=== PATIENT | male | born 1965 | race Caucasian/White ===

== ENCOUNTER 2023-03-12 14:57 | Emergency (ER) | payer MEDICAID, SELFPAY ==
--- NOTE | ~2023-03-12 | XR_ITS ---
EXAMINATION: XR SOFT TISSUE NECK CLINICAL INDICATION: Dysphasia. Unable to swallow solids. COMPARISON: None available. TECHNIQUE: 2 views of the soft tissue neck were obtained. FINDINGS: There is prominence with some irregular nodulation of the epiglottis which could be related to epiglottitis however possible tumor cannot be excluded and correlation with clinical symptoms and echogenicity is recommended. The aryepiglottic folds are not seen and I am suspicious for this representing a mass. Retropharyngeal soft tissues unremarkable. XR/XR soft tissue neck IMPRESSION: Prominence of the epiglottis suspicious for possible mass involving the epiglottis such as within the vallecula. Clinical correlation to differentiate from epiglottitis recommended. CT may be of help in further evaluation with IV contrast of the neck.
--- NOTE | ~2023-03-12 | CT_ITS ---
EXAMINATION: CT SOFT TISSUE NECK WITH CONTRAST CLINICAL INFORMATION: Epiglottic prominence. Difficulty swallowing. COMPARISON: Neck radiographs from 03/11/2023. TECHNIQUE: Multidetector helical imaging was performed in the axial plane following the administration of 60 mL of Omnipaque 350 intravenous contrast. Multiple axial reformats and coronal/sagittal reconstructions were created the technologist workstation for review. This CT examination was performed using dose optimization techniques as appropriate, variously including the following: *Automated exposure control. *Adjustment of mA and/or kV according to patient size (this includes techniques or standardized protocols for targeted exams where dose is matched to indication/reason for exam; i.e. extremities or head). *Use of iterative reconstruction technique. DLP: 999 mGy-cm FINDINGS: Irregular nodular mucosal thickening of the epiglottis, bilateral aryepiglottic folds, and inferolateral rodriguez of the pharynx. The epiglottis measures up to 1.2 cm in thickness. There is a heterogeneous right level IIa lymph node, measuring up to 2.2 cm. There is a rounded left level IIa lymph node measuring up to 1.5 cm. No significant cutaneous thickening or subcutaneous inflammation. No discrete fluid collection within the deep tissues of the neck. The premaxillary, retromaxillary, pterygopalatine fossa, orbital apical, parapharyngeal, and prelaryngeal adipose tissue is maintained. Normal appearance of the parotid, submandibular, and thyroid glands. Scattered subcentimeter lymph nodes bilaterally, none of which are pathologically enlarged or abnormally enhancing. Normal mucosal contours of the pharynx and larynx without abnormal enhancement. Normal appearance of the hyoid bone, thyroid cartilage, or cartilaginous trachea. The airways remains widely patent. No radiopaque foreign bodies. The atlantooccipital and atlantoaxial articulations remain well aligned. Mild reversal the normal cervical lordosis centered on C5. Mild degenerative anterolisthesis of C4 on C5. No evidence of acute fracture or subluxation of the cervical spine. The vertebral body heights are maintained. The intervertebral disc spaces are maintained. Facet and uncovertebral joint arthropathy leads to osseous encroachment on the neural foramina from C3-C7. No evidence of epidural collection. There is no prevertebral soft tissue swelling. Normal opacification of the cervical arterial and venous structures. The visualized portion of the skull base is without significant abnormalities. Mild mucosal thickening of the paranasal sinuses. The mastoid air cells and middle ear cavities are clear. Moderate odontogenic disease with multifocal odontogenic enamel erosions and periapical lucencies. CT Upper Chest: The visualized lung apices and upper mediastinum are within normal limits. CT/CT soft tissue neck w IV con IMPRESSION: 1. Irregular nodular mucosal thickening of the epiglottis, bilateral aryepiglottic folds, and inferolateral rodriguez of the pharynx. Findings are suspicious for an underlying epiglottic/supraglottic malignancy. Recommend correlation with direct visualization. 2. Heterogeneous 2.2 cm right level IIa lymph node and rounded 1.5 cm left level IIa lymph node, suspicious for metastatic disease. 3. Moderate odontogenic disease.
--- NOTE | 2023-03-12 15:32 | ED_ITS ---
HPI - General Adult General Chief complaint: General Medical Stated complaint: something stuck in throat Time Seen by Provider: 03/12/23 17:06 Source: patient Mode of arrival: ambulatory Limitations: no limitations History of Present Illness HPI narrative: This is a 57 year old male history of COPD, morbid obesity presenting to the ED status post normal Barium swallow test two days ago for evaluation of choking s ensation. Patient reports that he has been unable to swallow solids for three weeks but tolerating fabien liquids. Feels like something is stuck in his throat. 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 Denies changes in voice, chest pain, shortness of breath, nausea, vomiting, abdominal pain, headache, vision changes, fevers, chills, weight loss, nightsweats, dizziness and weakness. Related Data Allergies Allergy/AdvReac Type Severity Reaction Status Date / Time No Known Allergies Allergy Verified 03/12/23 15:37 [No Known Allergies*] Review of Systems Review of Systems: Constitutional : No Weight loss, No Fever, No Chills, No Fatigue, No Malaise ENT/Mouth : No sore throat, No Rhinorrhea Eyes: No Eye Pain, No Swelling, No Redness Cardiovascular : No Chest Pain, No SOB, No Dyspnea on Exertion, No Orthopnea, No Edema, No Palpitations Respiratory : No Cough, No Sputum, No Wheezing Gastrointestinal : No Nausea, No Vomiting, No Diarrhea, No Constipation, No abdominal Pain, No Hematochezia, No Melena Genitourinary : No Dysuria, No Urinary Frequency, No Hematuria, Musculoskeletal : No joint pain, No Myalgias, No Joint Swelling Skin : No Skin Lesions, No rash Neuro : No Weakness, No Numbness, No Dizziness, No Headache Psych : No Anxiety/Panic, No Depression All other systems reviewed and are negative Yes all other systems are reviewed and are negative [facility] Past Medical History Attestation statement: The following information was validated with the patient. Source: old records reviewed and nursing notes reviewed Social History Social History Smoked in Last 30 Days: No Use of substances other than those prescribed or required for medical reasons: Yes Substance Use Type: Other Substance Use Frequency: Daily Last Used Substance: Hours (ago) Any prior treatment program specific to substance use: No Advance Directives: No Advance Directives Information Provided: No Physical Exam ED Vital Signs: Vital Signs - 24 hr 03/12/23 15:33 03/12/23 17:59 03/12/23 20:10 Temperature 97.0 F 99.4 F 98.0 F Pulse Rate 82 75 77 Respiratory Rate 19 16 18 Blood Pressure 168/78 H 152/85 H 142/82 H Pulse Oximetry 99 95 94 Oxygen Delivery Method Room Air BMI result Body Mass Index 48.0 vss Appearance: Alert.? Oriented X3.? No acute distress.?Speaking in full sentences controlling well. Head: Normocephalic, atraumatic, no step-offs or deformities Pharynx: normal posterior pharynx. No edema, or abscess. Controlling secretions well and speaking in full sentences. Eyes: Pupils equal, round and reactive to light.? Neck: Normal inspection.? Neck supple.? CVS: Normal heart rate and rhythm.? Pulses normal.? Respiratory: No respiratory distress.? Breath sounds normal.? Abdomen: Soft and nontender.? Skin: Skin warm and dry.? Normal skin color.? Normal skin turgor.? Extremities: No lower extremity edema.? No calf ttp. 5/5 strength to bilateral upper and lower extremities Neuro: Oriented X 3.? No motor deficit.? No sensory deficit. CN 2-12 intact Course Course Course Narrative: RME 57 yo male with history of COPD, morbid obesity who presents to the ED post normal Barium swallow test two days ago for evaluation of choking sensation, inability to swallow solids for three weeks but tolerating liquids fine. Feels like something is stuck in his throat. On arrival patient anxious, forced upper airway wheeze, no stridor. 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 Plan: XR soft tissue neck. GI referral Reevaluation(s) Reevaluation #1: X-ray showing prominence of the epiglottis, suspicious for possible mass involving the epiglottis, such as within the vallecular. I do not suspect that this is epiglottitis. CT soft tissue neck with contrast suggested, will order a t this time. CBC within normal limits. Chemistry unremarkabl.e. Time: 17:57 Reevaluation #2: Dr. Manas KELSEY recommends patient to have direct laryngoscopy at a center with ENT. This has however been going on for 3 weeks, will seek advise from ENT unsure if emergent transfer is need. Time: 21:23 Reevaluation #3: Dr. Childers [facility] ENT tells me there is no need for emergent visualization recommends 10 mg of Decadron at this time. Will discharge him home and give him follow-up instructions with ears nose [facility] throat, [facility] per orders of Dr. Childers. Time: 21:45 Medications Administered Discontinued Medications Generic Name Dose Route Start Last Admin Trade Name Freq PRN Reason Stop Dose Admin Iohexol 100 ml 03/12/23 18:24 03/12/23 18:24 Iohexol 350 Mg/Ml 100 Ml Infus..Btl IV 03/12/23 18:25 60 ml ONCE ONE Administration Medical Decision Making Medical Decision Making [facility] Narrative: 1756 57 year old male presents w/dysphagia to solids and liquids Physical exam benign. Concerns for esophageal stricture, retained foreign body, dysphagia, possible malignancy. No signs of airway compromise. Plan at this time soft tissue neck x-ray ordered from triage will follow, likely will require a soft tissue neck with IV contrast. Differential Diagnosis Differential Diagnoses: The differential diagnosis associated with the presentation includes Concerns for esophageal stricture, retained foreign body, dysphagia, possible malignancy. No signs of airway compromise Admission/Observation Consideration of admission/observation: Escalation of care including admission/observation considered Consult Healthcare Provider Management of the patient was discussed with: Pulp House Supervisor Lab Data [facility] Lab Attestation statement: I reviewed the patient's lab results. 03/12/23 17:49 03/12/23 17:49 Labs: Lab Results 03/12/23 03/12/23 Range/Units 17:49 17:49 WBC 9.6 (4.8-10.8) X10*3/uL RBC 5.04 (4.60-5.80) X10*6/uL Hgb 15.0 (14.0-18.0) g/dl Hct 43.4 (42.0-52.0) % MCV 86.1 (80.0-98.0) fL MCH 29.8 (27.0-33.0) pg MCHC 34.6 (31.0-36.0) g/dl RDW 12.5 (11.0-16.0) % Plt Count 323 (160-400) X10*3/uL MPV 8.8 L (9.4-12.4) fL Immature Gran % (Auto) 0.4 (0.0-0.4) % Neut % (Auto) 78.2 H (45-73) % Lymph % (Auto) 13.6 L (20-40) % Dare % (Auto) 7.4 (2-11) % Eos % (Auto) 0.1 (0-4) % Baso % (Auto) 0.3 (0-2) % Lymph # (Auto) 1.3 (1.2-4.9) X10*3/uL Dare # (Auto) 0.7 (0.1-1.2) X10*3/uL Eos # (Auto) 0.0 (0.0-0.4) X10*3/uL Baso # (Auto) 0.0 (0.0-0.2) X10*3/uL Abs Immat Gran (auto) 0.04 H (0.00-0.03) X10*3/uL Absolute Neuts (auto) 7.5 (2.0-8.3) x10*3/uL Absolute Nucleated RBC 0.000 (0.0-0.012) X10*3/uL Nucleated RBC % (auto) 0.0 (0.0-0.2) /100WBC Sodium 134 L (135-145) mmol/L Potassium 3.9 (3.3-5.1) mmol/L Chloride 96 (96-108) mmol/L Carbon Dioxide 26 (22-29) mmol/L Anion Gap 16 (12-20) BUN 11 (9-16) mg/dL Creatinine 1.01 (0.5-1.4) mg/dL Estim Creat Clear Calc 127.9 Estimated GFR > 60 Random Glucose 122 H (60-115) mg/dL Calcium 9.6 (8.4-10.2) mg/dL Independent Interpretation I performed an independent interpretation of an: Plain X-Ray (Prominence of epiglottis recommend CT scan) and CT Scan (Concerns for throat malignancy) Radiology Impression Discussion of test interpretation with radiology: I have reviewed the radiologist's reading. Core Measures AMI core measures followed: Yes Measure exclusions: not indicated Critical Care Time Critical Care Time Critical Care Time: Yes Total Critical Care Time: 45 Attestation: I attest to this time spent taking care of the patient, obtaining history, physical, reviewing labs, imaging, speaking to my attending, speaking to specialist. Discharge Plan Discharge Clinical Impression: Dysphagia Patient Disposition: Home, Self-Care Instructions: Dysphagia (ED) Additional Instructions: Take your medications as prescribed. If you were prescribed antibiotics today, it is important that you take your medication to their entirety, do not skip any doses, do not finish them early. Follow-up with your primary care provider this week. Return to the emergency department with new or worsening symptoms. In case of emergency call [address] scan shows suspicion for throat cancer so you you need to see a specialist for this tomorrow. Please call Ears, Nose and Throat first thing tomorrow morning tell them Dr. Childers needs you to be seen today. Please bring the scan disc, and copy of note. They will not see you without this! [phone] Referrals: Chato Thomason MD [Primary Care Provider] - 2 days Stand Alone Forms: Work/School Release
[2023-03-12 15:33] VITALS: BP 168/78; PULSE 82; RESP 19; TEMP 36.1; O2SAT 99; BMI 48.0
--- NOTE | 2023-03-12 16:36 | PC.NURSE ---
Pt became agitated regarding wait time. Pt educated that nursing staff is not able to disclose test results and that he would need to be evaluated by a provider. Pt walked out of waiting room at this time.
--- NOTE | 2023-03-12 17:22 | PC.NURSE ---
Registration notified me that the patient had returned at this time.
[2023-03-12 17:54] LABS: MANUAL DIFF FLAG NO
[2023-03-12 17:55] LABS: Basophils Percent Auto 0.3 % (0-2); Eosinophils Percent Auto 0.1 % (0-4); Hematocrit 43.4 % (42.0-52.0); Imm Gran Abs Auto 0.04 X10*3/uL (0.00-0.03); Imm Gran Pct Auto 0.4 % (0.0-0.4); Lymphocytes Absolute Auto 1.3 X10*3/uL (1.2-4.9); Lymphocytes Percent Auto 13.6 % (20-40); Mean Corpuscular HGB Conc 34.6 g/dl (31.0-36.0); Mean Corpuscular Hemoglobin 29.8 pg (27.0-33.0); Mean Corpuscular Volume 86.1 fL (80.0-98.0); Mean Platelet Volume 8.8 fL (9.4-12.4); Monocytes Absolute Auto 0.7 X10*3/uL (0.1-1.2); Monocytes Percent Auto 7.4 % (2-11); Neutrophils Absolute Auto 7.5 x10*3/uL (2.0-8.3); Neutrophils Percent Auto 78.2 % (45-73); Platelet Count 323 X10*3/uL (160-400); Red Blood Count 5.04 X10*6/uL (4.60-5.80); Red Cell Distribution Width 12.5 % (11.0-16.0); White Blood Count 9.6 X10*3/uL (4.8-10.8)
[2023-03-12 17:59] VITALS: BP 152/85; PULSE 75; RESP 16; TEMP 37.4; O2SAT 95
[2023-03-12 18:12] LABS: Anion Gap 16 (12-20); Blood Urea Nitrogen 11 mg/dL (9-16); Calcium 9.6 mg/dL (8.4-10.2); Carbon Dioxide 26 mmol/L (22-29); Chloride 96 mmol/L (96-108); Creatinine Clr Calc Pharmacy 127.9; Estimated Glomerular Filt Rate > 60; Glucose Random 122 mg/dL (60-115); Potassium 3.9 mmol/L (3.3-5.1); Sodium 134 mmol/L (135-145)
[2023-03-12] MEDS: iohexoL 350 MG/ML 100 ML INFUS..BTL IV (18:24)
[2023-03-12 20:10] VITALS: BP 142/82; PULSE 77; RESP 18; TEMP 36.7; O2SAT 94
[2023-03-12] MEDS: dexAMETHasone sod phosphate 10 MG/ML VIAL IVPUSH (21:53)
== END 2023-03-12 22:12 | disposition home or self-care (01) ==
PROVIDERS: Physician Assistant; Emergency Provider Emergency Medicine; PCP Internal Medicine
DX: R13.10 Dysphagia, unspecified (principal); M54.2 Cervicalgia; Z79.899 Other long term (current) drug therapy
CPT/HCPCS: 36415; 70360; 70491; 80048; 85025; 96374; 99284; J1100; Q9967

== ENCOUNTER 2025-01-14 13:16 | Outpatient (AMB) | payer MEDICAID, SELFPAY ==
--- NOTE | 2025-01-14 13:19 | A.OFFVIS_ITS ---
Vital Signs 01/14/25 13:30 BP 109/56 L Blood Pressure Location Lt brachial Position Sitting Pulse 56 Pulse Source Pulse Oximeter Pulse Oximetry (%) 97 Oxygen Delivery Method Room Air Intake Visit Reasons: Dysphagia unspecified type [employer] Required: No Accompanied by: Mother Allergies lisinopril Allergy (Unknown, Verified 01/14/25 15:14) Swelling HPI Comments Details: The patient is a 59-year-old male presenting with chronic pain management and peripheral neuropathy. The patient has a complex medical history, including a diagnosis of cancer that required multiple surgeries, including removal of the voice box and lymph nodes, as part of treatment for head and neck cancer. 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 This neuropathy was noted to have worsened after chemotherapy, although initial symptoms predated chemotherapy treatment. The patient's pain regime includes gabapentin, methadone and oxycodone; however, he reports limited relief from his current medications. The patient experiences significant discomfort due to his neuropathy, impacting his daily activities. He has trialed compression stockings with minimal benefits. 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 The patient has had seven cancer-related surgeries and exhibits lymphedema in the neck area from prior lymphadenectomy. - Onset: Feet: Initially noted before chemotherapy, worsened post-chemotherapy. Chest: started after multiple surgeries for cancer treatment. - Quality: Described as constant burning, pins, and needles. - Location: Both feet, chest, anterior neck - Exacerbating factors: Movement, nighttime. - Relieving factors: No significant relief reported with current treatments. - Interference with activities: Affects mobility and quality of sleep. - Affect: Pain impacts mood and overall psychological well-being. - Analgesia: Currently on gabapentin, oxycodone, methadone; limited effecti veness reported. No significant relief noted. - Adverse effects: None explicitly stated but potential for medication tolerance is implied. - Activities of Daily Living: Pain affects mobility, particularly during nighttime, contributing to sleep disturbance. - Aberrant Drug Related Behaviors: No evidence of misuse found, although reports of street use for methadone prior to medical management. [facility] Medical History (Updated 01/14/25 @ 15:14 by Juju Raymond) Severe episode of recurrent major depressive disorder Fistula GERD (gastroesophageal reflux disease) Dehiscence of wound Squamous cell carcinoma of larynx Osteoarthritis Hypertension Hypercholesterolemia COPD (chronic obstructive pulmonary disease) Simple chronic bronchitis Surgical History (Updated 01/14/25 @ 14:02 by Juju Raymond) Hx of laryngectomy Social History Substance Use Type: Other Review of Systems Const All systems reviewed & are unremarkable except as noted in HPI and below Physical Exam Vital Signs: Last Vital Signs Pulse 56 01/14/25 13:30 BP 109/56 L 01/14/25 13:30 Pulse Ox 97 01/14/25 13:30 Oxygen Delivery Method Room Air 01/14/25 13:30 General: awake, alert, oriented. Answers questions appropriately. Fully engaged in examination. Skin: warm, dry, intact. Scars from previous surgeries on the chest and left side neck. Lymphatic: Evidence of lymphedema in the neck area. HEENT: Normocephalic. Hearing intact. +Trach. Cardiac: External chest normal in appearance. Respiratory: No cough, audible wheezing or stridor. Abdomen: without gross distension. +feeding tube. MS: No obvious swelling or deformities. Neurological: Oriented to person, place, time and situation. Thought process intact. No gait abnormalities appreciated. Psychiatric: Appropriate mood and affect. Good judgment and insight. Assessment & Plan Assessment & Plan (1) Chronic pain syndrome: Code(s): G89.4 - Chronic pain syndrome Category: Medical (2) Non-cardiac chest pain: Code(s): R07.89 - Other chest pain Category: Medical (3) Anterior neck pain: Code(s): M54.2 - Cervicalgia Category: Medical (4) Other chronic postoperative pain: Code(s): G89.28 - Other chronic postprocedural pain Category: Medical (5) Peripheral neuropathy: Code(s): G62.9 - Polyneuropathy, unspecified Category: Medical (6) Lumbar radiculopathy: Code(s): M54.16 - Radiculopathy, lumbar region Category: Medical Plan I will order a nerve conduction study to detail the severity of peripheral neuropathy. Treatment options will include submission for insurance approval of topical capsaicin patches, with application procedures thoroughly explained. Records will be sourced from [facility] for holistic data on prior interventions and to guide subsequent management plans. An integrated approach addressing both pain control and underlying contributing factors allows for a tailored patient care strategy. I informed the patient about the likely multifaceted causes of his chronic pain syndrome, primarily attributable to chemotherapy-related neuropathy and past surgical interventions for cancer. The capsaicin patch procedure as a viable approach to neuropathy was extensively discussed, covering its mechanics, timing, potential side effects, and anticipated relief onset times. Insurance approval processes were highlighted. The need for a thorough review of the patient's comprehensive medical records from [facility] was underscored, providing foundational knowledge for future management. Both benefits and risks of procedures and medication adjustments were explained, with patient agreement obtained for the suggested studies and treatments. - Follow up on the nerve conduction study appointment when contacted. - Await call for scheduling Qutenza therapy once insurance approval is received. - Continue current medications as directed and report any adverse effects. - Sign medical release forms for obtaining past medical records. - Return for consultation after study results and implement necessary modifications in treatment as required. - Contact immediately if experiencing new or worsening symptoms. Follow up in the office once records have been received to further discuss care plan after medical record review. Patient was informed and verbally consented to the use of an ambient scribe for clinic note documentation during this visit. Orders: Orders NE electromyogram (EMG) Today G62.9 - Polyneuropathy, unspecified, M54.16 - Radiculopathy, lumbar region Coding Level of Care Code New Pt Level 4 (96293) Complex EM visit Add On G2211 Diagnoses Chronic pain syndrome G89.4 Non-cardiac chest pain R07.89 Anterior neck pain M54.2 Other chronic postoperative pain G89.28 Peripheral neuropathy G62.9 Lumbar radiculopathy M54.16
[2025-01-14 13:30] VITALS: BP 109/56; PULSE 56; O2SAT 97
--- OUTSIDE RECORDS SUMMARY | 2025-01-14 15:39 | XMS_ITS | Encounter Summary ---
Author Organization [employer] Address [address] [facility] 7 [place] [address] Care Team Providers Care Child Care Team Lead Name Role Phone Chato Thomason MD Primary Care Provider [phone] Reason for Visit * Reason Onset Date Comments PT-1 01/14/2025 Encounter Details Date Type Department Care Team ([facility] st Contact Info) Description 01/14/2025 Telephone [facility] MEDICINE [address] [place], [place] [id number] Chato Thomason MD [address] [place] [address] PT-1 (/) Social History Tobacco Use Types Packs/Day Years Used Date Smoking Tobacco: Former Cigarettes 1 - 2022 Passive Smoke Exposure: Current Smokeless Tobacco: Former Comments:Has quit smoking co mpletely 6 months ago. Alcohol Use Standard Drinks/Week Comments Never 0 (1 standard drink = 0.6 oz pur e alcohol) Depression Answer Date Recorded Patient Health Questionnaire-9 Score 19 08/03/2024 Patient Health Questionnaire-9 Score 19 08/03/2024 Last PHQ-9: Questionnaire Data Not on file 1 Housing Stability Answer Date Recorded What is your housing situation today? I have edson fontaine 08/11/[address] you li ve. Do you have problems with any of the following? None of the above 08/11/2023 Food Insecurity Answer Date Recorded Within the past 12 months, y ou worried that your food would run out before you got money to buy more: Never True 11/14/2023 Within the past 12 months,th e food you bought just didn't last and you didn't have enough money to get more: Never True Transportation Answer Date Recorded In the past 12 months, has l ack of transportation kept you from medical appts, meetings, work or from getting things needed for daily living? Yes, it has kept me from medical appointments or getting medications. 06/08/2024 Utilities Answer Date Recorded In the past 12 months, has t he electric, gas, oil or water company threatened to shut off services in your home? No 08/11/2023 Depression Answer Date Recorded Patient Health Questionnaire-2 Score 6 08/03/2024 Internet Access Answer Date Recorded Internet Access Q1 Yes 06/25/2024 Internet Access Q2 Not on file 06/25/2024 Sex and Gender Information Value Date Recorded Sex Assigned at Male 08/26/2022 10:19 AM EDT Legal Sex Male 10:19 AM EDT Gender Identity Choose not to disclose 10:19 AM EDT Sexual Orientation Choose not to disclose 2021 10:19 AM EDT documented as of this encounter Progress Notes * Kelsey Minaya - 01/14/2025 9:19 AM EDT CHW Kelsey Minaya, submitted PT1 for [facility] 5x a month as requested by patient. CHW called patient and informed of PT1 submission. documented in this encounter Miscellaneous Notes * Telephone Encounter - Reuben Edward - 01/14/2025 8:03 AM EDT Patient calling requesting PT1 Home Address verified: Y/N: Yes Provider name or facility name: [address] [place] [address]. [facility] Escort needed: Y/N: Yes Do you have a wheelchair: Y/N: No If yes- Manual or electric: Visits: (5 x Monthly) Contact Mom at [phone] documented in this encounter Plan of Treatment Upcoming Encounters Date Type Department Care Team ([facility] Contact Info) Description 01/24/2025 9:00 AM EDT Telemedicine [facility] [address] [place] [address] 02/11/2025 10:00 AM EDT Office Visit [facility] ADULT DENTAL [address] [place] [address] EvanSal DDS [address] [place] [address] 2025 11:00 AM EDT Telemedicine [facility] MED & PEDS [address] [place] [address] Linda Pelaez, WALT 505 [place] [address] 04/19/2025 2:00 PM EDT Office Visit [facility] MED & PEDS [address] [place] [address] Chato Thomason MD [address] [place] [address] documented as of this encounter Visit Diagnoses Not on filedocumented in this encounter Additional Health Concerns Assessment Noted Time PHQ-9 Depression Total Score: 19 024 3:44 PM EDT documented as of this encounter Care Teams Child Care Team Lead Relationship Specialty Start Date End Date Chato Thomason MD [address] [place] [address] PCP - General Internal Medicine 10/27/18 Mackenzie Roland Senior Applications Developer 07/09/24 Angela Pozo Senior Applications Developer 07/09/24 [facility] 06/12/23 documented as of this encounter
--- OUTSIDE RECORDS SUMMARY | 2025-01-14 15:39 | XMS_ITS | Encounter Summary ---
Author Organization [employer] Address [address] [facility] 7 [place] [address] Care Team Providers Care Consumer Sales Representative Name Role Phone Chato Thomason MD Primary Care Provider [phone] Reason for Visit * Reason Comments SDOH Concerns C3CM/IVON [place] PT1 Encounter Details Date Type Department Care Team ([facility] st Contact Info) Description 12/28/[address] [facility] MEDICINE [address] [place] [address] Chato Thomason MD [address] [place] [address] SDOH Concerns (MEJIA/IVON Vasques PT1) Social History Tobacco Use Types Packs/Day Years [...] encounter Progress Notes * Kelsey Minaya - 12/28/2024 9:39 AM EST PT1 to [facility] submitted today. Patient's mother was informed. Phone number to scheduletransportation for future appts given to patient's mother. documented in this encounter Plan of Treatment Upcoming Encounters Date Type Department Care Team (Late st Contact Info) Description 01/24/2025 9:[address] [facility] MEDICINE [address] [place] [address] 02/11/2025 10:00 AM EDT Office Visit [facility] ADULT DENTAL [address] [place] [address] Sal Gordon DDS [address] [place] [address] 2025 11:[address] [facility] MED & PEDS [address] [place] [address] Linda Pelaez, WALT [address] [place] [address] 04/19/2025 2:00 PM EDT Office Visit [facility] MED & PEDS [address] [place] [address] Chato Thomason MD [address] [place] [address] documented as of this encounter Visit Diagnoses Not on filedocumented in this encounter Additional Health Concerns Assessment Noted Time PHQ-9 Depression Total Score: 19 024 3:44 PM EDT documented as of this encounter Care Teams Consumer Sales Representative Relationship Specialty Start Date End Date Chato Thomason MD [address] [place] [address] PCP - General Internal Medicine 10/27/18 Mackenzie Roland Business Continuity Manager 07/09/24 Angela Pozo Business Continuity Manager 07/09/24 [facility] 06/12/23 documented as of this encounter
--- OUTSIDE RECORDS SUMMARY | 2025-01-14 15:39 | XMS_ITS | Encounter Summary ---
Author Organization [employer] Address 75 [facility] 7t [place] [address] Care Team Providers Care Solicitor Patent Name Role Phone Chato Thomason MD Primary Care Provider [phone] Encounter Details Date Type Department Care Team ([facility] st Contact Info) Description 01/12/2025 Patient Outreach [facility] MEDICINE [address] [place] [address] Chato Thomason MD [address] [place] [address] Social History Tobacco Use Types Packs/Day Years [...] AM EDT documented as of this encounter Plan of Treatment Upcoming Encounters Date Type Department Care Team (Late st Contact Info) Description 01/24/2025 9:00 AM EDT Telemedicine [facility] MEDICINE [address] [place] [address] 02/11/2025 10:00 AM EDT Office Visit [facility] ADULT DENTAL [address] [place] [address] Sal Gordon DDS [address] [place] [address] 2025 11:00 AM EDT Telemedicine [facility] MED & PEDS [address] [place] [address] Linda Pelaez RN 505 [place] [address] 04/19/2025 2:00 PM EDT Office Visit [facility] MED & PEDS [address] [place] [address] Chato Thomason MD [address] [place] [address] documented as of this encounter Visit Diagnoses Not on filedocumented in this encounter Additional Health Concerns Assessment Noted Time PHQ-9 Depression Total Score: 19 024 3:44 PM EDT documented as of this encounter Care Teams Solicitor Patent Relationship Specialty Start Date End Date Chato Thomason MD [address] [place] [address] PCP - General Internal Medicine 10/27/18 Mackenzie Roland Fiction And Nonfiction Author 07/09/24 Angela Pozo Fiction And Nonfiction Author 07/09/24 [facility] 06/12/23 documented as of this encounter
--- OUTSIDE RECORDS SUMMARY | 2025-01-14 15:39 | XMS_ITS | Encounter Summary ---
Author Organization [employer] Address [address] [place] [address] 7t [place] [address] Care Team Providers Care Peanut Sheller Name Role Phone Chato Thomason MD Primary Care Provider [phone] Reason for Visit * Reason Onset Date Comments Med Refill 01/10/2025 Encounter Details Date Type Department Care Team ([facility] Contact Info) Description 01/10/2025 Refill [facility] CHC MED & PEDS [address] [place] [address] Linda Pelaez, RN [address] [place] [address] Anxiety; Squamous cell carcinoma of larynx (CMS/HCC) Social History Tobacco Use Types Packs/Day Years [...] is your housing situation today? I have edsonlynn fontaine 08/11/[address] you [...] Info) Description 01/24/2025 9:00 AM EDT Telemedicine [facility] MEDICINE [address] [place] [address] 02/11/2025 10:00 AM EDT Office Visit [facility] ADULT DENTAL [address] [place] [address] Sal Gordon DDS [address] [place] [address] 2025 11:00 AM EDT Telemedicine [facility] MED & PEDS [address] [place] [address] Linda Pelaez, WALT [address] [place] [address] 04/19/2025 2:00 PM EDT Office Visit [facility] MED & PEDS [address] [place] [address] Chato Thomason MD [address] [place] [address] documented as of this encounter Visit Diagnoses Diagnosis Anxiety Anxiety state, unspecified Squamous cell carcinoma of larynx (CMS/HCC) Malignant neoplasm of larynx, unspecified site documented in this encounter Additional Health Concerns Assessment Noted Time PHQ-9 Depression Total Score: 19 024 3:44 PM EDT documented as of this encounter Care Teams Peanut Sheller Relationship Specialty Start Date End Date Chato Thomason MD [address] [place] [address] PCP - General Internal Medicine 10/27/18 Mackenzie Roland Shirt Folding Machine Operator 07/09/24 Angela Pozo Shirt Folding Machine Operator 07/09/24 [facility] 06/12/23 documented as of this encounter
--- OUTSIDE RECORDS SUMMARY | 2025-01-14 15:39 | XMS_ITS | Encounter Summary ---
Author Organization [employer] Address [address] [place] [address] 7t [place] [address] Care Team Providers Care Pumping Supervisor Name Role Phone Chato Thomason MD Primary Care Provider [phone] Encounter Details Date Type Department Care Team ([facility] st Contact Info) Description 12/17/2024 Telephone [facility] CHC ADULT DENTAL [address] [place], [place] [phone] Gela Reid, DDS [address] [place], [place] [phone] Social History Tobacco Use Types Packs/Day Years [...] AM EDT documented as of this encounter Miscellaneous Notes * Telephone Encounter - Venkat Zheng - 12/17/2024 10:15 AM EST call was transferred. Angelica was the one on the phone, unable to speak with other person that is not the patient due to her name not being on the HIPAA. Angelica got really upset and start giving attitude over the phone. I told her that if at least the pt is next to her we can be able to continue the communication. As I was talking to the patient Angelica kept talking over saying I don't know why she doesn't want to talk to me, I already spoke with Dr. Thomason (medical), this is ridiculous. I don't know what's her problem I told her that we can resolve this upon next visit if they do the HIPAA again with her name on it, also specified to Angelica that medical is different than dental on which she responded fuck you on the background. I finish the call by telling both that at this point the conversation has ended and to have a good day. documented in this encounter Plan of Treatment Upcoming Encounters Date Type Department Care Team (Late st Contact Info) Description 01/24/2025 9:00 AM EDT Telemedicine [facility] MEDICINE [address] [place] [address] 02/11/2025 10:00 AM EDT Office Visit [facility] ADULT DENTAL [address] [place] [address] Sal Gordon DDS [address] [place] [address] 2025 11:00 AM EDT Telemedicine [facility] MED & PEDS [address] [place] [address] Linda Pelaez, RN [address] [place] [address] 04/19/2025 2:00 PM EDT Office Visit [facility] MED & PEDS [address] [place] [address] Chato Thomason MD [address] [place] [address] documented as of this encounter Visit Diagnoses Not on filedocumented in this encounter Additional Health Concerns Assessment Noted Time PHQ-9 Depression Total Score: 19 024 3:44 PM EDT documented as of this encounter Care Teams Pumping Supervisor Relationship Specialty Start Date End Date Chato Thomason MD [address] [place] [address] PCP - General Internal Medicine 10/27/18 Mackenzie Roland Financial Administration Officer 07/09/24 Angela Pozo Financial Administration Officer 07/09/24 [facility] 06/12/23 documented as of this encounter
--- OUTSIDE RECORDS SUMMARY | 2025-01-14 15:39 | XMS_ITS | Encounter Summary ---
Author Organization [employer] Address [address] [facility] 7 [place] [address] Care Team Providers Care Reformatory Attendant Name Role Phone Chato Thomason MD Primary Care Provider [phone] Reason for Visit * Reason Onset Date Comments Medication Question 12/20/2024 Encounter Details Date Type Department Care Team ([facility] st Contact Info) Description 12/20/2024 Telephone [facility] MEDICINE [address] [place], [place] [phone] Chato Thomason MD [address] [place] [address] Medication Question Social History Tobacco Use Types Packs/Day Years Used Date Smoking Tobacco: Former Cigarettes 1 2022 Passive Smoke Exposure: Current Smokeless Tobacco: [...] encounter Miscellaneous Notes * Telephone Encounter - Fatoumata Simeon RN - 12/21/2024 11:15 AM EST TC to pt mom with recommendations from provider. Informed pt mom that provider has increased dose of trazodone and that provider has made a referral to pain management. All questions answered. Pt momverbalized understanding and agreement with plan. * Telephone Encounter - Fatoumata Simeon RN - 12/20/2024 9:12 AM EST TC to pt mom to clarify. Pt mom stated that the pt has increased frustration and anxiety after taking lorazepam, pt is taking 100mg of trazodone daily at bedtime and is waking up every 2 to 3 hours during the night, pt is still complaining of unrelieved pain with gabapentin dose increase. Pt mom stated that oxycodone and lorazepam also needs to be refilled for pt. Routing to provider and LEAF CONDITIONER for r eview and recommendation. * Telephone Encounter - Reuben Mcelroy 12/20/2024 8:16 AM EST Tc from pt mom stating that she talked with PCP and was told to Increase the dosage for med gabapentin (Neurontin) 250 MG/5ML solution but she states nikhil the pt is still complaining that it is not Working. She states that she was Intrusted by the PCP that she would have to see a Neurologist if it wasn't working. And Mom states that Pt is still having trouble sleeping and that the traZODone (Desyrel) 50 MG tablet is not helping. Pt mom also wanted to mention that Pt has been depressed lately and she was wondering if that was aSide Affect from the Lorazepam and she states that the med Dosent Help Pt and she was wondering if it could be changed. Contact pt at [phone] documented in this encounter Plan of Treatment Upcoming Encounters Date Type Department Care Team (Late st Contact Info) Description 01/24/2025 9:00 AM EDT Telemedicine [facility] MEDICINE [address] [place] [address] 02/11/2025 10:00 AM EDT Office Visit [facility] ADULT DENTAL [address] [place] [address] Sal Gordon DDS [address] [place] [address] 2025 11:00 AM EDT Telemedicine [facility] MED & PEDS [address] [place] [address] Linda Pelaez RN [address] [place] [address] 04/19/2025 2:00 PM EDT Office Visit [facility] MED & PEDS [address] [place] [address] Chato Thomason MD [address] [place] [address] documented as of this encounter Visit Diagnoses Not on filedocumented in this encounter Additional Health Concerns Assessment Noted Time PHQ-9 Depression Total Score: 19 024 3:44 PM EDT documented as of this encounter Care Teams Reformatory Attendant Relationship Specialty Start Date End Date Chato Thomason MD [address] [place] [address] PCP - General Internal Medicine 10/27/18 Mackenzie Roland Rotoprinter 07/09/24 Angela Pozo Rotoprinter 07/09/24 [facility] 06/12/23 documented as of this encounter
--- OUTSIDE RECORDS SUMMARY | 2025-01-14 15:39 | XMS_ITS | Encounter Summary ---
Author Organization [employer] Address [address] [place] [address] 7 [place] [address] Care Team Providers Care Digital Advisor Name Role Phone Chato Thomason MD Primary Care Provider [phone] Reason for Visit * Reason Comments Pre-visit Planning SDOH will need to be completed in office. Encounter Details Date Type Department Care Team ([facility] Contact Info) Description 01/06/2025 Patient Outreach [facility] CHC MED & PEDS [address] [place], [place] [phone] Chato Thomason MD [address] [place] [address] Pre-visit Planning (SDOH will need to be completed in office. ) Social History Tobacco Use Types Packs/Day Years [...] as of this encounter Progress Notes * Maranda Neff - 01/06/2025 4:35 PM EDT ESTEFANI Conde placed successful outbound call to patient for pre-visit planning. Patient name and confirmed. Patient confirms appt date and time, and has transportation arrangements. Biggest concern for appointment at this time is no concerns. Appropriate screenings completed in anticipation ofappointment. documented in this encounter Plan of Treatment Upcoming Encounters Date Type Department Care Team (Late st Contact Info) Description 01/24/2025 9:00 AM EDT Telemedicine [facility] MEDICINE [address] [place], [place] [phone] 02/11/2025 10:00 AM EDT Office Visit [facility] ADULT DENTAL [address] [place] [address] Sal Gordon DDS [address] [place] [address] 2025 11:00 AM EDT Telemedicine [facility] MED & PEDS [address] [place] [address] Linda Pelaez RN [address] [place] [address] 04/19/2025 2:00 PM EDT Office Visit [facility] MED & PEDS [address] [place] [address] Chato Thomason MD [address] [place] [address] documented as of this encounter Visit Diagnoses Not on filedocumented in this encounter Additional Health Concerns Assessment Noted Time PHQ-9 Depression Total Score: 19 024 3:44 PM EDT documented as of this encounter Care Teams Digital Advisor Relationship Specialty Start Date End Date Chato Thomason MD [address] [place] [address] PCP - General Internal Medicine 10/27/18 Mackenzie Roland Mechanic/Welder 07/09/24 Angela Pozo Mechanic/Welder 07/09/24 [facility] 06/12/23 documented as of this encounter
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
--- OUTSIDE RECORDS SUMMARY | 2025-01-14 15:39 | XMS_ITS | Encounter Summary ---
Author Organization [employer] Address 75 [facility] 7 [place] [address] Care Team Providers Care It Application Administrator Name Role Phone Chato Thomason MD Primary Care Provider [phone] Reason for Visit * Reason Onset Date Comments Chart Prep 01/12/2025 Encounter Details Date Type Department Care Team ([facility] Contact Info) Description 01/12/2025 Telephone [facility] CHC MED & PEDS [address] [place], [place] [phone] Chato Thomason MD 505 [place] [address] Chart Prep Social History Tobacco Use Types Packs/Day Years [...] encounter Miscellaneous Notes * Telephone Encounter - Radha Preston MA - 01/12/2025 3:10 PM EDT Chart Prep Labs: not done Images: done Vaccines due: yes Referrals: complete Screenings: colonoscopy , STI screening Overdue care gaps: Sbirt, PHQ-9, Oral Health, disability screening documented in this encounter Plan of Treatment Upcoming Encounters Date Type Department Care Team (Late st Contact Info) Description 01/24/2025 9:00 AM EDT Telemedicine [facility] MEDICINE [address] [place] [address] 02/11/2025 10:00 AM EDT Office Visit [facility] ADULT DENTAL [address] [place] [address] Sal Gordon DDS [address] [place] [address] 2025 11:00 AM EDT Telemedicine [facility] CHC MED & PEDS [address] [place] [address] Linda Pelaez, WALT 505 [place] [address] 04/19/2025 2:00 PM EDT Office Visit [facility] CHC MED & PEDS [address] [place] [address] Chato Thomason MD 505 [place] [address] documented as of this encounter Visit Diagnoses Not on filedocumented in this encounter Additional Health Concerns Assessment Noted Time PHQ-9 Depression Total Score: 19 024 3:44 PM EDT documented as of this encounter Care Teams It Application Administrator Relationship Specialty Start Date End Date Chato Thomason MD 505 [place] [address] PCP - General Internal Medicine 10/27/18 Mackenzie Roland Community Representative 07/09/24 Angela Pozo Community Representative 07/09/24 [facility] 06/12/23 documented as of this encounter
--- OUTSIDE RECORDS SUMMARY | 2025-01-14 15:39 | XMS_ITS | Encounter Summary ---
Author Organization [employer] Address 75 [facility] 7t [place] [address] Care Team Providers Care Tele Tech Name Role Phone Chato Thomason MD Primary Care Provider [phone] Encounter Details Date Type Department Care Team ([facility] st Contact Info) Description 01/07/2025 Population Health Risk Score [facility] (C3) Department [address] [id number] Provider, Population Health Generic Social History Tobacco Use Types Packs/Day Years [...] Upcoming Encounters Date Type Department Care Team ([facility] st Contact Info) Description 01/24/2025 9:00 AM EDT Telemedicine [facility] MEDICINE [address] [place] [address] 02/11/2025 10:00 AM EDT Office Visit [facility] ADULT DENTAL [address] [place] [address] Sal Gordon DDS [address] [place] [address] 2025 11:00 AM EDT Telemedicine [facility] MED & PEDS 505 [place] [address] Linda Pelaez RN [address] [place] [address] 04/19/2025 2:00 PM EDT Office Visit [facility] MED & PEDS [address] [place] [address] Chato Thomason MD 505 [place] [address] documented as of this encounter Visit Diagnoses Not on filedocumented in this encounter Additional Health Concerns Assessment Noted Time PHQ-9 Depression Total Score: 19 024 3:44 PM EDT documented as of this encounter Care Teams Tele Tech Relationship Specialty Start Date End Date Chato Thomason MD [address] [place] [address] PCP - General Internal Medicine 10/27/18 Mackenzie Roland Banana Expert 07/09/24 Angela Pozo Banana Expert 07/09/24 [facility] 06/12/23 documented as of this encounter
--- OUTSIDE RECORDS SUMMARY | 2025-01-14 15:39 | XMS_ITS | Encounter Summary ---
Author Organization [employer] Address 75 [facility] 7t [place] [address] Care Team Providers Care Woven Paper Hat Mender Name Role Phone Chato Thomason MD Primary Care Provider [phone] Reason for Visit * Reason Comments Care Coordination Outreach Encounter Details Date Type Department Care Team (Latest Contact Info) Description 01/12/2025 Patient Outreach [facility] MEDICINE [address] [place] [address] Chato Thomason MD 505 [place] [address] Care Coordination (Outreach) Social History Tobacco Use Types Packs/Day Years Used Date Smoking Tobacco: Former Cigarettes - 2022 Passive Smoke Exposure: Current Smokeless [...] as of this encounter Progress Notes * Josephine Block - 01/12/2025 2:39 PM EDT CHW Josephine Block , placed outbound call to patient in regards to offer services. CHW introducing herself from [facility] CM Department with CHW's name, department and direct contact [phone] requesting call back. Will re-attempt to contact within 5 days. and address not confirmed. documented in this encounter Plan of Treatment Upcoming Encounters Date Type Department Care Team (Late st Contact Info) Description 01/24/2025 9:00 AM EDT Telemedicine [facility] MEDICINE [address] [place] [address] 02/11/2025 10:00 AM EDT Office Visit [facility] ADULT DENTAL [address] [place] [address] Sal Gordon DDS [address] [place] [address] 2025 11:00 AM EDT Telemedicine [facility] CHC MED & PEDS [address] [place] [address] Linda Pelaez RN [address] [place] [address] 04/19/2025 2:00 PM EDT Office Visit [facility] CHC MED & PEDS 505 [place] [address] Chato Thomason MD 505 [place] [address] documented as of this encounter Visit Diagnoses Not on filedocumented in this encounter Additional Health Concerns Assessment Noted Time PHQ-9 Depression Total Score: 19 024 3:44 PM EDT documented as of this encounter Care Teams Woven Paper Hat Mender Relationship Specialty Start Date End Date Chato Thomason MD 505 [place] [address] PCP - General Internal Medicine 10/27/18 Mackenzie Roland Blacksmith Apprentice 07/09/24 Angela Pozo Blacksmith Apprentice 07/09/24 [facility] 06/12/23 documented as of this encounter
--- OUTSIDE RECORDS SUMMARY | 2025-01-14 15:39 | XMS_ITS | Encounter Summary ---
Author Organization [employer] Address [address] [place] [address] 7t [place] [address] Care Team Providers Care Template Checker Name Role Phone Chato Thomason MD Primary Care Provider [phone] Reason for Visit * Reason Comments controlled substance treatment Encounter Details Date Type Department Care Team (Latest Contact Info) Description 01/10/2025 1:30 PM EDT Telemedicine [facility] MED & PEDS 505 [place], [place] [phone] Linda Pelaez RN 505 [place] [address] Long-term current use of opiate analgesic; Long-term current use of benzodiazepine Social History Tobacco Use Types Packs/Day Years [...] as of this encounter Progress Notes * Linda Pelaez RN - 01/10/2025 1:30 PM EDT S: ASSEMBLY HAND Televisit. Spoke with Angelica, patient's mother who is on HIPAA. Per PCP ok to do ASSEMBLY HAND Televisits. Patient is taking Lorazepam 1 mg every 12 hrs PRN. Oxycodone 7.5mg Q 6hrs PRN. Denies any adverse events. Last PCP f/u was on 10/14/24. F/u with PCP 01/13/25. O: CLOSING SUPERVISOR checked on 01/10/25. Lorazepam last refilled on 12/22/24. Pill count performed over the phone,2 pills left, 1 expected. Oxycodone refilled on 12/22/24, 4 left, 0 expected. Medications are not being overused. A: Chronic opioid use use r/t chronic pain. P: Patient to cont. with current medication regimen as needed and take medication only as directed.Next ASSEMBLY HAND NV scheduled for 03/28/25 @11am. F/u with PCP 01/13/25. f/u sooner PRN. Patient verbalized understanding and agreed to plan. documented in this encounter Plan of Treatment Upcoming Encounters Date Type Department Care Team (Late st Contact Info) Description 01/24/2025 9:00 AM EDT Telemedicine [facility] MEDICINE [address] [place] [address] 02/11/2025 10:00 AM EDT Office Visit [facility] ADULT DENTAL [address] [place] [address] Sal Gordon DDS [address] [place] [address] 2025 11:00 AM EDT Telemedicine [facility] MED & PEDS [address] [place] [address] Linda Pelaez RN 505 [place] [address] 04/19/2025 2:00 PM EDT Office Visit [facility] MED & PEDS 505 [place] [address] Chato Thomason MD 505 [place] [address] documented as of this encounter Visit Diagnoses Diagnosis Long-term current use of opiate analgesic Encounter for long-term (current) use of other medications Long-term current use of benzodiazepine documented in this encounter Additional Health Concerns Assessment Noted Time PHQ-9 Depression Total Score: 19 024 3:44 PM EDT documented as of this encounter Care Teams Template Checker Relationship Specialty Start Date End Date Chato Thomason MD [address] [place] [address] PCP - General Internal Medicine 10/27/18 Mackenzie Roland Wildlife Biologist 07/09/24 Angela Pozo Wildlife Biologist 07/09/24 [facility] 06/12/23 documented as of this encounter
--- OUTSIDE RECORDS SUMMARY | 2025-01-14 15:39 | XMS_ITS | Encounter Summary ---
Author Organization [employer] Address 75 [facility] 7t [place] [address] Care Team Providers Care Tire Maintenance Technician Name Role Phone Chato Thomason MD Primary Care Provider [phone] Encounter Details Date Type Department Care Team (Latest Contact Info) Description 01/13/2025 Travel Social History Tobacco Use Types Packs/Day Years Used Date Smoking Tobacco: Former Cigarettes 8 - 2022 Passive Smoke Exposure: Current [...] Info) Description 01/24/2025 9:00 AM EDT Telemedicine [facility] MEDICINE [address] [place] [address] 02/11/2025 10:00 AM EDT Office Visit [facility] ADULT DENTAL [address] [place] [address] Sal Gordon DDS [address] [place] [address] 2025 11:00 AM EDT Telemedicine [facility] MED & PEDS 505 [place] [address] Linda Pelaez RN 505 [place] [address] 04/19/2025 2:00 PM EDT Office Visit [facility] MED & PEDS 505 [place] [address] Chato Thomason MD 505 [place] [address] documented as of this encounter Visit Diagnoses Not on filedocumented in this encounter Additional Health Concerns Assessment Noted Time PHQ-9 Depression Total Score: 19 024 3:44 PM EDT documented as of this encounter Care Teams Tire Maintenance Technician Relationship Specialty Start Date End Date Chato Thomason MD 505 [place] [address] PCP - General Internal Medicine 10/27/18 Mackenzie Roland Processes Chemical Design Engineer 07/09/24 Angela Pozo Processes Chemical Design Engineer 07/09/24 [facility] 06/12/23 documented as of this encounter
--- OUTSIDE RECORDS SUMMARY | 2025-01-14 15:39 | XMS_ITS | Encounter Summary ---
Author Organization [employer] Address 75 [facility] 7 [place] [address] Care Team Providers Care Supervisor Paste Plant Name Role Phone Chato Thomason MD Primary Care Provider [phone] Reason for Visit * Reason Comments Care Coordination C/CM Chart Review Encounter Details Date Type Department Care Team (Latest Contact Info) Description 01/12/2025 Patient Outreach [facility] MEDICINE [address] [place] [address] Chato Thomason MD [address] [place] [address] Care Coordination (C/CM Chart Review) Social History Tobacco Use Types Packs/Day Years [...] Progress Notes * Josephine Block - 01/12/2025 11:20 AM EDT CM/C3 FELICE Block chart Review CASEW Josephine Block reviewed chart review completed by NYASIA Sheehan RN, performed chart review, in anticipation of initial assessment with patient, as patient has stratified for C3 Adult Complex Care through the ADT feed. History significant for hypertension, depression. Specialists include pain medicine, ophthalmology, podiatry. Pt has multiple ED visits. Patient admitted to [facility] on 01/11/2025 with no pending discharge. Last appointment in PCP office on 12/24/24. Next appointment scheduled for 01/19/25. documented in this encounter Plan of Treatment Upcoming Encounters Date Type Department Care Team (Late st Contact Info) Description 01/24/2025 9:00 AM EDT Telemedicine [facility] MEDICINE [address] [place] [address] 02/11/2025 10:00 AM EDT Office Visit [facility] ADULT DENTAL [address] [place] [address] Sal Gordon DDS [address] [place] [address] 2025 11:00 AM EDT Telemedicine [facility] MED & PEDS [address] [place] [address] Linda Pelaez RN 505 [place] [address] 04/19/2025 2:00 PM EDT Office Visit [facility] MED & PEDS [address] [place] [address] Chato Thomason MD 505 [place] [address] documented as of this encounter Visit Diagnoses Not on filedocumented in this encounter Additional Health Concerns Assessment Noted Time PHQ-9 Depression Total Score: 19 024 3:44 PM EDT documented as of this encounter Care Teams Supervisor Paste Plant Relationship Specialty Start Date End Date Chato Thomason MD 505 [place] [address] PCP - General Internal Medicine 10/27/18 Mackenzie Roland Terrazzo Layer 07/09/24 Angela Pozo Terrazzo Layer 07/09/24 [facility] 06/12/23 documented as of this encounter
--- OUTSIDE RECORDS SUMMARY | 2025-01-14 15:39 | XMS_ITS | Encounter Summary ---
Author Organization [employer] Address 75 [facility] 7t [place] [address] Care Team Providers Care Dramatic Art Teacher Name Role Phone Chato Thomason MD Primary Care Provider [phone] Encounter Details Date Type Department Care Team (Latest Contact Info) Description 01/10/2025 Travel Social History Tobacco Use Types Packs/Day [...] Info) Description 01/24/2025 9:00 AM EDT Telemedicine [facility] MEDICINE 230 [place] [address] 02/11/2025 10:00 AM EDT Office Visit [facility] ADULT DENTAL [address] [place] [address] Sal Gordon DDS [address] [place] [address] 2025 11:00 AM EDT Telemedicine [facility] MED & PEDS 505 [place] [address] Linda Pelaez RN 505 [place] [address] 04/19/2025 2:00 PM EDT Office Visit [facility] MED & PEDS [address] [place] [address] Chato Thomason MD 505 [place] [address] documented as of this encounter Visit Diagnoses Not on filedocumented in this encounter Additional Health Concerns Assessment Noted Time PHQ-9 Depression Total Score: 19 024 3:44 PM EDT documented as of this encounter Care Teams Dramatic Art Teacher Relationship Specialty Start Date End Date Chato Thomason MD [address] [place] [address] PCP - General Internal Medicine 10/27/18 Mackenzie Roland Heat Treating Furnace Tender 07/09/24 Angela Pozo Heat Treating Furnace Tender 07/09/24 [facility] 06/12/23 documented as of this encounter
--- OUTSIDE RECORDS SUMMARY | 2025-01-14 15:39 | XMS_ITS | Encounter Summary ---
Author Organization [employer] Address 75 [facility] 7 [place] [address] Care Team Providers Care Injection Molding Machine Operator Name Role Phone Chato Thomason MD Primary Care Provider [phone] Reason for Visit * Reason Onset Date Comments PT1 12/28/2024 Encounter Details Date Type Department Care Team ([facility] st Contact Info) Description 12/28/[address] [facility] MEDICINE [address] [place], [place] [phone] Chato Thomason MD 505 [place] [address] PT1 Social History Tobacco Use Types Packs/Day Years [...] encounter Miscellaneous Notes * Telephone Encounter - Lupe Lopez - 12/28/2024 8:03 AM EST Patient calling requesting PT1 Home Address verified: Y/N: Yes Provider name or facility name: [address] [place] [address] [place] [address] - Pain Management Escort needed: Y/N: Yes Do you have a wheelchair: Y/N: No If yes- Manual or electric: N/A Visits: (2x monthly) documented in this encounter Plan of Treatment Upcoming Encounters Date Type Department Care Team (Late st Contact Info) Description 01/24/2025 9:[address] [facility] MEDICINE [address] [place], [place] [phone] 02/11/2025 10:00 AM EDT Office Visit [facility] ADULT DENTAL [address] [place] [address] Sal Gordon DDS [address] [place] [address] 2025 11:00 AM EDT Telemedicine [facility] MED & PEDS [address] [place] [address] Linda Pelaez RN 505 [place] [address] 04/19/2025 2:00 PM EDT Office Visit [facility] MED & PEDS [address] [place] [address] Chato Thomason MD [address] [place] [address] documented as of this encounter Visit Diagnoses Not on filedocumented in this encounter Additional Health Concerns Assessment Noted Time PHQ-9 Depression Total Score: 19 024 3:44 PM EDT documented as of this encounter Care Teams Injection Molding Machine Operator Relationship Specialty Start Date End Date Chato Thomason MD [address] [place] [address] PCP - General Internal Medicine 10/27/18 Mackenzie Roland Respiratory Therapy Manager 07/09/24 Angela Pozo Respiratory Therapy Manager 07/09/24 [facility] 06/12/23 documented as of this encounter
--- OUTSIDE RECORDS SUMMARY | 2025-01-14 15:39 | XMS_ITS | Encounter Summary ---
Author Organization [employer] Address [address] [place] [address] 7t [place] [address] Care Team Providers Care Equipment Operator/Laborer/Supervisor Name Role Phone Chato Thomason MD Primary Care Provider [phone] Encounter Details Date Type Department Care Team ([facility] st Contact Info) Description 01/12/2025 Patient Outreach [facility] MED & PEDS [address] [place], [place] [phone] Chato Thomason MD [address] [place] [address] Social History Tobacco Use Types Packs/Day Years [...] as of this encounter Progress Notes * Alisha Sheehan RN - 01/12/2025 10:56 AM EDT NYASIA Sheehan RN, performed chart review, in anticipation of initial assessment with patient, as patient has stratified for C3 Adult Complex Care through the ADT feed. History significant for hypertension, depression. Specialists include pain medicine, ophthalmology, podiatry. Pt has multiple ED visits. Patient admitted to [facility] on 01/11/2025 with no pending discharge. Last appointment in PCP office on 12/24/24. Next appointment scheduled for 01/19/25. documented in this encounter Plan of Treatment Upcoming Encounters Date Type Department Care Team (Late st Contact Info) Description 01/24/2025 9:00 AM EDT Telemedicine [facility] MEDICINE 230 [place], [place] [phone] 02/11/2025 10:00 AM EDT Office Visit [facility] ADULT DENTAL [address] [place] [address] Sal Gordon DDS [address] [place] [address] 2025 11:00 AM EDT Telemedicine [facility] MED & PEDS [address] [place] [address] Linda Pelaez RN [address] [place] [address] 04/19/2025 2:00 PM EDT Office Visit [facility] MED & PEDS [address] [place] [address] Chato Thomason MD [address] [place] [address] documented as of this encounter Visit Diagnoses Not on filedocumented in this encounter Additional Health Concerns Assessment Noted Time PHQ-9 Depression Total Score: 19 024 3:44 PM EDT documented as of this encounter Care Teams Equipment Operator/Laborer/Supervisor Relationship Specialty Start Date End Date Chato Thomason MD [address] [place] [address] PCP - General Internal Medicine 10/27/18 Mackenzie Roland Fleet Sales Associate 07/09/24 Angela Pozo Fleet Sales Associate 07/09/24 [facility] 06/12/23 documented as of this encounter
--- OUTSIDE RECORDS SUMMARY | 2025-01-14 15:39 | XMS_ITS | Encounter Summary ---
Author Organization [employer] Address 75 [facility] 7 [place] [address] Care Team Providers Care Vacuum Furnace Operator Name Role Phone Chato Thomason MD Primary Care Provider [phone] Reason for Visit * Reason Onset Date Comments Med Refill 01/10/2025 Encounter Details Date Type Department Care Team ([facility] st Contact Info) Description 01/10/[address] [facility] MEDICINE [address] [place], [place] [phone] Chato Thomason MD 505 [place] [address] Med Refill Social History Tobacco Use Types Packs/Day Years [...] * Telephone Encounter - Reuben Edward - 01/10/2025 8:04 AM EDT TC from pt requesting medication refill. Medications needing refill : LORazepam (Ativan) 1 MG tablet oxyCODONE (Roxicodone) 15 MG immediate release tablet To be sent to: [facility] - [place], [place] - [address] [place] [address] documented in this encounter Plan of Treatment Upcoming Encounters Date Type Department Care Team (Late st Contact Info) Description 01/24/2025 9:[address] [facility] MEDICINE [address] [place] [address] 02/11/2025 10:00 AM EDT Office Visit [facility] ADULT DENTAL [address] [place] [address] Sal Gordon DDS [address] [place] [address] 2025 11:[address] [facility] CHC MED & PEDS [address] [place] [address] Linda Pelaez RN 505 [place] [address] 04/19/2025 2:00 PM EDT Office Visit [facility] CHC MED & PEDS 505 [place] [address] Chato Thomason MD 505 [place] [address] documented as of this encounter Visit Diagnoses Not on filedocumented in this encounter Additional Health Concerns Assessment Noted Time PHQ-9 Depression Total Score: 19 024 3:44 PM EDT documented as of this encounter Care Teams Vacuum Furnace Operator Relationship Specialty Start Date End Date Chato Thomason MD [address] [place] [address] PCP - General Internal Medicine 10/27/18 Mackenzie Roland Coal Passer 07/09/24 Angela Pozo Coal Passer 07/09/24 [facility] 06/12/23 documented as of this encounter
--- OUTSIDE RECORDS SUMMARY | 2025-01-14 15:39 | XMS_ITS | Encounter Summary ---
Author Organization [employer] Address [address] [facility] 7 [place] [address] Care Team Providers Care Sealing And Canceling Machine Operator Name Role Phone Chato Thomason MD Primary Care Provider [phone] Reason for Visit * Reason Onset Date Comments Med Refill 12/20/2024 Encounter Details Date Type Department Care Team ([facility] st Contact Info) Description 12/20/2024 Refill [facility] MEDICINE [address] [place] [address] Chato Thomason MD [address] [place] [address] Squamous cell carcinoma of larynx (CMS/HCC); Anxiety Social History Tobacco Use Types Packs/Day Years [...] * Telephone Encounter - Reuben Edward - 12/20/2024 8:14 AM EST TC from pt requesting medication refill. Medications needing refill : LORazepam (Ativan) 1 MG tablet oxyCODONE HCl 7.5 MG tablet To be sent to: [facility] - [place], [place] - [address] [place] [address] documented in this encounter Plan of Treatment Upcoming Encounters Date Type Department Care Team (Late st Contact Info) Description 01/24/2025 9:00 AM EDT Telemedicine [facility] MEDICINE [address] [place] [address] 02/11/2025 10:00 AM EDT Office Visit [facility] ADULT DENTAL [address] [place] [address] Sal Gordon DDS [address] [place] [address] 2025 11:00 AM EDT Telemedicine [facility] CH[facility] MED & PEDS [address] [facility] [place] [facility] [place] [address] Linda Pelaez RN 505 [place] [address] 04/19/2025 2:00 PM EDT Office Visit [facility] 505 [place] [address] Chato Thomason MD [address] [place] [address] documented as of this encounter Visit Diagnoses Diagnosis Squamous cell carcinoma of larynx (CMS/HCC) Malignant neoplasm of larynx, unspecified site Anxiety Anxiety state, unspecified documented in this encounter Additional Health Concerns Assessment Noted Time PHQ-9 Depression Total Score: 19 024 3:44 PM EDT documented as of this encounter Care Teams Sealing And Canceling Machine Operator Relationship Specialty Start Date End Date Chato Thomason MD [address] [place] [address] PCP - General Internal Medicine 10/27/18 Mackenzie Roland Statistical Reporting Analyst 07/09/24 Angela Pozo Statistical Reporting Analyst 07/09/24 [facility] 06/12/23 documented as of this encounter
--- OUTSIDE RECORDS SUMMARY | 2025-01-14 15:39 | XMS_ITS | Clinical Summary ---
Author Organization [address] [facility] Address [address] [place] [address] Phone Care Team Providers Care Second Crusher Name Role Phone Physician, No Pcp Primary Care Provider Unavaila ble Active Problems Problem Noted Date Diagnosed Date Lymphatic edema 09/30/2024 Encounters Date Type Department Care Team Description 01/11/2025 12:30 PM EDT Treatment [facility] [address] [place] [address] [phone] Bernadette Botelloamaria P, OTR/L Lymphedema of face (Primary Dx) 12/30/2024 1:00 PM EST Treatment [facility] [address] [place] [address] [phone] Gijtaco, Nilam P, OTR/L Lymphatic edema (Primary Dx) 12/21/2024 12:30 PM EST Treatment [facility] [address] [place] [address] [phone] Gijtaco Nilam P, OTR/L Lymphedema of face (Primary Dx) 12/15/2024 12:30 PM EST Treatment [facility] [address] [place] [address] [phone] Rosmery Nilam P, OTR/L Lymphedema of face (Primary Dx) 12/07/2024 1:30 PM EST Treatment [facility] [address] [place] [address] [phone] GijNilam espñaa P, OTR/L Lymphedema of face (Primary Dx) 12/01/2024 2:00 PM EST Treatment [facility] [address] [phone] Nilam Botello P, OTR/L Lymphedema of face (Primary Dx) 11/23/2024 2:30 PM EST Treatment [facility] [address] [phone] Nilam Botello P, OTR/L Lymphedema of face (Primary Dx) 11/17/2024 12:30 PM EST Treatment [facility] [address] [phone] Nilam Botello P, OTR/L Lymphedema of face (Primary Dx) 11/11/2024 2:30 PM EST Treatment [facility] [address] [phone] Nilam Botello P, OTR/L Lymphedema of face (Primary Dx); Lymphatic edema 11/09/2024 2:00 PM EST Treatment [facility] [address] [place] [address] [phone] Nilam Botello P, OTR/L Lymphedema of face (Primary Dx) 10/28/2024 1:00 PM EST Treatment [facility] [address] [phone] Nilam Botello P, OTR/L Lymphedema of face (Primary Dx) from Last 3 Months Social History Tobacco Use Types Packs/Day Years Used Date Smoking Tobacco: Never Assessed Sex and Gender Information Value Date Recorded Sex Assigned at Not on file Legal Sex Male 8:43 PM EST Gender Identity Not on file Sexual Orientation Not on file Plan of Treatment Upcoming Encounters Date Type Department Care Team (Late st Contact Info) Description 01/25/2025 12:30 PM EDT Treatment [facility] [address] [place] [address] [phone] Nilam Botello P, OTR/L Health Maintenance Due Date Last Done Comments COVID-19 Vaccine (#1) 1971 DTaP,Tdap,and Td Vaccines (1 - Tdap) 1985 Hepatitis B Vaccines (1 of 3 - 19+ 3-dose series) 1985 Pneumococcal Vaccine: 50+ Ye ars (1 of 2 - PCV) 1985 Pneumococcal Vaccine: Pediat rics (0 to 5 Years) and At-Risk Patients (6 to 64 Years) (1 of 2 - PCV) 1985 Zoster Vaccines (1 of 2) 1985 Colorectal Cancer Screening: Colonoscopy 11/21/2023 HIV Screening 11/21/2023 Hepatitis C Screening 11/21/2023 Lung Cancer Screening (Low D ose CT) 11/21/2023 Social Influencers of Health Screening 11/21/2023 Influenza Vaccine (#1) 2024 11/10/2023 Hypertension/CHF/CAD Annual BMP Blood Test 09/22/2024 Depression Screening 08/03/2025 08/03/2024 Cholesterol Screening (Lipid Panel) 12/19/2026 12/19/2021 HIB Vaccines Aged Out No longer [...] on patient's age to complete this topic MMR Vaccines Aged Out No longer eligi ble based on patient's age to complete this topic Meningococcal ACWY Vaccine Aged Out N o longer eligible based on patient's age to complete this topic Meningococcal B Vacine Aged Out No lo nger eligible based on patient's age to complete this topic RSV Immunization Patients Un misty 20 months Aged Out No longer eligible b ased on patient's age to complete this topic Varicella Vaccines Aged Out No longer eligible based on patient's age to complete this topic Goals Goal Patient Goal Type Associated Problems Recent Progress Patient-Stated? Author for the swelling to go away General Improving( 4:36 PM EST) Yes Nilam Botello, OTR/L lymph edema/ fibrosis General No change(12/30 6:12 PM EST) No Nilam Botello P, OTR/L Note: STG Patient will present with decreased fibrosis in submandibular area 10/11 decreased fibrosis LTG patient will present with decreased palpable / visible and measurable lymph edema in head/ neck 12/30 2024 patient presents with decreased visible and palpable lymph edema in neck however developed fibrosis. Lymph edema in his cheeks self management General Improving( 6:11 PM EST) No Nilam Botello P, OTR/L Note: STG ; patient will be able do demo HEP to increase lymph flow Patient will be able to demo self massage 10/11 progressing ; needs review for self massage 12/30 has been instructed in self massage LTG Patient will be independent in lymph edema management ( compression / self massage and HEP) and there will be no increase in symptoms when not seen by this therapist for at least 2 weeks 12/30 Patient presents with increased fibrosis / lymph edema in both cheeks Goal not met; ongoing improve posture General Improving( 6:13 PM EST) No Nilam Botello P, OTR/L Note: STG: Patient will be able to demo 3 exercises to improve neck extension and chin tuck 10/11 goal has been met; patient is able to demo 3 exercises LTG: Patient will present with increased posture and he will have active neck extension 2024 Patient is independent in HEP and demo increased neck extension of about 15 degrees Insurance MEDICAID - [place] Care Teams Second Crusher Relationship Specialty Start Date End Date Physician, No Pcp PCP - General 09/22/24
--- OUTSIDE RECORDS SUMMARY | 2025-01-14 15:39 | XMS_ITS | Encounter Summary ---
Author Organization [facility] [employer] Address [address] [place] [address] Care Team Providers Care Color Checker Roving Or Yarn Name Role Phone Chato Thomason MD Primary Care Provider [phone] Reason for Referral * Consultation (Routine) - Pending Review Specialty Diagnoses / Procedures Referred By Maryana singh Referred To Contact Occupational Therapy Diagnoses Chronic bronchitis, unspecified chronic bronchitis type (CMS/HCC) Squamous cell carcinoma of larynx (CMS/HCC) Neuropathic pain Chato Thomason MD [address] [place] [address] Phone: tel: fax: Referral ID Status Reason Start Date Expiration Date Visits Requested Visits Authorized [id number] Pending Review Specialty Services Required 01/13/2025 01/13/2026 1 1 Encounter Details Date Type Department Care Team ([facility] Contact Info) Description 01/13/2025 1:45 PM EDT Office Visit [facility] MED & PEDS [address] [place] [address] Chato Thomason MD [address] [place] [address] Chronic bronchitis, unspecified chronic bronchitis type (CMS/HCC) (Primary Dx); History of laryngectomy; Squamous cell carcinoma of larynx (CMS/HCC); Neuropathic pain Social History Tobacco Use Types Packs/Day Years [...] AM EDT documented as of this encounter Last Filed Vital Signs Vital Sign Reading Time Taken Comments Blood Pressure 113/63 01/13/2025 1:30 PM EDT Pulse 55 01/13/2025 1:30 PM EDT Temperature - - Respiratory Rate 01/13/2025 1:30 PM EDT Oxygen Saturation 92% 01/13/2025 1:30 PM EDT Inhaled Oxygen Concentration - - Weight 116 kg (256 lb) 01/13/2025 1:30 PM EDT Height 178.5 cm (5' 10.27 ) 01/13/2025 1:30 PM E DT Body Mass Index 36.45 01/13/2025 1:30 PM EDT documented in this encounter Progress Notes * Chato Thomason MD - 01/13/2025 1:45 PM EDT Subjective Patient ID: Lawrence Childers is a 59 y.o. adult who presents for No chief complaint on file.. HPI Patient is here for follow-up: 1) history of hypertension. Patient's mother has been checking his blood pressure at home regularlyand the readings are mostly at goal. He is compliant to his medication otherwise 2) he has received a hospital bed and a shower chair. Patient would like to get an occupational therapist to teach him how to properly use both his hospital bed and the shower chair. He is requestinga referral. 3) history of squamous cell carcinoma of the larynx. Patient pain is fairly controlled with the current regimen. He follows up at [facility]. His oncologist is requesting for the [facility] over the DME's that he needs. Patient is stable during the evaluation. He has no acute complaint today. He is using an electrical larynx to communicate Patient Active Problem List Diagnosis Simple chronic bronchitis (CMS/HCC) Chronic obstructive lung disease (CMS/HCC) Hypercholesterolemia Hypertension Osteoarthritis Preop examination Squamous cell carcinoma of larynx (CMS/HCC) History of laryngectomy Acute post-operative pain At risk for airway obstruction Class 2 obesity Dehiscence of wound Disease due to severe acute respiratory syndrome coronavirus 2 (SARS-CoV-2) Dysphagia Fistula GERD (gastroesophageal reflux disease) S/P percutaneous endoscopic gastrostomy (PEG) tube placement (CMS/HCC) Severe obesity (CMS/HCC) Severe episode of recurrent major depressive disorder, without psychotic features (CMS/HCC) Post-traumatic stress disorder, unspecified Lymphatic edema Long-term current use of opiate analgesic Current Outpatient Medications on File Prior to Visit Medication Sig Dispense Refill acetaminophen (Liquid Acetaminophen) 160 MG/5ML liquid Take 480 mg by mouth every 4 (four) hours. Advair Diskus 500-50 MCG/ACT aerosol powder INHALE 1 PUFF BY MOUTH TWICE DAILY 60 each 5 Dupilumab (Dupixent) 300 MG/2ML solution auto-injector Inject 300 mg under the skin every 14 (fourteen) days. 2 mL 3 Dupixent 300 MG/2ML solution prefilled syringe injection INJECT 1 PEN (300MG) ONCE EVERY OTHER WEEKFOR MAINTENANCE gabapentin (Neurontin) 250 MG/5ML solution 12.5 ml every 8 hours. Dose increased from 10 ml to 12.5ml 900 mL 11 hydrOXYzine HCl (Atarax) 50 MG tablet TAKE ONE TABLET THREE TIMES DAILY IN THE MORNING, AT NOON, AND AT BEDTIME NEEDED FOR ANXIETY 90 tablet 0 LORazepam (Ativan) 1 MG tablet Take 1 tablet (1 mg) by mouth every 12 (twelve) hours if needed for anxiety. 40 tablet 0 oxyCODONE (Roxicodone) 15 MG immediate release tablet Take 0.5 tablets (7.5 mg) by mouth every 6 (six) hours if needed (Every 6 hours PRN). 15 tablet 0 oxyCODONE HCl 7.5 MG tablet Take 1 tablet (7.5 mg) by mouth every 6 (six) hours if needed for severe pain. Do not crush or chew. 30 tablet 0 traZODone (Desyrel) 150 MG tablet Take 1 tablet (150 mg) by mouth at bedtime. 30 tablet 0 Ventolin HFA 108 (90 Base) MCG/ACT inhaler INHALE 2 PUFFS INTO THE LUNGS EVERY 4 HOURS 18 g 11 [DISCONTINUED] LORazepam (Ativan) 1 MG tablet Take 1 tablet (1 mg) by mouth every 12 (twelve) hoursif needed for anxiety. 40 tablet 0 [DISCONTINUED] oxyCODONE (Roxicodone) 15 MG immediate release tablet TAKE 1/2 TABLET EVERY 6 HOURS NEEDED FOR SEVERE PAIN 15 tablet 0 No current facility-administered medications on file prior to visit. Allergies Allergen Reactions Lisinopril Swelling Swelling of throat Review of Systems Constitutional: Negative for chills, diaphoresis and fatigue. Respiratory: Negative for cough, choking and shortness of breath. Cardiovascular: Negative for leg swelling. Gastrointestinal: Negative for anal bleeding and blood in stool. Objective BP 113/63 (BP Location: Left arm, Patient Position: Sitting, BP Cuff Size: Adult long) Pulse 55 Resp 19 Ht 5' 10.27 (1.785 m) Wt 256 lb (116 kg) SpO2 92% BMI 36.45 kg/m?? Physical Exam Constitutional: General: Lawrence is not in acute distress. Appearance: Lawrence is obese. Lawrence is not ill-appearing, toxic-appearing or diaphoretic. Cardiovascular: Rate and Rhythm: Normal rate. Pulmonary: Effort: Pulmonary effort is normal. Abdominal: Palpations: Abdomen is soft. Neurological: General: No focal deficit present. Mental Status: Lawrence is alert. Psychiatric: Mood and Affect: Mood normal. Assessment/Plan Diagnoses and all orders for this visit: Chronic bronchitis, unspecified chronic bronchitis type (CMS/HCC) Comments: Stable on the current medication Patient is to continue with the same Orders: - Referral to Occupational Therapy; Future History of laryngectomy Comments: All the requested DME's will be prescribed. Squamous cell carcinoma of larynx (CMS/HCC) Comments: Follow-up with oncology. Orders: - Referral to Occupational Therapy; Future Neuropathic pain Comments: The current regimen seems to be working We will not make any change today Orders: - Referral to Occupational Therapy; Future documented in this encounter Plan of Treatment Upcoming Encounters Date Type Department Care Team (Late st Contact Info) Description 01/24/2025 9:00 AM EDT Telemedicine [facility] MEDICINE [address] [place] [address] 02/11/2025 10:00 AM EDT Office Visit [facility] ADULT DENTAL [address] [place] [address] Sal Gordon DDS [address] [place] [address] 2025 11:00 AM EDT Telemedicine [facility] MED & PEDS [address] [place] [address] Linda Pelaez, WALT [address] [place] [address] 04/19/2025 2:00 PM EDT Office Visit [facility] P[facility] [address] [place] [address] Chato Thomason MD [address] [place] [address] Scheduled Referrals Name Type Priority Associated Diagnoses Orde r Schedule Referral to Occupational Therapy Outpatient Referral Routine Chronic bronchitis, unspecified chronic bronchitis type (CMS/HCC) Squamous cell carcinoma of larynx (CMS/HCC) Neuropathic pain Expected: 01/13/2025 (Approximate), Expires: 01/13/2026 documented as of this encounter Visit Diagnoses Diagnosis Chronic bronchitis, unspecified chronic bronchitis type (CMS/HCC)- Primary History of laryngectomy Other postprocedural status Squamous cell carcinoma of larynx (CMS/HCC) Malignant neoplasm of larynx, unspecified site Neuropathic pain documented in this encounter Additional Health Concerns Assessment Noted Time PHQ-9 Depression Total Score: 19 024 3:44 PM EDT documented as of this encounter Care Teams Color Checker Roving Or Yarn Relationship Specialty Start Date End Date Chato Thomason MD [address] [place] [address] PCP - General Internal Medicine 10/27/18 Mackenzie Roland Lap Regulator 07/09/24 Angela Pozo Lap Regulator 07/09/24 [facility] 06/12/23 documented as of this encounter
--- OUTSIDE RECORDS SUMMARY | 2025-01-14 15:40 | XMS_ITS | Encounter Summary ---
Author Organization [employer] Address [address] [facility] 7t [place] [address] Care Team Providers Care Refractory Furnace Designer Name Role Phone Chato Thomason MD Primary Care Provider [phone] Kelsey Minaya Unavailable Unavailable Encounter Details Date Type Department Care Team (Late st Contact Info) Description 03/01/2024 Orders Only [facility] MED & PEDS [address] [place], [place] [phone] ProviderColleen MD Social History Tobacco Use Types Packs/Day Years Used Date Smoking Tobacco: Former Cigarettes 1 - 2022 Passive Smoke Exposure: Current Smokeless Tobacco: Former Comments:Has quit smoking co mpletely 6 months ago. Housing Stability Answer Date Recorded What is [...] from getting things needed for daily living? No 08/11/2023 Utilities Answer Date Recorded In the past 12 months, has t he electric, gas, oil or water company threatened to shut off services in your home? No 08/11/2023 Sex and Gender Information Value Date Recorded [...] Info) Description 01/24/2025 9:00 AM EDT Telemedicine [facility] MEDICINE [address] [place] [address] 02/11/2025 10:00 AM EDT Office Visit [facility] ADULT DENTAL [address] [place] [address] Sal Gordon DDS [address] [place] [address] 2025 11:00 AM EDT Telemedicine [facility] MED & PEDS [address] [place] [address] Linda Pelaez RN [address] [place] [address] 04/19/2025 2:00 PM EDT Office Visit [facility] MED & PEDS [address] [place] [address] Chato Thomason MD [address] [place] [address] documented as of this encounter Procedures Procedure Name Priority Date/Time Associated Diagnosis Comments CT SOFT TISSUE NECK W CONTRAST Routine 02/27/2024 10:01 AM EDT documented in this encounter Results * CT Soft Tissue Neck w/ Contrast (02/27/2024 10:01 AM EDT) Anatomical Region Laterality Modality Head, Neck Computed Tomogra phy us Historical Provider MD JEAN CT PROCEDURES Final R esult documented in this encounter Visit Diagnoses Not on filedocumented in this encounter Care Teams Refractory Furnace Designer Relationship Specialty Start Date End Date Chato Thomason MD [address] [place] [address] PCP - General Internal Medicine 10/27/18 Kelsey Minaya Community Health Worker 06/08/24 07/07/24 Eliane Metzger Carrier WasherDrywall Hanger Helper 01/29/24 07/08/24 Mackenzie Roland Carrier Washer 07/09/24 Angela Pozo Carrier Washer 07/09/24 [facility] 06/12/23 documented as of this encounter
--- OUTSIDE RECORDS SUMMARY | 2025-01-14 15:40 | XMS_ITS | Encounter Summary ---
Author Organization [facility] [employer] Address [address] [place] [id number] Care Team Providers Care Air Traffic Coordinator Name Role Phone Chato Thomason MD Primary Care Provider [phone] Reason for Referral * Consultation (Routine) - Closed Specialty Diagnoses / Procedures Referred By Maryana singh Referred To Contact Ophthalmology Diagnoses Primary hypertension Chato Thomason MD [address] [place] [address] Phone: tel: fax: [facility] [place] [address] [place] [address] Phone: tel:[phone] fax: Referral ID Status Reason Start Date Expiration Date V isits Requested Visits Authorized [id number] Closed Specialty Services Required 10/01/2024 10/01/2025 1 1 * Consultation (Urgent) - Authorized Specialty Diagnoses / Procedures Referred By Maryana singh Referred To Contact Pharmacy Diagnoses Spongiotic dermatitis Chronic bronchitis, unspecified chronic bronchitis type (CMS/HCC) Hypercholesterolemia Primary hypertension Chato Thomason MD [address] [place] [address] Phone: tel: fax: Referral ID Status Reason Start Date Expiration Date Visits Requested Visits Authorized [id number] Authorized Continuity of Care 10/01/2024 10/01/2025 6 6 Encounter Details Date Type Department Care Team (Late st Contact Info) Description 10/01/2024 Orders Only [facility] MED & PEDS [address] [place] [address] Chato Thomason MD [address] [place] [address] Spongiotic dermatitis (Primary Dx); Chronic bronchitis, unspecified chronic bronchitis type (CMS/HCC); Hypercholesterolemia; Primary hypertension Social History Tobacco Use Types Packs/Day Years Used Date Smoking Tobacco: Former Cigarettes 2022 Passive Smoke Exposure: Current Smokeless Tobacco: Former Comments:Has quit smoking co mpletely 6 months ago. Depression Answer Date Recorded Patient Health Questionnaire-9 [...] Upcoming Encounters Date Type Department Care Team ([facility] st Contact Info) Description 01/24/2025 9:00 AM EDT Telemedicine [facility] MEDICINE [address] [place] [address] 02/11/2025 10:00 AM EDT Office Visit [facility] ADULT DENTAL [address] [place] [address] EvanSal, DDS [address] [place] [address] 2025 11:00 AM EDT Telemedicine [facility] MED & PEDS [address] [place] [address] Linda Pelaez RN [address] [place] [address] 04/19/2025 2:00 PM EDT Office Visit [facility] MED & PEDS [address] [place] [address] Chato Thomason MD [address] [place] [address] Scheduled Referrals Name Type Priority Associated Diagnoses Orde r Schedule Referral to Pharmacy MTM Outpatient Referral Urgent Spongiotic dermatitis Chronic bronchitis, unspecified chronic bronchitis type (CMS/HCC) Hypercholesterolemia Primary hypertension Ordered: 10/01/2024 documented as of this encounter Procedures Procedure Name Priority Date/Time Associated Diagnosis Comments AMB REFERRAL TO OPHTHALMOLOGY Routine 10/22/2024 Primary hypertension documented in this encounter Results * Referral to Ophthalmology (10/22/2024) Chato Thomason MD OUTPATIENT REFERRAL ORDERAB LES Final Result documented in this encounter Visit Diagnoses Diagnosis Spongiotic dermatitis- Primary Contact dermatitis and other eczema, due to unspecified cause Chronic bronchitis, unspecified chronic bronchitis type (CMS/HCC) Hypercholesterolemia Pure hypercholesterolemia Primary hypertension Unspecified essential hypertension documented in this encounter Additional Health Concerns Assessment Noted Time PHQ-9 Depression Total Score: 19 024 3:44 PM EDT documented as of this encounter Care Teams Air Traffic Coordinator Relationship Specialty Start Date End Date Chato Thomason MD [address] [place] [address] PCP - General Internal Medicine 10/27/18 Mackenzie Roland [employer] Sprayer 07/09/24 Angela Pozo [employer] Sprayer 07/09/24 [facility] 06/12/23 documented as of this encounter
--- OUTSIDE RECORDS SUMMARY | 2025-01-14 15:40 | XMS_ITS | Encounter Summary ---
Author Organization [employer] Address 75 [facility] 7t [place] [address] Care Team Providers Care Dairy Farmworker Name Role Phone Chato Thomason MD Primary Care Provider [phone] Kelsey Minaya Unavailable Unavailable Encounter Details Date Type Department Care Team (Late st Contact Info) Description 03/19/2024 Orders Only [facility] CHC MED & PEDS [address] [place], [place] [phone] ProviderColleen MD Social History Tobacco Use Types Packs/Day Years Used Date Smoking Tobacco: Former Cigarettes - 2022 Passive Smoke Exposure: Current Smokeless Tobacco: Former Comments:Has quit smoking co mpletely 6 months ago. Housing Stability Answer Date Recorded What is your housing situation today? I have edson fontaien 08/11/[address] you li [...] Info) Description 01/24/2025 9:00 AM EDT Telemedicine [facility] MEDICINE [address] [place] [address] 02/11/2025 10:00 AM EDT Office Visit [facility] ADULT DENTAL [address] [place] [address] Sal Gordon DDS [address] [place] [address] 2025 11:00 AM EDT Telemedicine [facility] MED & PEDS 505 [place] [address] Linda Pelaez RN 505 [place] [address] 04/19/2025 2:00 PM EDT Office Visit [facility] MED & PEDS 505 [place] [address] Chato Thomason MD 505 [place] [address] documented as of this encounter Procedures Procedure Name Priority Date/Time Associated Diagnosis Comments SURGICAL PATHOLOGY Routine 03/15/2024 9:13 AM EDT documented in this encounter Results * Surgical Pathology (03/15/2024 9:13 AM EDT) us Historical Provider LAB PATHOLOGY ORDERABLES Final Result documented in this encounter Visit Diagnoses Not on filedocumented in this encounter Care Teams Dairy Farmworker Relationship Specialty Start Date End Date Chato Thomason MD 505 [place] [address] PCP - General Internal Medicine 10/27/18 Kelsey Minaya Community Health Worker 06/08/24 07/07/24 Eliane Metzger Platform InspectorConsulting Actuary 01/29/24 07/08/24 Mackenzie [place] Platform Inspector 07/09/24 Angela Pozo Platform Inspector 07/09/24 [facility] 06/12/23 documented as of this encounter
--- OUTSIDE RECORDS SUMMARY | 2025-01-14 15:40 | XMS_ITS | Encounter Summary ---
Author Organization [employer] Address 75 [facility] 7t [place] [address] Care Team Providers Care Supervisor [employer]age Shop Name Role Phone Chato Thomason MD Primary Care Provider [phone] Kelsey Minaya Unavailable Unavailable Reason for Visit * Reason Onset Date Comments Call Back Request 05/03/2024 Encounter Details Date Type Department Care Team ([facility] st Contact Info) Description 05/03/2024 Telephone [facility] MEDICINE [address] [place] [address] Chato Thomason MD 505 [place] [address] Call Back Request Social History Tobacco Use Types Packs/Day Years [...] encounter Miscellaneous Notes * Telephone Encounter - Familia Preston - 05/03/2024 4:37 PM EDT Tc from Joyce with [facility] requesting call back to discuss new referral. Joyce stated carecoordination attempted to contact pt but he wasn't able to answer due to pt not being able to speak. Please contact Joyce at [phone]. documented in this encounter Plan of Treatment Upcoming Encounters Date Type Department Care Team (Late st Contact Info) Description 01/24/2025 9:00 AM EDT Telemedicine [facility] MEDICINE [address] [place] [address] 02/11/2025 10:00 AM EDT Office Visit [facility] ADULT DENTAL [address] [place] [address] Sal Gordon DDS [address] [place] [address] 2025 11:00 AM EDT Telemedicine [facility] MED & PEDS [address] [place] [address] Linda Pelaez, WALT 505 [place] [address] 04/19/2025 2:00 PM EDT Office Visit [facility] MED & PEDS [address] [place] [address] Chato Thomason MD 505 [place] [address] documented as of this encounter Visit Diagnoses Not on filedocumented in this encounter Care Teams Supervisor [employer] Relationship Specialty Start Date End Date Chato Thomason MD [address] [place] [address] PCP - General Internal Medicine 10/27/18 Kelsey Minaya Community Health Worker 06/08/24 07/07/24 Eliane Metzger Box FeederOffset Printer 01/29/24 07/08/24 Mackenzie [place] Box Feeder 07/09/24 Angela Pozo Box Feeder 07/09/24 [facility] 06/12/23 documented as of this encounter
--- OUTSIDE RECORDS SUMMARY | 2025-01-14 15:40 | XMS_ITS | Encounter Summary ---
Author Organization [employer] Address 75 [facility] 7t [place] [address] Care Team Providers Care Funeral Location Manager Name Role Phone Chato Thomason MD Primary Care Provider [phone] Kelsey Minaya Unavailable Unavailable Encounter Details Date Type Department Care Team (Late st Contact Info) Description 02/26/2024 Orders Only [facility] [address] [place] [address] ProviderColleen MD Social History Tobacco Use Types [...] 01/24/2025 9:00 AM EDT Telemedicine [facility] MEDICINE 230 [place] [address] 02/11/2025 10:00 AM EDT Office Visit [facility] ADULT DENTAL [address] [place] [address] Sal Gordon DDS [address] [place] [address] 2025 11:00 AM EDT Telemedicine [facility] MED & PEDS [address] [place] [address] Linda Pelaez RN 505 [place] [address] 04/19/2025 2:00 PM EDT Office Visit [facility] MED & PEDS [address] [place] [address] Chato Thomason MD 505 [place] [address] documented as of this encounter Procedures Procedure Name Priority Date/Time Associated Diagnosis Comments PATHOLOGY REPORT (HISTOPATHOLOGY) Routine 02/24/2024 3:36 PM EDT documented in this encounter Results * Pathology Report (02/24/2024 3:36 PM EDT) Tissue Historical Provider LAB PATHOLOGY ORDERABLES Final Result documented in this encounter Visit Diagnoses Not on filedocumented in this encounter Care Teams Funeral Location Manager Relationship Specialty Start Date End Date Chato Thomason MD [address] [place] [address] PCP - General Internal Medicine 1/1/19 Kelsey Minaya Community Health Worker 06/08/24 07/07/24 Eliane Metzger Journeyman ElectricianAgricultural Equipment Operator 01/29/24 07/08/24 Mackenzie [place] Journeyman Electrician 07/09/24 Angela Pozo Journeyman Electrician 07/09/24 [facility] 06/12/23 documented as of this encounter
--- OUTSIDE RECORDS SUMMARY | 2025-01-14 15:40 | XMS_ITS | Encounter Summary ---
Author Organization [employer] Address [address] [place] [address] Care Team Providers Care Mat Tester Name Role Phone Chato Thomason MD Primary Care Provider [phone] Kelsey Minaya Unavailable Unavailable Reason for Referral * Consultation (Routine) - Denied Specialty Diagnoses / Procedures Referred By Contac t Referred To Contact Diagnoses Squamous cell carcinoma of larynx (CMS/HCC) Chato Thomason MD [address] [place] [address] Phone: tel: fax: [address] [phone] Phone: tel: fax: Referral ID Status Reason Start Date Expiration Date V isits Requested Visits Authorized [id number] Denied Specialty Services Required 05/04/2024 05/04/2025 1 0 Encounter Details Date Type Department Care Team (Late st Contact Info) Description 05/04/2024 Orders Only [facility] CHC MED & PEDS [address] [place], [place] [phone] Chato Thomason MD [address] [place] [phone] Squamous cell carcinoma of larynx (CMS/HCC) (Primary Dx); Other insomnia Social History Tobacco Use Types Packs/Day Years Used Date Smoking Tobacco: Former Cigarettes 1 25 1 - 2022 Passive Smoke Exposure: Current [...] Info) Description 01/24/2025 9:00 AM EDT Telemedicine [facility] MEDICINE [address] [place] [address] 02/11/2025 10:00 AM EDT Office Visit [facility] ADULT DENTAL [address] [place] [address] Sal Gordon DDS [address] [place] [address] 2025 11:00 AM EDT Telemedicine [facility] CHC MED & PEDS [address] [place] [address] Linda Pelaez, RN 505 [place] [address] 04/19/2025 2:00 PM EDT Office Visit [facility] MED & PEDS 505 [place] [address] Chato Thomason MD 505 [place] [address] Scheduled Referrals Name Type Priority Associated Diagnoses Order Schedule Referral to Care Management Outpatient Referral Routine Squamous cell carcinoma of larynx (CMS/HCC) Expected: 05/04/2024 (Approximate), Expires: 05/04/2025 documented as of this encounter Visit Diagnoses Diagnosis 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, unspecified site Other insomnia documented in this encounter Care Teams Mat Tester Relationship Specialty Start Date End Date Chato Thomason MD 505 [place] [address] PCP - General Internal Medicine 10/27/18 Kelsey Minaya Community Health Worker 06/08/24 07/07/24 Eliane Metzger Small Business ConsultantChemical Plant Worker 01/29/24 07/08/24 Mackenzie Roalnd Small Business Consultant 07/09/24 Angela Pozo Small Business Consultant 07/09/24 [facility] 06/12/23 documented as of this encounter
--- OUTSIDE RECORDS SUMMARY | 2025-01-14 15:40 | XMS_ITS | Encounter Summary ---
Author Organization [employer] Address [address] [place] [address] [address] Care Team Providers Care Computer Education Professor Name Role Phone Chato Thomason MD Primary Care Provider [phone] Kelsey Minaya Unavailable Unavailable Reason for Referral * Consultation (Routine) - Closed Specialty Diagnoses / Procedures Referred By Maryana singh Referred To Contact Podiatry Diagnoses Nail problem Chato Thomason MD [address] [place] [address] Phone: tel: fax: Referral ID Status Reason Start Date Expiration Date V isits Requested Visits Authorized [id number] Closed Specialty Services Required 06/11/2024 06/11/2025 1 1 Encounter Details Date Type Department Care Team ([facility] st Contact Info) Description 06/11/2024 Orders Only [facility] CHC MED & PEDS [address] [place] [address] Chato Thomason MD [address] [place] [address] Nail problem (Primary Dx); Anxiety Social History Tobacco Use Types Packs/Day [...] 01/24/2025 9:00 AM EDT Telemedicine [facility] MEDICINE [address] [place] [address] 02/11/2025 10:00 AM EDT Office Visit [facility] ADULT DENTAL [address] [place] [address] Sal Gordon DDS [address] [place] [address] 2025 11:00 AM EDT Telemedicine [facility] MED & PEDS [address] [place] [address] Linda Pelaez RN 505 [place] [address] 04/19/2025 2:00 PM EDT Office Visit [facility] MED & PEDS [address] [place] [address] Chato Thomason MD 505 [place] [address] Scheduled Referrals Name Type Priority Associated Diagnoses Orde r Schedule Referral to Podiatry Outpatient Referral Routine Nail problem Expected: 06/11/2024 (Approximate), Expires: 06/11/2025 documented as of this encounter Visit Diagnoses Diagnosis Nail problem- Primary Other specified disease of nail Anxiety Anxiety state, unspecified documented in this encounter Care Teams Computer Education Professor Relationship Specialty Start Date End Date Chato Thomason MD [address] [place], [place] [address] [address] PCP - General Internal Medicine 10/27/18 Kelsey Minaya Community Health Worker 06/08/24 07/07/24 Eliane Metzger Mica Machine OperatorNeuro Ophthalmologist 01/29/24 07/08/24 Mackenzie [place] Mica Machine Operator 07/09/24 Angela Pozo Mica Machine Operator 07/09/24 [facility] 06/12/23 documented as of this encounter
--- OUTSIDE RECORDS SUMMARY | 2025-01-14 15:40 | XMS_ITS | Encounter Summary ---
Author Organization [employer] Address [address] [place] [address] Care Team Providers Care Tower Crane Operator Name Role Phone Chato Thomason MD Primary Care Provider [phone] Kelsey Minaya Unavailable Unavailable Reason for Referral * Consultation (Routine) - Closed Specialty Diagnoses / Procedures Referred By Maryana singh Referred To Contact Occupational Therapy Diagnoses Lymphedema Chato Thomason MD [address] [place] [address] Phone: tel: fax: [facility] [address] [place] [address] Phone: tel: fax: Referral ID Status Reason Start Date Expiration Date V isits Requested Visits Authorized [id number] Closed Specialty Services Required 07/16/2024 07/16/2025 1 1 Encounter Details Date Type Department Care Team (Late st Contact Info) Description 07/07/2024 Orders Only [facility] CHC MED & PEDS [address] [place] [address] Chato Thomason MD [address] [place] [address] Anxiety (Primary Dx); Lymphedema Social History Tobacco Use Types Packs/Day Years [...] off services in your home? No 08/11/2023 Internet Access Answer Date Recorded Internet Access [...] Info) Description 01/24/2025 9:00 AM EDT Telemedicine [facility] MEDICINE [address] [place] [address] 02/11/2025 10:00 AM EDT Office Visit [facility] ADULT DENTAL [address] [place] [address] Sal Gordon DDS [address] [place] [address] 2025 11:00 AM EDT Telemedicine [facility] CHC MED & PEDS [address] [place] [address] Linda Pelaez, RN 505 [place] [address] 04/19/2025 2:00 PM EDT Office Visit [facility] CHC MED & PEDS [address] [place] [address] Chato Thomason MD [address] [place] [address] Scheduled Referrals Name Type Priority Associated Diagnoses Order Schedule Referral to Occupational Therapy Outpatient Referral Routine Lymphedema Expected: 07/16/2024 (Approximate), Expires: 07/16/2025 documented as of this encounter Visit Diagnoses Diagnosis Anxiety- Primary Anxiety state, unspecified Lymphedema Other noninfectious lymphedema documented in this encounter Care Teams Tower Crane Operator Relationship Specialty Start Date End Date Chato Thomason MD [address] [place] [address] PCP - General Internal Medicine 10/27/18 Kelsey Minaya Community Health Worker 06/08/24 07/07/24 Eliane Metzger Epic Willow AnalystPersonal Banker 01/29/24 07/08/24 Mackenzie [place] Epic Willow Analyst 07/09/24 Angela Pozo Epic Willow Analyst 07/09/24 [facility] 06/12/23 documented as of this encounter
--- OUTSIDE RECORDS SUMMARY | 2025-01-14 15:40 | XMS_ITS | Encounter Summary ---
Author Organization [employer] Address 75 [facility] 7 [place] [address] Care Team Providers Care Institutional Cook Name Role Phone Chato Thomason MD Primary Care Provider [phone] Kelsey Minaya Unavailable Unavailable Reason for Visit * Reason Onset Date Comments PT1 06/07/2024 Encounter Details Date Type Department Care Team ([facility] st Contact Info) Description 06/07/2024 Telephone [facility] CHC MED & PEDS [address] [place], [place] [phone] Chato Thomason MD 505 [place] [address] PT1 Social History Tobacco Use Types Packs/Day [...] encounter Miscellaneous Notes * Telephone Encounter - Sadie Jeter - 06/07/2024 1:23 PM EDT Patient mom calling requesting PT1 Home Address verified: Y/N: Yes Provider name or facility name: [facility] Facility Address: [address] [place] [address] Escort needed: Y/N: Yes Do you have a wheelchair: Y/N: No If yes- Manual or electric: n/a Visits: 1 x week documented in this encounter Plan of Treatment Upcoming Encounters Date Type Department Care Team (Late st Contact Info) Description 01/24/2025 9:00 AM EDT Telemedicine [facility] MEDICINE [address] [place] [address] 02/11/2025 10:00 AM EDT Office Visit [facility] ADULT DENTAL [address] [place] [address] Sal Gordon DDS [address] [place] [address] 2025 11:00 AM EDT Telemedicine [facility] MED & PEDS [address] [place] [address] Linda Pelaez RN 505 [place] [address] 04/19/2025 2:00 PM EDT Office Visit [facility] MED & PEDS [address] [place] [address] Chato Thomason MD [address] [place] [address] documented as of this encounter Visit Diagnoses Not on filedocumented in this encounter Care Teams Institutional Cook Relationship Specialty Start Date End Date Chato Thomason MD [address] [place] [address] PCP - General Internal Medicine 10/27/18 Kelsey Minaya Community Health Worker 06/08/24 07/07/24 Eliane Metzger Hand Woodworking SanderBladder Cleaner 01/29/24 07/08/24 Mackenzie [place] Hand Woodworking Sander 07/09/24 Angela Pozo Hand Woodworking Sander 07/09/24 [facility] 06/12/23 documented as of this encounter
--- OUTSIDE RECORDS SUMMARY | 2025-01-14 15:40 | XMS_ITS | Encounter Summary ---
Author Organization [employer] Address 75 [facility] 7t [place] [address] Care Team Providers Care Shop Coordinator Name Role Phone Chato Thomason MD Primary Care Provider [phone] Kelsey Minaya Unavailable Unavailable Reason for Visit * Reason Onset Date Comments Hospital Follow-up 07/05/2024 Encounter Details Date Type Department Care Team ([facility] st Contact Info) Description 07/05/2024 Telephone [facility] MEDICINE [address] [place] [address] Chato Thomason MD [address] [place], [place] [phone] Hospital Follow-up Social History Tobacco Use Types Packs/Day Years [...] EDT Gender Identity Choose not to disclose 2 10:19 AM EDT Sexual Orientation Choose not to disclose 2021 10:19 AM EDT documented as of this encounter Miscellaneous Notes * Telephone Encounter - Nusrat Root RN - 07/19/2024 1:52 PM EDT Placed call to VN Bo regarding message from PCP. Bo was given direct number to communicate onFriday's on pt condition. Bo advised on confidential VM can be left if I am not available. Boagrees with plan. * Telephone Encounter - Nusrat Root RN - 07/19/2024 1:52 PM EDT ----- Message from Chato Thomason MD sent at 07/16/2024 11:46 AM EDT ----- Bo pt's VNA was called to get his input on the current home situation of Mr Childers. 1) Mr Lawrence Childers has a trach that he suction himself. 2) Home and personal hygiene are fair as per bo. We will try to get more communication from Bo in an attempt to decrease his Frequent trips to the ED. His personal phone number is [phone]. We agreed to have him contact one of our team nurseif he has a concern about Mr Lawrence Childers and to update us at [facility] regularly on Friday on what Mr Lawrence Childers needs are. Bo does think that Mr Lawrecne Childres would be better taken care of at a [place] given the level of care he needs. * Telephone Encounter - Art Pena - 07/06/2024 12:12 PM EDT Tc from cayla with [facility] would like to PCP that they called crisis due to having suicidal ideation. Advised will leave message asd FYI. Please see previous message. Please contact at [phone] * Telephone Encounter - Ronaldo Larios - 07/05/2024 8:03 AM EDT Tc from pt requesting a HDF appt. 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 and is not able to come in physically it would need to be a Tele appt documented in this encounter Plan of Treatment Upcoming Encounters Date Type Department Care Team (Late st Contact Info) Description 01/24/2025 9:00 AM EDT Telemedicine [facility] MEDICINE [address] [place] [address] 02/11/2025 10:00 AM EDT Office Visit [facility] ADULT DENTAL [address] [place] [address] Sal Gordon DDS [address] [place] [address] 2025 11:00 AM EDT Telemedicine [facility] MED & PEDS [address] [place] [address] Linda Pelaez, RN [address] [place] [address] 04/19/2025 2:00 PM EDT Office Visit [facility] MED & PEDS [address] [place] [address] Chato Thomason MD [address] [place] [address] documented as of this encounter Visit Diagnoses Not on filedocumented in this encounter Care Teams Shop Coordinator Relationship Specialty Start Date End Date Chato Thomason MD [address] [place] [address] PCP - General Internal Medicine 10/27/18 Kelsey Minaya Community Health Worker 06/08/24 07/07/24 Eliane Metzger Core InspectorKindergarten Assistant 01/29/24 07/08/24 Cayla [place] Core Inspector 07/09/24 Angela Pozo Core Inspector 07/09/24 [facility] 06/12/23 documented as of this encounter
--- OUTSIDE RECORDS SUMMARY | 2025-01-14 15:40 | XMS_ITS | Encounter Summary ---
Author Organization [employer] Address 75 [facility] 7t [place] [address] Care Team Providers Care Guillotine Operator Name Role Phone Chato Thomason MD Primary Care Provider [phone] Kelsey Minaya Unavailable Unavailable Encounter Details Date Type Department Care Team (Late st Contact Info) Description 03/30/2024 Orders Only [facility] CHC MED & PEDS [address] [place], [place] [phone] ProviderColleen MD Social History Tobacco Use Types [...] 01/24/2025 9:00 AM EDT Telemedicine [facility] MEDICINE [address] [place] [address] 02/11/2025 10:00 AM EDT Office Visit [facility] ADULT DENTAL [address] [place] [address] Sal Gordon DDS [address] [place] [address] 2025 11:00 AM EDT Telemedicine [facility] MED & PEDS [address] [place] [address] Linda Pelaez RN 505 [place] [address] 04/19/2025 2:00 PM EDT Office Visit [facility] MED & PEDS [address] [place] [address] Chato Thomason MD [address] [place] [address] documented as of this encounter Procedures Procedure Name Priority Date/Time Associated Diagnosis Comments SURGICAL PATHOLOGY Routine 03/25/2024 8:43 AM EDT documented in this encounter Results * Surgical Pathology (03/25/2024 8:43 AM EDT) us Historical Provider LAB PATHOLOGY ORDERABLES Final Result documented in this encounter Visit Diagnoses Not on filedocumented in this encounter Care Teams Guillotine Operator Relationship Specialty Start Date End Date Chato Thomason MD [address] [place] [address] PCP - General Internal Medicine 10/27/18 Kelsey Minaya Community Health Worker 06/08/24 07/07/24 Eliane Metzger Beef TrimmerDigital Media Manager 01/29/24 07/08/24 Mackenzie [place] Beef Trimmer 07/09/24 Angela Pozo Beef Trimmer 07/09/24 [facility] 06/12/23 documented as of this encounter
--- OUTSIDE RECORDS SUMMARY | 2025-01-14 15:40 | XMS_ITS | Encounter Summary ---
Author Organization [employer] Address [address] [facility] 7t [place] [address] Care Team Providers Care Client Development Director Name Role Phone Chato Thomason MD Primary Care Provider [phone] Kelsey Minaya Unavailable Unavailable Encounter Details Date Type Department Care Team (Late st Contact Info) Description 06/25/2024 Orders Only [facility] MED & PEDS [address] [place], [place] [id number] ProviderColleen MD Social History Tobacco Use Types [...] Info) Description 01/24/2025 9:00 AM EDT Telemedicine [facility] MEDICINE [address] [place] [address] 02/11/2025 10:00 AM EDT Office Visit [facility] ADULT DENTAL [address] [place] [address] Sal Gordon DDS 230 [place] [address] 2025 11:00 AM EDT Telemedicine [facility] MED & PEDS 505 [place] [address] Linda Pelaez, RN 505 [place] [address] 04/19/2025 2:00 PM EDT Office Visit [facility] MED & PEDS 505 [place] [address] Chato Thomason MD 505 [place] [address] documented as of this encounter Procedures Procedure Name Priority Date/Time Associated Diagnosis Comments FL MODIFIED BARIUM SWALLOW W/ SPEECH Routine 06/24/2024 8:31 AM EDT documented in this encounter Results * Modified Barium Swallow W/ Speech (06/24/2024 8:31 AM EDT) Anatomical Region Laterality Modality Head, Neck Radiographic Saundra ging us Historical Provider MD JEAN FLUOROSCOPY PROCEDURE S Final Result documented in this encounter Visit Diagnoses Not on filedocumented in this encounter Care Teams Client Development Director Relationship Specialty Start Date End Date Chato Thomason MD [address] [place] [address] PCP - General Internal Medicine 10/27/18 Kelsey Minaya Community Health Worker 06/08/24 07/07/24 Eliane Metzger Carbide Tool MakerCar Icer 01/29/24 07/08/24 Mackenzie Roland Carbide Tool Maker 07/09/24 Angela Pozo Carbide Tool Maker 07/09/24 [facility] 06/12/23 documented as of this encounter
--- OUTSIDE RECORDS SUMMARY | 2025-01-14 15:40 | XMS_ITS | Encounter Summary ---
Author Organization [employer] Address [address] [facility] 7t [place] [address] Care Team Providers Care Fruit Buying Grader Name Role Phone Chato Thomason MD Primary Care Provider [phone] Kelsey Minaya Unavailable Unavailable Reason for Visit * Reason Onset Date Comments PT-1 05/14/2024 Encounter Details Date Type Department Care Team ([facility] st Contact Info) Description 05/14/2024 Telephone [facility] MEDICINE 230 [place] [address] Chato Thomason MD 505 [place] [address] PT-1 Social History Tobacco Use Types Packs/Day Years [...] encounter Miscellaneous Notes * Telephone Encounter - Ronaldo Larios - 05/14/2024 2:06 PM EDT Patient calling requesting PT1 Home Address verified: Y/N: Yes Provider name or facility name: [facility] Facility Address: [address] [place] [address] Escort needed: Y/N: Yes Do you have a wheelchair: Y/N: No If yes- Manual or electric: no Visits: 6 documented in this encounter Plan of Treatment Upcoming Encounters Date Type Department Care Team (Late st Contact Info) Description 01/24/2025 9:00 AM EDT Telemedicine [facility] MEDICINE [address] [place] [address] 02/11/2025 10:00 AM EDT Office Visit [facility] ADULT DENTAL [address] [place] [address] Sal Gordon DDS 230 [place] [address] 2025 11:00 AM EDT Telemedicine [facility] MED & PEDS 505 [place] [address] Linda Pelaez, WALT 505 [place] [address] 04/19/2025 2:00 PM EDT Office Visit [facility] MED & PEDS 505 [place] [address] Chato Thomason MD 505 [place] [address] documented as of this encounter Visit Diagnoses Not on filedocumented in this encounter Care Teams Fruit Buying Grader Relationship Specialty Start Date End Date Chato Thomason MD [address] [place] [address] PCP - General Internal Medicine 10/27/18 Kelsey Minaya Community Health Worker 06/08/24 07/07/24 Eliane Metzger Casting SupervisorSagger Filler 01/29/24 07/08/24 Mackenzie Roland Casting Supervisor 07/09/24 Angela Pozo Casting Supervisor 07/09/24 [facility] 06/12/23 documented as of this encounter
--- OUTSIDE RECORDS SUMMARY | 2025-01-14 15:40 | XMS_ITS | Encounter Summary ---
Author Organization [facility] [employer] Address [address] [place] [address] Care Team Providers Care Supervisor Electron Tube Processing Name Role Phone Chato Thomason MD Primary Care Provider [phone] Reason for Referral * Consultation (Routine) - Closed Specialty Diagnoses / Procedures Referred By Contac t Referred To Contact Pain Medicine Diagnoses Squamous cell carcinoma of larynx (CMS/HCC) Dysphagia, unspecified type Chato Thomason MD 505 [place] [address] Phone: tel: fax: Moe Luna MD [address] [place] [address] [place] [address] Phone: tel: fax: Referral ID Status Reason Start Date Expiration Date V isits Requested Visits Authorized [id number] Closed Specialty Services Required 12/20/2024 12/20/2025 1 1 Encounter Details Date Type Department Care Team (Late st Contact Info) Description 12/20/2024 Orders Only [facility] MEDICINE [address] [place] [address] Chato Thomason MD [address] [place], [place] [phone] Squamous cell carcinoma of larynx (CMS/HCC) (Primary Dx); Dysphagia, unspecified type Social History Tobacco Use Types Packs/Day Years [...] Description 01/24/2025 9:00 AM EDT Telemedicine [facility] MEDICINE 230 [place] [address] 02/11/2025 10:00 AM EDT Office Visit [facility] ADULT DENTAL 230 [place] [address] Sal Gordon DDS 230 [place] [address] 2025 11:00 AM EDT Telemedicine [facility] MED & PEDS 505 [place] [address] Linda Pelaez RN 505 [place] [address] 04/19/2025 2:00 PM EDT Office Visit [facility] MED & PEDS 505 [place] [address] Chato Thomason MD 505 [place] [address] Scheduled Referrals Name Type Priority Associated Diagnoses Orde r Schedule Referral to Pain Medicine Outpatient Referral Routine Squamous cell carcinoma of larynx (CMS/HCC) Dysphagia, unspecified type Expected: 12/20/2024 (Approximate), Expires: 12/20/2025 documented as of this encounter Visit Diagnoses Diagnosis 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, unspecified site Dysphagia, unspecified type documented in this encounter Additional Health Concerns Assessment Noted Time PHQ-9 Depression Total Score: 19 024 3:44 PM EDT documented as of this encounter Care Teams Supervisor Electron Tube Processing Relationship Specialty Start Date End Date Chato Thomason MD 505 [place] [address] PCP - General Internal Medicine 10/27/18 Mackenzie Roland Digital Marketing Specialist 07/09/24 Angela Pozo Digital Marketing Specialist 07/09/24 [facility] 06/12/23 documented as of this encounter
--- OUTSIDE RECORDS SUMMARY | 2025-01-14 15:40 | XMS_ITS | Encounter Summary ---
Author Organization [employer] Address 75 [facility] 7t [place] [address] Care Team Providers Care Supervisor Extrusion Name Role Phone Chato Thomason MD Primary Care Provider [phone] Kelsey Minaya Unavailable Unavailable Reason for Visit * Reason Onset Date Comments Paperwork/Forms 02/02/2024 Encounter Details Date Type Department Care Team ([facility] st Contact Info) Description 02/02/2024 Telephone [facility] MEDICINE [address] [place] [address] Chato Thomason MD 505 [place] [address] Paperwork/Forms Social History Tobacco Use Types Packs/Day Years [...] * Telephone Encounter - Ronaldo Larios - 02/02/2024 10:48 AM EDT Tc from [place] at [facility] requesting status of the Transfer Summary that was faxed over on 12/01 the order number is [id number] needs to be completed and signed by the provider as soon as possible and to be faxed to [phone] documented in this encounter Plan of Treatment Upcoming Encounters Date Type Department Care Team (Late st Contact Info) Description 01/24/2025 9:00 AM EDT Telemedicine [facility] MEDICINE [address] [place] [address] 02/11/2025 10:00 AM EDT Office Visit [facility] ADULT DENTAL [address] [place] [address] Sal Gordon DDS 230 [place] [address] 2025 11:00 AM EDT Telemedicine [facility] MED & PEDS 505 [place] [address] Linda Pelaez RN 505 [place] [address] 04/19/2025 2:00 PM EDT Office Visit [facility] MED & PEDS 505 [place] [address] Chato Thomason MD 505 [place] [address] documented as of this encounter Visit Diagnoses Not on filedocumented in this encounter Care Teams Supervisor Extrusion Relationship Specialty Start Date End Date Chato Thomason MD [address] [place] [address] PCP - General Internal Medicine 10/27/18 Kelsey Minaya Community Health Worker 06/08/24 07/07/24 Eliane Metzger Gathering WorkerMaintenance Advisor 01/29/24 07/08/24 Mackenzie Roland Gathering Worker 07/09/24 Angela Pozo Gathering Worker 07/09/24 [facility] 06/12/23 documented as of this encounter
--- OUTSIDE RECORDS SUMMARY | 2025-01-14 15:40 | XMS_ITS | Encounter Summary ---
Author Organization [facility] Address [address] [place] [address] Care Team Providers Care College And Career Counselor Name Role Phone Physician, No Pcp Primary Care Provider Unavaila ble Reason for Visit * Consultation (Routine) - Authorized Specialty Diagnoses / Procedures Referred By Maryana singh Referred To Contact Occupational Therapy Diagnoses Lymphedema Chato Thomason MD [address] [place], [place] Phone: tel: fax: [facility] Occupational Therapy [address] [place] [phone] Phone: tel: fax: Referral ID Status Reason Start Date Expiration Date Visits Requested Visits Authorized [id number] Authorized Specialty Services Required 10/07/2025 17 17 Encounter Details Date Type Department Care Team (Late st Contact Info) Description 01/11/2025 12:[address] [facility] Occupational Therapy [address] [place] [phone] Nilam Botello, OTR/L Lymphedema of face (Primary Dx) Social History Tobacco Use Types Packs/Day Years Used Date Smoking Tobacco: Never Assessed Sex and Gender Information Value Date Recorded Sex Assigned at Not on file Legal Sex Male 8:43 PM EST Gender Identity Not on file Sexual Orientation Not on file documented as of this encounter Progress Notes * Nilam Botello OTR/L - 01/11/2025 12:30 PM EDT [facility] - Outpatient OCCUPATIONAL THERAPY DAILY TREATMENT NOTE Date: 01/11/2025 Visit Number: [id number] Patient Name: Lawrence Childers : 1965 Age: 59 y.o. Gender: male Diagnosis: ICD-10-CM ICD-9-CM 1. Lymphedema of face I89.0 457.1 Date of Onset: 09/22/2024 Referring Provider: Chato Thomason MD Insurance: Pay[place] / Plan[place] / Product Type: *No Product type* / Patient identified by: Nilam Botello OTR/L Language: Speaks and understands Malian as preferred language with no utility tender carding required Allergies: has no allergies on file. Precautions: Neck breather SUBJECTIVE Subjective Report: I got the thing but I have not tried it on yet Pain: No pain OBJECTIVE Patient presents with sub mandible edema, area of palpable fibrosis right sub mandible jaw. Visibleand palpable edema both cheeks Forward head position Fascial hair both jaws TREATMENT INTERVENTION Procedures: Performed MLD according to Dr. Montes method, Performed neck routine/ part of face and nape of neck routine Increased lymph flow through both axilla's/ B intercostals and B paraspinals Used increased manual technique to address fibrosis right side of face/ sub mandible area Soft tissue work to address tight tissue in right side of neck /face Self care ; Patient purchased recommended garment ( Sheba no neck face mask) Therapist donned garment which fits well and demo donning/doffing garment Patient was able to don/ doff garment independently Pain Reassessment: no new onset of pain. Assessment/Response To Treatment: Good No remaining fibrosis right sub mandible jaw. Patient reports less tissue tightness Patient Education: Education provided: Yes management of compression garment Education Provided To: Patient utilizing Explanation and Demonstration mode(s) of education Response to Education: Good PLAN POC Development/Review: Other: will f/u with patient in 2 weeks ; Participants: Patient Equipment Recommended: none; Equipment Provided: none GOALS Patient purchased suggested compression garment which fits well and patient demo independence in donning / doffing garment Total Treatment Time: 60 minutes Documentation completed by Nilam P Gijzen, OTR/L documented in this encounter Plan of Treatment Upcoming Encounters Date Type Department Care Team (Late st Contact Info) Description 01/25/2025 12:[address] [facility] Occupational Therapy [address] [phone] Nilam Botello OTR/L documented as of this encounter Goals Goal Patient Goal Type Associated Problems Recent Progress Patient-Stated? Author for the swelling to go away General Improving( 4:36 PM EST) Yes Nilam Botello OTR/L lymph edema/ fibrosis General No change(12/30 6:12 PM EST) No Nilam Botello OTR/L Note: STG Patient will present with decreased fibrosis in submandibular area 10/11 decreased fibrosis LTG patient will present with decreased palpable / visible and measurable lymph edema in head/ neck 12/30 2024 patient presents with decreased visible and palpable lymph edema in neck however developed fibrosis. Lymph edema in his cheeks self management General Improving( 6:11 PM EST) No Nilam Botello OTR/L Note: STG ; patient will be [...] General Improving( 6:13 PM EST) No Nilam Botello, OTR/L Note: STG: Patient will be able to demo 3 exercises to improve neck extension and chin tuck 10/11 goal has been met; patient is able to demo 3 exercises LTG: Patient will present with increased posture and he will have active neck extension 2024 Patient is independent in HEP and demo increased neck extension of about 15 degrees documented as of this encounter Visit Diagnoses Diagnosis Lymphedema of face- Primary documented in this encounter Care Teams College And Career Counselor Relationship Specialty Start Date End Date Physician, No Pcp PCP - General 09/22/24 documented as of this encounter
--- OUTSIDE RECORDS SUMMARY | 2025-01-14 15:40 | XMS_ITS | Encounter Summary ---
Author Organization [employer] Address [address] [facility] 7t [place] [address] Care Team Providers Care Shade Matcher Name Role Phone Chato Thomason MD Primary Care Provider [phone] Kelsey Minaya Unavailable Unavailable Encounter Details Date Type Department Care Team (Late st Contact Info) Description 06/24/2024 Orders Only [facility] CHC MED & PEDS [address] [place], [place] [phone] ProviderColleen MD Social History Tobacco Use Types [...] 01/24/2025 9:00 AM EDT Telemedicine [facility] MEDICINE [address] [place] [address] 02/11/2025 10:00 AM EDT Office Visit [facility] ADULT DENTAL [address] [place] [address] Sal Gordon DDS [address] [place] [address] 2025 11:00 AM EDT Telemedicine [facility] MED & PEDS 505 [place] [address] Linda Pelaez, RN 505 [place] [address] 04/19/2025 2:00 PM EDT Office Visit [facility] MED & PEDS 505 [place] [address] Chato Thomason MD 505 [place] [address] documented as of this encounter Procedures Procedure Name Priority Date/Time Associated Diagnosis Comments CT SOFT TISSUE NECK W CONTRAST Routine 06/24/2024 2:25 PM EDT documented in this encounter Results * CT Soft Tissue Neck w/ Contrast (06/24/2024 2:25 PM EDT) Anatomical Region Laterality Modality Head, Neck Computed Tomogra phy us Historical Provider MD JEAN CT PROCEDURES Final R esult documented in this encounter Visit Diagnoses Not on filedocumented in this encounter Care Teams Shade Matcher Relationship Specialty Start Date End Date Chato Thomason MD [address] [place] [address] PCP - General Internal Medicine 10/27/18 Kelsey Minaya Community Health Worker 06/08/24 07/07/24 Eliane Metzger Outdoor Emergency Care TechnicianBrazing Furnace Operator 01/29/24 07/08/24 Mackenzie Roland Outdoor Emergency Care Technician 07/09/24 Angela Pozo Outdoor Emergency Care Technician 07/09/24 [facility] 06/12/23 documented as of this encounter
--- OUTSIDE RECORDS SUMMARY | 2025-01-14 15:41 | XMS_ITS | Encounter Summary ---
Author Organization [employer] Address [address] [facility] 7 [place] [address] Care Team Providers Care Certified Personal Trainer Name Role Phone Chato Thomason MD Primary Care Provider [phone] Kelsey Minaya Unavailable Unavailable Reason for Visit * Reason Onset Date Comments Referral 03/27/2023 Encounter Details Date Type Department Care Team ([facility] st Contact Info) Description 03/27/2023 Telephone [facility] MEDICINE 230 [place] [address] Chato Thomason MD 505 [place] [address] Referral Social History Tobacco Use Types Packs/Day Years Used Date Smoking Tobacco: Every Day Cigarettes 0.5 30 Passive Smoke Exposure: Current Smokeless Tobacco: Never Sex and Gender Information Value Date Recorded Sex Assigned at Male 08/26/2022 10:19 AM EDT Legal Sex Male 10:19 AM EDT Gender Identity Choose not to disclose 10:19 AM EDT Sexual Orientation Choose not to disclose 2021 10:19 AM EDT COVID-19 Exposure Response Date Recorded In the last 10 days, have yo u been in contact with someone who was confirmed or suspected to have Coronavirus/COVID-19? No / Unsure 03/17/2023 1:50 PM EDT documented as of this encounter Miscellaneous Notes * Telephone Encounter - Mandi Rei - 03/27/2023 2:43 PM EDT Tc from [facility] requesting a referral. Date: 03/31/2023 Time: 10:15 AM Location: [address] [place] [address] Specialty: [facility] Hematology Oncology NPI Facility: [id number] Department: [id number] DX: Squamous cell Carcinoma of Epiglottis Phone #: [phone] Fax #: [phone] documented in this encounter Plan of Treatment Upcoming Encounters Date Type Department Care Team (Late st Contact Info) Description 01/24/2025 9:00 AM EDT Telemedicine [facility] MEDICINE [address] [place] [address] 02/11/2025 10:00 AM EDT Office Visit [facility] ADULT DENTAL [address] [place] [address] Sal Gordon DDS [address] [place] [address] 2025 11:00 AM EDT Telemedicine [facility] MED & PEDS 505 [place] [address] Linda Pelaez, WALT 505 [place] [address] 04/19/2025 2:00 PM EDT Office Visit [facility] MED & PEDS 505 [place] [address] Chato Thomason MD 505 [place] [address] documented as of this encounter Visit Diagnoses Not on filedocumented in this encounter Care Teams Certified Personal Trainer Relationship Specialty Start Date End Date Chato Thomason MD 505 [place] [address] PCP - General Internal Medicine 10/27/18 Kelsey Minaya Community Health Worker 06/08/24 07/07/24 Eliane Metzger Car SanderMarket Stall Vendor 01/29/24 07/08/24 Mackenzie Roland Car Sander 07/09/24 Angela Pozo Car Sander 07/09/24 [facility] 06/12/23 documented as of this encounter
--- OUTSIDE RECORDS SUMMARY | 2025-01-14 15:41 | XMS_ITS | Encounter Summary ---
Author Organization [employer] Address [address] [place] [address] Care Team Providers Care Fisher Reef Net Name Role Phone Chato Thomason MD Primary Care Provider [phone] Kelsey Minaya Unavailable Unavailable Reason for Visit * Reason Onset Date Comments VNA Orders 07/28/2023 Encounter Details Date Type Department Care Team ([facility] st Contact Info) Description 07/28/2023 Telephone [facility] MED [facility]EDS [address] [place], [place] [phone] Chato Thomason MD 505 [place] [address] VNA Orders Social History Tobacco Use Types Packs/Day Years [...] encounter Miscellaneous Notes * Telephone Encounter - Bing Moreira - 07/28/2023 3:40 PM EDT Tc from [facility] requesting two VNA orders for: Face to Face Encounter Dated on 06/11/2023 (Please fax over office notes) Physician order Dated on 06/11/2023 [place] states that orders have a 30 day time frame. Please fax over at [phone] Please If any questions please contact Anabela at [phone] documented in this encounter Plan of Treatment Upcoming Encounters Date Type Department Care Team (Late st Contact Info) Description 01/24/2025 9:00 AM EDT Telemedicine [facility] MEDICINE [address] [place] [address] 02/11/2025 10:00 AM EDT Office Visit [facility] ADULT DENTAL [address] [place] [address] Sal Gordon DDS 230 [place] [address] 2025 11:00 AM EDT Telemedicine [facility] MED & PEDS 505 [place] [address] Linda Pelaez, RN 505 [place] [address] 04/19/2025 2:00 PM EDT Office Visit [facility] MED & PEDS 505 [place] [address] Chato Thomason MD 505 [place] [address] documented as of this encounter Visit Diagnoses Not on filedocumented in this encounter Care Teams Fisher Reef Net Relationship Specialty Start Date End Date Chato Thomason MD 505 [place] [address] PCP - General Internal Medicine 10/27/18 Kelsey Minaya Community Health Worker 06/08/24 07/07/24 Eliane Metzger Buckle InspectorFunds Development Director 01/29/24 07/08/24 Mackenzie Roland Buckle Inspector 07/09/24 Angela Pozo Buckle Inspector 07/09/24 [facility] 06/12/23 documented as of this encounter
--- OUTSIDE RECORDS SUMMARY | 2025-01-14 15:41 | XMS_ITS | Encounter Summary ---
Author Organization [employer] Address [address] [place] [address] 7t [place] [address] Care Team Providers Care Auto Body Repairer Name Role Phone Chato Thomason MD Primary Care Provider Kelsey Minaya Unavailable Unavailable Encounter Details Date Type Department Care Team (Late Contact Info) Description 12/04/2022 Abstract [facility] MEDICINE [address] [place] [address] Chato Thomason MD [address] [place] [address] Social History Tobacco Use Types Packs/Day Years [...] Info) Description 01/24/2025 9:00 AM EDT Telemedicine [facility] MEDICINE [address] [place] [address] 02/11/2025 10:00 AM EDT Office Visit [facility] ADULT DENTAL [address] [place] [address] Sal Gordon DDS [address] [place] [address] 2025 11:00 AM EDT Telemedicine [facility] MED & PEDS [address] [place] [address] Linda Pelaez, RN 505 [place] [address] 04/19/2025 2:00 PM EDT Office Visit [facility] MED & PEDS 505 [place] [address] Chato Thomason MD [address] [place] [address] documented as of this encounter Visit Diagnoses Not on filedocumented in this encounter Care Teams Auto Body Repairer Relationship Specialty Start Date End Date Chato Thomason MD [address] [place] [address] PCP - General Internal Medicine 10/27/18 Kelsey Minaya Community Health Worker 06/08/24 07/07/24 Eliane Metzger Custodial AideFork Truck Driver 01/29/24 07/08/24 Mackenzie Roland Custodial Aide 07/09/24 Angela Pozo Custodial Aide 07/09/24 [facility] 06/12/23 documented as of this encounter
--- OUTSIDE RECORDS SUMMARY | 2025-01-14 15:41 | XMS_ITS | Encounter Summary ---
Author Organization [employer] Address [address] [facility] 7t [place] [address] Care Team Providers Care District Administrative Assistant Name Role Phone Chato Thomason MD Primary Care Provider [phone] Kelsey Minaya Unavailable Unavailable Encounter Details Date Type Department Care Team (Late st Contact Info) Description 08/28/2023 Abstract [facility] MEDICINE [address] [place] [address] Chato Thomason MD [address] [place] [address] Social History Tobacco Use Types Packs/Day Years [...] got money to buy more: Never True 08/11/2023 Within the past 12 months,th e food [...] 01/24/2025 9:00 AM EDT Telemedicine [facility] MEDICINE [address] [place] [address] 02/11/2025 10:00 AM EDT Office Visit [facility] ADULT DENTAL [address] [place] [address] Sal Gordon DDS [address] [place] [address] 2025 11:00 AM EDT Telemedicine [facility] MED & PEDS 505 [place] [address] Linda Pelaez RN 505 [place] [address] 04/19/2025 2:00 PM EDT Office Visit [facility] MED & PEDS 505 [place] [address] Chato Thomason MD [address] [place] [address] documented as of this encounter Procedures Procedure Name Priority Date/Time Associated Diagnosis Comments IFOBT Routine 05/20/2022 8:42 AM EDT documented in this encounter Results * gFOBT (05/20/2022 8:42 AM EDT) Fecal Occult Blood 1 Negative Fecal Occult Blood 2 Negative Fecal Occult Blood 3 Negative 05/20/2022 8:42 AM EDT Historical Provider POINT OF CARE TEST ENTER/ EDIT ORDERABLES Final Result documented in this encounter Visit Diagnoses Not on filedocumented in this encounter Care Teams District Administrative Assistant Relationship Specialty Start Date End Date Chato Thomason MD [address] [place] [address] PCP - General Internal Medicine 10/27/18 Kesley Minaya Community Health Worker 06/08/24 07/07/24 Eliane Metzger Account SupervisorAdolescent Counselor 01/29/24 07/08/24 Mackenzie Roland Account Supervisor 07/09/24 Angela Pozo Account Supervisor 07/09/24 [facility] 06/12/23 documented as of this encounter
--- OUTSIDE RECORDS SUMMARY | 2025-01-14 15:41 | XMS_ITS | Encounter Summary ---
Author Organization [employer] Address [address] [facility] 7t [place] [address] Care Team Providers Care Engineering Group Leader Name Role Phone Chato Thomason MD Primary Care Provider [phone] Kelsey Minaya Unavailable Unavailable Encounter Details Date Type Department Care Team ([facility] st Contact Info) Description 08/13/2023 Orders Only [facility] CHC MED & PEDS [address] [place], [place] [phone] Chato Thomason MD 505 [place] [address] Spongiotic dermatitis (Primary Dx) Social History Tobacco Use Types Packs/Day Years Used Date Smoking Tobacco: Every Day Cigarettes 0.5 30 Passive Smoke Exposure: Current Smokeless Tobacco: Never Housing Stability Answer Date Recorded What is [...] Upcoming Encounters Date Type Department Care Team ([facility] st Contact Info) Description 01/24/2025 9:00 AM EDT Telemedicine [facility] MEDICINE [address] [place] [address] 02/11/2025 10:00 AM EDT Office Visit [facility] ADULT DENTAL [address] [place] [address] Sal Gordon DDS [address] [place] [address] 2025 11:00 AM EDT Telemedicine [facility] MED & PEDS [address] [place] [address] Linda Pelaez, WALT 505 [place] [address] 04/19/2025 2:00 PM EDT Office Visit [facility] MED & PEDS 505 [place] [address] Chato Thomason MD 505 [place] [address] documented as of this encounter Visit Diagnoses Diagnosis Spongiotic dermatitis- Primary Contact dermatitis and other eczema, due to unspecified cause documented in this encounter Care Teams Engineering Group Leader Relationship Specialty Start Date End Date Chato Thomason MD 505 [place] [address] PCP - General Internal Medicine 10/27/18 Kelsey Minaya Community Health Worker 06/08/24 07/07/24 Eliane Metzger Home Care AideRefrigeration Mechanic 01/29/24 07/08/24 Mackenzie Roland Home Care Aide 07/09/24 Angela Pozo Home Care Aide 07/09/24 [facility] 06/12/23 documented as of this encounter
--- OUTSIDE RECORDS SUMMARY | 2025-01-14 15:41 | XMS_ITS | Encounter Summary ---
Author Organization [employer] Address [address] [facility] 7 [place] [address] Care Team Providers Care Solar Mechanical Engineer Name Role Phone Chato Thomason MD Primary Care Provider [phone] Reason for Visit * Reason Onset Date Comments Med Refill 11/30/2024 Encounter Details Date Type Department Care Team ([facility] st Contact Info) Description 11/30/2024 Telephone [facility] MEDICINE [address] [place], [place] [phone] Chato Thomason MD 505 [place] [address] Med Refill Social History Tobacco Use Types [...] * Telephone Encounter - Reuben Edward - 11/30/2024 8:15 AM EST TC from pt requesting medication refill. Medications needing refill : gabapentin (Neurontin) 250 MG/5ML solution traZODone (Desyrel) 50 MG tablet hydrOXYzine HCl (Atarax) 50 MG tablet To be sent to: [facility] - [place], [place] - [address] [place] [address] St documented in this encounter Plan of Treatment Upcoming Encounters Date Type Department Care Team (Late st Contact Info) Description 01/24/2025 9:00 AM EDT Telemedicine [facility] MEDICINE [address] [place], [place] [phone] 02/11/2025 10:00 AM EDT Office Visit [facility] ADULT DENTAL [address] [place] [address] Sal Gordon DDS [address] [place] [address] 2025 11:00 AM EDT Telemedicine [facility] CH[facility] MED & PEDS 505 [place] [address] Linda Pelaez RN 505 [place] [address] 04/19/2025 2:00 PM EDT Office Visit [facility] MED & PEDS 505 [place] [address] Chato Thomason MD 505 [place] [address] documented as of this encounter Visit Diagnoses Not on filedocumented in this encounter Additional Health Concerns Assessment Noted Time PHQ-9 Depression Total Score: 19 024 3:44 PM EDT documented as of this encounter Care Teams Solar Mechanical Engineer Relationship Specialty Start Date End Date Chato Thomason MD 505 [place] [address] PCP - General Internal Medicine 10/27/18 Mackenzie Roland Elementary Special Education Teacher 07/09/24 Angela Pozo Elementary Special Education Teacher 07/09/24 [facility] 06/12/23 documented as of this encounter
--- OUTSIDE RECORDS SUMMARY | 2025-01-14 15:41 | XMS_ITS | Encounter Summary ---
Author Organization [employer] Address [address] [place] [address] 7t [place] [address] Care Team Providers Care Head Of Research & Insights Name Role Phone Chato Thomason MD Primary Care Provider Kelsey Minaya Unavailable Unavailable Encounter Details Date Type Department Care Team (Late Contact Info) Description 12/04/2022 Abstract [facility] MEDICINE [address] [place] [address] Chato Thomason MD 505 [place] [address] Social History Tobacco Use Types Packs/Day Years [...] Info) Description 01/24/2025 9:00 AM EDT Telemedicine [facility] MEDICINE 230 [place] [address] 02/11/2025 10:00 AM EDT Office Visit [facility] ADULT DENTAL 230 [place] [address] Sal Gordon DDS [address] [place] [address] 2025 11:00 AM EDT Telemedicine [facility] CHC MED & PEDS 505 [place] [address] Linda Pelaez, RN 505 [place] [address] 04/19/2025 2:00 PM EDT Office Visit [facility] MED & PEDS 505 [place] [address] Chato Thomason MD 505 [place] [address] documented as of this encounter Visit Diagnoses Not on filedocumented in this encounter Care Teams Head Of Research & Insights Relationship Specialty Start Date End Date Chato Thomason MD 505 [place] [address] PCP - General Internal Medicine 10/27/18 Kelsey Minaya Community Health Worker 06/08/24 07/07/24 Eliane Metzger Tile MechanicBiztalk Developer 01/29/24 07/08/24 Mackenzie Roland Tile Mechanic 07/09/24 Angela Pozo Tile Mechanic 07/09/24 [facility] 06/12/23 documented as of this encounter
--- OUTSIDE RECORDS SUMMARY | 2025-01-14 15:41 | XMS_ITS | Encounter Summary ---
Author Organization [employer] Address [address] [place] [address] 7t [place] [address] Care Team Providers Care Helmet Hat Brim Cutter Name Role Phone Chato Thomason MD Primary Care Provider [phone] Reason for Visit * Reason Comments Dental Exam Denture impressions Encounter Details Date Type Department Care Team ([facility] Contact Info) Description 12/08/2024 9:00 AM EST Office Visit [facility] CHC ADULT DENTAL [address] [place], [place] [phone] Marilee Cartwright 505 [place] [address] Social History Tobacco Use Types Packs/Day Years [...] as of this encounter Progress Notes * Marilee Cartwright - 12/08/2024 9:00 AM EST Dental procedures in this visit D9999 - NO CHARGE VISIT (Completed) Service provider: Marilee Cartwright Billing provider: Marilee Cartwright Patient ID: Lawernce Childers is a 59 y.o. adult. Time Out: Timeout Date: 12/08/24 (denture impressions), Timeout Time: 0900 Location: [facility] Tooth: Maxilla and Mandible Procedure: Dentures Verified the above with patient, teachers' assistant, and provider. Confirmed via patient's chart, intraorally and by radiographs. Title Closer: not applicable Chief Complaint Patient presents with Dental Exam Denture impressions Medical Hx: Vitals: There were no vitals taken for this visit. Past Medical History: Diagnosis Date Hx of laryngectomy Throat cancer ([facility] Medications: Outpatient Encounter Medications as of 12/08/2024 Medication Sig Dispense Refill acetaminophen (Liquid Acetaminophen) [...] tablet 0 LORazepam (Ativan) 1 MG tablet TAKE ONE TABLET EVERY TWELVE HOURS NEEDED FOR ANXIETY 40 tablet 0 oxyCODONE (Roxicodone) 15 MG immediate release tablet TAKE 1/2 TABLET EVERY 6 HOURS NEEDED FOR SEVERE PAIN 15 tablet 0 oxyCODONE HCl 7.5 MG tablet Take 1 tablet (7.5 mg) by mouth every 6 (six) hours if needed for severe pain. Do not crush or chew. 30 tablet 0 traZODone (Desyrel) 50 MG tablet TAKE ONE OR TWO TABLETS AT BEDTIME 60 tablet 0 Ventolin HFA 108 (90 Base) MCG/ACT inhaler INHALE 2 PUFFS INTO THE LUNGS EVERY 4 HOURS 18 g 11 [DISCONTINUED] gabapentin (Neurontin) 250 MG/5ML solution Take 10 mL (500 mg) by mouth every 8 (eight) hours. 900 mL 11 [DISCONTINUED] hydrOXYzine HCl (Atarax) 50 MG tablet Take 1 tablet (50 mg) by mouth if needed in the morning, at noon, and at bedtime for anxiety. 90 tablet 3 [DISCONTINUED] LORazepam (Ativan) 1 MG tablet Take 1 tablet (1 mg) by mouth every 12 (twelve) hoursif needed for anxiety. 40 tablet 0 [DISCONTINUED] traZODone (Desyrel) 50 MG tablet TAKE 1 TO 2 TABLETS BY MOUTH AT BEDTIME 60 tablet 2 No facility-administered encounter medications on file as of 12/08/2024. 59 y/o male presents for an complete upper/lower denture impressions seen by Dr. Marilee Cartwright, KARIN. Chief Complaint: Pt came for denture impressions appointment. Medical History: Patient does not report any changes in health issues since last time. Medical consult / medical clearance needed: yes (dentures will be started after medical clearance received) Allergies: Reviewed in EHR Medications: Reviewed in EHR SELDOVIA: Pain: no Duration: n/a Scale of pain from 1-10 = n/a Pain radiating: n/a Postural variation: n/a Allergies: Reviewed in EHR Medications: Reviewed in EHR Radiographs X-rays taken today: none taken today (NEED TO TAKE PANO IN NEXT VISIT) Discussion: -Pt came for appointment for complete upper/lower denture - preliminary impressions. -Pt's relative was asked about medical clearance since patient and patient's relative didn't gave medical clearance form given last time at the front office representative to get it scanned nor brought the physical copy filled by patient's PCP. -Pt's relative stated that patient's PCP has cleared pt for dentures in a very disrespectful way and left the operatory. -Pt was given a new medical clearance form today and was explained the importance of filled form considering patients safety and comfort given patient's complicated medical history. -Pt a was satisfied with our conversation and dismissed in good condition. -All questions answered. NV: PANO - preliminary impressions- alginate(dentures will be started after medical clearance) Rig Supervisor: Aleyda Colon Dentist: Dr. Marilee Cartwright, DMD documented in this encounter Plan of Treatment Upcoming Encounters Date Type Department Care Team (Late st Contact Info) Description 01/24/2025 9:00 AM EDT Telemedicine [facility] MEDICINE [address] [place] [address] 02/11/2025 10:00 AM EDT Office Visit [facility] ADULT DENTAL 230 [place] [address] Sal Gordon DDS 230 [place] [address] 2025 11:00 AM EDT Telemedicine [facility] MED & PEDS [address] [place] [address] Linda Pelaez, RN 505 [place] [address] 04/19/2025 2:00 PM EDT Office Visit [facility] MED & PEDS [address] [place] [address] Chato Thomason MD 505 [place] [address] documented as of this encounter Procedures Procedure Name Priority Date/Time Associated Diagnosis Comments NO CHARGE VISIT Routine 12/08/2024 9:00 AM EST documented in this encounter Visit Diagnoses Not on filedocumented in this encounter Additional Health Concerns Assessment Noted Time PHQ-9 Depression Total Score: 19 024 3:44 PM EDT documented as of this encounter Care Teams Helmet Hat Brim Cutter Relationship Specialty Start Date End Date Chato Thomason MD 505 [place] [address] PCP - General Internal Medicine 10/27/18 Mackenzie Roland Cushion Cover Inspector 07/09/24 Angela Pozo Cushion Cover Inspector 07/09/24 [facility] 06/12/23 documented as of this encounter
--- OUTSIDE RECORDS SUMMARY | 2025-01-14 15:41 | XMS_ITS | Encounter Summary ---
Author Organization [employer] Address [address] [place] [address] 7t [place] [address] Care Team Providers Care Shuttle Inspector Name Role Phone Chato Thomason MD Primary Care Provider [phone] Kelsey Minaya Unavailable Unavailable Encounter Details Date Type Department Care Team (Late st Contact Info) Description 07/03/2023 Orders Only [facility] CHC MED & PEDS [address] [place] [address] Lucia Elmore LPN Social History Tobacco Use Types Packs/Day Years [...] Info) Description 01/24/2025 9:00 AM EDT Telemedicine [facility] MEDICINE [address] [place] [address] 02/11/2025 10:00 AM EDT Office Visit [facility] ADULT DENTAL [address] [place] [address] Sal Gordon DDS [address] [place] [address] 2025 11:00 AM EDT Telemedicine [facility] MED & PEDS [address] [place] [address] Linda Pelaez, RN 505 [place] [address] 04/19/2025 2:00 PM EDT Office Visit [facility] MED & PEDS [address] [place] [address] Chato Thomason MD 505 [place] [address] documented as of this encounter Visit Diagnoses Not on filedocumented in this encounter Care Teams Shuttle Inspector Relationship Specialty Start Date End Date Chato Thomason MD 505 [place] [address] PCP - General Internal Medicine 10/27/18 Kelsey Minaya Community Health Worker 06/08/24 07/07/24 Eliane Metzger Fraud RepresentativeCombustion Analyst 01/29/24 07/08/24 Mackenzie Roland Fraud Representative 07/09/24 Agnela Pozo Fraud Representative 07/09/24 [facility] 06/12/23 documented as of this encounter
--- OUTSIDE RECORDS SUMMARY | 2025-01-14 15:41 | XMS_ITS | Encounter Summary ---
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); Other insomnia; Anxiety; History of laryngectomy Social History Tobacco Use Types Packs/Day Years [...] Info) Description 01/24/2025 9:00 AM EDT Telemedicine [facility] MEDICINE [address] [place] [address] 02/11/2025 10:00 AM EDT Office Visit [facility] ADULT DENTAL [address] [place] [address] Sal Gordon DDS [address] [place] [address] 2025 11:00 AM EDT Telemedicine [facility] MED & PEDS 505 [place] [address] Linda Pelaez, RN 505 [place] [address] 04/19/2025 2:00 PM EDT Office Visit [facility] MED & PEDS 505 [place] [address] Chato Thomason MD 505 [place] [address] documented as of this encounter Visit Diagnoses Diagnosis 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, unspecified site Other insomnia Anxiety Anxiety state, unspecified History of laryngectomy Other postprocedural status documented in this encounter Additional Health Concerns Assessment Noted Time PHQ-9 Depression Total Score: 19 024 3:44 PM EDT documented as of this encounter Care Teams Project Safety Manager Relationship Specialty Start Date End Date Chato Thomason MD [address] [place] [address] PCP - General Internal Medicine 10/27/18 Mackenzie Roland Director Blood Bank 07/09/24 Angela Pozo Director Blood Bank 07/09/24 [facility] 06/12/23 documented as of this encounter
--- OUTSIDE RECORDS SUMMARY | 2025-01-14 15:41 | XMS_ITS | Encounter Summary ---
Author Organization [employer] Address [address] [facility] 7t [place] [address] Care Team Providers Care Vice President Residential Solar Sales Name Role Phone Chato Thomason MD Primary Care Provider [phone] Kelsey Minaya Unavailable Unavailable Encounter Details Date Type Department Care Team (Late st Contact Info) Description 11/05/2023 Abstract [facility] MEDICINE [address] [place] [address] Chato Thomason MD 505 [place] [address] Social History Tobacco Use Types Packs/Day Years [...] Info) Description 01/24/2025 9:00 AM EDT Telemedicine [facility] MEDICINE [address] [place] [address] 02/11/2025 10:00 AM EDT Office Visit [facility] ADULT DENTAL [address] [place] [address] Sal Gordon DDS [address] [place] [address] 2025 11:00 AM EDT Telemedicine [facility] MED & PEDS [address] [place] [address] Linda Pelaez, RN [address] [place] [address] 04/19/2025 2:00 PM EDT Office Visit [facility] MED & PEDS [address] [place] [address] Chato Thomason MD 505 [place] [address] documented as of this encounter Visit Diagnoses Not on filedocumented in this encounter Care Teams Vice President Residential Solar Sales Relationship Specialty Start Date End Date Chato Thomason MD 505 [place] [address] PCP - General Internal Medicine 10/27/18 Kelsey Minaya Community Health Worker 06/08/24 07/07/24 Eliane Metzger Jumpbasting Collar BasterLaboratory Manager 01/29/24 07/08/24 Mackenzie Roland Jumpbasting Collar Baster 07/09/24 Angela Pozo Jumpbasting Collar Baster 07/09/24 [facility] 06/12/23 documented as of this encounter
--- OUTSIDE RECORDS SUMMARY | 2025-01-14 15:41 | XMS_ITS | Encounter Summary ---
Author Organization [employer] Address [address] [facility] 7t [place] [address] Care Team Providers Care Medicine Aide Name Role Phone Chato Thomason MD Primary Care Provider [phone] Encounter Details Date Type Department Care Team ([facility] st Contact Info) Description 07/22/2024 Orders Only [facility] CHC MED & PEDS [address] [place], [place] [phone] Chato Thomason MD 505 [place], [place] [phone] Anxiety Social History Tobacco Use Types Packs/Day [...] Info) Description 01/24/2025 9:00 AM EDT Telemedicine [facility] MEDICINE [address] [place] [address] 02/11/2025 10:00 AM EDT Office Visit [facility] ADULT DENTAL [address] [place] [address] Sal Gordon DDS [address] [place] [address] 2025 11:00 AM EDT Telemedicine [facility] MED & PEDS [address] [place] [address] Linda Pelaez, WALT [address] [place] [address] 04/19/2025 2:00 PM EDT Office Visit [facility] MED & PEDS [address] [place] [address] Chato Thomason MD 505 [place] [address] documented as of this encounter Visit Diagnoses Diagnosis Anxiety Anxiety state, unspecified documented in this encounter Care Teams Medicine Aide Relationship Specialty Start Date End Date Chato Thomason MD 505 [place] [address] PCP - General Internal Medicine 10/27/18 Mackenzie Roland Entry Level Electrician 07/09/24 Angela Pozo Entry Level Electrician 07/09/24 [facility] 06/12/23 documented as of this encounter
--- OUTSIDE RECORDS SUMMARY | 2025-01-14 15:41 | XMS_ITS | Encounter Summary ---
Author Organization [employer] Address [address] [facility] 7t [place] [address] Care Team Providers Care Tig Welder Name Role Phone Chato Thomason MD Primary Care Provider [phone] Encounter Details Date Type Department Care Team ([facility] st Contact Info) Description 10/04/2024 Orders Only [facility] CHC MED & PEDS [address] [place], [place] [phone] Provider, MD Colleen Social History Tobacco Use Types Packs/Day Years Used Date Smoking Tobacco: Former Cigarettes 1 1 8 - 2022 Passive Smoke Exposure: [...] 9:00 AM EDT Telemedicine [facility] MEDICINE [address] [place] [address] 02/11/2025 10:00 AM EDT Office Visit [facility] ADULT DENTAL [address] [place] [address] Sal Gordon DDS 230 [place] [address] 2025 11:00 AM EDT Telemedicine [facility] MED & PEDS [address] [place] [address] Linda ePlaez RN [address] [place] [address] 04/19/2025 2:00 PM EDT Office Visit [facility] MED & PEDS 505 [place] [address] Chato Thomason MD [address] [place] [address] documented as of this encounter Procedures Procedure Name Priority Date/Time Associated Diagnosis Comments SURGICAL PATHOLOGY Routine 09/29/2024 10:44 AM EST documented in this encounter Results * Surgical Pathology (09/29/2024 10:44 AM EST) Historical Provider LAB PATHOLOGY ORDERABLES Final Result documented in this encounter Visit Diagnoses Not on filedocumented in this encounter Additional Health Concerns Assessment Noted Time PHQ-9 Depression Total Score: 19 024 3:44 PM EDT documented as of this encounter Care Teams Tig Welder Relationship Specialty Start Date End Date Chato Thomason MD [address] [place] [address] PCP - General Internal Medicine 10/27/18 Mackenzie Roland Cooker Process Cheese 07/09/24 Angela Pozo Cooker Process Cheese 07/09/24 [facility] 06/12/23 documented as of this encounter
--- OUTSIDE RECORDS SUMMARY | 2025-01-14 15:41 | XMS_ITS | Encounter Summary ---
Author Organization [facility] Address [address] [place] [address] Care Team Providers Care Research Subject Name Role Phone Physician, No Pcp Primary Care Provider Unavaila ble Reason for Visit * Consultation (Routine) - Authorized Specialty Diagnoses / Procedures Referred By Maryana singh Referred To Contact Occupational Therapy Diagnoses Lymphedema Chato Thomason MD [address] [place], [place] Phone: tel: fax: [facility] Occupational Therapy [address] [place] [phone] Phone: tel: fax: Referral ID Status Reason Start Date Expiration Date Visits Requested Visits Authorized [id number] Authorized Specialty Services Required 10/07/2025 17 17 Encounter Details Date Type Department Care Team (Late st Contact Info) Description 12/15/2024 12:30 PM EST Treatment [facility] Occupational Therapy [address] [place] [phone] Nilam Botello, OTR/L Lymphedema of face (Primary Dx) Social History Tobacco Use Types Packs/Day Years Used Date Smoking Tobacco: Never Assessed Sex and Gender Information Value Date Recorded Sex Assigned at Not on file Legal Sex Male 8:43 PM EST Gender Identity Not on file Sexual Orientation Not on file documented as of this encounter Progress Notes * Nilam Botello OTR/Esther - 12/15/2024 12:30 PM EST [facility] - Outpatient OCCUPATIONAL THERAPY DAILY TREATMENT NOTE Date: 12/15/2024 Visit Number: [id number] Patient Name: Lawrence Childers : 1965 Age: 59 y.o. Gender: male Diagnosis: No diagnosis found. Date of Onset: 09/22/2024 Referring Provider: Chato Thomason MD Insurance: Pay[place] / Plan[place] / Product Type: *No Product type* / Patient identified by: OMER Aguirre Language: Speaks and understands Beninese as preferred language with no city wellness coordinator required Allergies: has no allergies on file. Precautions: Neck breather SUBJECTIVE Subjective Report: the Pet scan came out clear and there is no more cancer Pain: In am when waking ; stiffness but it gets better after doing exercises OBJECTIVE Patient has small skin irritation sub mandible area were tissue touched stoma No signs of infection Visible tissue tightness in both left and right side of neck and sub mandible lymph edema TREATMENT INTERVENTION Procedures: Performed MLD according to Dr. Montes method, Performed neck routine/ part of face and nape of neck routine Increased lymph flow through both axilla's/ B intercostals and B paraspinals Soft tissue work to address tight tissue in right side of neck /face In supine with therapist hands holding patient's head to provide feetback 3 x 10 reps chin tuck Seated in short sit with therapist providing gentle stretch for neck rotations and extension ( while working on scar tissue using manual techniques) 2 x 10 reps ( sh rotations to left and right / neck flex and extension ) Pain Reassessment: no complains of pain Assessment/Response To Treatment: Good I feel so much better, thanks! Patient Education: Education provided: Yes HEP Education Provided To: Patient utilizing Explanation mode(s) of education Response to Education: Good PLAN POC Development/Review: POC ; Participants: Patient Equipment Recommended: none; Equipment Provided: none GOALS Less visible edema head/neck Total Treatment Time: 60 minutes Documentation completed by OMER Aguirre documented in this encounter Plan of Treatment Upcoming Encounters Date Type Department Care Team (Late st Contact Info) Description 01/25/2025 12:30 PM EDT Treatment [facility] Occupational Therapy [address] [phone] Nilam Botello, OTR/L documented as of this encounter Goals Goal Patient Goal Type Associated Problems Recent Progress Patient-Stated? Author for the swelling to go away General Improving( 4:36 PM EST) Yes Nilam Botello P, OTR/L lymph edema/ fibrosis General No change(12/30 [...] Primary documented in this encounter Care Teams Research Subject Relationship Specialty Start Date End Date Physician, No Pcp PCP - General 09/22/24 documented as of this encounter
--- OUTSIDE RECORDS SUMMARY | 2025-01-14 15:41 | XMS_ITS | Encounter Summary ---
Author Organization [employer] Address [address] [place] [address] [address] [place] [address] Care Team Providers Care Promotion Writer Name Role Phone Chato Thoamson MD Primary Care Provider [phone] Reason for Referral * Consultation (Routine) - Closed Specialty Diagnoses / Procedures Referred By Contto singh Referred To Contact Dermatology Diagnoses Spongiotic dermatitis Chato Thomason MD [address] [place] [address] Phone: tel: fax: Gail Srinivasan [address] [place] [address] Phone: tel: fax: Referral ID Status Reason Start Date Expiration Date V isits Requested Visits Authorized [id number] Closed Specialty Services Required 08/25/2024 08/25/2025 1 1 Encounter Details Date Type Department Care Team ([facility] Contact Info) Description 08/24/2024 Orders Only [facility] CH[facility] MED & PEDS [address] [place], [place] [phone] Chato Thomason MD [address] [place], [place] [phone] Spongiotic dermatitis (Primary Dx) Social History Tobacco [...] Info) Description 01/24/2025 9:00 AM EDT Telemedicine [facility] MEDICINE [address] [place], [place] [phone] 02/11/2025 10:00 AM EDT Office Visit [facility] ADULT DENTAL [address] [place] [address] Sal Gordon DDS [address] [place] [address] 2025 11:00 AM EDT Telemedicine [facility] MED & PEDS [address] [place] [address] Linda Pelaez RN 505 [place] [address] 04/19/2025 2:00 PM EDT Office Visit [facility] MED & PEDS [address] [place] [address] Chato Thomason MD [address] [place] [address] Scheduled Referrals Name Type Priority Associated Diagnoses Order Schedule Referral to Dermatology Outpatient Referral Routine Spongiotic dermatitis Expected: 08/25/2024 (Approximate), Expires: 08/25/2025 documented as of this encounter Visit Diagnoses Diagnosis Spongiotic dermatitis- Primary Contact dermatitis and other eczema, due to unspecified cause documented in this encounter Additional Health Concerns Assessment Noted Time PHQ-9 Depression Total Score: 19 024 3:44 PM EDT documented as of this encounter Care Teams Promotion Writer Relationship Specialty Start Date End Date Chato Thomason MD [address] [place] [address] PCP - General Internal Medicine 10/27/18 Mackenzie Roland Locomotive Switch Operator 07/09/24 Angela Pozo Locomotive Switch Operator 07/09/24 [facility] 06/12/23 documented as of this encounter
--- OUTSIDE RECORDS SUMMARY | 2025-01-14 15:41 | XMS_ITS | Encounter Summary ---
Author Organization [employer] Address [address] [facility] 7t [place] [address] Care Team Providers Care Mechanical Spreader Operator Name Role Phone Chato Thomason MD Primary Care Provider [phone] Encounter Details Date Type Department Care Team ([facility] st Contact Info) Description 08/05/[address] [facility] CH[facility] MED & PEDS [address] [place], [place] [phone] Provider, MD Colleen Social History Tobacco Use Types Packs/Day Years Used Date Smoking Tobacco: Former Cigarettes 1 8 - 2022 Passive Smoke Exposure: [...] AM EDT Telemedicine [facility] [address] [place] [address] 02/11/2025 10:00 AM EDT Office Visit [facility] ADULT DENTAL [address] [place] [address] Sal Gordon DDS [address] [place] [address] 2025 11:00 AM EDT Telemedicine [facility] MED & PEDS [address] [place] [address] Linda Pelaez, RN 505 [place] [address] 04/19/2025 2:00 PM EDT Office Visit [facility] MED & PEDS [address] [place] [address] Chato Thomason MD [address] [place] [address] documented as of this encounter Procedures Procedure Name Priority Date/Time Associated Diagnosis Comments FL MODIFIED BARIUM SWALLOW Routine 08/05/2024 3:23 PM EDT documented in this encounter Results * FL MODIFIED BARIUM SWALLOW (08/05/2024 3:23 PM EDT) Anatomical Region Laterality Modality Radiographic Saundra ging us Historical Provider MD JEAN FLUOROSCOPY PROCEDURE S Final Result documented in this encounter Visit Diagnoses Not on filedocumented in this encounter Additional Health Concerns Assessment Noted Time PHQ-9 Depression Total Score: 19 024 3:44 PM EDT documented as of this encounter Care Teams Mechanical Spreader Operator Relationship Specialty Start Date End Date Chato Thomason MD [address] [place] [address] PCP - General Internal Medicine 10/27/18 Mackenzie Roland Cutting Room Supervisor 07/09/24 Angela Pozo Cutting Room Supervisor 07/09/24 [facility] 06/12/23 documented as of this encounter
--- OUTSIDE RECORDS SUMMARY | 2025-01-14 15:41 | XMS_ITS ---
Author Organization [employer] Address [address] [place] [address] [address] [address] Care Team Providers Care Com Writer Name Role Phone Chato Thomason MD Primary Care Provider [phone] [facility] Complex Status:Outreach In Progress (Enrolling) Start date:01/12/2025 Enrollment reason:ADT Feed Overview ADT- Pt admitted to [facility] on 01/11. Case Team Name Relationship Phone Josephine Block (Responsible Staff) Continued Care and Services Coordination
--- OUTSIDE RECORDS SUMMARY | 2025-01-14 15:41 | XMS_ITS | Encounter Summary ---
Author Organization [employer] Address [address] [facility] 7 [place] [address] Care Team Providers Care Drawer Hardware Worker Name Role Phone Chato Thomason MD Primary Care Provider [phone] Reason for Visit * Reason Onset Date Comments Referral 11/30/2024 Medication Question 11/30/2024 Encounter Details Date Type Department Care Team ([facility] st Contact Info) Description 11/30/2024 Telephone [facility] MEDICINE [address] [place] [address] Chato Thomason MD [address] [place] [address] Referral; Medication Question Social History Tobacco Use Types [...] Telephone Encounter - Reuben Edward - 11/30/2024 8:21 AM EST TC from pt mom stating that they have been using medication gabapentin (Neurontin) 250 MG/5ML solution But it is not working how they would like. Mom is requesting for a referral to a Foot doctor because of the Pain that the pt is in. Contact pt at [phone] documented in this encounter Plan of Treatment Upcoming Encounters Date Type Department Care Team (Late st Contact Info) Description 01/24/2025 9:00 AM EDT Telemedicine [facility] MEDICINE [address] [place], [place] [phone] 02/11/2025 10:00 AM EDT Office Visit [facility] ADULT DENTAL [address] [place] [address] Sal Gordon DDS [address] [place] [address] 2025 11:00 AM EDT Telemedicine [facility] MED & PED[facility] [address] [place] [address] Linda Pelaez RN [address] [place] [address] 04/19/2025 2:00 PM EDT Office Visit [facility] MED & PEDS [address] [place] [address] Chato Thomason MD [address] [place] [address] documented as of this encounter Visit Diagnoses Not on filedocumented in this encounter Additional Health Concerns Assessment Noted Time PHQ-9 Depression Total Score: 19 024 3:44 PM EDT documented as of this encounter Care Teams Drawer Hardware Worker Relationship Specialty Start Date End Date Chato Thomason MD [address] [place] [address] PCP - General Internal Medicine 10/27/18 Mackenzie Roland Market Investigator 07/09/24 Angela Pozo Market Investigator 07/09/24 [facility] 06/12/23 documented as of this encounter
--- OUTSIDE RECORDS SUMMARY | 2025-01-14 15:41 | XMS_ITS | Encounter Summary ---
Author Organization [employer] Address [address] [place] [address] 7t [place] [address] Care Team Providers Care Accounting Teacher Name Role Phone Chato Thomason MD Primary Care Provider [phone] Encounter Details Date Type Department Care Team ([facility] st Contact Info) Description 12/02/2024 Orders Only [facility] CHC MED & PEDS [address] [place], [place] [phone] Chato Thomason MD [address] [place] [address] Neuropathic pain Social History Tobacco Use Types [...] Info) Description 01/24/2025 9:00 AM EDT Telemedicine [facility] MEDICINE [address] [place] [address] 02/11/2025 10:00 AM EDT Office Visit [facility] ADULT DENTAL [address] [place] [address] Sal Gordon DDS [address] [place] [address] 2025 11:00 AM EDT Telemedicine [facility] MED & PEDS [address] [place] [address] Linda Pelaez RN 505 [place] [address] 04/19/2025 2:00 PM EDT Office Visit [facility] MED & PEDS [address] [place] [address] Chato Thomason MD [address] [place] [address] documented as of this encounter Visit Diagnoses Diagnosis Neuropathic pain documented in this encounter Additional Health Concerns Assessment Noted Time PHQ-9 Depression Total Score: 19 024 3:44 PM EDT documented as of this encounter Care Teams Accounting Teacher Relationship Specialty Start Date End Date Chato Thomason MD [address] [place] [address] PCP - General Internal Medicine 10/27/18 Mackenzie Roland [employer] 07/09/24 Angela Pozo [employer] 07/09/24 [facility] 06/12/23 documented as of this encounter
--- OUTSIDE RECORDS SUMMARY | 2025-01-14 15:41 | XMS_ITS | Encounter Summary ---
Author Organization [employer] Address [address] [place] [address] 7 [place] [address] Care Team Providers Care Tax Services Manager Name Role Phone Chato Thomason MD Primary Care Provider [phone] Reason for Visit * Reason Comments Med Refill Encounter Details Date Type Department Care Team ([facility] st Contact Info) Description 11/30/2024 Refill [facility] CH[facility] MED & PEDS [address] [place], [place] [phone] Chato Thomason MD [address] [place] [address] Other insomnia; Anxiety; Anxiety; Squamous cell carcinoma of larynx (CMS/HCC) [...] encounter Miscellaneous Notes * Telephone Encounter - Chato Thomason MD - 12/02/2024 12:59 PM EST Patient's mother was called: 1) we clarify multiple pillows including a wedge pillow have been used at home in patient's bed. Heis still unable to sleep and cannot find a comfortable position with his tracheostomy in place. He has been waking up at night in need to aspirate because he feels like he is choking. 2) patient's mother reports that he is still experiencing burning sensation of the feet bilaterallydespite being on gabapentin 500 mg 3 times a day. We will do a trial of 650 mg 3 times a day and sugeywill try to get feedback in 2 to 3 weeks on the outcome. documented in this encounter Plan of Treatment Upcoming Encounters Date Type Department Care Team (Late st Contact Info) Description 01/24/2025 9:00 AM EDT Telemedicine [address] [phone] 02/11/2025 10:00 AM EDT Office Visit [facility] ADULT DENTAL [address] [place] [address] Sal Gordon DDS [address] [place] [address] 2025 11:00 AM EDT Telemedicine [facility] MED & PEDS [address] [place] [address] Linda Pelaez RN [address] [place] [address] 04/19/2025 2:00 PM EDT Office Visit [facility] MED & PEDS [address] [place] [address] Chato Thomason MD [address] [place] [address] documented as of this encounter Visit Diagnoses Diagnosis Other insomnia Anxiety Anxiety state, unspecified Squamous cell carcinoma of larynx (CMS/HCC) Malignant neoplasm of larynx, unspecified site documented in this encounter Additional Health Concerns Assessment Noted Time PHQ-9 Depression Total Score: 19 024 3:44 PM EDT documented as of this encounter Care Teams Tax Services Manager Relationship Specialty Start Date End Date Chato Thomason MD [address] [place] [address] PCP - General Internal Medicine 10/27/18 Mackenzie Roland Division Traffic Superintendent 07/09/24 Angela Pozo Division Traffic Superintendent 07/09/24 [facility] 06/12/23 documented as of this encounter
--- OUTSIDE RECORDS SUMMARY | 2025-01-14 15:41 | XMS_ITS | Encounter Summary ---
Author Organization [employer] Address [address] [facility] 7 [place] [address] Care Team Providers Care Supervisor Wet Pour Name Role Phone Chato Thomason MD Primary Care Provider [phone] Reason for Visit * Reason Onset Date Comments Call Back Request 07/26/2024 Encounter Details Date Type Department Care Team ([facility] st Contact Info) Description 07/26/2024 Telephone [facility] MEDICINE [address] [place], [place] [phone] Chato Thomason MD [address] [place] [address] Call Back Request Social History Tobacco Use [...] * Telephone Encounter - Familia Preston - 07/26/2024 1:57 PM EDT Tc from Mackenzie with [facility] requesting status on referral for [facility] health stating it was discussedduring last visit. Please contact Mackenzie at [phone]. documented in this encounter Plan of Treatment Upcoming Encounters Date Type Department Care Team (Late st Contact Info) Description 01/24/2025 9:00 AM EDT Telemedicine [facility] MEDICINE [address] [place] [address] 02/11/2025 10:00 AM EDT Office Visit [facility] ADULT DENTAL [address] [place] [address] Sal Gordon DDS [address] [place] [address] 2025 11:00 AM EDT Telemedicine [facility] CH[facility] MED & PEDS [address] [place] [address] Linda Pelaez, WALT [address] [place] [address] 04/19/2025 2:00 PM EDT Office Visit [facility] MED & PEDS [address] [place] [address] Chato Thomason MD [address] [place] [address] documented as of this encounter Visit Diagnoses Not on filedocumented in this encounter Care Teams Supervisor Wet Pour Relationship Specialty Start Date End Date Chato Thomason MD [address] [place] [address] PCP - General Internal Medicine 10/27/18 Mackenzie Roland Automobile Tester 07/09/24 Angela Pozo Automobile Tester 07/09/24 [facility] 06/12/23 documented as of this encounter
--- OUTSIDE RECORDS SUMMARY | 2025-01-14 15:41 | XMS_ITS | Encounter Summary ---
Author Organization [facility] Address [address] [place] [address] Care Team Providers Care Tar Leveler Name Role Phone Physician, No Pcp Primary Care Provider Unavaila ble Reason for Visit * Consultation (Routine) - Authorized Specialty Diagnoses / Procedures Referred By Maryana singh Referred To Contact Occupational Therapy Diagnoses Lymphedema Chato Thomason MD [address] [place], [place] Phone: tel: fax: [facility] Occupational Therapy [address] [place] [phone] Phone: tel: fax: Referral ID Status Reason Start Date Expiration Date Visits Requested Visits Authorized [id number] Authorized Specialty Services Required 10/07/2025 17 17 Encounter Details Date Type Department Care Team (Late st Contact Info) Description 12/30/2024 1:00 PM EST Treatment [facility] Occupational Therapy [address] [place] [phone] Nilam Botello, OTR/L Lymphatic edema (Primary Dx) Social History Tobacco Use Types Packs/Day Years Used Date Smoking Tobacco: Never Assessed Sex and Gender Information Value Date Recorded Sex Assigned at Not on file Legal Sex Male 8:43 PM EST Gender Identity Not on file Sexual Orientation Not on file documented as of this encounter Progress Notes * Nilam Botello OTR/L - 12/30/2024 1:00 PM EST [facility] - Outpatient OCCUPATIONAL THERAPY progress Date: 12/30/2024 Visit Number: [id number] Patient Name: Lawrence Childers : 1965 Age: 59 y.o. Gender: male Diagnosis: ICD-10-CM ICD-9-CM 1. Lymphatic edema I89.0 457.1 Date of Onset: 09/22/2024 Referring Provider: Chato Thomason MD Insurance: Pay[place] / Plan[place] / Product Type: *No Product type* / Patient identified by: Nilam Botello, OTR/L Language: uses electronic speaking device ( vibration ) Allergies: has no allergies on file. Precautions: Neck breather SUBJECTIVE Subjective Report: I cannot use the compression things that I got because it covers my stoma Pain: No pain OBJECTIVE Patient presents with new onset of fibrosis/ lymph edema in his cheeks Measurements: Right Left Distance from tragus to corner of eye 7.5 cm 7.5 cm Distance from tragus to naso-labial fold 12.5 cm 12.5 cm Distance from tragus to corner of mouth 12 cm 11.5 cm Circumference neck at 10 cm inferior to tragus ( superior to stoma) 40 cm Circumference of head at 10 cm inferior to bottom lip =63 cm Circumferene of head at 8 cm inferior to bottom of lip = 64 cm TREATMENT INTERVENTION Procedures: Manual therapy: Performed MLD according to Dr. Montes method, Performed neck routine/ part of face and nape of neck routine Increased lymph flow through both axilla's/ B intercostals and B paraspinals Used increased manual technique to address soft fibrosis right side of face/ sub mandible area Soft tissue work to address tight tissue in right side of neck /face Self care; Reassessed size / consistancy of tissue in face and neck Assessed patient for [place] face compression garment Patient to fit into medium coverage face mask with no neck ( style FM 300-A) Provided patient and patient's mom with info about how to obtain this garment Pain Reassessment: no pain Assessment/Response To Treatment: Good Patient receptive to suggested compression garment Patient Education: Education provided: Yes compression garment and POC Education Provided To: Patient/mother utilizing Explanation and Demonstration mode(s) of education Response to Education: Good PLAN POC Development/Review: Other: will f/u with patient in 2 weeks to allow patient to acquire suggested garment ; Participants: Patient and Parent Equipment Recommended: Mareno medium coverage face mask with no neck ; Equipment Provided: none GOALS Goals Addressed This Visit's Progress for the swelling to go away (pt-stated) improve posture Improving STG: Patient will be able to demo 3 exercises to improve neck extension and chin tuck 10/11 goal has been met; patient is able to demo 3 exercises LTG: Patient will present with increased posture and he will have active neck extension 2024 Patient is independent in HEP and demo increased neck extension of about 15 degrees lymph edema/ fibrosis No change STG Patient will present with decreased fibrosis in submandibular area 10/11 decreased fibrosis LTG patient will present with decreased palpable / visible and measurable lymph edema in head/ neck 12/30 2024 patient presents with decreased visible and palpable lymph edema in neck however developed fibrosis. Lymph edema in his cheeks self management Improving STG ; patient will be able do demo HEP to increase lymph flow Patient will be able to demo self massage 10/11 progressing ; needs review for self massage 12/30 has been instructed in self massage LTG Patient will be independent in lymph edema management ( compression / self massage and HEP) andthere will be no increase in symptoms when not seen by this therapist for at least 2 weeks 12/30 Patient presents with increased fibrosis / lymph edema in both cheeks Goal not met; ongoing Total Treatment Time: 60 minutes Documentation completed by CHICA Aguirre/Esther documented in this encounter Plan of Treatment Upcoming Encounters Date Type Department Care Team (Late st Contact Info) Description 01/25/2025 12:30 PM EDT Treatment [facility] Occupational Therapy [address] [place] [phone] Nilam Botello OTR/Esther documented as of this encounter Goals Goal Patient Goal Type Associated Problems Recent Progress Patient-Stated? Author for the swelling to go away General Improving( 4:36 PM EST) Yes Gijzen, Nilam P, OTR/L lymph edema/ fibrosis General No [...] as of this encounter Visit Diagnoses Diagnosis Lymphatic edema- Primary Other noninfectious lymphedema documented in this encounter Care Teams Tar Leveler Relationship Specialty Start Date End Date Physician, No Pcp PCP - General 09/22/24 documented as of this encounter
--- OUTSIDE RECORDS SUMMARY | 2025-01-14 15:41 | XMS_ITS | Encounter Summary ---
Author Organization [facility] Address [address] [place] [address] Care Team Providers Care Boomboat Operator Name Role Phone Physician, No Pcp Primary Care Provider Unavaila ble Reason for Visit * Consultation (Routine) - Authorized Specialty Diagnoses / Procedures Referred By Maryana singh Referred To Contact Occupational Therapy Diagnoses Lymphedema Chato Thomason MD [address] [place], [place] Phone: tel: fax: [facility] Occupational Therapy [address] [place] [phone] Phone: tel: fax: Referral ID Status Reason Start Date Expiration Date Visits Requested Visits Authorized [id number] Authorized Specialty Services Required 10/07/2025 17 17 Encounter Details Date Type Department Care Team (Late st Contact Info) Description 12/21/2024 12:30 PM EST Treatment [facility] Occupational Therapy [address] [place] [phone] Nilam Botello, OTR/L Lymphedema of face (Primary Dx) Social History Tobacco Use Types Packs/Day Years Used Date Smoking Tobacco: Never Assessed Sex and Gender Information Value Date Recorded Sex Assigned at Not on file Legal Sex Male 8:43 PM EST Gender Identity Not on file Sexual Orientation Not on file documented as of this encounter Progress Notes * Nilam Botello OTR/Esther - 12/21/2024 12:30 PM EST [facility] - Outpatient OCCUPATIONAL THERAPY DAILY TREATMENT NOTE Date: 12/21/2024 Visit Number: [id number] Patient Name: Lawrence Childers : 1965 Age: 59 y.o. Gender: male Diagnosis: ICD-10-CM ICD-9-CM 1. Lymphedema of face I89.0 457.1 Date of Onset: 09/22/2024 Referring Provider: Chato Thomason MD Insurance: [place] / Product Type: *No Product type* / Patient identified by: CHICA Aguirre/Esther Language: patient uses device to speak Allergies: has no allergies on file. Precautions: Neck breather SUBJECTIVE Subjective Report: Pain: Patient reports no pain OBJECTIVE Patient presents with visible and palpable edema in right sub mandible area TREATMENT INTERVENTION Procedures: Manual therapy: Performed MLD [...] flex and extension ) Pain Reassessment: no pain Assessment/Response To Treatment: Good Patient is receptive to treatment and gives therapy thumbs Up at end of session Patient Education: Education provided: Yes self massage / HEP Education Provided To: Patient utilizing Explanation and Demonstration mode(s) of education Response to Education: Good PLAN POC Development/Review: No Change in the Plan of Care; Participants: Patient Equipment Recommended: none; Equipment Provided: none GOALS Patient receptive to POC / HEP Continues with palpable edema right sub mandible area unable to wear compression garment as he is aneck breather and it obstructs his ability to breathe Total Treatment Time: 60 Documentation completed by CHICA Aguirre/Esther documented in this encounter Plan of Treatment Upcoming Encounters Date Type Department Care Team (Late st Contact Info) Description 01/25/2025 12:30 PM EDT Treatment [facility] Occupational Therapy [address] [phone] Nilam Botello, OTR/L documented as of this encounter Goals Goal Patient Goal Type Associated Problems Recent Progress Patient-Stated? Author for the swelling to go away General Improving( 4:36 PM EST) Yes Nilam Botello, OTR/L lymph edema/ fibrosis General No change(12/30 6:12 PM EST) No Nilam Botello, OTR/L Note: STG Patient will present with decreased fibrosis in submandibular area 10/11 decreased fibrosis LTG patient will present with decreased palpable / visible and measurable lymph edema in head/ neck 12/30 2024 patient presents with decreased visible and palpable lymph edema in neck however developed fibrosis. Lymph edema in his cheeks self management General Improving( 6:11 PM EST) No Nilam Botello, OTR/L Note: STG ; patient will be [...] Primary documented in this encounter Care Teams Boomboat Operator Relationship Specialty Start Date End Date Physician, No Pcp PCP - General 09/22/24 documented as of this encounter
--- OUTSIDE RECORDS SUMMARY | 2025-01-14 15:41 | XMS_ITS | Encounter Summary ---
Author Organization [employer] Address [address] [facility] 7 [place] [address] Care Team Providers Care Arboriculturist Name Role Phone Chato Thomason MD Primary Care Provider [phone] Reason for Visit * Reason Onset Date Comments Referral 08/05/2024 Encounter Details Date Type Department Care Team ([facility] Contact Info) Description 08/05/2024 Telephone [facility] CHC MED & PEDS [address] [place], [place] [phone] Chato Thomason MD [address] [place] [address] Referral Social History Tobacco Use Types Packs/Day [...] encounter Miscellaneous Notes * Telephone Encounter - Makeda Khan - 08/05/2024 2:55 PM EDT referral generated and faxed to Dr. Srinivasan office. * Telephone Encounter - Anastacia Bill - 08/05/2024 1:53 PM EDT Tc from pt mother requesting to re new referral to Location: [facility] Address: [address] [place] [address] [place] [address] documented in this encounter Plan of Treatment Upcoming Encounters Date Type Department Care Team (Late st Contact Info) Description 01/24/2025 9:00 AM EDT Telemedicine [facility] MEDICINE [address] [place], [place] [phone] 02/11/2025 10:00 AM EDT Office Visit [facility] ADULT DENTAL [address] [place], [place] [phone] Sal Gordon DDS [address] [place], [place] [phone] 11:00 AM EDT Telemedicine [facility] MED & PEDS [address] [place] [address] Linda Pelaez RN [address] [place] [address] 04/19/2025 2:00 PM EDT Office Visit [facility] MED & PEDS [address] [place] [address] Chato Thomason MD [address] [place] [address] documented as of this encounter Visit Diagnoses Not on filedocumented in this encounter Additional Health Concerns Assessment Noted Time PHQ-9 Depression Total Score: 19 024 3:44 PM EDT documented as of this encounter Care Teams Arboriculturist Relationship Specialty Start Date End Date Chato Thomason MD [address] [place] [address] PCP - General Internal Medicine 10/27/18 Mackenzie Roland Motor Electrician 07/09/24 Angela Pozo Motor Electrician 07/09/24 [facility] 06/12/23 documented as of this encounter
--- OUTSIDE RECORDS SUMMARY | 2025-01-14 15:41 | XMS_ITS | Encounter Summary ---
Author Organization [employer] Address [address] [facility] 7 [place] [address] Care Team Providers Care Online Communications Manager Name Role Phone Chato Thomason MD Primary Care Provider [phone]- [phone] Reason for Visit * Reason Onset Date Comments Med Refill 09/13/2024 Encounter Details Date Type Department Care Team ([facility] st Contact Info) Description 09/13/2024 Telephone [facility] MEDICINE [address] [place] [address] Chato Thomason MD [address] [place] [address] Med Refill Social History Tobacco Use Types [...] * Telephone Encounter - Reuben Edward - 09/13/2024 8:28 AM EST TC from pt requesting medication refill. Medications needing refill : LORazepam (Ativan) 1 MG tablet oxyCODONE (Roxicodone) 5 MG immediate release tablet To be sent to: [id number] [facility] documented in this encounter Plan of Treatment Upcoming Encounters Date Type Department Care Team ([facility] st Contact Info) Description 01/24/2025 9:00 AM EDT Telemedicine [facility] MEDICINE [address] [place] [address] 02/11/2025 10:00 AM EDT Office Visit [facility] ADULT DENTAL [address] [place] [address] Sal Gordon DDS [address] [place] [address] 2025 11:00 AM EDT Telemedicine [facility] CHC MED & PEDS [address] [place] [address] Linda Pelaez, WALT [address] [place] [address] 04/19/2025 2:00 PM EDT Office Visit [facility] CHC MED & PEDS [address] [place] [address] Chato Thomason MD [address] [place] [address] documented as of this encounter Visit Diagnoses Not on filedocumented in this encounter Additional Health Concerns Assessment Noted Time PHQ-9 Depression Total Score: 19 024 3:44 PM EDT documented as of this encounter Care Teams Online Communications Manager Relationship Specialty Start Date End Date Chato Thomason MD [address] [place] [address] PCP - General Internal Medicine 10/27/18 Mackenzie Roland Management Coordinator 07/09/24 Angela Pozo Management Coordinator 07/09/24 [facility] 06/12/23 documented as of this encounter
--- OUTSIDE RECORDS SUMMARY | 2025-01-14 15:41 | XMS_ITS ---
Author Organization [employer] Address [address] [place] [address] 7 [place] [address] Care Team Providers Care Operational Risk Analyst Name Role Phone Chato Thomason MD Primary Care Provider [phone]- [phone] CM Complex Status:Outreach In Progress (Enrolling) Start date:01/12/2025 Enrollment reason:ADT Feed Overview ADT- Pt admitted to [facility] on 01/11. Case Team Name Relationship Phone Alisha Sheehan RN Registered Nurse(Responsible S taff) Continued Care and Services Coordination
== END 2025-01-14 13:57 | disposition home or self-care (01) ==
LOC: HO.PMC 13:17
PROVIDERS: PCP Internal Medicine; Referring Provider Internal Medicine; Visit Provider Registered Nurse Emergency
DX: G89.4 Chronic pain syndrome (principal); R07.89 Other chest pain; M54.2 Cervicalgia; G89.28 Other chronic postprocedural pain; G62.9 Polyneuropathy, unspecified; M54.16 Radiculopathy, lumbar region
CPT/HCPCS: 99204

== ENCOUNTER → 2025-01-14 13:16 | Outpatient (BNVA) | payer MEDICAID, SELFPAY | PROVIDERS: PCP Internal Medicine; Referring Provider Internal Medicine; Visit Provider Registered Nurse Emergency | DX: M54.16 Radiculopathy, lumbar region (principal); G62.9 Polyneuropathy, unspecified; R07.89 Other chest pain; M54.2 Cervicalgia; G89.28 Other chronic postprocedural pain; G89.4 Chronic pain syndrome | CPT/HCPCS: 99212 ==

== ENCOUNTER 2025-02-23 08:49 | Outpatient (REF) | payer MEDICAID, SELFPAY ==
--- NOTE | 2025-02-23 08:51 | EMG_ITS ---
Chief complaint: Chronic pain syndrome, paresthesias in both feet History of stomal stenosis, has tracheostomy, able to communicate. Reason for referral: Evaluate for neuropathy versus radiculopathy Referred by: Kerrie TOLEDO Procedure done: bilateral lower extremity NCS/EMG Precautions and/or limitations: None The limb temperature was monitored continuously and remained between 32-36 degrees C during the performance of the NCS. Nerve Conduction Studies Anti Sensory Summary Table ?Stim Site NR Onset (ms) Norm Onset (ms) Peak (ms) Norm Peak (ms) O-P Amp (?V) Norm O-P Amp Site1 Site2 Delta-0 (ms) Dist (cm) Scott (m/s) Norm Scott (m/s) Left Sural Anti Sensory (Lat Mall) Calf NR <4.0 >5.0 Calf Lat Mall 14.0 Right Sural Anti Sensory (Lat Mall) Calf NR <4.0 >5.0 Motor Summary Table ?Stim Site NR Onset (ms) Norm Onset (ms) O-P Amp (mV) Norm O-P Amp iAmp (mV) Amp (1st) (%) Site1 Site2 Delta-0 (ms) Dist (cm) Scott (m/s) Norm Scott (m/s) Right Peroneal Motor (Ext Dig Brev) Ankle NR <4.0 >2.5 Ankle Ext Dig Brev 0.0 B Fib NR B Fib Ankle 0.0 >40 Poplt NR Poplt B Fib 0.0 >40 Left Tibial Motor (Abd Kelly Brev) Ankle ? 4.2 <5 1.8 >2.5 2.2 100.0 Ankle Abd Kelly Brev 4.2 0.0 Knee ? 15.1 2.3 3.0 127.8 Knee Ankle 10.9 40.0 37 >40 Right Tibial Motor (Abd Kelly Brev) Ankle ? 7.6 <5 0.7 >2.5 0.8 100.0 Ankle Abd Kelly Brev 7.6 0.0 Knee ? 19.3 0.3 0.4 42.9 Knee Ankle 11.7 40.0 34 >40 EMG ?Side Muscle Nerve Root Ins Act Fibs Psw Amp Dur Poly Recrt Int Pat Comment Right AbdHallucis MedPlantar S1-2 Nml Nml Nml Nml Nml 0 Nml Complete Right AntTibialis Dp Br Peron L4-5 Nml Nml Nml Nml Nml 0 Nml Complete Right PostTibialis Tibial L5, S1 Nml Nml Nml Nml Nml 0 Nml Complete Right MedGastroc Tibial S1-2 Nml Nml Nml Nml Nml 0 Nml Complete Right VastusMed Femoral L2-4 Nml Nml Nml Nml Nml 0 Nml Complete Left AbdHallucis MedPlantar S1-2 Nml Nml Nml Nml Nml 0 Nml Complete Left AntTibialis Dp Br Peron L4-5 Nml Nml Nml Nml Nml 0 Nml Complete Left PostTibialis Tibial L5, S1 Nml Nml Nml Nml Nml 0 Nml Complete Left MedGastroc Tibial S1-2 Nml Nml Nml Nml Nml 0 Nml Complete Left VastusMed Femoral L2-4 Nml Nml Nml Nml Nml 0 Nml Complete FINDINGS: Right peroneal nerve showed absent response. Right tibial nerve showed very small amplitudes, with mildly prolonged distal latency and slow conduction velocity. Left tibial nerve showed normal distal latency, small amplitude and slow conduction velocity. Bilateral sural nerves showed absent response. Concentric needle EMG was performed in selected muscles of the bilateral lower extremity. Study did not reveal signs of electric abnormalities as shown in the table above. IMPRESSION: 1. This is an abnormal study. 2. 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 3. There is no electrodiagnostic evidence for lumbosacral plexopathy, or lumbar radiculopathy. Thank you for your kind referral. Marizol Carroll MD, MARK Board Certified, [place] Board [employer] and Rehabilitation (ABPMR) Board Certified, [place] Board of Electrodiagnostic Medicine (ABEM) CODIN 13771 x 2 MTDD
--- OUTSIDE RECORDS SUMMARY | 2025-02-23 09:11 | XMS_ITS ---
Author Organization [employer] Address [address] [place] [address] [facility] [place] [address] Care Team Providers Care Mushroom Cultivator Name Role Phone Chato Thomason MD Primary Care Provider [phone] CHW Complex Status:Outreach In Progress (Enrolling) Start date:01/12/2025 Enrollment reason:ADT Feed Overview ADT- Pt admitted to [facility] on 01/11. Case Team Name Relationship Phone Josephine Block (Responsible Staff) Continued Care and Services Coordination
--- OUTSIDE RECORDS SUMMARY | 2025-02-23 09:11 | XMS_ITS | Encounter Summary ---
Author Organization [facility] [employer] Address [address] [place] [address] Care Team Providers Care Manager Of Hospital Name Role Phone Chato Thomason MD Primary Care Provider [phone] Reason for Referral * Consultation (Routine) - Closed Specialty Diagnoses / Procedures Referred By Contac t Referred To Contact Pain Medicine Diagnoses Squamous cell carcinoma of larynx (CMS/HCC) Dysphagia, unspecified type Chato Thomason MD [address] [place] [address] Phone: tel: fax: Moe Luna MD [address] [place] [address] [place] [phone] Phone: tel: fax: Referral ID Status Reason Start Date Expiration Date V isits Requested Visits Authorized [id number] Closed Specialty Services Required 12/20/2024 12/20/2025 1 1 Encounter Details Date Type Department Care Team (Late st Contact Info) Description 12/20/2024 Orders Only [facility] MEDICINE [address] [place] [address] Chato Thomason MD [address] [place], [place] [phone] Squamous cell carcinoma of larynx (CMS/HCC) (Primary [...] Upcoming Encounters Date Type Department Care Team ([facility] st Contact Info) Description 2025 11:00 AM EDT Telemedicine [facility] MED & PEDS [address] [place] [address] Linda Pelaez, RN [address] [place] [address] 04/19/2025 2:00 PM EDT Office Visit [facility] CHC MED & PEDS [address] [place] [address] Chato Thomason MD [address] [place] [address] Scheduled Referrals Name Type Priority Associated Diagnoses [...] documented as of this encounter Care Teams Manager Of Hospital Relationship Specialty Start Date End Date Chato Thomason MD [address] [place] [address] PCP - General Internal Medicine 10/27/18 Mackenzie Roland Station Repairer 07/09/24 Angela Pozo Station Repairer 07/09/24 [facility] 06/12/23 documented as of this encounter
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
--- OUTSIDE RECORDS SUMMARY | 2025-02-23 09:11 | XMS_ITS | Encounter Summary ---
Author Organization [employer] Address [address] [facility] 7 [place] [address] Care Team Providers Care Bindery Helper Name Role Phone Chato Thomason MD Primary Care Provider [phone] Reason for Visit * Reason Onset Date Comments PT1 12/28/2024 Encounter Details Date Type Department Care Team ([facility] st Contact Info) Description 12/28/2024 Telephone [facility] MEDICINE [address] [place], [place] [phone] Chato Thomason MD [address] [place] [address] PT1 Social History Tobacco Use Types Packs/Day [...] Y/N: Yes Provider name or facility name: [address] [place] [address] [place] [address] - Pain Management Escort needed: Y/N: Yes Do you have a wheelchair: Y/N: No If yes- Manual or electric: N/A Visits: (2x monthly) documented in this encounter Plan of Treatment Upcoming Encounters Date Type Department Care Team ([facility] st Contact Info) Description 2025 11:00 AM EDT Telemedicine [facility] [address] [place] [address] Linda Pelaez, WALT [address] [place] [address] 04/19/2025 2:00 PM EDT Office Visit [facility] [address] [place] [address] Chato Thomason MD [address] [place] [address] documented as of this encounter Visit Diagnoses Not on filedocumented in this encounter Additional Health Concerns Assessment Noted Time PHQ-9 Depression Total Score: 19 024 3:44 PM EDT documented as of this encounter Care Teams Bindery Helper Relationship Specialty Start Date End Date Chato Thomason MD [address] [place] [address] PCP - General Internal Medicine 10/27/18 Mackenzie Roland Boat Oar Maker 07/09/24 Angela Pozo Boat Oar Maker 07/09/24 [facility] 06/12/23 documented as of this encounter
--- OUTSIDE RECORDS SUMMARY | 2025-02-23 09:11 | XMS_ITS | Encounter Summary ---
Author Organization [employer] Address [address] [facility] 7 [place] [address] Care Team Providers Care Client Integration Manager Name Role Phone Chato Thomason MD Primary Care Provider [phone] Kelsey Minaya Unavailable Unavailable Reason for Visit * Reason Onset Date Comments Referral 03/27/2023 Encounter Details Date Type Department Care Team ([facility] st Contact Info) Description 03/27/2023 Telephone [facility] MEDICINE [address] [place] [address] Chato Thomason MD [address] [place] [address] Referral Social History Tobacco Use Types Packs/Day [...] 03/27/2023 2:43 PM EDT Tc from [facility] requesting a referral. Date: 03/31/2023 Time: 10:15 AM Location: [address] [place] [address] Specialty: [facility] Hematology Oncology NPI Facility: [id number] Department: [id number] DX: Squamous cell Carcinoma of Epiglottis Phone #: [phone] Fax #: [phone] documented in this encounter Plan of Treatment Upcoming Encounters Date Type Department Care Team ([facility] st Contact Info) Description 2025 11:00 AM EDT Telemedicine [facility] MED & PEDS [address] [place] [address] Linda Pelaez RN [address] [place] [address] 04/19/2025 2:00 PM EDT Office Visit [facility] MED & PEDS [address] [place] [address] Chato Thomason MD [address] [place] [address] documented as of this encounter Visit Diagnoses Not on filedocumented in this encounter Care Teams Client Integration Manager Relationship Specialty Start Date End Date Chato Thomason MD [address] [place] [address] PCP - General Internal Medicine 10/27/18 Kelsey Minaya Community Health Worker 06/08/24 07/07/24 Eliane Metzger Complex Case ManagerHotel Server 01/29/24 07/08/24 Mackenzie Roland Complex Case Manager 07/09/24 Angela Pozo Complex Case Manager 07/09/24 [facility] 06/12/23 documented as of this encounter
--- OUTSIDE RECORDS SUMMARY | 2025-02-23 09:11 | XMS_ITS | Encounter Summary ---
Author Organization [employer] Address [address] [facility] 7t [place] [address] Care Team Providers Care Concrete Block Layer Name Role Phone Chato Thomason MD Primary Care Provider [phone] Kelsey Minaya Unavailable Unavailable Reason for Visit * Reason Onset Date Comments Hospital Follow-up 07/05/2024 Encounter Details Date Type Department Care Team ([facility] st Contact Info) Description 07/05/2024 Telephone [facility] MEDICINE [address] [place] [address] Chato Thomason MD [address] [place], [place] [phone] Hospital Follow-up Social History Tobacco Use Types [...] the ED. His personal phone number is [phone]. We agreed to have him contact one of our team nurseif he has a concern about Mr Lawrence Childers and to update us at [facility] regularly on Friday on what Mr Lawrence Childers needs are. Bo does think that Mr Lawrence Childers would be better taken care of at a [place] given the level of care he needs. * Telephone Encounter - Art Pena - 07/06/2024 12:12 PM EDT Tc from cayla with [facility] would like to PCP that they called crisis due to having suicidal ideation. Advised will leave message asd I. Please see previous message. Please contact at [phone] * Telephone Encounter - Ronaldo Larios - 07/05/2024 8:03 AM EDT Tc from pt requesting a HDF appt. Hospital: [facility] Date of admission: 06/26 Discharge date: 07/02 [...] [facility] [address] [place] [address] Linda Pelaez RN [address] [place] [address] 04/19/2025 2:00 PM EDT Office Visit [facility] MED & PEDS [address] [place] [address] Chato Thomason MD [address] [place] [address] documented as of this encounter Visit Diagnoses Not on filedocumented in this encounter Care Teams Concrete Block Layer Relationship Specialty Start Date End Date Chato Thomason MD [address] [place] [address] PCP - General Internal Medicine 10/27/18 Kelsey Minaya Community Health Worker 06/08/24 07/07/24 Eliane Metzger Transcribing Machine MechanicComputer Systems Consultant 01/29/24 07/08/24 Cayla Roland Transcribing Machine Mechanic 07/09/24 Angela Pozo Transcribing Machine Mechanic 07/09/24 [facility] 06/12/23 documented as of this encounter
--- OUTSIDE RECORDS SUMMARY | 2025-02-23 09:11 | XMS_ITS | Encounter Summary ---
Author Organization [employer] Address [address] [facility] 7t [place] [address] Care Team Providers Care Screen Stretcher Name Role Phone Chato Thomason MD Primary Care Provider [phone] Kelsey Minaya Unavailable Unavailable Reason for Visit * Reason Onset Date Comments Call Back Request 05/03/2024 Encounter Details Date Type Department Care Team ([facility] st Contact Info) Description 05/03/2024 Telephone [facility] MEDICINE [address] [place] [address] Chato Thomason MD [address] [place] [address] Call Back Request Social History Tobacco Use [...] encounter Miscellaneous Notes * Telephone Encounter - Familiamoni Preston - 05/03/2024 4:37 PM EDT Tc from Joyce with [facility] requesting call back to discuss new referral. Joyce stated carecoordination attempted to contact pt but he wasn't able to answer due to pt not being able to speak. Please contact Joyce at [phone]. documented in this encounter Plan of Treatment Upcoming Encounters Date Type Department Care Team (Late st Contact Info) Description 2025 11:00 AM EDT Telemedicine [facility] MED & PEDS [address] [place] [address] Linda Pelaez RN [address] [place] [address] 04/19/2025 2:00 PM EDT Office Visit [facility] MED & PEDS [address] [place] [address] Chato Thomason MD [address] [place] [address] documented as of this encounter Visit Diagnoses Not on filedocumented in this encounter Care Teams Screen Stretcher Relationship Specialty Start Date End Date Chato Thomason MD [address] [place] [address] PCP - General Internal Medicine 10/27/18 Kelsey Minaya Community Health Worker 06/08/24 07/07/24 Eliane Metzger Rope MakerPremium Auditor 01/29/24 07/08/24 Mackenzie Roland Rope Maker 07/09/24 Angela Pozo Rope Maker 07/09/24 [facility] 06/12/23 documented as of this encounter
--- OUTSIDE RECORDS SUMMARY | 2025-02-23 09:11 | XMS_ITS | Encounter Summary ---
Author Organization [employer] Address 75 [facility] 7t [place] [address] Care Team Providers Care Twisting Machine Operator Name Role Phone Chato Thomason MD Primary Care Provider [phone] Kelsey Minaya Unavailable Unavailable Encounter Details Date Type Department Care Team (Late st Contact Info) Description 06/25/2024 Orders Only [facility] MED & PEDS [address] [place], [place] [phone] ProviderColleen MD Social History Tobacco Use Types [...] Info) Description 2025 11:00 AM EDT Telemedicine [facility] MED & PEDS 505 [place] [address] Linda Pelaez, WALT 505 [place] [address] 04/19/2025 2:00 PM EDT Office Visit [facility] MED & PEDS 505 [place] [address] Chato Thomason MD 505 [place] [address] documented as of this encounter Procedures Procedure Name Priority Date/Time Associated Diagnosis Comments FL MODIFIED BARIUM SWALLOW W/ SPEECH Routine 06/24/2024 8:31 AM EDT documented in this encounter Results * Modified Barium Swallow W/ Speech (06/24/2024 8:31 AM EDT) Anatomical Region Laterality Modality Head, Neck Radiographic Saundra ging Historical Provider MD JEAN FLUOROSCOPY PROCEDURE S Final Result documented in this encounter Visit Diagnoses Not on filedocumented in this encounter Care Teams Twisting Machine Operator Relationship Specialty Start Date End Date Chato Thomason MD 505 [place] [address] PCP - General Internal Medicine 10/27/18 Kelsey Minaya Community Health Worker 06/08/24 07/07/24 Eliane Metzger Fireman HelperRides Supervisor 01/29/24 07/08/24 Mackenzie Roland Fireman Helper 07/09/24 Angela Pozo Fireman Helper 07/09/24 [facility] 06/12/23 documented as of this encounter
--- OUTSIDE RECORDS SUMMARY | 2025-02-23 09:11 | XMS_ITS | Clinical Summary ---
Author Organization [address] [facility] Address 175 [place] [address] Phone Care Team Providers Care Jackscrew Man Name Role Phone Physician, No Pcp Primary Care Provider Unavaila ble Active Problems Problem Noted Date Diagnosed Date Lymphatic edema 09/30/2024 Encounters Date Type Department Care Team Description 01/25/2025 12:30 PM EDT Treatment [facility] [address] [place] [phone] Gijzen, Nilam P, OTR/L Lymphedema of face (Primary Dx) 01/11/2025 12:30 PM EDT Treatment [facility] [address] [place] [phone] Gijzen, Nilam P, OTR/L Lymphedema of face (Primary Dx) 12/30/2024 1:00 PM EST Treatment [facility] [address] [place] [phone] Gijzen, Nilam P, OTR/L Lymphatic edema (Primary Dx) 12/21/2024 12:30 PM EST Treatment [facility] [address] [place] [phone] Gijzen, Nilam P, OTR/L Lymphedema of face (Primary Dx) 12/15/2024 12:30 PM EST Treatment [facility] [address] [place] [phone] GiNilam marin P, OTR/L Lymphedema of face (Primary Dx) 12/07/2024 1:30 PM EST Treatment [facility] [address] [phone] Nilam Botello P, OTR/L Lymphedema of face (Primary Dx) 12/01/2024 2:00 PM EST Treatment [facility] [address] [phone] Nilam Botello, OTR/L Lymphedema of face (Primary Dx) from Last 3 Months Social History Tobacco Use Types Packs/Day Years Used Date Smoking Tobacco: Never Assessed Sex and Gender Information Value Date Recorded Sex Assigned at Not on file Legal Sex Male 8:43 PM EST Gender Identity Not on file Sexual Orientation Not on file Plan of Treatment Health Maintenance Due Date Last Done Comments [...] 11/21/2023 Social Influencers of Health Screening 11/21/2023 Hypertension/CHF/CAD Annual BMP Blood Test 09/22/2024 Influenza Vaccine (Season Ended) 2025 11/10/19 Depression Screening 08/03/2025 08/03/2024 Cholesterol Screening (Lipid [...] age to complete this topic Meningococcal B Vaccine Aged Out No l onger eligible based on patient's age to complete this topic RSV Immunization Patients Un misty 20 months Aged Out No longer eligible b ased on patient's age to complete this topic Varicella Vaccines Aged Out No longer eligible based on patient's age to complete this topic Goals Goal Patient Goal Type Associated Problems Recent Progress Patient-Stated? Author for the swelling to go away General On track(2024 2:51 PM EDT) Yes Nilam Botello, OTR/L Note: 01/25/2025 Patient has been able to manage decreased lymph edema in face and neck ( even without application of recommended garment ) lymph edema/ fibrosis General On track(2024 2:52 PM EDT) No Nilam Botello, OTR/L Note: STG Patient will present with decreased fibrosis in submandibular area 10/11 decreased fibrosis LTG patient will present with decreased palpable / visible and measurable lymph edema in head/ neck 12/30 2024 patient presents with decreased visible and palpable lymph edema in neck however developed fibrosis. Lymph edema in his cheeks 01/25 Patient present with decreased fibrosis in sub mandible area and cheeks self management General On track(2024 2:53 PM EDT) No Nilam Botello, OTR/L Note: STG ; [...] in both cheeks Goal not met; ongoing 01/25/2025 Patient presents with decreased fibrosis and healthier tissue ; he present with increased new onset of facial hair improve posture General On track(2024 2:54 PM EDT) Nilam Boyd OTR/L Note: STG: Patient will be able to demo 3 exercises to improve neck extension and chin tuck 10/11 goal has been met; patient is able to demo 3 exercises LTG: Patient will present with increased posture and he will have active neck extension 2024 Patient is independent in HEP and demo increased neck extension of about 15 degrees Insurance MEDICAID - [place] Care Teams Jackscrew Man Relationship Specialty Start Date End Date Physician, No Pcp PCP - General 09/22/24
--- OUTSIDE RECORDS SUMMARY | 2025-02-23 09:11 | XMS_ITS | Encounter Summary ---
Author Organization [employer] Address 75 [facility] 7 [place] [address] Care Team Providers Care Magistrate Name Role Phone Chato Thomason MD Primary Care Provider [phone] Reason for Visit * Reason Onset Date Comments Med Refill 01/10/2025 Encounter Details Date Type Department Care Team ([facility] st Contact Info) Description 01/10/2025 Telephone [facility] MEDICINE [address] [place], [place] [phone] Chato Thomason MD 505 [place] [address] Med Refill Social History Tobacco Use Types [...] immediate release tablet To be sent to: [facility] - [place], [place] - [address] [place] [address] documented in this encounter Plan of Treatment Upcoming Encounters Date Type Department Care Team ([facility] st Contact Info) Description 2025 11:00 AM EDT Telemedicine [facility] MED & PEDS 505 [place] [address] Linda Pelaez RN 505 [place] [address] 04/19/2025 2:00 PM EDT Office Visit [facility] MED & PEDS 505 [place] [address] Chato Thomason MD 505 [place] [address] documented as of this encounter Visit Diagnoses Not on filedocumented in this encounter Additional Health Concerns Assessment Noted Time PHQ-9 Depression Total Score: 19 024 3:44 PM EDT documented as of this encounter Care Teams Magistrate Relationship Specialty Start Date End Date Chato Thomason MD [address] [place] [address] PCP - General Internal Medicine 10/27/18 Mackenzie Roland Clinical Research Specialist 07/09/24 Angela Pozo Clinical Research Specialist 07/09/24 [facility] 06/12/23 documented as of this encounter
--- OUTSIDE RECORDS SUMMARY | 2025-02-23 09:11 | XMS_ITS | Encounter Summary ---
Author Organization [employer] Address [address] [place] [address], [place] [address] Care Team Providers Care Park Keeper Name Role Phone Chato Thomason MD Primary Care Provider [phone] Kelsey Minaya Unavailable Unavailable Encounter Details Date Type Department Care Team (Late Contact Info) Description 12/04/2022 Abstract [facility] MEDICINE [address] [place], [place] [phone] Chato Thomason MD 505 [place] [address] Social History Tobacco Use Types Packs/Day Years [...] Encounters Date Type Department Care Team (Late Contact Info) Description 2025 11:00 AM EDT Telemedicine [facility] MED & PEDS 505 [place] [address] Linda Pelaez, WALT 505 [place], [place] [phone] 04/19/2025 2:00 PM EDT Office Visit [facility] MED & PEDS 505 [place] [address] Chato Thomason MD 505 [place], [place] [phone] documented as of this encounter Visit Diagnoses Not on filedocumented in this encounter Care Teams Park Keeper Relationship Specialty Start Date End Date Chato Thomason MD [address] [place] [address] PCP - General Internal Medicine 10/27/18 Kelsey Minaya Community Health Worker 06/08/24 07/07/24 Eliane Metzger Estimator PrintingLease Examiner 01/29/24 07/08/24 Mackenzie Roland Estimator Printing 07/09/24 Angela Pozo Estimator Printing 07/09/24 [facility] 06/12/23 documented as of this encounter
--- OUTSIDE RECORDS SUMMARY | 2025-02-23 09:11 | XMS_ITS | Encounter Summary ---
Author Organization [employer] Address [address] [place] [address] 7[place] [address] Care Team Providers Care Commercial Project Manager Name Role Phone Chato Thomason MD Primary Care Provider [phone] Kelsey Minaya Unavailable Unavailable Encounter Details Date Type Department Care Team (Late Contact Info) Description 12/04/2022 Abstract [facility] MEDICINE 230 [place], [place] [phone] Chato Thomason MD 505 [place] [address] Social History Tobacco Use Types Packs/Day Years [...] Info) Description 2025 11:00 AM EDT Telemedicine [facility] MED & PEDS 505 [place] [address] Linda Pelaez, WALT 505 [place], [place] [phone] 04/19/2025 2:00 PM EDT Office Visit [facility] MED & PEDS 505 [place] [address] Chato Thomason MD 505 [place], [place] [phone] documented as of this encounter Visit Diagnoses Not on filedocumented in this encounter Care Teams Commercial Project Manager Relationship Specialty Start Date End Date Chato Thomason MD [address] [place] [address] PCP - General Internal Medicine 10/27/18 Kelsey Minaya Community Health Worker 06/08/24 07/07/24 Eliane Metzger Transition Social WorkerClinical Trials Specialist 01/29/24 07/08/24 Mackenzie Roland Transition Social Worker 07/09/24 Angela Pozo Transition Social Worker 07/09/24 [facility] 06/12/23 documented as of this encounter
--- OUTSIDE RECORDS SUMMARY | 2025-02-23 09:11 | XMS_ITS ---
Author Organization [employer] Address [address] [place] [address] 7 [place] [address] Care Team Providers Care Channel Turner Name Role Phone Chato Thomason MD Primary Care Provider +1- [phone] CM Complex Status:Outreach In Progress (Enrolling) Start date:01/12/2025 Enrollment reason:ADT Feed Overview ADT- Pt admitted to [facility] on 01/11. Case Team Name Relationship Phone Alisha Sheehan RN Registered Nurse(Responsible S taff) Continued Care and Services Coordination
--- OUTSIDE RECORDS SUMMARY | 2025-02-23 09:11 | XMS_ITS | Encounter Summary ---
Author Organization [employer] Address 75 [facility] [place] 7t [place] [address] Care Team Providers Care Fish And Wildlife Scientific Aid Name Role Phone Chato Thomason MD Primary Care Provider +1- [phone] Kelsey Minaya Unavailable Unavailable Reason for Visit * Reason Onset Date Comments PT-1 05/14/2024 Encounter Details Date Type Department Care Team ([facility] st Contact Info) Description 05/14/2024 Telephone [facility] MEDICINE 230 [place] [address] Chato Thomason MD 505 [place] [address] PT-1 Social History Tobacco Use Types Packs/Day [...] Y/N: Yes Provider name or facility name: [facility] Facility Address: [address] [place] [address] Escort needed: Y/N: Yes Do you have a wheelchair: Y/N: No If yes- Manual or electric: no Visits: 6 documented in this encounter Plan of Treatment Upcoming Encounters Date Type Department Care Team (Late st Contact Info) Description 2025 11:00 AM EDT Telemedicine [facility] MED & PEDS 505 [place] [address] Linda Pelaez RN 505 [place] [address] 04/19/2025 2:00 PM EDT Office Visit [facility] MED & PEDS 505 [place] [address] Chato Thomason MD 505 [place] [address] documented as of this encounter Visit Diagnoses Not on filedocumented in this encounter Care Teams Fish And Wildlife Scientific Aid Relationship Specialty Start Date End Date Chato Thomason MD 505 [place] [address] PCP - General Internal Medicine 10/27/18 Kelsey Minaya Community Health Worker 06/08/24 07/07/24 Eliane Metzger Recreation Activities CoordinatorPercolator Operator 01/29/24 07/08/24 Mackenzie Roland Recreation Activities Coordinator 07/09/24 Angela Pozo Recreation Activities Coordinator 07/09/24 [facility] 06/12/23 documented as of this encounter
--- OUTSIDE RECORDS SUMMARY | 2025-02-23 09:11 | XMS_ITS | Encounter Summary ---
Author Organization [employer] Address [address] [place] [address] Care Team Providers Care Steam Train Driver Name Role Phone Chato Thomason MD Primary Care Provider [phone] Kelsey Minaya Unavailable Unavailable Reason for Referral * Consultation (Routine) - Denied Specialty Diagnoses / Procedures Referred By Contac t Referred To Contact Diagnoses Squamous cell carcinoma of larynx (CMS/HCC) Chato Thomason MD [address] [place] [address] Phone: tel: fax: [address] [phone] Phone: tel: fax: Referral ID Status Reason Start Date Expiration Date V isits Requested Visits Authorized [id number] Denied Specialty Services Required 05/04/2024 05/04/2025 1 0 Encounter Details Date Type Department Care Team (Late st Contact Info) Description 05/04/2024 Orders Only [facility] CH[facility] MED & PEDS [address] [place], [place] [phone] Chato Thomason MD [address] [place] [address] [phone] Squamous cell carcinoma of larynx (CMS/HCC) (Primary [...] Upcoming Encounters Date Type Department Care Team ([facility] st Contact Info) Description 2025 11:00 AM EDT Telemedicine [facility] MED & PEDS 505 [place] [address] Linda Pelaez RN 505 [place] [address] 04/19/2025 2:00 PM EDT Office Visit [facility] MED & PEDS 505 [place] [address] Chato Thomason MD 505 [place] [address] Scheduled Referrals Name Type Priority Associated Diagnoses Order Schedule Referral to Care Management Outpatient Referral Routine Squamous cell carcinoma of larynx (CMS/HCC) Expected: 05/04/2024 (Approximate), Expires: 05/04/2025 documented as of this encounter Visit Diagnoses Diagnosis 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, unspecified site Other insomnia documented in this encounter Care Teams Steam Train Driver Relationship Specialty Start Date End Date Chato Thomason MD 505 [place] [address] PCP - General Internal Medicine 10/27/18 Kelsey Minaya Community Health Worker 06/08/24 07/07/24 Eliane Metzger Production MinerCanning Machine Operator 01/29/24 07/08/24 Mackenzie Roland Production Miner 07/09/24 Angela Pozo Production Miner 07/09/24 [facility] 06/12/23 documented as of this encounter
--- OUTSIDE RECORDS SUMMARY | 2025-02-23 09:11 | XMS_ITS | Encounter Summary ---
Author Organization [employer] Address 75 [facility] 7t [place] [address] Care Team Providers Care Clinical Secretary Name Role Phone Chato Thomason MD Primary Care Provider [phone] Encounter Details Date Type Department Care Team ([facility] st Contact Info) Description 08/05/2024 Orders Only [facility] CHC MED & PEDS [address] [place], [place] [phone] Provider, MD Colleen Social History Tobacco Use [...] Upcoming Encounters Date Type Department Care Team ([facility] st Contact Info) Description 2025 11:00 AM EDT Telemedicine [facility] MED & PEDS 505 [place] [address] Linda Pelaez RN 505 [place] [address] 04/19/2025 2:00 PM EDT Office Visit [facility] MED & PEDS 505 [place] [address] Chato Thomason MD 505 [place] [address] documented as of this encounter Procedures Procedure [...] documented as of this encounter Care Teams Clinical Secretary Relationship Specialty Start Date End Date Chato Thomason MD 505 [place] [address] PCP - General Internal Medicine 10/27/18 Mackenzie Roland Asp Net C Developer 07/09/24 Angela Pozo Asp Net C Developer 07/09/24 [facility] 06/12/23 documented as of this encounter
--- OUTSIDE RECORDS SUMMARY | 2025-02-23 09:11 | XMS_ITS | Encounter Summary ---
Author Organization [employer] Address 75 [facility] 7 [place] [address] Care Team Providers Care Customer Experience Leader Name Role Phone Chato Thomason MD Primary Care Provider +[phone] Reason for Visit * Reason Onset Date Comments Referral 08/05/2024 Encounter Details Date Type Department Care Team ([facility] [address] Contact Info) Description 08/05/2024 Telephone [facility] CHC MED & PEDS [address] [place], [place] [phone] Chato Thomason MD 505 [place] [address] Referral Social History Tobacco Use Types Packs/Day [...] requesting to re new referral to Location: [facility] Address: [address] [place] [address] [place] [address] documented in this encounter Plan of Treatment Upcoming Encounters Date Type Department Care Team (Late st Contact Info) Description 2025 11:00 AM EDT Telemedicine [facility] MED & PEDS [address] [place] [address] Linda Pelaez, WALT 505 [place] [address] 04/19/2025 2:00 PM EDT Office Visit [facility] MED & PEDS [address] [place] [address] Chato Thomason MD 505 [place] [address] documented as of this encounter Visit Diagnoses Not on filedocumented in this encounter Additional Health Concerns Assessment Noted Time PHQ-9 Depression Total Score: 19 024 3:44 PM EDT documented as of this encounter Care Teams Customer Experience Leader Relationship Specialty Start Date End Date Chato Thomason MD 505 [place] [address] PCP - General Internal Medicine 10/27/18 Mackenzie Roland Events Traffic Controller 07/09/24 Angela Pozo Events Traffic Controller 07/09/24 [facility] 06/12/23 documented as of this encounter
--- OUTSIDE RECORDS SUMMARY | 2025-02-23 09:11 | XMS_ITS | Encounter Summary ---
Author Organization [employer] Address 75 [facility] 7t [place] [address] Care Team Providers Care Sales Manager [place] Name Role Phone Chato Thomason MD Primary Care Provider [phone] Encounter Details Date Type Department Care Team ([facility] st Contact Info) Description 10/04/2024 Orders Only [facility] MED & PEDS [address] [place], [place] [phone] Provider, MD Colleen Social History Tobacco Use [...] 2025 11:00 AM EDT Telemedicine [facility] MED & PEDS 505 [place] [address] Linda Pelaez RN 505 [place] [address] 04/19/2025 2:00 PM EDT Office Visit [facility] MED & PEDS 505 [place] [address] Chato Thomason MD 505 [place] [address] documented as of this encounter Procedures Procedure [...] documented as of this encounter Care Teams Sales Manager [place] Relationship Specialty Start Date End Date Chato Thomason MD 505 [place] [address] PCP - General Internal Medicine 10/27/18 Mackenzie Roland Distribution Clerk 07/09/24 Angela Pozo Distribution Clerk 07/09/24 [facility] 06/12/23 documented as of this encounter
--- OUTSIDE RECORDS SUMMARY | 2025-02-23 09:11 | XMS_ITS | Encounter Summary ---
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 [...] Upcoming Encounters Date Type Department Care Team ([facility] st Contact Info) Description 2025 11:00 AM EDT Telemedicine [facility] MED & PEDS 505 [place] [address] Linda Pelaez RN 505 [place] [address] 04/19/2025 2:00 PM EDT Office Visit [facility] MED & PEDS [address] [place] [address] Chato Thomason MD 505 [place] [address] documented as of this encounter Visit Diagnoses Diagnosis 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, unspecified site Other insomnia Anxiety Anxiety state, unspecified History of laryngectomy Other postprocedural status documented in this encounter Additional Health Concerns Assessment Noted Time PHQ-9 Depression Total Score: 19 024 3:44 PM EDT documented as of this encounter Care Teams Stock Worker And Deliverer Relationship Specialty Start Date End Date Chato Thomason MD 505 [place] [address] PCP - General Internal Medicine 10/27/18 Mackenzie Roland Traffic Maintenance Officer 07/09/24 Angela Pozo Traffic Maintenance Officer 07/09/24 [facility] 06/12/23 documented as of this encounter
--- OUTSIDE RECORDS SUMMARY | 2025-02-23 09:11 | XMS_ITS | Encounter Summary ---
Author Organization [employer] Address 75 [facility] 7t [place] [address] Care Team Providers Care Cell Preparer Name Role Phone Chato Thomason MD Primary Care Provider [phone] Kelsey Minaya Unavailable Unavailable Encounter Details Date Type Department Care Team (Late st Contact Info) Description 03/01/2024 Orders Only [facility] MED & PEDS [address] [place], [place] [phone] ProviderColleen MD Social History Tobacco Use Types [...] Info) Description 2025 11:00 AM EDT Telemedicine [facility] MED & PEDS 505 [place] [address] Linda Pelaez, WALT 505 [place] [address] 04/19/2025 2:00 PM EDT Office Visit [facility] MED & PEDS 505 [place] [address] Chato Thomason MD 505 [place] [address] documented as of this encounter Procedures Procedure [...] on filedocumented in this encounter Care Teams Cell Preparer Relationship Specialty Start Date End Date Chato Thomason MD 505 [place] [address] PCP - General Internal Medicine 10/27/18 Kelsey Minaya Community Health Worker 06/08/24 07/07/24 Eliane Metzger Solar System DesignerCorking Machine Operator 01/29/24 07/08/24 Mackenzie Roland Solar System Designer 07/09/24 Angela Pozo Solar System Designer 07/09/24 [facility] 06/12/23 documented as of this encounter
--- OUTSIDE RECORDS SUMMARY | 2025-02-23 09:11 | XMS_ITS | Encounter Summary ---
Author Organization [employer] Address 75 [facility] 7t [place] [address] Care Team Providers Care Pool Table Operator Name Role Phone Chato Thomason MD Primary Care Provider +[phone] Kelsey Minaya Unavailable Unavailable Reason for Visit * Reason Onset Date Comments Paperwork/Forms 02/02/2024 Encounter Details Date Type Department Care Team ([facility] st Contact Info) Description 02/02/2024 Telephone [facility] MEDICINE [address] [place] [address] Chato Thomason MD [address] [place] [address] Paperwork/Forms Social History Tobacco Use Types Packs/Day [...] - 02/02/2024 10:48 AM EDT Tc from [place] [facility] requesting status of the Transfer Summary that was faxed over on 12/01 the order number is [id number] needs to be completed and signed by the provider as soon as possible and to be faxed to [phone] documented in this encounter Plan of Treatment Upcoming Encounters Date Type Department Care Team (Late st Contact Info) Description 2025 11:00 AM EDT Telemedicine [facility] MED & PEDS [address] [place] [address] Linda Pelaez RN 505 [place] [address] 04/19/2025 2:00 PM EDT Office Visit [facility] MED & PEDS [address] [place] [address] Chato Thomason MD [address] [place] [address] documented as of this encounter Visit Diagnoses Not on filedocumented in this encounter Care Teams Pool Table Operator Relationship Specialty Start Date End Date Chato Thomason MD [address] [place] [address] PCP - General Internal Medicine 10/27/18 Kelsey Minaya Community Health Worker 06/08/24 07/07/24 Eliane Metzger Junior Graphic DesignerStock Clerk [employer] 01/29/24 07/08/24 Mackenzie Roland Junior Graphic Designer 07/09/24 Angela Pozo Junior Graphic Designer 07/09/24 [facility] 06/12/23 documented as of this encounter
--- OUTSIDE RECORDS SUMMARY | 2025-02-23 09:11 | XMS_ITS | Encounter Summary ---
Author Organization [employer] Address 75 [facility] 7t [place] [address] Care Team Providers Care Footwear Machinery Instructor Name Role Phone Chato Thomason MD Primary Care Provider [phone] Kelsey Minaya Unavailable Unavailable Encounter Details Date Type Department Care Team (Late st Contact Info) Description 02/26/2024 Orders Only [facility] [address] [place], [place] [phone] ProviderColleen MD Social History Tobacco Use Types [...] Info) Description 2025 11:00 AM EDT Telemedicine [facility] MED & PEDS 505 [place] [address] Linda Pelaez, WALT 505 [place] [address] 04/19/2025 2:00 PM EDT Office Visit [facility] MED & PEDS 505 [place] [address] Chato Thomason MD 505 [place] [address] documented as of this encounter Procedures Procedure Name Priority Date/Time Associated Diagnosis Comments PATHOLOGY REPORT (HISTOPATHOLOGY) Routine 02/24/2024 3:36 PM EDT documented in this encounter Results * Pathology Report (02/24/2024 3:36 PM EDT) Tissue Historical Provider LAB PATHOLOGY ORDERABLES Final Result documented in this encounter Visit Diagnoses Not on filedocumented in this encounter Care Teams Footwear Machinery Instructor Relationship Specialty Start Date End Date Chato Thomason MD [address] [place] [address] PCP - General Internal Medicine 10/27/18 Kelsey Minaya Community Health Worker 06/08/24 07/07/24 Eliane Metzger Novelty WorkerBead Inspector 01/29/24 07/08/24 Mackenzie Roland Novelty Worker 07/09/24 Angela Pozo Novelty Worker 07/09/24 [facility] 06/12/23 documented as of this encounter
--- OUTSIDE RECORDS SUMMARY | 2025-02-23 09:11 | XMS_ITS | Encounter Summary ---
Author Organization [employer] Address [address] [place] [address] [place] [address] Care Team Providers Care Dialysis Rn Name Role Phone Chato Thomason MD Primary Care Provider [phone] Kelsey Minaya Unavailable Unavailable Reason for Referral * Consultation (Routine) - Closed Specialty Diagnoses / Procedures Referred By Maryana singh Referred To Contact Podiatry Diagnoses Nail problem Chato Thomason MD [address] [place] [address] Phone: tel: fax: Referral ID Status Reason Start Date Expiration Date V isits Requested Visits Authorized [id number] Closed Specialty Services Required 06/11/2024 06/11/2025 1 1 Encounter Details Date Type Department Care Team ([facility] st Contact Info) Description 06/11/2024 Orders Only [facility] MED & PEDS [address] [place] [address] Chato Thomason MD [address] [place] [address] Nail problem (Primary Dx); Anxiety Social History [...] Info) Description 2025 11:00 AM EDT Telemedicine [facility] MED & PEDS 505 [place] [address] Linda Pelaez RN 505 [place] [address] 04/19/2025 2:00 PM EDT Office Visit [facility] MED & PEDS [address] [place] [address] Chato Thomason MD [address] [place] [address] Scheduled Referrals Name Type Priority Associated Diagnoses Orde r Schedule Referral to Podiatry Outpatient Referral Routine Nail problem Expected: 06/11/2024 (Approximate), Expires: 06/11/2025 documented as of this encounter Visit Diagnoses Diagnosis Nail problem- Primary Other specified disease of nail Anxiety Anxiety state, unspecified documented in this encounter Care Teams Dialysis Rn Relationship Specialty Start Date End Date Chato Thomason MD [address] [place] [address] PCP - General Internal Medicine 10/27/18 Kelsey Minaya Community Health Worker 06/08/24 07/07/24 Eliane Metzger Office RnLaundry Washer 01/29/24 07/08/24 Mackenzie Roland Office Rn 07/09/24 Angela Pozo Office Rn 07/09/24 [facility] 06/12/23 documented as of this encounter
--- OUTSIDE RECORDS SUMMARY | 2025-02-23 09:11 | XMS_ITS | Encounter Summary ---
Author Organization [employer] Address 75 [facility] 7t [place] [address] Care Team Providers Care Promotions Manager Name Role Phone Chato Thomason MD Primary Care Provider [phone] Kelsey Minaya Unavailable Unavailable Encounter Details Date Type Department Care Team (Late st Contact Info) Description 03/19/2024 Orders Only [facility] CHC MED & PEDS [address] [place], [place] [phone] ProviderColleen MD Social History Tobacco Use Types [...] 11:00 AM EDT Telemedicine [facility] MED & PEDS 505 [place] [address] Linda Pelaez, WALT [address] [place] [address] 04/19/2025 2:00 PM EDT Office Visit [facility] MED & PEDS [address] [place] [address] Chato Thomason MD 505 [place] [address] documented as of this encounter Procedures Procedure Name Priority Date/Time Associated Diagnosis Comments SURGICAL PATHOLOGY Routine 03/15/2024 9:13 AM EDT documented in this encounter Results * Surgical Pathology (03/15/2024 9:13 AM EDT) us Historical Provider LAB PATHOLOGY ORDERABLES Final Result documented in this encounter Visit Diagnoses Not on filedocumented in this encounter Care Teams Promotions Manager Relationship Specialty Start Date End Date Chato Thomason MD [address] [place] [address] PCP - General Internal Medicine 10/27/18 Kelsey Minaya Community Health Worker 06/08/24 07/07/24 Eliane Metzger Stonemason HelperFolding Rules Printing Machine Operator 01/29/24 07/08/24 Mackenzie Roland Stonemason Helper 07/09/24 Angela Pozo Stonemason Helper 07/09/24 [facility] 06/12/23 documented as of this encounter
--- OUTSIDE RECORDS SUMMARY | 2025-02-23 09:11 | XMS_ITS | Encounter Summary ---
Author Organization [employer] Address 75 [facility] 7 [place] [address] Care Team Providers Care [address] Light Servicer Helper Name Role Phone Chato Thomason MD Primary Care Provider [phone] Reason for Visit * Reason Onset Date Comments Call Back Request 07/26/2024 Encounter Details Date Type Department Care Team ([facility] st Contact Info) Description 07/26/[address] [facility] MEDICINE [address] [place], [place] [phone] Chato Thomason MD [address] [place] [address] Call Back Request Social History Tobacco Use [...] 1:57 PM EDT Tc from [place] with [facility] requesting status on referral for [facility] stating it was discussedduring last visit. Please contact Mackenzie at [phone]. documented in this encounter Plan of Treatment Upcoming Encounters Date Type Department Care Team (Late st Contact Info) Description 2025 11:00 AM EDT Telemedicine [facility] MED & PEDS [address] [place] [address] Linda Pelaez, WALT 505 [place] [address] 04/19/2025 2:00 PM EDT Office Visit [facility] MED & PEDS [address] [place] [address] Chato Thomason MD [address] [place] [address] documented as of this encounter Visit Diagnoses Not on filedocumented in this encounter Care Teams Street Light Servicer Helper Relationship Specialty Start Date End Date Chato Thomason MD [address] [place] [address] PCP - General Internal Medicine 10/27/18 Mackenzie Roland Compliance Nurse 07/09/24 Angela Pozo Compliance Nurse 07/09/24 [facility] 06/12/23 documented as of this encounter
--- OUTSIDE RECORDS SUMMARY | 2025-02-23 09:11 | XMS_ITS | Encounter Summary ---
Author Organization [facility] [employer] Address [address] [place] [address] Care Team Providers Care Maintenance Inspector Name Role Phone Chato Thomason MD Primary Care Provider [phone] Reason for Referral * Consultation (Routine) - Closed Specialty Diagnoses / Procedures Referred By Maryana singh Referred To Contact Ophthalmology Diagnoses Primary hypertension Chato Thomason MD [address] [place] [address] Phone: tel: fax: [facility] [place] [address] [place] [address] Phone: tel:[phone] fax: Referral ID Status Reason Start Date Expiration Date V isits Requested Visits Authorized [id number] Closed Specialty Services Required 10/01/2024 10/01/2025 1 1 * Consultation (Urgent) - Authorized Specialty Diagnoses / Procedures Referred By Maryana singh Referred To Contact Pharmacy Diagnoses Spongiotic dermatitis Chronic bronchitis, unspecified chronic bronchitis type (CMS/HCC) Hypercholesterolemia Primary hypertension Chato Thomason MD [address] [place] [address] Phone: tel: fax: Referral ID Status Reason Start Date Expiration Date Visits Requested Visits Authorized [id number] Authorized Continuity of Care 10/01/2024 10/01/2025 6 6 Encounter Details Date Type Department Care Team (Late st Contact Info) Description 10/01/2024 Orders Only [facility] CH[facility] MED & PEDS [address] [place] [address] Chato Thomason MD [address] [place] [address] Spongiotic dermatitis (Primary Dx); Chronic bronchitis, unspecified [...] Upcoming Encounters Date Type Department Care Team ([facility] Contact Info) Description 2025 11:00 AM EDT Telemedicine [facility] MED & PEDS [address] [place] [address] Linda Pelaez RN [address] [place] [address] 04/19/2025 2:00 PM EDT Office Visit [facility] MED & PEDS [address] [place] [address] Chato Thomason MD [address] [place] [address] Scheduled Referrals Name Type Priority Associated Diagnoses Orde r Schedule Referral to Pharmacy [facility] Outpatient Referral Urgent Spongiotic dermatitis Chronic bronchitis, unspecified chronic bronchitis type (CMS/HCC) Hypercholesterolemia Primary hypertension Ordered: 10/01/2024 documented as of this encounter Procedures Procedure Name Priority Date/Time Associated Diagnosis Comments AMB REFERRAL TO OPHTHALMOLOGY Routine 10/22/2024 Primary hypertension documented in this encounter Results * Referral to Ophthalmology (10/22/2024) us Chato Thomason MD OUTPATIENT REFERRAL ORDERAB LES [...] documented as of this encounter Care Teams Maintenance Inspector Relationship Specialty Start Date End Date Chato Thomason MD [address] [place] [address] PCP - General Internal Medicine 10/27/18 Mackenzie Roland Supervisor Bindery 07/09/24 Angela Pozo Supervisor [place] 07/09/24 [facility] 06/12/23 documented as of this encounter
--- OUTSIDE RECORDS SUMMARY | 2025-02-23 09:11 | XMS_ITS | Encounter Summary ---
Author Organization [employer] Address [address] [place] [address] Care Team Providers Care Box Sealing Inspector Name Role Phone Chato Thomason MD Primary Care Provider [phone] Kelsey Minaya Unavailable Unavailable Reason for Referral * Consultation (Routine) - Closed Specialty Diagnoses / Procedures Referred By Maryana singh Referred To Contact Occupational Therapy Diagnoses Lymphedema Chato Thomason MD [address] [place] [address] Phone: tel: fax: [facility] [address] [place] [address] Phone: tel: fax: Referral ID Status Reason Start Date Expiration Date V isits Requested Visits Authorized [id number] Closed Specialty Services Required 07/16/2024 07/16/2025 1 1 Encounter Details Date Type Department Care Team (Late st Contact Info) Description 07/07/2024 Orders Only [facility] CH[facility] MED & PEDS [address] [place] [address] Chato Thomason MD [address] [place] [address] Anxiety (Primary Dx); Lymphedema Social History Tobacco [...] Description 2025 11:00 AM EDT Telemedicine [facility] MED & PEDS [address] [place] [address] Linda Pelaez RN 505 [place] [address] 04/19/2025 2:00 PM EDT Office Visit [facility] MED & PEDS [address] [place] [address] Chato Thomason MD [address] [place] [address] Scheduled Referrals Name Type Priority Associated Diagnoses Order Schedule Referral to Occupational Therapy Outpatient Referral Routine Lymphedema Expected: 07/16/2024 (Approximate), Expires: 07/16/2025 documented as of this encounter Visit Diagnoses Diagnosis Anxiety- Primary Anxiety state, unspecified Lymphedema Other noninfectious lymphedema documented in this encounter Care Teams Box Sealing Inspector Relationship Specialty Start Date End Date Chato Thomason MD [address] [place] [address] PCP - General Internal Medicine 10/27/18 Kelsey Minaya Community Health Worker 06/08/24 07/07/24 Eliane Metzger Supervisor Nuclear MedicineWelding Robot Operator 01/29/24 07/08/24 Mackenzie Roland Supervisor Nuclear Medicine 07/09/24 Angela Pozo Supervisor Nuclear Medicine 07/09/24 [facility] 06/12/23 documented as of this encounter
--- OUTSIDE RECORDS SUMMARY | 2025-02-23 09:11 | XMS_ITS | Encounter Summary ---
Author Organization [employer] Address 75 [facility] 7t [place] [address] Care Team Providers Care Tobacco Dipper Name Role Phone Chato Thomason MD Primary Care Provider [phone] Kelsey Minaya Unavailable Unavailable Encounter Details Date Type Department Care Team (Late st Contact Info) Description 03/30/2024 Orders Only [facility] CH[facility] MED & PEDS [address] [place], [place] [phone] ProviderColleen MD Social History Tobacco Use Types [...] [facility] MED & PEDS [address] [place] [address] Linda Pelaez, WALT 505 [place] [address] 04/19/2025 2:00 PM EDT Office Visit [facility] MED & PEDS [address] [place] [address] Chato Thomason MD [address] [place] [address] documented as of this encounter Procedures Procedure Name Priority Date/Time Associated Diagnosis Comments SURGICAL PATHOLOGY Routine 03/25/2024 8:43 AM EDT documented in this encounter Results * Surgical Pathology (03/25/2024 8:43 AM EDT) us Historical Provider LAB PATHOLOGY ORDERABLES Final Result documented in this encounter Visit Diagnoses Not on filedocumented in this encounter Care Teams Tobacco Dipper Relationship Specialty Start Date End Date Chato Thomason MD [address] [place] [address] PCP - General Internal Medicine 10/27/18 Kelsey Minaya Community Health Worker 06/08/24 07/07/24 Eliane Metzger Automobile DetailerTransmission Systems Operator 01/29/24 07/08/24 Mackenzie Roland Automobile Detailer 07/09/24 Angela Pozo Automobile Detailer 07/09/24 [facility] 06/12/23 documented as of this encounter
--- OUTSIDE RECORDS SUMMARY | 2025-02-23 09:11 | XMS_ITS | Encounter Summary ---
Author Organization [employer] Address 75 [facility] 7t [place] [address] Care Team Providers Care Campus Ambassador Name Role Phone Chato Thomason MD Primary Care Provider [phone] Encounter Details Date Type Department Care Team ([facility] st Contact Info) Description 07/22/2024 Orders Only [facility] MED & PEDS [address] [place], [place] [phone] Chato Thomason MD [address] [place], [place] [phone] Anxiety Social History Tobacco Use Types Packs/Day [...] Upcoming Encounters Date Type Department Care Team ([facility] st Contact Info) Description 2025 11:00 AM EDT Telemedicine [facility] MED & PEDS [address] [place] [address] Linda Pelaez RN [address] [place] [address] 04/19/2025 2:00 PM EDT Office Visit [facility] MED & PEDS [address] [place] [address] Chato Thomason MD [address] [place] [address] documented as of this encounter Visit Diagnoses Diagnosis Anxiety Anxiety state, unspecified documented in this encounter Care Teams Campus Ambassador Relationship Specialty Start Date End Date Chato Thomason MD [address] [place] [address] PCP - General Internal Medicine 10/27/18 Mackenzie Roland Back Shoe Operator 07/09/24 Angela Pozo Back Shoe Operator 07/09/24 [facility] 06/12/23 documented as of this encounter
--- OUTSIDE RECORDS SUMMARY | 2025-02-23 09:11 | XMS_ITS | Encounter Summary ---
Author Organization [employer] Address 75 [facility] 7 [place] [address] Care Team Providers Care Clinical Investigator Name Role Phone Chato Thomason MD Primary Care Provider [phone] Kelsey Minaya Unavailable Unavailable Reason for Visit * Reason Onset Date Comments PT1 06/07/2024 Encounter Details Date Type Department Care Team ([facility] st Contact Info) Description 06/07/2024 Telephone [facility] MED & PEDS [address] [place], [place] [phone] Chato Thomason MD 505 [place] [address] PT1 Social History Tobacco Use Types Packs/Day [...] Y/N: Yes Provider name or facility name: [facility] Facility Address: [address] [place] [address] Escort needed: Y/N: Yes Do you have a wheelchair: Y/N: No If yes- Manual or electric: n/a Visits: 1 x week documented in this encounter Plan of Treatment Upcoming Encounters Date Type Department Care Team (Late st Contact Info) Description 2025 11:00 AM EDT Telemedicine [facility] MED & PEDS [address] [place] [address] Linda Pelaez RN [address] [place] [address] 04/19/2025 2:00 PM EDT Office Visit [facility] MED & PEDS 505 [place] [address] Chato Thomason MD 505 [place] [address] documented as of this encounter Visit Diagnoses Not on filedocumented in this encounter Care Teams Clinical Investigator Relationship Specialty Start Date End Date Chato Thomason MD 505 [place] [address] PCP - General Internal Medicine 10/27/18 Kelsey Minaya Community Health Worker 06/08/24 07/07/24 Eliane Metzger Nailer OperatorPeripheral Vascular Tech 01/29/24 07/08/24 Mackenzie Roland Nailer Operator 07/09/24 Angela Pozo Nailer Operator 07/09/24 [facility] 06/12/23 documented as of this encounter
--- OUTSIDE RECORDS SUMMARY | 2025-02-23 09:11 | XMS_ITS | Encounter Summary ---
Author Organization [employer] Address 75 [facility] 7t [place] [address] Care Team Providers Care Concrete Paving Supervisor Name Role Phone Chato Thomason MD Primary Care Provider [phone] Kelsey Minaya Unavailable Unavailable Encounter Details Date Type Department Care Team (Late st Contact Info) Description 06/24/2024 Orders Only [facility] CHC MED & PEDS [address] [place], [place] [phone] ProviderColleen MD Social History Tobacco Use Types [...] EDT Telemedicine [facility] MED & PEDS [address] [place] [address] Linda Pelaez, WALT [address] [place] [address] 04/19/2025 2:00 PM EDT Office Visit [facility] MED & PEDS [address] [place] [address] Chato Thomason MD [address] [place] [address] documented as of this encounter Procedures Procedure Name Priority Date/Time Associated Diagnosis Comments CT SOFT TISSUE NECK W CONTRAST Routine 06/24/2024 2:25 PM EDT documented in this encounter Results * CT Soft Tissue Neck w/ Contrast (06/24/2024 2:25 PM EDT) Anatomical Region Laterality Modality Head, Neck Computed Tomogra phy Historical Provider MD JEAN CT PROCEDURES Final R esult documented in this encounter Visit Diagnoses Not on filedocumented in this encounter Care Teams Concrete Paving Supervisor Relationship Specialty Start Date End Date Chato Thomason MD [address] [place] [address] PCP - General Internal Medicine 10/27/18 Kelsey Minaya Community Health Worker 06/08/24 07/07/24 Eliane Metzger Scrap Stripper HandRn Practitioner 01/29/24 07/08/24 Mackenzie Roland Scrap Stripper Hand 07/09/24 Angela Pozo Scrap Stripper Hand 07/09/24 [facility] 06/12/23 documented as of this encounter
--- OUTSIDE RECORDS SUMMARY | 2025-02-23 09:12 | XMS_ITS | Encounter Summary ---
Author Organization [employer] Address 75 [facility] 7 [place] [address] Care Team Providers Care Manager Supply Chain Name Role Phone Chato Thomason MD Primary Care Provider [phone] Reason for Visit * Reason Onset Date Comments PT1 02/15/2025 Encounter Details Date Type Department Care Team ([facility] st Contact Info) Description 02/15/2025 Telephone [facility] MEDICINE [address] [place], [place] [address] Chato Thomason MD [address] [place] [address] PT1 Social History Tobacco Use Types Packs/Day [...] * Telephone Encounter - Lupe Lopez - 02/15/2025 8:02 AM EDT Patient calling requesting PT1 Home Address verified: Y/N: Yes Provider name or facility name: [address] [place] [address] [facility] Esc[facility] needed: Y/N: Yes Do you have a wheelchair: Y/N: No If yes- Manual or electric: N/A Visits: (2x weekly) documented in this encounter Plan of Treatment Upcoming Encounters Date Type Department Care Team ([facility] st Contact Info) Description 2025 11:00 AM EDT Telemedicine [facility] MED & PEDS [address] [place] [address] Linda Pelaez, RN [address] [place] [address] 04/19/2025 2:00 PM EDT Office Visit [facility] MED & PEDS [address] [place] [address] Chato Thomason MD [address] [place] [address] documented as of this encounter Visit Diagnoses Not on filedocumented in this encounter Additional Health Concerns Assessment Noted Time PHQ-9 Depression Total Score: 19 024 3:44 PM EDT documented as of this encounter Care Teams Manager Supply Chain Relationship Specialty Start Date End Date Chato Thomason MD [address] [place] [address] PCP - General Internal Medicine 10/27/18 Mackenzie Roland Agency Recruiter 07/09/24 Angela Pozo Agency Recruiter 07/09/24 [facility] 06/12/23 documented as of this encounter
--- OUTSIDE RECORDS SUMMARY | 2025-02-23 09:12 | XMS_ITS | Encounter Summary ---
Author Organization [facility] [employer] Address [address] [place] [address] 7 [place] [address] Care Team Providers Care Engineering Supplies Sales Name Role Phone Chato Thomason MD Primary Care Provider [phone] Kelsey Minaya Unavailable Unavailable Encounter Details Date Type Department Care Team (Late st Contact Info) Description 07/03/2023 Orders Only [facility] MED & PEDS [address] [place] [address] Lucia Elmore LPN Social History Tobacco Use [...] [facility] [address] [place] [address] Linda Pelaez, WALT [address] [place] [address] 04/19/2025 2:00 PM EDT Office Visit [facility] MED & PEDS [address] [place] [address] Chato Thomason MD 505 [place] [address] documented as of this encounter Visit Diagnoses Not on filedocumented in this encounter Care Teams Engineering Supplies Sales Relationship Specialty Start Date End Date Chato Thomason MD [address] [place] [address] PCP - General Internal Medicine 10/27/18 Kelsey Minaya Community Health Worker 06/08/24 07/07/24 Eliane Metzger Molder SetterNetwork Manager 01/29/24 07/08/24 Mackenzie Roland Molder Setter 07/09/24 Angela Pozo Molder Setter 07/09/24 [facility] 06/12/23 documented as of this encounter
--- OUTSIDE RECORDS SUMMARY | 2025-02-23 09:12 | XMS_ITS | Encounter Summary ---
Author Organization [employer] Address [address] [place] [address] [address] [address] Care Team Providers Care Department Chair Name Role Phone Chato Thomason MD Primary Care Provider [phone] Reason for Referral * Consultation (Routine) - Closed Specialty Diagnoses / Procedures Referred By Contac t Referred To Contact Physical Therapy Diagnoses Neuropathic pain Physical deconditioning Chato Thomason MD [address] [place] [address] Phone: tel: fax: [address] [place] [address] Phone: tel: fax: Referral ID Status Reason Start Date Expiration Date V isits Requested Visits Authorized [id number] Closed Specialty Services Required 02/21/2025 02/21/2026 20 20 Encounter Details Date Type Department Care Team ([facility] st Contact Info) Description 02/17/2025 Orders Only [facility] MED & PEDS [address] [place], [place] [phone] Chato Thomason MD [address] [place], [place] [phone] Neuropathic pain (Primary Dx); Physical deconditioning Social History Tobacco Use Types Packs/Day Years Used Date Smoking Tobacco: Former Cigarettes 1 25 - 2022 Passive Smoke Exposure: Current Smokeless [...] Upcoming Encounters Date Type Department Care Team ([facility] st Contact Info) Description 2025 11:00 AM EDT Telemedicine [facility] MED & PEDS [address] [place] [address] Linda Pelaez, RN [address] [place] [address] 04/19/2025 2:00 PM EDT Office Visit [facility] MED & PEDS [address] [place] [address] Chato Thomason MD [address] [place] [address] Scheduled Referrals Name Type Priority Associated Diagnoses Orde r Schedule Referral to Physical Therapy Outpatient Referral Routine Neuropathic pain Physical deconditioning Expected: 02/17/2025 (Approximate), Expires: 02/17/2026 documented as of this encounter Visit Diagnoses Diagnosis Neuropathic pain- Primary Physical deconditioning Muscular wasting and disuse atrophy, not elsewhere classified documented in this encounter Additional Health Concerns Assessment Noted Time PHQ-9 Depression Total Score: 19 024 3:44 PM EDT documented as of this encounter Care Teams Department Chair Relationship Specialty Start Date End Date Chato Thomason MD [address] [place] [address] PCP - General Internal Medicine 10/27/18 Macknezie Roland Computer Systems Integrator 07/09/24 Angela Pozo Computer Systems Integrator 07/09/24 [facility] 06/12/23 documented as of this encounter
--- OUTSIDE RECORDS SUMMARY | 2025-02-23 09:12 | XMS_ITS | Encounter Summary ---
Author Organization [employer] Address [address] [facility] 7t [place] [address] Care Team Providers Care Auto Dealer Name Role Phone Chato Thomason MD Primary Care Provider [phone] Kelsey Minaya Unavailable Unavailable Encounter Details Date Type Department Care Team (Late st Contact Info) Description 08/28/2023 Abstract [facility] MEDICINE [address] [place] [address] Chato Thomason MD [address] [place] [address] Social History Tobacco Use Types Packs/Day Years [...] 2025 11:00 AM EDT Telemedicine [facility] MED & PEDS 505 [place] [address] Linda Pelaez RN 505 [place] [address] 04/19/2025 2:00 PM EDT Office Visit [facility] MED & PEDS [address] [place] [address] Chato Thomason MD [address] [place] [address] documented as of this encounter Procedures Procedure Name Priority Date/Time Associated Diagnosis Comments IFOBT Routine 05/20/2022 8:42 AM EDT documented in this encounter Results * gFOBT (05/20/2022 8:42 AM EDT) Fecal Occult Blood 1 Negative Fecal Occult Blood 2 Negative Fecal Occult Blood 3 Negative 05/20/2022 8:42 AM EDT us Historical Provider POINT OF CARE TEST ENTER/ EDIT ORDERABLES Final Result documented in this encounter Visit Diagnoses Not on filedocumented in this encounter Care Teams Auto Dealer Relationship Specialty Start Date End Date Chato Thomason MD [address] [place] [address] PCP - General Internal Medicine 10/27/18 Kelsey Minaya Community Health Worker 06/08/24 07/07/24 Eliane Metzger Merchandising ManagerManagement Consultant 01/29/24 07/08/24 Mackenzie Roland Merchandising Manager 07/09/24 Angela Pozo Merchandising Manager 07/09/24 [facility] 06/12/23 documented as of this encounter
--- OUTSIDE RECORDS SUMMARY | 2025-02-23 09:12 | XMS_ITS | Encounter Summary ---
Author Organization [employer] Address 75 [facility] 7 [place] [address] Care Team Providers Care Cable Systems Installer Name Role Phone Chato Thomason MD Primary Care Provider [phone] Reason for Visit * Reason Onset Date Comments Med Refill 02/21/2025 Encounter Details Date Type Department Care Team ([facility] st Contact Info) Description 02/21/2025 Telephone [facility] MEDICINE [address] [place], [place] [phone] Chato Thomason MD 505 [place] [address] Med Refill Social History Tobacco Use Types [...] * Telephone Encounter - Lupe Lopez - 02/21/2025 8:06 AM EDT TC from pt requesting medication refill. Medications needing refill : LORazepam (Ativan) 1 MG tablet To be sent to: [facility] - [address] documented in this encounter Plan of Treatment Upcoming Encounters Date Type Department Care Team ([facility] st Contact Info) Description 2025 11:00 AM EDT Telemedicine [facility] MED & PEDS [address] [place] [address] Linda Pelaez RN 505 [place] [address] 04/19/2025 2:00 PM EDT Office Visit [facility] MED & PEDS 505 [place] [address] Chato Thomason MD 505 [place] [address] documented as of this encounter Visit Diagnoses Not on filedocumented in this encounter Additional Health Concerns Assessment Noted Time PHQ-9 Depression Total Score: 19 024 3:44 PM EDT documented as of this encounter Care Teams Cable Systems Installer Relationship Specialty Start Date End Date Chato Thomason MD [address] [place] [address] PCP - General Internal Medicine 10/27/18 Mackenzie Roland Ophthalmic Technician Apprentice 07/09/24 Angela Pozo Ophthalmic Technician Apprentice 07/09/24 [facility] 06/12/23 documented as of this encounter
--- OUTSIDE RECORDS SUMMARY | 2025-02-23 09:12 | XMS_ITS | Encounter Summary ---
Author Organization [employer] Address [address] [facility] 7 [place] [address] Care Team Providers Care Hr Recruiter Name Role Phone Chato Thomason MD Primary Care Provider [phone] Reason for Visit * Reason Onset Date Comments Med Refill 09/13/2024 Encounter Details Date Type Department Care Team ([facility] st Contact Info) Description 09/13/2024 Telephone [facility] MEDICINE [address] [place] [address] Chato Thomason MD 505 [place] [address] Med Refill Social History Tobacco Use Types [...] immediate release tablet To be sent to: [id number] AT [facility] documented in this encounter Plan of Treatment Upcoming Encounters Date Type Department Care Team ([facility] Contact Info) Description 2025 11:00 AM EDT Telemedicine [facility] MED & PEDS 505 [place] [address] Linda Pelaez RN 505 [place] [address] 04/19/2025 2:00 PM EDT Office Visit [facility] MED & PEDS 505 [place] [address] Chato Thomason MD [address] [place] [address] documented as of this encounter Visit Diagnoses Not on filedocumented in this encounter Additional Health Concerns Assessment Noted Time PHQ-9 Depression Total Score: 19 024 3:44 PM EDT documented as of this encounter Care Teams Hr Recruiter Relationship Specialty Start Date End Date Chato Thomason MD [address] [place] [address] PCP - General Internal Medicine 10/27/18 Mackenzie Roland Back End Engineer 07/09/24 Angela Pozo Back End Engineer 07/09/24 [facility] 06/12/23 documented as of this encounter
--- OUTSIDE RECORDS SUMMARY | 2025-02-23 09:12 | XMS_ITS | Encounter Summary ---
Author Organization [employer] Address [address] [place] [address] 7 [place] [address] Care Team Providers Care Mock Up Assembler Name Role Phone Chato Thmoason MD Primary Care Provider [phone] Reason for Visit * Reason Comments Med Refill Encounter Details Date Type Department Care Team ([facility] st Contact Info) Description 11/30/2024 Refill [facility] MED & PEDS [address] [place], [place] [phone] Chato Thomason MD 505 [place] [address] Other insomnia; Anxiety; Anxiety; Squamous cell carcinoma [...] Upcoming Encounters Date Type Department Care Team ([facility] st Contact Info) Description 2025 11:00 AM EDT Telemedicine [facility] MED & PEDS 505 [place] [address] Linda Pelaez, WALT 505 [place] [address] 04/19/2025 2:00 PM EDT Office Visit [facility] MED & PEDS 505 [place] [address] Chato Thomason MD 505 [place] [address] documented as of this encounter Visit Diagnoses Diagnosis Other insomnia Anxiety Anxiety state, unspecified Squamous cell carcinoma of larynx (CMS/HCC) Malignant neoplasm of larynx, unspecified site documented in this encounter Additional Health Concerns Assessment Noted Time PHQ-9 Depression Total Score: 19 024 3:44 PM EDT documented as of this encounter Care Teams Mock Up Assembler Relationship Specialty Start Date End Date Chato Thomason MD 505 [place] [address] PCP - General Internal Medicine 10/27/18 Mackenzie Roland Assistant Manager Bilingual 07/09/24 Angela Pozo Assistant Manager Bilingual 07/09/24 [facility] 06/12/23 documented as of this encounter
--- OUTSIDE RECORDS SUMMARY | 2025-02-23 09:12 | XMS_ITS | Encounter Summary ---
Author Organization [employer] Address [address] [facility] 7 [place] [address] Care Team Providers Care Monotype Operator Name Role Phone Chato Thomason MD Primary Care Provider [phone] Reason for Visit * Reason Onset Date Comments Med Refill 02/15/2025 Encounter Details Date Type Department Care Team ([facility] st Contact Info) Description 02/15/[address] [facility] MEDICINE 230 [place], [place] [phone] Chato Thomason MD [address] [place] [address] Med Refill Social History Tobacco Use Types [...] Telephone Encounter - Lupe Lopez - 02/15/2025 8:11 AM EDT TC from pt requesting medication refill. Medications needing refill : oxyCODONE HCl 7.5 MG tablet To be sent to: [facility] documented in this encounter Plan of Treatment Upcoming Encounters Date Type Department Care Team ([facility] st Contact Info) Description 2025 11:00 AM EDT Telemedicine [facility] MED & PEDS [address] [place] [address] Linda Pelaez RN [address] [place] [address] 04/19/2025 2:00 PM EDT Office Visit [facility] MED & PEDS [address] [place] [address] Chato Thomason MD [address] [place] [address] documented as of this encounter Visit Diagnoses Not on filedocumented in this encounter Additional Health Concerns Assessment Noted Time PHQ-9 Depression Total Score: 19 024 3:44 PM EDT documented as of this encounter Care Teams Monotype Operator Relationship Specialty Start Date End Date Chato Thomason MD [address] [place] [address] PCP - General Internal Medicine 10/27/18 Mackenzie Roland Supervisor Endless Track Vehicle 07/09/24 Angela Pozo Supervisor Endless Track Vehicle 07/09/24 [facility] 06/12/23 documented as of this encounter
--- OUTSIDE RECORDS SUMMARY | 2025-02-23 09:12 | XMS_ITS | Encounter Summary ---
Author Organization [employer] Address [address] [facility] 7 [place] [address] Care Team Providers Care Catia Designer Name Role Phone Chato Thomason MD Primary Care Provider [phone] Reason for Visit * Reason Onset Date Comments Med Refill 11/30/2024 Encounter Details Date Type Department Care Team ([facility] st Contact Info) Description 11/30/2024 Telephone [facility] MEDICINE 230 [place], [place] [phone] Chato Thomason MD 505 [place] [address] Med Refill Social History Tobacco Use Types [...] 50 MG tablet To be sent to: [facility] [place], [place] - [address] [place] [address] documented in this encounter Plan of Treatment Upcoming Encounters Date Type Department Care Team ([facility] st Contact Info) Description 2025 11:00 AM EDT Telemedicine [facility] MED & PEDS [address] [place] [address] Linda Pelaez RN [address] [place] [address] 04/19/2025 2:00 PM EDT Office Visit [facility] MED & PEDS [address] [place] [address] Chato Thomason MD [address] [place] [address] documented as of this encounter Visit Diagnoses Not on filedocumented in this encounter Additional Health Concerns Assessment Noted Time PHQ-9 Depression Total Score: 19 024 3:44 PM EDT documented as of this encounter Care Teams Catia Designer Relationship Specialty Start Date End Date Chato Thomason MD [address] [place] [address] PCP - General Internal Medicine 10/27/18 Mackenzie Roland Concrete Polisher 07/09/24 Angela Pozo Concrete Polisher 07/09/24 [facility] 06/12/23 documented as of this encounter
--- OUTSIDE RECORDS SUMMARY | 2025-02-23 09:12 | XMS_ITS | Encounter Summary ---
Author Organization [employer] Address [address] [facility] 7t [place] [address] Care Team Providers Care Horticulture Instructor Name Role Phone Chato Thomason MD Primary Care Provider [phone] Kelsey Minaya Unavailable Unavailable Encounter Details Date Type Department Care Team ([facility] st Contact Info) Description 08/13/2023 Orders Only [facility] MED & PEDS [address] [place], [place] [phone] Chato Thomason MD 505 [place] [address] Spongiotic dermatitis (Primary Dx) Social History Tobacco [...] Upcoming Encounters Date Type Department Care Team ([facility] st Contact Info) Description 2025 11:00 AM EDT Telemedicine [facility] MED & PEDS [address] [place] [address] Linda Pelaez, WALT 505 [place] [address] 04/19/2025 2:00 PM EDT Office Visit [facility] MED & PEDS [address] [place] [address] Chato Thomason MD 505 [place] [address] documented as of this encounter Visit Diagnoses Diagnosis Spongiotic dermatitis- Primary Contact dermatitis and other eczema, due to unspecified cause documented in this encounter Care Teams Horticulture Instructor Relationship Specialty Start Date End Date Chato Thomason MD 505 [place] [address] PCP - General Internal Medicine 10/27/18 Kelsey Minaya Community Health Worker 06/08/24 07/07/24 Eliane Metzger Back JoinerSpanish Speaking Babysitter 01/29/24 07/08/24 Mackenzie Roland Back Joiner 07/09/24 Angela Pozo Back Joiner 07/09/24 [facility] 06/12/23 documented as of this encounter
--- OUTSIDE RECORDS SUMMARY | 2025-02-23 09:12 | XMS_ITS | Encounter Summary ---
Author Organization [facility] [employer] Address [address] [place] [address] Care Team Providers Care Offc Spec Name Role Phone Chato Thomason MD Primary Care Provider [phone] Reason for Visit * Consultation (Urgent) - Authorized Specialty Diagnoses / Procedures Referred By Contac t Referred To Contact Pharmacy Diagnoses Spongiotic dermatitis Chronic bronchitis, unspecified chronic bronchitis type (CMS/HCC) Hypercholesterolemia Primary hypertension Chato Thomason MD [address] [place] [address] Phone: tel: fax: Referral ID Status Reason Start Date Expiration Date Visits Requested Visits Authorized [id number] Authorized Continuity of Care 10/01/2024 10/01/2025 6 6 Encounter Details Date Type Department Care Team ([facility] st Contact Info) Description 02/21/2025 9:00 AM EDT Telemedicine [facility] MEDICINE [address] [place] [address] Chandana Jin, RupinderD [address] [place] [address] Chronic bronchitis, unspecified chronic bronchitis type (CMS/HCC) (Primary Dx); Hypercholesterolemia; Spongiotic dermatitis Social History Tobacco Use Types Packs/Day Years [...] as of this encounter Progress Notes * Chandana Jin PharmD - 02/21/2025 9:00 AM EDT Pharmacy Consult Visit Type: MTM Visit Pharmacist: Chandana Jin PharmD Referral Diagnosis: HTN, HLD, chronic bronchitis, spongiotic dermatitis Referral Expiration: 10/01/25 Referring Provider: Dr. Thomason Pharmacy Recommendations for Provider: At this time patient does not have a need to follow-up with the MTM Program. If further medication therapy management is needed, please consider referring patient back. Thank you for your care in this patient. Background/ Visit Intake Lawrence Childers is a 59 y.o. patient here for a follow-up visit. Visit completed over the phone withpatient's mother (Angelica - healthcare proxy on HIPAA). Patient has PMH of laryngectomy, in which they are unable to communicate via telephone, as they use a tablet/note cards to communicate in-person. Allergies: is allergic to lisinopril. Preferred Pharmacy: [facility] [address] [id number] Medbox: No. Assessment & Plan Adherence: History: Medication Reconciliation: OTC medication, vitamin, supplement use: Melatonin 10 mg (liquid) once daily as needed Reports use of a medication for acid reflux however is unable to recall the name of the medication at this time. Reports as needed use, however denies using for past couple weeks, as most acid reflux symptoms occur with tube feedings, however has been starting to tolerate more liquid/soft diet foods Adherence: Medication Organization: Takes from vials Patient was previously interested in medbox program, however at last visit patient and mother agreeable that medboxes are not feasible for their daily medication routine, as medication list only includes use of as needed medications Missed doses: Denies missed doses Read/Write: Yes, in Yi Goals of therapy: Improve adherence & minimize missed doses (<2 missed doses/week) Recommendations/Monitoring: Pharmacy updated medlist in [facility] to match patients current medication use COPD / chronic bronchitis Pharmacologic Therapy: Advair diskus 500-50 mcg/act 1 puff twice daily Albuterol HFA 2 puffs every 4 hours History: Patient has history of laryngectomy and tacheostomy Per chart review, patient historically on combination therapy with Spiriva Handihaler and Advair diskus. However, Spiriva was discontinued as patient reported not using due to difficulty with administration (as the product is formulated as inhalation capsules), in which patient was then continued on Advair diskus monotherapy. Mother reports that patient has been using Advair diskus as needed Endorsed that they believed that Advair was to be used in combination with the albuterol inhaler asneeded for symptom relief. Reported use is consistent with the available dispense history, which demonstrates a gap in therapy(last filled 01/26/25, however prior fill date was 11/23/24) Reports using JEANETTE ~3 times daily every day for symptoms of SOB and wheezing. Identified humidity, and activity/exertion as a trigger. Goals of Therapy: Per GOLD Guidelines: Optimize therapy to achieve symptom control (defined as rescue inhaler use < 2x per week). Prevent hospitalization secondary to exacerbation Plan: Educated mother to have patient use Advair diskus twice daily as directed as their maintenance inhaler therapy. Mother reported understanding and agreeable to plan. Need for intensification of therapy to be re-evaluated following implementation of proper use of current regimen. Per chart review, patient has PMH of COPD, and is maintained on inhaler therapy with ICS+LABA. Per GOLD guidelines, if patient is well controlled in terms of symptoms and exacerbations, continuation with ICS+LABA is an option for therapy. Additionally, per GOLD guidelines, the following should be considered: If patient continues to experience further symptoms or exacerbations, treatment should be escalatedto ICS+LAMA+LABA if blood eosinophils are >/=100 cells/uL Eosinophils 100 cells/uL as of 04/09/24. Please consider combining inhaler therapy into a single inhaler with Trelegy ellipta 100-62.5-25 mcg/act 1 puff once daily (PA required). Education: Reviewed the difference between maintenance and rescue medications. Counseled patient on the importance of using maintenance inhaler as prescribed to improve symptom control, reduce the risk of exacerbation, & minimize the need for JEANETTE. Patient confirmed understanding. ASCVD Risk Pharmacologic Therapy: None Lab monitoring: Lab Results Component Value Date Total cholesterol 197 12/19/2021 HDL 45 12/19/2021 LDL 109 12/19/2021 Triglycerides 322 12/19/2021 AST 14 03/15/2024 ALT 12 03/15/2024 The 10-year ASCVD risk score (Gurinder GALVAN, et al, 2019) is : 6.3% Goals of Therapy: ACC/AHA 2018 Cholesterol Guidelines: Ensure evidence based and safe use of medications for primary prevention of ASCVD. Plan: Patient due for updated FLP, actively ordered, needs collection. Patient encouraged to complete outstanding labwork. Plan to re-evaluate 10-yr ASCVD risk score upon return of updated FLP. If patient in intermediate risk category (10-yr ASCVD risk score 7.5-20%) with presence of risk enhancers (HLD, chronic inflammatory condition), per ACC/AHA 2018 guidelines, initiation of a moderate intensity statin is recommended in order to reduce LDL by 30-50% for primary prevention. May consider initiation of atorvastatin 20 mg once daily. If patient is in high risk category (10-yr ASCVD risk score >20%), per ACC/AHA 2018 guidelines, initiation of a high intensity statin is recommended in order to reduce LDL by >50% for primary prevention. May consider initiation of atorvastatin 40 mg once daily. Spongiotic Dermatitis Pharmacotherapy: Dupixent 300 mg subcutaneous once every other week History: Patient follows with [facility] (Jaret Kaiser). Patient reports having a follow up visit scheduled for the fall (unable to recall specific date at this time) Goals of Therapy: Reduce inflammation, alleviate itching, improve skin barrier function, and prevent flare-ups. Plan: Continue current regimen as directed. Mother/patient encouraged to contact office to retrieve the specific follow up appointment date. Mother reported understanding. Immunizations History: There is no immunization history on file for this patient. Goals of therapy: Ensure patient is up to date per the CDC Adult Immunization Schedule. Assessment/Plan: COVID-19 [id number] vaccine: Due . Next dose due annually. Hepatitis B series (Age 19-59): Due . Pneumococcal vaccines (chronic lung disease (asthma or COPD)): Due Shingrix series (age > 50 ): Due Td/TDaP (within the past 10 years): Due . Next dose due every 10 years. Plan: Mother interested in PCV20 and Shingrix vaccines for the patient at this time, however is not interested in scheduling vaccine appointments at this time due to difficulty with transportation. Pharmacist encouraged patient/mother to inquire about administration for eligible vaccinations at upcoming visit with PCP. Reported understanding. Education: Indication of all recommended/administered vaccines Patient Action Plan At this time patient does not have a need to follow-up with the MTM Program. Follow up appointment with PCP scheduled for 04/19/25. If further medication therapy management is needed, please consider referring patient back. Thank you for your care in this patient. Continue to adhere to medication Receive all recommended vaccinations Attend follow up appointments (PCP, OT, otolaryngology clinic, dermatology, psychiatry) documented in this encounter Plan of Treatment Upcoming Encounters Date Type Department Care Team ([facility] st Contact Info) Description 2025 11:00 AM EDT Telemedicine [facility] MED & PEDS [address] [place] [address] Linda Pelaez, WALT [address] [place] [address] 04/19/2025 2:00 PM EDT Office Visit [facility] MED & PEDS [address] [place] [address] Chato Thomason MD [address] [place] [address] documented as of this encounter Visit Diagnoses Diagnosis Chronic bronchitis, unspecified chronic bronchitis type (CMS/HCC)- Primary Hypercholesterolemia Pure hypercholesterolemia Spongiotic dermatitis Contact dermatitis and other eczema, due to unspecified cause documented in this encounter Additional Health Concerns Assessment Noted Time PHQ-9 Depression Total Score: 19 024 3:44 PM EDT documented as of this encounter Care Teams Offc Spec Relationship Specialty Start Date End Date Chato Thomason MD [address] [place] [address] PCP - General Internal Medicine 10/27/18 Mackenzie Roland Visitor Services Specialist 07/09/24 Angela Pozo Visitor Services Specialist 07/09/24 [facility] 06/12/23 documented as of this encounter
--- OUTSIDE RECORDS SUMMARY | 2025-02-23 09:12 | XMS_ITS | Encounter Summary ---
Author Organization [employer] Address [address] [facility] 7 [place] [address] Care Team Providers Care Area Manager Name Role Phone Chato Thomason MD Primary Care Provider [phone] Reason for Visit * Reason Onset Date Comments Med Refill 02/02/2025 Encounter Details Date Type Department Care Team ([facility] st Contact Info) Description 02/02/2025 Telephone [facility] MEDICINE [address] [place], [place] [phone] Chato Thomason MD [address] [place] [address] Med Refill Social History Tobacco Use Types [...] * Telephone Encounter - Reuben Edward - 02/02/2025 8:02 AM EDT TC from pt requesting medication refill. Medications needing refill : oxyCODONE (Roxicodone) 15 MG immediate release tablet To be sent to: [facility] - [place], [place] - [address] [place] [address] documented in this encounter Plan of Treatment Upcoming Encounters Date Type Department Care Team ([facility] st Contact Info) Description 2025 11:00 AM EDT Telemedicine [facility] MED & PEDS [address] [place] [address] Linda Pelaez RN [address] [place] [address] 04/19/2025 2:00 PM EDT Office Visit [facility] [address] [place] [address] Chato Thomason MD [address] [place] [address] documented as of this encounter Visit Diagnoses Diagnosis Squamous cell carcinoma of larynx (CMS/HCC) Malignant neoplasm of larynx, unspecified site documented in this encounter Additional Health Concerns Assessment Noted Time PHQ-9 Depression Total Score: 19 024 3:44 PM EDT documented as of this encounter Care Teams Area Manager Relationship Specialty Start Date End Date Chato Thoamson MD [address] [place] [address] PCP - General Internal Medicine 10/27/18 Mackenzie Roland Reporter Anchor 07/09/24 Angela Pozo Reporter Anchor 07/09/24 [facility] 06/12/23 documented as of this encounter
--- OUTSIDE RECORDS SUMMARY | 2025-02-23 09:12 | XMS_ITS | Encounter Summary ---
Author Organization [employer] Address [address] [facility] 7 [place] [address] Care Team Providers Care Entertainment Centre Manager Name Role Phone Chato Thomason MD Primary Care Provider [phone] Reason for Visit * Reason Onset Date Comments pt1 01/26/2025 Encounter Details Date Type Department Care Team ([facility] st Contact Info) Description 01/26/2025 Telephone [facility] MEDICINE [address] [place], [place] [phone] Chato Thomason MD [address] [place] [address] pt1 Social History Tobacco Use Types Packs/Day Years [...] * Telephone Encounter - Lupe Lopez - 01/26/2025 8:14 AM EDT Patient calling requesting PT1 Home Address verified: Y/N: Yes Provider name or facility name: [address] [place] [address] Escort needed: Y/N: Yes Do you have a wheelchair: Y/N: No If yes- Manual or electric: n/a Visits: (2x monthly) documented in this encounter Plan of Treatment Upcoming Encounters Date Type Department Care Team (Late st Contact Info) Description 2025 11:00 AM EDT Telemedicine [facility] MED & PEDS [address] [place] [address] Linda Pelaez RN [address] [place] [address] 04/19/2025 2:00 PM EDT Office Visit [facility] MED & PEDS [address] [place] [address] Chato Thomason MD [address] [place] [address] documented as of this encounter Visit Diagnoses Not on filedocumented in this encounter Additional Health Concerns Assessment Noted Time PHQ-9 Depression Total Score: 19 024 3:44 PM EDT documented as of this encounter Care Teams Entertainment Centre Manager Relationship Specialty Start Date End Date Chato Thomason MD [address] [place] [address] PCP - General Internal Medicine 10/27/18 Mackenzie Roland Digital Imager 07/09/24 Angela Pozo Digital Imager 07/09/24 [facility] 06/12/23 documented as of this encounter
--- OUTSIDE RECORDS SUMMARY | 2025-02-23 09:12 | XMS_ITS | Encounter Summary ---
Author Organization [employer] Address [address] [facility] 7t [place] [address] Care Team Providers Care Benzene Worker Name Role Phone Chato Thomason MD Primary Care Provider [phone] Kelsey Minaya Unavailable Unavailable Encounter Details Date Type Department Care Team (Late st Contact Info) Description 11/05/[address] [facility] MEDICINE [address] [place] [address] Chato Thomason MD [address] [place] [address] Social History Tobacco Use Types Packs/Day Years [...] 2025 11:00 AM EDT Telemedicine [facility] MED & PEDS [address] [place] [address] Linda Pelaez, WALT [address] [place] [address] 04/19/2025 2:00 PM EDT Office Visit [facility] MED & PEDS [address] [place] [address] Chato Thomason MD [address] [place] [address] documented as of this encounter Visit Diagnoses Not on filedocumented in this encounter Care Teams Benzene Worker Relationship Specialty Start Date End Date Chato Thomason MD [address] [place] [address] PCP - General Internal Medicine 10/27/18 Kelsey Minaya Community Health Worker 06/08/24 07/07/24 Eliane Metzger Manager Cardiac CathReplanter 01/29/24 07/08/24 Mackenzie Roland Manager Cardiac Cath 07/09/24 Angela Pozo Manager Cardiac Cath 07/09/24 [facility] 06/12/23 documented as of this encounter
--- OUTSIDE RECORDS SUMMARY | 2025-02-23 09:12 | XMS_ITS | Encounter Summary ---
Author Organization [employer] Address [address] [place] [address] 7t [place] [address] Care Team Providers Care Wait Staff Name Role Phone Chato Thomason MD Primary Care Provider [phone] Encounter Details Date Type Department Care Team ([facility] st Contact Info) Description 12/02/[address] [facility] MED & PEDS [address] [place], [place] [phone] Chato Thomason MD [address] [place] [address] Neuropathic pain Social History Tobacco Use Types [...] Telemedicine [facility] MED & PEDS [address] [place] [address] Linda Pelaez RN [address] [place] [address] 04/19/2025 2:00 PM EDT Office Visit [facility] MED & PEDS [address] [place] [address] Chato Thomason MD [address] [place] [address] documented as of this encounter Visit Diagnoses Diagnosis Neuropathic pain documented in this encounter Additional Health Concerns Assessment Noted Time PHQ-9 Depression Total Score: 19 024 3:44 PM EDT documented as of this encounter Care Teams Wait Staff Relationship Specialty Start Date End Date Chato Thomason MD [address] [place] [address] PCP - General Internal Medicine 10/27/18 Mackenzie Roland Mash Processing Operator 9/13/24 Angela Pozo Mash Processing Operator 07/09/24 [facility] 06/12/23 documented as of this encounter
--- OUTSIDE RECORDS SUMMARY | 2025-02-23 09:12 | XMS_ITS | Encounter Summary ---
Author Organization [employer] Address [address] [place] [address] Care Team Providers Care Extension Specialist Name Role Phone Chato Thomason MD Primary Care Provider [phone] Kelsey Minaya Unavailable Unavailable Reason for Visit * Reason Onset Date Comments VNA Orders 07/28/2023 Encounter Details Date Type Department Care Team ([facility] st Contact Info) Description 07/28/2023 Telephone [facility] MED & PEDS [address] [place], [place] [phone] Chato Thomason MD [address] [place] [address] VNA Orders Social History Tobacco Use Types [...] - 07/28/2023 3:40 PM EDT Tc from [facility] requesting two VNA orders for: Face to Face Encounter Dated on 06/11/2023 (Please fax over office notes) Physician order Dated on 06/11/2023 [facility] states that orders have a 30 day time frame. Please fax over at [phone] Please If any questions please contact Anabela at [phone] documented in this encounter Plan of Treatment Upcoming Encounters Date Type Department Care Team ([facility] st Contact Info) Description 2025 11:00 AM EDT Telemedicine [facility] MED & PEDS [address] [place] [address] Linda Pelaez RN [address] [place] [address] 04/19/2025 2:00 PM EDT Office Visit [facility] MED & PEDS [address] [place] [address] Chato Thomason MD [address] [place] [address] documented as of this encounter Visit Diagnoses Not on filedocumented in this encounter Care Teams Extension Specialist Relationship Specialty Start Date End Date Chato Thomason MD [address] [place] [address] PCP - General Internal Medicine 10/27/18 Kelsey Minaya Community Health Worker 06/08/24 07/07/24 Eliane Metzger Orthopaedic SurgeonLocal Hazmat Driver 01/29/24 07/08/24 Mackenzie Roland Orthopaedic Surgeon 07/09/24 Angela Pozo Orthopaedic Surgeon 07/09/24 [facility] 06/12/23 documented as of this encounter
--- OUTSIDE RECORDS SUMMARY | 2025-02-23 09:12 | XMS_ITS | Encounter Summary ---
Author Organization [employer] Address [address] [facility] 7 [place] [address] Care Team Providers Care Turkish Rubber Name Role Phone Chato Thomason MD Primary Care Provider [phone] Reason for Visit * Reason Onset Date Comments Call Back Request 02/15/2025 Encounter Details Date Type Department Care Team ([facility] st Contact Info) Description 02/15/2025 Telephone [facility] MEDICINE [address] [place], [place] [phone] Chato Thomason MD [address] [place] [address] Call Back Request Social History Tobacco Use [...] encounter Miscellaneous Notes * Telephone Encounter - Elsie Block LPN - 02/22/2025 2:35 PM EDT Rx generated and faxed to [facility] as requested below TC to Angelica (mom). She is requesting #16F cullen catheter. Mom is requesting to get them from [facility]. Mom is also requesting a new referral for [place] (prior one was refused). It needs to say: [address] * Telephone Encounter - Brittany Mendez RN - 02/17/2025 11:33 AM EDT TC to Angelica (mom). She is requesting #16F cullen catheter. Mom is requesting to get them from [facility]. Mom is also requesting a new referral for [place] (prior one was refused). It needs to say: [address] * Telephone Encounter - Lupe Muellergo - 02/15/2025 8:15 AM EDT Tc from pt mom requesting a call back. Not info provided. [phone] documented in this encounter Plan of Treatment Upcoming Encounters Date Type Department Care Team ([facility] st Contact Info) Description 2025 11:00 AM EDT Telemedicine [facility] MED & PEDS [address] [place] [address] Linda Pelaez, WALT [address] [place] [address] 04/19/2025 2:00 PM EDT Office Visit [facility] MED & PEDS [address] [place] [address] Chato Thomason MD [address] [place] [address] documented as of this encounter Visit Diagnoses Not on filedocumented in this encounter Additional Health Concerns Assessment Noted Time PHQ-9 Depression Total Score: 19 024 3:44 PM EDT documented as of this encounter Care Teams Turkish Rubber Relationship Specialty Start Date End Date Chato Thomason MD [address] [place] [address] PCP - General Internal Medicine 10/27/18 Mackenzie Roland Profiler Operator 07/09/24 Angela Pozo Profiler Operator 07/09/24 [facility] 06/12/23 documented as of this encounter
--- OUTSIDE RECORDS SUMMARY | 2025-02-23 09:12 | XMS_ITS | Encounter Summary ---
Author Organization [employer] Address [address] [place] [address] [address] [place] [address] Care Team Providers Care Paper Hanger Name Role Phone Chato Thomason MD Primary Care Provider [phone] Reason for Referral * Consultation (Routine) - Closed Specialty Diagnoses / Procedures Referred By Contto singh Referred To Contact Dermatology Diagnoses Spongiotic dermatitis Chato Thomason MD [address] [place] [address] Phone: tel: fax: Gail Srinivasan [address] [place] [address] Phone: tel: fax: Referral ID Status Reason Start Date Expiration Date V isits Requested Visits Authorized [id number] Closed Specialty Services Required 08/25/2024 08/25/2025 1 1 Encounter Details Date Type Department Care Team ([facility] Contact Info) Description 08/24/2024 Orders Only [facility] MED & PEDS [address] [place], [place] [phone] Chato Thomason MD [address] [place], [place] [phone] Spongiotic dermatitis (Primary Dx) Social History Tobacco [...] 2025 11:00 AM EDT Telemedicine [facility] MED & PEDS [address] [place] [address] Linda Pelaez, WALT [address] [place] [address] 04/19/2025 2:00 PM EDT Office Visit [facility] MED & PEDS [address] [place] [address] Chato Thomason MD [address] [place] [address] Scheduled Referrals Name Type Priority Associated Diagnoses [...] documented as of this encounter Care Teams Paper Hanger Relationship Specialty Start Date End Date Chato Thomason MD [address] [place] [address] PCP - General Internal Medicine 10/27/18 Mackenzie Roland Upholsterer [employer] 07/09/24 Angela Pozo Upholsterer [employer] 07/09/24 [facility] 06/12/23 documented as of this encounter
--- OUTSIDE RECORDS SUMMARY | 2025-02-23 09:12 | XMS_ITS | Encounter Summary ---
Author Organization [employer] Address [address] [facility] 7 [place] [address] Care Team Providers Care Developer Programmer Analyst Name Role Phone Chato Thomason MD Primary Care Provider [phone] Reason for Visit * Reason Onset Date Comments PT1 02/04/2025 Encounter Details Date Type Department Care Team ([facility] st Contact Info) Description 02/04/[address] [facility] MEDICINE [address] [place], [place] [phone] Chato Thomason MD [address] [place] [address] PT1 Social History Tobacco Use Types Packs/Day [...] * Telephone Encounter - Lupe Lopez - 02/04/2025 8:04 AM EDT Patient calling requesting PT1 Home Address verified: Y/N: Yes Provider name or facility name: [address] [place] [address] Escort needed: Y/N: Yes Do you have a wheelchair: Y/N: No If yes- Manual or electric: N/A Visits: ( 1x weekly) Patient calling requesting PT1 Home Address verified: Y/N: Yes Provider name or facility name: [address] [place] [address] Escort needed: Y/N: Yes Do you have a wheelchair: Y/N: No If yes- Manual or electric: N/A Visits: ( 1x month) documented in this encounter Plan of Treatment Upcoming Encounters Date Type Department Care Team ([facility] st Contact Info) Description 2025 11:00 AM EDT Telemedicine [facility] MED & PEDS [address] [place] [address] Linda Pelaez, RN [address] [place] [address] 04/19/2025 2:00 PM EDT Office Visit [facility] MED & PEDS [address] [place] [address] Chato Thomason MD [address] [place] [address] documented as of this encounter Visit Diagnoses Not on filedocumented in this encounter Additional Health Concerns Assessment Noted Time PHQ-9 Depression Total Score: 19 024 3:44 PM EDT documented as of this encounter Care Teams Developer Programmer Analyst Relationship Specialty Start Date End Date Chato Thomason MD [address] [place] [address] PCP - General Internal Medicine 10/27/18 Mackenzie Roland Furnace Tapper 07/09/24 Angela Pozo Furnace Tapper 07/09/24 [facility] 06/12/23 documented as of this encounter
--- OUTSIDE RECORDS SUMMARY | 2025-02-23 09:12 | XMS_ITS | Encounter Summary ---
Author Organization [employer] Address 75 [facility] 7 [place] [address] Care Team Providers Care Data Collection Associate Name Role Phone Cahto Thomason MD Primary Care Provider [phone] Reason for Visit * Reason Onset Date Comments Med Refill 02/15/2025 Encounter Details Date Type Department Care Team ([facility] st Contact Info) Description 02/15/2025 Telephone [facility] MEDICINE [address] [place], [place] [phone] Chato Thomason MD [address] [place] [address] Med Refill Social History Tobacco Use Types [...] Telephone Encounter - Lupe Lopez - 02/15/2025 8:12 AM EDT TC from pt requesting medication refill. Medications needing refill : traZODone (Desyrel) 150 MG tablet To be sent to: [facility] documented in this encounter Plan of Treatment Upcoming Encounters Date Type Department Care Team ([facility] st Contact Info) Description 2025 11:00 AM EDT Telemedicine [facility] MED & PEDS [address] [place] [address] Linda Pelaez RN [address] [place] [address] 04/19/2025 2:00 PM EDT Office Visit [facility] MED & PEDS [address] [place] [address] Chato Thomason MD [address] [place] [address] documented as of this encounter Visit Diagnoses Not on filedocumented in this encounter Additional Health Concerns Assessment Noted Time PHQ-9 Depression Total Score: 19 024 3:44 PM EDT documented as of this encounter Care Teams Data Collection Associate Relationship Specialty Start Date End Date Chato Thomason MD [address] [place] [address] PCP - General Internal Medicine 10/27/18 Mackenzie Roland Fire Protection Specialist 07/09/24 Angela Pozo Fire Protection Specialist 07/09/24 [facility] 06/12/23 documented as of this encounter
--- OUTSIDE RECORDS SUMMARY | 2025-02-23 09:12 | XMS_ITS | Encounter Summary ---
Author Organization [employer] Address 75 [facility] 7 [place] [address] Care Team Providers Care Crusher Loader Equipment Operator Name Role Phone Chato Thomason MD Primary Care Provider [phone] Reason for Visit * Reason Onset Date Comments Referral 11/30/2024 Medication Question 11/30/2024 Encounter Details Date Type Department Care Team ([facility] st Contact Info) Description 11/30/2024 Telephone [facility] MEDICINE [address] [place] [address] Chato Thomason MD [address] [place] [address] Referral; Medication Question Social History Tobacco Use [...] the pt is in. Contact pt at [phone] documented in this encounter Plan of Treatment Upcoming Encounters Date Type Department Care Team (Late st Contact Info) Description 2025 11:00 AM EDT Telemedicine [facility] MED & PEDS [address] [place] [address] Linda Pelaez, WALT [address] [place] [address] 04/19/2025 2:00 PM EDT Office Visit [facility] MED & PEDS [address] [place] [address] Chato Thomason MD [address] [place] [address] documented as of this encounter Visit Diagnoses Not on filedocumented in this encounter Additional Health Concerns Assessment Noted Time PHQ-9 Depression Total Score: 19 024 3:44 PM EDT documented as of this encounter Care Teams Crusher Loader Equipment Operator Relationship Specialty Start Date End Date Chato Thomason MD [address] [place] [address] PCP - General Internal Medicine 10/27/18 Mackenzie Roland Control Integration Engineer 07/09/24 Angela Pozo Control Integration Engineer 07/09/24 [facility] 06/12/23 documented as of this encounter
--- OUTSIDE RECORDS SUMMARY | 2025-02-23 09:12 | XMS_ITS | Encounter Summary ---
Author Organization [employer] Address [address] [place] [address] 7[address] [place] [address] Care Team Providers Care Investor Relations Director Name Role Phone Chato Thomason MD Primary Care Provider [phone] Reason for Visit * Reason Onset Date Comments Med Refill 02/21/2025 Encounter Details Date Type Department Care Team ([facility] Contact Info) Description 02/21/2025 Refill [facility] MED & PEDS [address] [place] [address] Linda Pelaez, RN [address] [place] [address] Anxiety Social History Tobacco Use Types Packs/Day [...] [facility] [address] [place] [address] Linda Pelaez, WALT [address] [place] [address] 04/19/2025 2:00 PM EDT Office Visit [facility] MED & PEDS [address] [place] [address] Chato Thomason MD [address] [place] [address] documented as of this encounter Visit Diagnoses Diagnosis Anxiety Anxiety state, unspecified documented in this encounter Additional Health Concerns Assessment Noted Time PHQ-9 Depression Total Score: 19 024 3:44 PM EDT documented as of this encounter Care Teams Investor Relations Director Relationship Specialty Start Date End Date Chato Thomason MD [address] [place] [address] PCP - General Internal Medicine 10/27/18 Mackenzie Roland Fish Processing Supervisor 07/09/24 Angela Pozo Fish Processing Supervisor 07/09/24 [facility] 06/12/23 documented as of this encounter
== END 2025-02-23 08:50 | disposition home or self-care (01) ==
LOC: HO.NEURO 08:49
PROVIDERS: PCP Internal Medicine; Visit Provider Registered Nurse Emergency
DX: G62.9 Polyneuropathy, unspecified (principal); M54.16 Radiculopathy, lumbar region
CPT/HCPCS: 95886; 95909

== ENCOUNTER → 2025-02-23 08:51 | Outpatient (BNV) | payer MEDICAID, SELFPAY | PROVIDERS: PCP Internal Medicine; Visit Provider Physical Medicine & Rehabilitation | DX: R20.2 Paresthesia of skin (principal); G62.89 Other specified polyneuropathies | CPT/HCPCS: 95886; 95909 ==

== ENCOUNTER 2025-03-09 14:16 | Outpatient (AMB) | payer MEDICAID, SELFPAY ==
--- OUTSIDE RECORDS SUMMARY | 2025-03-09 14:19 | XMS_ITS | Clinical Summary ---
Author Organization [address] [facility] Address [address] [place] [address] Phone Care Team Providers Care Conveyor Attendant Name Role Phone Physician, No Pcp Primary Care Provider Unavaila ble Active Problems Problem Noted Date Diagnosed Date Lymphatic edema 09/30/2024 Encounters Date Type Department Care Team Description 01/25/2025 12:30 PM EDT Treatment [facility] [address] [place] [phone] Gijzen, Nilam P, OTR/L Lymphedema of face (Primary Dx) 01/11/2025 12:30 PM EDT Treatment [facility] [address] [place] [phone] Gijzen, Nilam P, OTR/L Lymphedema of face (Primary Dx) 12/30/2024 1:00 PM EST Treatment [facility] [address] [place] [address] [phone] Gijzen, Nilam P, OTR/L Lymphatic edema (Primary Dx) 12/21/2024 12:30 PM EST Treatment [facility] [address] [place] [address] [phone] Gijzen, Nilam P, OTR/L Lymphedema of face (Primary Dx) 12/15/2024 12:30 PM EST Treatment [facility] [address] [place] [phone] GiNilam marin P, OTR/L Lymphedema of face [...] posture General On track(2024 2:54 PM EDT) No Nilam Botello, OTR/L Note: STG: Patient [...] degrees Insurance MEDICAID - [place] Care Teams Conveyor Attendant Relationship Specialty Start Date End Date Physician, No Pcp PCP - General 09/22/24
--- OUTSIDE RECORDS SUMMARY | 2025-03-09 14:19 | XMS_ITS | Encounter Summary ---
Author Organization [employer] Address [address] [place] [address] [place] [address] Care Team Providers Care Sales Route Driver Helper Name Role Phone Chato Thomason MD Primary Care Provider [phone] Reason for Referral * Consultation (Routine) - Closed Specialty Diagnoses / Procedures Referred By Contto t Referred To Contact Pain Medicine Diagnoses Squamous cell carcinoma of larynx (CMS/HCC) Dysphagia, unspecified type Chato Thomason MD [address] [place] [address] Phone: tel: fax: Moe Luna MD [address] [place] [address] [place] [address] Phone: tel: fax: Referral ID Status Reason Start Date Expiration Date V isits Requested Visits Authorized [id number] Closed Specialty Services Required 12/20/2024 12/20/2025 1 1 Encounter Details Date Type Department Care Team (Late st Contact Info) Description 12/20/2024 Orders Only [facility] MEDICINE [address] [place] [address] Chato Thomason MD [address] [place], [place] [phone] Squamous cell carcinoma of larynx (CMS/HCC) (Primary [...] Upcoming Encounters Date Type Department Care Team ([facility] st Contact Info) Description 2025 11:00 AM EDT Telemedicine [facility] MED & PEDS [address] [place] [address] Linda Pelaez, RN [address] [place] [address] 04/19/2025 2:00 PM EDT Office Visit [facility] MED & PEDS [address] [place] [address] Chato Thomason MD [address] [place] [address] 05/25/2025 3:15 PM EDT Office Visit [facility] ADULT DENTAL [address] [place] [address] Joe Nash DMD [address] [place] [address] Scheduled Referrals Name Type Priority Associated Diagnoses [...] as of this encounter Care Teams Sales Route Driver Helper Relationship Specialty Start Date End Date Chato Thomason MD [address] [place] [address] PCP - General Internal Medicine 10/27/18 Mackenzie Roland Semiautomatic Taper Operator 07/09/24 Angela Pozo Semiautomatic Taper Operator 07/09/24 [facility] 06/12/23 documented as of this encounter
--- OUTSIDE RECORDS SUMMARY | 2025-03-09 14:19 | XMS_ITS | Encounter Summary ---
Author Organization [employer] Address [address] [facility] 7 [place] [address] Care Team Providers Care Cut Out And Marking Machine Operator Name Role Phone Chato Thomason MD Primary Care Provider [phone] Reason for Visit * Reason Onset Date Comments Med Refill 02/24/2025 Encounter Details Date Type Department Care Team ([facility] st Contact Info) Description 02/24/2025 Telephone [facility] MEDICINE [address] [place] [address] Chato Thomason MD [address] [place] [address] Med Refill Social History Tobacco Use Types [...] * Telephone Encounter - Lupe Lopez - 02/24/2025 8:04 AM EDT TC from pt requesting medication refill. Medications needing refill : oxyCODONE (Roxicodone) 15 MG immediate release tablet To be sent to: [facility] documented in this encounter Plan of Treatment Upcoming Encounters Date Type Department Care Team ([facility] st Contact Info) Description 2025 11:00 AM EDT Telemedicine [facility] MED & PEDS [address] [place] [address] Linda Pelaez, WALT [address] [place] [address] 04/19/2025 2:00 PM EDT Office Visit [facility] MED & PEDS [address] [place] [address] Chato Thomason MD [address] [place] [address] 05/25/2025 3:15 PM EDT Office Visit [facility] ADULT DENTAL [address] [place] [address] Joe Nash, KARIN [address] [place] [address] documented as of this encounter Visit Diagnoses Not on filedocumented in this encounter Additional Health Concerns Assessment Noted Time PHQ-9 Depression Total Score: 19 024 3:44 PM EDT documented as of this encounter Care Teams Cut Out And Marking Machine Operator Relationship Specialty Start Date End Date Chato Thomason MD [address] [place] [address] PCP - General Internal Medicine 10/27/18 Mackenzie Roland Recording Studio Intern 07/09/24 Angela Pozo Recording Studio Intern 07/09/24 [facility] 06/12/23 documented as of this encounter
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
--- OUTSIDE RECORDS SUMMARY | 2025-03-09 14:19 | XMS_ITS | Encounter Summary ---
Author Organization [employer] Address [address] [place] [address] [address] [place] [address] Care Team Providers Care Consultant Dietitian Name Role Phone Chato Thomason MD Primary Care Provider +1 [phone] Kelsey Minaya Unavailable Reason for Referral * Consultation (Routine) - Closed Specialty Diagnoses / Procedures Referred By Maryana singh Referred To Contact Podiatry Diagnoses Nail problem Chato Thomasno MD [address] [place] [address] Phone: tel: fax: Referral ID Status Reason Start Date Expiration Date V isits Requested Visits Authorized [id number] Closed Specialty Services Required 06/11/2024 06/11/2025 1 1 Encounter Details Date Type Department Care Team ([facility] Contact Info) Description 06/11/2024 Orders Only [facility] CHC MED & PEDS [address] [place] [address] Chato Thomason MD [address] [place] [address] Nail problem (Primary Dx); Anxiety Social History [...] Info) Description 2025 11:00 AM EDT Telemedicine [facility] MED & PEDS [address] [place] [address] Linda Pelaez RN [address] [place] [address] 04/19/2025 2:00 PM EDT Office Visit [facility] MED & PEDS [address] [place] [address] Chato Thomason MD [address] [place] [address] 05/25/2025 3:15 PM EDT Office Visit [facility] ADULT DENTAL [address] [place] [address] Joe Nash DMD [address] [place] [address] Scheduled Referrals Name Type Priority Associated Diagnoses Orde r Schedule Referral to Podiatry Outpatient Referral Routine Nail problem Expected: 06/11/2024 (Approximate), Expires: 06/11/2025 documented as of this encounter Visit Diagnoses Diagnosis Nail problem- Primary Other specified disease of nail Anxiety Anxiety state, unspecified documented in this encounter Care Teams Consultant Dietitian Relationship Specialty Start Date End Date Chato Thomason MD [address] [place] [address] PCP - General Internal Medicine 10/27/18 Kelsey Minaya Community Health Worker 06/08/2407/07 Eliane Metzger Junior Systems AnalystPersonal Injury Attorney 01/29/24 07/08/24 Mackenzie Roland Junior Systems Analyst 07/09/24 Angela Pozo Junior Systems Analyst 07/09/24 [facility] 06/12/23 documented as of this encounter
--- OUTSIDE RECORDS SUMMARY | 2025-03-09 14:19 | XMS_ITS | Encounter Summary ---
Author Organization [employer] Address [address] [facility] 7 [place] [address] Care Team Providers Care Refrigeration Insulator Name Role Phone Chato Thomason MD Primary Care Provider +1 [phone] Reason for Visit * Reason Onset Date Comments PT1 12/28/2024 Encounter Details Date Type Department Care Team ([facility] st Contact Info) Description 12/28/2024 Telephone [facility] MEDICINE [address] [place] [address] Chato Thomason MD [address] [place] [address] PT1 Social History Tobacco Use Types Packs/Day [...] Y/N: Yes Provider name or facility name: [address] [place] [address] [place] [address] - Pain Management Escort needed: Y/N: Yes Do you have a wheelchair: Y/N: No If yes- Manual or electric: N/A Visits: (2x monthly) documented in this encounter Plan of Treatment Upcoming Encounters Date Type Department Care Team ([facility] st Contact Info) Description 2025 11:00 AM EDT Telemedicine [facility] MED & PEDS [address] [place] [address] Linda Pelaez RN [address] [place] [address] 04/19/2025 2:00 PM EDT Office Visit [facility] MED & PEDS [address] [place] [address] Chato Thomason MD [address] [place] [address] 05/25/2025 3:15 PM EDT Office Visit [facility] CHC ADULT DENTAL [address] [place] [address] Joe Nash DMD [address] [place] [address] documented as of this encounter Visit Diagnoses Not on filedocumented in this encounter Additional Health Concerns Assessment Noted Time PHQ-9 Depression Total Score: 19 024 3:44 PM EDT documented as of this encounter Care Teams Refrigeration Insulator Relationship Specialty Start Date End Date Chato Thomason MD [address] [place] [address] PCP - General Internal Medicine 10/27/18 Mackenzie Roland Raisin Separator Operator 07/09/24 Angela Pozo Raisin Separator Operator 07/09/24 [facility] 06/12/23 documented as of this encounter
--- OUTSIDE RECORDS SUMMARY | 2025-03-09 14:19 | XMS_ITS | Encounter Summary ---
Author Organization [employer] Address [address] [facility] 7 [place] [address] Care Team Providers Care Engineering Vice President Name Role Phone Chato Thomason MD Primary Care Provider [phone] Reason for Visit * Reason Onset Date Comments Med Refill 01/10/2025 Encounter Details Date Type Department Care Team ([facility] st Contact Info) Description 01/10/2025 Telephone [facility] MEDICINE [address] [place] [address] Chato Thomason MD [address] [place] [address] Med Refill Social History Tobacco Use Types [...] immediate release tablet To be sent to: [facility] - [place], [place] - [address] [place] [address] documented in this encounter Plan of Treatment Upcoming Encounters Date Type Department Care Team ([facility] st Contact Info) Description 2025 11:00 AM EDT Telemedicine [facility] MED & PEDS [address] [place] [address] Linda Pelaez RN [address] [place] [address] 04/19/2025 2:00 PM EDT Office Visit [facility] MED & PEDS [address] [place] [address] Chato Thomason MD [address] [place] [address] 05/25/2025 3:15 PM EDT Office Visit [facility] CHC ADULT DENTAL [address] [place] [address] Joe Nash DMD [address] [place] [address] documented as of this encounter Visit Diagnoses Not on filedocumented in this encounter Additional Health Concerns Assessment Noted Time PHQ-9 Depression Total Score: 19 024 3:44 PM EDT documented as of this encounter Care Teams Engineering Vice President Relationship Specialty Start Date End Date Chato Thomason MD [address] [place] [address] PCP - General Internal Medicine 10/27/18 Mackenzie Roland Through Operator 07/09/24 Angela Pozo Through Operator 07/09/24 [facility] 06/12/23 documented as of this encounter
--- NOTE | 2025-03-09 14:20 | A.OFFVIS_ITS ---
Vital Signs 03/09/25 14:20 03/09/25 14:22 Weight 279 lb BP 125/60 Blood Pressure Location Rt brachial Position Sitting Pulse Oximetry (%) 95 Intake Visit Reasons: EMG FOLLOW UP Allergies lisinopril Allergy (Unknown, Verified 01/14/25 15:14) Swelling Medication List - Last Reconciled 03/09/25 by Kenyatta Keyes, ANGEL acetaminophen 480 mg PO Q6H PRN albuterol sulfate 90 mcg/actuation (Ventolin HFA) 2 puffs inhalation Q6H PRN dupilumab (Dupixent) 300 mg subcut Q2W fluticasone propion-salmeterol 500-50 mcg/dose (Advair Diskus) 1 inh inhalation Q12H hydroxyzine HCl 50 mg PO BEDTIME lorazepam 1 mg PO BID PRN methadone 120 mg PO DAILY oxycodone 7.5 mg PO Q6H PRN trazodone 50 mg PO BEDTIME PRN HPI Comments Details: The patient is a 59-year-old male presenting with chemotherapy-induced peripheral neuropathy and chronic pain. His neuropathy began before chemotherapy but became severe following the treatment in February 2023. The patient reports burning and tingling pain in his feet, unrelieved by current pharmacological treatments such as gabapentin, methadone, and oxycodone. The pain, described as debilitating, has been progressive and impacts his functional ability. Prior treatments have been ineffective, and the patient has not worked since his symptoms intensified. The neuropathy is attributed to chemotherapy-induced nerve damage, a recognized complication of such treatment protocols. Recent EMG reviewed, results as per below - Onset and Timing: Initiated pre-chemotherapy but worsened significantly post- treatment in February 2023. - Quality and Character: Burning and tingling sensations. - Primary Location: Feet. - Areas of Radiation: Not specified beyond feet. - Exacerbating Factors: Progressive worsening noted, unresponsive to currently administered medications. - Relieving Factors: None identified; current pharmacotherapy ineffective. - Interference with Activities: Significant impact on daily activities and work capability, unrelieved at present with existing treatment modalities. - Affect: Persistent and debilitating pain negatively influencing patient?s life quality. - Analgesia: Current regimen includes gabapentin, methadone, and oxycodone; all providing inadequate relief. - Adverse Effects: No specific side effects reported from current medications. - Activities of Daily Living: Severely impacted, with patient unable to return to work; goal is to alleviate pain to regain functional capability. - Aberrant Drug-Related Behaviors: No aberrant behaviors reported or indicated in medication usage. [facility] Medical History (Updated 03/09/25 @ 16:38 by Kerrie Tuttle APRN, FAWN) Severe episode of recurrent major depressive disorder Fistula GERD (gastroesophageal reflux disease) Dehiscence of wound Squamous cell carcinoma of larynx Osteoarthritis Hypertension Hypercholesterolemia COPD (chronic obstructive pulmonary disease) Simple chronic bronchitis Surgical History (Updated 01/14/25 @ 14:02 by Juju Raymond) Hx of laryngectomy Social History Substance Use Type: Other Review of Systems Const Details: - Neurological: Reports burning and tingling in the feet. - Musculoskeletal: Reports chronic pain with significant impact on function. Physical Exam Vital Signs: Last Vital Signs BP 125/60 03/09/25 14:22 Pulse Ox 95 03/09/25 14:22 General: awake, alert, oriented. Answers questions appropriately. Fully engaged in examination. Skin: warm, dry, intact. Scars from previous surgeries on the chest and left side neck. Lymphatic: Evidence of lymphedema in the neck area. HEENT: Normocephalic. Hearing intact. +Trach. Cardiac: External chest normal in appearance. Respiratory: No cough, audible wheezing or stridor. Abdomen: without gross distension. +feeding tube. MS: No obvious swelling or deformities. Neurological: Oriented to person, place, time and situation. Thought process intact. No gait abnormalities appreciated. Psychiatric: Appropriate mood and affect. Good judgment and insight. Results Reviewed Results Reviewed: 02/23/25 FINDINGS: Right peroneal nerve showed absent response. Right tibial nerve showed very small amplitudes, with mildly prolonged distal latency and slow conduction velocity. Left tibial nerve showed normal distal latency, small amplitude and slow conduction velocity. Bilateral sural nerves showed absent response. Concentric needle EMG was performed in selected muscles of the bilateral lower extremity. Study did not reveal signs of electric abnormalities as shown in the table above. IMPRESSION: 1. This is an abnormal study. 2. 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 3. There is no electrodiagnostic evidence for lumbosacral plexopathy, or lumbar radiculopathy. Assessment & Plan Assessment & Plan (1) Chronic pain syndrome: Code(s): G89.4 - Chronic pain syndrome Category: Medical (2) Anterior neck pain: Code(s): M54.2 - Cervicalgia Category: Medical (3) Other chronic postoperative pain: Code(s): G89.28 - Other chronic postprocedural pain Category: Medical (4) Peripheral neuropathy: Code(s): G62.9 - Polyneuropathy, unspecified Category: Medical (5) Lumbar radiculopathy: Code(s): M54.16 - Radiculopathy, lumbar region Category: Medical (6) Chemotherapy-induced neuropathy: Code(s): G62.0 - Drug-induced polyneuropathy; T45.1X5A - Adverse effect of antineoplastic and immunosuppressive drugs, initial encounter Category: Medical Plan The management plan for the patient's severe chemotherapy-induced peripheral neuropathy involves considering spinal cord stimulation as pharmacotherapy has been ineffective. Initiating this intervention involves an insurance-mandated mental health evaluation and a one-week trial of a spinal stimulator, which will be temporarily placed to assess pain relief. Success in this trial could lead to a permanent implant. This treatment aims to allow modulation of pain signals providing relief. Prior procedures, consents, and potential outcomes were discussed comprehensively with the patient, ensuring transparent consent and understanding of all stages involved. I discussed with the patient the severity of the chemotherapy-induced peripheral neuropathy and the inefficacy of current pharmacological treatments. The patient expressed interest in surgical management through a spinal cord stimulator. I explained the process of neuromodulation, the steps involved, including mental health evaluation and a one-week trial before a potential permanent implant. Detailed risks, benefits, alternatives, and likelihood of success were reviewed. The patient's understanding was confirmed, and consent was informally obtained to proceed with the necessary evaluations and trials. Follow-ups will be arranged post-evaluation to advance with further management. Plan for fluoroscopy guided Nevro SCS trial with anesthesia. Patient was informed and verbally consented to the use of an ambient scribe for clinic note documentation during this visit. Patient Instructions: - Undergo a mental health evaluation as required for the spinal cord stimulator trial. Patient was given contact information for [employer]. - Prepare for the one-week trial procedure of spinal cord stimulation as discussed. - Monitor and report on relief of pain during the trial period. - Contact us immediately in case of any concerns or unexpected symptoms post- procedure. - Assist family member understanding and support regarding the treatment and procedure. - Follow up as planned post-trial for further discussions on implant decisions. Coding Level of Care Code Est Pt Level 3 (21174) Complex EM visit Add On G2211 Diagnoses Chronic pain syndrome G89.4 Anterior neck pain M54.2 Other chronic postoperative pain G89.28 Peripheral neuropathy G62.9 Lumbar radiculopathy M54.16 Chemotherapy-induced neuropathy G62.0; T45.1X5A
--- OUTSIDE RECORDS SUMMARY | 2025-03-09 14:20 | XMS_ITS | Encounter Summary ---
Author Organization [employer] Address [address] [facility] 7 [place] [address] Care Team Providers Care Log Rider Name Role Phone Chato Thomason MD Primary Care Provider [phone] Kelsey Minaya Unavailable Encounter Details Date Type Department Care Team (Late st Contact Info) Description 11/05/2023 Abstract [facility] MEDICINE [address] [place] [address] Chato Thomason MD [address] [place], [place] [phone] Social History Tobacco Use Types Packs/Day Years [...] [facility] MED & PEDS [address] [place] [address] Linda Pelaez RN [address] [place] [address] 04/19/2025 2:00 PM EDT Office Visit [facility] MED & PEDS [address] [place] [address] Chato Thomason MD [address] [place] [address] 05/25/2025 3:15 PM EDT Office Visit [facility] ADULT DENTAL [address] [place] [address] Joe Nash DMD [address] [place] [address] documented as of this encounter Visit Diagnoses Not on filedocumented in this encounter Care Teams Log Rider Relationship Specialty Start Date End Date Chato Thomason MD [address] [place] [address] PCP - General Internal Medicine 10/27/18 Kelsey Minaya Community Health Worker 06/08/2407/07 Eliane Metzger Research Program ManagerBrand Coordinator 01/29/24 07/08/24 Mackenzie Roland Research Program Manager 07/09/24 Angela Pozo Research Program Manager 07/09/24 [facility] 06/12/23 documented as of this encounter
--- OUTSIDE RECORDS SUMMARY | 2025-03-09 14:20 | XMS_ITS | Encounter Summary ---
Author Organization [employer] Address [address] [facility] 7 [place] [address] Care Team Providers Care Driver'S Education Instructor Name Role Phone Chato Thomason MD Primary Care Provider [phone] Reason for Visit * Reason Onset Date Comments Call Back Request 07/26/2024 Encounter Details Date Type Department Care Team ([facility] st Contact Info) Description 07/26/2024 Telephone [facility] MEDICINE [address] [place] [address] Chato Thomason MD [address] [place] [address] Call Back Request Social History Tobacco Use [...] [facility] requesting status on referral for [facility] health stating it was discussedduring last visit. Please contact Mackenzie at [phone]. documented in this encounter Plan of Treatment Upcoming Encounters Date Type Department Care Team ([facility] st Contact Info) Description 2025 11:00 AM EDT Telemedicine [facility] MED & PEDS [address] [place] [address] Linda Pelaez RN [address] [place] [address] 04/19/2025 2:00 PM EDT Office Visit [facility] MED & PEDS [address] [place] [address] Chato Thomason MD [address] [place] [address] 05/25/2025 3:15 PM EDT Office Visit [facility] ADULT DENTAL [address] [place] [address] Joe Nash DMD [address] [place] [address] documented as of this encounter Visit Diagnoses Not on filedocumented in this encounter Care Teams Driver'S Education Instructor Relationship Specialty Start Date End Date Chato Thomason MD [address] [place] [address] PCP - General Internal Medicine 10/27/18 Mackenzie Roland Impregnating Machine Operator 07/09/24 Angela Pozo Impregnating Machine Operator 07/09/24 [facility] 06/12/23 documented as of this encounter
--- OUTSIDE RECORDS SUMMARY | 2025-03-09 14:20 | XMS_ITS | Encounter Summary ---
Author Organization [employer] Address [address] [place] [address] [address] [address] Care Team Providers Care Lock Setter Name Role Phone Chato Thomason MD Primary Care Provider [phone] Reason for Referral * Consultation (Routine) - Closed Specialty Diagnoses / Procedures Referred By Maryana singh Referred To Contact Dermatology Diagnoses Spongiotic dermatitis Chato Thomason MD [address] [place] [address] Phone: tel: fax: Gail Srinivasan [address] [place] [address] Phone: tel: fax: Referral ID Status Reason Start Date Expiration Date V isits Requested Visits Authorized [id number] Closed Specialty Services Required 08/25/2024 08/25/2025 1 1 Encounter Details Date Type Department Care Team ([facility] Contact Info) Description 08/24/2024 Orders Only [facility] CHC MED & PEDS [address] [place], [place] [phone] Chato Thomason MD [address] [place], [place] [phone] Spongiotic dermatitis (Primary Dx) Social History Tobacco [...] Upcoming Encounters Date Type Department Care Team ([facility] st Contact Info) Description 2025 11:00 AM EDT Telemedicine [facility] MED & PEDS [address] [place] [address] Linda Pelaez RN [address] [place] [address] 04/19/2025 2:00 PM EDT Office Visit [facility] MED & PEDS [address] [place] [address] Chato Thomason MD [address] [place] [address] 05/25/2025 3:15 PM EDT Office Visit [facility] CHC ADULT DENTAL [address] [place] [address] Joe Nash, DMD [address] [place] [address] Scheduled Referrals Name Type Priority Associated Diagnoses [...] documented as of this encounter Care Teams Lock Setter Relationship Specialty Start Date End Date Chato Thomason MD [address] [place] [address] PCP - General Internal Medicine 10/27/18 Mackenzie Roland Elementary Assistant Principal 07/09/24 Angela Pozo Elementary Assistant Principal 07/09/24 [facility] 06/12/23 documented as of this encounter
--- OUTSIDE RECORDS SUMMARY | 2025-03-09 14:20 | XMS_ITS | Encounter Summary ---
Author Organization [employer] Address [address] 7t [place] [address] Care Team Providers Care Client Success Specialist Name Role Phone Chato Thomason MD Primary Care Provider [phone] Kelsey Minaya Unavailable Encounter Details Date Type Department Care Team ([facility] st Contact Info) Description 06/24/2024 Orders Only [facility] CHC MED & PEDS [address] [place], [place] [phone] ProviderColleen MD Social History Tobacco Use Types [...] Description 2025 11:00 AM EDT Telemedicine [facility] MED & PEDS 505 [place] [address] Linda Pelaez, WALT 505 [place] [address] 04/19/2025 2:00 PM EDT Office Visit [facility] MED & PEDS 505 [place] [address] Chato Thomason MD 505 [place] [address] 05/25/2025 3:15 PM EDT Office Visit [facility] ADULT DENTAL 505 [place] [address] Joe Nash DMD 505 [place] [address] documented as of this encounter Procedures Procedure [...] filedocumented in this encounter Care Teams Client Success Specialist Relationship Specialty Start Date End Date Chato Thomason MD [address] [place] [address] PCP - General Internal Medicine 10/27/18 Kelsey Minaya Community Health Worker 06/08/2407/07 Eliane Metzger Punch Out Crew MemberRisk Developer 01/29/24 07/08/24 Mackenzie Roland Punch Out Crew Member 07/09/24 Angela Pozo Punch Out Crew Member 07/09/24 [facility] 06/12/23 documented as of this encounter
--- OUTSIDE RECORDS SUMMARY | 2025-03-09 14:20 | XMS_ITS | Encounter Summary ---
Author Organization [employer] Address [address] [facility] 7 [place] [address] Care Team Providers Care Extension Service Advisor Name Role Phone Chato Thomason MD Primary Care Provider [phone] Kelsey Minaya Unavailable Reason for Visit * Reason Onset Date Comments Call Back Request 05/03/2024 Encounter Details Date Type Department Care Team ([facility] st Contact Info) Description 05/03/2024 Telephone [facility] MEDICINE [address] [place] [address] Chato Thomason MD 505 [place], [place] [phone] Call Back Request Social History Tobacco Use [...] Miscellaneous Notes * Telephone Encounter - Familia Mohan - 05/03/2024 4:37 PM EDT Tc from Joyce with [facility] requesting call back to discuss new referral. Joyce stated carecoordination attempted to contact pt but he wasn't able to answer due to pt not being able to speak. Please contact Joyce at [phone]. documented in this encounter Plan of Treatment Upcoming Encounters Date Type Department Care Team (Late st Contact Info) Description 2025 11:00 AM EDT Telemedicine [facility] MED & PEDS [address] [place] [address] Linda Pelaez RN 505 [place] [address] 04/19/2025 2:00 PM EDT Office Visit [facility] MED & PEDS 505 [place] [address] Chato Thomason MD 505 [place] [address] 05/25/2025 3:15 PM EDT Office Visit [facility] ADULT DENTAL [address] [place] [address] Joe Nash DMD 505 [place] [address] documented as of this encounter Visit Diagnoses Not on filedocumented in this encounter Care Teams Extension Service Advisor Relationship Specialty Start Date End Date Chato Thomason MD [address] [place] [address] PCP - General Internal Medicine 10/27/18 Kelsey Minaya Community Health Worker 06/08/2407/07 Eliane Metzger Experiential TherapistVisitor Services Representative 01/29/24 07/08/24 Mackenzie Roland Experiential Therapist 07/09/24 Angela Pozo Experiential Therapist 07/09/24 [facility] 06/12/23 documented as of this encounter
--- OUTSIDE RECORDS SUMMARY | 2025-03-09 14:20 | XMS_ITS | Encounter Summary ---
Author Organization [employer] Address [address] [facility] 7 [place] [address] Care Team Providers Care Fleet Administrative Assistant Name Role Phone Chato Thomason MD Primary Care Provider [phone] Reason for Visit * Reason Onset Date Comments Medication Question 03/04/2025 Encounter Details Date Type Department Care Team ([facility] st Contact Info) Description 03/04/2025 Telephone [facility] MEDICINE 230 [place] [address] hCato Thomason MD 505 [place] [address] Medication Question Social History Tobacco Use Types [...] encounter Miscellaneous Notes * Telephone Encounter - Brittany Mendez RN - 03/04/2025 9:37 AM EDT Please see encounter from 03/04/25 * Telephone Encounter - Lupe Lopez - 03/04/2025 8:07 AM EDT Tc from pt mom requesting a call back regarding gabapentin (Neurontin) 250 MG/5ML solution. [phone] documented in this encounter Plan of Treatment Upcoming Encounters Date Type Department Care Team (Late st Contact Info) Description 2025 11:00 AM EDT Telemedicine [facility] MED & PEDS 505 [place] [address] Linda Pelaez, RN 505 [place] [address] 04/19/2025 2:00 PM EDT Office Visit [facility] MED & [facility]EDS [facility] [place] [address] Chato Thomason MD 505 [place] [address] 05/25/2025 3:15 PM EDT Office Visit [facility] ADULT DENTAL [address] [place] [address] Joe Nash, KARIN 505 [place] [address] documented as of this encounter Visit Diagnoses Not on filedocumented in this encounter Additional Health Concerns Assessment Noted Time PHQ-9 Depression Total Score: 19 024 3:44 PM EDT documented as of this encounter Care Teams Fleet Administrative Assistant Relationship Specialty Start Date End Date Chato Thomason MD 505 [place] [address] PCP - General Internal Medicine 10/27/18 Mackenzie Roland Breakfast Supervisor 07/09/24 Angela Pozo Breakfast Supervisor 07/09/24 [facility] 06/12/23 documented as of this encounter
--- OUTSIDE RECORDS SUMMARY | 2025-03-09 14:20 | XMS_ITS | Encounter Summary ---
Author Organization [employer] Address [address] [facility] 7 [place] [address] Care Team Providers Care Supervisor Painting Name Role Phone Chato Thomason MD Primary Care Provider [phone] Kelsey Minaya Unavailable Reason for Visit * Reason Onset Date Comments Hospital Follow-up 07/05/2024 Encounter Details Date Type Department Care Team (Late st Contact Info) Description 07/05/2024 Telephone [facility] MEDICINE [address] [place] [address] Chato Thomsaon MD [address] [place], [place] [phone] Hospital Follow-up Social History Tobacco Use Types [...] 07/19/2024 1:52 PM EDT Placed call to CHRISTINA Soriano regarding message from PCP. Bo was given direct number to communicate onFriday's on pt condition. Bo advised on confidential VM can be left if I am not available. Boagrees with plan. * Telephone Encounter - Nusrat Root RN - 07/19/2024 1:52 PM EDT ----- Message from Cahto Thomason MD sent at 07/16/2024 11:46 AM [...] the ED. His personal phone number is [phone]. We agreed to have him contact one of our team nurseif he has a concern about Mr Lawrence Childers and to update us at [facility] regularly on Friday on what Mr Lawrence Childers needs are. Bo does think that Mr Lawrence Childers would be better taken care of at a ID given the level of care he needs. * Telephone Encounter - Art Pena - 07/06/2024 12:12 PM EDT Tc from cayla with [facility] would like to PCP that they called crisis due to having suicidal ideation. Advised will leave message asd FYI. Please see previous message. Please contact at [phone] * Telephone Encounter - Ronaldo Larios - 07/05/2024 8:03 AM EDT Tc from pt requesting a HDF appt. Hospital: [facility] Date of admission: 06/26 Discharge date: 07/02 Diagnosed: Throat cancer had a procedure done to remove the cancer and is not able to come in physically it would need to be a Tele appt documented in this encounter Plan of Treatment Upcoming Encounters Date Type Department Care Team (Late st Contact Info) Description 2025 11:00 AM EDT Telemedicine [facility] MED & PEDS 505 [place] [address] Linda Pelaez RN 505 [place] [address] 04/19/2025 2:00 PM EDT Office Visit [facility] MED & PEDS 505 [place] [address] Chato Thomason MD 505 [place] [address] 05/25/2025 3:15 PM EDT Office Visit [facility] ADULT DENTAL 505 [place] [address] Joe Nash DMD 505 [place] [address] documented as of this encounter Visit Diagnoses Not on filedocumented in this encounter Care Teams Supervisor Painting Relationship Specialty Start Date End Date Chato Thomason MD [address] [place] [address] PCP - General Internal Medicine 10/27/18 Kelsey Minaya Community Health Worker 06/08/2407/07 Eliane Metzger Communication SpecialistPatient Service Representative 01/29/24 07/08/24 Cayla Roland Communication Specialist 07/09/24 Angela Pozo Communication Specialist 07/09/24 [facility] 06/12/23 documented as of this encounter
--- OUTSIDE RECORDS SUMMARY | 2025-03-09 14:20 | XMS_ITS | Encounter Summary ---
Author Organization [employer] Address [address] [place] [address], [place] [address] Care Team Providers Care Physician Scientist Name Role Phone Chato Thomason MD Primary Care Provider [phone] Kelsey Minaya Unavailable Encounter Details Date Type Department Care Team (Late Contact Info) Description 12/04/2022 Abstract [facility] MEDICINE [address] [place], [place] [phone] Chato Thomason MD 505 [place] [address] Social History Tobacco Use Types Packs/Day Years [...] Upcoming Encounters Date Type Department Care Team ([facility] Contact Info) Description 2025 11:00 AM EDT Telemedicine [facility] CHC MED & PEDS 505 [place], [place] [phone] Linda Pelaez, WALT 505 [place], [place] [phone] 04/19/2025 2:00 PM EDT Office Visit [facility] MED & PEDS 505 [place] [address] Chato Thomason MD 505 [place], [place] [phone] 05/25/2025 3:15 PM EDT Office Visit [facility] CHC ADULT DENTAL [address] [place], [place] [phone] Joe Nash DMD [address] [place], [place] [phone] documented as of this encounter Visit Diagnoses Not on filedocumented in this encounter Care Teams Physician Scientist Relationship Specialty Start Date End Date Chato Thomason MD 505 [place], [place] [phone] PCP - General Internal Medicine 10/27/18 Kelsey Minaya Community Health Worker 06/08/2407/07 Eliane Metzger Kennel WorkerRn Residential 01/29/24 07/08/24 Mackenzie Roland Kennel Worker 07/09/24 Angela Pozo Kennel Worker 07/09/24 [facility] 06/12/23 documented as of this encounter
--- OUTSIDE RECORDS SUMMARY | 2025-03-09 14:20 | XMS_ITS | Encounter Summary ---
Author Organization [employer] Address [address] [place] [address] Care Team Providers Care Resource Recovery Engineer Name Role Phone Chato Thomason MD Primary Care Provider [phone] Kelsey Minaya Unavailable Reason for Referral * Consultation (Routine) - Closed Specialty Diagnoses / Procedures Referred By Maryana singh Referred To Contact Occupational Therapy Diagnoses Lymphedema Chato Thomason MD 505 [place] [address] Phone: tel: fax: [facility] [address] Phone: tel: fax: Referral ID Status Reason Start Date Expiration Date V isits Requested Visits Authorized [id number] Closed Specialty Services Required 07/16/2024 07/16/2025 1 1 Encounter Details Date Type Department Care Team (Late st Contact Info) Description 07/07/2024 Orders Only [facility] CHC MED & PEDS [address] [place] [address] Chato Thomason MD [address] [place] [address] Anxiety (Primary Dx); Lymphedema Social History Tobacco [...] Upcoming Encounters Date Type Department Care Team ([facility] st Contact Info) Description 2025 11:00 AM EDT Telemedicine [facility] MED & PEDS [address] [place] [address] Linda Pelaez, WALT 505 [place] [address] 04/19/2025 2:00 PM EDT Office Visit [facility] MED & PEDS [address] [place] [address] Chato Thomason MD 505 [place] [address] 05/25/2025 3:15 PM EDT Office Visit [facility] ADULT DENTAL [address] [place] [address] Joe Nash, DMD [address] [place] [address] Scheduled Referrals Name Type Priority Associated Diagnoses Order Schedule Referral to Occupational Therapy Outpatient Referral Routine Lymphedema Expected: 07/16/2024 (Approximate), Expires: 07/16/2025 documented as of this encounter Visit Diagnoses Diagnosis Anxiety- Primary Anxiety state, unspecified Lymphedema Other noninfectious lymphedema documented in this encounter Care Teams Resource Recovery Engineer Relationship Specialty Start Date End Date Chato Thomason MD 505 [place] [address] PCP - General Internal Medicine 10/27/18 Kelsey Minaya Community Health Worker 06/08/2407/07 Eliane Metzger Controls DesignerOut Of Town Collection Clerk 01/29/24 07/08/24 Mackenzie Roland Controls Designer 07/09/24 Angela Pozo Controls Designer 07/09/24 [facility] 06/12/23 documented as of this encounter
--- OUTSIDE RECORDS SUMMARY | 2025-03-09 14:20 | XMS_ITS | Encounter Summary ---
Author Organization [employer] Address [address] [facility] [facility] [address] 7t [place] [address] Care Team Providers Care University Registrar Name Role Phone Chato Thomason MD Primary Care Provider [phone] Kelsey Minaya Unavailable Encounter Details Date Type Department Care Team ([facility] st Contact Info) Description 06/25/2024 Orders Only [facility] CHC MED & PEDS [address] [place], [place] [phone] ProviderColleen MD Social History Tobacco Use Types [...] Description 2025 11:00 AM EDT Telemedicine [facility] MED & PEDS 505 [place] [address] Linda Pelaez, WALT 505 [place] [address] 04/19/2025 2:00 PM EDT Office Visit [facility] MED & PEDS 505 [place] [address] Chato Thomason MD 505 [place] [address] 05/25/2025 3:15 PM EDT Office Visit [facility] ADULT DENTAL 505 [place] [address] Joe Nash DMD 505 [place] [address] documented as of this encounter Procedures Procedure [...] on filedocumented in this encounter Care Teams University Registrar Relationship Specialty Start Date End Date Chato Thomason MD [address] [place] [address] PCP - General Internal Medicine 10/27/18 Kelsey Minaya Community Health Worker 06/08/2407/07 Eliane Metzger Medical I D SalesDirector Of Quality 01/29/24 07/08/24 Mackenzie Roland Medical I D Sales 07/09/24 Angela Pozo Medical I D Sales 07/09/24 [facility] 06/12/23 documented as of this encounter
--- OUTSIDE RECORDS SUMMARY | 2025-03-09 14:20 | XMS_ITS | Encounter Summary ---
Author Organization [employer] Address [address] [facility] 7t [place] [address] Care Team Providers Care Casting Machine Adjuster Name Role Phone Chato Thomason MD Primary Care Provider [phone] Encounter Details Date Type Department Care Team ([facility] st Contact Info) Description 07/22/2024 Orders Only [facility] CHC MED & PEDS [address] [place], [place] [phone] Chato Thomason MD 505 [place], [place] [phone] Anxiety Social History Tobacco Use Types Packs/Day [...] the past 12 months, has t he [employer], [employer], oil or water [employer] threatened to shut off services in your [...] Telemedicine [facility] MED & PEDS [address] [place] [address] Linda Pelaez RN 505 [place] [address] 04/19/2025 2:00 PM EDT Office Visit [facility] MED & PEDS [address] [place] [address] Chato Thomason MD 505 [place] [address] 05/25/2025 3:15 PM EDT Office Visit [facility] ADULT DENTAL [address] [place] [address] Joe Nash DMD [address] [place] [address] documented as of this encounter Visit Diagnoses Diagnosis Anxiety Anxiety state, unspecified documented in this encounter Care Teams Casting Machine Adjuster Relationship Specialty Start Date End Date Chato Thomason MD 505 [place] [address] PCP - General Internal Medicine 10/27/18 Mackenzie Roland Dredge Mechanic 07/09/24 Angela Pozo Dredge Mechanic 07/09/24 [facility] 06/12/23 documented as of this encounter
--- OUTSIDE RECORDS SUMMARY | 2025-03-09 14:20 | XMS_ITS | Encounter Summary ---
Author Organization [employer] Address [address] [facility] 7 [place] [address] Care Team Providers Care Commanding Officer Homicide Squad Name Role Phone Chato Thomason MD Primary Care Provider +1 [phone] Reason for Visit * Reason Onset Date Comments PT1 02/15/2025 Encounter Details Date Type Department Care Team ([facility] st Contact Info) Description 02/15/2025 Telephone [facility] MEDICINE [address] [place] [address] Chato Thomason MD [address] [place] [address] PT1 Social History Tobacco Use Types Packs/Day [...] Y/N: Yes Provider name or facility name: [address] [place] [id number] - [facility] Escort needed: Y/N: Yes Do you have a wheelchair: Y/N: No If yes- Manual or electric: N/A Visits: (2x weekly) documented in this encounter Plan of Treatment Upcoming Encounters Date Type Department Care Team ([facility] st Contact Info) Description 2025 11:00 AM EDT Telemedicine [facility]ED[facility] [address] [place] [address] Linda Pelaez, RN 505 [place] [address] 04/19/2025 2:00 PM EDT Office Visit [facility] MED [facility] PEDS [address] [place] [address] Chato Thomason MD [address] [place] [address] 05/25/2025 3:15 PM EDT Office Visit [facility] CHC ADULT DENTAL [address] [place] [address] Joe Nash DMD 505 [place] [address] documented as of this encounter Visit Diagnoses Not on filedocumented in this encounter Additional Health Concerns Assessment Noted Time PHQ-9 Depression Total Score: 19 024 3:44 PM EDT documented as of this encounter Care Teams Commanding Officer Homicide Squad Relationship Specialty Start Date End Date Chato Thomason MD [address] [place] [address] PCP - General Internal Medicine 10/27/18 Mackenzie Roland Candle Wrapping Machine Operator 07/09/24 Angela Pozo Candle Wrapping Machine Operator 07/09/24 [facility] 06/12/23 documented as of this encounter
--- OUTSIDE RECORDS SUMMARY | 2025-03-09 14:20 | XMS_ITS | Encounter Summary ---
Author Organization [employer] Address [address] [facility] 7 [place] [address] Care Team Providers Care Yarn Dyer Name Role Phone Chato Thomason MD Primary Care Provider [phone] Reason for Visit * Reason Onset Date Comments Med Refill 02/15/2025 Encounter Details Date Type Department Care Team ([facility] st Contact Info) Description 02/15/2025 Telephone [facility] MEDICINE [address] [place] [address] Chato Thomason MD 505 [place] [address] Med Refill Social History Tobacco Use Types [...] 7.5 MG tablet To be sent to: [facility] documented in this encounter Plan of Treatment Upcoming Encounters Date Type Department Care Team (Late st Contact Info) Description 2025 11:00 AM EDT Telemedicine [facility] MED & PEDS [address] [place] [address] Linda Pelaez RN 505 [place] [address] 04/19/2025 2:00 PM EDT Office Visit [facility] MED & PEDS 505 [place] [address] Chato Thomason MD 505 [place] [address] 05/25/2025 3:15 PM EDT Office Visit [facility]C ADULT DENTAL [address] [place] [address] Joe Nash, KARIN 505 [place], [place] [phone] documented as of this encounter Visit Diagnoses Not on filedocumented in this encounter Additional Health Concerns Assessment Noted Time PHQ-9 Depression Total Score: 19 024 3:44 PM EDT documented as of this encounter Care Teams Yarn Dyer Relationship Specialty Start Date End Date Chato Thomason MD 505 [place] [address] PCP - General Internal Medicine 10/27/18 Mackenzie Roland Medical Imaging Technician 07/09/24 Angela Pozo Medical Imaging Technician 07/09/24 [facility] 06/12/23 documented as of this encounter
--- OUTSIDE RECORDS SUMMARY | 2025-03-09 14:20 | XMS_ITS | Encounter Summary ---
Author Organization [employer] Address [address] [facility] 7t [place] [address] Care Team Providers Care Supervisory Air Intercept Controller Name Role Phone Chato Thomason MD Primary Care Provider [phone] Kelsey Minaya Unavailable Encounter Details Date Type Department Care Team ([facility] st Contact Info) Description 03/30/2024 Orders Only [facility] CHC MED & PEDS [address] [place], [place] [phone] ProviderColleen MD Social History Tobacco Use Types [...] Description 2025 11:00 AM EDT Telemedicine [facility] MED & PEDS [address] [place] [address] Linda Pelaez, WALT 505 [place] [address] 04/19/2025 2:00 PM EDT Office Visit [facility] MED & PEDS [address] [place] [address] Chato Thomason MD 505 [place] [address] 05/25/2025 3:15 PM EDT Office Visit [facility] ADULT DENTAL [address] [place] [address] Joe Nash DMD [address] [place] [address] documented as of this encounter Procedures Procedure Name Priority Date/Time Associated Diagnosis Comments SURGICAL PATHOLOGY Routine 03/25/2024 8:43 AM EDT documented in this encounter Results * Surgical Pathology (03/25/2024 8:43 AM EDT) Historical Provider LAB PATHOLOGY ORDERABLES Final Result documented in this encounter Visit Diagnoses Not on filedocumented in this encounter Care Teams Supervisory Air Intercept Controller Relationship Specialty Start Date End Date Chato Thomason MD [address] [place] [address] PCP - General Internal Medicine 10/27/18 Kelsey Minaya Community Health Worker 06/08/2407/07 Eliane Metzger Welding Machine SetterLadle Patcher 01/29/24 07/08/24 Mackenzie Roland Welding Machine Setter 07/09/24 Angela Pozo Welding Machine Setter 07/09/24 [facility] 06/12/23 documented as of this encounter
--- OUTSIDE RECORDS SUMMARY | 2025-03-09 14:20 | XMS_ITS | Encounter Summary ---
Author Organization [employer] Address 75 [facility] 7 [place] [address] Care Team Providers Care Campaign Consultant Name Role Phone Chato Thomason MD Primary Care Provider +1 [phone] Reason for Visit * Reason Onset Date Comments Referral 08/05/2024 Encounter Details Date Type Department Care Team ([facility] Contact Info) Description 08/05/2024 Telephone [facility] CHC MED & PEDS [address] [place], [place] [phone] Chato Thomason MD 505 [place] [address] Referral Social History Tobacco Use Types Packs/Day Years Used Date Smoking Tobacco: Former Cigarettes 1 1 - 2022 Passive Smoke Exposure: Current [...] requesting to re new referral to Location: [facility] Address: [address] [place] [address] documented in this encounter Plan of Treatment Upcoming Encounters Date Type Department Care Team ([facility] st Contact Info) Description 2025 11:00 AM EDT Telemedicine [facility] MED & PEDS 505 [place] [address] Linda Pelaez, WALT 505 [place] [address] 04/19/2025 2:00 PM EDT Office Visit [facility] MED & PEDS 505 [place] [address] Chato Thomason MD 505 [place] [address] 05/25/2025 3:15 PM EDT Office Visit [facility] CHC ADULT DENTAL [address] [place], [place] [phone] Flex Nashhan, DMD [address] [place] [address] documented as of this encounter Visit Diagnoses Not on filedocumented in this encounter Additional Health Concerns Assessment Noted Time PHQ-9 Depression Total Score: 19 024 3:44 PM EDT documented as of this encounter Care Teams Campaign Consultant Relationship Specialty Start Date End Date Chato Thomason MD 505 [place] [address] PCP - General Internal Medicine 10/27/18 Mackenzie Roland Sock Mender 07/09/24 Angela Pozo Sock Mender 07/09/24 [facility] 06/12/23 documented as of this encounter
--- OUTSIDE RECORDS SUMMARY | 2025-03-09 14:20 | XMS_ITS | Encounter Summary ---
Author Organization [employer] Address [address] [facility] [address] 7t [place] [address] Care Team Providers Care Tray Service Worker Name Role Phone Chato Thomason MD Primary Care Provider [phone] Kelsey Minaya Unavailable Encounter Details Date Type Department Care Team ([facility] st Contact Info) Description 03/19/2024 Orders Only [facility] CHC MED & PEDS [address] [place], [place] [phone] ProviderColleen MD Social History Tobacco Use Types [...] [facility] 505 [place] [address] Linda Pelaez RN 505 [place] [address] 04/19/2025 2:00 PM EDT Office Visit [facility]EDS 505 [place] [address] Chato Thomason MD 505 [place] [address] 05/25/2025 3:15 PM EDT Office Visit [facility] ADULT DENTAL 505 [place] [address] Joe Nash DMD 505 [place] [address] documented as of this encounter Procedures Procedure Name Priority Date/Time Associated Diagnosis Comments SURGICAL PATHOLOGY Routine 03/15/2024 9:13 AM EDT documented in this encounter Results * Surgical Pathology (03/15/2024 9:13 AM EDT) Historical Provider LAB PATHOLOGY ORDERABLES Final Result documented in this encounter Visit Diagnoses Not on filedocumented in this encounter Care Teams Tray Service Worker Relationship Specialty Start Date End Date Chato Thomason MD 505 [place] [address] PCP - General Internal Medicine 10/27/18 Kelsey Minaya Community Health Worker 06/08/2407/07 Eliane Metzger Golf Course DesignerIndustrial Mechanic 01/29/24 07/08/24 Mackenzie Roland Golf Course Designer 07/09/24 Angela Pozo Golf Course Designer 07/09/24 [facility] 06/12/23 documented as of this encounter
--- OUTSIDE RECORDS SUMMARY | 2025-03-09 14:20 | XMS_ITS | Encounter Summary ---
Author Organization [employer] Address [address] [facility] 7t [place] [address] Care Team Providers Care Good Humor Vendor Name Role Phone Chato Thomason MD Primary Care Provider [phone] Encounter Details Date Type Department Care Team ([facility] Contact Info) Description 03/04/2025 Telephone [facility] CHC MED & PEDS [address] [place], [place] [phone] Chato Thomason MD 505 [place] [address] Social History Tobacco Use Types Packs/Day Years [...] encounter Miscellaneous Notes * Telephone Encounter - Wing Sanjay RN - 03/09/2025 8:53 AM EDT Tc to pt's mother regarding GI referral being sent to [facility]. Mother verbalized understanding and agreement with plan. * Telephone Encounter - Wing Sanjay RN - 03/07/2025 9:46 AM EDT Tc to pt's mother. Pt us currently taking the gabapentin and famotidine as prescribed. Mother is open to adding nortriptyline. 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 Mother stated she called about this request a few months ago. Also stated that pt will refuse to go to [facility] for anything due to previous bad experiences. Attaching liquified natural gas specialist to see if GI referral can be sent elsewhere. Mother verbalized understanding and agreement with plan. * Telephone Encounter - Brittany Mendez RN - 03/04/2025 9:30 AM EDT TC to patient mother -Angelica. She stated patient is having bad acid reflux. She bought OTC Pepcid, but she stated that was not working for him. She is requesting a different medication for GERD. She states the gabapentin 250mg/5ml is not working fr the patient. She is requesting a higher dose or a different medication. For the OT referral, the diagnosis should be for lymphedema and not pain. She states she [facility], and that is what they need to referral to say for them to take him. Routing to provider for review. documented in this encounter Plan of Treatment Upcoming Encounters Date Type Department Care Team (Late st Contact Info) Description 2025 11:00 AM EDT Telemedicine [facility] MED & PEDS [address] [place] [address] Linda Pelaez RN 505 [place] [address] 04/19/2025 2:00 PM EDT Office Visit [facility] MED & PEDS 505 [place] [address] Chato Thomason MD 505 [place] [address] 05/25/2025 3:15 PM EDT Office Visit [facility] ADULT DENTAL 505 [place] [address] Joe Nash, KARIN 505 [place] [address] documented as of this encounter Visit Diagnoses Not on filedocumented in this encounter Additional Health Concerns Assessment Noted Time PHQ-9 Depression Total Score: 19 024 3:44 PM EDT documented as of this encounter Care Teams Good Humor Vendor Relationship Specialty Start Date End Date Chato Thomason MD 505 [place] [address] PCP - General Internal Medicine 10/27/18 Mackenzie Roland Water Softener Installer 07/09/24 Angela Pozo Water Softener Installer 07/09/24 [facility] 06/12/23 documented as of this encounter
--- OUTSIDE RECORDS SUMMARY | 2025-03-09 14:20 | XMS_ITS | Encounter Summary ---
Author Organization [employer] Address [address] [place] [address], [place] [address] Care Team Providers Care Beverage Sales Consultant Name Role Phone Chato Thomason MD Primary Care Provider [phone] Kelsey Minaya Unavailable Reason for Referral * Consultation (Routine) - Denied Specialty Diagnoses / Procedures Referred By Contac t Referred To Contact Diagnoses Squamous cell carcinoma of larynx (CMS/HCC) Chato Thomason MD [address] [place] [address] Phone: tel: fax: [address] [phone] Phone: tel: fax: Referral ID Status Reason Start Date Expiration Date V isits Requested Visits Authorized [id number] Denied Specialty Services Required 05/04/2024 05/04/2025 1 0 Encounter Details Date Type Department Care Team (Late st Contact Info) Description 05/04/2024 Orders Only [facility] CHC MED & PEDS [address] [place], [place] [phone] Chato Thomason MD [address] [place] [phone] Squamous cell carcinoma of larynx (CMS/HCC) (Primary [...] [facility] MED & PEDS 505 [place] [address] Linda Pelaez RN 505 [place] [address] 04/19/2025 2:00 PM EDT Office Visit [facility] MED & PEDS [address] [place] [address] Chato Thomason MD 505 [place] [address] 05/25/2025 3:15 PM EDT Office Visit [facility] ADULT DENTAL 505 [place] [address] Joe Nash DMD 505 [place] [address] Scheduled Referrals Name Type Priority Associated Diagnoses Order Schedule Referral to Care Management Outpatient Referral Routine Squamous cell carcinoma of larynx (CMS/HCC) Expected: 05/04/2024 (Approximate), Expires: 05/04/2025 documented as of this encounter Visit Diagnoses Diagnosis 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, unspecified site Other insomnia documented in this encounter Care Teams Beverage Sales Consultant Relationship Specialty Start Date End Date Chato Thomason MD 505 [place] [address] PCP - General Internal Medicine 10/27/18 Kelsey Minaya Community Health Worker 06/08/2407/07 Eliane Metzger Senior Security AnalystGreen Chain Off Bearer 01/29/24 07/08/24 Mackenzie Roland Senior Security Analyst 07/09/24 Angela Pozo Senior Security Analyst 07/09/24 [facility] 06/12/23 documented as of this encounter
--- OUTSIDE RECORDS SUMMARY | 2025-03-09 14:20 | XMS_ITS | Encounter Summary ---
Author Organization [employer] Address 75 [facility] 7 [place] [address] Care Team Providers Care Asbestos Handler Name Role Phone Chato Thomason MD Primary Care Provider [phone] Kelsey Minaya Unavailable Reason for Visit * Reason Onset Date Comments Paperwork/Forms 02/02/2024 Encounter Details Date Type Department Care Team ([facility] st Contact Info) Description 02/02/2024 Telephone [facility] MEDICINE [address] [place] [address] Chato Thomason MD 505 [place], [place] [phone] Paperwork/Forms Social History Tobacco Use Types Packs/Day [...] - 02/02/2024 10:48 AM EDT Tc [place] [facility] requesting status of the Transfer Summary that was faxed over on 12/01 the order number is [id number] needs to be completed and signed by the provider as soon as possible and to be faxed to [phone] documented in this encounter Plan of Treatment Upcoming Encounters Date Type Department Care Team (Late st Contact Info) Description 2025 11:00 AM EDT Telemedicine [facility] MED & PEDS 505 [place] [address] Linda Pelaez RN 505 [place] [address] 04/19/2025 2:00 PM EDT Office Visit [facility] MED & PEDS 505 [place] [address] Chato Thomason MD 505 [place] [address] 05/25/2025 3:15 PM EDT Office Visit [facility] ADULT DENTAL 505 [place] [address] Joe Nash DMD 505 [place] [address] documented as of this encounter Visit Diagnoses Not on filedocumented in this encounter Care Teams Asbestos Handler Relationship Specialty Start Date End Date Chato Thomason MD [address] [place] [address] PCP - General Internal Medicine 10/27/18 Kelsey Minaya Community Health Worker 06/08/2407/07 Eliane Metzger Salon CoordinatorGeneration Mechanic Helper 01/29/24 07/08/24 Mackenzie Roland Salon Coordinator 07/09/24 Angela Pozo Salon Coordinator 07/09/24 [facility] 06/12/23 documented as of this encounter
--- OUTSIDE RECORDS SUMMARY | 2025-03-09 14:20 | XMS_ITS | Encounter Summary ---
Author Organization [employer] Address 75 [facility] 7 [place] [address] Care Team Providers Care Potter Or Ceramic Artist Name Role Phone Chato Thomason MD Primary Care Provider [phone]- [phone] Reason for Visit * Reason Onset Date Comments Med Refill 09/13/2024 Encounter Details Date Type Department Care Team ([facility] st Contact Info) Description 09/13/2024 Telephone [facility] MEDICINE [address] [place] [address] Chato Thomason MD 505 [place] [address] Med Refill Social History Tobacco Use Types [...] immediate release tablet To be sent to: [id number] AT [facility] documented in this encounter Plan of Treatment Upcoming Encounters Date Type Department Care Team ([facility] Contact Info) Description 2025 11:00 AM EDT Telemedicine [facility] MED & PEDS 505 [place] [address] Linda Pelaez RN 505 [place] [address] 04/19/2025 2:00 PM EDT Office Visit [facility] MED & PEDS 505 [place] [address] Chato Thomason MD 505 [place] [address] 05/25/2025 3:15 PM EDT Office Visit [facility] CHC ADULT DENTAL [address] [place], [place] [phone] Joe Nash DMD [address] [place], [place] [phone] documented as of this encounter Visit Diagnoses Not on filedocumented in this encounter Additional Health Concerns Assessment Noted Time PHQ-9 Depression Total Score: 19 024 3:44 PM EDT documented as of this encounter Care Teams Potter Or Ceramic Artist Relationship Specialty Start Date End Date Chato Thomason MD 505 [place], [place] [address] PCP - General Internal Medicine 10/27/18 Mackenzie Roland Car Conditioner 07/09/24 Angela Pozo Car Conditioner 07/09/24 [facility] 06/12/23 documented as of this encounter
--- OUTSIDE RECORDS SUMMARY | 2025-03-09 14:20 | XMS_ITS ---
Author Organization [employer] Address [address] [place] [address] 7 [place] [address] Care Team Providers Care Hog Sawyer Name Role Phone Chato Thomason MD Primary Care Provider +[phone] CHW Complex Status:Outreach In Progress (Enrolling) Start date:01/12/2025 Enrollment reason:ADT Feed Overview ADT- Pt admitted to [facility] on 01/11. Case Team Name Relationship Phone Josephine Block(Responsible Staff) [phone] Continued Care and Services Coordination
--- OUTSIDE RECORDS SUMMARY | 2025-03-09 14:20 | XMS_ITS | Encounter Summary ---
Author Organization [employer] Address 75 [facility] 7t [place] [address] Care Team Providers Care Other Spatial Scientist Name Role Phone Chato Thomason MD Primary Care Provider [phone] Encounter Details Date Type Department Care Team ([facility] st Contact Info) Description 10/04/2024 Orders Only [facility] CHC MED & PEDS [address] [place] [address] ProviderColleen MD Social History Tobacco Use Types [...] [facility] 505 [place] [address] Linda Pelaez RN 505 [place] [address] 04/19/2025 2:00 PM EDT Office Visit [facility] MED & PEDS 505 [place] [address] Chato Thomason MD 505 [place] [address] 05/25/2025 3:15 PM EDT Office Visit [facility] ADULT DENTAL 505 [place] [address] Joe Nash DMD 505 [place] [address] documented as of this encounter Procedures Procedure [...] documented as of this encounter Care Teams Other Spatial Scientist Relationship Specialty Start Date End Date Chato Thomason MD [address] [place] [address] PCP - General Internal Medicine 10/27/18 Mackenzie Roland Principal Process Engineer 07/09/24 Angela Pozo Principal Process Engineer 07/09/24 [facility] 06/12/23 documented as of this encounter
--- OUTSIDE RECORDS SUMMARY | 2025-03-09 14:20 | XMS_ITS ---
Author Organization [employer] Address [address] [place] [address] 7t [place] [address] Care Team Providers Care Baggage Porter Name Role Phone Chato Thomason MD Primary Care Provider +1- [phone] CM Complex Status:Outreach In Progress (Enrolling) Start date:01/12/2025 Enrollment reason:ADT Feed Overview ADT- Pt admitted to [facility] on 01/11. Case Team Name Relationship Phone Alisha Sheehan RN(Responsible Staff) Registered Nurse [phone] Continued Care and Services Coordination
--- OUTSIDE RECORDS SUMMARY | 2025-03-09 14:20 | XMS_ITS | Encounter Summary ---
Author Organization [employer] Address [address] [place] [address] [place], [place] [address] Care Team Providers Care First Line Supervisor Name Role Phone Chato Thomason MD Primary Care Provider [phone]- [phone] Reason for Referral * Consultation (Routine) - Authorized Specialty Diagnoses / Procedures Referred By Maryana singh Referred To Contact Gastroenterology Diagnoses Epigastric pain Chato Thomason MD [address] [place] [address] Phone: tel: fax: Yomi Hernandes MD [address] [place] [address] Phone: tel: fax: Referral ID Status Reason Start Date Expiration Date Visits Requested Visits Authorized [id number] Authorized Specialty Services Required 03/04/2025 03/04/2026 1 1 * Consultation (Routine) - Closed Specialty Diagnoses / Procedures Referred By Maryana singh Referred To Contact Occupational Therapy Diagnoses Lymphatic edema Chato Thomason MD [address] [place] [address] Phone: tel: fax: Referral ID Status Reason Start Date Expiration Date V isits Requested Visits Authorized [id number] Closed Specialty Services Required 03/04/2025 03/04/2026 1 1 Encounter Details Date Type Department Care Team (Late st Contact Info) Description 03/04/2025 Orders Only [facility] CHC MED & PEDS [address] [place] [address] Chato Thomason MD [address] [place] [address] Lymphatic edema (Primary Dx); Epigastric pain Social History Tobacco Use Types Packs/Day Years Used Date Smoking Tobacco: Former Cigarettes 25 2022 Passive Smoke Exposure: Current Smokeless Tobacco: [...] the past 12 months, has t he [email or web address], gas, oil or water [employer] threatened to shut off services in your [...] [facility] MED & PEDS [address] [place] [address] Linda Pelaez RN 505 [place] [address] 04/19/2025 2:00 PM EDT Office Visit [facility] MED & PEDS [address] [place] [address] Chato Thomason MD 505 [place] [address] 05/25/2025 3:15 PM EDT Office Visit [facility] ADULT DENTAL [address] [place] [address] Joe Nash DMD [address] [place] [address] Scheduled Referrals Name Type Priority Associated Diagnoses Order Schedule Referral to Occupational Therapy Outpatient Referral Routine Lymphatic edema Expected: 03/04/2025 (Approximate), Expires: 03/04/2026 Referral to Gastroenterology Outpatient Referral Routine Epigastric pain Expected: 03/04/2025 (Approximate), Expires: 03/04/2026 documented as of this encounter Visit Diagnoses Diagnosis Lymphatic edema- Primary Other noninfectious lymphedema Epigastric pain Abdominal pain, epigastric documented in this encounter Additional Health Concerns Assessment Noted Time PHQ-9 Depression Total Score: 19 024 3:44 PM EDT documented as of this encounter Care Teams First Line Supervisor Relationship Specialty Start Date End Date Chato Thomason MD [address] [place] [address] PCP - General Internal Medicine 10/27/18 Mackenzie Roland Towboat Pilot 07/09/24 Angela Pozo Towboat Pilot 07/09/24 [facility] 06/12/23 documented as of this encounter
--- OUTSIDE RECORDS SUMMARY | 2025-03-09 14:20 | XMS_ITS | Encounter Summary ---
Author Organization [employer] Address 75 [facility] 7 [place] [address] Care Team Providers Care Grants Officer Name Role Phone Chato Thomason MD Primary Care Provider +1 [phone] Kelsey Minaya Unavailable Reason for Visit * Reason Onset Date Comments PT1 06/07/2024 Encounter Details Date Type Department Care Team ([facility] Contact Info) Description 06/07/2024 Telephone [facility] CHC MED & PEDS [address] [place], [place] [phone] Chato Thomason MD 505 [place] [address] PT1 Social History Tobacco Use Types Packs/Day [...] Y/N: Yes Provider name or facility name: [facility] Facility Address: [address] [place] [address] Escort needed: Y/N: Yes Do you have a wheelchair: Y/N: No If yes- Manual or electric: n/a Visits: 1 x week documented in this encounter Plan of Treatment Upcoming Encounters Date Type Department Care Team (Late st Contact Info) Description 2025 11:00 AM EDT Telemedicine [facility] MED & PEDS [address] [place] [address] Linda Pelaez RN 505 [place] [address] 04/19/2025 2:00 PM EDT Office Visit [facility] MED & PEDS [address] [place] [address] Chato Thomason MD 505 [place] [address] 05/25/2025 3:15 PM EDT Office Visit [facility] ADULT DENTAL [address] [place] [address] Joe Nash DMD [address] [place] [address] documented as of this encounter Visit Diagnoses Not on filedocumented in this encounter Care Teams Grants Officer Relationship Specialty Start Date End Date Chato Thomason MD [address] [place] [address] PCP - General Internal Medicine 10/27/18 Kelsey Minaya Community Health Worker 06/08/2407/07 Eliane Metzger Obstetrics Gynecology PhysicianProject Coordinator Rn 01/29/24 07/08/24 Mackenzie Roland Obstetrics Gynecology Physician 07/09/24 Angela Pozo Obstetrics Gynecology Physician 07/09/24 [facility] 06/12/23 documented as of this encounter
--- OUTSIDE RECORDS SUMMARY | 2025-03-09 14:20 | XMS_ITS | Encounter Summary ---
Author Organization [employer] Address 75 [facility] 7t [place] [address] Care Team Providers Care Welder Fitter Helper Name Role Phone Chato Thomason MD Primary Care Provider [phone] Kelsey Minaya Unavailable Encounter Details Date Type Department Care Team ([facility] st Contact Info) Description 03/01/2024 Orders Only [facility] CHC MED & PEDS [address] [place], [place] [phone] ProviderColleen MD Social History Tobacco Use Types [...] Description 2025 11:00 AM EDT Telemedicine [facility] MED & PEDS 505 [place] [address] Linda Pelaez, WALT 505 [place] [address] 04/19/2025 2:00 PM EDT Office Visit [facility] MED & PEDS 505 [place] [address] Chato Thomason MD 505 [place] [address] 05/25/2025 3:15 PM EDT Office Visit [facility] ADULT DENTAL 505 [place] [address] Joe Nash DMD [address] [place] [address] documented as of this encounter Procedures Procedure [...] on filedocumented in this encounter Care Teams Welder Fitter Helper Relationship Specialty Start Date End Date Chato Thomason MD [address] [place] [address] PCP - General Internal Medicine 10/27/18 Kelsey Minaya Community Health Worker 06/08/2407/07 Eliane Metzger Student Support Services DirectorPolicy And Planning Manager 01/29/24 07/08/24 Mackenzie Roland Student Support Services Director 07/09/24 Angela Pozo Student Support Services Director 07/09/24 [facility] 06/12/23 documented as of this encounter
--- OUTSIDE RECORDS SUMMARY | 2025-03-09 14:20 | XMS_ITS | Encounter Summary ---
Author Organization [employer] Address [address] [place] [address] [address], [place] [address] Care Team Providers Care Fabric And Accessories Estimator Name Role Phone Chato Thomason MD Primary Care Provider [phone]- [phone] Kelsey Minaya Unavailable Encounter Details Date Type Department Care Team (Late Contact Info) Description 12/04/2022 Abstract [facility] [address] [place], [place] [phone] Chato Thomason MD 505 [place] [address] Social History Tobacco Use Types Packs/Day Years [...] Upcoming Encounters Date Type Department Care Team ([facility] Contact Info) Description 2025 11:00 AM EDT Telemedicine [facility] [address] [place], [place] [phone] Linda Pelaez, WALT [address] [place], [place] [phone] 04/19/2025 2:00 PM EDT Office Visit [facility] [address] [place] [address] Chato Thomason MD [address] [place], [place] [phone] 05/25/2025 3:15 PM EDT Office Visit [facility] [address] [place], [place] [phone] Joe Nash DMD [address] [place], [place] [phone] documented as of this encounter Visit Diagnoses Not on filedocumented in this encounter Care Teams Fabric And Accessories Estimator Relationship Specialty Start Date End Date Chato Thomason MD [address] [place], [place] [phone] PCP - General Internal Medicine 10/27/18 Kelsey Minaya Community Health Worker 06/08/2407/07 Eliane Metzger State ArchivistDigital Publishing Specialist 01/29/24 07/08/24 Mackenzie Roland State Archivist 07/09/24 Angela Pozo State Archivist 07/09/24 [facility] 06/12/23 documented as of this encounter
--- OUTSIDE RECORDS SUMMARY | 2025-03-09 14:20 | XMS_ITS | Encounter Summary ---
Author Organization [employer] Address [address] [facility] 7 [place] [address] Care Team Providers Care J2Ee Application Developer Name Role Phone Chato Thomason MD Primary Care Provider [phone] Reason for Visit * Reason Onset Date Comments Call Back Request 03/01/2025 Encounter Details Date Type Department Care Team ([facility] st Contact Info) Description 03/01/2025 Telephone [facility] [address] [place] [address] Chato Thomason MD [address] [place] [address] Call Back Request Social History Tobacco Use [...] Encounter - Brittany Mendez RN - 03/04/2025 10:25 AM EDT Please see encounter notes from this business writer from 03/04/25. * Telephone Encounter - Lupe Lopez - 03/03/2025 8:23 AM EDT Tc from pt mom stating needs a occupational therapy referral not a Physical therapy. * Telephone Encounter - Lupe Lopez - 03/01/2025 8:03 AM EDT Tc from pt mom requesting a call back from nurses regarding physical therapy referral. Diagnosis needs to be changed. [phone] documented in this encounter Plan of Treatment Upcoming Encounters Date Type Department Care Team (Late st Contact Info) Description 2025 11:00 AM EDT Telemedicine [facility] MED & PEDS [address] [place] [address] Linda Pelaez RN [address] [place] [address] 04/19/2025 2:00 PM EDT Office Visit [facility] PED[facility] [address] [place] [address] Chato Thomason MD [address] [place] [address] 05/25/2025 3:15 PM EDT Office Visit [facility] ADULT DENTAL [address] [place] [address] Joe Nash DMD [address] [place] [address] documented as of this encounter Visit Diagnoses Not on filedocumented in this encounter Additional Health Concerns Assessment Noted Time PHQ-9 Depression Total Score: 19 024 3:44 PM EDT documented as of this encounter Care Teams J2Ee Application Developer Relationship Specialty Start Date End Date Chato Thomason MD [address] [place] [address] PCP - General Internal Medicine 10/27/18 Mackenzie Roland Scrap Drop Operator 07/09/24 Angela Pozo Scrap Drop Operator 07/09/24 [facility] 06/12/23 documented as of this encounter
--- OUTSIDE RECORDS SUMMARY | 2025-03-09 14:20 | XMS_ITS | Encounter Summary ---
Author Organization [employer] Address [address] [place] [address] [address] Care Team Providers Care Seafood And Service Meat Manager Name Role Phone Chato Thomason MD Primary Care Provider [phone]- [phone] Reason for Referral * Consultation (Routine) - Closed Specialty Diagnoses / Procedures Referred By Maryana singh Referred To Contact Ophthalmology Diagnoses Primary hypertension Chato Thomason MD [address] [place] [address] Phone: tel: fax: [facility] [address] [place] [address] Phone: tel:[phone] fax: Referral ID Status Reason Start Date Expiration Date V isits Requested Visits Authorized [id number] Closed Specialty Services Required 10/01/2024 10/01/2025 1 1 * Consultation (Urgent) - Closed Specialty Diagnoses / Procedures Referred By Maryana singh Referred To Contact Pharmacy Diagnoses Spongiotic dermatitis Chronic bronchitis, unspecified chronic bronchitis type (CMS/HCC) Hypercholesterolemia Primary hypertension Chato Thomason MD [address] [place] [address] Phone: tel: fax: Referral ID Status Reason Start Date Expiration Date V isits Requested Visits Authorized [id number] Closed Continuity of Care 10/01/2024 10/01/2025 6 6 Encounter Details Date Type Department Care Team (Late st Contact Info) Description 10/01/2024 Orders Only [facility] [address] [place] [address] Chato Thomason MD [address] [place] [address] Spongiotic dermatitis (Primary Dx); Chronic bronchitis, unspecified [...] Upcoming Encounters Date Type Department Care Team ([facility] Contact Info) Description 2025 11:00 AM EDT Telemedicine [facility] [address] [place] [address] Linda Pelaez RN [address] [place] [address] 04/19/2025 2:00 PM EDT Office Visit [facility] [address] [place] [address] Chato Thomason MD [address] [place] [address] 05/25/2025 3:15 PM EDT Office Visit [facility] ADULT DENTAL [address] [place] [address] Joe Nash DMD [address] [place] [address] Scheduled Referrals Name Type Priority Associated Diagnoses [...] documented as of this encounter Care Teams Seafood And Service Meat Manager Relationship Specialty Start Date End Date Chato Thomason MD [address] [place] [address] PCP - General Internal Medicine 10/27/18 Mackenzie Roland Network Solutions Architect 07/09/24 Angela Pozo Network Solutions Architect 07/09/24 [facility] 06/12/23 documented as of this encounter
--- OUTSIDE RECORDS SUMMARY | 2025-03-09 14:20 | XMS_ITS | Encounter Summary ---
Author Organization [employer] Address [address] [facility] 7 [place] [address] Care Team Providers Care Group Leader Semiconductor Testing Name Role Phone Chato Thomason MD Primary Care Provider [phone]- [phone] Reason for Visit * Reason Comments Med Refill Encounter Details Date Type Department Care Team ([facility] st Contact Info) Description 08/31/2024 Refill [facility] PEDS [address] [place], [place] [phone] Chato Thomason MD [address] [place] [address] Squamous cell carcinoma of larynx (CMS/HCC) (Primary [...] [facility] [address] [place] [address] Linda Pelaez RN [address] [place] [address] 04/19/2025 2:00 PM EDT Office Visit [facility] [address] [place] [address] Chato Thomason MD [address] [place] [address] 05/25/2025 3:15 PM EDT Office Visit [facility] AD[facility] [address] [place] [address] Joe Nash DMD [address] [place] [address] documented as of this encounter Visit Diagnoses Diagnosis 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, unspecified site Other insomnia Anxiety Anxiety state, unspecified History of laryngectomy Other postprocedural status documented in this encounter Additional Health Concerns Assessment Noted Time PHQ-9 Depression Total Score: 19 024 3:44 PM EDT documented as of this encounter Care Teams Group Leader Semiconductor Testing Relationship Specialty Start Date End Date Chato Thomason MD [address] [place] [address] PCP - General Internal Medicine 10/27/18 Mackenzie Roland Sole Layer Hand 07/09/24 Angela Pozo Sole Layer Hand 07/09/24 [facility] 06/12/23 documented as of this encounter
--- OUTSIDE RECORDS SUMMARY | 2025-03-09 14:20 | XMS_ITS | Encounter Summary ---
Author Organization [employer] Address [address] [facility] 7 [place] [address] Care Team Providers Care Chip Drier Name Role Phone Chato Thomason MD Primary Care Provider [phone]- [phone] Kelsey Minaya Unavailable Reason for Visit * Reason Onset Date Comments Referral 03/27/2023 Encounter Details Date Type Department Care Team ([facility] st Contact Info) Description 03/27/2023 Telephone [facility] [address] [place] [address] Chato Thomason MD [address] [place] [address] Referral Social History Tobacco Use Types Packs/Day [...] - 03/27/2023 2:43 PM EDT Tc from [facility] requesting a referral. Date: 03/31/2023 Time: 10:15 AM Location: [address] [place] [address] Specialty: [facility] Hematology Oncology NPI Facility: [id number] Department: [id number] DX: Squamous cell Carcinoma of Epiglottis Phone #: [phone] Fax #: [phone] documented in this encounter Plan of Treatment Upcoming Encounters Date Type Department Care Team (Late st Contact Info) Description 2025 11:00 AM EDT Telemedicine [facility] [address] [place] [address] Linda Pelaez RN [address] [place] [address] 04/19/2025 2:00 PM EDT Office Visit [facility] [address] [place] [address] Chato Thomason MD [address] [place] [address] 05/25/2025 3:15 PM EDT Office Visit [facility] [address] [place] [address] Joe Nash DMD [address] [place] [address] documented as of this encounter Visit Diagnoses Not on filedocumented in this encounter Care Teams Chip Drier Relationship Specialty Start Date End Date Chato Thomason MD [address] [place] [address] PCP - General Internal Medicine 10/27/18 Kelsey Minaya Community Health Worker 06/08/2407/07 Eliane Metzger Installation TechnicianLead Project Engineer 01/29/24 07/08/24 Mackenzie Roland Installation Technician 07/09/24 Angela Pozo Installation Technician 07/09/24 [facility] 06/12/23 documented as of this encounter
--- OUTSIDE RECORDS SUMMARY | 2025-03-09 14:20 | XMS_ITS | Encounter Summary ---
Author Organization [employer] Address [address] [facility] 7t [place] [address] Care Team Providers Care Drum Tender Name Role Phone Chato Thomason MD Primary Care Provider [phone] Encounter Details Date Type Department Care Team ([facility] st Contact Info) Description 08/05/2024 Orders Only [facility] PEDS [address] [place] [address] ProviderColleen MD Social History Tobacco Use Types [...] 11:00 AM EDT Telemedicine [facility] MED & PEDS [address] [place] [address] Linda Pelaez RN [address] [place] [address] 04/19/2025 2:00 PM EDT Office Visit [facility] & PEDS [address] [place] [address] Chato Thomason MD [address] [place] [address] 05/25/2025 3:15 PM EDT Office Visit [facility] ADULT DENTAL [address] [place] [address] Joe Nash DMD [address] [place] [address] documented as of this encounter Procedures Procedure [...] documented as of this encounter Care Teams Drum Tender Relationship Specialty Start Date End Date Chato Thomason MD [address] [place] [address] PCP - General Internal Medicine 10/27/18 Mackenzie Roland Framing Mill Operator 07/09/24 Angela Pozo Framing Mill Operator 07/09/24 [facility] 06/12/23 documented as of this encounter
--- OUTSIDE RECORDS SUMMARY | 2025-03-09 14:20 | XMS_ITS | Encounter Summary ---
Author Organization [employer] Address [address] [facility] 7 [place] [address] Care Team Providers Care Coal Mine Inspector Name Role Phone Chato Thomason MD Primary Care Provider +1- [phone] Kelsey Minaya Unavailable Reason for Visit * Reason Onset Date Comments PT-1 05/14/2024 Encounter Details Date Type Department Care Team ([facility] st Contact Info) Description 05/14/2024 Telephone [facility] MEDICINE [address] [place] [address] Chato Thomason MD [address] [place], [place] [phone] PT-1 Social History Tobacco Use Types Packs/Day [...] Y/N: Yes Provider name or facility name: [facility] Facility Address: [address] [place] [address] Escort needed: Y/N: Yes Do you have a wheelchair: Y/N: No If yes- Manual or electric: no Visits: 6 documented in this encounter Plan of Treatment Upcoming Encounters Date Type Department Care Team (Late st Contact Info) Description 2025 11:00 AM EDT Telemedicine [facility] MED & PEDS [address] [place] [address] Linda Pelaez RN [address] [place] [address] 04/19/2025 2:00 PM EDT Office Visit [facility] MED & PEDS [address] [place] [address] Chato Thomason MD [address] [place] [address] 05/25/2025 3:15 PM EDT Office Visit [facility] ADULT DENTAL [address] [place] [address] Joe Nash DMD [address] [place] [address] documented as of this encounter Visit Diagnoses Not on filedocumented in this encounter Care Teams Coal Mine Inspector Relationship Specialty Start Date End Date Chato Thomason MD [address] [place] [address] PCP - General Internal Medicine 10/27/18 Kelsey Minaya Community Health Worker 06/08/2407/07 Eliane Metzger Environmental Services TechnicianSenior Storage Engineer 01/29/24 07/08/24 Mackenzie Roland Environmental Services Technician 07/09/24 Angela Pozo Environmental Services Technician 07/09/24 [facility] 06/12/23 documented as of this encounter
--- OUTSIDE RECORDS SUMMARY | 2025-03-09 14:20 | XMS_ITS | Encounter Summary ---
Author Organization [employer] Address [address] [facility] 7t [place] [address] Care Team Providers Care Paving Supervisor Name Role Phone Chato Thomason MD Primary Care Provider [phone] Kelsey Minaya Unavailable Encounter Details Date Type Department Care Team (Late st Contact Info) Description 02/26/2024 Orders Only [facility] [address] [place] [address] ProviderColleen MD Social History Tobacco Use Types [...] [facility] MED & PEDS [address] [place] [address] Linda Pelaez RN 505 [place] [address] 04/19/2025 2:00 PM EDT Office Visit [facility] MED & PEDS [address] [place] [address] Chato Thomason MD [address] [place] [address] 05/25/2025 3:15 PM EDT Office Visit [facility] ADULT DENTAL [address] [place] [address] Joe Nash DMD [address] [place], [place] [phone] documented as of this encounter Procedures Procedure Name Priority Date/Time Associated Diagnosis Comments PATHOLOGY REPORT (HISTOPATHOLOGY) Routine 02/24/2024 3:36 PM EDT documented in this encounter Results * Pathology Report (02/24/2024 3:36 PM EDT) Tissue Historical Provider LAB PATHOLOGY ORDERABLES Final Result documented in this encounter Visit Diagnoses Not on filedocumented in this encounter Care Teams Paving Supervisor Relationship Specialty Start Date End Date Chato Thomason MD [address] [place] [address] PCP - General Internal Medicine 10/27/18 Kelsey Minaya Community Health Worker 06/08/2407/07 Eliane Metzger Gis SpecialistSupervisor Border Department 01/29/24 07/08/24 Mackenzie Roland Gis Specialist 07/09/24 Angela Pozo Gis Specialist 07/09/24 [facility] 06/12/23 documented as of this encounter
--- OUTSIDE RECORDS SUMMARY | 2025-03-09 14:21 | XMS_ITS | Encounter Summary ---
Author Organization [employer] Address 75 [facility] 7 [place] [address] Care Team Providers Care Geoscience Technician Name Role Phone Chato Thomason MD Primary Care Provider [phone] Reason for Visit * Reason Onset Date Comments pt1 01/26/2025 Encounter Details Date Type Department Care Team ([facility] st Contact Info) Description 01/26/2025 Telephone [facility] MEDICINE [address] [place] [address] Cahto Thomason MD 505 [place] [address] pt1 Social History Tobacco Use Types Packs/Day [...] Y/N: Yes Provider name or facility name: [address] [place] [address] Escort needed: Y/N: Yes Do you have a wheelchair: Y/N: No If yes- Manual or electric: n/a Visits: (2x monthly) documented in this encounter Plan of Treatment Upcoming Encounters Date Type Department Care Team ([facility] st Contact Info) Description 2025 11:00 AM EDT Telemedicine [facility] MED & PEDS 505 [place] [address] Linda Pelaez RN 505 [place] [address] 04/19/2025 2:00 PM EDT Office Visit [facility] MED & PEDS 505 [place] [address] Chato Thomason MD 505 [place] [address] 05/25/2025 3:15 PM EDT Office Visit [facility] CHC ADULT DENTAL [address] [place], [place] [phone] Saad Joe, KARIN 505 [place] [address] documented as of this encounter Visit Diagnoses Not on filedocumented in this encounter Additional Health Concerns Assessment Noted Time PHQ-9 Depression Total Score: 19 024 3:44 PM EDT documented as of this encounter Care Teams Geoscience Technician Relationship Specialty Start Date End Date Chato Thomason MD [address] [place] [address] PCP - General Internal Medicine 10/27/18 Mackenzie Roland Soaking Room Operator 07/09/24 Angela Pozo Soaking Room Operator 07/09/24 [facility] 06/12/23 documented as of this encounter
--- OUTSIDE RECORDS SUMMARY | 2025-03-09 14:21 | XMS_ITS | Encounter Summary ---
Author Organization [employer] Address [address] [place] [address] [place] [address] Care Team Providers Care Food Service Employee Name Role Phone Chato Thomason MD Primary Care Provider +1 [phone] Kelsey Minaya Unavailable Reason for Visit * Reason Onset Date Comments VNA Orders 07/28/2023 Encounter Details Date Type Department Care Team ([facility] st Contact Info) Description 07/28/2023 Telephone [facility] CHC MED & PEDS 505 [place], [place] [phone] Chato Thomason MD 505 [place] [address] VNA Orders Social History Tobacco Use Types [...] Miscellaneous Notes * Telephone Encounter - Bing Ashfordrero - 07/28/2023 3:40 PM EDT Tc from [facility] requesting two VNA orders for: Face to Face Encounter Dated on 06/11/2023 (Please fax over office notes) Physician order Dated on 06/11/2023 [place] states that orders have a 30 day time frame. Please fax over at [phone] Please If any questions please contact Anabela at [phone] documented in this encounter Plan of Treatment Upcoming Encounters Date Type Department Care Team (Late st Contact Info) Description 2025 11:00 AM EDT Telemedicine [facility] MED & PEDS 505 [place] [address] Linda Pelaez, WALT 505 [place] [address] 04/19/2025 2:00 PM EDT Office Visit [facility] MED & PEDS 505 [place] [address] Chato Thomason MD 505 [place] [address] 05/25/2025 3:15 PM EDT Office Visit [facility] ADULT DENTAL 505 [place] [address] Joe Nash DMD 505 [place] [address] documented as of this encounter Visit Diagnoses Not on filedocumented in this encounter Care Teams Food Service Employee Relationship Specialty Start Date End Date Chato Thomason MD 505 [place] [address] PCP - General Internal Medicine 10/27/18 Kelsey Minaya Community Health Worker 06/08/2407/07 Eliane Metzger Entry ManagerPlasma Specialist 01/29/24 07/08/24 Mackenzie Roland Entry Manager 07/09/24 Angela Pozo Entry Manager 07/09/24 [facility] 06/12/23 documented as of this encounter
--- OUTSIDE RECORDS SUMMARY | 2025-03-09 14:21 | XMS_ITS | Encounter Summary ---
Author Organization [employer] Address 75 [facility] 7 [place] [address] Care Team Providers Care Fios Line Installer Name Role Phone Chato Thomason MD Primary Care Provider [phone] Reason for Visit * Reason Onset Date Comments Med Refill 02/15/2025 Encounter Details Date Type Department Care Team ([facility] st Contact Info) Description 02/15/2025 Telephone [facility] MEDICINE 230 [place] [address] Chato Thomason MD 505 [place] [address] Med Refill Social History Tobacco Use Types [...] 150 MG tablet To be sent to: [facility] documented in this encounter Plan of Treatment Upcoming Encounters Date Type Department Care Team ([facility] st Contact Info) Description 2025 11:00 AM EDT Telemedicine [facility] MED & PEDS 505 [place] [address] Linda Pelaez, WALT 505 [place] [address] 04/19/2025 2:00 PM EDT Office Visit [facility] MED & PEDS 505 [place] [address] Chato Thomason MD 505 [place] [address] 05/25/2025 3:15 PM EDT Office Visit [facility] ADULT DENTAL [address] [place] [address] Joe Nash, KARIN 505 [place] [address] documented as of this encounter Visit Diagnoses Not on filedocumented in this encounter Additional Health Concerns Assessment Noted Time PHQ-9 Depression Total Score: 19 024 3:44 PM EDT documented as of this encounter Care Teams Fios Line Installer Relationship Specialty Start Date End Date Chato Thomason MD 505 [place] [address] PCP - General Internal Medicine 10/27/18 Mackenzie Roland Mailroom Coordinator 07/09/24 Angela Pozo Mailroom Coordinator 07/09/24 [facility] 06/12/23 documented as of this encounter
--- OUTSIDE RECORDS SUMMARY | 2025-03-09 14:21 | XMS_ITS | Encounter Summary ---
Author Organization [employer] Address 75 [facility] 7 [place] [address] Care Team Providers Care Tire Care Manager Name Role Phone Chato Thomason MD Primary Care Provider [phone] Kelsey Minaya Unavailable Encounter Details Date Type Department Care Team (Late st Contact Info) Description 08/28/2023 Abstract [facility] MEDICINE 230 [place] [address] Chato Thomason MD 505 [place] [address] Social History Tobacco Use Types Packs/Day Years Used Date Smoking Tobacco: Former Cigarettes - 2022 Passive Smoke Exposure: Current Smokeless Tobacco: Former Comments:Has quit smoking co mpletely 6 months ago. Housing Stability Answer Date Recorded What is your housing situation today? I have edson fontiane 08/11/[address] you li [...] Info) Description 2025 11:00 AM EDT Telemedicine [facility] MED & PEDS 505 [place] [address] Linda Pelaez, WALT 505 [place] [address] 04/19/2025 2:00 PM EDT Office Visit [facility] MED & PEDS 505 [place] [address] Chato Thomason MD 505 [place] [address] 05/25/2025 3:15 PM EDT Office Visit [facility] ADULT DENTAL 505 [place] [address] Joe Nash DMD 505 [place] [address] documented as of this encounter Procedures Procedure [...] on filedocumented in this encounter Care Teams Tire Care Manager Relationship Specialty Start Date End Date Chato Thomason MD [address] [place] [address] PCP - General Internal Medicine 10/27/18 Kelsey Minaya Community Health Worker 06/08/2407/07 Eliane Metzger Router TenderCommercial Glazier 01/29/24 07/08/24 Mackenzie Roland Router Tender 07/09/24 Angela Pozo Router Tender 07/09/24 [facility] 06/12/23 documented as of this encounter
--- OUTSIDE RECORDS SUMMARY | 2025-03-09 14:21 | XMS_ITS | Encounter Summary ---
Author Organization [employer] Address 75 [facility] 7 [place] [address] Care Team Providers Care Doll Repairer Name Role Phone Chato Thomason MD Primary Care Provider [phone] Reason for Visit * Reason Onset Date Comments Med Refill 02/02/2025 Encounter Details Date Type Department Care Team ([facility] st Contact Info) Description 02/02/2025 Telephone [facility] MEDICINE 230 [place] [address] Chato Thomason MD 505 [place] [address] Med Refill Social History Tobacco Use Types [...] Miscellaneous Notes * Telephone Encounter - Reuben Edawrd - 02/02/2025 8:02 AM EDT TC from pt requesting medication refill. Medications needing refill : oxyCODONE (Roxicodone) 15 MG immediate release tablet To be sent to: [facility] - [place], [place] - [address] [place] [address] documented in this encounter Plan of Treatment Upcoming Encounters Date Type Department Care Team ([facility] st Contact Info) Description 2025 11:00 AM EDT Telemedicine [facility] MED & PEDS 505 [place] [address] Linda Pelaez RN 505 [place] [address] 04/19/2025 2:00 PM EDT Office Visit [facility] MED & PEDS 505 [place] [address] Chato Thomason MD 505 [place] [address] 05/25/2025 3:15 PM EDT Office Visit [facility] CHC ADULT DENTAL [address] [place] [address] Joe Nash DMD [address] [place] [address] documented as of this encounter Visit Diagnoses Diagnosis Squamous cell carcinoma of larynx (CMS/HCC) Malignant neoplasm of larynx, unspecified site documented in this encounter Additional Health Concerns Assessment Noted Time PHQ-9 Depression Total Score: 19 024 3:44 PM EDT documented as of this encounter Care Teams Doll Repairer Relationship Specialty Start Date End Date Chato Thomason MD [address] [place] [address] PCP - General Internal Medicine 10/27/18 Mackenzie Roland Occupational Psychologist 07/09/24 Angela Pozo Occupational Psychologist 07/09/24 [facility] 06/12/23 documented as of this encounter
--- OUTSIDE RECORDS SUMMARY | 2025-03-09 14:21 | XMS_ITS | Encounter Summary ---
Author Organization [employer] Address [address] [place] [address] 7 [place] [address] Care Team Providers Care Placement Assistant Name Role Phone Chato Thomason MD Primary Care Provider [phone] Reason for Visit * Reason Comments Med Refill Encounter Details Date Type Department Care Team ([facility] st Contact Info) Description 11/30/2024 Refill [facility] CHC MED & PEDS 505 [place], [place] [phone] Chato Thomason MD 505 [place] [address] Other insomnia; Anxiety; Anxiety; Squamous cell carcinoma [...] Upcoming Encounters Date Type Department Care Team ([facility] st Contact Info) Description 2025 11:00 AM EDT Telemedicine [facility] MED & PEDS 505 [place] [address] Linda Pelaez, WALT 505 [place] [address] 04/19/2025 2:00 PM EDT Office Visit [facility] MED & PEDS 505 [place] [address] Chato Thomason MD 505 [place] [address] 05/25/2025 3:15 PM EDT Office Visit [facility] ADULT DENTAL 505 [place] [address] Joe Nash, KARIN 505 [place] [address] documented as of this encounter Visit Diagnoses Diagnosis Other insomnia Anxiety Anxiety state, unspecified Squamous cell carcinoma of larynx (CMS/HCC) Malignant neoplasm of larynx, unspecified site documented in this encounter Additional Health Concerns Assessment Noted Time PHQ-9 Depression Total Score: 19 024 3:44 PM EDT documented as of this encounter Care Teams Placement Assistant Relationship Specialty Start Date End Date Chato Thomason MD 505 [place] [address] PCP - General Internal Medicine 10/27/18 Mackenzie Roland Forest Technology Professor 07/09/24 Angela Pozo Forest Technology Professor 07/09/24 [facility] 06/12/23 documented as of this encounter
--- OUTSIDE RECORDS SUMMARY | 2025-03-09 14:21 | XMS_ITS | Encounter Summary ---
Author Organization [employer] Address 75 [facility] 7 [place] [address] Care Team Providers Care Home Visits Nurse Name Role Phone Chato Thomason MD Primary Care Provider [phone] Reason for Visit * Reason Onset Date Comments Referral 11/30/2024 Medication Question 11/30/2024 Encounter Details Date Type Department Care Team ([facility] st Contact Info) Description 11/30/2024 Telephone [facility] MEDICINE 230 [place] [address] Chato Thomason MD 505 [place] [address] Referral; Medication Question Social History Tobacco Use [...] the pt is in. Contact pt at [phone] documented in this encounter Plan of Treatment Upcoming Encounters Date Type Department Care Team (Late st Contact Info) Description 2025 11:00 AM EDT Telemedicine [facility] MED & PEDS 505 [place] [address] Linda Pelaez, WALT 505 [place] [address] 04/19/2025 2:00 PM EDT Office Visit [facility] MED & PEDS 505 [place] [address] Chato Thomason MD 505 [place] [address] 05/25/2025 3:15 PM EDT Office Visit [facility] CHC ADULT DENTAL [address] [place], [place] [phone] Joe Nash DMD [address] [place] [address] documented as of this encounter Visit Diagnoses Not on filedocumented in this encounter Additional Health Concerns Assessment Noted Time PHQ-9 Depression Total Score: 19 024 3:44 PM EDT documented as of this encounter Care Teams Home Visits Nurse Relationship Specialty Start Date End Date Chato Thomason MD 505 [place] [address] PCP - General Internal Medicine 10/27/18 Maceknzie Roland Compliance Paralegal 07/09/24 Angela Pozo Compliance Paralegal 07/09/24 [facility] 06/12/23 documented as of this encounter
--- OUTSIDE RECORDS SUMMARY | 2025-03-09 14:21 | XMS_ITS | Encounter Summary ---
Author Organization [employer] Address [address] [place] [address] Care Team Providers Care Potato Seed Cutter Name Role Phone Chato Thomason MD Primary Care Provider [phone] Reason for Referral * Consultation (Routine) - Closed Specialty Diagnoses / Procedures Referred By Maryana singh Referred To Contact Occupational Therapy Diagnoses Neuropathic pain Physical deconditioning Chato Thomason MD 505 [place] [address] Phone: tel: fax: [facility] [address] Phone: tel: fax: Referral ID Status Reason Start Date Expiration Date V isits Requested Visits Authorized [id number] Closed Specialty Services Required 03/03/2025 03/03/2026 1 1 * Consultation (Routine) - Closed Specialty Diagnoses / Procedures Referred By Maryana singh Referred To Contact Physical Therapy Diagnoses Neuropathic pain Physical deconditioning Chato Thomason MD 505 [place] [address] Phone: tel: fax: [facility] [address] Phone: tel: fax: Referral ID Status Reason Start Date Expiration Date V isits Requested Visits Authorized [id number] Closed Specialty Services Required 02/21/2025 02/21/2026 20 20 Encounter Details Date Type Department Care Team (Late st Contact Info) Description 02/17/2025 Orders Only [facility] CHC MED & PEDS 505 [place] [address] Chato Thomason MD 505 [place] [address] Neuropathic pain (Primary Dx); Physical deconditioning Social [...] [facility] MED & PEDS 505 [place] [address] Linda Pelaez RN 505 [place] [address] 04/19/2025 2:00 PM EDT Office Visit [facility] MED & PEDS 505 [place] [address] Chato Thomason MD 505 [place] [address] 05/25/2025 3:15 PM EDT Office Visit [facility] ADULT DENTAL 505 [place] [address] Joe Nash, KARIN 505 [place] [address] Scheduled Referrals Name Type Priority Associated Diagnoses Orde r Schedule Referral to Physical Therapy Outpatient Referral Routine Neuropathic pain Physical deconditioning Expected: 02/17/2025 (Approximate), Expires: 02/17/2026 Referral to Occupational Therapy Outpatient Referral Routine Neuropathic pain Physical deconditioning Expected: 03/03/2025 (Approximate), Expires: 03/03/2026 documented as of this encounter Visit Diagnoses Diagnosis Neuropathic pain- Primary Physical deconditioning Muscular wasting and disuse atrophy, not elsewhere classified documented in this encounter Additional Health Concerns Assessment Noted Time PHQ-9 Depression Total Score: 19 024 3:44 PM EDT documented as of this encounter Care Teams Potato Seed Cutter Relationship Specialty Start Date End Date Chato Thomason MD 505 [place] [address] PCP - General Internal Medicine 10/27/18 Mackenzie Roland Developmental Mathematics Instructor 07/09/24 Angela Pozo Developmental Mathematics Instructor 07/09/24 [facility] 06/12/23 documented as of this encounter
--- OUTSIDE RECORDS SUMMARY | 2025-03-09 14:21 | XMS_ITS | Encounter Summary ---
Author Organization [employer] Address 75 [facility] 7t [place] [address] Care Team Providers Care Turbine Subassembler Name Role Phone Chato Thomason MD Primary Care Provider [phone] Encounter Details Date Type Department Care Team ([facility] st Contact Info) Description 12/02/2024 Orders Only [facility] CHC MED & PEDS [address] [place], [place] [phone] Chato Thomason MD 505 [place] [address] Neuropathic pain Social History Tobacco Use Types [...] [facility] 505 [place] [address] Linda Pelaez, WALT 505 [place] [address] 04/19/2025 2:00 PM EDT Office Visit [facility] MED & PEDS [address] [place] [address] Chato Thomason MD 505 [place] [address] 05/25/2025 3:15 PM EDT Office Visit [facility] ADULT DENTAL 505 [place] [address] Joe Nash DMD 505 [place] [address] documented as of this encounter Visit Diagnoses Diagnosis Neuropathic pain documented in this encounter Additional Health Concerns Assessment Noted Time PHQ-9 Depression Total Score: 19 024 3:44 PM EDT documented as of this encounter Care Teams Turbine Subassembler Relationship Specialty Start Date End Date Chato Thomason MD [address] [place] [address] PCP - General Internal Medicine 10/27/18 Mackenzie Roland Winding Lathe Operator 07/09/24 Angela Pozo Winding Lathe Operator 07/09/24 [facility] 06/12/23 documented as of this encounter
--- OUTSIDE RECORDS SUMMARY | 2025-03-09 14:21 | XMS_ITS | Encounter Summary ---
Author Organization [employer] Address 75 [facility] 7 [place] [address] Care Team Providers Care Seam Rubber Name Role Phone Chato Thomason MD Primary Care Provider [phone] Reason for Visit * Reason Onset Date Comments Med Refill 02/21/2025 Encounter Details Date Type Department Care Team ([facility] st Contact Info) Description 02/21/2025 Telephone [facility] MEDICINE 230 [place] [address] Chato Thomason MD 505 [place] [address] Med Refill Social History Tobacco Use Types [...] 1 MG tablet To be sent to: [facility] - [address] documented in this encounter Plan of Treatment Upcoming Encounters Date Type Department Care Team ([facility] st Contact Info) Description 2025 11:00 AM EDT Telemedicine [facility] MED & PEDS 505 [place] [address] Linda Pelaez RN 505 [place] [address] 04/19/2025 2:00 PM EDT Office Visit [facility] MED & PEDS [address] [place] [address] Chato Thomason MD 505 [place] [address] 05/25/2025 3:15 PM EDT Office Visit [facility] CHC ADULT DENTAL [address] [place] [address] Joe Nash DMD 505 [place], [place] [phone] documented as of this encounter Visit Diagnoses Not on filedocumented in this encounter Additional Health Concerns Assessment Noted Time PHQ-9 Depression Total Score: 19 024 3:44 PM EDT documented as of this encounter Care Teams Seam Rubber Relationship Specialty Start Date End Date Chato Thomason MD 505 [place] [address] PCP - General Internal Medicine 10/27/18 Mackenzie Roland Hospitality Housekeeper 07/09/24 Angela Pozo Hospitality Housekeeper 07/09/24 [facility] 06/12/23 documented as of this encounter
--- OUTSIDE RECORDS SUMMARY | 2025-03-09 14:21 | XMS_ITS | Encounter Summary ---
Author Organization [employer] Address [address] [place] [address] 7 [place] [address] Care Team Providers Care Social Work Therapist Name Role Phone Chato Thomason MD Primary Care Provider +[phone] Kelsey Minaya Unavailable Encounter Details Date Type Department Care Team (Late Contact Info) Description 07/03/2023 Orders Only [facility] MED & PEDS 505 [place] [address] Lucia Elmore LPN Social History Tobacco Use [...] [facility] 505 [place] [address] Linda Pelaez, WALT 505 [place] [address] 04/19/2025 2:00 PM EDT Office Visit [facility] MED & PEDS 505 [place] [address] Chato Thomason MD 505 [place] [address] 05/25/2025 3:15 PM EDT Office Visit [facility] CHC ADULT DENTAL 505 [place], [place] [phone] Joe Nash DMD 505 [place], [place] [phone] documented as of this encounter Visit Diagnoses Not on filedocumented in this encounter Care Teams Social Work Therapist Relationship Specialty Start Date End Date Chato Thomason MD [address] [place], [place] [address] PCP - General Internal Medicine 10/27/18 Kelsey Minaya Community Health Worker 06/08/2407/07 Eliane Metzger Physical Security SpecialistReject Opener 01/29/24 07/08/24 Mackenzie Roland Physical Security Specialist 07/09/24 Angela Pozo Physical Security Specialist 07/09/24 [facility] 06/12/23 documented as of this encounter
--- OUTSIDE RECORDS SUMMARY | 2025-03-09 14:21 | XMS_ITS | Encounter Summary ---
Author Organization [employer] Address 75 [facility] 7 [place] [address] Care Team Providers Care Media Marketing Manager Name Role Phone Chato Thomason MD Primary Care Provider [phone] Reason for Visit * Reason Onset Date Comments PT1 02/04/2025 Encounter Details Date Type Department Care Team ([facility] st Contact Info) Description 02/04/2025 Telephone [facility] MEDICINE 230 [place] [address] Chato Thomason MD 505 [place] [address] PT1 Social History Tobacco Use Types Packs/Day [...] Yes Provider name or facility name: [address] [place] [address] Escort needed: Y/N: Yes Do you have a wheelchair: Y/N: No If yes- Manual or electric: N/A Visits: ( 1x weekly) Patient calling requesting PT1 Home Address verified: Y/N: Yes Provider name or facility name: [address] [place] [address] Escort needed: Y/N: Yes Do you have a wheelchair: Y/N: No If yes- Manual or electric: N/A Visits: ( 1x month) documented in this encounter Plan of Treatment Upcoming Encounters Date Type Department Care Team (Late st Contact Info) Description 2025 11:00 AM EDT Telemedicine [facility] MED & PEDS 505 [place] [address] Linda Pelaez RN 505 [place] [address] 04/19/2025 2:00 PM EDT Office Visit [facility] MED & PEDS 505 [place] [address] Chato Thomason MD 505 [place] [address] 05/25/2025 3:15 PM EDT Office Visit [facility] ADULT DENTAL [address] [place] [address] Joe Nash DMD 505 [place] [address] documented as of this encounter Visit Diagnoses Not on filedocumented in this encounter Additional Health Concerns Assessment Noted Time PHQ-9 Depression Total Score: 19 024 3:44 PM EDT documented as of this encounter Care Teams Media Marketing Manager Relationship Specialty Start Date End Date Chato Thomason MD [address] [place] [address] PCP - General Internal Medicine 10/27/18 Mackenzie Roland Direct Support Professional Home Health 07/09/24 Angela Pozo Direct Support Professional Home Health 07/09/24 [facility] 06/12/23 documented as of this encounter
--- OUTSIDE RECORDS SUMMARY | 2025-03-09 14:21 | XMS_ITS | Encounter Summary ---
Author Organization [employer] Address 75 [facility] 7 [place] [address] Care Team Providers Care Rental Manager Name Role Phone Chato Thomason MD Primary Care Provider [phone] Kelsey Minaya Unavailable Encounter Details Date Type Department Care Team ([facility] st Contact Info) Description 08/13/2023 Orders Only [facility] MED & PEDS [address] [place], [place] [phone] Chato Thomason MD 505 [place], [place] [phone] Spongiotic dermatitis (Primary Dx) Social History Tobacco [...] Upcoming Encounters Date Type Department Care Team ([facility] st Contact Info) Description 2025 11:00 AM EDT Telemedicine [facility] MED & PEDS [address] [place] [address] Linda Pelaez RN 505 [place] [address] 04/19/2025 2:00 PM EDT Office Visit [facility] MED & PEDS [address] [place] [address] Chato Thomason MD 505 [place] [address] 05/25/2025 3:15 PM EDT Office Visit [facility] ADULT DENTAL [address] [place] [address] Joe Nash DMD [address] [place] [address] documented as of this encounter Visit Diagnoses Diagnosis Spongiotic dermatitis- Primary Contact dermatitis and other eczema, due to unspecified cause documented in this encounter Care Teams Rental Manager Relationship Specialty Start Date End Date Chato Thomason MD [address] [place] [address] PCP - General Internal Medicine 10/27/18 Kelsey Minaya Community Health Worker 06/08/2407/07 Eliane Metzger Retail Brand AmbassadorFacility Environmental Technician 01/29/24 07/08/24 Mackenzie Roland Retail Brand Ambassador 07/09/24 Angela Pozo Retail Brand Ambassador 07/09/24 [facility] 06/12/23 documented as of this encounter
--- OUTSIDE RECORDS SUMMARY | 2025-03-09 14:21 | XMS_ITS | Encounter Summary ---
Author Organization [employer] Address 75 [facility] 7 [place] [address] Care Team Providers Care Manager Engine Name Role Phone Chato Thomason MD Primary Care Provider [phone] Reason for Visit * Reason Onset Date Comments Med Refill 11/30/2024 Encounter Details Date Type Department Care Team ([facility] st Contact Info) Description 11/30/2024 Telephone [facility] MEDICINE [address] [place] [address] Chato Thomason MD [address] [place] [address] Med Refill Social History Tobacco Use Types [...] 50 MG tablet To be sent to: [facility] - [place], [place] - [address] [place] [address] documented in this encounter Plan of Treatment Upcoming Encounters Date Type Department Care Team ([facility] st Contact Info) Description 2025 11:00 AM EDT Telemedicine [facility] MED & PEDS [address] [place] [address] Linda Pelaez, WALT 505 [place] [address] 04/19/2025 2:00 PM EDT Office Visit [facility] MED & PEDS [address] [place] [address] Chato Thomason MD [address] [place] [address] 05/25/2025 3:15 PM EDT Office Visit [facility] ADULT DENTAL [address] [place], [place] [phone] Joe Nash, KARIN [address] [place] [address] documented as of this encounter Visit Diagnoses Not on filedocumented in this encounter Additional Health Concerns Assessment Noted Time PHQ-9 Depression Total Score: 19 024 3:44 PM EDT documented as of this encounter Care Teams Manager Engine Relationship Specialty Start Date End Date Chato Thomason MD [address] [place] [address] PCP - General Internal Medicine 10/27/18 Mackenzie Roland Harvest Field Ticketer 07/09/24 Angela Pozo Harvest Field Ticketer 07/09/24 [facility] 06/12/23 documented as of this encounter
[2025-03-09 14:22] VITALS: BP 125/60; O2SAT 95
== END 2025-03-09 14:49 | disposition home or self-care (01) ==
LOC: HO.PMC 14:16
PROVIDERS: PCP Internal Medicine; Visit Provider Registered Nurse Emergency
DX: G89.4 Chronic pain syndrome (principal); M54.2 Cervicalgia; G89.28 Other chronic postprocedural pain; G62.9 Polyneuropathy, unspecified; M54.16 Radiculopathy, lumbar region; G62.0 Drug-induced polyneuropathy; T45.1X5A Adverse effect of antineoplastic and immunosuppressive drugs, initial encounter
CPT/HCPCS: 99213

== ENCOUNTER → 2025-03-09 14:16 | Outpatient (BNVA) | payer MEDICAID, SELFPAY | PROVIDERS: PCP Internal Medicine; Visit Provider Registered Nurse Emergency | DX: G89.4 Chronic pain syndrome (principal); G62.0 Drug-induced polyneuropathy; T45.1X5A Adverse effect of antineoplastic and immunosuppressive drugs, initial encounter; M54.2 Cervicalgia; M54.16 Radiculopathy, lumbar region; X58.XXXA Exposure to other specified factors, initial encounter | CPT/HCPCS: 99212 ==

== ENCOUNTER 2025-06-30 10:30 | Outpatient (AMB) | payer MEDICAID, SELFPAY ==
--- NOTE | 2025-06-30 10:38 | A.OFFVIS_ITS ---
Intake Visit Reasons: consult Allergies lisinopril Allergy (Unknown, Verified 01/14/25 15:14) Swelling HPI Comments Details: Lawrence is in my office for evaluation and discussion about the procedure tomorrow Nevro spinal cord stimulator. 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 It would be very difficult to perform endotracheal intubation with adult endotracheal tube, it would be also dangerous to perform endotracheal intubation and then turned the patient into the prone positioned. The possibility exists to lose the endotracheal tube during the procedure and therefore it needs to be sutured to the skin of the patient. It appears to be rather complex anesthetic for for the procedure which would require mostly to needle sticks in the back. I discussed this with the patient. I offered him to perform this procedure under local anesthesia. If the patient likes the results of the trial of the spinal cord stimulator we could discuss possibility of referring him to tertiary care facility to perform implantation of the spinal cord stimulator with the neurosurgical implanted device in the facility where most complex airway management is available. The patient agreed to go for local anesthesia tomorrow for the trial. The patient is a 59-year-old male presenting with chemotherapy-induced peripheral neuropathy and chronic pain. His neuropathy began before chemotherapy but became severe following the treatment in February 2023. The patient reports burning and tingling pain in his feet, unrelieved by current pharmacological treatments such as gabapentin, methadone, and oxycodone. The pain, described as debilitating, has been progressive and impacts his functional ability. Prior treatments have been ineffective, and the patient has not worked since his symptoms intensified. The neuropathy is attributed to chemotherapy-induced nerve damage, a recognized complication of such treatment protocols. Recent EMG reviewed, results as per below - Onset and Timing: Initiated pre-chemotherapy but worsened significantly post-t reatment in February 2023. - Quality and Character: Burning and tingling sensations. - Primary Location: Feet. - Areas of Radiation: Not specified beyond feet. - Exacerbating Factors: Progressive worsening noted, unresponsive to currently administered medications. - Relieving Factors: None identified; current pharmacotherapy ineffective. - Interference with Activities: Significant impact on daily activities and work capability, unrelieved at present with existing treatment modalities. - Affect: Persistent and debilitating pain negatively influencing patient?s life quality. - Analgesia: Current regimen includes gabapentin, methadone, and oxycodone; all providing inadequate relief. - Adverse Effects: No specific side effects reported from current medications. - Activities of Daily Living: Severely impacted, with patient unable to return to work; goal is to alleviate pain to regain functional capability. - Aberrant Drug-Related Behaviors: No aberrant behaviors reported or indicated in medication usage. [facility] Medical History (Updated 06/29/25 @ 15:32 by Hailey Tam RN) Hx of radiation therapy History of chemotherapy jail use of opioid Lymphatic edema PTSD (post-traumatic stress disorder) Bronchitis SCC (squamous cell carcinoma) Hearing loss Eczema Depression Anxiety Severe episode of recurrent major depressive disorder Fistula GERD (gastroesophageal reflux disease) Dehiscence of wound Squamous cell carcinoma of larynx Osteoarthritis Hypertension Hypercholesterolemia COPD (chronic obstructive pulmonary disease) Simple chronic bronchitis Surgical History (Updated 06/29/25 @ 15:17 by Hailey Tam RN) S/P percutaneous endoscopic gastrostomy (PEG) tube placement Hx of tracheostomy Hx of skin graft History of abdominal wall debridement History of radical neck dissection (~01/27/24) Hx of tonsillectomy History of esophagogastroduodenoscopy (EGD) Hx of tooth extraction Hx of laryngectomy (~03/15/24) Social History Substance Use Type: Other Review of Systems Const All systems reviewed & are unremarkable except as noted in HPI and below Physical Exam General: awake, alert, oriented. Answers questions appropriately. Fully engaged in examination. Skin: warm, dry, intact. Scars from previous surgeries on the chest and left side neck. Lymphatic: Evidence of lymphedema in the neck area. HEENT: Normocephalic. Hearing intact. +Trach. Cardiac: External chest normal in appearance. Respiratory: No cough, audible wheezing or stridor. Abdomen: without gross distension. +feeding tube. MS: No obvious swelling or deformities. Neurological: Oriented to person, place, time and situation. Thought process intact. No gait abnormalities appreciated. Psychiatric: Appropriate mood and affect. Good judgment and insight. Assessment & Plan Assessment & Plan (1) Chronic pain syndrome: Code(s): G89.4 - Chronic pain syndrome Category: Medical (2) Anterior neck pain: Code(s): M54.2 - Cervicalgia Category: Medical (3) Other chronic postoperative pain: Code(s): G89.28 - Other chronic postprocedural pain Category: Medical (4) Peripheral neuropathy: Code(s): G62.9 - Polyneuropathy, unspecified Category: Medical (5) Lumbar radiculopathy: Code(s): M54.16 - Radiculopathy, lumbar region Category: Medical (6) Chemotherapy-induced neuropathy: Code(s): G62.0 - Drug-induced polyneuropathy; T45.1X5A - Adverse effect of antineoplastic and immunosuppressive drugs, initial encounter Category: Medical Plan For the treatment of chemotherapy-induced peripheral neuropathy of this patient is scheduled for Nevro spinal cord stimulator. Unfortunately anesthesia will be very risky for this patient. See discussion as above. Patient agreed to go for the procedure under local anesthesia without sedation. Anesthesia will be available only if the patient's condition will be getting worse. Patient agreed with the plan. Coding Level of Care Code Est Pt Level 3 (95130) Diagnoses Chronic pain syndrome G89.4 Anterior neck pain M54.2 Other chronic postoperative pain G89.28 Peripheral neuropathy G62.9 Lumbar radiculopathy M54.16 Chemotherapy-induced neuropathy G62.0; T45.1X5A
--- OUTSIDE RECORDS SUMMARY | 2025-06-30 11:50 | XMS_ITS | Clinical Summary ---
Author Organization 175 [facility] Address [address] [place] [address] Phone Care Team Providers Care Collections Representative Name Role Phone Physician, No Pcp Primary Care Provider Unavaila ble Active Problems Problem Noted Date Diagnosed Date Lymphatic edema 09/30/2024 Encounters Date Type Department Care Team Description 05/16/2025 1:30 PM EDT Treatment [facility] [address] [place] [phone] Philip Botelloa P, OTR/L Lymphedema of face (Primary Dx) 05/03/2025 11:00 AM EDT Treatment [facility] [address] [place] [phone] Esthela Botelloria P, OTR/L Lymphedema of face (Primary Dx) 04/28/2025 1:00 PM EDT Evaluation [facility] [address] [place] [phone] Philip Botelloa P, OTR/L Lymphedema of face (Primary Dx) 04/28/2025 Plan of Care Documentation [facility] [address] [place] [address] [phone] from Last 3 Months Social History Tobacco [...] Info) Description 07/11/2025 1:30 PM EDT Treatment [facility] [address] [facility] [address] [place] [phone] Nilam Botello P, OTR/L Health [...] edema Insurance MEDICAID - [place] Care Teams Collections Representative Relationship Specialty Start Date End Date Physician, No Pcp PCP - General 09/22/24
--- OUTSIDE RECORDS SUMMARY | 2025-06-30 11:50 | XMS_ITS | Encounter Summary ---
Author Organization [employer] Address 75 [facility] 7 [place] [address] Care Team Providers Care Tableau Administrator Name Role Phone Chato Thomason MD Primary Care Provider [phone] Reason for Visit * Reason Comments Med Refill Encounter Details Date Type Department Care Team ([facility] st Contact Info) Description 04/25/[address] [facility] MEDICINE [address] [place] [address] Chato Thomason MD [address] [place] [address] Anxiety Social History Tobacco Use Types Packs/Day [...] Care Team (Late st Contact Info) Description 07/18/2025 9:00 AM EDT Office Visit [facility] MED & PEDS [address] [place] [address] Chato Thomason MD [address] [place] [address] 07/27/2025 1:30 PM EDT Office Visit [facility] ADULT DENTAL [address] [place] [address] Joe Nash DMD [address] [place] [address] 07/28/2025 11:00 AM EDT Clinical Support [facility] MED & PEDS [address] [place] [address] Linda Pelaez RN [address] [place] [address] 09/12/2025 1:30 PM EST Telemedicine [facility] MED & PEDS [address] [place] [address] Linda Pelaez RN [address] [place] [address] documented as of this encounter Visit Diagnoses Diagnosis Anxiety Anxiety state, unspecified documented in this encounter Additional Health Concerns Assessment Noted Time PHQ-9 Depression Total Score: 19 024 3:44 PM EDT documented as of this encounter Care Teams Tableau Administrator Relationship Specialty Start Date End Date Chato Thomason MD 505 [facility] [place] [address] PCP - General Internal Medicine 10/27/18 Mackenzie Roland Varitypist 07/09/24 Angela Pozo Varitypist 07/09/24 06/12/25 [facility] 06/12/23 Ezekiel Patricia VaritypistField Hand 06/13/25 documented as of this encounter
--- OUTSIDE RECORDS SUMMARY | 2025-06-30 11:51 | XMS_ITS | Encounter Summary ---
Author Organization [employer] Address [address] [place] [address] 7 [place] [address] Care Team Providers Care Business Development Executive Name Role Phone Chato Thomason MD Primary Care Provider [phone] Encounter Details Date Type Department Care Team ([facility] st Contact Info) Description 04/25/2025 Orders Only [facility] CHC MED & PEDS [address] [place], [place] [phone] Chato Thomason MD [address] [place] [address] Anxiety Social History Tobacco Use Types Packs/Day [...] Description 07/18/2025 9:00 AM EDT Office Visit [facility] MED & PEDS [address] [place] [address] Chato Thomason MD [address] [place] [address] 07/27/2025 1:30 PM EDT Office Visit [facility] ADULT DENTAL [address] [place] [address] Joe Nash DMD [address] [place] [address] 07/28/2025 11:00 AM EDT Clinical Support [facility] MED & PEDS [address] [place] [address] Linda Pelaez RN [address] [place] [address] 09/12/2025 1:30 PM EST Telemedicine [facility] MED & PEDS [address] [place] [address] Linda Pelaez RN [address] [place] [address] documented as of this encounter Visit Diagnoses Diagnosis Anxiety Anxiety state, unspecified documented in this encounter Additional Health Concerns Assessment Noted Time PHQ-9 Depression Total Score: 19 024 3:44 PM EDT documented as of this encounter Care Teams Business Development Executive Relationship Specialty Start Date End Date Chato Thomason MD [address] [place] [address] PCP - General Internal Medicine 10/27/18 Mackenzie Roland Pricing Director 07/09/24 Angela Pozo Pricing Director 07/09/24 06/12/25 [facility] 06/12/23 Ezekiel Patricia Pricing DirectorCleat Feeder 06/13/25 documented as of this encounter
--- OUTSIDE RECORDS SUMMARY | 2025-06-30 11:51 | XMS_ITS | Encounter Summary ---
Author Organization [employer] Address 75 [facility] 7 [place] [address] Care Team Providers Care Supervisor Ticket Sales Name Role Phone Chato Thomason MD Primary Care Provider [phone] Reason for Visit * Reason Onset Date Comments Call Back Request 07/26/2024 Encounter Details Date Type Department Care Team ([facility] st Contact Info) Description 07/26/2024 Telephone [facility] MEDICINE [address] [place] [address] Chato Thomason MD [address] [place] [address] Call Back Request Social History Tobacco Use [...] 1:57 PM EDT Tc from Mackenzie with [facility] requesting status on referral for [facility] health stating it was discussedduring last visit. Please contact Mackenzie at [phone]. documented in this encounter Plan of Treatment Upcoming Encounters Date Type Department Care Team (Late st Contact Info) Description 07/18/2025 9:00 AM EDT Office Visit [facility] MED & PEDS [address] [place] [address] Chato Thomason MD [address] [place] [address] 07/27/2025 1:30 PM EDT Office Visit [facility] ADULT DENTAL [address] [place] [address] Joe Nash DMD [address] [place] [address] 07/28/2025 11:00 AM EDT Clinical Support [facility] MED & PEDS [address] [place] [address] Linda Pelaez, WALT [address] [place] [address] 09/12/2025 1:30 PM EST Telemedicine [facility] MED & PEDS [address] [place] [address] Linda Pelaez, WALT [address] [place] [address] documented as of this encounter Visit Diagnoses Not on filedocumented in this encounter Care Teams Supervisor Ticket Sales Relationship Specialty Start Date End Date Chato Thomason MD [address] [place] [address] PCP - General Internal Medicine 10/27/18 Mackenzie Roland Livestock Ranch Hand 07/09/24 Angela Pozo Livestock Ranch Hand 07/09/24 06/12/25 [facility] 06/12/23 Ezekiel Patricia Livestock Ranch HandPump Operator Byproducts 06/13/25 documented as of this encounter
--- OUTSIDE RECORDS SUMMARY | 2025-06-30 11:51 | XMS_ITS | Encounter Summary ---
Author Organization [employer] Address [address] [facility] 7 [place] [address] Care Team Providers Care Bilingual Sales Assistant Name Role Phone Chato Thomason MD Primary Care Provider [phone] Reason for Visit * Reason Onset Date Comments Med Refill 11/30/2024 Encounter Details Date Type Department Care Team ([facility] st Contact Info) Description 11/30/2024 Telephone [facility] MEDICINE [address] [place] [address] Chato Thomason MD [address] [place] [address] Med Refill Social History Tobacco Use Types [...] 50 MG tablet To be sent to: [facility] - [place], [place] - [address] [place] [address] documented in this encounter Plan of Treatment Upcoming Encounters Date Type Department Care Team (Late st Contact Info) Description 07/18/2025 9:00 AM EDT Office Visit [facility] MED & PEDS [address] [place] [address] Chato Thomason MD [address] [place] [address] 07/27/2025 1:30 PM EDT Office Visit [facility] ADULT DENTAL [address] [place] [address] Joe Nash DMD 505 [place] [address] 07/28/2025 11:00 AM EDT Clinical Support [facility] MED & PEDS [address] [place] [address] Linda Pelaez RN 505 [place] [address] 09/12/2025 1:30 PM EST Telemedicine [facility] MED & PEDS [address] [place] [address] Linda Pelaez RN 505 [place] [address] documented as of this encounter Visit Diagnoses Not on filedocumented in this encounter Additional Health Concerns Assessment Noted Time PHQ-9 Depression Total Score: 19 024 3:44 PM EDT documented as of this encounter Care Teams Bilingual Sales Assistant Relationship Specialty Start Date End Date Chato Thomason MD [address] [place] [address] PCP - General Internal Medicine 10/27/18 Mackenzie Roland Tool Design Drafter 07/09/24 Angela Pozo Tool Design Drafter 07/09/24 06/12/25 [facility] 06/12/23 Ezekiel Patricia Tool Design DrafterFibre Optics Jointer 06/13/25 documented as of this encounter
--- OUTSIDE RECORDS SUMMARY | 2025-06-30 11:51 | XMS_ITS | Encounter Summary ---
Author Organization [employer] Address [address] [facility] 7 [place] [address] Care Team Providers Care Lifeguard Name Role Phone Chato Thomason MD Primary Care Provider [phone] Reason for Visit * Reason Onset Date Comments Med Refill 04/18/2025 Encounter Details Date Type Department Care Team ([facility] st Contact Info) Description 04/18/2025 Telephone [facility] MEDICINE [address] [place] [address] Chato Thomason MD [address] [place] [address] Med Refill Social History Tobacco Use Types [...] * Telephone Encounter - Lupe Lopez - 04/18/2025 8:08 AM EDT TC from pt requesting medication refill. Medications needing refill: oxyCODONE (Roxicodone) 15 MG immediate release tablet To be sent to: [facility] - [address] documented in this encounter Plan of Treatment Upcoming Encounters Date Type Department Care Team ([facility] st Contact Info) Description 07/18/2025 9:00 AM EDT Office Visit [facility] MED & PEDS [address] [place] [address] Chato Thomason MD [address] [place] [address] 07/27/2025 1:30 PM EDT Office Visit [facility] ADULT DENTAL [address] [place] [address] Joe Nash DMD 505 [place] [address] 07/28/2025 11:00 AM EDT Clinical Support [facility] MED & PEDS 505 [place] [address] Linda Pelaez RN 505 [place] [address] 09/12/2025 1:30 PM EST Telemedicine [facility] MED & PEDS 505 [place] [address] Linda Pelaez RN 505 [place] [address] documented as of this encounter Visit Diagnoses Not on filedocumented in this encounter Additional Health Concerns Assessment Noted Time PHQ-9 Depression Total Score: 19 024 3:44 PM EDT documented as of this encounter Care Teams Lifeguard Relationship Specialty Start Date End Date Chato Thomason MD [address] [place] [address] PCP - General Internal Medicine 10/27/18 Mackenzie Roland Mixer Whipped Topping 07/09/24 Angela Pozo Mixer Whipped Topping 07/09/24 06/12/25 [facility] 06/12/23 Ezekiel Patricia Mixer Whipped ToppingSky Line Yarder 06/13/25 documented as of this encounter
--- OUTSIDE RECORDS SUMMARY | 2025-06-30 11:51 | XMS_ITS | Encounter Summary ---
Author Organization [employer] Address [address] [facility] 7 [place] [address] Care Team Providers Care Glass Carrier Name Role Phone Chato Thomason MD Primary Care Provider [phone] Reason for Visit * Reason Onset Date Comments Med Refill 03/14/2025 Encounter Details Date Type Department Care Team ([facility] st Contact Info) Description 03/14/2025 Telephone [facility] MEDICINE [address] [place] [address] Chato Thomason MD [address] [place] [address] Med Refill Social History Tobacco Use Types [...] * Telephone Encounter - Lupe Lopez - 03/14/2025 8:06 AM EDT TC from pt requesting medication refill. Medications needing refill : LORazepam (Ativan) 1 MG tablet oxyCODONE (Roxicodone) 15 MG immediate release tablet To be sent to: [facility] - [address] documented in this encounter Plan of Treatment Upcoming Encounters Date Type Department Care Team ([facility] st Contact Info) Description 07/18/2025 9:00 AM EDT Office Visit [facility] MED & PEDS 505 [place] [address] Chato Thomason MD [address] [place] [address] 07/27/2025 1:30 PM EDT Office Visit [facility] ADULT DENTAL 505 [place], [place] [phone] Joe Nash DMD 505 [place] [address] 07/28/2025 11:00 AM EDT Clinical Support [facility] MED & PEDS [address] [place] [address] Linda Pelaez RN 505 [place] [address] 09/12/2025 1:30 PM EST Telemedicine [facility] MED & PEDS [address] [place] [address] Linda Pelaez RN [address] [place] [address] documented as of this encounter Visit Diagnoses Not on filedocumented in this encounter Additional Health Concerns Assessment Noted Time PHQ-9 Depression Total Score: 19 024 3:44 PM EDT documented as of this encounter Care Teams Glass Carrier Relationship Specialty Start Date End Date Chato Thomason MD [address] [place] [address] PCP - General Internal Medicine 10/27/18 Mackenzie Roladn Live Ammunition Inspector 07/09/24 Angela Pozo Live Ammunition Inspector 07/09/24 06/12/25 [facility] 06/12/23 Ezekiel Patricia Live Ammunition InspectorDry Mill Operator 06/13/25 documented as of this encounter
--- OUTSIDE RECORDS SUMMARY | 2025-06-30 11:51 | XMS_ITS | Encounter Summary ---
Author Organization [employer] Address [address] [place] [address] [place], [place] [address] Care Team Providers Care Community Director Name Role Phone Chato Thomason MD Primary Care Provider [phone] Kelsey Minaya Unavailable Encounter Details Date Type Department Care Team (Late Contact Info) Description 12/04/2022 Abstract [facility] MEDICINE [address] [place], [place] [phone] Chato Thomason MD [address] [place], [place] [phone] Social History Tobacco Use Types Packs/Day Years [...] Department Care Team (Late Contact Info) Description 07/18/2025 9:00 AM EDT Office Visit [facility] MED & PEDS [address] [place] [address] Chato Thomason MD [address] [place], [place] [phone] 07/27/2025 1:30 PM EDT Office Visit [facility] ADULT DENTAL [address] [place], [place] [phone] Joe Nash DMD [address] [place] [address] 07/28/2025 11:00 AM EDT Clinical Support [facility] MED & PEDS [address] [place] [address] Linda Pelaez RN [address] [place] [address] 09/12/2025 1:30 PM EST Telemedicine [facility] MED & PEDS [address] [place] [address] Linda Pelaez RN [address] [place] [address] documented as of this encounter Visit Diagnoses Not on filedocumented in this encounter Care Teams Community Director Relationship Specialty Start Date End Date Chato Thomason MD [address] [place] [address] PCP - General Internal Medicine 10/27/18 Kelsey Minaya Community Health Worker 06/08/2407/07 Eliane Metzger Emergency Services DirectorWool Mixer 01/29/24 07/08/24 Mackenzie Roland Emergency Services Director 07/09/24 Angela Pozo Emergency Services Director 07/09/24 06/12/25 [facility] 06/12/23 Ezekiel Patricia Emergency Services DirectorWool Mixer 06/13/25 documented as of this encounter
--- OUTSIDE RECORDS SUMMARY | 2025-06-30 11:51 | XMS_ITS | Encounter Summary ---
Author Organization [employer] Address 75 [facility] 7 [place] [address] Care Team Providers Care Chemistry Lecturer Name Role Phone Chato Thomason MD Primary Care Provider [phone] Encounter Details Date Type Department Care Team ([facility] st Contact Info) Description 07/22/2024 Orders Only [facility] CHC MED & PEDS [address] [place], [place] [phone] Chato Thomason MD [address] [place], [place] [phone] Anxiety Social History Tobacco Use Types Packs/Day [...] the past 12 months, has t he [employer], [employer], oil or water [employer] threatened to shut off services in your [...] Description 07/18/2025 9:00 AM EDT Office Visit [facility] MED & PEDS [address] [place] [address] Chato Thomason MD [address] [place] [address] 07/27/2025 1:30 PM EDT Office Visit [facility] ADULT DENTAL [address] [place] [address] Joe Nash, DMD [address] [place] [address] 07/28/2025 11:00 AM EDT Clinical Support [facility] MED & PEDS [address] [place] [address] Linda Pelaez, WALT 505 [place] [address] 09/12/2025 1:30 PM EST Telemedicine [facility] MED & PEDS [address] [place] [address] Linda Pelaez, WALT 505 [place] [address] documented as of this encounter Visit Diagnoses Diagnosis Anxiety Anxiety state, unspecified documented in this encounter Care Teams Chemistry Lecturer Relationship Specialty Start Date End Date Chato Thomason MD [address] [place] [address] PCP - General Internal Medicine 10/27/18 Mackenzie Roland Ripshear Operator 07/09/24 Angela Pozo Ripshear Operator 07/09/24 06/12/25 [facility] 06/12/23 Ezekiel Patricia Ripshear OperatorShirrer 06/13/25 documented as of this encounter
--- OUTSIDE RECORDS SUMMARY | 2025-06-30 11:51 | XMS_ITS | Encounter Summary ---
Author Organization [employer] Address [address] [place] [address] 7 [place] [address] Care Team Providers Care Firebreak Cutter Name Role Phone Chato Thomason MD Primary Care Provider [phone] Encounter Details Date Type Department Care Team ([facility] st Contact Info) Description 03/24/2025 Orders Only [facility] CHC MED & PEDS [address] [place], [place] [phone] Chato Thomason MD [address] [place], [place] [phone] Neuropathic pain Social History Tobacco Use Types [...] 07/18/2025 9:00 AM EDT Office Visit [facility] MED & PEDS [address] [place] [address] Chato Thomason MD 505 [place] [address] 07/27/2025 1:30 PM EDT Office Visit [facility] ADULT DENTAL [address] [place] [address] Joe Nash DMD [address] [place] [address] 07/28/2025 11:00 AM EDT Clinical Support [facility] MED & PEDS [address] [place] [address] Linda Pelaez RN [address] [place] [address] 09/12/2025 1:30 PM EST Telemedicine [facility] MED & PEDS [address] [place] [address] Linda Pelaez RN [address] [place] [address] documented as of this encounter Visit Diagnoses Diagnosis Neuropathic pain documented in this encounter Additional Health Concerns Assessment Noted Time PHQ-9 Depression Total Score: 19 024 3:44 PM EDT documented as of this encounter Care Teams Firebreak Cutter Relationship Specialty Start Date End Date Chato Thomason MD [address] [place] [address] PCP - General Internal Medicine 10/27/18 Mackenzie Roland Pick Up Driver 07/09/24 Angela Pozo Pick Up Driver 07/09/24 06/12/25 [facility] 06/12/23 Ezekiel Patricia Pick Up DriverYoker Machine Operator 06/13/25 documented as of this encounter
--- OUTSIDE RECORDS SUMMARY | 2025-06-30 11:51 | XMS_ITS | Encounter Summary ---
Author Organization [employer] Address [address] [place] [address] 7 [place] [address] Care Team Providers Care Yolk Spray Drier Name Role Phone Chato Thomason MD Primary Care Provider [phone] Reason for Visit * Reason Comments Med Refill Encounter Details Date Type Department Care Team ([facility] st Contact Info) Description 11/30/2024 Refill [facility] CHC MED & PEDS [address] [place], [place] [phone] Chato Thomason MD [address] [place] [address] Other insomnia; Anxiety; Anxiety; Squamous cell carcinoma [...] 650 mg 3 times a day and wewill try to get feedback in 2 to 3 weeks on the outcome. documented in this encounter Plan of Treatment Upcoming Encounters Date Type Department Care Team ([facility] Contact Info) Description 07/18/2025 9:00 AM EDT Office Visit [facility] MED & PEDS [address] [place] [address] Chato Thomason MD 505 [place] [address] 07/27/2025 1:30 PM EDT Office Visit [facility] ADULT DENTAL [address] [place] [address] Joe Nash, DMD [address] [place] [address] 07/28/2025 11:00 AM EDT Clinical Support [facility] MED & PEDS [address] [place] [address] Linda Pelaez RN 505 [place] [address] 09/12/2025 1:30 PM EST Telemedicine [facility] MED & PEDS [address] [place] [address] Linda Pelaez RN [address] [place] [address] documented as of this encounter Visit Diagnoses Diagnosis Other insomnia Anxiety Anxiety state, unspecified Squamous cell carcinoma of larynx (CMS/HCC) Malignant neoplasm of larynx, unspecified site documented in this encounter Additional Health Concerns Assessment Noted Time PHQ-9 Depression Total Score: 19 024 3:44 PM EDT documented as of this encounter Care Teams Yolk Spray Drier Relationship Specialty Start Date End Date Chato Thomason MD [address] [place] [address] PCP - General Internal Medicine 10/27/18 Mackenzie Roland Acute Specialist 07/09/24 Angela Pozo Acute Specialist 07/09/24 06/12/25 [facility] 06/12/23 Ezekiel Patricia Acute SpecialistTandem Mill Operator 06/13/25 documented as of this encounter
--- OUTSIDE RECORDS SUMMARY | 2025-06-30 11:51 | XMS_ITS | Encounter Summary ---
Author Organization [employer] Address [address] [place] [address] 7 [place] [address] Care Team Providers Care Decorator Hand Name Role Phone Chato Thomason MD Primary Care Provider [phone] Reason for Visit * Reason Onset Date Comments Referral 08/05/2024 Encounter Details Date Type Department Care Team ([facility] Contact Info) Description 08/05/2024 Telephone [facility] CHC MED & PEDS [address] [place], [place] [phone] Chato Thomason MD [address] [place] [address] Referral Social History Tobacco Use Types Packs/Day [...] requesting to re new referral to Location: [facility] Address: [address] [place] [address] documented in this encounter Plan of Treatment Upcoming Encounters Date Type Department Care Team (Late st Contact Info) Description 07/18/2025 9:00 AM EDT Office Visit [facility] MED & PEDS [address] [place] [address] Chato Thomason MD [address] [place] [address] 07/27/2025 1:30 PM EDT Office Visit [facility] ADULT DENTAL [address] [place], [place] [phone] Joe Nash, DMD 505 [place] [address] 07/28/2025 11:00 AM EDT Clinical Support [facility] MED & PEDS [address] [place] [address] Linda Pelaez, WALT 505 [place] [address] 09/12/2025 1:30 PM EST Telemedicine [facility] MED & PEDS [address] [place] [address] Linda Pelaez RN 505 [place] [address] documented as of this encounter Visit Diagnoses Not on filedocumented in this encounter Additional Health Concerns Assessment Noted Time PHQ-9 Depression Total Score: 19 024 3:44 PM EDT documented as of this encounter Care Teams Decorator Hand Relationship Specialty Start Date End Date Chato Thomason MD [address] [place] [address] PCP - General Internal Medicine 10/27/18 Mackenzie Roland Senior Telecommunications Engineer 07/09/24 Angela Pozo Senior Telecommunications Engineer 07/09/24 06/12/25 [facility] 06/12/23 Ezekiel Patricia Senior Telecommunications EngineerBreaker Boss 06/13/25 documented as of this encounter
--- OUTSIDE RECORDS SUMMARY | 2025-06-30 11:51 | XMS_ITS | Encounter Summary ---
Author Organization [employer] Address 75 [facility] 7t [place] [address] Care Team Providers Care Medical Biller Coder Name Role Phone Chato Thomason MD Primary Care Provider [phone] Encounter Details Date Type Department Care Team ([facility] st Contact Info) Description 08/05/2024 Orders Only [facility] CHC MED & PEDS [address] [place], [place] [phone] ProviderColleen MD Social History Tobacco Use Types [...] Description 07/18/2025 9:00 AM EDT Office Visit [facility] MED & PEDS [address] [place] [address] Chato Thomason MD 505 [place] [address] 07/27/2025 1:30 PM EDT Office Visit [facility] ADULT DENTAL 505 [place] [address] Joe Nash DMD 505 [place] [address] 07/28/2025 11:00 AM EDT Clinical Support [facility] MED & PEDS [address] [place] [address] Linda Pelaez RN 505 [place] [address] 09/12/2025 1:30 PM EST Telemedicine [facility] MED & PEDS [address] [place] [address] Linda Pelaez RN 505 [place] [address] documented as of this encounter Procedures Procedure [...] documented as of this encounter Care Teams Medical Biller Coder Relationship Specialty Start Date End Date Chato Thomason MD [address] [place] [address] PCP - General Internal Medicine 10/27/18 Mackenzie Roland Sheriff'S Officer 07/09/24 Angela Pozo Sheriff'S Officer 07/09/24 06/12/25 [facility] 06/12/23 Ezekiel Patricia Sheriff'S OfficerBoard Certified Music Therapist 06/13/25 documented as of this encounter
--- OUTSIDE RECORDS SUMMARY | 2025-06-30 11:51 | XMS_ITS | Encounter Summary ---
Author Organization [employer] Address [address] [place] [address] [address] Care Team Providers Care Resource Efficiency Manager Name Role Phone Chato Thomason MD Primary Care Provider [phone] Reason for Referral * Consultation (Routine) - Closed Specialty Diagnoses / Procedures Referred By Maryana singh Referred To Contact Dermatology Diagnoses Spongiotic dermatitis Chato Thomason MD [address] [place] [address] Phone: tel: fax: Gail Srinivasan [address] [place] [address] Phone: tel: fax: Referral ID Status Reason Start Date Expiration Date V isits Requested Visits Authorized [id number] Closed Specialty Services Required 08/25/2024 08/25/2025 1 1 Encounter Details Date Type Department Care Team ([facility] st Contact Info) Description 08/24/2024 Orders Only [facility] CHC MED & PEDS [address] [place], [place] [phone] Chato Thomason MD [address] [place], [place] [phone] Spongiotic dermatitis (Primary Dx) Social History Tobacco [...] 9:00 AM EDT Office Visit [facility] MED & PEDS [address] [place] [address] Chato Thomason MD [address] [place] [address] 07/27/2025 1:30 PM EDT Office Visit [facility] ADULT DENTAL [address] [place], [place] [phone] Joe Nash, DMD [address] [place] [address] 07/28/2025 11:00 AM EDT Clinical Support [facility] MED & PEDS [address] [place] [address] Linda Pelaez, WALT 505 [place] [address] 09/12/2025 1:30 PM EST Telemedicine [facility] MED & PEDS [address] [place] [address] Linda Pelaez RN 505 [place] [address] Scheduled Referrals Name Type Priority Associated Diagnoses [...] documented as of this encounter Care Teams Resource Efficiency Manager Relationship Specialty Start Date End Date Chato Thomason MD [address] [place] [address] PCP - General Internal Medicine 10/27/18 Mackenzie Roland Orchard Worker 07/09/24 Angela Pozo Orchard Worker 07/09/24 06/12/25 [facility] 06/12/23 Ezekiel Patricia Orchard WorkerPower Grader Operator 06/13/25 documented as of this encounter
--- OUTSIDE RECORDS SUMMARY | 2025-06-30 11:51 | XMS_ITS | Encounter Summary ---
Author Organization [employer] Address [address] [place] [address] 7 [place] [address] Care Team Providers Care Hand Almond Blancher Name Role Phone Chato Thomason MD Primary Care Provider [phone] Encounter Details Date Type Department Care Team ([facility] st Contact Info) Description 12/02/2024 Orders Only [facility] CHC MED & PEDS [address] [place], [place] [phone] Chato Thomason MD [address] [place] [address] Neuropathic pain Social History Tobacco Use Types [...] Description 07/18/2025 9:00 AM EDT Office Visit [facility] MED & PEDS [address] [place] [address] Chato Thomason MD [address] [place] [address] 07/27/2025 1:30 PM EDT Office Visit [facility] ADULT DENTAL [address] [place] [address] Joe Nash DMD [address] [place] [address] 07/28/2025 11:00 AM EDT Clinical Support [facility] MED & PEDS [address] [place] [address] Linda Pelaez RN 505 [place] [address] 09/12/2025 1:30 PM EST Telemedicine [facility] MED & PEDS [address] [place] [address] Linda Pelaez RN [address] [place] [address] documented as of this encounter Visit Diagnoses Diagnosis Neuropathic pain documented in this encounter Additional Health Concerns Assessment Noted Time PHQ-9 Depression Total Score: 19 024 3:44 PM EDT documented as of this encounter Care Teams Hand Almond Blancher Relationship Specialty Start Date End Date Chato Thomason MD [address] [place] [address] PCP - General Internal Medicine 10/27/18 Mackenzie Roland Plate Glass Grinder 07/09/24 Angela Pozo Plate Glass Grinder 07/09/24 06/12/25 [facility] 06/12/23 Ezekiel Patricia Plate Glass GrinderClinical Nurse Educator 06/13/25 documented as of this encounter
--- OUTSIDE RECORDS SUMMARY | 2025-06-30 11:51 | XMS_ITS | Encounter Summary ---
Author Organization [employer] Address 75 [facility] 7 [place] [address] Care Team Providers Care Game Breeding Farm Manager Name Role Phone Chato Thomason MD Primary Care Provider [phone] Reason for Visit * Reason Onset Date Comments Referral 11/30/2024 Medication Question 11/30/2024 Encounter Details Date Type Department Care Team ([facility] st Contact Info) Description 11/30/2024 Telephone [facility] MEDICINE [address] [place] [address] Chato Thomason MD [address] [place] [address] Referral; Medication Question Social History Tobacco Use [...] the pt is in. Contact pt at [phone] documented in this encounter Plan of Treatment Upcoming Encounters Date Type Department Care Team (Late st Contact Info) Description 07/18/2025 9:00 AM EDT Office Visit [facility] [address] [place] [address] Chato Thomason MD [address] [place] [address] 07/27/2025 1:30 PM EDT Office Visit [facility] AD[facility] DENT[facility] [address] [place] [address] Joe Nash DMD [address] [place] [address] 07/28/2025 11:00 AM EDT Clinical Support [facility] [address] [place] [address] Linda Pelaez RN [address] [place] [address] 09/12/2025 1:30 PM EST Telemedicine [facility] [address] [place] [address] Linda Pelaez RN [address] [place] [address] documented as of this encounter Visit Diagnoses Not on filedocumented in this encounter Additional Health Concerns Assessment Noted Time PHQ-9 Depression Total Score: 19 024 3:44 PM EDT documented as of this encounter Care Teams Game Breeding Farm Manager Relationship Specialty Start Date End Date Chato Thomason MD [address] [place] [address] PCP - General Internal Medicine 10/27/18 Mackenzie Roland Fiscal Economist 07/09/24 Angela Pozo Fiscal Economist 07/09/24 06/12/25 [facility] 06/12/23 Ezekiel Patricia Fiscal EconomistPlastic Machine Operator 06/13/25 documented as of this encounter
--- OUTSIDE RECORDS SUMMARY | 2025-06-30 11:51 | XMS_ITS | Encounter Summary ---
Author Organization [employer] Address 75 [facility] 7 [place] [address] Care Team Providers Care Front End Technician Name Role Phone Chato Thomason MD Primary Care Provider [phone] Reason for Visit * Reason Onset Date Comments Order 03/14/2025 Encounter Details Date Type Department Care Team ([facility] st Contact Info) Description 03/14/2025 Telephone [facility] MEDICINE [address] [place] [address] Chato Thomason MD [address] [place] [address] Order Social History Tobacco Use Types Packs/Day Years [...] * Telephone Encounter - Familia Preston - 03/14/2025 3:44 PM EDT Tc from Stan with outpatient rehab in [facility] in regards neuropathic pain order stating it would need to be changed to lymphedema order due to the being 2 different diagnoses. Stan requested order be put Attention to Stan If any questions you can contact Stan at [phone]. documented in this encounter Plan of Treatment Upcoming Encounters Date Type Department Care Team ([facility] st Contact Info) Description 07/18/2025 9:00 AM EDT Office Visit [facility] MED [facility]ED[facility] [address] [place] [address] Chato Thomason MD [address] [place] [address] 07/27/2025 1:30 PM EDT Office Visit [facility] ADULT DENTAL [address] [place] [address] Joe Nash DMD [address] [place] [address] 07/28/2025 11:00 AM EDT Clinical Support [facility] [address] [place] [address] Linda Pelaez RN [address] [place] [address] 09/12/2025 1:30 PM EST Telemedicine [facility] [address] [place] [address] Linda Pelaez RN [address] [place] [address] documented as of this encounter Visit Diagnoses Not on filedocumented in this encounter Additional Health Concerns Assessment Noted Time PHQ-9 Depression Total Score: 19 024 3:44 PM EDT documented as of this encounter Care Teams Front End Technician Relationship Specialty Start Date End Date Chato Thomason MD [address] [place] [address] PCP - General Internal Medicine 10/27/18 Mackenzie Roland Space And Missile Operations 07/09/24 Angela Pozo Space And Missile Operations 07/09/24 06/12/25 [facility] 06/12/23 Ezekiel aPtricia Space And Missile OperationsChief Embalmer 06/13/25 documented as of this encounter
--- OUTSIDE RECORDS SUMMARY | 2025-06-30 11:51 | XMS_ITS | Encounter Summary ---
Author Organization [employer] Address [address] [place] [address] [address] Care Team Providers Care Guidance Services Coordinator Name Role Phone Chato Thomason MD Primary Care Provider [phone] Kelsey Minaya Unavailable Encounter Details Date Type Department Care Team (Late Contact Info) Description 12/04/2022 Abstract [facility] MEDICINE [address] [place], [place] [phone] Chato Thomason MD [address] [place], [place] [phone] Social History Tobacco Use Types Packs/Day Years [...] 9:00 AM EDT Office Visit [facility] MED [facility] PED[facility] [address] [place] [address] Chato Thomason MD [address] [place], [place] [phone] 07/27/2025 1:30 PM EDT Office Visit [facility] ADULT DENTAL [address] [place], [place] [phone] Joe Nash DMD [address] [place] [address] 07/28/2025 11:00 AM EDT Clinical Support [facility] [address] [place] [address] Linda Pelaez RN [address] [place] [address] 09/12/2025 1:30 PM EST Telemedicine [facility] [address] [place] [address] Linda Pelaez RN [address] [place] [address] documented as of this encounter Visit Diagnoses Not on filedocumented in this encounter Care Teams Guidance Services Coordinator Relationship Specialty Start Date End Date Chato Thomason MD [address] [place] [address] PCP - General Internal Medicine 10/27/18 Kelsey Minaya Community Health Worker 06/08/2407/07 Eliane Metzger Water Use InspectorPipe Setter 01/29/24 07/08/24 Mackenzie Roland Water Use Inspector 07/09/24 Angela Pozo Water Use Inspector 07/09/24 06/12/25 [facility] 06/12/23 Ezekiel Patricia Water Use InspectorPipe Setter 06/13/25 documented as of this encounter
--- OUTSIDE RECORDS SUMMARY | 2025-06-30 11:51 | XMS_ITS | Encounter Summary ---
Author Organization [employer] Address [address] [place] [address] [address] [address] Care Team Providers Care Hospital Social Worker Name Role Phone Chato Thomason MD Primary Care Provider [phone] Kelsey Minaya Unavailable Encounter Details Date Type Department Care Team (Late Contact Info) Description 07/03/2023 Orders Only [facility] MED & PEDS [address] [place] [address] Lucia Elmore LPN Social History Tobacco Use [...] Description 07/18/2025 9:00 AM EDT Office Visit [facility] MED & PEDS [address] [place] [address] Chato Thomason MD [address] [place] [address] 07/27/2025 1:30 PM EDT Office Visit [facility] ADULT DENTAL [address] [place] [address] Joe Nash DMD [address] [place] [address] 07/28/2025 11:00 AM EDT Clinical Support [facility] MED & PED[facility] [address] [place] [address] Linda Pelaez RN [address] [place] [address] 09/12/2025 1:30 PM EST Telemedicine [facility] MED & PED[facility] [address] [place] [address] Linda Pelaez RN [address] [place] [address] documented as of this encounter Visit Diagnoses Not on filedocumented in this encounter Care Teams Hospital Social Worker Relationship Specialty Start Date End Date Chato Thomason MD [address] [place] [address] PCP - General Internal Medicine 10/27/18 Kelsey Minaya Community Health Worker 06/08/2407/07 Eliane Metzger Wheel RollerDirector Of Compensation 01/29/24 07/08/24 Mackenzie Roland Wheel Roller 07/09/24 Angela Pozo Wheel Roller 07/09/24 06/12/25 [facility] 06/12/23 Ezekiel Patricia Wheel RollerDirector Of Compensation 06/13/25 documented as of this encounter
--- OUTSIDE RECORDS SUMMARY | 2025-06-30 11:51 | XMS_ITS | Encounter Summary ---
Author Organization [employer] Address [address] [place] [address] 7 [place] [address] Care Team Providers Care Airport Operations Specialist Name Role Phone Chato Thomason MD Primary Care Provider [phone] Encounter Details Date Type Department Care Team ([facility] st Contact Info) Description 05/11/2025 Orders Only [facility] MED & PEDS [address] [place], [place] [phone] Chato Thomason MD [address] [place] [address] Social History Tobacco Use Types Packs/Day Years [...] Description 07/18/2025 9:00 AM EDT Office Visit [facility] MED & PEDS [address] [place] [address] Chato Thomason MD [address] [place] [address] 07/27/2025 1:30 PM EDT Office Visit [facility] ADULT DENTAL [address] [place] [address] Joe Nash DMD [address] [place] [address] 07/28/2025 11:00 AM EDT Clinical Support [facility]ED[facility] [address] [place] [address] Linda Pelaez RN [address] [place] [address] 09/12/2025 1:30 PM EST Telemedicine [facility] [address] [place] [address] Linda Pelaez RN [address] [place] [address] documented as of this encounter Visit Diagnoses Not on filedocumented in this encounter Additional Health Concerns Assessment Noted Time PHQ-9 Depression Total Score: 19 024 3:44 PM EDT documented as of this encounter Care Teams Airport Operations Specialist Relationship Specialty Start Date End Date Chato Thomason MD [address] [place] [address] PCP - General Internal Medicine 10/27/18 Mackenzie Roland Pony Edger 07/09/24 Angela Pozo Pony Edger 07/09/24 06/12/25 [facility] 06/12/23 Ezekiel Patricia Pony EdgerEntry Processor 06/13/25 documented as of this encounter
--- OUTSIDE RECORDS SUMMARY | 2025-06-30 11:51 | XMS_ITS | Encounter Summary ---
Author Organization [employer] Address [address] [place] [address] Care Team Providers Care Ground Host/Hostess Name Role Phone Chato Thomason MD Primary Care Provider [phone] Kelsey Minaya Unavailable Reason for Visit * Reason Onset Date Comments VNA Orders 07/28/2023 Encounter Details Date Type Department Care Team ([facility] st Contact Info) Description 07/28/[address] [facility]C MED & PEDS [address] [place], [place] [phone] Chato Thomason MD [address] [place] [address] VNA Orders Social History Tobacco Use Types [...] Miscellaneous Notes * Telephone Encounter - Bing Meza Moreira - 07/28/2023 3:40 PM EDT Tc from [facility] requesting two VNA orders for: Face to Face Encounter Dated on 06/11/2023 (Please fax over office notes) Physician order Dated on 06/11/2023 [place] states that orders have a 30 day time frame. Please fax over at [phone] Please If any questions please contact Anabela at [phone] documented in this encounter Plan of Treatment Upcoming Encounters Date Type Department Care Team (Late st Contact Info) Description 07/18/2025 9:00 AM EDT [facility] [address] [place] [address] Chato Thomason MD [address] [place] [address] 07/27/2025 1:30 PM EDT Office Visit [facility] ADULT D[facility] [address] [place] [address] Joe Nash DMD [address] [place] [address] 07/28/2025 11:00 AM EDT Clinical Support [facility] [address] [place] [address] Linda Pelaez, WALT [address] [place] [address] 09/12/2025 1:30 PM EST Telemedicine [facility] [address] [place] [address] Linda Pelaez, RN [address] [place] [address] documented as of this encounter Visit Diagnoses Not on filedocumented in this encounter Care Teams Ground Host/Hostess Relationship Specialty Start Date End Date Chato Thomason MD [address] [place] [address] PCP - General Internal Medicine 10/27/18 Kelsey Minaya Community Health Worker 06/08/2407/07 Eliane Metzger Injection Molding OperatorPhlebotomy Technologist 01/29/24 07/08/24 Mackenzie Roland Injection Molding Operator 07/09/24 Angela Pozo Injection Molding Operator 07/09/24 06/12/25 [facility] 06/12/23 Ezekiel Patricia Injection Molding OperatorPhlebotomy Technologist 06/13/25 documented as of this encounter
--- OUTSIDE RECORDS SUMMARY | 2025-06-30 11:51 | XMS_ITS | Encounter Summary ---
Author Organization [employer] Address 75 [facility] 7 [place] [address] Care Team Providers Care Line Maintenance Name Role Phone Chato Thomason MD Primary Care Provider [phone] Kelsey Minaya Unavailable Encounter Details Date Type Department Care Team (Late st Contact Info) Description 11/05/2023 Abstract [facility] MEDICINE [address] [place] [address] Chato Thomason MD [address] [place], [place] [phone] Social History Tobacco Use Types Packs/Day Years [...] 9:00 AM EDT Office Visit [facility] MED & PED[facility] [address] [place] [address] Chato Thomason MD [address] [place], [place] 07/27/2025 1:30 PM EDT Office Visit [facility] ADULT DENTAL [address] [place], [place] [phone] Joe Nash DMD [address] [place], [place] 07/28/2025 11:00 AM EDT Clinical Support [facility] [address] [place], [place] [phone] Linda Pelaez, WALT [address] [place] [address] 09/12/2025 1:30 PM EST Telemedicine [facility] [address] [place] [address] Linda Pelaez, WALT [address] [place] [address] documented as of this encounter Visit Diagnoses Not on filedocumented in this encounter Care Teams Line Maintenance Relationship Specialty Start Date End Date Chato Thomason MD [address] [place] [address] PCP - General Internal Medicine 10/27/18 Kelsey Minaya Community Health Worker 06/08/2407/07 Eliane Metzger Chute TenderSpecial Education Educational Assistant 01/29/24 07/08/24 Mackenzie Roland Chute Tender 07/09/24 Angela Pozo Chute Tender 07/09/24 06/12/25 [facility] 06/12/23 Ezekiel Patricia Chute TenderSpecial Education Educational Assistant 06/13/25 documented as of this encounter
--- OUTSIDE RECORDS SUMMARY | 2025-06-30 11:51 | XMS_ITS | Encounter Summary ---
Author Organization [employer] Address 75 [facility] 7 [place] [address] Care Team Providers Care Director Corporate Compliance Name Role Phone Chato Thomason MD Primary Care Provider [phone] Reason for Visit * Reason Onset Date Comments Med Refill 09/13/2024 Encounter Details Date Type Department Care Team ([facility] st Contact Info) Description 09/13/2024 Telephone [facility] MEDICINE [address] [place] [address] Chato Thomason MD [address] [place] [address] Med Refill Social History Tobacco Use Types [...] immediate release tablet To be sent to: [id number] AT [facility] documented in this encounter Plan of Treatment Upcoming Encounters Date Type Department Care Team ([facility] Contact Info) Description 07/18/2025 9:00 AM EDT Office Visit [facility] MED & PEDS [address] [place] [address] Chato Thomason MD [address] [place] [address] 07/27/2025 1:30 PM EDT Office Visit [facility] ADULT DENTAL [address] [place] [address] Joe Nash DMD [address] [place] [address] 07/28/2025 11:00 AM EDT Clinical Support [facility] MED & PEDS [address] [place] [address] Linda Pelaez RN [address] [place] [address] 09/12/2025 1:30 PM EST Telemedicine [facility] MED & PEDS [address] [place] [address] Linda Pelaez RN [address] [place] [address] documented as of this encounter Visit Diagnoses Not on filedocumented in this encounter Additional Health Concerns Assessment Noted Time PHQ-9 Depression Total Score: 19 024 3:44 PM EDT documented as of this encounter Care Teams Director Corporate Compliance Relationship Specialty Start Date End Date Chato Thomason MD [address] [place] [address] PCP - General Internal Medicine 10/27/18 Mackenzie Roland Aquarium Specialist 07/09/24 Angela Pozo Aquarium Specialist 07/09/24 06/12/25 [facility] 06/12/23 Ezekiel Patricia Aquarium SpecialistTextile Designer 06/13/25 documented as of this encounter
--- OUTSIDE RECORDS SUMMARY | 2025-06-30 11:51 | XMS_ITS | Encounter Summary ---
Author Organization [employer] Address [address] [place] [address] 7 [place] [address] Care Team Providers Care Plastic Fabricator Name Role Phone Chato Thomason MD Primary Care Provider [phone] Reason for Visit * Reason Comments Med Refill Encounter Details Date Type Department Care Team ([facility] st Contact Info) Description 08/31/2024 Refill [facility] MED & PEDS [address] [place], [place] [phone] Chato Thmoason MD [address] [place] [address] Squamous cell carcinoma of larynx (CMS/HCC) (Primary [...] 9:00 AM EDT Office Visit [facility] MED & PEDS [address] [place] [address] Chato Thomason MD [address] [place] [address] 07/27/2025 1:30 PM EDT Office Visit [facility] ADULT DENTAL [address] [place] [address] Joe Nash DMD [address] [place] [address] 07/28/2025 11:00 AM EDT Clinical Support [facility] MED & PEDS [address] [place] [address] Linda Pelaez RN [address] [place] [address] 09/12/2025 1:30 PM EST Telemedicine [facility] MED & PEDS [address] [place] [address] Linda Pelaez RN [address] [place] [address] documented as of this encounter Visit Diagnoses Diagnosis 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, unspecified site Other insomnia Anxiety Anxiety state, unspecified History of laryngectomy Other postprocedural status documented in this encounter Additional Health Concerns Assessment Noted Time PHQ-9 Depression Total Score: 19 024 3:44 PM EDT documented as of this encounter Care Teams Plastic Fabricator Relationship Specialty Start Date End Date Chato Thomason MD [address] [place] [address] PCP - General Internal Medicine 10/27/18 Mackenzie Roland Passenger Tire Inspector 07/09/24 Angela Pozo Passenger Tire Inspector 07/09/24 06/12/25 [facility] 06/12/23 Ezekiel Patricia Passenger Tire InspectorSvp 06/13/25 documented as of this encounter
--- OUTSIDE RECORDS SUMMARY | 2025-06-30 11:51 | XMS_ITS | Encounter Summary ---
Author Organization [employer] Address 75 [facility] 7 [place] [address] Care Team Providers Care Plastic Dolls Mold Filler Name Role Phone Chato Thomason MD Primary Care Provider [phone] Kelsey Minaya Unavailable Reason for Visit * Reason Onset Date Comments Referral 03/27/2023 Encounter Details Date Type Department Care Team ([facility] st Contact Info) Description 03/27/2023 Telephone [facility] MEDICINE [address] [place] [address] Chato Thomason MD [address] [place] [address] Referral Social History Tobacco Use Types Packs/Day [...] - 03/27/2023 2:43 PM EDT Tc from [facility] requesting a referral. Date: 03/31/2023 Time: 10:15 AM Location: [address] [place] [address] Specialty: [facility] Hematology Oncology NPI Facility: [id number] Department: [id number] DX: Squamous cell Carcinoma of Epiglottis Phone #: [phone] Fax #: [phone] documented in this encounter Plan of Treatment Upcoming Encounters Date Type Department Care Team (Late st Contact Info) Description 07/18/2025 9:00 AM EDT Office Visit [facility] MED [facility] PEDS [address] [place] [address] Chato Thomason MD [address] [place] [address] 07/27/2025 1:30 PM EDT Office Visit [facility] ADULT DENTAL [address] [place] [address] Joe Nash DMD [address] [place] [address] 07/28/2025 11:00 AM EDT Clinical Support [facility] MED [facility] PED[facility] [address] [place] [address] Linda Pelaez RN [address] [place] [address] 09/12/2025 1:30 PM EST Telemedicine [facility] MED [facility] PEDS [address] [place] [address] Linda Pelaez RN [address] [place] [address] documented as of this encounter Visit Diagnoses Not on filedocumented in this encounter Care Teams Plastic Dolls Mold Filler Relationship Specialty Start Date End Date Chato Thomason MD [address] [place] [address] PCP - General Internal Medicine 10/27/18 Kelsey Minaya Community Health Worker 06/08/2407/07 Eliane Metzger Child AttendantInvestigative Analyst 01/29/24 07/08/24 Mackenzie Roland Child Attendant 07/09/24 Angela Pozo Child Attendant 07/09/24 06/12/25 [facility] 06/12/23 Ezekiel Patricia Child AttendantInvestigative Analyst 06/13/25 documented as of this encounter
--- OUTSIDE RECORDS SUMMARY | 2025-06-30 11:51 | XMS_ITS | Encounter Summary ---
Author Organization [employer] Address 75 [facility] 7 [place] [address] Care Team Providers Care Airport Skilled Maintenance Supervisor Name Role Phone Chato Thomason MD Primary Care Provider [phone] Reason for Visit * Reason Onset Date Comments Medication Question 05/02/2025 Encounter Details Date Type Department Care Team ([facility] st Contact Info) Description 05/02/2025 Telephone [facility] MEDICINE [address] [place] [address] Chato Thomason MD [address] [place] [address] Medication Question Social History Tobacco Use Types [...] encounter Miscellaneous Notes * Telephone Encounter - Juliet Todd - 05/02/2025 8:06 AM EDT Tc from pt Mom requesting medication below to be change from liquid to pill, if possible. Mom stated is very hard to give pt medication. - famotidine (Pepcid) 40 MG/5ML suspension documented in this encounter Plan of Treatment Upcoming Encounters Date Type Department Care Team (Late st Contact Info) Description 07/18/2025 9:00 AM EDT Office Visit [facility] MED & PEDS [address] [place] [address] Chato Thomason MD [address] [place] [address] 07/27/2025 1:30 PM EDT Office Visit [facility] ADULT DENTAL [address] [place] [address] Joe Nash DMD [address] [place] [address] 07/28/2025 11:00 AM EDT Clinical Support [facility] MED [facility] PEDS [address] [place] [address] Linda Pelaez RN [address] [place] [address] 09/12/2025 1:30 PM EST Telemedicine [facility] MED & PEDS [address] [place] [address] Linda Pelaez RN [address] [place] [address] documented as of this encounter Visit Diagnoses Not on filedocumented in this encounter Additional Health Concerns Assessment Noted Time PHQ-9 Depression Total Score: 19 024 3:44 PM EDT documented as of this encounter Care Teams Airport Skilled Maintenance Supervisor Relationship Specialty Start Date End Date Chato Thomason MD [address] [place] [address] PCP - General Internal Medicine 10/27/18 Mackenzie Roland Bait Digger 07/09/24 Angela Pozo Bait Digger 07/09/24 06/12/25 [facility] 06/12/23 Ezekiel Patricia Bait DiggerProtection Engineer 06/13/25 documented as of this encounter
--- OUTSIDE RECORDS SUMMARY | 2025-06-30 11:51 | XMS_ITS | Encounter Summary ---
Author Organization [email or web address] Address [address] [facility] 7t [place] [address] Care Team Providers Care Orchid Transplanter Name Role Phone Chato Thomason MD Primary Care Provider [phone] Encounter Details Date Type Department Care Team ([facility] st Contact Info) Description 10/04/2024 Orders Only [facility] CHC MED & PEDS [address] [place], [place] [phone] ProviderColleen MD Social History Tobacco Use Types [...] 9:00 AM EDT Office Visit [facility] MED & PEDS [address] [place] [address] Chato Thomason MD 505 [place] [address] 07/27/2025 1:30 PM EDT Office Visit [facility] ADULT DENTAL [address] [place] [address] Joe Nash DMD [address] [place] [address] 07/28/2025 11:00 AM EDT Clinical Support [facility] MED & PEDS [address] [place] [address] Linda Pelaez RN 505 [place] [address] 09/12/2025 1:30 PM EST Telemedicine [facility] MED & PEDS [address] [place] [address] Linda Pelaez RN 505 [place] [address] documented as of this encounter Procedures Procedure Name Priority Date/Time Associated Diagnosis Comments SURGICAL PATHOLOGY Routine 09/29/2024 10:44 AM EST documented in this encounter Results * Surgical Pathology (09/29/2024 10:44 AM EST) us Historical Provider LAB PATHOLOGY ORDERABLES Final Result documented in this encounter Visit Diagnoses Not on filedocumented in this encounter Additional Health Concerns Assessment Noted Time PHQ-9 Depression Total Score: 19 024 3:44 PM EDT documented as of this encounter Care Teams Orchid Transplanter Relationship Specialty Start Date End Date Chato Thomason MD [address] [place] [address] PCP - General Internal Medicine 10/27/18 Mackenzie Roland Woodwinds Teacher 07/09/24 Angela Pozo Woodwinds Teacher 07/09/24 06/12/25 [facility] 06/12/23 Ezekiel Patricia Woodwinds TeacherVoltmeter Operator 06/13/25 documented as of this encounter
--- OUTSIDE RECORDS SUMMARY | 2025-06-30 11:51 | XMS_ITS | Encounter Summary ---
Author Organization [employer] Address [address] [place] [address] Care Team Providers Care Petrology Teacher Name Role Phone Chato Thomason MD Primary Care Provider [phone] Reason for Referral * Consultation (Routine) - Closed Specialty Diagnoses / Procedures Referred By Maryana singh Referred To Contact Ophthalmology Diagnoses Primary hypertension Chato Thomason MD 505 [place] [address] Phone: tel: fax: [facility] [place] [address] [place] [address] Phone: tel:[phone] fax: Referral ID Status Reason Start Date Expiration Date V isits Requested Visits Authorized [id number] Closed Specialty Services Required 10/01/2024 10/01/2025 1 1 * Consultation (Urgent) - Closed Specialty Diagnoses / Procedures Referred By Maryana singh Referred To Contact Pharmacy Diagnoses Spongiotic dermatitis Chronic bronchitis, unspecified chronic bronchitis type (CMS/HCC) Hypercholesterolemia Primary hypertension Chato Thomason MD [address] [place] [address] Phone: tel: fax: Referral ID Status Reason Start Date Expiration Date V isits Requested Visits Authorized [id number] Closed Continuity of Care 10/01/2024 10/01/2025 6 6 Encounter Details Date Type Department Care Team (Late st Contact Info) Description 10/01/2024 Orders Only [facility] CHC MED & PEDS [address] [place] [address] Chato Thomason MD [address] [place] [address] Spongiotic dermatitis (Primary Dx); Chronic bronchitis, unspecified [...] Upcoming Encounters Date Type Department Care Team ([facility] st Contact Info) Description 07/18/2025 9:00 AM EDT Office Visit [facility] MED & PEDS [address] [place] [address] Chato Thomason MD [address] [place] [address] 07/27/2025 1:30 PM EDT Office Visit [facility] ADULT DENTAL [address] [place] [address] Joe Nash DMD [address] [place] [address] 07/28/2025 11:00 AM EDT Clinical Support [facility] MED & PEDS [address] [place] [address] Linda Pelaez RN 505 [place] [address] 09/12/2025 1:30 PM EST Telemedicine [facility] MED & PEDS [address] [place] [address] Linda Pelaez, WALT 505 [place] [address] Scheduled Referrals Name Type Priority Associated Diagnoses [...] documented as of this encounter Care Teams Petrology Teacher Relationship Specialty Start Date End Date Chato Thomason MD [address] [place] [address] PCP - General Internal Medicine 10/27/18 Mackenzie Roland Candle Molder 07/09/24 Angela Pozo Candle Molder 07/09/24 06/12/25 [facility] 06/12/23 Ezekiel Patricia Candle MolderPainter Ordnance 06/13/25 documented as of this encounter
--- OUTSIDE RECORDS SUMMARY | 2025-06-30 11:52 | XMS_ITS | Encounter Summary ---
Author Organization [employer] Address 75 [facility] 7 [place] [address] Care Team Providers Care Counter Former Name Role Phone Chato Thomason MD Primary Care Provider [phone] Kelsey Minaya Unavailable Reason for Visit * Reason Onset Date Comments Hospital Follow-up 07/05/2024 Encounter Details Date Type Department Care Team ([facility] st Contact Info) Description 07/05/2024 Telephone [facility] MEDICINE [address] [place] [address] Chato Thomason MD [address] [place], [place] [phone] Hospital Follow-up Social History Tobacco Use Types [...] the ED. His personal phone number is [phone]. We agreed to have him contact one of our team nurseif he has a concern about Mr Lawrence Childers and to update us at [facility] regularly on Friday on what Mr Lawrence Childers needs are. Bo does think that Mr Lawrence Childers would be better taken care of at a [place] given the level of care he needs. * Telephone Encounter - Art Pena - 07/06/2024 12:12 PM EDT Tc from mackenzie with [facility] would like to PCP that they called crisis due to having suicidal ideation. Advised will leave message asd FYI. Please see previous message. Please contact at [phone] * Telephone Encounter - Ronaldo Larios - 07/05/2024 8:03 AM EDT Tc from pt requesting a HDF appt. Hospital: [facility] Date of admission: 06/26 Discharge date: 07/02 [...] [facility] [address] [place] [address] Chato Thomason MD [address] [place] [address] 07/27/2025 1:30 PM EDT Office Visit [facility] AD[facility]AL 505 [place] [address] Joe Nash DMD 505 [place] [address] 07/28/2025 11:00 AM EDT Clinical Support [facility] MED & PEDS [address] [place] [address] Linda Pelaez, WALT [address] [place] [address] 09/12/2025 1:30 PM EST Telemedicine [facility] MED & PEDS [address] [place], [place] [phone] Linda Pelaez, WALT [address] [place], [place] [phone] documented as of this encounter Visit Diagnoses Not on filedocumented in this encounter Care Teams Counter Former Relationship Specialty Start Date End Date Chato Thomason MD 505 [place] [address] PCP - General Internal Medicine 10/27/18 Kelsey Minaya Community Health Worker 06/08/2407/07 Eliane Metzger Logging ContractorSales Warehouse Driver 01/29/24 07/08/24 Mackenzie Roland Logging Contractor 07/09/24 Angela Pozo Logging Contractor 07/09/24 06/12/25 [facility] 06/12/23 Ezekiel Patricia Logging ContractorSales Warehouse Driver 06/13/25 documented as of this encounter
--- OUTSIDE RECORDS SUMMARY | 2025-06-30 11:52 | XMS_ITS | Encounter Summary ---
Author Organization [employer] Address [address] [facility] 7 [place] [address] Care Team Providers Care Wash Tank Tender Name Role Phone Chato Thomason MD Primary Care Provider [phone] Reason for Visit * Reason Onset Date Comments Med Refill 01/10/2025 Encounter Details Date Type Department Care Team ([facility] st Contact Info) Description 01/10/2025 Telephone [facility] MEDICINE [address] [place] [address] Chato Thomason MD 505 [place] [address] Med Refill Social History Tobacco Use Types [...] immediate release tablet To be sent to: [facility] - [place], [place] - [address] [place] [address] documented in this encounter Plan of Treatment Upcoming Encounters Date Type Department Care Team ([facility] st Contact Info) Description 07/18/2025 9:00 AM EDT Office Visit [facility] MED & PEDS [address] [place] [address] Chato Thomason MD 505 [place] [address] 07/27/2025 1:30 PM EDT Office Visit [facility] ADULT DENTAL [address] [place] [address] Joe Nash DMD [address] [place] [address] 07/28/2025 11:00 AM EDT Clinical Support [facility] MED & PEDS [address] [place] [address] Linda Pelaez RN 505 [place] [address] 09/12/2025 1:30 PM EST Telemedicine [facility] MED & PEDS [address] [place] [address] Linda Pelaez RN [address] [place] [address] documented as of this encounter Visit Diagnoses Not on filedocumented in this encounter Additional Health Concerns Assessment Noted Time PHQ-9 Depression Total Score: 19 024 3:44 PM EDT documented as of this encounter Care Teams Wash Tank Tender Relationship Specialty Start Date End Date Chato Thomason MD 505 [place] [address] PCP - General Internal Medicine 10/27/18 Mackenzie Roland Continuous Loft Operator 07/09/24 Angela Pozo Continuous Loft Operator 07/09/24 06/12/25 [facility] 06/12/23 Ezekiel Patricia Continuous Loft OperatorAssistant Guest Services Manager 06/13/25 documented as of this encounter
--- OUTSIDE RECORDS SUMMARY | 2025-06-30 11:52 | XMS_ITS | Encounter Summary ---
Author Organization [employer] Address 75 [facility] 7 [place] [address] Care Team Providers Care Cold Meat Chef Name Role Phone Chato Thomason MD Primary Care Provider [phone] Reason for Visit * Reason Onset Date Comments Med Refill 04/11/2025 Encounter Details Date Type Department Care Team ([facility] st Contact Info) Description 04/11/2025 Telephone [facility] MEDICINE [address] [place] [address] Chato Thomason MD 505 [place] [address] Med Refill Social History Tobacco Use Types [...] encounter Miscellaneous Notes * Telephone Encounter - Belkis Garcia LPN - 04/11/2025 8:10 AM EDT Medication was sent to [facility] on 03/14/25 #30 with 1 refill. * Telephone Encounter - Barney Macdonald - 04/11/2025 8:05 AM EDT TC from pt requesting medication refill. Medications needing refill : traZODone (Desyrel) 150 MG tablet To be sent to: [facility] - [place] - [address] [facility] documented in this encounter Plan of Treatment Upcoming Encounters Date Type Department Care Team (Late st Contact Info) Description 07/18/2025 9:00 AM EDT Office Visit [facility] MED & PEDS [address] [facility] [address] Chato Thomason MD [address] [place] [address] 07/27/2025 1:30 PM EDT Office Visit [facility] ADULT DENTAL [address] [place] [address] Joe Nash, DMD 505 [place], [place] 07/28/2025 11:00 AM EDT Clinical Support [facility] MED & PEDS [address] [place] [address] Linda Pelaez RN [address] [place], [place] 09/12/2025 1:30 PM EST Telemedicine [facility] MED & PEDS [address] [place] [address] Linda Pelaez RN 505 [place] [address] documented as of this encounter Visit Diagnoses Not on filedocumented in this encounter Additional Health Concerns Assessment Noted Time PHQ-9 Depression Total Score: 19 024 3:44 PM EDT documented as of this encounter Care Teams Cold Meat Chef Relationship Specialty Start Date End Date Chato Thomason MD [address] [place] [address] PCP - General Internal Medicine 10/27/18 Mackenzie Roland Solar Installation Foreman 07/09/24 Angela Pozo Solar Installation Foreman 07/09/24 06/12/25 [facility] 06/12/23 Ezekiel Patricia Solar Installation ForemanOperator Weapon Locating Radar 06/13/25 documented as of this encounter
--- OUTSIDE RECORDS SUMMARY | 2025-06-30 11:52 | XMS_ITS | Encounter Summary ---
Author Organization [employer] Address 75 [facility] 7 [place] [address] Care Team Providers Care Assembly Lead Person Name Role Phone Chato Thomason MD Primary Care Provider [phone] Reason for Visit * Reason Onset Date Comments Med Refill 04/06/2025 Encounter Details Date Type Department Care Team ([facility] st Contact Info) Description 04/06/2025 Telephone [facility] MEDICINE [address] [place] [address] Chato Thomason MD [address] [place] [address] Med Refill Social History Tobacco Use Types [...] * Telephone Encounter - Familia Preston - 04/06/2025 10:46 AM EDT TC from pt requesting medication refill. Medications needing refill: oxyCODONE (Roxicodone) 15 MG immediate release tablet To be sent to: [facility] - [place], [place] - [address] [place] [address] documented in this encounter Plan of Treatment Upcoming Encounters Date Type Department Care Team ([facility] st Contact Info) Description 07/18/2025 9:00 AM EDT Office Visit [facility] MED & PEDS [address] [place] [address] Chato Thomason MD [address] [place] [address] 07/27/2025 1:30 PM EDT Office Visit [facility] ADULT DENTAL [address] [place] [address] Joe Nash DMD [address] [place] [address] 07/28/2025 11:00 AM EDT Clinical Support [facility] MED & PEDS [address] [place] [address] Linda Pelaez RN 505 [place] [address] 09/12/2025 1:30 PM EST Telemedicine [facility] MED & PEDS [address] [place] [address] Linda Pelaez RN 505 [place] [address] documented as of this encounter Visit Diagnoses Not on filedocumented in this encounter Additional Health Concerns Assessment Noted Time PHQ-9 Depression Total Score: 19 024 3:44 PM EDT documented as of this encounter Care Teams Assembly Lead Person Relationship Specialty Start Date End Date Chato Thomason MD [address] [place] [address] PCP - General Internal Medicine 10/27/18 Mackenzie Roland Canvas Marker 07/09/24 Angela Pozo Canvas Marker 07/09/24 06/12/25 [facility] 06/12/23 Ezekiel Patricia Canvas MarkerSchedule Announcer 06/13/25 documented as of this encounter
--- OUTSIDE RECORDS SUMMARY | 2025-06-30 11:52 | XMS_ITS | Encounter Summary ---
Author Organization [employer] Address [address] [facility] 7t [place] [address] Care Team Providers Care Semi Truck Driver Name Role Phone Chato Thomason MD Primary Care Provider [phone] Kelsey Minaya Unavailable Encounter Details Date Type Department Care Team ([facility] st Contact Info) Description 03/30/2024 Orders Only [facility] CHC MED & PEDS [address] [place], [place] [phone] ProviderColleen MD Social History Tobacco Use Types [...] Description 07/18/2025 9:00 AM EDT Office Visit [facility] MED & PEDS [address] [place] [address] Chato Thomason MD 505 [place] [address] 07/27/2025 1:30 PM EDT Office Visit [facility] ADULT DENTAL [address] [place] [address] Joe Nash DMD [address] [place] [address] 07/28/2025 11:00 AM EDT Clinical Support [facility] MED & PEDS [address] [place] [address] Linda Pelaez, WALT [address] [place] [address] 09/12/2025 1:30 PM EST Telemedicine [facility] MED & PEDS [address] [place] [address] Linda Pelaez, WALT [address] [place] [address] documented as of this encounter Procedures Procedure Name Priority Date/Time Associated Diagnosis Comments SURGICAL PATHOLOGY Routine 03/25/2024 8:43 AM EDT documented in this encounter Results * Surgical Pathology (03/25/2024 8:43 AM EDT) us Historical Provider LAB PATHOLOGY ORDERABLES Final Result documented in this encounter Visit Diagnoses Not on filedocumented in this encounter Care Teams Semi Truck Driver Relationship Specialty Start Date End Date Chato Thomason MD [address] [place] [address] PCP - General Internal Medicine 10/27/18 Kelsey Minaya Community Health Worker 06/08/2407/07 Eliane Metzger Pig CasterBookstore Manager 01/29/24 07/08/24 Mackenzie Roland Pig Caster 07/09/24 Angela Pozo Pig Caster 07/09/24 06/12/25 [facility] 06/12/23 Ezekiel Patricia Pig CasterBookstore Manager 06/13/25 documented as of this encounter
--- OUTSIDE RECORDS SUMMARY | 2025-06-30 11:52 | XMS_ITS | Encounter Summary ---
Author Organization [employer] Address [address] [place] [address] Care Team Providers Care Manufacturing Development Engineer Name Role Phone Chato Thomason MD Primary Care Provider [phone] Reason for Referral * Consultation (Routine) - Closed Specialty Diagnoses / Procedures Referred By Maryana singh Referred To Contact Physical Therapy Diagnoses Lymphatic edema Chato Thomason MD [address] [place] [address] Phone: tel: fax: Referral ID Status Reason Start Date Expiration Date V isits Requested Visits Authorized [id number] Closed Specialty Services Required 03/16/2025 03/16/2026 1 1 * Consultation (Routine) - Authorized Specialty Diagnoses / Procedures Referred By Maryana singh Referred To Contact Gastroenterology Diagnoses Epigastric pain Chato Thomason MD [address] [place] [address] Phone: tel: fax: Yomi Hernandes MD [address] [place] [address] Phone: tel: fax: Referral ID Status Reason Start Date Expiration Date Visits Requested Visits Authorized [id number] Authorized Specialty Services Required 03/04/2025 03/04/2026 1 1 * Consultation (Routine) - Closed Specialty Diagnoses / Procedures Referred By Maryana singh Referred To Contact Occupational Therapy Diagnoses Lymphatic edema Chato Thomason MD [address] [place] [address] Phone: tel: fax: Referral ID Status Reason Start Date Expiration Date V isits Requested Visits Authorized [id number] Closed Specialty Services Required 03/04/2025 03/04/2026 1 1 Encounter Details Date Type Department Care Team (Late st Contact Info) Description 03/04/2025 Orders Only [facility] CHC MED & PEDS [address] [place] [address] Chato Thomason MD [address] [place] [address] Lymphatic edema (Primary Dx); Epigastric pain Social [...] 9:00 AM EDT Office Visit [facility] MED & PEDS [address] [place] [address] Chato Thomason MD [address] [place] [address] 07/27/2025 1:30 PM EDT Office Visit [facility] ADULT DENTAL [address] [place] [address] Joe Nash DMD [address] [place] [address] 07/28/2025 11:00 AM EDT Clinical Support [facility] MED & PEDS [address] [place] [address] Linda Pelaez RN [address] [place] [address] 09/12/2025 1:30 PM EST Telemedicine [facility] MED & PEDS [address] [place] [address] Linda Pelaez RN [address] [place] [address] Scheduled Referrals Name Type Priority Associated Diagnoses Order Schedule Referral to Gastroenterology Outpatient Referral Routine Epigastric pain Expected: 03/04/2025 (Approximate), Expires: 03/04/2026 Referral to Physical Therapy Outpatient Referral Routine Lymphatic edema Expected: 03/16/2025 (Approximate), Expires: 03/16/2026 documented as of this encounter Procedures Procedure Name Priority Date/Time Associated Diagnosis Comments AMB REFERRAL TO OCCUPATIONAL THERAPY Routine 04/28/2025 Lymphatic edema documented in this encounter Results * Referral to Occupational Therapy (04/28/2025) Chato Thomason MD OUTPATIENT REFERRAL ORDERAB LES Final Result documented in this encounter Visit Diagnoses Diagnosis Lymphatic edema- Primary Other noninfectious lymphedema Epigastric pain Abdominal pain, epigastric documented in this encounter Additional Health Concerns Assessment Noted Time PHQ-9 Depression Total Score: 19 024 3:44 PM EDT documented as of this encounter Care Teams Manufacturing Development Engineer Relationship Specialty Start Date End Date Chato Thomason MD [address] [place] [address] PCP - General Internal Medicine 10/27/18 Mackenzie Roland Gravity Prospector 07/09/24 Angela Pozo Gravity Prospector 07/09/24 06/12/25 [facility] 06/12/23 Ezekiel Patricia Gravity ProspectorLoss Prevention Research Engineer 06/13/25 documented as of this encounter
--- OUTSIDE RECORDS SUMMARY | 2025-06-30 11:52 | XMS_ITS | Encounter Summary ---
Author Organization [employer] Address [address] [place] [address] Care Team Providers Care Radiation Control Technician Name Role Phone Chato Thomason MD Primary Care Provider [phone] Reason for Referral * Consultation (Routine) - Closed Specialty Diagnoses / Procedures Referred By Contac t Referred To Contact Pain Medicine Diagnoses Squamous cell carcinoma of larynx (CMS/HCC) Dysphagia, unspecified type Chato Thomason MD [address] [place] [address] Phone: tel: fax: Moe Luna MD [address] [place] [address] [place] [address] Phone: tel: fax: Referral ID Status Reason Start Date Expiration Date V isits Requested Visits Authorized [id number] Closed Specialty Services Required 12/20/2024 12/20/2025 1 1 Encounter Details Date Type Department Care Team (Late st Contact Info) Description 12/20/2024 Orders Only [facility] MEDICINE [address] [place] [address] Chato Thomason MD [address] [place], [place] [phone] Squamous cell carcinoma of larynx (CMS/HCC) (Primary [...] ([facility] st Contact Info) Description 07/18/2025 9:00 AM EDT Office Visit [facility] CHC MED & PEDS [address] [place], [place] [phone] Chato Thomason MD [address] [place], [place] [phone] 07/27/2025 1:30 PM EDT Office Visit [facility] ADULT DENTAL [address] [place] [address] Joe Nash, DMD [address] [place] [address] 07/28/2025 11:00 AM EDT Clinical Support [facility] MED & PEDS [address] [place] [address] Linda Pelaez, WALT [address] [place] [address] 09/12/2025 1:30 PM EST Telemedicine [facility] MED & PEDS [address] [place] [address] Linda Pelaez RN [address] [place] [address] Scheduled Referrals Name Type Priority Associated Diagnoses [...] documented as of this encounter Care Teams Radiation Control Technician Relationship Specialty Start Date End Date Chato Thomason MD [address] [place] [address] PCP - General Internal Medicine 10/27/18 Mackenzie Roland Cardiac Cath Lab Manager 07/09/24 Angela Pozo Cardiac Cath Lab Manager 07/09/24 06/12/25 [facility] 06/12/23 Ezekiel Patricia Cardiac Cath Lab ManagerDraw Tender 06/13/25 documented as of this encounter
--- OUTSIDE RECORDS SUMMARY | 2025-06-30 11:52 | XMS_ITS | Encounter Summary ---
Author Organization [employer] Address [address] [place] [address] Care Team Providers Care Collar Pointer Name Role Phone Chato Thomason MD Primary Care Provider [phone] Kelsey Minaya Unavailable Reason for Referral * Consultation (Routine) - Closed Specialty Diagnoses / Procedures Referred By Maryana singh Referred To Contact Podiatry Diagnoses Nail problem Chato Thomason MD [address] [place] [address] Phone: tel: fax: Referral ID Status Reason Start Date Expiration Date V isits Requested Visits Authorized [id number] Closed Specialty Services Required 06/11/2024 06/11/2025 1 1 Encounter Details Date Type Department Care Team ([facility] Contact Info) Description 06/11/2024 Orders Only [facility] CHC MED & PEDS [address] [place] [address] Chato Thomason MD [address] [place], [place] [phone] Nail problem (Primary Dx); Anxiety Social History [...] Description 07/18/2025 9:00 AM EDT Office Visit [facility] MED & PEDS [address] [place] [address] Chato Thomason MD [address] [place] [address] 07/27/2025 1:30 PM EDT Office Visit [facility] ADULT DENTAL [address] [place] [address] Joe Nash DMD [address] [place] [address] 07/28/2025 11:00 AM EDT Clinical Support [facility] MED & PEDS [address] [place] [address] Linda Pelaez, WALT 505 [place] [address] 09/12/2025 1:30 PM EST Telemedicine [facility] MED & PEDS [address] [place] [address] Linda Pelaez, RN 505 [place] [address] Scheduled Referrals Name Type Priority Associated Diagnoses Orde r Schedule Referral to Podiatry Outpatient Referral Routine Nail problem Expected: 06/11/2024 (Approximate), Expires: 06/11/2025 documented as of this encounter Visit Diagnoses Diagnosis Nail problem- Primary Other specified disease of nail Anxiety Anxiety state, unspecified documented in this encounter Care Teams Collar Pointer Relationship Specialty Start Date End Date Chato Thomason MD [address] [place] [address] PCP - General Internal Medicine 10/27/18 Kelsey Minaya Community Health Worker 06/08/2407/07 Eliane Metzger Tester Armature Or FieldsAdvanced Registered Nurse 01/29/24 07/08/24 Mackenzie Roland Tester Armature Or Fields 07/09/24 Angela Pozo Tester Armature Or Fields 07/09/24 06/12/25 [facility] 06/12/23 Ezekiel Patricia Tester Armature Or FieldsAdvanced Registered Nurse 06/13/25 documented as of this encounter
--- OUTSIDE RECORDS SUMMARY | 2025-06-30 11:52 | XMS_ITS | Encounter Summary ---
Author Organization [employer] Address [address] [facility] 7 [place] [address] Care Team Providers Care Counter Tender Name Role Phone Chato Thomason MD Primary Care Provider [phone] Kelsey Minaya Unavailable Encounter Details Date Type Department Care Team ([facility] st Contact Info) Description 08/13/2023 Orders Only [facility] CHC MED & PEDS [address] [place], [place] [phone] Chato Thomason MD [address] [place] [address] Spongiotic dermatitis (Primary Dx) Social History Tobacco [...] Upcoming Encounters Date Type Department Care Team ([facility] st Contact Info) Description 07/18/2025 9:00 AM EDT Office Visit [facility] MED & PEDS [address] [place] [address] Chato Thomason MD [address] [place], [place] 07/27/2025 1:30 PM EDT Office Visit [facility] ADULT DENTAL [address] [place] [address] Joe Nash DMD [address] [place], [place] 07/28/2025 11:00 AM EDT Clinical Support [facility] MED & PEDS [address] [place] [address] Linda Pelaez RN [address] [place], [place] 09/12/2025 1:30 PM EST Telemedicine [facility] MED & PEDS [address] [place] [address] Linda Pelaez RN [address] [place], [place] documented as of this encounter Visit Diagnoses Diagnosis Spongiotic dermatitis- Primary Contact dermatitis and other eczema, due to unspecified cause documented in this encounter Care Teams Counter Tender Relationship Specialty Start Date End Date Chato Thomason MD [address] [place] [address] PCP - General Internal Medicine 10/27/18 Kelsey Minaya Community Health Worker 06/08/2407/07 Eliane Metzger Block InspectorFloor Framer 01/29/24 07/08/24 Mackenzie Roland Block Inspector 07/09/24 Angela Pozo Block Inspector 07/09/24 06/12/25 [facility] 06/12/23 Ezekiel Patricia Block InspectorFloor Framer 06/13/25 documented as of this encounter
--- OUTSIDE RECORDS SUMMARY | 2025-06-30 11:52 | XMS_ITS | Encounter Summary ---
Author Organization [employer] Address 75 [facility] 7t [place] [address] Care Team Providers Care Poker Supervisor Name Role Phone Chato Thomason MD Primary Care Provider [phone] Kelsey Minaya Unavailable Encounter Details Date Type Department Care Team (Late st Contact Info) Description 02/26/2024 Orders Only [facility] [address] [place] [address] ProviderColleen MD Social History Tobacco Use Types [...] Description 07/18/2025 9:00 AM EDT Office Visit [facility] MED & PEDS [address] [place] [address] Chato Thomason MD 505 [place] [address] 07/27/2025 1:30 PM EDT Office Visit [facility] ADULT DENTAL [address] [place] [address] Joe Nash DMD [address] [place] [address] 07/28/2025 11:00 AM EDT Clinical Support [facility] MED & PEDS [address] [place] [address] Linda Pelaez RN 505 [place] [address] 09/12/2025 1:30 PM EST Telemedicine [facility] MED & PEDS [address] [place] [address] Linda Pelaez RN 505 [place] [address] documented as of this encounter Procedures Procedure Name Priority Date/Time Associated Diagnosis Comments PATHOLOGY REPORT (HISTOPATHOLOGY) Routine 02/24/2024 3:36 PM EDT documented in this encounter Results * Pathology Report (02/24/2024 3:36 PM EDT) Tissue Historical Provider LAB PATHOLOGY ORDERABLES Final Result documented in this encounter Visit Diagnoses Not on filedocumented in this encounter Care Teams Poker Supervisor Relationship Specialty Start Date End Date Chato Thomason MD [address] [place] [address] [place]NE [place]abtree [address] PCP - General Internal Medicine 10/27/18 Kelsey Minaya Community Health Worker 06/08/2407/07 Eliane Metzger OtaAnalytical Lab Technician 01/29/24 07/08/24 Mackenzie Roland Ota 07/09/24 Angela Pozo Ota 07/09/24 06/12/25 [facility] 06/12/23 Ezekiel Patricia OtaAnalytical Lab Technician 06/13/25 documented as of this encounter
--- OUTSIDE RECORDS SUMMARY | 2025-06-30 11:52 | XMS_ITS | Encounter Summary ---
Author Organization [employer] Address [address] [facility] 7 [place] [address] Care Team Providers Care Swing Type Lathe Operator Name Role Phone Chato Thomason MD Primary Care Provider [phone] Reason for Visit * Reason Onset Date Comments Call Back Request 05/30/2025 Encounter Details Date Type Department Care Team ([facility] st Contact Info) Description 05/30/2025 Telephone [facility] MEDICINE [address] [place] [address] Chato Thomason MD 505 [place] [address] Call Back Request Social History Tobacco Use [...] Telephone Encounter - Brittany Mendez RN - 06/01/2025 9:55 AM EDT Angelica (mom) called and stated there was suppose to be a home health referral placed to come help patient with ADLs in the home. Angelica stated she is not in good health and she can no longer take care of him like she has been and is requesting help. Will route this message to provider for review and recommendations. * Telephone Encounter - Barney Macdonald - 06/01/2025 8:05 AM EDT Tc from pt mom requesting a call to discuss prior message. Contact pt mom at [phone] * Telephone Encounter - Familia Preston - 05/30/2025 8:38 AM EDT Tc from mom requesting call back stating they received a letter regarding home health aide but mom and pt are unsure on what agency will be providing services. They're also requesting guidance on howthe initial process would work. Please contact mom at [phone]. documented in this encounter Plan of Treatment Upcoming Encounters Date Type Department Care Team ([facility] st Contact Info) Description 07/18/2025 9:00 AM EDT Office Visit [facility] MED & PEDS [address] [place] [address] Chato Thomason MD 505 [place] [address] 07/27/2025 1:30 PM EDT Office Visit [facility] ADULT DENTAL [address] [place] [address] Joe Nash DMD 505 [place] [address] 07/28/2025 11:00 AM EDT Clinical Support [facility] MED & PEDS 505 [place] [address] Linda Pelaez, WALT 505 [place] [address] 09/12/2025 1:30 PM EST Telemedicine [facility] MED & PEDS [address] [place] [address] Linda Pelaez, WALT [address] [place] [address] documented as of this encounter Visit Diagnoses Not on filedocumented in this encounter Additional Health Concerns Assessment Noted Time PHQ-9 Depression Total Score: 19 024 3:44 PM EDT documented as of this encounter Care Teams Swing Type Lathe Operator Relationship Specialty Start Date End Date Chato Thomason MD [address] [place] [address] PCP - General Internal Medicine 10/27/18 Mackenzie Roland Employee Services Manager 07/09/24 Angela Pozo Employee Services Manager 07/09/24 06/12/25 [facility] 06/12/23 Ezekiel Patricia Employee Services ManagerBridge Gang Worker 06/13/25 documented as of this encounter
--- OUTSIDE RECORDS SUMMARY | 2025-06-30 11:52 | XMS_ITS | Encounter Summary ---
Author Organization [employer] Address 75 [facility] 7 [place] [address] Care Team Providers Care Executive Admin Name Role Phone Chato Thomason MD Primary Care Provider [phone] Reason for Visit * Reason Onset Date Comments Med Refill 04/04/2025 Encounter Details Date Type Department Care Team ([facility] st Contact Info) Description 04/04/2025 Telephone [facility] MEDICINE [address] [place] [address] Chato Thomason MD [address] [place] [address] Med Refill Social History Tobacco Use Types [...] * Telephone Encounter - Lupe Lopez - 04/04/2025 8:04 AM EDT TC from pt requesting medication refill. Medications needing refill : oxyCODONE (Roxicodone) 15 MG immediate release tablet To be sent to: [facility] documented in this encounter Plan of Treatment Upcoming Encounters Date Type Department Care Team ([facility] st Contact Info) Description 07/18/2025 9:00 AM EDT Office Visit [facility] MED & PEDS [address] [place] [address] Chato Thomason MD [address] [place] [address] 07/27/2025 1:30 PM EDT Office Visit [facility] ADULT DENTAL [address] [place] [address] Joe Nash DMD [address] [place] [address] 07/28/2025 11:00 AM EDT Clinical Support [facility] MED & PEDS [address] [place] [address] Linda Pelaez RN [address] [place] [address] 09/12/2025 1:30 PM EST Telemedicine [facility] MED & PEDS [address] [place] [address] Linda Pelaez RN [address] [place] [address] documented as of this encounter Visit Diagnoses Not on filedocumented in this encounter Additional Health Concerns Assessment Noted Time PHQ-9 Depression Total Score: 19 024 3:44 PM EDT documented as of this encounter Care Teams Executive Admin Relationship Specialty Start Date End Date Chato Thomason MD [address] [place] [address] PCP - General Internal Medicine 10/27/18 Mackenzie Roland Physician Office Clin Asst 07/09/24 Angela Pozo Physician Office Clin Asst 07/09/24 06/12/25 [facility] 06/12/23 Ezekiel Patricia Physician Office Clin AsstBradder 06/13/25 documented as of this encounter
--- OUTSIDE RECORDS SUMMARY | 2025-06-30 11:52 | XMS_ITS | Encounter Summary ---
Author Organization [employer] Address [address] [place] [address] 7 [place] [address] Care Team Providers Care Barrel Stave Inspector Name Role Phone Chato Thomason MD Primary Care Provider [phone] Kelsey Minaya Unavailable Encounter Details Date Type Department Care Team ([facility] st Contact Info) Description 05/04/2024 Orders Only [facility] CHC MED & PEDS [address] [place], [place] [phone] Chato Thomason MD 505 [place] [address] Squamous cell carcinoma of larynx (CMS/HCC) (Primary [...] Description 07/18/2025 9:00 AM EDT Office Visit [facility] MED & PEDS [address] [place] [address] Chato Thomason MD 505 [place] [address] 07/27/2025 1:30 PM EDT Office Visit [facility] ADULT DENTAL [address] [place] [address] Joe Nash, KARIN [address] [place] [address] 07/28/2025 11:00 AM EDT Clinical Support [facility] MED & PEDS [address] [place] [address] Linda Pelaez, WALT 505 [place] [address] 09/12/2025 1:30 PM EST Telemedicine [facility] MED & PEDS [address] [place] [address] Linda Pelaez, RN 505 [place] [address] documented as of this encounter Visit Diagnoses Diagnosis 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, unspecified site Other insomnia documented in this encounter Care Teams Barrel Stave Inspector Relationship Specialty Start Date End Date Chato Thomason MD [address] [place] [address] PCP - General Internal Medicine 10/27/18 Kelsey Minaya Community Health Worker 06/08/2407/07 Eliane Metzger Flower GrowerNon Licensed Nuclear Plant Operator 01/29/24 07/08/24 Mackenzie Roland Flower Grower 07/09/24 Angela Pozo Flower Grower 07/09/24 06/12/25 [facility] 06/12/23 Ezekiel Patricia Flower GrowerNon Licensed Nuclear Plant Operator 06/13/25 documented as of this encounter
--- OUTSIDE RECORDS SUMMARY | 2025-06-30 11:52 | XMS_ITS | Encounter Summary ---
Author Organization [employer] Address 75 [facility] 7 [place] [address] Care Team Providers Care Retail Pharmacy Merchandiser Name Role Phone Chato Thomason MD Primary Care Provider [phone] Kelsey Minaya Unavailable Reason for Visit * Reason Onset Date Comments Call Back Request 05/03/2024 Encounter Details Date Type Department Care Team ([facility] st Contact Info) Description 05/03/2024 Telephone [facility] MEDICINE [address] [place] [address] Chato Thomason MD 505 [place], [place] [phone] Call Back Request Social History Tobacco Use [...] 4:37 PM EDT Tc from Joyce with [facility] requesting call back to discuss new referral. Joyce stated carecoordination attempted to contact pt but he wasn't able to answer due to pt not being able to speak. Please contact Joyce at [phone]. documented in this encounter Plan of Treatment Upcoming Encounters Date Type Department Care Team (Late st Contact Info) Description 07/18/2025 9:00 AM EDT [facility] MED [facility] PEDS [address] [place] [address] Chato Thomason MD 505 [place] [address] 07/27/2025 1:30 PM EDT Office Visit [facility] ADULT DENTAL [address] [place] [address] Joe Nash DMD [address] [place] [address] 07/28/2025 11:00 AM EDT Clinical Support [facility] MED & PEDS [address] [place] [address] Linda Pelaez RN [address] [place] [address] 09/12/2025 1:30 PM EST Telemedicine [facility] MED & PEDS [address] [place] [address] Linda Pelaez, WALT [address] [place] [address] documented as of this encounter Visit Diagnoses Not on filedocumented in this encounter Care Teams Retail Pharmacy Merchandiser Relationship Specialty Start Date End Date Chato Thomason MD [address] [place] [address] PCP - General Internal Medicine 10/27/18 Kelsey Minaya Community Health Worker 06/08/2407/07 Eliane Metzger Teamcenter Solution ArchitectShear Grinder Operator Helper 01/29/24 07/08/24 Mackenzie Roland Teamcenter Solution Architect 07/09/24 Angela Pozo Teamcenter Solution Architect 07/09/24 06/12/25 [facility] 06/12/23 Ezekiel Patricia Teamcenter Solution ArchitectShear Grinder Operator Helper 06/13/25 documented as of this encounter
--- OUTSIDE RECORDS SUMMARY | 2025-06-30 11:52 | XMS_ITS | Encounter Summary ---
Author Organization [employer] Address 75 [facility] 7 [place] [address] Care Team Providers Care Grain Mill Worker Name Role Phone Chato Thomason MD Primary Care Provider [phone] Kelsey Minaya Unavailable Encounter Details Date Type Department Care Team (Late st Contact Info) Description 08/28/2023 Abstract [facility] MEDICINE [address] [place] [address] Chato Thomason MD [address] [place], [place] [phone] Social History Tobacco Use Types Packs/Day Years [...] [facility] MED & PEDS [address] [place] [address] Chato Thomason MD [address] [place] [address] 07/27/2025 1:30 PM EDT Office Visit [facility] ADULT DENTAL [address] [place] [address] Joe Nash DMD 505 [place] [address] 07/28/2025 11:00 AM EDT Clinical Support [facility] MED & PEDS [address] [place] [address] Linda Pelaez RN 505 [place] [address] 09/12/2025 1:30 PM EST Telemedicine [facility] MED & PEDS [address] [place] [address] Linda Pelaez RN [address] [place] [address] documented as of this encounter Procedures Procedure [...] on filedocumented in this encounter Care Teams Grain Mill Worker Relationship Specialty Start Date End Date Chato Thomason MD [address] [place] [address] PCP - General Internal Medicine 10/27/18 Kelsey Minaya Community Health Worker 06/08/2407/07 Eliane Metzger China DecoratorSales Executive Insurance 01/29/24 07/08/24 Mackenzie Roland China Decorator 07/09/24 Angela Pozo China Decorator 07/09/24 06/12/25 [facility] 06/12/23 Ezekiel Patricia China DecoratorSales Executive Insurance 06/13/25 documented as of this encounter
--- OUTSIDE RECORDS SUMMARY | 2025-06-30 11:52 | XMS_ITS | Encounter Summary ---
Author Organization [employer] Address 75 [facility] 7t [place] [address] Care Team Providers Care Radiation / Chemistry Technician Name Role Phone Chato Thomason MD Primary Care Provider [phone] Kelsey Minaya Unavailable Encounter Details Date Type Department Care Team ([facility] st Contact Info) Description 03/19/2024 Orders Only [facility] CHC MED & PEDS [address] [place], [place] [phone] ProviderColleen MD Social History Tobacco Use Types [...] [facility] MED & PEDS [address] [place] [address] Chato Thomason MD 505 [place] [address] 07/27/2025 1:30 PM EDT Office Visit [facility] ADULT DENTAL [address] [place] [address] Joe Nash DMD [address] [place] [address] 07/28/2025 11:00 AM EDT Clinical Support [facility] MED & PEDS [address] [place] [address] Linda Pelaez, WALT [address] [place] [address] 09/12/2025 1:30 PM EST Telemedicine [facility] MED & PEDS [address] [place] [address] Linda Pelaez, WALT [address] [place] [address] documented as of this encounter Procedures Procedure Name Priority Date/Time Associated Diagnosis Comments SURGICAL PATHOLOGY Routine 03/15/2024 9:13 AM EDT documented in this encounter Results * Surgical Pathology (03/15/2024 9:13 AM EDT) us Historical Provider LAB PATHOLOGY ORDERABLES Final Result documented in this encounter Visit Diagnoses Not on filedocumented in this encounter Care Teams Radiation / Chemistry Technician Relationship Specialty Start Date End Date Chato Thomason MD [address] [place] [address] PCP - General Internal Medicine 10/27/18 Kelsey Minaya Community Health Worker 06/08/2407/07 Eliane Metzger Outreach AnalystRadiology Physician Assistant 01/29/24 07/08/24 Mackenzie Roland Outreach Analyst 07/09/24 Angela Pozo Outreach Analyst 07/09/24 06/12/25 [facility] 06/12/23 Ezekiel Patricia Outreach AnalystRadiology Physician Assistant 06/13/25 documented as of this encounter
--- OUTSIDE RECORDS SUMMARY | 2025-06-30 11:52 | XMS_ITS | Encounter Summary ---
Author Organization [employer] Address [address] [place] [address] 7 [place] [address] Care Team Providers Care Senior Health Consultant Name Role Phone Chato Thomason MD Primary Care Provider [phone] Reason for Visit * Reason Onset Date Comments Medication Question 04/01/2025 Encounter Details Date Type Department Care Team ([facility] Contact Info) Description 04/01/[address] [facility] CHC MED & PEDS [address] [place], [place] [phone] Chato Thomason MD [address] [place] [address] Medication Question Social History Tobacco Use Types [...] encounter Miscellaneous Notes * Telephone Encounter - Barney Macdonald - 04/01/2025 8:09 AM EDT TC from pt mom requesting to slowly start stopping the LORazepam (Ativan) 1 MG tablet , she states the side effects are affecting pt mood. Contact pt mom at [phone] documented in this encounter Plan of Treatment Upcoming Encounters Date Type Department Care Team (Late st Contact Info) Description 07/18/2025 9:00 AM EDT Office Visit [facility] MED & PEDS [address] [place] [address] Chato Thomason MD 505 [place] [address] 07/27/2025 1:30 PM EDT Office Visit [facility] ADULT DENTAL [address] [place] [address] Joe Nash DMD [address] [place] [address] 07/28/2025 11:00 AM EDT Clinical Support [facility] MED & PEDS [address] [place] [address] Linad Pelaez RN [address] [place] [address] 09/12/2025 1:30 PM EST Telemedicine [facility] MED & PEDS [address] [place] [address] Linda Pelaez RN [address] [place] [address] documented as of this encounter Visit Diagnoses Diagnosis Squamous cell carcinoma of larynx (CMS/HCC) Malignant neoplasm of larynx, unspecified site Anxiety Anxiety state, unspecified documented in this encounter Additional Health Concerns Assessment Noted Time PHQ-9 Depression Total Score: 19 024 3:44 PM EDT documented as of this encounter Care Teams Senior Health Consultant Relationship Specialty Start Date End Date Chato Thomason MD [address] [place] [address] PCP - General Internal Medicine 10/27/18 Mackenzie Roland Flower Picker 07/09/24 Angela Pozo Flower Picker 07/09/24 06/12/25 [facility] 06/12/23 Ezekiel Patricia Flower PickerCert Pharmacy Tech 06/13/25 documented as of this encounter
--- OUTSIDE RECORDS SUMMARY | 2025-06-30 11:52 | XMS_ITS | Encounter Summary ---
Author Organization [employer] Address [address] [facility] 7 [place] [address] Care Team Providers Care Wax Machine Operator Name Role Phone Chato Thomason MD Primary Care Provider [phone] Reason for Visit * Reason Onset Date Comments PT1 12/28/2024 Encounter Details Date Type Department Care Team ([facility] st Contact Info) Description 12/28/2024 Telephone [facility] MED[facility]INE [address] [place] [address] Chato Thomason MD [address] [place] [address] PT1 Social History Tobacco Use Types Packs/Day [...] Y/N: Yes Provider name or facility name: [address] [place] [address] [place] [address] - Pain Management Escort needed: Y/N: Yes Do you have a wheelchair: Y/N: No If yes- Manual or electric: N/A Visits: (2x monthly) documented in this encounter Plan of Treatment Upcoming Encounters Date Type Department Care Team (Late st Contact Info) Description 07/18/2025 9:00 AM EDT Office Visit [facility] MED [facility] PED[facility] [address] [place] [address] Chato Thomason MD [address] [place] [address] 07/27/2025 1:30 PM EDT Office Visit [facility] [address] [place] [address] Joe Nash DMD [address] [place] [address] 07/28/2025 11:00 AM EDT Clinical Support [facility] [address] [place] [address] Linda Pelaez, WALT [address] [place] [address] 09/12/2025 1:30 PM EST Telemedicine [facility] [address] [place] [address] Linda Pelaez, WALT [address] [place] [address] documented as of this encounter Visit Diagnoses Not on filedocumented in this encounter Additional Health Concerns Assessment Noted Time PHQ-9 Depression Total Score: 19 024 3:44 PM EDT documented as of this encounter Care Teams Wax Machine Operator Relationship Specialty Start Date End Date Chato Thomason MD [address] [place] [address] PCP - General Internal Medicine 10/27/18 Mackenzie Roland Wash Box Operator 07/09/24 Angela Pozo Wash Box Operator 07/09/24 06/12/25 [facility] 06/12/23 Ezekiel Patricia Wash Box OperatorBusiness Operations Director 06/13/25 documented as of this encounter
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
--- OUTSIDE RECORDS SUMMARY | 2025-06-30 11:52 | XMS_ITS | Encounter Summary ---
Author Organization [facility] [employer] Address [address] [facility] [address] [address] 7 [place] [address] Care Team Providers Care Machine Feeder Floorperson Name Role Phone Chato Thomason MD Primary Care Provider [phone] Reason for Visit * Reason Onset Date Comments Med Refill 02/24/2025 Encounter Details Date Type Department Care Team ([facility] st Contact Info) Description 02/24/2025 Telephone [facility] MEDICINE [address] [place] [address] Chtao Thomason MD [address] [place] [address] Med Refill Social History Tobacco Use Types [...] immediate release tablet To be sent to: [facility] documented in this encounter Plan of Treatment Upcoming Encounters Date Type Department Care Team ([facility] st Contact Info) Description 07/18/2025 9:00 AM EDT Office Visit [facility] MED & PEDS [address] [place] [address] Chato Thomason MD [address] [place] [address] 07/27/2025 1:30 PM EDT Office Visit [facility] ADULT DENTAL [address] [place] [address] Joe Nash DMD [address] [place] [address] 07/28/2025 11:00 AM EDT Clinical Support [facility] MED & PEDS [address] [place] [address] Linda Pelaez RN [address] [place] [address] 09/12/2025 1:30 PM EST Telemedicine [facility] MED & PEDS [address] [place] [address] Linda Pelaez RN [address] [place] [address] documented as of this encounter Visit Diagnoses Not on filedocumented in this encounter Additional Health Concerns Assessment Noted Time PHQ-9 Depression Total Score: 19 024 3:44 PM EDT documented as of this encounter Care Teams Machine Feeder Floorperson Relationship Specialty Start Date End Date Chato Thomason MD [address] [place] [address] PCP - General Internal Medicine 10/27/18 Mackenzie Roland Oceanology Teacher 07/09/24 Angela Pozo Oceanology Teacher 07/09/24 06/12/25 [facility] 06/12/23 Ezekiel Patricia Oceanology TeacherGeophysical Laboratory Supervisor 06/13/25 documented as of this encounter
--- OUTSIDE RECORDS SUMMARY | 2025-06-30 11:52 | XMS_ITS | Encounter Summary ---
Author Organization [email or web address] Address [address] [place] [address] Care Team Providers Care Track Repair Person Name Role Phone Chato Thomason MD Primary Care Provider [phone] Kelsey Minaya Unavailable Reason for Referral * Consultation (Routine) - Closed Specialty Diagnoses / Procedures Referred By Maryana singh Referred To Contact Occupational Therapy Diagnoses Lymphedema Chato Thomason MD [address] [place] [address] Phone: tel: fax: [facility] [address] Phone: tel: fax: Referral ID Status Reason Start Date Expiration Date V isits Requested Visits Authorized [id number] Closed Specialty Services Required 07/16/2024 07/16/2025 1 1 Encounter Details Date Type Department Care Team (Late st Contact Info) Description 07/07/2024 Orders Only [facility] MED & PEDS [address] [place] [address] Chato Thomason MD [address] [place] [address] Anxiety (Primary Dx); Lymphedema Social History Tobacco [...] [facility] MED [facility] [address] [place] [address] Chato Thomason MD [address] [place] [address] 07/27/2025 1:30 PM EDT Office Visit [facility] ADULT DENTAL [address] [place] [address] Joe Nash DMD [address] [place] [address] 07/28/2025 11:00 AM EDT Clinical Support [facility] MED & PEDS [address] [place] [address] Linda Pelaez RN 505 [place] [address] 09/12/2025 1:30 PM EST Telemedicine [facility] MED & PEDS [address] [place] [address] Linda Pelaez RN 505 [place] [address] Scheduled Referrals Name Type Priority Associated Diagnoses Order Schedule Referral to Occupational Therapy Outpatient Referral Routine Lymphedema Expected: 07/16/2024 (Approximate), Expires: 07/16/2025 documented as of this encounter Visit Diagnoses Diagnosis Anxiety- Primary Anxiety state, unspecified Lymphedema Other noninfectious lymphedema documented in this encounter Care Teams Track Repair Person Relationship Specialty Start Date End Date Chato Thomason MD [address] [place] [address] PCP - General Internal Medicine 10/27/18 Kelsey Minaya Community Health Worker 06/08/2407/07 Eliane Metzger Knife Blade PolisherOnline Marketing Manager 01/29/24 07/08/24 Mackenzie Roland Knife Blade Polisher 07/09/24 Angela Pozo Knife Blade Polisher 07/09/24 06/12/25 [facility] 06/12/23 Ezekiel Patricia Knife Blade PolisherOnline Marketing Manager 06/13/25 documented as of this encounter
--- OUTSIDE RECORDS SUMMARY | 2025-06-30 11:52 | XMS_ITS | Encounter Summary ---
Author Organization [employer] Address [address] [facility] 7 [place] [address] Care Team Providers Care Examiner Rating Clerk Name Role Phone Chato Thomason MD Primary Care Provider [phone] Kelsey Minaya Unavailable Reason for Visit * Reason Onset Date Comments PT-1 05/14/2024 Encounter Details Date Type Department Care Team ([facility] st Contact Info) Description 05/14/2024 Telephone [facility] MEDICINE [address] [place] [address] Chato Thomason MD 505 [place], [place] [phone] PT-1 Social History Tobacco Use Types Packs/Day [...] Y/N: Yes Provider name or facility name: [facility] Facility Address: [address] [place] [address] Escort needed: Y/N: Yes Do you have a wheelchair: Y/N: No If yes- Manual or electric: no Visits: 6 documented in this encounter Plan of Treatment Upcoming Encounters Date Type Department Care Team (Late st Contact Info) Description 07/18/2025 9:00 AM EDT Office Visit [facility] MED & PEDS [address] [place] [address] Chato Thomason MD 505 [place] [address] 07/27/2025 1:30 PM EDT Office Visit [facility] ADULT DENTAL [address] [place] [address] Joe Nash DMD [address] [place] [address] 07/28/2025 11:00 AM EDT Clinical Support [facility] MED & PEDS [address] [place] [address] Linda Pelaez RN 505 [place] [address] 09/12/2025 1:30 PM EST Telemedicine [facility] MED & PED[facility] [address] [place] [address] Linda Pelaez RN [address] [place] [address] documented as of this encounter Visit Diagnoses Not on filedocumented in this encounter Care Teams Examiner Rating Clerk Relationship Specialty Start Date End Date Chato Thomason MD 505 [place] [address] PCP - General Internal Medicine 10/27/18 Kelsey Minaya Community Health Worker 06/08/2407/07 Eliane Metzger Complex Case ManagerOceanography Professor 01/29/24 07/08/24 Mackenzie Roland Complex Case Manager 07/09/24 Angela Pozo Complex Case Manager 07/09/24 06/12/25 [facility] 06/12/23 Ezekiel Patricia Complex Case ManagerOceanography Professor 06/13/25 documented as of this encounter
--- OUTSIDE RECORDS SUMMARY | 2025-06-30 11:52 | XMS_ITS | Encounter Summary ---
Author Organization [employer] Address [address] [place] [address] 7 [place] [address] Care Team Providers Care Tongue Carrier Name Role Phone Chato Thomason MD Primary Care Provider [phone] Reason for Visit * Reason Onset Date Comments Med Refill 04/01/2025 Encounter Details Date Type Department Care Team ([facility] Contact Info) Description 04/01/2025 Telephone [facility] CH[facility] MED & PEDS [address] [place], [place] [phone] Chato Thomason MD 505 [place] [address] Med Refill Social History Tobacco Use Types [...] Telephone Encounter - Barney Macdonald - 04/01/2025 8:05 AM EDT TC from pt requesting medication refill. Medications needing refill : LORazepam (Ativan) 1 MG tablet To be sent to: [facility] - [address] documented in this encounter Plan of Treatment Upcoming Encounters Date Type Department Care Team ([facility] st Contact Info) Description 07/18/2025 9:00 AM EDT Office Visit [facility] MED & PEDS [address] [place] [address] Chato Thomason MD 505 [place] [address] 07/27/2025 1:30 PM EDT Office Visit [facility] ADULT DENTAL [address] [place] [address] Joe Nash DMD [address] [place] [address] 07/28/2025 11:00 AM EDT Clinical Support [facility] MED & PEDS [address] [place] [address] Linda Pelaez RN 505 [place] [address] 09/12/2025 1:30 PM EST Telemedicine [facility] MED & PEDS [address] [place] [address] Linda Pelaez RN 505 [place] [address] documented as of this encounter Visit Diagnoses Not on filedocumented in this encounter Additional Health Concerns Assessment Noted Time PHQ-9 Depression Total Score: 19 024 3:44 PM EDT documented as of this encounter Care Teams Tongue Carrier Relationship Specialty Start Date End Date Chato Thomason MD [address] [place] [address] PCP - General Internal Medicine 10/27/18 Mackenzie Roland Measurement Technician 07/09/24 Angela Pozo Measurement Technician 07/09/24 06/12/25 [facility] [employer] [facility] 06/12/23 Ezekiel Patricia Measurement TechnicianPayroll Tax Specialist 06/13/25 documented as of this encounter
--- OUTSIDE RECORDS SUMMARY | 2025-06-30 11:52 | XMS_ITS | Encounter Summary ---
Author Organization [employer] Address [address] [facility] 7t [place] [address] Care Team Providers Care Pearl Stringer Name Role Phone Chato Thomason MD Primary Care Provider [phone] Kelsey Minaya Unavailable Encounter Details Date Type Department Care Team ([facility] st Contact Info) Description 06/24/2024 Orders Only [facility] CHC MED & PEDS [address] [place], [place] [phone] ProviderColleen MD Social History Tobacco Use Types [...] 07/18/2025 9:00 AM EDT Office Visit [facility] MED & PEDS [address] [place] [address] Chato Thomason MD 505 [place] [address] 07/27/2025 1:30 PM EDT Office Visit [facility] ADULT DENTAL [address] [place] [address] Joe Nash, KARIN [address] [place] [address] 07/28/2025 11:00 AM EDT Clinical Support [facility] MED & PEDS [address] [place] [address] Linda Pelaez, WALT 505 [place] [address] 09/12/2025 1:30 PM EST Telemedicine [facility] MED & PEDS [address] [place] [address] Linda Pelaez, WALT [address] [place] [address] documented as of this encounter Procedures Procedure [...] on filedocumented in this encounter Care Teams Pearl Stringer Relationship Specialty Start Date End Date Chato Thomason MD [address] [place] [address] PCP - General Internal Medicine 10/27/18 Kelsey Minaya Community Health Worker 06/08/2407/07 Eliane Metzger Contact Center ProfessionalSilicator 01/29/24 07/08/24 Mackenzie Roland Contact Center Professional 07/09/24 Angela Pozo Contact Center Professional 07/09/24 06/12/25 [facility] 06/12/23 Ezekile Patricia Contact Center ProfessionalSilicator 06/13/25 documented as of this encounter
--- OUTSIDE RECORDS SUMMARY | 2025-06-30 11:52 | XMS_ITS | Encounter Summary ---
Author Organization [employer] Address 75 [facility] 7t [place] [address] Care Team Providers Care Ice Scraper Name Role Phone Chato Thomason MD Primary Care Provider [phone] Kelsey Minaya Unavailable Encounter Details Date Type Department Care Team ([facility] st Contact Info) Description 03/01/2024 Orders Only [facility] CHC MED & PEDS [address] [place], [place] [phone] ProviderColleen MD Social History Tobacco Use Types [...] Description 07/18/2025 9:00 AM EDT Office Visit [facility] MED & PEDS [address] [place] [address] Chato Thomason MD 505 [place] [address] 07/27/2025 1:30 PM EDT Office Visit [facility] ADULT DENTAL [address] [place] [address] Joe Nash DMD 505 [place] [address] 07/28/2025 11:00 AM EDT Clinical Support [facility] MED & PEDS [address] [place] [address] Linda Pelaez, WALT [address] [place] [address] 09/12/2025 1:30 PM EST Telemedicine [facility] MED & PEDS [address] [place] [address] Linda Pelaez, WALT [address] [place] [address] documented as of this encounter Procedures Procedure [...] on filedocumented in this encounter Care Teams Ice Scraper Relationship Specialty Start Date End Date Chato Thomason MD [address] [place] [address] PCP - General Internal Medicine 10/27/18 Kelsey Minaya Community Health Worker 06/08/2407/07 Eliane Metzger Statistical ModelerLicensed Psychologist Director 01/29/24 07/08/24 Mackenzie Roland Statistical Modeler 07/09/24 Angela Pozo Statistical Modeler 07/09/24 06/12/25 [facility] 06/12/23 Ezekiel Patricia Statistical ModelerLicensed Psychologist Director 06/13/25 documented as of this encounter
--- OUTSIDE RECORDS SUMMARY | 2025-06-30 11:52 | XMS_ITS | Encounter Summary ---
Author Organization [employer] Address 75 [facility] 7 [place] [address] Care Team Providers Care Device Test Engineer Name Role Phone Chato Thomason MD Primary Care Provider [phone] Kelsey Minaya Unavailable Reason for Visit * Reason Onset Date Comments Paperwork/Forms 02/02/2024 Encounter Details Date Type Department Care Team ([facility] st Contact Info) Description 02/02/2024 Telephone [facility] MEDICINE [address] [place] [address] Chato Thomason MD 505 [place] [address] Paperwork/Forms Social History Tobacco Use Types Packs/Day [...] - 02/02/2024 10:48 AM EDT Tc from [place] [facility] requesting status of the Transfer Summary that was faxed over on 12/01 the order number is [id number] needs to be completed and signed by the provider as soon as possible and to be faxed to [phone] documented in this encounter Plan of Treatment Upcoming Encounters Date Type Department Care Team (Late st Contact Info) Description 07/18/2025 9:00 AM EDT Office Visit [facility] MED & PEDS [address] [place] [address] Chato Thomason MD [address] [place] [address] 07/27/2025 1:30 PM EDT Office Visit [facility] ADULT DENTAL [address] [place] [address] Joe Nash DMD [address] [place] [address] 07/28/2025 11:00 AM EDT Clinical Support [facility] MED & PEDS [address] [place] [address] Linda Pelaez RN 505 [place] [address] 09/12/2025 1:30 PM EST Telemedicine [facility] MED & PEDS [address] [place] [address] Linda Pelaez, WALT 505 [place] [address] documented as of this encounter Visit Diagnoses Not on filedocumented in this encounter Care Teams Device Test Engineer Relationship Specialty Start Date End Date Chato Thomason MD [address] [place] [address] PCP - General Internal Medicine 10/27/18 Kelsey Minaya Community Health Worker 06/08/2407/07 Eliane Metzger Board FillerChecker In 01/29/24 07/08/24 Mackenzie Roland Board Filler 07/09/24 Angela Pozo Board Filler 07/09/24 06/12/25 [facility] 06/12/23 Ezekiel Patricia Board FillerChecker In 06/13/25 documented as of this encounter
--- OUTSIDE RECORDS SUMMARY | 2025-06-30 11:52 | XMS_ITS | Encounter Summary ---
Author Organization [employer] Address 75 [facility] 7t [place] [address] Care Team Providers Care Can Filling Room Sweeper Name Role Phone Chato Thomason MD Primary Care Provider [phone] Kelsey Minaya Unavailable Encounter Details Date Type Department Care Team ([facility] st Contact Info) Description 06/25/2024 Orders Only [facility] CHC MED & PEDS [address] [place], [place] [phone] ProviderColleen MD Social History Tobacco Use Types [...] 9:00 AM EDT Office Visit [facility] MED & PEDS [address] [place] [address] Chato Thomason MD 505 [place] [address] 07/27/2025 1:30 PM EDT Office Visit [facility] ADULT DENTAL [address] [place] [address] Joe Nash, KARIN [address] [place] [address] 07/28/2025 11:00 AM EDT Clinical Support [facility] MED & PEDS [address] [place] [address] Linda Pelaez, WALT 505 [place] [address] 09/12/2025 1:30 PM EST Telemedicine [facility] MED & PEDS [address] [place] [address] Linda Pelaez, WALT [address] [place] [address] documented as of this encounter Procedures Procedure Name Priority Date/Time Associated Diagnosis Comments [place] MODIFIED BARIUM SWALLOW W/ SPEECH Routine 06/24/2024 8:31 AM EDT documented in this encounter Results * Modified Barium Swallow W/ Speech (06/24/2024 8:31 AM EDT) Anatomical Region Laterality Modality Head, Neck Radiographic Saundra ging Historical Provider MD IMG FLUOROSCOPY PROCEDURE S Final Result documented in this encounter Visit Diagnoses Not on filedocumented in this encounter Care Teams Can Filling Room Sweeper Relationship Specialty Start Date End Date Chato Thomason MD [address] [place] [address] PCP - General Internal Medicine 10/27/18 Kelsey Minaya Community Health Worker 06/08/2407/07 Eliane Metzger Kinesiology InternshipTopographical Field Assistant 01/29/24 07/08/24 Mackenzie Roland Kinesiology Internship 07/09/24 Angela Pozo Kinesiology Internship 07/09/24 06/12/25 [facility] 06/12/23 Ezekiel Patricia Kinesiology InternshipTopographical Field Assistant 06/13/25 documented as of this encounter
--- OUTSIDE RECORDS SUMMARY | 2025-06-30 11:53 | XMS_ITS | Encounter Summary ---
Author Organization [employer] Address [address] [facility] 7 [place] [address] Care Team Providers Care Life Science Taxonomist Name Role Phone Chato Thomason MD Primary Care Provider [phone] Reason for Visit * Reason Onset Date Comments Med Refill 02/15/2025 Encounter Details Date Type Department Care Team ([facility] st Contact Info) Description 02/15/2025 Telephone [facility] MEDICINE [address] [place] [address] Chato Thomason MD [address] [place] [address] Med Refill Social History Tobacco Use Types [...] 7.5 MG tablet To be sent to: [facility] documented in this encounter Plan of Treatment Upcoming Encounters Date Type Department Care Team (Late st Contact Info) Description 07/18/2025 9:00 AM EDT Office Visit [facility] MED & PEDS [address] [place] [address] Chato Thomason MD [address] [place] [address] 07/27/2025 1:30 PM EDT Office Visit [facility] ADULT DENTAL [address] [place] [address] Joe Nash DMD [address] [place] [address] 07/28/2025 11:00 AM EDT Clinical Support [facility] MED & PEDS [address] [place] [address] Linda Pelaez RN [address] [place] [address] 09/12/2025 1:30 PM EST Telemedicine [facility] MED & PEDS [address] [place] [address] Linda Pelaez RN [address] [place] [address] documented as of this encounter Visit Diagnoses Not on filedocumented in this encounter Additional Health Concerns Assessment Noted Time PHQ-9 Depression Total Score: 19 024 3:44 PM EDT documented as of this encounter Care Teams Life Science Taxonomist Relationship Specialty Start Date End Date Chato Thomason MD [address] [place] [address] PCP - General Internal Medicine 10/27/18 Mackenzie Roland Home Theater Installer 07/09/24 Angela Pozo Home Theater Installer 07/09/24 06/12/25 [employer] [facility] 06/12/23 Ezekiel Patricia Home Theater InstallerSchool Administrator 06/13/25 documented as of this encounter
--- OUTSIDE RECORDS SUMMARY | 2025-06-30 11:53 | XMS_ITS | Encounter Summary ---
Author Organization [employer] Address 75 [facility] 7 [place] [address] Care Team Providers Care Racker Octave Board Name Role Phone Chato Thomason MD Primary Care Provider [phone] Reason for Visit * Reason Onset Date Comments Med Refill 02/15/2025 Encounter Details Date Type Department Care Team ([facility] st Contact Info) Description 02/15/2025 Telephone [facility] MEDICINE [address] [place] [address] Chato Thomason MD [address] [place] [address] Med Refill Social History Tobacco Use Types [...] Upcoming Encounters Date Type Department Care Team ([facility] st Contact Info) Description 07/18/2025 9:00 AM EDT Office Visit [facility] MED & PEDS [address] [place] [address] Chato Thomason MD [address] [place] [address] 07/27/2025 1:30 PM EDT Office Visit [facility] ADULT DENTAL [address] [place] [address] Joe Nash DMD [address] [place] [address] 07/28/2025 11:00 AM EDT Clinical Support [facility] MED & PEDS [address] [place] [address] Linda Pelaez RN 505 [place] [address] 09/12/2025 1:30 PM EST Telemedicine [facility] MED & PEDS [address] [place] [address] Linda Pelaez RN [address] [place] [address] documented as of this encounter Visit Diagnoses Not on filedocumented in this encounter Additional Health Concerns Assessment Noted Time PHQ-9 Depression Total Score: 19 024 3:44 PM EDT documented as of this encounter Care Teams Racker Octave Board Relationship Specialty Start Date End Date Chato Thomason MD [address] [place] [address] PCP - General Internal Medicine 10/27/18 Mackenzie Roland Wind Site Manager 07/09/24 Angela Pozo Wind Site Manager 07/09/24 06/12/25 [facility] 06/12/23 Ezekiel Patricia Wind Site ManagerCareer Guidance Technician 06/13/25 documented as of this encounter
--- OUTSIDE RECORDS SUMMARY | 2025-06-30 11:53 | XMS_ITS | Encounter Summary ---
Author Organization [employer] Address [address] [place] [address] 7 [place] [address] Care Team Providers Care Oil Well Cable Tool Driller Name Role Phone Chato Thomason MD Primary Care Provider [phone] Reason for Visit * Reason Onset Date Comments Med Refill 06/29/2025 Encounter Details Date Type Department Care Team ([facility] st Contact Info) Description 06/29/2025 Refill [facility] CHC MED & PEDS [address] [place], [place] [phone] Chato Thomason MD [address] [place] [address] Squamous cell carcinoma of larynx (CMS/HCC) Social [...] * Telephone Encounter - Barney Macdonald - 06/29/2025 8:07 AM EDT TC from pt requesting medication refill. Medications needing refill : oxyCODONE (Roxicodone) 15 MG immediate release tablet To be sent to: [facility] - [place], [place] - [address] [place] [address] documented in this encounter Plan of Treatment Upcoming Encounters Date Type Department Care Team (Late st Contact Info) Description 07/18/2025 9:00 AM EDT Office Visit [facility] MED & PEDS [address] [place] [address] Chato Thomason MD [address] [place] [address] 07/27/2025 1:30 PM EDT Office Visit [facility] ADULT DENTAL [address] [place] [address] Joe Nash DMD 505 [place] [address] 07/28/2025 11:00 AM EDT Clinical Support [facility] MED & PEDS [address] [place] [address] Linda Pelaez RN 505 [place] [address] 09/12/2025 1:30 PM EST Telemedicine [facility] MED & PEDS [address] [place] [address] Linda Pelaez RN [address] [place] [address] documented as of this encounter Visit Diagnoses Diagnosis Squamous cell carcinoma of larynx (CMS/HCC) Malignant neoplasm of larynx, unspecified site documented in this encounter Additional Health Concerns Assessment Noted Time PHQ-9 Depression Total Score: 19 024 3:44 PM EDT documented as of this encounter Care Teams Oil Well Cable Tool Driller Relationship Specialty Start Date End Date Chato Thomason MD [address] [place] [address] PCP - General Internal Medicine 10/27/18 Mackenzie Roland Sales Administration Manager 07/09/24 [facility] 06/12/23 Ezekiel Patricia Sales Administration ManagerSoftware Database Architect 06/13/25 documented as of this encounter
--- OUTSIDE RECORDS SUMMARY | 2025-06-30 11:53 | XMS_ITS | Encounter Summary ---
Author Organization [employer] Address 75 [facility] 7 [place] [address] Care Team Providers Care Rag Room Supervisor Name Role Phone Chato Thomason MD Primary Care Provider [phone] Reason for Visit * Reason Onset Date Comments Med Refill 02/21/2025 Encounter Details Date Type Department Care Team ([facility] st Contact Info) Description 02/21/2025 Telephone [facility] MEDICINE [address] [place] [address] Chato Thomason MD [address] [place] [address] Med Refill Social History Tobacco Use Types [...] 1 MG tablet To be sent to: [facility] - [address] documented in this encounter Plan of Treatment Upcoming Encounters Date Type Department Care Team ([facility] st Contact Info) Description 07/18/2025 9:00 AM EDT Office Visit [facility] MED & PEDS [address] [place] [address] Chato Thomason MD [address] [place] [address] 07/27/2025 1:30 PM EDT Office Visit [facility] ADULT DENTAL [address] [place] [address] Joe Nash DMD [address] [place] [address] 07/28/2025 11:00 AM EDT Clinical Support [facility] MED & PEDS [address] [place] [address] Linda Pelaez RN 505 [place] [address] 09/12/2025 1:30 PM EST Telemedicine [facility] MED & PEDS [address] [place] [address] Linda Pelaez RN [address] [place] [address] documented as of this encounter Visit Diagnoses Not on filedocumented in this encounter Additional Health Concerns Assessment Noted Time PHQ-9 Depression Total Score: 19 024 3:44 PM EDT documented as of this encounter Care Teams Rag Room Supervisor Relationship Specialty Start Date End Date Chato Thomason MD [address] [place] [address] PCP - General Internal Medicine 10/27/18 Mackenzie Roland Gravure Printing Machinist 07/09/24 Angela Pozo Gravure Printing Machinist 07/09/24 06/12/25 [facility] 06/12/23 Ezekiel Patricia Gravure Printing MachinistDrafter (Cad) Electronic 06/13/25 documented as of this encounter
--- OUTSIDE RECORDS SUMMARY | 2025-06-30 11:53 | XMS_ITS | Encounter Summary ---
Author Organization [employer] Address [address] [place] [address] 7 [place] [address] Care Team Providers Care Industrial Furnace Fabricator Name Role Phone Chato Thomason MD Primary Care Provider [phone] Kelsey Minaya Unavailable Reason for Visit * Reason Onset Date Comments PT1 06/07/2024 Encounter Details Date Type Department Care Team ([facility] st Contact Info) Description 06/07/2024 Telephone [facility] MED & PEDS [address] [place], [place] [phone] Chato Thomason MD [address] [place] [address] PT1 Social History Tobacco Use Types Packs/Day [...] Yes Provider name or facility name: [facility] Facility Address: [address] [place] [address] Escort needed: Y/N: Yes Do you have a wheelchair: Y/N: No If yes- Manual or electric: n/a Visits: 1 x week documented in this encounter Plan of Treatment Upcoming Encounters Date Type Department Care Team (Late st Contact Info) Description 07/18/2025 9:00 AM EDT Office Visit [facility] MED & PEDS [address] [place] [address] Chato Thomason MD [address] [place] [address] 07/27/2025 1:30 PM EDT Office Visit [facility] ADULT DENTAL [address] [place] [address] Joe Nash DMD [address] [place] [address] 07/28/2025 11:00 AM EDT Clinical Support [facility] MED & PEDS [address] [place] [address] Linda Pelaez RN 505 [place] [address] 09/12/2025 1:30 PM EST Telemedicine [facility] CHC MED & PEDS [address] [place] [address] Linda Pelaez, WALT [address] [place], [place] [phone] documented as of this encounter Visit Diagnoses Not on filedocumented in this encounter Care Teams Industrial Furnace Fabricator Relationship Specialty Start Date End Date Chato Thomason MD [address] [place] [address] PCP - General Internal Medicine 10/27/18 Kelsey Minaya Community Health Worker 06/08/2407/07 Eliane Metzger Title AssistantField Horticultural Specialty Grower 01/29/24 07/08/24 Mackenzie Roland Title Assistant 07/09/24 Angela Pozo Title Assistant 07/09/24 06/12/25 [facility] 06/12/23 Ezekiel Patricia Title AssistantField Horticultural Specialty Grower 06/13/25 documented as of this encounter
--- OUTSIDE RECORDS SUMMARY | 2025-06-30 11:53 | XMS_ITS | Encounter Summary ---
Author Organization [email or web address] Address [address] [place] [address] Care Team Providers Care Sheet Cutter Name Role Phone Chato Thomason MD Primary Care Provider [phone] Reason for Referral * Consultation (Routine) - Closed Specialty Diagnoses / Procedures Referred By Maryana singh Referred To Contact Occupational Therapy Diagnoses Neuropathic pain Physical deconditioning Chato Thomason MD [address] [place] [address] Phone: tel: fax: [facility] [address] Phone: tel: fax: Referral ID Status Reason Start Date Expiration Date V isits Requested Visits Authorized [id number] Closed Specialty Services Required 03/03/2025 03/03/2026 1 1 * Consultation (Routine) - Closed Specialty Diagnoses / Procedures Referred By Maryana singh Referred To Contact Physical Therapy Diagnoses Neuropathic pain Physical deconditioning Chato Thomason MD [address] [place] [address] Phone: tel: fax: [facility] [address] Phone: tel: fax: Referral ID Status Reason Start Date Expiration Date V isits Requested Visits Authorized [id number] Closed Specialty Services Required 02/21/2025 02/21/2026 20 20 Encounter Details Date Type Department Care Team (Late st Contact Info) Description 02/17/2025 Orders Only [facility] CHC MED & PEDS [address] [place] [address] Chato Thomason MD [address] [place] [address] Neuropathic pain (Primary Dx); Physical deconditioning Social [facility] [address] [place] [address] Chato Thomason MD [address] [place] [address] 07/27/2025 1:30 PM EDT Office Visit [facility] ADULT DENTAL [address] [place] [address] Joe Nash DMD [address] [place] [address] 07/28/2025 11:00 AM EDT Clinical Support [facility] MED & PEDS [address] [place] [address] Linda Pelaez RN 505 [place] [address] 09/12/2025 1:30 PM EST Telemedicine [facility] MED & PEDS [address] [place] [address] Linda Pelaez RN 505 [place] [address] Scheduled Referrals Name Type Priority Associated Diagnoses [...] documented as of this encounter Care Teams Sheet Cutter Relationship Specialty Start Date End Date Chato Thomason MD [address] [place] [address] PCP - General Internal Medicine 10/27/18 Mackenzie Roland Millwright 07/09/24 Angela Pozo Millwright 07/09/24 06/12/25 [facility] 06/12/23 Ezekiel Patricia MillwrightRolled Gold Plater 06/13/25 documented as of this encounter
--- OUTSIDE RECORDS SUMMARY | 2025-06-30 11:53 | XMS_ITS | Encounter Summary ---
Author Organization [employer] Address 75 [facility] 7 [place] [address] Care Team Providers Care Health And Safety Specialist Name Role Phone Chato Thomason MD Primary Care Provider [phone] Reason for Visit * Reason Onset Date Comments PT1 02/15/2025 Encounter Details Date Type Department Care Team ([facility] st Contact Info) Description 02/15/2025 Telephone [facility] MEDICINE [address] [place] [address] Chato Thomason MD [address] [place] [address] PT1 Social History Tobacco Use Types Packs/Day [...] Y/N: Yes Provider name or facility name: [address] [place] [address] - [facility] Escort needed: Y/N: Yes Do you have a wheelchair: Y/N: No If yes- Manual or electric: N/A Visits: (2x weekly) documented in this encounter Plan of Treatment Upcoming Encounters Date Type Department Care Team ([facility] st Contact Info) Description 07/18/2025 9:00 AM EDT Office Visit [facility] CHC MED & PEDS [address] [place] [address] Chato Thomason MD 505 [place] [address] 07/27/2025 1:30 PM EDT Office Visit [facility] ADULT DENTAL [address] [place] [address] Joe Nash, DMD 505 [place] [address] 07/28/2025 11:00 AM EDT Clinical Support [facility] MED & PEDS [address] [place], [place] [phone] Linda Pelaez RN [address] [place] 09/12/2025 1:30 PM EST Telemedicine [facility] MED & PEDS [address] [place] [address] Linda Pelaez RN 505 [place] [address] documented as of this encounter Visit Diagnoses Not on filedocumented in this encounter Additional Health Concerns Assessment Noted Time PHQ-9 Depression Total Score: 19 024 3:44 PM EDT documented as of this encounter Care Teams Health And Safety Specialist Relationship Specialty Start Date End Date Chato Thomason MD [address] [place] [address] PCP - General Internal Medicine 10/27/18 Mackenzie Roland Coat Repair Inspector 07/09/24 Angela Pozo Coat Repair Inspector 07/09/24 06/12/25 [facility] 06/12/23 Ezekiel Patricia Coat Repair InspectorEarth Moving Technician 06/13/25 documented as of this encounter
--- OUTSIDE RECORDS SUMMARY | 2025-06-30 11:53 | XMS_ITS | Encounter Summary ---
Author Organization [employer] Address 75 [facility] 7 [place] [address] Care Team Providers Care Cashier Manager Name Role Phone Chato Thomason MD Primary Care Provider [phone] Reason for Visit * Reason Onset Date Comments PT1 05/24/2025 Encounter Details Date Type Department Care Team ([facility] st Contact Info) Description 05/24/2025 Telephone [facility] MEDICINE [address] [place] [address] Chato Thomason MD 505 [place] [address] PT1 Social History Tobacco Use Types Packs/Day [...] * Telephone Encounter - Juliet Todd - 05/24/2025 8:02 AM EDT Patient calling requesting PT1 Home Address verified: Y/N: Yes Provider name or facility name: [address] [place] [address] Escort needed: Y/N: Yes Do you have a wheelchair: Y/N: No If yes- Manual or electric: N/A Visits: 2 x monthly Patient calling requesting PT1 Home Address verified: Y/N: Yes Provider name or facility name: [address] [place] [address] Escort needed: Y/N: Yes Do you have a wheelchair: Y/N: No If yes- Manual or electric: N/A Visits: 3 x monthly documented in this encounter Plan of Treatment Upcoming Encounters Date Type Department Care Team ([facility] Contact Info) Description 07/18/2025 9:00 AM EDT Office Visit [facility] CHC MED & PEDS [address] [place], [place] [phone] Chato Thomason MD 505 [place] [address] 07/27/2025 1:30 PM EDT Office Visit [facility] ADULT DENTAL [address] [place] [address] Joe Nash, DMD 505 [place] [address] 07/28/2025 11:00 AM EDT Clinical Support [facility] MED & PEDS [address] [place] [address] Linda Pelaez RN 505 [place] [address] 09/12/2025 1:30 PM EST Telemedicine [facility] MED & PEDS [address] [place] [address] Linda Pelaez RN 505 [place] [address] documented as of this encounter Visit Diagnoses Not on filedocumented in this encounter Additional Health Concerns Assessment Noted Time PHQ-9 Depression Total Score: 19 024 3:44 PM EDT documented as of this encounter Care Teams Cashier Manager Relationship Specialty Start Date End Date Chato Thomason MD [address] [place] [address] PCP - General Internal Medicine 10/27/18 Mackenzie Roland Teen Counselor 07/09/24 Angela Pozo Teen Counselor 07/09/24 06/12/25 [facility] 06/12/23 Ezekiel Patricia Teen CounselorGeological Science Teacher 06/13/25 documented as of this encounter
--- OUTSIDE RECORDS SUMMARY | 2025-06-30 11:53 | XMS_ITS | Encounter Summary ---
Author Organization [employer] Address 75 [facility] 7t [place] [address] Care Team Providers Care Urologist Physician Name Role Phone Chato Thomason MD Primary Care Provider [phone] Encounter Details Date Type Department Care Team (Late st Contact Info) Description 06/03/2025 Orders Only [facility] [address] [place] [address] ProviderColleen MD Social History Tobacco Use Types [...] ([facility] st Contact Info) Description 07/18/2025 9:00 AM EDT Office Visit [facility] MED & PEDS [address] [place] [address] Chato Thomason MD 505 [place] [address] 07/27/2025 1:30 PM EDT Office Visit [facility] ADULT DENTAL [address] [place] [address] Joe Nash DMD [address] [place] [address] 07/28/2025 11:00 AM EDT Clinical Support [facility] MED & PEDS [address] [place] [address] Linda Pelaez RN [address] [place] [address] 09/12/2025 1:30 PM EST Telemedicine [facility] MED & PEDS [address] [place] [address] Linda Pelaez RN [address] [place] [address] documented as of this encounter Procedures Procedure Name Priority Date/Time Associated Diagnosis Comments FL MODIFIED BARIUM SWALLOW Routine 06/02/2025 11:09 AM EDT documented in this encounter Results * FL MODIFIED BARIUM SWALLOW (06/02/2025 11:09 AM EDT) Anatomical Region Laterality Modality Radiographic Saundra ging us Historical Provider MD JEAN FLUOROSCOPY PROCEDURE S Final Result documented in this encounter Visit Diagnoses Not on filedocumented in this encounter Additional Health Concerns Assessment Noted Time PHQ-9 Depression Total Score: 19 024 3:44 PM EDT documented as of this encounter Care Teams Urologist Physician Relationship Specialty Start Date End Date Chato Thomason MD [address] [place] [address] PCP - General Internal Medicine 10/27/18 Mackenzie Roland Fence Laborer 07/09/24 Angela Pozo Fence Laborer 07/09/24 06/12/25 [facility] 06/12/23 Ezekiel Patricia Fence LaborerClothespin Drier Operator 06/13/25 documented as of this encounter
--- OUTSIDE RECORDS SUMMARY | 2025-06-30 11:53 | XMS_ITS | Encounter Summary ---
Author Organization [employer] Address [address] [place] [address] 7t [place] [address] Care Team Providers Care Director Retirement Name Role Phone Chato Thomason MD Primary Care Provider [phone] Reason for Visit * Reason Onset Date Comments cx appt medical situation needs new date 025 Encounter Details Date Type Department Care Team ([facility] Contact Info) Description 06/21/2025 Telephone [facility] CHC ADULT DENTAL [address] [place], [place] [phone] Joe Nash, DMD [address] [place] [address] cx appt medical situation needs new date Social History Tobacco Use Types Packs/Day Years [...] encounter Miscellaneous Notes * Telephone Encounter - Viviana Reilly - 06/21/2025 9:53 AM EDT Mother of patient called in stating that patient hs appt tomorrow at 10am with OS however his feeding tube fell out and he has an emergency appt tomorrow to have it replaced and is not able to keep this appt. Would like to be rescheduled. Explained that there is a waiting list due to provider limited schedule however I would send message to chief crew scheduler to update. documented in this encounter Plan of Treatment Upcoming Encounters Date Type Department Care Team (Late st Contact Info) Description 07/18/2025 9:00 AM EDT Office Visit [facility] MED & PEDS [address] [place] [address] Chato Thomason MD [address] [place] [address] 07/27/2025 1:30 PM EDT Office Visit [facility] ADULT DENTAL [address] [place] [address] Joe Nash, DMD [address] [place] [address] 07/28/2025 11:00 AM EDT Clinical Support [facility] MED & PEDS [address] [place] [address] Linda Pelaez RN 505 [place] [address] 09/12/2025 1:30 PM EST Telemedicine [facility] MED & PEDS [address] [place] [address] Linda Pelaez RN [address] [place] [address] documented as of this encounter Visit Diagnoses Not on filedocumented in this encounter Additional Health Concerns Assessment Noted Time PHQ-9 Depression Total Score: 19 024 3:44 PM EDT documented as of this encounter Care Teams Director Retirement Relationship Specialty Start Date End Date Chato Thomason MD [address] [place] [address] PCP - General Internal Medicine 10/27/18 Mackenzie Roland Professor Of Art 07/09/24 [facility] 06/12/23 Ezekiel Patricia Professor Of ArtSoda Dry House Operator 06/13/25 documented as of this encounter
--- OUTSIDE RECORDS SUMMARY | 2025-06-30 11:53 | XMS_ITS | Encounter Summary ---
Author Organization [employer] Address 75 [facility] 7 [place] [address] Care Team Providers Care Sharepoint Solutions Developer Name Role Phone Chato Thomason MD Primary Care Provider [phone] Reason for Visit * Reason Onset Date Comments pt1 01/26/2025 Encounter Details Date Type Department Care Team ([facility] st Contact Info) Description 01/26/2025 Telephone [facility] MEDICINE [address] [place] [address] Chato Thomason MD [address] [place] [address] pt1 Social History Tobacco Use Types Packs/Day [...] Y/N: Yes Provider name or facility name: [address] [place] [address] Escort needed: Y/N: Yes Do you have a wheelchair: Y/N: No If yes- Manual or electric: n/a Visits: (2x monthly) documented in this encounter Plan of Treatment Upcoming Encounters Date Type Department Care Team (Late st Contact Info) Description 07/18/2025 9:00 AM EDT Office Visit [facility] MED & PEDS 505 [place] [address] Chato Thomason MD [address] [place] [address] 07/27/2025 1:30 PM EDT Office Visit [facility] ADULT DENTAL 505 [place] [address] Joe Nash DMD 505 [place] [address] 07/28/2025 11:00 AM EDT Clinical Support [facility] MED & PEDS [address] [place] [address] Linda Pelaez, WALT 505 [place] [address] 09/12/2025 1:30 PM EST Telemedicine [facility] MED & PEDS [address] [place] [address] Linda Pelaez RN 505 [place] [address] documented as of this encounter Visit Diagnoses Not on filedocumented in this encounter Additional Health Concerns Assessment Noted Time PHQ-9 Depression Total Score: 19 024 3:44 PM EDT documented as of this encounter Care Teams Sharepoint Solutions Developer Relationship Specialty Start Date End Date Chato Thomason MD [address] [place] [address] PCP - General Internal Medicine 10/27/18 Mackenzie Roland Starch Crab 07/09/24 Angela Pozo Starch Crab 07/09/24 06/12/25 [facility] 06/12/23 Ezekiel Patricia Starch CrabStaff Electronic Warfare Officer 06/13/25 documented as of this encounter
--- OUTSIDE RECORDS SUMMARY | 2025-06-30 11:53 | XMS_ITS | Encounter Summary ---
Author Organization [employer] Address 75 [facility] 7 [place] [address] Care Team Providers Care Right Of Way Man Name Role Phone Chato Thomason MD Primary Care Provider [phone] Reason for Visit * Reason Onset Date Comments Med Refill 02/02/2025 Encounter Details Date Type Department Care Team ([facility] st Contact Info) Description 02/02/2025 Telephone [facility] MEDICINE [address] [place] [address] Chato Thomason MD 505 [place] [address] Med Refill Social History Tobacco Use Types [...] immediate release tablet To be sent to: [facility] - [address] documented in this encounter Plan of Treatment Upcoming Encounters Date Type Department Care Team ([facility] st Contact Info) Description 07/18/2025 9:00 AM EDT Office Visit [facility] MED & PEDS [address] [place] [address] Chato Thomason MD 505 [place] [address] 07/27/2025 1:30 PM EDT Office Visit [facility] ADULT DENTAL [address] [place] [address] Joe Nash DMD 505 [place] [address] 07/28/2025 11:00 AM EDT Clinical Support [facility] MED & PEDS [address] [place] [address] Linda Pelaez RN 505 [place] [address] 09/12/2025 1:30 PM EST Telemedicine [facility] MED & PEDS [address] [place] [address] Linda Pelaez RN [address] [place] [address] documented as of this encounter Visit Diagnoses Diagnosis Squamous cell carcinoma of larynx (CMS/HCC) Malignant neoplasm of larynx, unspecified site documented in this encounter Additional Health Concerns Assessment Noted Time PHQ-9 Depression Total Score: 19 024 3:44 PM EDT documented as of this encounter Care Teams Right Of Way Man Relationship Specialty Start Date End Date Chato Thomason MD [address] [place] [address] PCP - General Internal Medicine 10/27/18 Mackenzie Roland Business Process Architect 07/09/24 Angela Pozo Business Process Architect 07/09/24 06/12/25 [employer] [facility] 06/12/23 Ezekiel Patricia Business Process ArchitectWelder Journeyman 06/13/25 documented as of this encounter
--- OUTSIDE RECORDS SUMMARY | 2025-06-30 11:53 | XMS_ITS | Encounter Summary ---
Author Organization [employer] Address 75 [facility] 7 [place] [address] Care Team Providers Care Landscape Crew Leader Name Role Phone Chato Thomason MD Primary Care Provider [phone] Reason for Visit * Reason Onset Date Comments PT1 02/04/2025 Encounter Details Date Type Department Care Team ([facility] st Contact Info) Description 02/04/2025 Telephone [facility] MEDICINE [address] [place] [address] Chato Thomason MD 505 [place] [address] PT1 Social History Tobacco Use Types Packs/Day [...] Yes Provider name or facility name: 175 [place] [address] Escort needed: Y/N: Yes Do you have a wheelchair: Y/N: No If yes- Manual or electric: N/A Visits: ( 1x weekly) Patient calling requesting PT1 Home Address verified: Y/N: Yes Provider name or facility name: [address] [place] [address] Escort needed: Y/N: Yes Do you have a wheelchair: Y/N: No If yes- Manual or electric: N/A Visits: ( 1x month) documented in this encounter Plan of Treatment Upcoming Encounters Date Type Department Care Team (Late st Contact Info) Description 07/18/2025 9:00 AM EDT Office Visit [facility] MED & PEDS 505 [place], [place] [phone] Chato Thomason MD [address] [place] [address] 07/27/2025 1:30 PM EDT Office Visit [facility] ADULT DENTAL [address] [place] [address] Joe Nash, DMD 505 [place] [address] 07/28/2025 11:00 AM EDT Clinical Support [facility] MED & PEDS [address] [place] [address] Linda Pelaez RN 505 [place] [address] 09/12/2025 1:30 PM EST Telemedicine [facility] MED & PEDS [address] [place] [address] Linda Pelaez RN [address] [place] [address] documented as of this encounter Visit Diagnoses Not on filedocumented in this encounter Additional Health Concerns Assessment Noted Time PHQ-9 Depression Total Score: 19 024 3:44 PM EDT documented as of this encounter Care Teams Landscape Crew Leader Relationship Specialty Start Date End Date Chato Thomason MD [address] [place] [address] PCP - General Internal Medicine 10/27/18 Mackenzie Roland Senior Program Analyst 07/09/24 Angela Pozo Senior Program Analyst 07/09/24 06/12/25 [facility] 06/12/23 Ezekiel Patricia Senior Program AnalystCrossbar Frame Wirer 06/13/25 documented as of this encounter
== END 2025-06-30 10:31 | disposition home or self-care (01) ==
LOC: HO.PMC 10:30
PROVIDERS: PCP Internal Medicine; Visit Provider Anesthesiology
DX: G89.4 Chronic pain syndrome (principal); M54.2 Cervicalgia; G62.9 Polyneuropathy, unspecified; M54.16 Radiculopathy, lumbar region; G62.0 Drug-induced polyneuropathy; T45.1X5A Adverse effect of antineoplastic and immunosuppressive drugs, initial encounter
CPT/HCPCS: 99213

== ENCOUNTER → 2025-06-30 10:30 | Outpatient (BNVA) | payer MEDICAID, SELFPAY | PROVIDERS: PCP Internal Medicine; Visit Provider Anesthesiology | DX: M54.2 Cervicalgia (principal); M54.16 Radiculopathy, lumbar region; G89.4 Chronic pain syndrome; G62.0 Drug-induced polyneuropathy; T45.1X5A Adverse effect of antineoplastic and immunosuppressive drugs, initial encounter; Z93.0 Tracheostomy status; Z93.1 Gastrostomy status | CPT/HCPCS: 99212 ==

== ENCOUNTER 2025-07-01 05:58 | Day surgery (SDC) | payer MEDICAID, SELFPAY ==
--- OUTSIDE RECORDS SUMMARY | 2025-06-09 13:42 | XMS_ITS | Encounter Summary ---
Author Organization [employer] Address 75 [facility] 7 [place] [address] Care Team Providers Care Sap Pp Consultant Name Role Phone Chato Thomason MD Primary Care Provider [phone] Reason for Visit * Reason Comments Med Refill Encounter Details Date Type Department Care Team ([facility] st Contact Info) Description 04/25/2025 Refill [facility] MEDICINE [address] [place] [address] Chato Thomason MD [address] [place] [address] Anxiety Social History Tobacco Use Types Packs/Day [...] Care Team (Late st Contact Info) Description 06/20/2025 11:00 AM EDT Telemedicine [facility] MED & PEDS [address] [place] [address] Linda Pelaez RN 505 [place] [address] 06/22/2025 10:00 AM EDT Office Visit [facility] ADULT DENTAL [address] [place] [address] Joe Nash DMD [address] [place] [address] 07/18/2025 9:00 AM EDT Office Visit [facility] MED & PEDS [address] [place] [address] Chato Thomason MD [address] [place] [address] documented as of this encounter Visit Diagnoses Diagnosis Anxiety Anxiety state, unspecified documented in this encounter Additional Health Concerns Assessment Noted Time PHQ-9 Depression Total Score: 19 024 3:44 PM EDT documented as of this encounter Care Teams Sap Pp Consultant Relationship Specialty Start Date End Date Chato Thomason MD [address] [place] [address] PCP - General Internal Medicine 10/27/18 Mackenzie Roland Pin Or Clip Fastener 07/09/24 Angela Pozo Pin Or Clip Fastener 07/09/24 [facility] 06/12/23 documented as of this encounter
--- OUTSIDE RECORDS SUMMARY | 2025-06-09 13:42 | XMS_ITS | Clinical Summary ---
Author Organization 175 [facility] Address [address] [place] [address] Phone Care Team Providers Care Underground Production Foreperson Name Role Phone Physician, No Pcp Primary Care Provider Unavaila ble Active Problems Problem Noted Date Diagnosed Date Lymphatic edema 09/30/2024 Encounters Date Type Department Care Team Description 05/16/2025 1:30 PM EDT Treatment [facility] [address] [place] [phone] Philip Botelloa P, OTR/L Lymphedema of face (Primary Dx) 05/03/2025 11:00 AM EDT Treatment [facility] [address] [place] [phone] Esthela Botelloria P, OTR/L Lymphedema of face (Primary Dx) 04/28/2025 1:00 PM EDT Evaluation [facility] [address] [place] [phone] Philip Botelloa P, OTR/L Lymphedema of face (Primary Dx) 04/28/2025 Plan of Care Documentation [facility] [address] [place] [address] [phone] from Last 3 Months Social History Tobacco Use Types Packs/Day Years Used Date Smoking Tobacco: Never Assessed Sex and Gender Information Value Date Recorded Sex Assigned at Male 05/04/2025 3:54 PM EDT Legal Sex Male 8:43 PM EST Gender Identity Male 05/04/2025 3:54 PM EDT Sexual Orientation Straight 05/04/2025 3: 54 PM EDT Plan of Treatment Upcoming Encounters Date Type Department Care Team (Late st Contact Info) Description 07/11/2025 1:[address] [facility] Occupational Therapy [address] [facility] [address] [place] [address] Nilam Botello P, OTR/L Health Maintenance Due Date Last Done Comments COVID-19 Vaccine (#1) 1971 DTaP,Tdap,and Td Vaccines (1 - Tdap) 1985 Hepatitis B Vaccines (1 of 3 - 19+ 3-dose series) 1985 Pneumococcal Vaccine: 50+ Ye ars (1 of 2 - PCV) 1985 Zoster Vaccines (1 of 2) 1985 Colorectal Cancer Screening: Colonoscopy 11/21/2023 HIV Screening 11/21/2023 Hepatitis C Screening 11/21/2023 Lung Cancer Screening (Low D ose CT) 11/21/2023 Social Influencers of Health Screening 11/21/2023 Hypertension/CHF/CAD Annual BMP Blood Test 09/22/2024 Depression Screening 10/27/2024 Influenza Vaccine (#1) 2025 11/10/2023 Cholesterol Screening (Lipid Panel) 12/19/2026 12/19/2021 RSV Immunization Adult Patie nts (1 - 1-dose 75+ series) 2041 HIB Vaccines Aged Out No longer eligi [...] Type Associated Problems Recent Progress Patient-Stated? Author I want to feel less tight in my neck General Yes Nilam Botello, OTR/L Note: Patient will be able to demo HEP to increase neck ROM Patient will present with increased neck extension of at least 15 degrees ( which he measured 01/25/2025) I want to be more comfortable to sleep General Yes Nilam Botello, OTR/L Note: Patient reports increased ability to sleep resulting from decreased tissue tightness/ lymph edema Insurance MEDICAID - [place] Care Teams Underground Production Foreperson Relationship Specialty Start Date End Date Physician, No Pcp PCP - General 09/22/24
[2025-06-29 15:33] VITALS: BMI 38.8
--- NOTE | ~2025-07-01 | FL_ITS ---
EXAMINATION: FL GUIDANCE ONLY HISTORY: spinal cord stimulation trial COMPARISON: None available. TECHNIQUE: Fluoroscopy time: 5 minutes, 20 seconds. Cumulative Dose: 268.99 mGy. DAP: 78.435 mGym2 Images: 3. FINDINGS: Fluoroscopic spot films of the spine demonstrate a stimulator in place with the tip of the lead at the superior endplate of T8. FL/FL guidance in OR IMPRESSION: Fluoroscopy during procedure. Please see procedure report for additional information. Electronically signed by: Nathan Ho MD 07/01/2025 09:52 AM EDT
[2025-07-01 06:39] VITALS: BP 119/79; PULSE 64; RESP 16; TEMP 36.7; O2SAT 93
--- NOTE | 2025-07-01 07:22 | MHC.SHP ---
Pre-Procedural Eval Section A - 24 Hr Update-Section A only Date of Service: 07/01/25 The patient is an INPATIENT: No Changes since office visit: Yes Patient answered all questions The patient has been examined within 24 hours of the surgical procedure. 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) History of Previous Operations: Relevant previous surgery/procedure and date(s) (laryngectomy h/o, tracheostomy) Allergies: Allergies Allergy/AdvReac Type Severity Reaction Status Date / Time lisinopril Allergy Unknown Swelling Verified 01/14/25 15:14 Review of Systems Sugical H&P ROS: Negative: Cardiovascular, Psychiatric, Hem-Onc, Allergic/Immunologic, Gastrointestinal, Genitourinary, Musculoskeletal, Integumentary, Endocrine and Eyes/Ears/Nose/Throat and Yes, Specify: Constitution (morbidely obese), Respiratory (laryngeal cancer s/p laryngectomy) and Neurological (chemotherapy induced polyneuropathy) Exam Surgical H&P Exam: Normal: HEENT, Normal: Heart, Normal: Lungs, Normal: Extremities, Normal: Abdomen, Normal: Skin and Normal: Neurological Plan Diagnosis/Plan: Unchanged I have reviewed the history and physical and performed a pertinent physical examination on my patient. No changes have occurred unless specified. Time Spent With Patient Time: Total time managing care of this patient today ____ minutes.
[2025-07-01 09:29] VITALS: BP 108/41; PULSE 55; RESP 18; O2SAT 92
--- NOTE | 2025-07-01 09:34 | P.BOP_ITS ---
Brief Operative Note Date of Service: 07/01/25 Pre-op diagnosis: Peripheral polyneuropathy Post-op diagnosis: same Procedure: Trial of Nevro spinal cord stimulator Surgeon: Moe Luna MD Anesthesia: local Was an Senior Java Software Developer used for this Procedure?: No Estimated blood loss (mL): 0 Condition: stable Disposition: PACU
--- NOTE | 2025-07-01 09:53 | W.PM.OPN ---
Operative Note Operative Note Date of Service: 07/01/25 Narrative: Trial of spinal cord stimulator Nevro. Bravo is very pleasant 60 years old gentleman were suffering from peripheral polyneuropathy after multiple sessions of chemotherapy to treat laryngeal cancer. He also had laryngeal anatomy performed in the past and now he is breathing through the tracheostomy and he is feeding himself through the G-tube. He is on exuberant doses of methadone 125 mg daily and yet he reports severe intractable bilateral feet and lower leg burning, stinging, cramps, aching sensation. He was referred to our clinic to treat his condition with spinal cord stimulator. Today he came to the operating room to do a trial of Nevro spinal cord stimulator under local anesthesia because Anesthesiology department deemed his airway difficult and refused to anesthetize the patient. We were told that if patient would need to go for general anesthesia this needs to be done in tertiary care centers. Therefore we decided to perform this procedure under local anesthesia and if patient likes the procedure we can refer him to a tertiary center to perform implantation of the device. Risks and benefits were explained to the patient including bleeding, infection, peripheral nerve damage, spinal cord damage, headache. . Preoperatively patient received?? ? Cefazolin 2 g intravenously approximately? 30 minutes before the procedure.? After obtaining informed consent patient was brought to the operating room, she was positioned?? Prone on the operating table,? [employer] [employer] monitors were applied member of more nursing staff monitored the patient and helped with communication because patient can not talk without special device.. ? Time-out was performed delineating correct site, side, the nature of the procedure, patient's allergy, preoperative antibiotic if needed.? All operating room staff was participating in OR time-out procedure. Patient's entire back was prepped with ChloraPrep twice and draped with full body fenestrated drape.? Sterilely draped C-arm was brought over operating field and sqare picture of T11-T12, L1, L2 vertebrae as were demonstrated on the screen.?The decision was made to concentrate the attention on? T12-L1 interlaminar space.? The location of the projection of the right pedicle center of the? L2 vertebra was found on the skin using C-arm.? This location was injected with mixture of lidocaine 2% and Marcaine 0.5% 5 cc.? After that 11 blade was used to make a jose on the skin.? 10 cm 14 gauge introducer epidural needle was inserted through the jose and advanced to?? T12-L1 epidural interspace.? The advancement of the needle was performed on anterior posterior and lateral views.?DIGNA to air was used to detect epidural space. ? . the needle was advancing to were the? [id number] interspace on anterior posterior and lateral views.Guitar wire and loss of resistance technique were used to locate epidural space.? When guitar wire was spread in the epidural fashion, epidural lead was inserted through the needle and it was advanced to top T8 position PRACTICALLY at THE MIDLINE in the posterior epidural space.? Position of the lead was verified on the lateral view in the posterior epidural space. After that location of the projection of the LEFT pedicle center of the?? L2 vertebra was found on the skin using C-arm.? This location was injected with mixture of lidocaine 2% and Marcaine 0.5% 5 cc.? After that 11 blade was used to make a jose on the skin.? 10 cm 14 gauge? introducer epidural needle was inserted through the jose and advanced to T12-L1 epidural interspace. . The advancement of the needle was done on AP and lateral views, DIGNA to air was used to detect epidural space, guitar wire was advanced to the needle and was spreading in epidural fashion and after that epidural stimulation lead was inserted through the needle and attempt was made to advance the epidural lead next to the existing epidural lead in the posterior epidural space. Patient was getting more restless because of the epidural adhesions of the left side patient experienced jerk like sensation in bilateral lower extremities with the attempts of needle advancement. The decision was made to change the insertion of the needle positioned 1st on the left L1-L2 interspace, the epidural space was reached without complications, however again advancement was very difficulty. One more attempt was performed to T11-T12 epidural space on the right side however even there advancement of the epidural lead was difficult and eventually ended up in anterior epidural space. At this moment patient was growing more and more restless only operating table. It looks like that he was not able to tolerate the procedure. He experienced pain from his G-tube port which was pressing on his stomach. He was moving under table and it was complicating further manipulation of the epidural lead, it compromise the images and therefore made procedure risky. At this moment we decided to stop procedure and do the trial on 1 lead only. The epidural needles were withdrawn anchoring device was advanced over the existing epidural lead and stitch to the skin using 2 0-0 silk sutures. After that the fixating screw was turned until 3 clicks were heard. Upon completion of the fixation the lead was connected to the stimulating device, sterile dressings including bacitracin 4x4s and Tegaderm were applied to cover the entire area of the procedure. Patient tolerated procedure well, he became better after we turned him on his back and transfer him to PACU.
[2025-07-01 10:19] LABS: MRSA Nasal PCR NEGATIVE (Negative); SA Nasal PCR POSITIVE (Negative)
== END 2025-07-01 10:31 | disposition home or self-care (01) ==
PROVIDERS: Registered Nurse Emergency; PCP Internal Medicine; Visit Provider Anesthesiology
PROC: (CPT 63650; principal; 2025-07-01 07:30)
DX: M54.16 Radiculopathy, lumbar region (principal); G89.4 Chronic pain syndrome; C32.9 Malignant neoplasm of larynx, unspecified; Z90.02 Acquired absence of larynx; G62.0 Drug-induced polyneuropathy; T45.1X5A Adverse effect of antineoplastic and immunosuppressive drugs, initial encounter; Z92.3 Personal history of irradiation; G89.29 Other chronic pain; M54.2 Cervicalgia; Z79.891 Long term (current) use of opiate analgesic; Z93.0 Tracheostomy status; Z93.1 Gastrostomy status; F33.2 Major depressive disorder, recurrent severe without psychotic features; Z88.8 Allergy status to other drugs, medicaments and biological substances; Z88.5 Allergy status to narcotic agent; K21.9 Gastro-esophageal reflux disease without esophagitis; J44.9 Chronic obstructive pulmonary disease, unspecified
CPT/HCPCS: 63650 ×2; 87640; 87641; C1889; C1897; J0690; J0736; J2003; J2795

== ENCOUNTER → 2025-07-01 05:58 | Outpatient (BNV) | payer MEDICAID, SELFPAY | PROVIDERS: PCP Internal Medicine; Visit Provider Anesthesiology | DX: G62.0 Drug-induced polyneuropathy (principal) | CPT/HCPCS: 63650 ==

== ENCOUNTER 2025-07-07 09:55 | Outpatient (AMB) | payer MEDICAID, SELFPAY ==
--- NOTE | 2025-07-07 10:05 | MHC.OFFVIS ---
Vital Signs 07/07/25 10:06 Weight 240 lb BP 146/69 H Blood Pressure Location Lt brachial Respiration 18 Pulse 67 Pulse Source Pulse Oximeter Pulse Oximetry (%) 97 Oxygen Delivery Method Room Air Intake Visit Reasons: S/p Nevro SCS Trial 07/01/25 Allergies lisinopril Allergy (Unknown, Verified 07/07/25 10:05) Swelling HPI Comments Details: Lawrence is in my office after trial of Nevro SCS. He reports that working of the device produced numbness in bilateral feet. However he denies any help from the device. He stated that despite the sensation of numbness in bilateral feet he still felt pain resulting in burning, pins and needles, aching sensation. He denies any muscular weakness in bilateral lower extremities. Therefore this patient will not be a good candidate for the implantation of Nevro SCS. I recommended him to discuss with primary care physician escalation of the dose of gabapentin or switching from gabapentin to Lyrica in the order to help polyneuropathy pain in bilateral lower extremities. The dressing was removed today and the epidural lead was disconnected from the battery. The area of the epidural lead was prepped with ChloraPrep and anchoring sutures were severed using 15 blade scalpel. After that the epidural lead was removed tip was intact. No pathological discharge from the puncture was observed. No swelling, no redness, no tenderness on palpation. The patient is a 59-year-old male presenting with chemotherapy-induced peripheral neuropathy and chronic pain. His neuropathy began before chemotherapy but became severe following the treatment in February 2023. The patient reports burning and tingling pain in his feet, unrelieved by current pharmacological treatments such as gabapentin, methadone, and oxycodone. The pain, described as debilitating, has been progressive and impacts his functional ability. Prior treatments have been ineffective, and the patient has not worked since his symptoms intensified. The neuropathy is attributed to chemotherapy-induced nerve damage, a recognized complication of such treatment protocols. Recent EMG reviewed, results as per below - Onset and Timing: Initiated pre-chemotherapy but worsened significantly post-treatment in February 2023. - Quality and Character: Burning and tingling sensations. - Primary Location: Feet. - Areas of Radiation: Not specified beyond feet. - Exacerbating Factors: Progressive worsening noted, unresponsive to currently administered medications. - Relieving Factors: None identified; current pharmacotherapy ineffective. - Interference with Activities: Significant impact on daily activities and work capability, unrelieved at present with existing treatment modalities. - Affect: Persistent and debilitating pain negatively influencing patient?s life quality. - Analgesia: Current regimen includes gabapentin, methadone, and oxycodone; all providing inadequate relief. - Adverse Effects: No specific side effects reported from current medications. - Activities of Daily Living: Severely impacted, with patient unable to return to work; goal is to alleviate pain to regain functional capability. - Aberrant Drug-Related Behaviors: No aberrant behaviors reported or indicated in medication usage. 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 Lymphatic edema PTSD (post-traumatic stress disorder) Bronchitis SCC (squamous cell carcinoma) Hearing loss Eczema Depression Anxiety Severe episode of recurrent major depressive disorder Fistula GERD (gastroesophageal reflux disease) Dehiscence of wound Squamous cell carcinoma of larynx Osteoarthritis Hypertension Hypercholesterolemia COPD (chronic obstructive pulmonary disease) Simple chronic bronchitis Surgical History (Updated 06/29/25 @ 15:17 by Hailey Tam RN) S/P percutaneous endoscopic gastrostomy (PEG) tube placement Hx of tracheostomy Hx of skin graft History of abdominal wall debridement History of radical neck dissection (~01/27/24) Hx of tonsillectomy History of esophagogastroduodenoscopy (EGD) Hx of tooth extraction Hx of laryngectomy (~03/15/24) Social History Comment: cold pack applied Patient Tobacco Use Status: Former Tobacco user Substance Use Type: Other Review of Systems Const All systems reviewed & are unremarkable except as noted in HPI and below Physical Exam Vital Signs: Last Vital Signs Pulse 67 07/07/25 10:06 Resp 18 07/07/25 10:06 BP 146/69 H 07/07/25 10:06 Pulse Ox 97 07/07/25 10:06 Oxygen Delivery Method Room Air 07/07/25 10:06 General: awake, alert, oriented. Answers questions appropriately. Fully engaged in examination. Skin: warm, dry, intact. Scars from previous surgeries on the chest and left side neck. Lymphatic: Evidence of lymphedema in the neck area. HEENT: Normocephalic. Hearing intact. +Trach. Cardiac: External chest normal in appearance. Respiratory: No cough, audible wheezing or stridor. Abdomen: without gross distension. +feeding tube. MS: No obvious swelling or deformities. Neurological: Oriented to person, place, time and situation. Thought process intact. No gait abnormalities appreciated. Psychiatric: Appropriate mood and affect. Good judgment and insight. Assessment & Plan Assessment & Plan (1) Chronic pain syndrome: Code(s): G89.4 - Chronic pain syndrome Category: Medical (2) Anterior neck pain: Code(s): M54.2 - Cervicalgia Category: Medical (3) Other chronic postoperative pain: Code(s): G89.28 - Other chronic postprocedural pain Category: Medical (4) Peripheral neuropathy: Code(s): G62.9 - Polyneuropathy, unspecified Category: Medical (5) Lumbar radiculopathy: Code(s): M54.16 - Radiculopathy, lumbar region Category: Medical (6) Chemotherapy-induced neuropathy: Code(s): G62.0 - Drug-induced polyneuropathy; T45.1X5A - Adverse effect of antineoplastic and immunosuppressive drugs, initial encounter Category: Medical Plan For the treatment of chemotherapy-induced peripheral neuropathy of this patient is scheduled for Nevro spinal cord stimulator. The trial of Nevro spinal cord stimulator resulted in no pain improvement although provide significant numbness in bilateral lower extremities. Patient still reports pain on the background of numbness. Therefore implantation of the Nevro SCS is not indicated for this patient. The epidural lead was removed as above. No sign of the infections or bleeding was observed. Patient is recommended to discuss with primary care physician increasing of the dose of the gabapentin or switching him to pregabalin/Lyrica. Coding Level of Care Code Est Pt Level 3 (77418) Diagnoses Chronic pain syndrome G89.4 Anterior neck pain M54.2 Other chronic postoperative pain G89.28 Peripheral neuropathy G62.9 Lumbar radiculopathy M54.16 Chemotherapy-induced neuropathy G62.0; T45.1X5A
[2025-07-07 10:06] VITALS: BP 146/69; PULSE 67; RESP 18; O2SAT 97
== END 2025-07-07 10:18 | disposition home or self-care (01) ==
LOC: HO.PMC 09:56
PROVIDERS: PCP Internal Medicine; Visit Provider Anesthesiology
DX: G89.4 Chronic pain syndrome (principal); M54.2 Cervicalgia; G89.28 Other chronic postprocedural pain; G62.9 Polyneuropathy, unspecified; M54.16 Radiculopathy, lumbar region; G62.0 Drug-induced polyneuropathy; T45.1X5A Adverse effect of antineoplastic and immunosuppressive drugs, initial encounter
CPT/HCPCS: 99024

== ENCOUNTER → 2025-07-07 09:55 | Outpatient (BNVA) | payer MEDICAID, SELFPAY | PROVIDERS: PCP Internal Medicine; Visit Provider Anesthesiology | DX: G89.4 Chronic pain syndrome (principal); M54.2 Cervicalgia; G62.9 Polyneuropathy, unspecified; M54.16 Radiculopathy, lumbar region; G62.0 Drug-induced polyneuropathy | CPT/HCPCS: 99212 ==

== ENCOUNTER 2025-07-20 13:54 | Outpatient (AMB) | payer MEDICAID, SELFPAY ==
[2025-07-20 14:18] VITALS: BP 104/62; PULSE 70; O2SAT 96; BMI 43.0
--- NOTE | 2025-07-20 14:18 | A.OFFVIS_ITS ---
Vital Signs 07/20/25 14:18 Height 6 ft Weight 317 lb 2 oz BMI 43.0 BP 104/62 Blood Pressure Location Rt brachial Position Sitting Pulse 70 Pulse Source Pulse Oximeter Pulse Oximetry (%) 96 Oxygen Delivery Method Room Air Intake Visit Reasons: Bronchitis Allergies lisinopril Allergy (Unknown, Verified 07/20/25 14:22) Swelling HPI HPI Bronchitis: Details: Lawrence is a pleasant 60 year old male, former 25+ pack year smoker, quit 2022 with underlying h/o SCC of larynx s/p laryngectomy 02/2024 and chemo/radiation 2022, s/p PEG, COPD, HTN, atopic dermatitis on Dupixent and GERD. He was referred by PCP for pulmonary evaluation and is accompanied by his mother. Patient presenting with dyspnea, particularly in the mornings. He reports checking his oxygen levels 5 to 10 times a day, with levels sometimes dropping to 74% at rest. He has not been on home oxygen therapy, although he has used it in the hospital. He reports undergoing 6MWT in the past without becoming hypoxic and has been evaluated through [facility] ED on multiple occasions with no hypoxia noted. The patient has a history of COPD, reports experiencing difficulty breathing when lying flat and uses a hospital bed to alleviate this. No h/o CHF, no prior echo. Endorses BLE edema. He has undergone multiple tests, including a PET scan in November, which did not reveal any remarkable abnormalities, other than inflammatory changes near tracheostomy as well as stable subcentimeter pulmonary nodules, report below. He is under the care of Dr. Ronaldo Sutherland, Pipe Fitter [employer] Pipe at [facility]. Reviewed prior records which report patient diagnosed with SCC of the larynx after mass detected on MBSS in 2022. He underwent chemo/radiation through [facility] received Cisplatin weekly 05/26/2023 to 07/01/2023 and RT 05/26/2023 to 07/24/2023. Cervical lymph node surgery 01/27/2024 and laryngectomy 02/2024. The patient has a stoma, which he reports affects his breathing and contributes to his dyspnea. He reports increased mucus production, which is yellowish in color over the last month or two, and uses a portable suction machine constantly to manage this. He reports since undergoing laryngectomy he has been unable to obtain new supplies for cannula or suction due to insurance denials. [facility] is where the portable suction is from and he uses a 16 macedonian catheter instead of the typical suction catheter. There was also note from [facility] ED which stated patient has significant fear of the stoma closing and has used various objects to further open stoma, likely introducing bacteria frequently. REPLACED BY [facility] Medical History (Updated 07/25/25 @ 15:45 by Kat Bianchi NP) Hx of radiation therapy History of chemotherapy intermediate use of opioid Lymphatic edema PTSD (post-traumatic stress disorder) Bronchitis SCC (squamous cell carcinoma) Hearing loss Eczema Depression Anxiety Severe episode of recurrent major depressive disorder Fistula GERD (gastroesophageal reflux disease) Dehiscence of wound Squamous cell carcinoma of larynx Osteoarthritis Hypertension Hypercholesterolemia COPD (chronic obstructive pulmonary disease) Simple chronic bronchitis Surgical History (Updated 07/25/25 @ 10:04 by Kat Bianchi NP) S/P percutaneous endoscopic gastrostomy (PEG) tube placement Hx of tracheostomy Hx of skin graft History of abdominal wall debridement History of radical neck dissection (~01/27/24) Hx of tonsillectomy History of esophagogastroduodenoscopy (EGD) Hx of tooth extraction Hx of laryngectomy (~03/15/24) Social History Comment: cold pack applied Patient Tobacco Use Status: Former Tobacco user Substance Use Type: Other Review of Systems Const Denies chills, Denies excessive sweating, Denies fever(s), Denies headache(s) and Denies night sweats Eyes Denies irritation and Denies itchy eyes ENT Reports Normal hearing present, Denies headache(s), Denies nasal congestion, Denies nasal discharge and Denies post nasal drip Card Denies chest pain, Denies chest pain at rest, Denies chest pain with activity, Denies claudication and Denies paroxysmal nocturnal dyspnea Resp Denies pain on inspiration, Denies pain with cough, Denies stridor and Denies wheezing Musc Denies myalgias Neuro Reports Normal hearing present and Denies headache(s) Endo Denies excessive sweating Jasson/Lymph Denies lymphadenopathy Aller/Immun Denies itchy eyes, Denies seasonal rhinorrhea and Denies wheezing Physical Exam Vital Signs: Last Vital Signs Pulse 70 07/20/25 14:18 BP 104/62 07/20/25 14:18 Pulse Ox 96 07/20/25 14:18 Oxygen Delivery Method Room Air 07/20/25 14:18 BMI result Body Mass Index 43.0 Const General: cooperative, comfortable, no acute distress, alert and tired appearing Nutritional Appearance: obese Orientation/consciousness: patient oriented x3 Limitations: no limitations HEENT Head: Yes normal to inspection, Yes normocephalic and Yes atraumatic Ears: hearing grossly normal bilaterally and external ears normal Eyes Eyelids: Yes eyelids normal EOM: EOMs intact bilaterally Neck Other: stoma intact with mild erythema, no drainage noted cannula in place Neck: Yes tracheostomy present Chest Chest palpation & inspection: normal inspection of the chest Resp Effort & Inspection: normal respiratory effort, able to speak in complete sentences (with the use of electrolarynx), no audible wheezes, no cough, no stridor, not tachypneic, no tripod positioning and no use of accessory muscles Auscultation: diminished lung sounds Cardio Jugular venous distension: no JVD Rate: regular rate Rhythm: regular rhythm Skin Other: warm, dry General skin exam: no rashes or lesions noted Neuro General: patient oriented x3 Cranial nerves: Yes Normal hearing present Cognition (Neuro): normal cognition Gait exam (Neuro): Normal gait present Extrem Other: 1+ pedal edema bilaterally Psych Appearance: grossly normal and well kempt Speech and movement: Normal speech and movement present and Clear speech present Affect: normal affect Attitude: cooperative Thought process: Normal thought process present Thought content: Normal thought content present Insight: Good insight present (Psych) Judgement: Good judgement present (Psych) Results Reviewed Results Reviewed: RESULT: CT PET AI Skull Base to Mid Thigh [facility] PET/CT Imaging VISIT NUMBER :[id number] Patient Name: Lawrence Childers Date of : 1965 Date of Exam: 12-09-2024 Referring Physician: Troy Mccoy [address] [address] Exam: PT SUBTLE Skull Base to Mid Thigh CPT 19501 Room Description: [facility] Pt4 PT SUBTLE Skull Base to Mid Thigh CPT 85034 History: RE-STAGING acquired absence of larynx Comparison: PET/CT 03/11/2024. CT neck 07/16/2024. PET technique: Beginning approximately 60 minutes following the intravenous administration of 11.0 mCi of F-18 fluorodeoxyglucose in the right wrist, emission images were obtained from the skull vertex to the mid thighs. Following this CT was obtained at the same levels without IV or oral contrast with the patient maintaining quiet breathing. Following attenuation correction using the CT images, axial sagittal and coronal images were reconstructed. SUV values normalized by body mass. The blood glucose at the time of injection was 101 mg/dL. Findings: Internal Reference Values: Ascending aortic blood pool: SUV mean 1.7, SUV max 2.5. Right hepatic lobe: SUV mean 2.4, SUV max 3.4. Head/neck: Status post laryngectomy and tracheostomy. Moderate uptake along the tracheostomy with SUV max 4.[address] correlate. Uptake in the paraspinal musculature may be physiologic or due to muscle strain. No other abnormal uptake. No enlarged or FDG-avid cervical lymph nodes. Unremarkable appearance of the thyroid. Chest: No FDG-avid lung lesion. Mild emphysema. A few 3-4 mm solid lung nodules are too small to characterize but unchanged in size. No pleural or pericardial effusion. No enlarged or FDG-avid supraclavicular, mediastinal, hilar, or axillary lymph nodes. Abdomen/pelvis: No evidence of FDG-avid malignancy. Percutaneous gastrostomy tube in place with mild tracer uptake along its tract, presumably inflammatory. The liver, gallbladder, spleen, pancreas, kidneys and adrenals appear normal. No ascites. No enlarged or FDG-avid lymph nodes in the abdomen or pelvis. Soft tissues: Bilateral gynecomastia. Osseous structures: No abnormal FDG uptake. Impression: Moderate tracer uptake along the tracheostomy is most likely inflammatory. Otherwise, no evidence of FDG-avid malignancy. Electronically Signed By: Saul Edwards MD Reason For Exam RE-STAGING acquired absence of larynx;RE-STAGING acquired absence of larynx Signature Line Dictated By: Not on Staff LISA MD Dictated Date/Time: 12/09/24 1:29 pm Reviewed By: Not on Staff LISA MD Signed By: Not on Staff LISA MD Signed Date/Time: 12/09/24 1:29 pm Transcribed By: LISA Assessment & Plan Assessment & Plan (1) History of laryngeal cancer: Code(s): Z85.21 - Personal history of malignant neoplasm of larynx Category: Medical (2) COPD (chronic obstructive pulmonary disease): Code(s): J44.9 - Chronic obstructive pulmonary disease, unspecified Category: Medical (3) Dyspnea: Code(s): R06.00 - Dyspnea, unspecified Category: Medical (4) S/P laryngectomy: Code(s): Z90.02 - Acquired absence of larynx Category: Surgical Plan Lawrence presents for pulmonary evaluation for reported hypoxia and h/o chronic bronchitis laryngeal cancer s/p laryngectomy. He reports significant increase in sputum production which he manages with suction, yellowish green in color for th e past two months. Will treat with Augmentin. He is aware to call if symptoms do not improve. Encouraged patient to continue to use nebulized therapy PRN. Patient poor historian will attempt to obtain records from [facility]. Unclear why patient has been unable to obtain supplies for suction, will need to set up with local [employer] company. Patient reports findings of hypoxia at home and worsening dyspnea, will send for chest CT to assess for any parenchymal conditions contributing to hypoxia. Will arrange 6MWT in the [place] office, patient not hypoxic or in respiratory distress today. Patient also reports significant orthopnea as well as BLE edema, will send for echo to assess for cardiac contribution. All questions were answered and patient is in agreement of plan. Will follow up with Dr. Ayala in 6-8 weeks. Orders: Orders CT chest wo IV con Today R09.02 - Hypoxemia, Z85.21 - Personal history of malignant neoplasm of larynx, Z90.02 - Acquired absence of larynx CA echo transthoracic complete Today R06.00 - Dyspnea, unspecified, R09.02 - Hypoxemia Medications: New amoxicillin-pot clavulanate 400-57 mg/5 mL 10 mL PO BID 200 mL 0RF Coding Level of Care Code New Pt Level 4 (84008) Complex EM visit Add On G2211 Diagnoses History of laryngeal cancer Z85.21 COPD (chronic obstructive pulmonary disease) J44.9 Dyspnea R06.00 S/P laryngectomy Z90.02
--- OUTSIDE RECORDS SUMMARY | 2025-07-20 16:24 | XMS_ITS | Encounter Summary ---
Author Organization [employer] Address [address] [facility] 7 [place] [address] Care Team Providers Care Bonding Machine Operator Name Role Phone Chato Thomason MD Primary Care Provider [phone] Kelsey Minaya Unavailable Reason for Visit * Reason Onset Date Comments Referral 03/27/2023 Encounter Details Date Type Department Care Team (Late st Contact Info) Description 03/27/2023 Telephone [facility] MEDICINE [address] [place] [address] Chato Thomason MD [address] [place], [place] [phone] Referral Social History Tobacco Use Types Packs/Day [...] - 03/27/2023 2:43 PM EDT Tc from [facility] requesting a referral. Date: 03/31/2023 Time: 10:15 AM Location: [address] [place] [address] Specialty: [facility] Hematology Oncology NPI Facility: [id number] Department: [id number] DX: Squamous cell Carcinoma of Epiglottis Phone #: [phone] Fax #: [phone] documented in this encounter Plan of Treatment Upcoming Encounters Date Type Department Care Team (Late st Contact Info) Description 07/27/2025 1:30 PM EDT Office Visit [facility] ADULT DENTAL [address] [place] [address] Joe Nash DMD [address] [place] [address] 07/28/2025 11:00 AM EDT Clinical Support [facility] MED & PEDS [address] [place] [address] Linda Pelaez RN [address] [place] [address] 08/11/2025 10:30 AM EDT Office Visit [facility] MED & PEDS [address] [place] [address] Chato Thomason MD [address] [place] [address] 09/12/2025 1:30 PM EST Telemedicine [facility] MED & PEDS [address] [place] [address] Linda Pelaez RN [address] [place] [address] documented as of this encounter Visit Diagnoses Not on filedocumented in this encounter Care Teams Bonding Machine Operator Relationship Specialty Start Date End Date Chato Thomason MD [address] [place] [address] PCP - General Internal Medicine 10/27/18 Kelsey Minaya Community Health Worker 06/08/2407/07 Eliane Metzger Electrician WiringFerryboat Ticket Taker 01/29/24 07/08/24 Mackenzie Roland Electrician Wiring 07/09/24 Angela Pozo Electrician Wiring 07/09/24 06/12/25 [facility] 06/12/23 Ezekiel Patricia Electrician WiringFerryboat Ticket Taker 06/13/25 documented as of this encounter
--- OUTSIDE RECORDS SUMMARY | 2025-07-20 16:24 | XMS_ITS | Encounter Summary ---
Author Organization [employer] Address [address] [place] [address] 7t [place] [address] Care Team Providers Care Territory Sales Representative Name Role Phone Chato Thomason MD Primary Care Provider [phone] Encounter Details Date Type Department Care Team ([facility] st Contact Info) Description 05/11/2025 Orders Only [facility] CH[facility] MED & PEDS [address] [place], [place] [phone] Chato Thomason MD [address] [place], [place] [phone] Social History Tobacco Use Types Packs/Day Years [...] Description 07/27/2025 1:30 PM EDT Office Visit [facility] ADULT DENTAL [address] [place] [address] Joe Nash DMD [address] [place] [address] 07/28/2025 11:00 AM EDT Clinical Support [facility] MED & PEDS [address] [place] [address] Linda Pelaez RN [address] [place] [address] 08/11/2025 10:30 AM EDT Office Visit [facility] MED & PEDS [address] [place] [address] Chato Thomason MD [address] [place] [address] 09/12/2025 1:30 PM EST Telemedicine [facility] MED & PEDS [address] [place] [address] Linda Pelaez RN [address] [place] [address] documented as of this encounter Visit Diagnoses Not on filedocumented in this encounter Additional Health Concerns Assessment Noted Time PHQ-9 Depression Total Score: 19 024 3:44 PM EDT documented as of this encounter Care Teams Territory Sales Representative Relationship Specialty Start Date End Date Chato Thomason MD [address] [place] [address] PCP - General Internal Medicine 10/27/18 Mackenzie Roland Channel Machine Operator 07/09/24 Angela Pozo Channel Machine Operator 07/09/24 06/12/25 [facility] 06/12/23 Ezekiel Patricia Channel Machine OperatorChurn Driller 06/13/25 documented as of this encounter
--- OUTSIDE RECORDS SUMMARY | 2025-07-20 16:24 | XMS_ITS | Encounter Summary ---
Author Organization [employer] Address [address] [facility] 7t [place] [address] Care Team Providers Care Nike Athlete Name Role Phone Chato Thomason MD Primary Care Provider [phone] Encounter Details Date Type Department Care Team ([facility] st Contact Info) Description 10/04/2024 Orders Only [facility] CHC MED & PEDS [address] [place], [place] [phone] Provider, MD Colleen Social History Tobacco Use [...] Visit [facility] ADULT DENTAL [address] [place] [address] Joe Nash DMD [address] [place] [address] 07/28/2025 11:00 AM EDT Clinical Support [facility] MED & PEDS [address] [place] [address] Linda Pelaez RN [address] [place] [address] 08/11/2025 10:30 AM EDT Office Visit [facility] MED & PEDS [address] [place] [address] Chato Thomason MD [address] [place] [address] 09/12/2025 1:30 PM EST Telemedicine [facility] MED & PEDS [address] [place] [address] Linda Pelaez RN [address] [place], [place] documented as of this encounter Procedures Procedure [...] documented as of this encounter Care Teams Nike Athlete Relationship Specialty Start Date End Date Chato Thomason MD [address] [place] [address] PCP - General Internal Medicine 10/27/18 Mackenzie Roland Milk Bottling Machine Operator 07/09/24 Angela Pozo Milk Bottling Machine Operator 07/09/24 06/12/25 [facility] 06/12/23 Ezekiel Patricia Milk Bottling Machine OperatorDirect Service Worker 06/13/25 documented as of this encounter
--- OUTSIDE RECORDS SUMMARY | 2025-07-20 16:24 | XMS_ITS | Encounter Summary ---
Author Organization [employer] Address [address] [place] [address] Care Team Providers Care Mounter Brass Wind Instruments Name Role Phone Chato Thomason MD Primary Care Provider [phone] Reason for Referral * Consultation (Routine) - Closed Specialty Diagnoses / Procedures Referred By Maryana singh Referred To Contact Ophthalmology Diagnoses Primary hypertension Chato Thomason MD [address] [place] [address] Phone: tel: fax: [facility] [address] [place] [address] Phone: tel:[phone] fax: Referral ID Status Reason Start Date Expiration Date V isits Requested Visits Authorized [id number] Closed Specialty Services Required 10/01/2024 10/01/2025 1 1 * Consultation (Urgent) - Closed Specialty Diagnoses / Procedures Referred By Maryana singh Referred To Contact Pharmacy Diagnoses Spongiotic dermatitis Chronic bronchitis, unspecified chronic bronchitis type ([facility]/HCC) Hypercholesterolemia Primary hypertension Chato Thomason MD [address] [place] [address] Phone: tel: fax: Referral ID Status Reason Start Date Expiration Date V isits Requested Visits Authorized [id number] Closed Continuity of Care 10/01/2024 10/01/2025 6 6 Encounter Details Date Type Department Care Team (Late st Contact Info) Description 10/01/2024 Orders Only [facility] CH[facility] MED & PEDS [address] [place] [address] Chato Thomason MD [address] [place] [address] Spongiotic dermatitis (Primary Dx); Chronic bronchitis, unspecified [...] ([facility] Contact Info) Description 07/27/2025 1:30 PM EDT Office Visit [facility] ADULT DENTAL [address] [place] [address] Joe Nash DMD [address] [place] [address] 07/28/2025 11:00 AM EDT Clinical Support [facility] MED & PEDS [address] [place] [address] Linda Pelaez RN [address] [place] [address] 08/11/2025 10:30 AM EDT Office Visit [facility] MED & PEDS [address] [place] [address] Chato Thomason MD [address] [place] [address] 09/12/2025 1:30 PM EST Telemedicine [facility] MED & PEDS [address] [place] [address] Linda Pelaez RN [address] [place] [address] Scheduled Referrals Name Type Priority Associated Diagnoses Orde r Schedule Referral to Pharmacy MT Outpatient Referral Urgent Spongiotic dermatitis Chronic bronchitis, [...] documented as of this encounter Care Teams Mounter Brass Wind Instruments Relationship Specialty Start Date End Date Chato Thomason MD [address] [place] [address] PCP - General Internal Medicine 10/27/18 Mackenzie Roland Core Placer 07/09/24 Angela Pozo Core Placer 07/09/24 06/12/25 [facility] 06/12/23 Ezekiel Patricia Core PlacerMarina Porter 06/13/25 documented as of this encounter
--- OUTSIDE RECORDS SUMMARY | 2025-07-20 16:24 | XMS_ITS | Encounter Summary ---
Author Organization [employer] Address [address] [facility] 7t [place] [address] Care Team Providers Care Pipe Organ Technician Name Role Phone Chato Thomason MD Primary Care Provider [phone] Reason for Visit * Reason Comments Med Refill Encounter Details Date Type Department Care Team ([facility] st Contact Info) Description 04/25/2025 Refill [facility] MEDICINE [address] [place] [address] Chato Thomason MD [address] [place], [place] [phone] Anxiety Social History Tobacco Use Types Packs/Day [...] 1:30 PM EDT Office Visit [facility] ADULT DENTAL [address] [place] [address] Joe Nash DMD [address] [place] [address] 07/28/2025 11:00 AM EDT Clinical Support [facility] MED & PEDS [address] [place] [address] Linda Pelaez RN [address] [place] [address] 08/11/2025 10:30 AM EDT Office Visit [facility] MED & PEDS [address] [place] [address] Chato Thomason MD [address] [place] [address] 09/12/2025 1:30 PM EST Telemedicine [facility] MED & PEDS [address] [place] [address] Linda Pelaez RN [address] [place] [address] documented as of this encounter Visit Diagnoses Diagnosis Anxiety Anxiety state, unspecified documented in this encounter Additional Health Concerns Assessment Noted Time PHQ-9 Depression Total Score: 19 024 3:44 PM EDT documented as of this encounter Care Teams Pipe Organ Technician Relationship Specialty Start Date End Date Chato Thomason MD [address] [place] [address] PCP - General Internal Medicine 10/27/18 Mackenzie Roland Neck Band Setter 07/09/24 Angela Pozo Neck Band Setter 07/09/24 06/12/25 [facility] 06/12/23 Ezekiel Patricia Neck Band SetterManager Appointment 06/13/25 documented as of this encounter
--- OUTSIDE RECORDS SUMMARY | 2025-07-20 16:24 | XMS_ITS | Encounter Summary ---
Author Organization [employer] Address [address] [facility] 7t [place] [address] Care Team Providers Care Vault Attendant Name Role Phone Chato Thomason MD Primary Care Provider [phone] Encounter Details Date Type Department Care Team ([facility] st Contact Info) Description 07/22/2024 Orders Only [facility] CH[facility] MED & PEDS [address] [place], [place] [phone] Chato Thomason MD [address] [place], [place] [phone] Anxiety Social History Tobacco Use Types Packs/Day [...] t he electric, gas, oil or water Ayas[employer] threatened to shut off services in your [...] Description 07/27/2025 1:30 PM EDT Office Visit [facility] ADULT DENTAL [address] [place] [address] Joe Nash DMD [address] [place] [address] 07/28/2025 11:00 AM EDT Clinical Support [facility] MED & PEDS [address] [place] [address] Linda Pelaez, WALT [address] [place] [address] 08/11/2025 10:30 AM EDT Office Visit [facility] MED & PEDS [address] [place] [address] Chato Thomason MD [address] [place] [address] 09/12/2025 1:30 PM EST Telemedicine [facility] MED & PEDS [address] [place] [address] Linda Pelaez, WALT [address] [place], [place] documented as of this encounter Visit Diagnoses Diagnosis Anxiety Anxiety state, unspecified documented in this encounter Care Teams Vault Attendant Relationship Specialty Start Date End Date Chato Thomason MD [address] [place] [address] PCP - General Internal Medicine 10/27/18 Mackenzie Roland Bleach Mixer 07/09/24 Angela Pozo Bleach Mixer 07/09/24 06/12/25 [facility] 06/12/23 Ezekiel Patricia Bleach MixerMachine Puller 06/13/25 documented as of this encounter
--- OUTSIDE RECORDS SUMMARY | 2025-07-20 16:24 | XMS_ITS | Clinical Summary ---
Author Organization [address] [facility] Address [address] [place] [address] Phone Care Team Providers Care Clip Loading Machine Adjuster Name Role Phone Physician, No Pcp Primary Care Provider Unavaila ble Active Problems Problem Noted Date Diagnosed Date Lymphatic edema 09/30/2024 Encounters Date Type Department Care Team Description 07/11/2025 1:30 PM EDT Treatment [facility] [address] [place] [phone] Philip Botelloa P, OTR/L Lymphatic edema (Primary Dx) 05/16/2025 1:30 PM EDT Treatment [facility] [address] [place] [phone] Gijtaco, Nilam P, OTR/L Lymphedema of face (Primary Dx) 05/03/2025 11:00 AM EDT Treatment [facility] [address] [place] [phone] oDdiejtaco Nilam P, OTR/L Lymphedema of face (Primary Dx) 04/28/2025 1:00 PM EDT Evaluation [facility] [address] [place] [address] [phone] Dodiejtaco Nilam P, OTR/L Lymphedema of face (Primary Dx) 04/28/2025 Plan of Care Documentation [facility] [address] [place] [address] [phone] from Last 3 Months Social History Tobacco [...] Care Team (Late st Contact Info) Description 08/02/2025 1:30 PM EDT Treatment [facility] Occupational Therapy [address] [place] [address] [phone] Gijzen Nilam P, OTR/L 08/10/2025 2:30 PM EDT Treatment [facility] Occupational Therapy [address] [place] [address] [phone] Gijzen, Nilam P, OTR/L 08/16/2025 1:30 PM EDT Treatment [facility] Occupational Therapy [address] [place] [address] [phone] Gijzen, Nilam P, OTR/L Health Maintenance Due Date Last [...] Type Associated Problems Recent Progress Patient-Stated? Author lymph edema/ fibrosis General Improving( 2:26 PM EDT) No Nilam Botello, OTR/L Note: [...] fibrosis in sub mandible area and cheeks 07/11/2025 Patient presents with decreased lymph edema /fibrosis in his neck /cheeks I want to feel less tight in my neck General Worsening( 2:25 PM EDT) Yes Nilam Botello P, OTR/L Note: Patient will be able to demo HEP to increase neck ROM Patient will present with increased neck extension of at least 15 degrees ( which he measured 01/25/2025) I want to be more comfortable to sleep General No change(07/11 2:25 PM EDT) Yes Nilam Botello P, OTR/L Note: Patient reports increased ability to sleep resulting from decreased tissue tightness/ lymph edema Insurance MEDICAID - [place] Care Teams Clip Loading Machine Adjuster Relationship Specialty Start Date End Date Physician, No Pcp PCP - General 09/22/24
--- OUTSIDE RECORDS SUMMARY | 2025-07-20 16:24 | XMS_ITS | Encounter Summary ---
Author Organization [employer] Address [address] [place] [address] [address] [place] [address] Care Team Providers Care Kiss Setter Hand Name Role Phone Chato Thomason MD Primary Care Provider [phone] Encounter Details Date Type Department Care Team ([facility] st Contact Info) Description 04/25/2025 Orders Only [facility] [address], [place] [phone] Chato Thomason MD [address] [place], [place] [phone] Anxiety Social History Tobacco Use Types Packs/Day [...] Description 07/27/2025 1:30 PM EDT Office Visit [facility] [address] [place] [address] Joe Nash DMD [address] [place] [address] 07/28/2025 11:00 AM EDT Clinical Support [facility] MED [facility] PED[facility] [address] [place] [address] Linda Pelaez RN [address] [place] [address] 08/11/2025 10:30 AM EDT Office Visit [facility] MED [facility] [address] [place] [address] Chato Thomason MD [address] [place] [address] 09/12/2025 1:30 PM EST Telemedicine [facility] MED [facility]ED[facility] [address] [place] [address] Linda Pelaez RN [address] [place] [address] documented as of this encounter Visit Diagnoses Diagnosis Anxiety Anxiety state, unspecified documented in this encounter Additional Health Concerns Assessment Noted Time PHQ-9 Depression Total Score: 19 024 3:44 PM EDT documented as of this encounter Care Teams Kiss Setter Hand Relationship Specialty Start Date End Date Chato Thomason MD [address] [facility] [place] [address] PCP - General Internal Medicine 10/27/18 Mackenzie Roland [employer] 07/09/24 Angela Pozo [employer] 07/09/24 06/12/25 [facility] 06/12/23 Ezekiel Patricia [employer] Loan ProcessorReal Estate Developer 06/13/25 documented as of this encounter
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
--- OUTSIDE RECORDS SUMMARY | 2025-07-20 16:25 | XMS_ITS | Encounter Summary ---
Author Organization [employer] Address [address] [place] [address] [address] [place] [address] Care Team Providers Care Miller Kiln Dried Salt Name Role Phone Chato Thomason MD Primary Care Provider [phone] Reason for Visit * Reason Comments Med Refill Encounter Details Date Type Department Care Team ([facility] st Contact Info) Description 08/31/2024 Refill [facility] [address] [place], [place] [phone] Chato Thomason MD [address] [place], [place] [phone] Squamous cell carcinoma of larynx (CMS/HCC) (Primary [...] Upcoming Encounters Date Type Department Care Team ([facility] st Contact Info) Description 07/27/2025 1:30 PM EDT Office Visit [facility] [address] [place] [address] Joe Nash DMD [address] [place] [address] 07/28/2025 11:00 AM EDT Clinical Support [facility] [address] [place] [address] Linda Pelaez RN [address] [place] [address] 08/11/2025 10:30 AM EDT Office Visit [facility] [address] [place] [address] Chato Thomason MD [address] [place] [address] 09/12/2025 1:30 PM EST Telemedicine [facility] [address] [place] [address] Linda Pelaez RN [address] [place] [address] documented as of this encounter Visit Diagnoses Diagnosis 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, unspecified site Other insomnia Anxiety Anxiety state, unspecified History of laryngectomy Other postprocedural status documented in this encounter Additional Health Concerns Assessment Noted Time PHQ-9 Depression Total Score: 19 024 3:44 PM EDT documented as of this encounter Care Teams [employer] Relationship Specialty Start Date End Date Chato Thomason MD [address] [place] [address] PCP - General Internal Medicine 10/27/18 Mackenzie Roland Clay Products Machine Operator 07/09/24 Angela Pozo Clay Products Machine Operator 07/09/24 06/12/25 [facility] 06/12/23 Ezekiel Patricia Clay Products Machine OperatorShop Teacher 06/13/25 documented as of this encounter
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
--- OUTSIDE RECORDS SUMMARY | 2025-07-20 16:25 | XMS_ITS | Encounter Summary ---
Author Organization [employer] Address [address] [place] [address] 7 [place] [address] Care Team Providers Care Anatomy Professor Name Role Phone Chato Thomason MD Primary Care Provider +[phone] Kelsey Minaya Unavailable Encounter Details Date Type Department Care Team (Late st Contact Info) Description 12/04/2022 Abstract [facility] MEDICINE [address] [place], [place] [phone] Chato Thomason MD 505 [place], [place] [phone] Social History Tobacco Use Types Packs/Day Years [...] EDT Office Visit [facility] ADULT DENTAL [address] [place], [place] [phone] Joe Nash DMD [address] [place], [place] [phone] 07/28/2025 11:00 AM EDT Clinical Support [facility] MED & PEDS [address] [place], [place] [phone] Linda Pelaez, WALT 505 [place] [address] 08/11/2025 10:30 AM EDT Office Visit [facility] MED & PEDS [address] [place] [address] Chato Thomason MD 505 [place] [address] 09/12/2025 1:30 PM EST Telemedicine [facility] MED & PEDS [address] [place] [address] Linda Pelaez, WALT 505 [place] [address] documented as of this encounter Visit Diagnoses Not on filedocumented in this encounter Care Teams Anatomy Professor Relationship Specialty Start Date End Date Chato Thomason MD 505 [place] [address] PCP - General Internal Medicine 10/27/18 Kelsey Minaya Community Health Worker 06/08/2407/07 Eliane Metzger Black BeltAssociate Trainer 01/29/24 07/08/24 Mackenzie Roland Black Belt 07/09/24 Angela Pozo Black Belt 07/09/24 06/12/25 [facility] 06/12/23 Ezekiel Patricia Black BeltAssociate Trainer 06/13/25 documented as of this encounter
--- OUTSIDE RECORDS SUMMARY | 2025-07-20 16:25 | XMS_ITS | Encounter Summary ---
Author Organization [employer] Address [address] [place] [address] [place] [address] Care Team Providers Care Sweeper Driver Name Role Phone Chato Thomason MD Primary Care Provider [phone] Kelsey Minaya Unavailable Reason for Visit * Reason Onset Date Comments VNA Orders 07/28/2023 Encounter Details Date Type Department Care Team ([facility] Contact Info) Description 07/28/2023 Telephone [facility] CHC MED & PEDS [address] [place], [place] [phone] Chato Thomason MD [address] [place], [place] [phone] VNA Orders Social History Tobacco Use Types [...] Notes * Telephone Encounter - Bing Meza Harish - 07/28/2023 3:40 PM EDT Tc from [facility] requesting two VNA orders for: Face to Face Encounter Dated on 06/11/2023 (Please fax over office notes) Physician order Dated on 06/11/2023 Dixon states that orders have a 30 day time frame. Please fax over at [phone] Please If any questions please contact Anabela at [phone] documented in this encounter Plan of Treatment Upcoming Encounters Date Type Department Care Team (Late st Contact Info) Description 07/27/2025 1:30 PM EDT Office Visit [facility] ADULT [facility] [address] [place] [address] Joe Nash, KARIN [address] [place] [address] 07/28/2025 11:00 AM EDT Clinical Support [facility] MED [facility] PEDS [address] [place] [address] Linda Pelaez, WALT [address] [place], [place] 08/11/2025 10:30 AM EDT Office Visit [facility] MED [facility]ED[facility] [address] [place] [address] Chato Thomason MD [address] [place] [address] 09/12/2025 1:30 PM EST Telemedicine [facility] MED [facility] PEDS [address] [place] [address] Linda Pelaez, WALT 505 [place] [address] documented as of this encounter Visit Diagnoses Not on filedocumented in this encounter Care Teams Sweeper Driver Relationship Specialty Start Date End Date Chato Thomason MD [address] [place] [address] PCP - General Internal Medicine 10/27/18 Kelsey Minaya Community Health Worker 06/08/2407/07 Eliane Metzger Vocational Ed InstructorParts Remover 01/29/24 07/08/24 Mackenzie Roland Vocational Ed Instructor 07/09/24 Angela Pozo Vocational Ed Instructor 07/09/24 06/12/25 [facility] 06/12/23 Ezekiel Patricia Vocational Ed InstructorParts Remover 06/13/25 documented as of this encounter
--- OUTSIDE RECORDS SUMMARY | 2025-07-20 16:25 | XMS_ITS | Encounter Summary ---
Author Organization [employer] Address 75 [facility] 7 [place] [address] Care Team Providers Care Fund Accountant Name Role Phone Chato Thomason MD Primary Care Provider +1 [phone] Kelsey Minaay Unavailable Encounter Details Date Type Department Care Team ([facility] Contact Info) Description 08/13/2023 Orders Only [facility] CHC MED & PEDS [address] [place], [place] [phone] Chato Thomason MD 505 [place] [address] Spongiotic dermatitis (Primary Dx) Social History Tobacco [...] Upcoming Encounters Date Type Department Care Team ([facility] st Contact Info) Description 07/27/2025 1:30 PM EDT Office Visit [facility] ADULT DENTAL [address] [place] [address] Joe Nash DMD [address] [place] 07/28/2025 11:00 AM EDT Clinical Support [facility] MED & PEDS [address] [place] [address] Linda Pelaez RN 505 [place] [address] 08/11/2025 10:30 AM EDT Office Visit [facility] MED & PEDS [address] [place] [address] Chato Thomason MD 505 [place] [address] 09/12/2025 1:30 PM EST Telemedicine [facility] MED & PEDS [address] [place] [address] Linda Pelaez RN [address] [place] [address] documented as of this encounter Visit Diagnoses Diagnosis Spongiotic dermatitis- Primary Contact dermatitis and other eczema, due to unspecified cause documented in this encounter Care Teams Fund Accountant Relationship Specialty Start Date End Date Chato Thomason MD [address] [place] [address] PCP - General Internal Medicine 10/27/18 Kelsey Minaya Community Health Worker 06/08/2407/07 Eliane Metzger Live Source OperatorCook Pressure 01/29/24 07/08/24 Mackenzie Roland Live Source Operator 07/09/24 Angela Pozo Live Source Operator 07/09/24 06/12/25 [facility] 06/12/23 Ezekiel Patricia Live Source OperatorCook Pressure 06/13/25 documented as of this encounter
--- OUTSIDE RECORDS SUMMARY | 2025-07-20 16:25 | XMS_ITS | Encounter Summary ---
Author Organization [employer] Address 75 [facility] 7 [place] [address] Care Team Providers Care Supervisor Matrix Name Role Phone Chato Thomason MD Primary Care Provider [phone] Reason for Visit * Reason Onset Date Comments Med Refill 04/04/2025 Encounter Details Date Type Department Care Team ([facility] st Contact Info) Description 04/04/2025 Telephone [facility] MEDICINE [address] [place], [place] [phone] Chato Thomason MD [address] [place], [place] [phone] Med Refill Social History Tobacco Use Types [...] tablet To be sent to: [facility] documented in this encounter Plan of Treatment Upcoming Encounters Date Type Department Care Team (Late st Contact Info) Description 07/27/2025 1:30 PM EDT Office Visit [facility] ADULT DENTAL [address] [place] [address] Joe Nash DMD [address] [place] [address] 07/28/2025 11:00 AM EDT Clinical Support [facility] MED & PEDS [address] [place] [address] Linda Pelaez, WALT [address] [place] [address] 08/11/2025 10:30 AM EDT Office Visit [facility] MED & PEDS 505 [place] [address] Chato Thomason MD 505 [place] [address] 09/12/2025 1:30 PM EST Telemedicine [facility] MED & PEDS [address] [place] [address] Linda Pelaez RN 505 [place] [address] documented as of this encounter Visit Diagnoses Not on filedocumented in this encounter Additional Health Concerns Assessment Noted Time PHQ-9 Depression Total Score: 19 024 3:44 PM EDT documented as of this encounter Care Teams Supervisor Matrix Relationship Specialty Start Date End Date Chato Thomason MD [address] [place] [address] PCP - General Internal Medicine 10/27/18 Mackenzie Roland Director Of Scientific Research 07/09/24 Angela Pozo Director Of Scientific Research 07/09/24 06/12/25 [facility] 06/12/23 Ezekiel Patricia Director Of Scientific ResearchFood Sales Clerk 06/13/25 documented as of this encounter
--- OUTSIDE RECORDS SUMMARY | 2025-07-20 16:25 | XMS_ITS | Encounter Summary ---
Author Organization [employer] Address 75 [facility] 7 [place] [address] Care Team Providers Care Link Assembler Name Role Phone Chato Thomason MD Primary Care Provider [phone] Kelsey Minaya Unavailable Encounter Details Date Type Department Care Team (Late st Contact Info) Description 08/28/2023 Abstract [facility] MEDICINE [address] [place] [address] Chato Thomason MD 505 [place], [place] [phone] Social History Tobacco Use Types Packs/Day Years [...] the past 12 months, has t he [employer], gas, oil or water [employer] threatened to shut off services in your [...] [facility] [address] [place] [address] Joe Nash DMD 505 [place] [address] 07/28/2025 11:00 AM EDT Clinical Support [facility] MED & PEDS [address] [place] [address] Linda Pelaez RN 505 [place] [address] 08/11/2025 10:30 AM EDT Office Visit [facility]EDS [address] [place] [address] Chato Thomason MD 505 [place] [address] 09/12/2025 1:30 PM EST Telemedicine [facility] MED & PEDS 505 [place] [address] Linda Pelaez RN 505 [place] [address] documented as of this encounter Procedures Procedure [...] on filedocumented in this encounter Care Teams Link Assembler Relationship Specialty Start Date End Date Chato Thomason MD [address] [place] [address] PCP - General Internal Medicine 10/27/18 Kelsey Minaya Community Health Worker 06/08/2407/07 Eliane Metzger Balance AssemblerMolding Plasterer 01/29/24 07/08/24 Mackenzie Roland Balance Assembler 07/09/24 Angela Pozo Balance Assembler 07/09/24 06/12/25 [facility] 06/12/23 Ezekiel Patricia Balance AssemblerMolding Plasterer 06/13/25 documented as of this encounter
--- OUTSIDE RECORDS SUMMARY | 2025-07-20 16:25 | XMS_ITS | Encounter Summary ---
Author Organization [employer] Address [address] [place] [address] 7t [place] [address] Care Team Providers Care Solaris Administrator Name Role Phone Chato Thomason MD Primary Care Provider [phone] Encounter Details Date Type Department Care Team ([facility] st Contact Info) Description 12/02/2024 Orders Only [facility] CHC MED & PEDS [address] [place], [place] [phone] Chato Thomason MD 505 [place], [place] [phone] Neuropathic pain Social History Tobacco Use Types [...] Description 07/27/2025 1:30 PM EDT Office Visit [facility] ADULT DENTAL [address] [place] [address] Joe Nash DMD 505 [place] [address] 07/28/2025 11:00 AM EDT Clinical Support [facility] MED & PEDS [address] [place] [address] Linda Pelaez RN [address] [place] [address] 08/11/2025 10:30 AM EDT Office [facility] MED & PEDS [address] [place] [address] Chato Thomason MD 505 [place] [address] 09/12/2025 1:30 PM EST Telemedicine [facility] MED & PEDS 505 [place] [address] Linda Pelaez RN 505 [place] [address] documented as of this encounter Visit Diagnoses Diagnosis Neuropathic pain documented in this encounter Additional Health Concerns Assessment Noted Time PHQ-9 Depression Total Score: 19 024 3:44 PM EDT documented as of this encounter Care Teams Solaris Administrator Relationship Specialty Start Date End Date Chato Thomason MD 505 [facility] [place] [address] PCP - General Internal Medicine 10/27/18 Mackenzie Roland Warp Hand 07/09/24 Angela Pozo Warp Hand 07/09/24 06/12/25 [facility] 06/12/23 Ezekiel Patricia Warp HandLumber Buyer 06/13/25 documented as of this encounter
--- OUTSIDE RECORDS SUMMARY | 2025-07-20 16:25 | XMS_ITS | Encounter Summary ---
Author Organization [employer] Address [address] [place] [address] [place] [address] Care Team Providers Care Chlorine Cells Operator Name Role Phone Chato Thomason MD Primary Care Provider [phone] Kelsey Minaya Unavailable Reason for Referral * Consultation (Routine) - Closed Specialty Diagnoses / Procedures Referred By Maryana singh Referred To Contact Podiatry Diagnoses Nail problem Chato Thomason MD [address] [place] [address] Phone: tel: fax: Referral ID Status Reason Start Date Expiration Date V isits Requested Visits Authorized [id number] Closed Specialty Services Required 06/11/2024 06/11/2025 1 1 Encounter Details Date Type Department Care Team ([facility] st Contact Info) Description 06/11/2024 Orders Only [facility] CH[facility] MED & PEDS [address] [place] [address] Chato Thomason MD 505 [place] [address] Nail problem (Primary Dx); Anxiety Social History [...] Description 07/27/2025 1:30 PM EDT Office Visit [facility] ADULT DENTAL 505 [place] [address] Joe Nash DMD 505 [place] [address] 07/28/2025 11:00 AM EDT Clinical Support [facility] MED & PEDS 505 [place] [address] Linda Pelaez RN 505 [place] [address] 08/11/2025 10:30 AM EDT Office Visit [facility] MED & PEDS [address] [place] [address] Chato Thomason MD 505 [place] [address] 09/12/2025 1:30 PM EST Telemedicine [facility] MED & PEDS [address] [place] [address] Linda Pelaez, RN [address] [place] [address] Scheduled Referrals Name Type Priority Associated Diagnoses Orde r Schedule Referral to Podiatry Outpatient Referral Routine Nail problem Expected: 06/11/2024 (Approximate), Expires: 06/11/2025 documented as of this encounter Visit Diagnoses Diagnosis Nail problem- Primary Other specified disease of nail Anxiety Anxiety state, unspecified documented in this encounter Care Teams Chlorine Cells Operator Relationship Specialty Start Date End Date Chato Thomason MD 505 [place] [address] PCP - General Internal Medicine 10/27/18 Kelsey Minaya Community Health Worker 06/08/2407/07 Eliane Metzger BeamsterTransportation Consultant 01/29/24 07/08/24 Mackenzie Roland Beamster 07/09/24 Angela Pozo Beamster 07/09/24 06/12/25 [facility] 06/12/23 Ezekiel Patricia BeamsterTransportation Consultant 06/13/25 documented as of this encounter
--- OUTSIDE RECORDS SUMMARY | 2025-07-20 16:25 | XMS_ITS | Encounter Summary ---
Author Organization [employer] Address [address] [place] [address] Care Team Providers Care Title Assistant Name Role Phone Chato Thomason MD Primary Care Provider [phone] Reason for Referral * Consultation (Routine) - Closed Specialty Diagnoses / Procedures Referred By Contto singh Referred To Contact Dermatology Diagnoses Spongiotic dermatitis Chato Thomason MD [address] [place] [address] Phone: tel: fax: Gail Srinivasan [address] [place] [address] Phone: tel: fax: Referral ID Status Reason Start Date Expiration Date V isits Requested Visits Authorized [id number] Closed Specialty Services Required 08/25/2024 08/25/2025 1 1 Encounter Details Date Type Department Care Team ([facility] st Contact Info) Description 08/24/2024 Orders Only [facility] CHC MED & PEDS [address] [place], [place] [phone] Chato Thomason MD [address] [place], [place] [phone] Spongiotic dermatitis (Primary Dx) Social History Tobacco [...] [facility] [address] [place] [address] Joe Nash, KARIN 505 [place] [address] 07/28/2025 11:00 AM EDT Clinical Support [facility] MED & PEDS [address] [place] [address] Linda Pelaez RN 505 [place] [address] 08/11/2025 10:30 AM EDT Office Visit [facility] MED & PEDS [address] [place] [address] Chato Thomason MD 505 [place] [address] 09/12/2025 1:30 PM EST Telemedicine [facility] MED & PEDS [address] [place] [address] Linda Pelaez RN [address] [place] [address] Scheduled Referrals Name Type Priority Associated Diagnoses [...] documented as of this encounter Care Teams Title Assistant Relationship Specialty Start Date End Date Chato Thomason MD [address] [place] [address] PCP - General Internal Medicine 10/27/18 Mackenzie Roland President Financial Institution 07/09/24 Angela Pozo President Financial Institution 07/09/24 06/12/25 [facility] 06/12/23 Ezekiel Patricia President Financial InstitutionDie Baker 06/13/25 documented as of this encounter
--- OUTSIDE RECORDS SUMMARY | 2025-07-20 16:25 | XMS_ITS | Encounter Summary ---
Author Organization [employer] Address 75 [facility] 7 [place] [address] Care Team Providers Care Plastic Process Technician Name Role Phone Chato Thomason MD Primary Care Provider [phone] Reason for Visit * Reason Onset Date Comments Med Refill 03/14/2025 Encounter Details Date Type Department Care Team ([facility] st Contact Info) Description 03/14/2025 Telephone [facility] MEDICINE [address] [place], [place] [phone] Chato Thomason MD [address] [place], [place] [phone] Med Refill Social History Tobacco Use Types [...] to: [facility] [address] documented in this encounter Plan of Treatment Upcoming Encounters Date Type Department Care Team (Late st Contact Info) Description 07/27/2025 1:30 PM EDT Office Visit [facility] AD[facility]AL [address] [place] [address] Joe Nash DMD 505 [place] [address] 07/28/2025 11:00 AM EDT Clinical Support [facility] MED & PEDS [address] [place] [address] Linda Pelaez RN [address] [place] [address] 08/11/2025 10:30 AM EDT Office Visit [facility] MED & PEDS [address] [place] [address] Chato Thomason MD [address] [place] [address] 09/12/2025 1:30 PM EST Telemedicine [facility] MED & PEDS [address] [place] [address] Linda Pelaez RN [address] [place] [address] documented as of this encounter Visit Diagnoses Not on filedocumented in this encounter Additional Health Concerns Assessment Noted Time PHQ-9 Depression Total Score: 19 024 3:44 PM EDT documented as of this encounter Care Teams Plastic Process Technician Relationship Specialty Start Date End Date Chato Thomason MD [address] [place] [address] PCP - General Internal Medicine 10/27/18 Mackenzie Roland Set Up Operator 07/09/24 Angela Pozo Set Up Operator 07/09/24 06/12/25 [facility] 06/12/23 Ezekiel Patricia Set Up OperatorSewing Machine Repairer Helper 06/13/25 documented as of this encounter
--- OUTSIDE RECORDS SUMMARY | 2025-07-20 16:25 | XMS_ITS | Encounter Summary ---
Author Organization [employer] Address 75 [facility] 7 [place] [address] Care Team Providers Care Passenger Service Supervisor Name Role Phone Chato Thomason MD Primary Care Provider [phone] Kelsey Minaya Unavailable Encounter Details Date Type Department Care Team (Late st Contact Info) Description 11/05/2023 Abstract [facility] MEDICINE [address] [place] [address] Chato Thomason MD [address] [place], [place] [phone] Social History Tobacco Use Types Packs/Day Years [...] the past 12 months, has t he [employer], gas, oil or water [employer] threatened to shut off services in your [...] 1:30 PM EDT Office Visit [facility] ADULT DENTAL [address] [place] [address] Joe Nash DMD [address] [place], [place] 07/28/2025 11:00 AM EDT Clinical Support [facility] MED & PEDS [address] [place], [place] [phone] Linda Pelaez RN [address] [place], [place] 08/11/2025 10:30 AM EDT Office Visit [facility] MED & PEDS [address] [place] [address] Chato Thomason MD 505 [place] [address] 09/12/2025 1:30 PM EST Telemedicine [facility] MED & PEDS [address] [place] [address] Linda Pelaez RN [address] [place] [address] documented as of this encounter Visit Diagnoses Not on filedocumented in this encounter Care Teams Passenger Service Supervisor Relationship Specialty Start Date End Date Chato Thomason MD [address] [place] [address] PCP - General Internal Medicine 10/27/18 Kelsey Minaya Community Health Worker 06/08/2407/07 Eliane Metzger Director Clinical OperationsElementary Principal 01/29/24 07/08/24 Mackenzie Roland Director Clinical Operations 07/09/24 Angela Pozo Director Clinical Operations 07/09/24 06/12/25 [facility] 06/12/23 Ezekiel Patricia Director Clinical OperationsElementary Principal 06/13/25 documented as of this encounter
--- OUTSIDE RECORDS SUMMARY | 2025-07-20 16:25 | XMS_ITS | Encounter Summary ---
Author Organization [employer] Address 75 [facility] 7 [place] [address] Care Team Providers Care Fax Machine Repairer Name Role Phone Chato Thomason MD Primary Care Provider [phone] Reason for Visit * Reason Onset Date Comments Order 03/14/2025 Encounter Details Date Type Department Care Team ([facility] st Contact Info) Description 03/14/2025 Telephone [facility] MEDICINE [address] [place], [place] [phone] Chato Thomason MD 505 [place] [address] Order Social History Tobacco Use Types Packs/Day [...] Tc from Stan with outpatient rehab in [facility] in regards neuropathic pain order stating it would need to be changed to lymphedema order due to the being 2 different diagnoses. Stan requested order be put Attention to Stan If any questions you can contact Stan at [phone]. documented in this encounter Plan of Treatment Upcoming Encounters Date Type Department Care Team ([facility] st Contact Info) Description 07/27/2025 1:30 PM EDT Office Visit [facility] ADULT DENTAL [address] [place] [address] Joe Nash DMD 505 [place] [address] 07/28/2025 11:00 AM EDT Clinical Support [facility] MED & PEDS [address] [place] [address] Linda Pelaez, RN [address] [place] [address] 08/11/2025 10:30 AM EDT Office Visit [facility] MED & PEDS [address] [place] [address] Chato Thomason MD 505 [place] [address] 09/12/2025 1:30 PM EST Telemedicine [facility] MED & PEDS 505 [place] [address] Linda Pelaez, WALT 505 [place] [address] documented as of this encounter Visit Diagnoses Not on filedocumented in this encounter Additional Health Concerns Assessment Noted Time PHQ-9 Depression Total Score: 19 024 3:44 PM EDT documented as of this encounter Care Teams Fax Machine Repairer Relationship Specialty Start Date End Date Chato Thomason MD 505 [place] [address] PCP - General Internal Medicine 10/27/18 Mackenzie Roland Early Childhood Teacher Assistant 07/09/24 Angela Pozo Early Childhood Teacher Assistant 07/09/24 06/12/25 [facility] 06/12/23 Ezekiel Patricia Early Childhood Teacher AssistantPostal Clerk 06/13/25 documented as of this encounter
--- OUTSIDE RECORDS SUMMARY | 2025-07-20 16:25 | XMS_ITS | Encounter Summary ---
Author Organization [employer] Address 75 [facility] 7 [place] [address] Care Team Providers Care Pathology Laboratory Director Name Role Phone Chato Thomason MD Primary Care Provider [phone] Reason for Visit * Reason Onset Date Comments Med Refill 11/30/2024 Encounter Details Date Type Department Care Team ([facility] st Contact Info) Description 11/30/2024 Telephone [facility] MEDICINE [address] [place], [place] [phone] Chato Thomason MD 505 [place], [place] [phone] Med Refill Social History Tobacco Use Types [...] 50 MG tablet To be sent to: [facility] - [place], [place] - [address] [place] [address] documented in this encounter Plan of Treatment Upcoming Encounters Date Type Department Care Team (Late st Contact Info) Description 07/27/2025 1:30 PM EDT Office Visit [facility] ADULT DENTAL [address] [place] [address] Joe Nash DMD 505 [place] [address] 07/28/2025 11:00 AM EDT Clinical Support [facility] MED & PEDS 505 [place] [address] Linda Pelaez RN 505 [place] [address] 08/11/2025 10:30 AM EDT Office Visit [facility] MED & PEDS 505 [place] [address] Chato Thomason MD 505 [place] [address] 09/12/2025 1:30 PM EST Telemedicine [facility] MED & PEDS 505 [place] [address] Linda Pelaez RN 505 [place] [address] documented as of this encounter Visit Diagnoses Not on filedocumented in this encounter Additional Health Concerns Assessment Noted Time PHQ-9 Depression Total Score: 19 024 3:44 PM EDT documented as of this encounter Care Teams Pathology Laboratory Director Relationship Specialty Start Date End Date Chato Thomason MD 505 [place] [address] PCP - General Internal Medicine 10/27/18 Mackenzie Roland Equalizing Saw Operator 07/09/24 Angela Pozo Equalizing Saw Operator 07/09/24 06/12/25 [facility] 06/12/23 Ezekiel Patricia Equalizing Saw OperatorBoat Carpenter Mechanic 06/13/25 documented as of this encounter
--- OUTSIDE RECORDS SUMMARY | 2025-07-20 16:25 | XMS_ITS | Encounter Summary ---
Author Organization [employer] Address 75 [facility] 7 [place] [address] Care Team Providers Care Ophthalmologist Name Role Phone Chato Thomason MD Primary Care Provider [phone] Reason for Visit * Reason Onset Date Comments Med Refill 04/18/2025 Encounter Details Date Type Department Care Team ([facility] st Contact Info) Description 04/18/2025 Telephone [facility] MEDICINE 230 [place], [place] [phone] Chato Thomason MD 505 [place], [place] [phone] Med Refill Social History Tobacco Use Types [...] immediate release tablet To be sent to: [facility] - [place], [place] - [address] [place] [address] documented in this encounter Plan of Treatment Upcoming Encounters Date Type Department Care Team ([facility] st Contact Info) Description 07/27/2025 1:30 PM EDT Office Visit [facility] ADULT DENTAL [address] [place] [address] Joe Nash DMD 505 [place] [address] 07/28/2025 11:00 AM EDT Clinical Support [facility] MED & PEDS [address] [place] [address] Linda Pelaez, WALT [address] [place] [address] 08/11/2025 10:30 AM EDT Office Visit [facility] MED & PEDS [address] [place] [address] Chato Thomason MD 505 [place] [address] 09/12/2025 1:30 PM EST Telemedicine [facility] MED & PEDS 505 [place] [address] Linda Pelaez, WALT 505 [place] [address] documented as of this encounter Visit Diagnoses Not on filedocumented in this encounter Additional Health Concerns Assessment Noted Time PHQ-9 Depression Total Score: 19 024 3:44 PM EDT documented as of this encounter Care Teams Ophthalmologist Relationship Specialty Start Date End Date Chato Thomason MD 505 [place] [address] PCP - General Internal Medicine 10/27/18 Mackenzie Roland Medical Doctor Nuclear Medicine 07/09/24 Angela Pzoo Medical Doctor Nuclear Medicine 07/09/24 06/12/25 [facility] 06/12/23 Ezekiel Patricia Medical Doctor Nuclear MedicineAir Defence Officer 06/13/25 documented as of this encounter
--- OUTSIDE RECORDS SUMMARY | 2025-07-20 16:25 | XMS_ITS | Encounter Summary ---
Author Organization [employer] Address 75 [facility] 7t [place] [address] Care Team Providers Care Review Rn Name Role Phone Chato Thomason MD Primary Care Provider [phone] Encounter Details Date Type Department Care Team ([facility] st Contact Info) Description 08/05/2024 Orders Only [facility] MED & PEDS [address] [place], [place] [phone] Provider, MD Colleen Social History Tobacco Use [...] ([facility] st Contact Info) Description 07/27/2025 1:30 PM EDT Office Visit [facility] ADULT DENTAL 505 [place] [address] Joe Nash DMD [address] [place], [place] 07/28/2025 11:00 AM EDT Clinical Support [facility] MED & PEDS 505 [place] [address] Linda Pelaez RN 505 [place] [address] 08/11/2025 10:30 AM EDT Office Visit [facility] MED & PEDS 505 [place] [address] Chato Thomason MD 505 [place] [address] 09/12/2025 1:30 PM EST Telemedicine [facility] MED & PEDS 505 [place] [address] Linda Pelaez RN [address] [place], [place] documented as of this encounter Procedures [...] documented as of this encounter Care Teams Review Rn Relationship Specialty Start Date End Date Chato Thomason MD [address] [place] [address] PCP - General Internal Medicine 10/27/18 Mackenzie Roland Roll Finisher 07/09/24 Angela Pozo Roll Finisher 07/09/24 06/12/25 [facility] 06/12/23 Ezekiel Patricia Roll FinisherTail Worker 06/13/25 documented as of this encounter
--- OUTSIDE RECORDS SUMMARY | 2025-07-20 16:25 | XMS_ITS | Encounter Summary ---
Author Organization [employer] Address [address] [place] [address] Care Team Providers Care Biostatistics Director Name Role Phone Chato Thomason MD Primary Care Provider [phone] Reason for Referral * Consultation (Routine) - Closed Specialty Diagnoses / Procedures Referred By Contac t Referred To Contact Pain Medicine Diagnoses Squamous cell carcinoma of larynx (CMS/HCC) Dysphagia, unspecified type Chato Thomason MD [address] [place] [address] Phone: tel: fax: Moe Luna MD [address] [place] [address] [place] [address] Phone: tel: fax: Referral ID Status Reason Start Date Expiration Date V isits Requested Visits Authorized [id number] Closed Specialty Services Required 12/20/2024 12/20/2025 1 1 Encounter Details Date Type Department Care Team (Late st Contact Info) Description 12/20/2024 Orders Only [facility] MEDICINE [address] [place] [address] Chato Thomason MD [address] [place], [place] [phone] Squamous cell carcinoma of larynx (CMS/HCC) (Primary [...] 1:30 PM EDT Office Visit [facility] ADULT DENTAL 505 [place] [address] Joe Nash, KARIN [address] [place] [address] 07/28/2025 11:00 AM EDT Clinical Support [facility] MED & PEDS [address] [place] [address] Linda Pelaez RN 505 [place] [address] 08/11/2025 10:30 AM EDT Office Visit [facility] MED & PEDS 505 [place] [address] Chato Thomason MD [address] [place] [address] 09/12/2025 1:30 PM EST Telemedicine [facility] MED & PEDS [address] [place] [address] Linda Pelaez RN 505 [place] [address] Scheduled Referrals Name Type Priority Associated Diagnoses [...] documented as of this encounter Care Teams Biostatistics Director Relationship Specialty Start Date End Date Chato Thomason MD [address] [place] [address] PCP - General Internal Medicine 10/27/18 Mackenzie Roland Reach Truck Operator 07/09/24 Angela Pozo Reach Truck Operator 07/09/24 06/12/25 [facility] 06/12/23 Ezekiel Patricia Reach Truck OperatorPanel Cutter 06/13/25 documented as of this encounter
--- OUTSIDE RECORDS SUMMARY | 2025-07-20 16:25 | XMS_ITS | Encounter Summary ---
Author Organization [employer] Address [address] [place] [address] 7 [place] [address] Care Team Providers Care Box Hinge And Lock Attacher Name Role Phone Chato Thomason MD Primary Care Provider [phone] Kelsey Minaya Unavailable Encounter Details Date Type Department Care Team (Late st Contact Info) Description 12/04/2022 Abstract [facility] MEDICINE [address] [place], [place] [phone] Chato Thomason MD [address] [place], [place] [phone] Social History Tobacco Use Types Packs/Day Years [...] Description 07/27/2025 1:30 PM EDT Office Visit [facility] ADULT DENTAL 505 [place], [place] [phone] Joe Nash DMD [address] [place], [place] [phone] 07/28/2025 11:00 AM EDT Clinical Support [facility] MED & PEDS 505 [place], [place] [phone] Linda Pelaez, WALT 505 [place] [address] 08/11/2025 10:30 AM EDT Office Visit [facility] MED & PEDS 505 [place] [address] Chato Thomason MD 505 [place] [address] 09/12/2025 1:30 PM EST Telemedicine [facility] MED & PEDS 505 [place] [address] Linda Pelaez, WALT [address] [place] [address] documented as of this encounter Visit Diagnoses Not on filedocumented in this encounter Care Teams Box Hinge And Lock Attacher Relationship Specialty Start Date End Date Chato Thomason MD [address] [place] [address] PCP - General Internal Medicine 10/27/18 Kelsey Minaya Community Health Worker 06/08/2407/07 Eliane Metzger Healthcare AnalystCommunications Project Lead 01/29/24 07/08/24 Mackenzie Roland Healthcare Analyst 07/09/24 Angela Pozo Healthcare Analyst 07/09/24 06/12/25 [facility] 06/12/23 Ezekiel Patricia Healthcare AnalystCommunications Project Lead 06/13/25 documented as of this encounter
--- OUTSIDE RECORDS SUMMARY | 2025-07-20 16:25 | XMS_ITS | Encounter Summary ---
Author Organization [employer] Address 75 [facility] 7 [place] [address] Care Team Providers Care Fire Equipment Operator Name Role Phone Chato Thomason MD Primary Care Provider [phone] Reason for Visit * Reason Onset Date Comments Referral 11/30/2024 Medication Question 11/30/2024 Encounter Details Date Type Department Care Team ([facility] st Contact Info) Description 11/30/2024 Telephone [facility] MEDICINE 230 [place] [address] Chato Thomason MD [address] [place], [place] [phone] Referral; Medication Question Social History Tobacco Use [...] the pt is in. Contact pt at [phone] documented in this encounter Plan of Treatment Upcoming Encounters Date Type Department Care Team (Late st Contact Info) Description 07/27/2025 1:30 PM EDT Office Visit [facility] ADULT DENTAL [address] [place] [address] Joe Nash DMD 505 [place] [address] 07/28/2025 11:00 AM EDT Clinical Support [facility] MED & PEDS [address] [place] [address] Linda Pelaez RN 505 [place] [address] 08/11/2025 10:30 AM EDT Office Visit [facility] MED & PEDS [address] [place] [address] Chato Thomason MD 505 [place] [address] 09/12/2025 1:30 PM EST Telemedicine [facility] MED & PEDS [address] [place] [address] Linda Pelaez, WALT 505 [place] [address] documented as of this encounter Visit Diagnoses Not on filedocumented in this encounter Additional Health Concerns Assessment Noted Time PHQ-9 Depression Total Score: 19 024 3:44 PM EDT documented as of this encounter Care Teams Fire Equipment Operator Relationship Specialty Start Date End Date Chato Thomason MD [address] [place] [address] PCP - General Internal Medicine 10/27/18 Mackenzie Roland Meteorology Instructor 07/09/24 Angela Pozo Meteorology Instructor 07/09/24 06/12/25 [facility] 06/12/23 Ezekiel Patricia Meteorology InstructorMaintenance And Engineering Manager 06/13/25 documented as of this encounter
--- OUTSIDE RECORDS SUMMARY | 2025-07-20 16:25 | XMS_ITS | Encounter Summary ---
Author Organization [employer] Address 75 [facility] 7 [place] [address] Care Team Providers Care Quality Assurance Clerk Name Role Phone Chato Thomason MD Primary Care Provider [phone] Reason for Visit * Reason Onset Date Comments Med Refill 01/10/2025 Encounter Details Date Type Department Care Team ([facility] st Contact Info) Description 01/10/2025 Telephone [facility] MEDICINE 230 [place], [place] [phone] Chato Thomason MD [address] [place], [place] [phone] Med Refill Social History Tobacco Use Types [...] immediate release tablet To be sent to: [facility] - [place], [place] - [address] [place] [address] documented in this encounter Plan of Treatment Upcoming Encounters Date Type Department Care Team ([facility] st Contact Info) Description 07/27/2025 1:30 PM EDT Office Visit [facility] ADULT DENTAL [address] [place] [address] Joe Nash DMD 505 [place] [address] 07/28/2025 11:00 AM EDT Clinical Support [facility] MED & PEDS [address] [place] [address] Linda Pelaez, WALT [address] [place] [address] 08/11/2025 10:30 AM EDT Office Visit [facility] MED & PEDS [address] [place] [address] Chato Thomason MD [address] [place] [address] 09/12/2025 1:30 PM EST Telemedicine [facility] MED & PEDS 505 [place] [address] Linda Pelaez, WALT 505 [place] [address] documented as of this encounter Visit Diagnoses Not on filedocumented in this encounter Additional Health Concerns Assessment Noted Time PHQ-9 Depression Total Score: 19 024 3:44 PM EDT documented as of this encounter Care Teams Quality Assurance Clerk Relationship Specialty Start Date End Date Chato Thomason MD [address] [place] [address] PCP - General Internal Medicine 10/27/18 Mackenzie Roland Pack Train Driver 07/09/24 Angela Pozo Pack Train Driver 07/09/24 06/12/25 [facility] 06/12/23 Ezekiel Patricia Pack Train DriverBreakfast Supervisor 06/13/25 documented as of this encounter
--- OUTSIDE RECORDS SUMMARY | 2025-07-20 16:25 | XMS_ITS | Encounter Summary ---
Author Organization [employer] Address 75 [facility] 7 [place] [address] Care Team Providers Care Propagator Name Role Phone Chato Thomason MD Primary Care Provider [phone] Reason for Visit * Reason Onset Date Comments Med Refill 02/24/2025 Encounter Details Date Type Department Care Team ([facility] st Contact Info) Description 02/24/2025 Telephone [facility] MEDICINE 230 [place], [place] [phone] Chato Thomason MD 505 [place], [place] [phone] Med Refill Social History Tobacco Use Types [...] immediate release tablet To be sent to: [facility] documented in this encounter Plan of Treatment Upcoming Encounters Date Type Department Care Team (Late st Contact Info) Description 07/27/2025 1:30 PM EDT Office Visit [facility] ADULT DENTAL [address] [place] [address] Joe Nash DMD 505 [place] [address] 07/28/2025 11:00 AM EDT Clinical Support [facility] MED & PEDS [address] [place] [address] Linda Pelaez, WALT [address] [place] [address] 08/11/2025 10:30 AM EDT Office Visit [facility] MED & PEDS [address] [place] [address] Chato Thomason MD 505 [place] [address] 09/12/2025 1:30 PM EST Telemedicine [facility] MED & PEDS [address] [place] [address] Linda Pelaez RN 505 [place] [address] documented as of this encounter Visit Diagnoses Not on filedocumented in this encounter Additional Health Concerns Assessment Noted Time PHQ-9 Depression Total Score: 19 024 3:44 PM EDT documented as of this encounter Care Teams Propagator Relationship Specialty Start Date End Date Chato Thomason MD 505 [place] [address] PCP - General Internal Medicine 10/27/18 Mackenzie Roland Operations Research Manager 07/09/24 Angela Pozo Operations Research Manager 07/09/24 06/12/25 [facility] 06/12/23 Ezekiel Patricia Operations Research ManagerBench Repair Technician 06/13/25 documented as of this encounter
--- OUTSIDE RECORDS SUMMARY | 2025-07-20 16:25 | XMS_ITS | Encounter Summary ---
Author Organization [employer] Address [address] [place] [address] 7t [place] [address] Care Team Providers Care Tie Puller Name Role Phone Chato Thomason MD Primary Care Provider [phone] Kelsey Minaya Unavailable Encounter Details Date Type Department Care Team (Late st Contact Info) Description 07/03/2023 Orders Only [facility] MED & PEDS [address] [place] [address] Lucia Elmore LPN Social History Tobacco Use [...] [facility] [address] [place] [address] Joe Nash DMD [address] [place] [address] 07/28/2025 11:00 AM EDT Clinical Support [facility] MED & PEDS [address] [place] [address] Linda Pelaez, WALT 505 [place] [address] 08/11/2025 10:30 AM EDT Office Visit [facility] MED & PEDS [address] [place] [address] Chato Thomason MD 505 [place] [address] 09/12/2025 1:30 PM EST Telemedicine [facility] MED & PEDS [address] [place] [address] Linda Pelaez, WALT 505 [place] [address] documented as of this encounter Visit Diagnoses Not on filedocumented in this encounter Care Teams Tie Puller Relationship Specialty Start Date End Date Chato Thomason MD [address] [place] [address] PCP - General Internal Medicine 10/27/18 Kelsey Minaya Community Health Worker 06/08/2407/07 Eliane Metzger Store Team LeaderStations Superintendent 01/29/24 07/08/24 Mackenzie Roland Store Team Leader 07/09/24 Angela Pozo Store Team Leader 07/09/24 06/12/25 [facility] 06/12/23 Ezekiel Patricia Store Team LeaderStations Superintendent 06/13/25 documented as of this encounter
--- OUTSIDE RECORDS SUMMARY | 2025-07-20 16:25 | XMS_ITS | Encounter Summary ---
Author Organization [employer] Address [address] [place] [address] 7 [place] [address] Care Team Providers Care Florist Helper Name Role Phone Chato Thomason MD Primary Care Provider [phone] Reason for Visit * Reason Comments Med Refill Encounter Details Date Type Department Care Team ([facility] st Contact Info) Description 11/30/2024 Refill [facility] MED & PEDS [address] [place], [place] [phone] Chato Thomason MD 505 [place], [place] [phone] Other insomnia; Anxiety; Anxiety; Squamous cell carcinoma [...] [facility] ADULT DENTAL [address] [place] [address] Joe Nash, KARIN [address] [place] [address] 07/28/2025 11:00 AM EDT Clinical Support [facility] MED & PEDS [address] [place] [address] Linda Pelaez RN 505 [place] [address] 08/11/2025 10:30 AM EDT Office Visit [facility] MED & PEDS [address] [place] [address] Chato Thomason MD 505 [place] [address] 09/12/2025 1:30 PM EST Telemedicine [facility] MED & PEDS [address] [place] [address] Linda Pelaez RN 505 [place] [address] documented as of this encounter Visit Diagnoses Diagnosis Other insomnia Anxiety Anxiety state, unspecified Squamous cell carcinoma of larynx (CMS/HCC) Malignant neoplasm of larynx, unspecified site documented in this encounter Additional Health Concerns Assessment Noted Time PHQ-9 Depression Total Score: 19 024 3:44 PM EDT documented as of this encounter Care Teams Florist Helper Relationship Specialty Start Date End Date Chato Thomason MD [address] [place] [address] PCP - General Internal Medicine 10/27/18 Mackenzie Roland Av[employer]ics Systems Integration Specialist 07/09/24 Angela Pozo Av[employer]ics Systems Integration Specialist 07/09/24 06/12/25 [facility] 06/12/23 Ezekiel Patricia [employer] Systems Integration SpecialistMachine Tech 06/13/25 documented as of this encounter
--- OUTSIDE RECORDS SUMMARY | 2025-07-20 16:25 | XMS_ITS | Encounter Summary ---
Author Organization [employer] Address 75 [facility] 7 [place] [address] Care Team Providers Care Flight Operations Specialist Name Role Phone Chato Thomason MD Primary Care Provider [phone] Reason for Visit * Reason Onset Date Comments PT1 12/28/2024 Encounter Details Date Type Department Care Team ([facility] st Contact Info) Description 12/28/2024 Telephone [facility] MEDICINE [address] [place], [place] [phone] Chato Thomason MD 505 [place], [place] [phone] PT1 Social History Tobacco Use Types Packs/Day [...] Y/N: Yes Provider name or facility name: [address] [place] [address] [place] [address] - Pain Management Escort needed: Y/N: Yes Do you have a wheelchair: Y/N: No If yes- Manual or electric: N/A Visits: (2x monthly) documented in this encounter Plan of Treatment Upcoming Encounters Date Type Department Care Team (Late st Contact Info) Description 07/27/2025 1:30 PM EDT Office Visit [facility] ADULT DENTAL [address] [place] [address] Joe Nash DMD 505 [place] [address] 07/28/2025 11:00 AM EDT Clinical Support [facility] MED & PEDS [address] [place] [address] Linda Pelaez RN 505 [place] [address] 08/11/2025 10:30 AM EDT Office Visit [facility] MED & PEDS 505 [place] [address] Chato Thomason MD 505 [place] [address] 09/12/2025 1:30 PM EST Telemedicine [facility] MED & PEDS 505 [place] [address] Linda Pelaez RN 505 [place] [address] documented as of this encounter Visit Diagnoses Not on filedocumented in this encounter Additional Health Concerns Assessment Noted Time PHQ-9 Depression Total Score: 19 024 3:44 PM EDT documented as of this encounter Care Teams Flight Operations Specialist Relationship Specialty Start Date End Date Chato Thomason MD 505 [place] [address] PCP - General Internal Medicine 10/27/18 Mackenzie Roland Machining Manager 07/09/24 Angela Pozo Machining Manager 07/09/24 06/12/25 [facility] 06/12/23 Ezekiel Patricia Machining ManagerGlove Sewer 06/13/25 documented as of this encounter
--- OUTSIDE RECORDS SUMMARY | 2025-07-20 16:25 | XMS_ITS | Encounter Summary ---
Author Organization [employer] Address 75 [facility] 7 [place] [address] Care Team Providers Care Certified Histologic Technician Name Role Phone Chato Thomason MD Primary Care Provider [phone] Reason for Visit * Reason Onset Date Comments Referral 08/05/2024 Encounter Details Date Type Department Care Team ([facility] st Contact Info) Description 08/05/2024 Telephone [facility] CHC MED & PEDS 505 [place], [place] [phone] Chato Thomason MD 505 [place] [address] Referral Social History Tobacco Use Types Packs/Day [...] requesting to re new referral to Location: [facility] Address: [address] [place] [address] [place] [address] documented in this encounter Plan of Treatment Upcoming Encounters Date Type Department Care Team (Late st Contact Info) Description 07/27/2025 1:30 PM EDT Office Visit [facility] ADULT DENTAL [address] [place], [place] [phone] Joe Nash DMD 505 [place] [address] 07/28/2025 11:00 AM EDT Clinical Support [facility] MED & PEDS [address] [place], [place] [phone] Linda Pelaez RN 505 [place] [address] 08/11/2025 10:30 AM EDT Office Visit [facility] MED & PEDS 505 [place] [address] Chato Thomason MD 505 [place] [address] 09/12/2025 1:30 PM EST Telemedicine [facility] MED & PEDS 505 [place] [address] Linda Peleaz RN 505 [place] [address] documented as of this encounter Visit Diagnoses Not on filedocumented in this encounter Additional Health Concerns Assessment Noted Time PHQ-9 Depression Total Score: 19 024 3:44 PM EDT documented as of this encounter Care Teams Certified Histologic Technician Relationship Specialty Start Date End Date Chato Thomason MD 505 [place] [address] PCP - General Internal Medicine 10/27/18 Mackenzie Roland Project Specialist 07/09/24 Angela Pozo Project Specialist 07/09/24 06/12/25 [facility] 06/12/23 Ezekiel Patricia Project SpecialistCar Body Designer 06/13/25 documented as of this encounter
--- OUTSIDE RECORDS SUMMARY | 2025-07-20 16:25 | XMS_ITS | Encounter Summary ---
Author Organization [employer] Address 75 [facility] 7 [place] [address] Care Team Providers Care Debone Supervisor Name Role Phone Chato Thomason MD Primary Care Provider [phone] Reason for Visit * Reason Onset Date Comments Medication Question 04/01/2025 Encounter Details Date Type Department Care Team ([facility] Contact Info) Description 04/01/[address] [facility] CHC MED & PEDS 505 [place], [place] [phone] Chato Thomason MD 505 [place], [place] [phone] Medication Question Social History Tobacco Use Types [...] affecting pt mood. Contact pt mom at [phone] documented in this encounter Plan of Treatment Upcoming Encounters Date Type Department Care Team (Late st Contact Info) Description 07/27/2025 1:30 PM EDT Office Visit [facility] ADULT DENTAL [address] [place] [address] Joe Nash DMD 505 [place] [address] 07/28/2025 11:00 AM EDT Clinical Support [facility] MED & PEDS [address] [place] [address] Linda Pelaez, RN 505 [place] [address] 08/11/2025 10:30 AM EDT Office Visit [facility] MED & PEDS [address] [place] [address] Chato Thomason MD 505 [place] [address] 09/12/2025 1:30 PM EST Telemedicine [facility] MED & PEDS [address] [place] [address] Linda Pelaez, WALT 505 [place] [address] documented as of this encounter Visit Diagnoses Diagnosis Squamous cell carcinoma of larynx (CMS/HCC) Malignant neoplasm of larynx, unspecified site Anxiety Anxiety state, unspecified documented in this encounter Additional Health Concerns Assessment Noted Time PHQ-9 Depression Total Score: 19 024 3:44 PM EDT documented as of this encounter Care Teams Debone Supervisor Relationship Specialty Start Date End Date Chato Thomason MD 505 [place] [address] PCP - General Internal Medicine 10/27/18 Mackenzie Roland Data Compiler 07/09/24 Angela Pozo Data Compiler 07/09/24 06/12/25 [facility] 06/12/23 Ezekiel Patricia Data CompilerContour Grinder 06/13/25 documented as of this encounter
--- OUTSIDE RECORDS SUMMARY | 2025-07-20 16:25 | XMS_ITS | Encounter Summary ---
Author Organization [employer] Address 75 [facility] 7 [place] [address] Care Team Providers Care Financial Report Service Sales Agent Name Role Phone Chato Thomason MD Primary Care Provider [phone] Reason for Visit * Reason Onset Date Comments Med Refill 09/13/2024 Encounter Details Date Type Department Care Team ([facility] st Contact Info) Description 09/13/2024 Telephone [facility] MEDICINE [address] [place], [place] [phone] Chato Thomason MD 505 [place] [address] Med Refill Social History Tobacco Use Types [...] immediate release tablet To be sent to: [id number] [facility] documented in this encounter Plan of Treatment Upcoming Encounters Date Type Department Care Team ([facility] Contact Info) Description 07/27/2025 1:30 PM EDT Office Visit [facility] ADULT DENTAL [address] [place] [address] Joe Nash DMD 505 [place] [address] 07/28/2025 11:00 AM EDT Clinical Support [facility] MED & PEDS [address] [place] [address] Linda Pelaez, RN 505 [place] [address] 08/11/2025 10:30 AM EDT Office Visit [facility] MED & PEDS 505 [place] [address] Chato Thomason MD 505 [place] [address] 09/12/2025 1:30 PM EST Telemedicine [facility] MED & PEDS 505 [place] [address] Linda Pelaez, WALT 505 [place] [address] documented as of this encounter Visit Diagnoses Not on filedocumented in this encounter Additional Health Concerns Assessment Noted Time PHQ-9 Depression Total Score: 19 024 3:44 PM EDT documented as of this encounter Care Teams Financial Report Service Sales Agent Relationship Specialty Start Date End Date Chato Thomason MD 505 [place] [address] PCP - General Internal Medicine 10/27/18 Mackenzie Roland Automobile Sales Representative 07/09/24 Angela Pozo Automobile Sales Representative 07/09/24 06/12/25 [facility] 06/12/23 Ezekiel Patricia Automobile Sales RepresentativeBacteriologist Medical 06/13/25 documented as of this encounter
--- OUTSIDE RECORDS SUMMARY | 2025-07-20 16:25 | XMS_ITS | Encounter Summary ---
Author Organization [employer] Address [address] [place] [address] 7t [place] [address] Care Team Providers Care Respiratory Care Technician Name Role Phone Chato Thomason MD Primary Care Provider [phone] Encounter Details Date Type Department Care Team ([facility] st Contact Info) Description 03/24/2025 Orders Only [facility] CHC MED & PEDS 505 [place], [place] [phone] Chato Thomason MD 505 [place], [place] [phone] Neuropathic pain Social History Tobacco Use Types [...] Visit [facility] ADULT DENTAL 505 [place] [address] Joe Nash DMD 505 [place] [address] 07/28/2025 11:00 AM EDT Clinical Support [facility] MED & PEDS 505 [place] [address] Linda Pelaez RN 505 [place] [address] 08/11/2025 10:30 AM EDT Office Visit [facility] MED & PEDS 505 [place] [address] Chato Thomason MD 505 [place] [address] 09/12/2025 1:30 PM EST Telemedicine [facility] MED & PEDS 505 [place] [address] Linda Pelaez RN 505 [place] [address] documented as of this encounter Visit Diagnoses Diagnosis Neuropathic pain documented in this encounter Additional Health Concerns Assessment Noted Time PHQ-9 Depression Total Score: 19 024 3:44 PM EDT documented as of this encounter Care Teams Respiratory Care Technician Relationship Specialty Start Date End Date Chato Thomason MD 505 [facility] [place] [address] PCP - General Internal Medicine 10/27/18 Mackenzie Roland Music Video Director 07/09/24 Angela Pozo Music Video Director 07/09/24 06/12/25 [facility] 06/12/23 Ezekiel Patricia Music Video DirectorBrass Plater 06/13/25 documented as of this encounter
--- OUTSIDE RECORDS SUMMARY | 2025-07-20 16:25 | XMS_ITS | Encounter Summary ---
Author Organization [employer] Address 75 [facility] 7 [place] [address] Care Team Providers Care Regulator Pin Inserter Name Role Phone Chato Thomason MD Primary Care Provider [phone] Reason for Visit * Reason Onset Date Comments Med Refill 04/06/2025 Encounter Details Date Type Department Care Team ([facility] st Contact Info) Description 04/06/2025 Telephone [facility] MEDICINE [address] [place], [place] [phone] Chato Thomason MD 505 [place], [place] [phone] Med Refill Social History Tobacco Use Types [...] encounter Miscellaneous Notes * Telephone Encounter - Familai Preston - 04/06/2025 10:46 AM EDT TC from pt requesting medication refill. Medications needing refill: oxyCODONE (Roxicodone) 15 MG immediate release tablet To be sent to: [facility] - [place], [place] - [address] [place] [address] documented in this encounter Plan of Treatment Upcoming Encounters Date Type Department Care Team ([facility] st Contact Info) Description 07/27/2025 1:30 PM EDT Office Visit [facility] ADULT DENTAL [address] [place] [address] Joe Nash DMD 505 [place] [address] 07/28/2025 11:00 AM EDT Clinical Support [facility] MED & PEDS [address] [place] [address] Linda Pelaez RN [address] [place] [address] 08/11/2025 10:30 AM EDT Office Visit [facility] MED & PEDS 505 [place] [address] Chato Thomason MD 505 [place] [address] 09/12/2025 1:30 PM EST Telemedicine [facility] MED & PEDS 505 [place] [address] Linda Pelaez RN [address] [place] [address] documented as of this encounter Visit Diagnoses Not on filedocumented in this encounter Additional Health Concerns Assessment Noted Time PHQ-9 Depression Total Score: 19 024 3:44 PM EDT documented as of this encounter Care Teams Regulator Pin Inserter Relationship Specialty Start Date End Date Chato Thomason MD 505 [place] [address] PCP - General Internal Medicine 10/27/18 Mackenzie Roland Import Specialist 07/09/24 Angela Pozo Import Specialist 07/09/24 06/12/25 [facility] 06/12/23 Ezekiel Patricia Import SpecialistAutomated Process Operator 06/13/25 documented as of this encounter
--- OUTSIDE RECORDS SUMMARY | 2025-07-20 16:25 | XMS_ITS | Encounter Summary ---
Author Organization [employer] Address 75 [facility] 7 [place] [address] Care Team Providers Care Director Patient Name Role Phone Chato Thomason MD Primary Care Provider [phone] Reason for Visit * Reason Onset Date Comments Call Back Request 07/26/2024 Encounter Details Date Type Department Care Team ([facility] st Contact Info) Description 07/26/2024 Telephone [facility] MEDICINE [address] [place], [place] [phone] Chato Thomason MD 505 [place], [place] [phone] Call Back Request Social History Tobacco Use [...] 1:57 PM EDT Tc from Mackenzie with [facility] requesting status on referral for [facility] stating it was discussedduring last visit. Please contact Mackenzie at [phone]. documented in this encounter Plan of Treatment Upcoming Encounters Date Type Department Care Team (Late st Contact Info) Description 07/27/2025 1:30 PM EDT Office Visit [facility] ADULT DENTAL [address] [place] [address] Joe Nash DMD 505 [place] [address] 07/28/2025 11:00 AM EDT Clinical Support [facility] MED & PEDS [address] [place] [address] Linda Pelaez RN 505 [place] [address] 08/11/2025 10:30 AM EDT Office Visit [facility] MED & PEDS [address] [place] [address] Chato Thomason MD 505 [place] [address] 09/12/2025 1:30 PM EST Telemedicine [facility] MED & PEDS [address] [place] [address] Linda Pelaez RN 505 [place] [address] documented as of this encounter Visit Diagnoses Not on filedocumented in this encounter Care Teams Director Patient Relationship Specialty Start Date End Date Chato Thomason MD 505 [place] [address] PCP - General Internal Medicine 10/27/18 Mackenzie Roland Metal Bed Assembler 07/09/24 Angela Pozo Metal Bed Assembler 07/09/24 06/12/25 [facility] 06/12/23 Ezekiel Patricia Metal Bed AssemblerSkating Carhop 06/13/25 documented as of this encounter
--- OUTSIDE RECORDS SUMMARY | 2025-07-20 16:26 | XMS_ITS | Encounter Summary ---
Author Organization [employer] Address [address] [place] [address] 7t [place] [address] Care Team Providers Care Marine Services Technician Name Role Phone Chato Thomason MD Primary Care Provider [phone] Encounter Details Date Type Department Care Team (Late st Contact Info) Description 06/03/2025 Orders Only [facility] 230 [place], [place] [phone] Provider, MD Colleen Social History Tobacco Use [...] Description 07/27/2025 1:30 PM EDT Office Visit [facility] ADULT DENTAL 505 [place] [address] Joe Nash DMD [address] [place] [address] 07/28/2025 11:00 AM EDT Clinical Support [facility] MED & PEDS [address] [place] [address] Linda Pelaez RN 505 [place] [address] 08/11/2025 10:30 AM EDT Office Visit [facility] MED & PEDS [address] [place] [address] Chato Thomason MD 505 [place] [address] 09/12/2025 1:30 PM EST Telemedicine [facility] MED & PEDS [address] [place] [address] Linda Pelaez, WALT 505 [place] [address] documented as of this encounter Procedures Procedure Name Priority Date/Time Associated Diagnosis Comments FL GUIDANCE IN OR Routine 07/01/2025 7:4 6 AM EDT FL MODIFIED BARIUM SWALLOW Routine 06/02/2025 11:09 AM EDT documented in this encounter Results * FL Guidance in OR (07/01/2025 7:46 AM EDT) Anatomical Region Laterality Modality X-Ray Angiograph y 07/01/2025 7:46 AM EDT Narrative 07/01/2025 9:55 AM EDT [address] [address] Fluoroscopy Report Signed Patient: Lawrence Childers MR#: [id number] : 1965 Acct:[id number] Age/Sex: 60 / M ADM Date: 07/01/25 Loc: .[facility] Attending Dr: Moe Luna MD Ordering Physician: Moe Luna MD Date of Service: 07/01/25 Procedure(s): FL guidance in OR Accession Number(s): [id number] cc: Chato Thomason MD; Moe Luna MD [...] Nathan Ho MD in OV> 07/01/2552 DD/ 5 TD/TT: 07/01/25919 Etcher Photoengraving: Procedure Note Donotuseinterpreter, Image - 07/01/[address] [address] Fluoroscopy Report Signed Patient: Lawrence Childers MMR#: [id number] : 1965Acct:[id number] Age/Sex: 60 / MADM Date: 07/01/25 Loc: HO.SSS Attending Dr: Moe Luna MD Ordering Physician: Moe Luna MD Date of Service: 07/01/25 Procedure(s): FL guidance in OR Accession Number(s): [id number] cc: Chato Thomason MD; Moe Luna MD [...] Nathan Ho MD in OV> 07/01/2552 DD/ 0746 TD/TT: 07/01/25 0920 Etcher Photoengraving: [facility] External Provider IMG IR PROCEDURES Final Result * FL MODIFIED BARIUM SWALLOW (06/02/2025 11:09 AM EDT) Anatomical Region Laterality Modality Radiographic Saundra ging Historical Provider IMSushil FLUOROSCOPY PROCEDURE S Final Result documented in this encounter Visit Diagnoses Not on filedocumented in this encounter Additional Health Concerns Assessment Noted Time PHQ-9 Depression Total Score: 19 024 3:44 PM EDT documented as of this encounter Care Teams Marine Services Technician Relationship Specialty Start Date End Date Chato Thomason MD [address] [place] [address] PCP - General Internal Medicine 10/27/18 Mackenzie Roland Bake Room Worker 07/09/24 Angela Pozo Bake Room Worker 07/09/24 06/12/25 [employer] [facility] 06/12/23 Ezekiel Patricia Bake Room WorkerCasting House Laborer 06/13/25 documented as of this encounter
--- OUTSIDE RECORDS SUMMARY | 2025-07-20 16:26 | XMS_ITS | Encounter Summary ---
Author Organization [employer] Address 75 [facility] 7 [place] [address] Care Team Providers Care Commercial Loan Reviewer Name Role Phone Chato Thomason MD Primary Care Provider [phone] Kelsey Minaya Unavailable Encounter Details Date Type Department Care Team ([facility] st Contact Info) Description 05/04/2024 Orders Only [facility] CHC MED & PEDS [address] [place], [place] [phone] Chato Thomason MD 505 [place] [address] Squamous cell carcinoma of larynx (CMS/HCC) (Primary [...] Office Visit [facility] ADULT DENTAL [address] [place] [address] Joe Nash DMD [address] [place] 07/28/2025 11:00 AM EDT Clinical Support [facility] MED & PEDS [address] [place] [address] Linda Pelaez, WALT 505 [place] [address] 08/11/2025 10:30 AM EDT Office Visit [facility] MED [facility] PEDS [address] [place] [address] Chato Thomason MD [address] [place] [address] 09/12/2025 1:30 PM EST Telemedicine [facility] MED & PEDS [address] [place] [address] Linda Pelaez, WALT 505 [place] [address] documented as of this encounter Visit Diagnoses Diagnosis 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, unspecified site Other insomnia documented in this encounter Care Teams Commercial Loan Reviewer Relationship Specialty Start Date End Date Chato Thomason MD 505 [place] [address] PCP - General Internal Medicine 10/27/18 Kelsey Minaya Community Health Worker 06/08/2407/07 Eliane Metzger Explosive Ordnance Disposal ManagerFiscal Technician 01/29/24 07/08/24 Mackenzie Roland Explosive Ordnance Disposal Manager 07/09/24 Angela Pozo Explosive Ordnance Disposal Manager 07/09/24 06/12/25 [facility] 06/12/23 Ezekiel Patricia Explosive Ordnance Disposal ManagerFiscal Technician 06/13/25 documented as of this encounter
--- OUTSIDE RECORDS SUMMARY | 2025-07-20 16:26 | XMS_ITS | Encounter Summary ---
Author Organization [employer] Address [address] [place] [address] 7 [place] [address] Care Team Providers Care Socket Puller Name Role Phone Chato Thomason MD Primary Care Provider [phone] Encounter Details Date Type Department Care Team ([facility] st Contact Info) Description 07/08/2025 Orders Only [facility] CHC MED & PEDS [address] [place], [place] [phone] Chato Thomason MD 505 [place], [place] [phone] Neuropathic pain; Anxiety Social History Tobacco Use Types Packs/Day [...] [facility] ADULT DENTAL [address] [place] [address] Joe Nash DMD 505 [place] [address] 07/28/2025 11:00 AM EDT Clinical Support [facility] MED & PEDS [address] [place] [address] Linda Pelaez RN 505 [place] [address] 08/11/2025 10:30 AM EDT Office Visit [facility] MED & PEDS [address] [place] [address] Chato Thomason MD 505 [place] [address] 09/12/2025 1:30 PM EST Telemedicine [facility] MED & PEDS [address] [place] [address] Linda Pelaez RN [address] [place] [address] documented as of this encounter Visit Diagnoses Diagnosis Neuropathic pain Anxiety Anxiety state, unspecified documented in this encounter Additional Health Concerns Assessment Noted Time PHQ-9 Depression Total Score: 19 024 3:44 PM EDT documented as of this encounter Care Teams Socket Puller Relationship Specialty Start Date End Date Chato Thomason MD 505 [facility] [place] [address] PCP - General Internal Medicine 10/27/18 Mackenzie Roland Commission Sales Associate 07/09/24 [facility] 06/12/23 Ezekiel Patricia Commission Sales AssociateCustom Protection Officer 06/13/25 documented as of this encounter
--- OUTSIDE RECORDS SUMMARY | 2025-07-20 16:26 | XMS_ITS | Encounter Summary ---
Author Organization [employer] Address [address] [place] [address] 7t [place] [address] Care Team Providers Care Habilitation Training Specialist Name Role Phone Chato Thomason MD Primary Care Provider [phone] Reason for Visit * Reason Onset Date Comments cx appt medical situation needs new date 025 Encounter Details Date Type Department Care Team ([facility] st Contact Info) Description 06/21/2025 Telephone [facility] ADULT DENTAL [address] [place], [place] [phone] Joe Nash, DMD 505 [place], [place] [phone] cx appt medical situation needs new date [...] schedule however I would send message to dental scheduler to update. documented in this encounter Plan of Treatment Upcoming Encounters Date Type Department Care Team (Late st Contact Info) Description 07/27/2025 1:30 PM EDT Office Visit [facility] ADULT DENTAL 505 [place] [address] Joe Nash, KARIN 505 [place] [address] 07/28/2025 11:00 AM EDT Clinical Support [facility] MED & PEDS 505 [place] [address] Linda Pelaez RN [address] [place] [address] 08/11/2025 10:30 AM EDT Office Visit [facility] MED & PEDS [address] [place] [address] Chato Thomason MD 505 [place] [address] 09/12/2025 1:30 PM EST Telemedicine [facility] MED & PEDS [address] [place] [address] Linda Pelaez RN [address] [place] [address] documented as of this encounter Visit Diagnoses Not on filedocumented in this encounter Additional Health Concerns Assessment Noted Time PHQ-9 Depression Total Score: 19 024 3:44 PM EDT documented as of this encounter Care Teams Habilitation Training Specialist Relationship Specialty Start Date End Date Chato Thomason MD 505 [place] [address] PCP - General Internal Medicine 10/27/18 Mackenzie Roland Staff Accountant 07/09/24 [facility] 06/12/23 Ezekiel Patricia Staff AccountantHuman Relations Professor 06/13/25 documented as of this encounter
--- OUTSIDE RECORDS SUMMARY | 2025-07-20 16:26 | XMS_ITS | Encounter Summary ---
Author Organization [employer] Address [address] [facility] 7 [place] [address] Care Team Providers Care Sports Medicine Coordinator Name Role Phone Chato Thomason MD Primary Care Provider [phone] Reason for Visit * Reason Onset Date Comments pt1 01/26/2025 Encounter Details Date Type Department Care Team ([facility] st Contact Info) Description 01/26/2025 Telephone [facility] MEDICINE [address] [place], [place] [phone] Chato Thomason MD 505 [place], [place] [phone] pt1 Social History Tobacco Use Types Packs/Day [...] Y/N: Yes Provider name or facility name: [address] [place] [address] Escort needed: Y/N: Yes Do you have a wheelchair: Y/N: No If yes- Manual or electric: n/a Visits: (2x monthly) documented in this encounter Plan of Treatment Upcoming Encounters Date Type Department Care Team (Late st Contact Info) Description 07/27/2025 1:30 PM EDT Office Visit [facility] ADULT DENTAL 505 [place] [address] Joe Nash DMD 505 [place] [address] 07/28/2025 11:00 AM EDT Clinical Support [facility] MED & PEDS 505 [place] [address] Linda Pelaez RN 505 [place] [address] 08/11/2025 10:30 AM EDT Office Visit [facility] MED & PEDS 505 [place] [address] Chato Thomason MD 505 [place] [address] 09/12/2025 1:30 PM EST Telemedicine [facility] MED & PEDS 505 [place] [address] Linda Pelaez RN 505 [place] [address] documented as of this encounter Visit Diagnoses Not on filedocumented in this encounter Additional Health Concerns Assessment Noted Time PHQ-9 Depression Total Score: 19 024 3:44 PM EDT documented as of this encounter Care Teams Sports Medicine Coordinator Relationship Specialty Start Date End Date Chato Thomason MD 505 [place] [address] PCP - General Internal Medicine 10/27/18 Mackenzie Roland Smeller 07/09/24 Angela Pozo Smeller 07/09/24 06/12/25 [facility] 06/12/23 Ezekiel Patricia SmellerPsychiatry Resident 06/13/25 documented as of this encounter
--- OUTSIDE RECORDS SUMMARY | 2025-07-20 16:26 | XMS_ITS | Encounter Summary ---
Author Organization [employer] Address 75 [facility] 7 [place] [address] Care Team Providers Care Manager Of Pharmacy Name Role Phone Chato Thomason MD Primary Care Provider [phone] Reason for Visit * Reason Onset Date Comments Med Refill 02/15/2025 Encounter Details Date Type Department Care Team ([facility] st Contact Info) Description 02/15/[address] [facility] MEDICINE [address] [place], [place] [phone] Chato Thomason MD 505 [place], [place] [phone] Med Refill Social History Tobacco Use Types [...] 150 MG tablet To be sent to: [facility] documented in this encounter Plan of Treatment Upcoming Encounters Date Type Department Care Team ([facility] st Contact Info) Description 07/27/2025 1:30 PM EDT Office Visit [facility] ADULT DENTAL [address] [place] [address] Joe Nash, KARIN 505 [place] [address] 07/28/2025 11:00 AM EDT Clinical Support [facility] MED & PEDS [address] [place] [address] Linda Pelaez, WALT [address] [place] [address] 08/11/2025 10:30 AM EDT Office Visit [facility] MED & PEDS 505 [place] [address] Chato Thomason MD 505 [place] [address] 09/12/2025 1:30 PM EST Telemedicine [facility] MED & PEDS 505 [place] [address] Linda Pelaez RN 505 [place] [address] documented as of this encounter Visit Diagnoses Not on filedocumented in this encounter Additional Health Concerns Assessment Noted Time PHQ-9 Depression Total Score: 19 024 3:44 PM EDT documented as of this encounter Care Teams Manager Of Pharmacy Relationship Specialty Start Date End Date Chato Thomason MD 505 [place] [address] PCP - General Internal Medicine 10/27/18 Mackenzie Roland Sales Force Developer 07/09/24 Angela Pozo Sales Force Developer 07/09/24 06/12/25 [facility] 06/12/23 Ezekiel Patricia Sales Force DeveloperKennel Operator 06/13/25 documented as of this encounter
--- OUTSIDE RECORDS SUMMARY | 2025-07-20 16:26 | XMS_ITS | Encounter Summary ---
Author Organization [employer] Address 75 [facility] 7 [place] [address] Care Team Providers Care Canvas Cutter Machine Name Role Phone Chato Thomason MD Primary Care Provider [phone] Reason for Visit * Reason Onset Date Comments Med Refill 02/15/2025 Encounter Details Date Type Department Care Team ([facility] st Contact Info) Description 02/15/2025 Telephone [facility] MEDICINE 230 [place], [place] [phone] Chato Thomason MD 505 [place], [place] [phone] Med Refill Social History Tobacco Use Types [...] 7.5 MG tablet To be sent to: [facility] documented in this encounter Plan of Treatment Upcoming Encounters Date Type Department Care Team ([facility] st Contact Info) Description 07/27/2025 1:30 PM EDT Office Visit [facility] ADULT DENTAL [address] [place] [address] Joe Nash, KARIN 505 [place] [address] 07/28/2025 11:00 AM EDT Clinical Support [facility] MED & PEDS [address] [place] [address] Linda Pelaez, RN [address] [place] [address] 08/11/2025 10:30 AM EDT Office Visit [facility] MED & PEDS [address] [place] [address] Chato Thomason MD 505 [place] [address] 09/12/2025 1:30 PM EST Telemedicine [facility] MED & PEDS [address] [place] [address] Linda Pelaez RN 505 [place] [address] documented as of this encounter Visit Diagnoses Not on filedocumented in this encounter Additional Health Concerns Assessment Noted Time PHQ-9 Depression Total Score: 19 024 3:44 PM EDT documented as of this encounter Care Teams Canvas Cutter Machine Relationship Specialty Start Date End Date Chato Thomason MD 505 [place] [address] PCP - General Internal Medicine 10/27/18 Mackenzie Roland Dye Padder Operator 07/09/24 Angela Pozo Dye Padder Operator 07/09/24 06/12/25 [facility] 06/12/23 Ezekiel Patricia Dye Padder OperatorResident Athletic Trainer 06/13/25 documented as of this encounter
--- OUTSIDE RECORDS SUMMARY | 2025-07-20 16:26 | XMS_ITS | Encounter Summary ---
Author Organization [employer] Address [address] [facility] 7t [place] [address] Care Team Providers Care Two Way Radio Technician Name Role Phone Chato Thomason MD Primary Care Provider [phone] Kelsey Minaya Unavailable Encounter Details Date Type Department Care Team ([facility] Contact Info) Description 06/25/2024 Orders Only [facility] CHC MED & PEDS [address] [place], [place] [phone] ProviderColleen MD Social History Tobacco Use Types [...] Upcoming Encounters Date Type Department Care Team ([facility] st Contact Info) Description 07/27/2025 1:30 PM EDT Office Visit [facility] ADULT DENTAL 505 [place] [address] Joe Nash DMD 505 [place] [address] 07/28/2025 11:00 AM EDT Clinical Support [facility] MED & PEDS 505 [place] [address] Linda Pelaez RN 505 [place] [address] 08/11/2025 10:30 AM EDT Office Visit [facility] MED & PEDS 505 [place] [address] Chato Thomason MD 505 [place] [address] 09/12/2025 1:30 PM EST Telemedicine [facility] MED & PEDS 505 [place] [address] Linda Pelaez, WALT 505 [place] [address] documented as of this encounter Procedures Procedure [...] on filedocumented in this encounter Care Teams Two Way Radio Technician Relationship Specialty Start Date End Date Chato Thomason MD [address] [place] [address] PCP - General Internal Medicine 10/27/18 Kelsey Minyaa Community Health Worker 06/08/2407/07 Eliane Metzger Regeneration OperatorForm Tamper Operator 01/29/24 07/08/24 Mackenzie Roland Regeneration Operator 07/09/24 Angela Pozo Regeneration Operator 07/09/24 06/12/25 [facility] 06/12/23 Ezekiel Patricia Regeneration OperatorForm Tamper Operator 06/13/25 documented as of this encounter
--- OUTSIDE RECORDS SUMMARY | 2025-07-20 16:26 | XMS_ITS | Encounter Summary ---
Author Organization [employer] Address [address] [facility] 7 [place] [address] Care Team Providers Care Messenger Office Name Role Phone Chato Thomason MD Primary Care Provider [phone] Reason for Visit * Reason Onset Date Comments Call Back Request 05/30/2025 Encounter Details Date Type Department Care Team ([facility] st Contact Info) Description 05/30/2025 Telephone [facility] MEDICINE [address] [place], [place] [phone] Chato Thomason MD 505 [place], [place] [phone] Call Back Request Social History Tobacco Use [...] discuss prior message. Contact pt mom at [phone] * Telephone Encounter - Familia Preston - 05/30/2025 8:38 AM EDT Tc from mom requesting call back stating they received a letter regarding home health aide but mom and pt are unsure on what agency will be providing services. They're also requesting guidance on howthe initial process would work. Please contact mom at [phone]. documented in this encounter Plan of Treatment Upcoming Encounters Date Type Department Care Team ([facility] st Contact Info) Description 07/27/2025 1:30 PM EDT Office Visit [facility] ADULT DENTAL [address] [place] [address] Joe Nash, KARIN 505 [place] [address] 07/28/2025 11:00 AM EDT Clinical Support [facility] MED & PEDS [address] [place] [address] Linda Pelaez, WALT 505 [place] [address] 08/11/2025 10:30 AM EDT Office Visit [facility] MED & PEDS [address] [place] [address] Chato Thomason MD 505 [place] [address] 09/12/2025 1:30 PM EST Telemedicine [facility] MED & PEDS [address] [place] [address] Linda Pelaez, WALT 505 [place] [address] documented as of this encounter Visit Diagnoses Not on filedocumented in this encounter Additional Health Concerns Assessment Noted Time PHQ-9 Depression Total Score: 19 024 3:44 PM EDT documented as of this encounter Care Teams Messenger Office Relationship Specialty Start Date End Date Chato Thomason MD [address] [place] [address] PCP - General Internal Medicine 10/27/18 Mackenzie Roland Structurer 07/09/24 Angela Pozo Structurer 07/09/24 06/12/25 [facility] 06/12/23 Ezekiel Patricia StructurerProfessional Services Manager 06/13/25 documented as of this encounter
--- OUTSIDE RECORDS SUMMARY | 2025-07-20 16:26 | XMS_ITS | Encounter Summary ---
Author Organization [employer] Address [address] [facility] [address] 7t [place] [address] Care Team Providers Care Extension Educator Name Role Phone Chato Thomason MD Primary Care Provider [phone] Kelsey Minaya Unavailable Encounter Details Date Type Department Care Team ([facility] Contact Info) Description 06/24/2024 Orders Only [facility] CHC MED & PEDS [address] [place] [address] ProviderColleen MD Social History Tobacco Use Types [...] Description 07/27/2025 1:30 PM EDT Office Visit [facility] ADULT DENTAL [address] [place] [address] Joe Nash DMD [address] [place] [address] 07/28/2025 11:00 AM EDT Clinical Support [facility] MED & PEDS [address] [place] [address] Linda Pelaez RN [address] [place] [address] 08/11/2025 10:30 AM EDT Office Visit [facility] MED & PEDS [address] [place] [address] Chato Thomason MD 505 [place] [address] 09/12/2025 1:30 PM EST Telemedicine [facility] MED & PEDS [address] [place] [address] Linda Pelaez, WALT [address] [place] [address] documented as of this encounter Procedures Procedure [...] filedocumented in this encounter Care Teams Extension Educator Relationship Specialty Start Date End Date Chato Thomason MD [address] [place] [address] PCP - General Internal Medicine 10/27/18 Kelsey Minaya Community Health Worker 06/08/2407/07 Eliane Metzger Irrigation SpecialistRoad Gang Supervisor 01/29/24 07/08/24 Mackenzie Roland Irrigation Specialist 07/09/24 Angela Pozo Irrigation Specialist 07/09/24 06/12/25 [facility] 06/12/23 Ezekiel Patricia Irrigation SpecialistRoad Gang Supervisor 06/13/25 documented as of this encounter
--- OUTSIDE RECORDS SUMMARY | 2025-07-20 16:26 | XMS_ITS | Encounter Summary ---
Author Organization [employer] Address 75 [facility] 7t [place] [address] Care Team Providers Care Service Engineer Name Role Phone Chato Thomason MD Primary Care Provider [phone] Kelsey Minaya Unavailable Encounter Details Date Type Department Care Team ([facility] st Contact Info) Description 03/30/2024 Orders Only [facility] CHC MED & PEDS [address] [place], [place] [phone] ProviderColleen MD Social History Tobacco Use Types [...] ([facility] st Contact Info) Description 07/27/2025 1:30 PM EDT Office Visit [facility] ADULT DENTAL [address] [place] [address] Joe Nash, KARIN [address] [place] [address] 07/28/2025 11:00 AM EDT Clinical Support [facility] MED & PEDS [address] [place] [address] Linda Pelaez, WALT 505 [place] [address] 08/11/2025 10:30 AM EDT Office Visit [facility] MED & PEDS [address] [place] [address] Chato Thomason MD [address] [place] [address] 09/12/2025 1:30 PM EST Telemedicine [facility] MED & PEDS [address] [place] [address] Linda Pelaez, WALT [address] [place] [address] documented as of this encounter Procedures Procedure Name Priority Date/Time Associated Diagnosis Comments SURGICAL PATHOLOGY Routine 03/25/2024 8:43 AM EDT documented in this encounter Results * Surgical Pathology (03/25/2024 8:43 AM EDT) Historical Provider LAB PATHOLOGY ORDERABLES Final Result documented in this encounter Visit Diagnoses Not on filedocumented in this encounter Care Teams Service Engineer Relationship Specialty Start Date End Date Chato Thomason MD 505 [place] [address] PCP - General Internal Medicine 10/27/18 Kelsey Minaya Community Health Worker 06/08/2407/07 Eliane Metzger Restaurant Managing PartnerAutos Disassembler 01/29/24 07/08/24 Mackenzie Roland Restaurant Managing Partner 07/09/24 Angela Pozo Restaurant Managing Partner 07/09/24 06/12/25 [facility] 06/12/23 Ezekiel Patricia Restaurant Managing PartnerAutos Disassembler 06/13/25 documented as of this encounter
--- OUTSIDE RECORDS SUMMARY | 2025-07-20 16:26 | XMS_ITS | Encounter Summary ---
Author Organization [employer] Address [address] [facility] 7 [place] [address] Care Team Providers Care Records Management Associate Name Role Phone Chato Thomason MD Primary Care Provider [phone] Reason for Visit * Reason Comments Care Coordination CHW outreach for SDO H PT-1 and food needs-referral completed Encounter Details Date Type Department Care Team (Latest Contact Info) Description 07/19/[address] [facility] MEDICINE [address] [place] [address] Chato Thomason MD 505 [place] [address] Care Coordination (CHW outreach for SDOH PT-1 and food needs-referral completed /) Social History Tobacco Use Types Packs/Day Years [...] as of this encounter Progress Notes * Dewey Haley - 07/19/2025 9:35 AM EDT CHW Dewey Haley, placed outbound call to patient for assistance with SDOH as a referral was received by the provider. Patient's name and were confirmed. Patient screened positive for the following SDOH food insecurities. Patient states family in on SNAP program at this time. CHW referral patient to the local list of pantries in the area for help. PT-1 requested was send out in behalf of patient for futures appt. Patient verbalizes understanding, and able to agree with plan to follow up.Patient educated on extended clinic hours on Mondays through Wednesdays, and Walk-In Urgent Care Located in [facility]. Patient provided with after-hours line for [facility], , which offer night time triage service and option to transfer to exploration geologist provider if needed. documented in this encounter Plan of Treatment Upcoming Encounters Date Type Department Care Team ([facility] Contact Info) Description 07/27/2025 1:30 PM EDT Office Visit [facility] ADULT DENTAL [address] [place] [address] Joe Nash DMD [address] [place] [address] 07/28/2025 11:00 AM EDT Clinical Support [facility] MED & PEDS [address] [place] [address] Linda Pelaez, RN [address] [place] [address] 08/11/2025 10:30 AM EDT Office Visit [facility] MED & PEDS [address] [place] [address] Chato Thomason MD [address] [place] [address] 09/12/2025 1:30 PM EST Telemedicine [facility] MED & PEDS [address] [place] [address] Linda Pelaez, WALT [address] [place] [address] documented as of this encounter Visit Diagnoses Not on filedocumented in this encounter Additional Health Concerns Assessment Noted Time PHQ-9 Depression Total Score: 19 024 3:44 PM EDT documented as of this encounter Care Teams Records Management Associate Relationship Specialty Start Date End Date Chato Thomason MD [address] [place] [address] PCP - General Internal Medicine 10/27/18 Mackenzie Roland Concentrator Operator 07/09/24 [facility] 06/12/23 Ezekiel Patricia Concentrator OperatorSwitch Maker 06/13/25 documented as of this encounter
--- OUTSIDE RECORDS SUMMARY | 2025-07-20 16:26 | XMS_ITS | Encounter Summary ---
Author Organization [employer] Address 75 [facility] 7 [place] [address] Care Team Providers Care Tanning Wheel Filler Name Role Phone Chato Thomason MD Primary Care Provider [phone] Kelsey Minaya Unavailable Reason for Visit * Reason Onset Date Comments PT-1 05/14/2024 Encounter Details Date Type Department Care Team ([facility] st Contact Info) Description 05/14/2024 Telephone [facility] MEDICINE [address] [place] [address] Chato Thomason MD 505 [place], [place] [phone] PT-1 Social History Tobacco Use Types Packs/Day [...] Y/N: Yes Provider name or facility name: [facility] Facility Address: [address] [place] [address] Escort needed: Y/N: Yes Do you have a wheelchair: Y/N: No If yes- Manual or electric: no Visits: 6 documented in this encounter Plan of Treatment Upcoming Encounters Date Type Department Care Team (Late st Contact Info) Description 07/27/2025 1:30 PM EDT Office Visit [facility] ADULT DENTAL 505 [place] [address] Joe Nash DMD 505 [place] [address] 07/28/2025 11:00 AM EDT Clinical Support [facility] MED & PEDS [address] [place] [address] Linda Pelaez RN 505 [place] [address] 08/11/2025 10:30 AM EDT Office Visit [facility] MED & PEDS [address] [place] [address] Chato Thomason MD 505 [place] [address] 09/12/2025 1:30 PM EST Telemedicine [facility] MED & PEDS [address] [place] [address] Linda Pelaez RN 505 [place] [address] documented as of this encounter Visit Diagnoses Not on filedocumented in this encounter Care Teams Tanning Wheel Filler Relationship Specialty Start Date End Date Chato Thomason MD 505 [place] [address] PCP - General Internal Medicine 10/27/18 Kelsey Minaya Community Health Worker 06/08/2407/07 Eliane Metzger Erp Project ManagerField Crop Ii Farmworker 01/29/24 07/08/24 Mackenzie Roland Erp Project Manager 07/09/24 Angela Pozo Erp Project Manager 07/09/24 06/12/25 [facility] 06/12/23 Ezekiel Patricia Erp Project ManagerField Crop Ii Farmworker 06/13/25 documented as of this encounter
--- OUTSIDE RECORDS SUMMARY | 2025-07-20 16:26 | XMS_ITS | Encounter Summary ---
Author Organization [employer] Address [address] [place] [address] 7t [place] [address] Care Team Providers Care Telesales Advisor Name Role Phone Chato Thomason MD Primary Care Provider [phone] Kelsey Minaya Unavailable Encounter Details Date Type Department Care Team (Late st Contact Info) Description 02/26/2024 Orders Only [facility] [address] [place], [place] [phone] ProviderColleen MD Social History Tobacco Use Types [...] [facility] [address] [place] [address] Joe Nash, DMD 505 [place] [address] 07/28/2025 11:00 AM EDT Clinical Support [facility] MED & PEDS 505 [place] [address] Linda Pelaez, WALT 505 [place] [address] 08/11/2025 10:30 AM EDT Office Visit [facility] MED & PEDS 505 [place] [address] Chato Thomason MD 505 [place] [address] 09/12/2025 1:30 PM EST Telemedicine [facility] MED & PEDS 505 [place] [address] Linda Pelaez, WALT 505 [place] [address] documented as of this encounter Procedures Procedure Name Priority Date/Time Associated Diagnosis Comments PATHOLOGY REPORT (HISTOPATHOLOGY) Routine 02/24/2024 3:36 PM EDT documented in this encounter Results * Pathology Report (02/24/2024 3:36 PM EDT) Tissue Historical Provider LAB PATHOLOGY ORDERABLES Final Result documented in this encounter Visit Diagnoses Not on filedocumented in this encounter Care Teams Telesales Advisor Relationship Specialty Start Date End Date Chato Thomason MD [address] [place] [address] PCP - General Internal Medicine 10/27/18 Kelsey Minaya Community Health Worker 06/08/2407/07 Eliane Metzger Registered Art TherapistTurbine Subassembler 01/29/24 07/08/24 Mackenzie Roland Registered Art Therapist 07/09/24 Angela Pozo Registered Art Therapist 07/09/24 06/12/25 [facility] 06/12/23 Ezekiel Patricia Registered Art TherapistTurbine Subassembler 06/13/25 documented as of this encounter
--- OUTSIDE RECORDS SUMMARY | 2025-07-20 16:26 | XMS_ITS | Encounter Summary ---
Author Organization [employer] Address 75 [facility] 7 [place] [address] Care Team Providers Care Locker Plant Attendant Name Role Phone Chato Thomason MD Primary Care Provider [phone] Reason for Visit * Reason Onset Date Comments Med Refill 02/02/2025 Encounter Details Date Type Department Care Team ([facility] st Contact Info) Description 02/02/2025 Telephone [facility] MEDICINE [address] [place], [place] [phone] Chato Thomason MD 505 [place], [place] [phone] Med Refill Social History Tobacco Use Types [...] immediate release tablet To be sent to: [facility] - [place], [place] - [address] [place] [address] documented in this encounter Plan of Treatment Upcoming Encounters Date Type Department Care Team ([facility] st Contact Info) Description 07/27/2025 1:30 PM EDT Office Visit [facility] ADULT DENTAL 505 [place] [address] Joe Nash DMD 505 [place] [address] 07/28/2025 11:00 AM EDT Clinical Support [facility] MED & PEDS 505 [place] [address] Linda Pelaez, WALT 505 [place] [address] 08/11/2025 10:30 AM EDT Office Visit [facility] MED & PEDS 505 [place] [address] Chato Thomason MD 505 [place] [address] 09/12/2025 1:30 PM EST Telemedicine [facility] MED & PEDS 505 [place] [address] Linda Pelaez, WALT 505 [place] [address] documented as of this encounter Visit Diagnoses Diagnosis Squamous cell carcinoma of larynx (CMS/HCC) Malignant neoplasm of larynx, unspecified site documented in this encounter Additional Health Concerns Assessment Noted Time PHQ-9 Depression Total Score: 19 024 3:44 PM EDT documented as of this encounter Care Teams Locker Plant Attendant Relationship Specialty Start Date End Date Chato Thomason MD 505 [place] [address] PCP - General Internal Medicine 10/27/18 Mackenzie Roland Open Pit Quarry Supervisor 07/09/24 Angela Pozo Open Pit Quarry Supervisor 07/09/24 06/12/25 [facility] 06/12/23 Ezekiel Patricia Open Pit Quarry SupervisorSupervisor Winding Department 06/13/25 documented as of this encounter
--- OUTSIDE RECORDS SUMMARY | 2025-07-20 16:26 | XMS_ITS | Encounter Summary ---
Author Organization [employer] Address [address] [place] [address] 7 [place] [address] Care Team Providers Care Drafter Assistant Name Role Phone Chato Thomason MD Primary Care Provider [phone] Kelsey Minaya Unavailable Reason for Visit * Reason Onset Date Comments PT1 06/07/2024 Encounter Details Date Type Department Care Team ([facility] st Contact Info) Description 06/07/2024 Telephone [facility] MED & PEDS [address] [place], [place] [phone] Chato Thomason MD 505 [place], [place] [phone] PT1 Social History Tobacco Use Types Packs/Day [...] Y/N: Yes Provider name or facility name: [facility] Facility Address: [address] [place] [address] Escort needed: Y/N: Yes Do you have a wheelchair: Y/N: No If yes- Manual or electric: n/a Visits: 1 x week documented in this encounter Plan of Treatment Upcoming Encounters Date Type Department Care Team (Late st Contact Info) Description 07/27/2025 1:30 PM EDT Office Visit [facility] ADULT DENTAL [address] [place] [address] Joe Nash DMD [address] [place] [address] 07/28/2025 11:00 AM EDT Clinical Support [facility] MED & PEDS [address] [place] [address] Linda Pelaez RN 505 [place] [address] 08/11/2025 10:30 AM EDT Office Visit [facility] MED & PEDS [address] [place] [address] Chato Thomason MD 505 [place] [address] 09/12/2025 1:30 PM EST Telemedicine [facility] MED & PEDS [address] [place] [address] Linda Pelaez, WALT 505 [place], [place] [phone] documented as of this encounter Visit Diagnoses Not on filedocumented in this encounter Care Teams Drafter Assistant Relationship Specialty Start Date End Date Chato Thomason MD 505 [place] [address] PCP - General Internal Medicine 10/27/18 Kelsey Minaya Community Health Worker 06/08/2407/07 Eliane Metzger Preparation Department SupervisorCommercial Carpet Installer 01/29/24 07/08/24 Mackenzie Roland Preparation Department Supervisor 07/09/24 Angela Pozo Preparation Department Supervisor 07/09/24 06/12/25 [facility] 06/12/23 Ezekiel Patricia Preparation Department SupervisorCommercial Carpet Installer 06/13/25 documented as of this encounter
--- OUTSIDE RECORDS SUMMARY | 2025-07-20 16:26 | XMS_ITS | Encounter Summary ---
Author Organization [employer] Address [address] [place] [address] Care Team Providers Care Discharge Coordinator Name Role Phone Chato Thomason MD Primary Care Provider [phone] Reason for Referral * Consultation (Routine) - Closed Specialty Diagnoses / Procedures Referred By Maryana singh Referred To Contact Physical Therapy Diagnoses Lymphatic edema Chato Thomason MD 505 [place] [address] Phone: tel: fax: Referral ID Status Reason Start Date Expiration Date V isits Requested Visits Authorized [id number] Closed Specialty Services Required 03/16/2025 03/16/2026 1 1 * Consultation (Routine) - Authorized Specialty Diagnoses / Procedures Referred By Maryana singh Referred To Contact Gastroenterology Diagnoses Epigastric pain Chato Thomason MD [address] [place] [address] Phone: tel: fax: Yomi Hernandes MD [address] [place] [address] Phone: tel: fax: Referral ID Status Reason Start Date Expiration Date Visits Requested Visits Authorized [id number] Authorized Specialty Services Required 03/04/2025 03/04/2026 1 1 * Consultation (Routine) - Closed Specialty Diagnoses / Procedures Referred By Contac t Referred To Contact Occupational Therapy Diagnoses Lymphatic edema Chato Thomason MD 505 [place] [address] Phone: tel: fax: Referral ID Status Reason Start Date Expiration Date V isits Requested Visits Authorized [id number] Closed Specialty Services Required 03/04/2025 03/04/2026 1 1 Encounter Details Date Type Department Care Team (Late st Contact Info) Description 03/04/2025 Orders Only [facility] MED & PEDS [address] [place] [address] Chato Thomason MD 505 [place] [address] Lymphatic edema (Primary Dx); Epigastric pain Social [...] ([facility] st Contact Info) Description 07/27/2025 1:30 PM EDT Office Visit [facility] ADULT DENTAL 505 [place] [address] Joe Nash DMD 505 [place] [address] 07/28/2025 11:00 AM EDT Clinical Support [facility] MED & PEDS [address] [place] [address] Linda Pelaez RN 505 [place] [address] 08/11/2025 10:30 AM EDT Office Visit [facility] MED & PEDS [address] [place] [address] Chato Thomason MD 505 [place] [address] 09/12/2025 1:30 PM EST Telemedicine [facility] MED & PEDS [address] [place] [address] Linda Pelaez RN 505 [place] [address] Scheduled Referrals Name Type Priority Associated Diagnoses [...] Results * Referral to Occupational Therapy (04/28/2025) us Chato Thomason MD OUTPATIENT REFERRAL ORDERAB LES Final Result documented in this encounter Visit Diagnoses Diagnosis Lymphatic edema- Primary Other noninfectious lymphedema Epigastric pain Abdominal pain, epigastric documented in this encounter Additional Health Concerns Assessment Noted Time PHQ-9 Depression Total Score: 19 024 3:44 PM EDT documented as of this encounter Care Teams Discharge Coordinator Relationship Specialty Start Date End Date Chato Thomason MD 505 [place] [address] PCP - General Internal Medicine 10/27/18 Mackenzie Roland Computer Game Designer 07/09/24 Angela Pozo Computer Game Designer 07/09/24 06/12/25 [facility] 06/12/23 Ezekiel Patricia Computer Game DesignerQuality Control Industrial Engineer 06/13/25 documented as of this encounter
--- OUTSIDE RECORDS SUMMARY | 2025-07-20 16:26 | XMS_ITS | Encounter Summary ---
Author Organization [employer] Address 75 [facility] 7 [place] [address] Care Team Providers Care Golf Range Attendant Name Role Phone Chato Thomason MD Primary Care Provider [phone] Reason for Visit * Reason Onset Date Comments order needed 07/14/2025 Encounter Details Date Type Department Care Team ([facility] st Contact Info) Description 07/14/2025 Telephone [facility] MEDICINE [address] [place], [place] [phone] Chato Thomason MD 505 [place] [address] order needed Social History Tobacco Use Types Packs/Day Years [...] Telephone Encounter - Nusrat Root RN - 07/19/2025 4:21 PM EDT Placed call to interventional radiology in [facility] regarding message below. IR stated that if pt is requesting to re-insert G-tube, a intake form from their office needs to be filled out. Provided fax tonurse's station here and awaiting incoming fax for PCP to fill. * Telephone Encounter - Barney Macdonald - 07/19/2025 8:09 AM EDT Tc from pt mom requesting a call back to discuss prior message Contact pt mom at [phone] * Telephone Encounter - Jeffrey Devine - 07/14/2025 4:04 PM EDT TC from linda MATTHEWS calling requesting Order for [facility] to insert Gtube . ORDER must be addressed to Margaret weber. documented in this encounter Plan of Treatment Upcoming Encounters Date Type Department Care Team (Late st Contact Info) Description 07/27/2025 1:30 PM EDT Office Visit [facility] ADULT DENTAL [address] [place] [address] Joe Nash DMD [address] [place] [address] 07/28/2025 11:00 AM EDT Clinical Support [facility] MED & PEDS [address] [place] [address] Linda Pelaez RN 505 [place] [address] 08/11/2025 10:30 AM EDT Office Visit [facility] MED & PEDS [address] [place] [address] Chato Thomason MD 505 [place] [address] 09/12/2025 1:30 PM EST Telemedicine [facility] MED & PEDS [address] [place] [address] Linda Pelaez RN 505 [place] [address] documented as of this encounter Visit Diagnoses Not on filedocumented in this encounter Additional Health Concerns Assessment Noted Time PHQ-9 Depression Total Score: 19 024 3:44 PM EDT documented as of this encounter Care Teams Golf Range Attendant Relationship Specialty Start Date End Date Chato Thomason MD 505 [place] [address] PCP - General Internal Medicine 10/27/18 Mackenzie Roland Security Nurse 07/09/24 [facility] 06/12/23 Ezekiel Patricia Security NurseDrying Can Worker 06/13/25 documented as of this encounter
--- OUTSIDE RECORDS SUMMARY | 2025-07-20 16:26 | XMS_ITS | Encounter Summary ---
Author Organization [employer] Address [address] [facility] 7t [place] [address] Care Team Providers Care Heading Machine Operator Name Role Phone Chato Thomason MD Primary Care Provider [phone] Kelsey Minaya Unavailable Encounter Details Date Type Department Care Team ([facility] st Contact Info) Description 03/19/2024 Orders Only [facility] MED & PEDS [address] [place] [address] ProviderColleen MD Social History Tobacco [...] Description 07/27/2025 1:30 PM EDT Office Visit [facility] ADULT DENTAL 505 [place] [address] Joe Nash, KARIN 505 [place] [address] 07/28/2025 11:00 AM EDT Clinical Support [facility] MED & PEDS [address] [place] [address] Linda Pelaez RN 505 [place] [address] 08/11/2025 10:30 AM EDT Office Visit [facility] MED & PEDS [address] [place] [address] Chato Thomason MD 505 [place] [address] 09/12/2025 1:30 PM EST Telemedicine [facility] MED & PEDS [address] [place] [address] Linda Pelaez, WALT 505 [place] [address] documented as of this encounter Procedures Procedure Name Priority Date/Time Associated Diagnosis Comments SURGICAL PATHOLOGY Routine 03/15/2024 9:13 AM EDT documented in this encounter Results * Surgical Pathology (03/15/2024 9:13 AM EDT) Historical Provider LAB PATHOLOGY ORDERABLES Final Result documented in this encounter Visit Diagnoses Not on filedocumented in this encounter Care Teams Heading Machine Operator Relationship Specialty Start Date End Date Chato Thomason MD [address] [place] [address] PCP - General Internal Medicine 10/27/18 Kelsey Minaya Community Health Worker 06/08/2407/07 Eliane Metzger Wooden Furniture PolisherSoftware Developer Consultant 01/29/24 07/08/24 Mackenzie Roland Wooden Furniture Polisher 07/09/24 Angela Pozo Wooden Furniture Polisher 07/09/24 06/12/25 [facility] 06/12/23 Ezekiel Patricia Wooden Furniture PolisherSoftware Developer Consultant 06/13/25 documented as of this encounter
--- OUTSIDE RECORDS SUMMARY | 2025-07-20 16:26 | XMS_ITS | Encounter Summary ---
Author Organization [employer] Address 75 [facility] 7 [place] [address] Care Team Providers Care Shank Pinner Name Role Phone Chato Thomason MD Primary Care Provider [phone] Reason for Visit * Reason Onset Date Comments PT1 02/04/2025 Encounter Details Date Type Department Care Team ([facility] st Contact Info) Description 02/04/2025 Telephone [facility] MEDICINE 230 [place], [place] [phone] Chato Thomason MD 505 [place], [place] [phone] PT1 Social History Tobacco Use Types Packs/Day [...] Yes Provider name or facility name: [address] [place] [address] Escort needed: Y/N: Yes Do you have a wheelchair: Y/N: No If yes- Manual or electric: N/A Visits: ( 1x weekly) Patient calling requesting PT1 Home Address verified: Y/N: Yes Provider name or facility name: [address] [place] [address] Escort needed: Y/N: Yes Do you have a wheelchair: Y/N: No If yes- Manual or electric: N/A Visits: ( 1x month) documented in this encounter Plan of Treatment Upcoming Encounters Date Type Department Care Team (Late st Contact Info) Description 07/27/2025 1:30 PM EDT Office Visit [facility] ADULT DENTAL [address] [place] [address] Joe Nash, KARIN 505 [place] [address] 07/28/2025 11:00 AM EDT Clinical Support [facility] MED & PEDS 505 [place] [address] Linda Pelaez, WALT 505 [place] [address] 08/11/2025 10:30 AM EDT Office Visit [facility] MED & PEDS [address] [place] [address] Chato Thomason MD 505 [place] [address] 09/12/2025 1:30 PM EST Telemedicine [facility] MED & PEDS 505 [place] [address] Linda Pelaez RN 505 [place] [address] documented as of this encounter Visit Diagnoses Not on filedocumented in this encounter Additional Health Concerns Assessment Noted Time PHQ-9 Depression Total Score: 19 024 3:44 PM EDT documented as of this encounter Care Teams Shank Pinner Relationship Specialty Start Date End Date Chato Thomason MD 505 [place] [address] PCP - General Internal Medicine 10/27/18 Mackenzie Roland Operating Room Aide 07/09/24 Angela Pozo Operating Room Aide 07/09/24 06/12/25 [facility] 06/12/23 Ezekiel Patricia Operating Room AideMexican Food Machine Tender 06/13/25 documented as of this encounter
--- OUTSIDE RECORDS SUMMARY | 2025-07-20 16:26 | XMS_ITS | Encounter Summary ---
Author Organization [employer] Address 75 [facility] 7 [place] [address] Care Team Providers Care Pouako Kura [place] Maori Name Role Phone Chato Thomason MD Primary Care Provider [phone] Kelsey Minaya Unavailable Reason for Visit * Reason Onset Date Comments Paperwork/Forms 02/02/2024 Encounter Details Date Type Department Care Team ([facility] st Contact Info) Description 02/02/2024 Telephone [facility] MEDICINE [address] [place] [address] Chato Thomason MD [address] [place], [place] [phone] Paperwork/Forms Social History Tobacco Use Types Packs/Day [...] - 02/02/2024 10:48 AM EDT Tc from [place] [facility] requesting status of the Transfer Summary that was faxed over on 12/01 the order number is [id number] needs to be completed and signed by the provider as soon as possible and to be faxed to [phone] documented in this encounter Plan of Treatment Upcoming Encounters Date Type Department Care Team (Late st Contact Info) Description 07/27/2025 1:30 PM EDT Office Visit [facility] ADULT DENTAL [address] [place] [address] Joe Nash DMD [address] [place] [address] 07/28/2025 11:00 AM EDT Clinical Support [facility] MED & PEDS [address] [place] [address] Linda Pelaez RN 505 [place] [address] 08/11/2025 10:30 AM EDT Office Visit [facility] MED & PEDS [address] [place] [address] Chato Thomason MD 505 [place] [address] 09/12/2025 1:30 PM EST Telemedicine [facility] MED & PEDS [address] [place] [address] Linda Pelaez RN [address] [place] [address] documented as of this encounter Visit Diagnoses Not on filedocumented in this encounter Care Teams Pouako Kura [place] Maori Relationship Specialty Start Date End Date Chato Thomason MD 505 [place] [address] PCP - General Internal Medicine 10/27/18 Kelsey Minaya Community Health Worker 06/08/2407/07 Eliane Metzger Patient Care CoordinatorDesktop Publishing Associate 01/29/24 07/08/24 Mackenzie Roland Patient Care Coordinator 07/09/24 Angela Pozo Patient Care Coordinator 07/09/24 06/12/25 [facility] 06/12/23 Ezekiel Patricia Patient Care CoordinatorDesktop Publishing Associate 06/13/25 documented as of this encounter
--- OUTSIDE RECORDS SUMMARY | 2025-07-20 16:26 | XMS_ITS | Encounter Summary ---
Author Organization [employer] Address [address] [place] [address] Care Team Providers Care Pillow Cleaner Name Role Phone Chato Thomason MD Primary Care Provider [phone] Kelsey Minaya Unavailable Reason for Referral * Consultation (Routine) - Closed Specialty Diagnoses / Procedures Referred By Maryana singh Referred To Contact Occupational Therapy Diagnoses Lymphedema Chato Thomason MD [address] [place] [address] Phone: tel: fax: [facility] [address] [place] [address] Phone: tel: fax: Referral ID Status Reason Start Date Expiration Date V isits Requested Visits Authorized [id number] Closed Specialty Services Required 07/16/2024 07/16/2025 1 1 Encounter Details Date Type Department Care Team (Late st Contact Info) Description 07/07/2024 Orders Only [facility] MED & PEDS [address] [place], [place] [phone] Chato Thomason MD [address] [place], [place] [phone] Anxiety (Primary Dx); Lymphedema Social History Tobacco [...] Visit [facility] ADULT DENTAL [address] [place] [address] Joe Nash DMD 505 [place] [address] 07/28/2025 11:00 AM EDT Clinical Support [facility] MED & PEDS [address] [place] [address] Linda Pelaez, WALT 505 [place] [address] 08/11/2025 10:30 AM EDT Office Visit [facility] MED & PEDS [address] [place] [address] Chato Thomason MD 505 [place] [address] 09/12/2025 1:30 PM EST Telemedicine [facility] MED & PEDS [address] [place] [address] Linda Pelaez RN 505 [place] [address] Scheduled Referrals Name Type Priority Associated Diagnoses Order Schedule Referral to Occupational Therapy Outpatient Referral Routine Lymphedema Expected: 07/16/2024 (Approximate), Expires: 07/16/2025 documented as of this encounter Visit Diagnoses Diagnosis Anxiety- Primary Anxiety state, unspecified Lymphedema Other noninfectious lymphedema documented in this encounter Care Teams Pillow Cleaner Relationship Specialty Start Date End Date Chato Thomason MD [address] [place] [address] PCP - General Internal Medicine 10/27/18 Kelsey Minaya Community Health Worker 06/08/2407/07 Eliane Metzger Watch InspectorCrime Data Specialist 01/29/24 07/08/24 Mackenzie Roland Watch Inspector 07/09/24 Angela Pozo Watch Inspector 07/09/24 06/12/25 [facility] 06/12/23 Ezekiel Patricia Watch InspectorCrime Data Specialist 06/13/25 documented as of this encounter
--- OUTSIDE RECORDS SUMMARY | 2025-07-20 16:26 | XMS_ITS | Encounter Summary ---
Author Organization [employer] Address 75 [facility] 7t [place] [address] Care Team Providers Care Ice Cream Vendor Name Role Phone Chato Thomason MD Primary Care Provider [phone] Kelsey Minaya Unavailable Encounter Details Date Type Department Care Team ([facility] st Contact Info) Description 03/01/2024 Orders Only [facility] MED & PEDS [address] [place], [place] [phone] ProviderColleen MD Social History Tobacco Use Types [...] 1:30 PM EDT Office Visit [facility] ADULT DENTAL [address] [place] [address] Joe Nash, DMD [address] [place] [address] 07/28/2025 11:00 AM EDT Clinical Support [facility] MED & PEDS [address] [place] [address] Linda Pelaez, WALT [address] [place] [address] 08/11/2025 10:30 AM EDT Office Visit [facility] MED & PEDS [address] [place] [address] Chato Thomason MD 505 [place] [address] 09/12/2025 1:30 PM EST Telemedicine [facility] MED & PEDS [address] [place] [address] Linda Pelaez, WALT [address] [place] [address] documented as of this encounter Procedures Procedure [...] filedocumented in this encounter Care Teams Ice Cream Vendor Relationship Specialty Start Date End Date Chato Thomason MD [address] [place] [address] PCP - General Internal Medicine 10/27/18 Kelsey Minaya Community Health Worker 06/08/2407/07 Eliane Metzger Carding SupervisorHand Ironer 01/29/24 07/08/24 Mackenzie Roland Carding Supervisor 07/09/24 Angela Pozo Carding Supervisor 07/09/24 06/12/25 [facility] 06/12/23 Ezekiel Patricia Carding SupervisorHand Ironer 06/13/25 documented as of this encounter
--- OUTSIDE RECORDS SUMMARY | 2025-07-20 16:26 | XMS_ITS | Encounter Summary ---
Author Organization [employer] Address [address] 7 [place] [address] Care Team Providers Care Public Health Registrar Name Role Phone Chato Thomason MD Primary Care Provider [phone] Reason for Visit * Reason Onset Date Comments pt1 07/19/2025 Encounter Details Date Type Department Care Team ([facility] Contact Info) Description 07/19/[address] [facility] MED & PEDS [address] [place], [place] [phone] Chato Thomason MD [address] [place], [place] [phone] pt1 Social History Tobacco Use Types Packs/Day [...] Telephone Encounter - Barney Macdonald - 07/19/2025 8:07 AM EDT Patient calling requesting PT1 Home Address verified: Y/N: Yes Provider name or facility name: [address] [place] [address] Escort needed: Y/N: Yes Do you have a wheelchair: Y/N: No If yes- Manual or electric: Visits: 3x a month documented in this encounter Plan of Treatment Upcoming Encounters Date Type Department Care Team ([facility] st Contact Info) Description 07/27/2025 1:30 PM EDT Office Visit [facility] ADULT DENTAL [address] [place] [address] Joe Nash DMD [address] [place] [address] 07/28/2025 11:00 AM EDT Clinical Support [facility] MED & PEDS [address] [place] [address] Linda Pelaez RN 505 [place] [address] 08/11/2025 10:30 AM EDT Office Visit [facility] MED & PEDS [address] [place] [address] Chato Thomason MD 505 [place] [address] 09/12/2025 1:30 PM EST Telemedicine [facility] MED & PEDS [address] [place] [address] Linda Pelaez RN 505 [place] [address] documented as of this encounter Visit Diagnoses Not on filedocumented in this encounter Additional Health Concerns Assessment Noted Time PHQ-9 Depression Total Score: 19 024 3:44 PM EDT documented as of this encounter Care Teams Public Health Registrar Relationship Specialty Start Date End Date Chato Thomason MD 505 [place] [address] PCP - General Internal Medicine 10/27/18 Mackenzie Roland Rod Buster Helper 07/09/24 [facility] 06/12/23 Ezekiel Patricia Rod Buster HelperMaritime Officer 06/13/25 documented as of this encounter
--- OUTSIDE RECORDS SUMMARY | 2025-07-20 16:26 | XMS_ITS | Encounter Summary ---
Author Organization [employer] Address [address] [facility] 7 [place] [address] Care Team Providers Care Bale Coverer Name Role Phone Chato Thomason MD Primary Care Provider [phone] Reason for Visit * Reason Onset Date Comments PT1 02/15/2025 Encounter Details Date Type Department Care Team ([facility] st Contact Info) Description 02/15/2025 Telephone [facility] MEDICINE [address] [place], [place] [phone] Chato Thomason MD 505 [place], [place] [phone] PT1 Social History Tobacco Use Types Packs/Day [...] Yes Provider name or facility name: [address] [place] [address] [facility] Escort needed: Y/N: Yes Do you have a wheelchair: Y/N: No If yes- Manual or electric: N/A Visits: (2x weekly) documented in this encounter Plan of Treatment Upcoming Encounters Date Type Department Care Team (Late st Contact Info) Description 07/27/2025 1:30 PM EDT Office Visit [facility] CHC ADULT DENTAL [address] [place] [address] Joe Nash, KARIN [address] [place] [address] 07/28/2025 11:00 AM EDT Clinical Support [facility] MED & PEDS [address] [place] [address] Linda Pelaez RN 505 [place] [address] 08/11/2025 10:30 AM EDT Office Visit [facility] MED & PEDS [address] [place] [address] Chato Thomason MD 505 [place] [address] 09/12/2025 1:30 PM EST Telemedicine [facility] MED & PEDS [address] [place] [address] Linda Pelaez RN 505 [place] [address] documented as of this encounter Visit Diagnoses Not on filedocumented in this encounter Additional Health Concerns Assessment Noted Time PHQ-9 Depression Total Score: 19 024 3:44 PM EDT documented as of this encounter Care Teams Bale Coverer Relationship Specialty Start Date End Date Chato Thomason MD 505 [place] [address] PCP - General Internal Medicine 10/27/18 Mackenzie Roland Blueprint Machine Operator 07/09/24 Angela Pozo Blueprint Machine Operator 07/09/24 06/12/25 [facility] 06/12/23 Ezekiel Patricia Blueprint Machine OperatorSafety Patrol Officer 06/13/25 documented as of this encounter
--- OUTSIDE RECORDS SUMMARY | 2025-07-20 16:26 | XMS_ITS | Encounter Summary ---
Author Organization [employer] Address [address] [facility] 7 [place] [address] Care Team Providers Care Cleaning And Washing Equipment Operator Name Role Phone Chato Thomason MD Primary Care Provider [phone] Kelsey Minaya Unavailable Reason for Visit * Reason Onset Date Comments Call Back Request 05/03/2024 Encounter Details Date Type Department Care Team ([facility] st Contact Info) Description 05/03/2024 Telephone [facility] MEDICINE [address] [place] [address] Chato Thomason MD 505 [place], [place] [phone] Call Back Request Social History Tobacco Use [...] 4:37 PM EDT Tc from Joyce with [facility] requesting call back to discuss new referral. Joyce stated carecoordination attempted to contact pt but he wasn't able to answer due to pt not being able to speak. Please contact Joyce at [phone]. documented in this encounter Plan of Treatment Upcoming Encounters Date Type Department Care Team (Late st Contact Info) Description 07/27/2025 1:30 PM EDT Office Visit [facility] ADULT DENTAL [address] [place] [address] Joe Nash DMD [address] [place] [address] 07/28/2025 11:00 AM EDT Clinical Support [facility] MED & PEDS [address] [place] [address] Linda Pelaez RN 505 [place] [address] 08/11/2025 10:30 AM EDT Office Visit [facility] MED & PEDS [address] [place] [address] Chato Thomason MD 505 [place] [address] 09/12/2025 1:30 PM EST Telemedicine [facility] MED & PEDS [address] [place] [address] Linda Pelaez, WALT 505 [place] [address] documented as of this encounter Visit Diagnoses Not on filedocumented in this encounter Care Teams Cleaning And Washing Equipment Operator Relationship Specialty Start Date End Date Chato Thomason MD 505 [place] [address] PCP - General Internal Medicine 10/27/18 Kelsey Minaya Community Health Worker 06/08/2407/07 Eliane Metzger Hoop CoilerSwatch Paster 01/29/24 07/08/24 Mackenzie Roland Hoop Coiler 07/09/24 Angela Pozo Hoop Coiler 07/09/24 06/12/25 [facility] 06/12/23 Ezekile Patricia Hoop CoilerSwatch Paster 06/13/25 documented as of this encounter
--- OUTSIDE RECORDS SUMMARY | 2025-07-20 16:26 | XMS_ITS | Encounter Summary ---
Author Organization [employer] Address [address] [place] [address] Care Team Providers Care Wig Maker Name Role Phone Chato Thomason MD Primary Care Provider [phone] Reason for Referral * Consultation (Routine) - Closed Specialty Diagnoses / Procedures Referred By Maryana singh Referred To Contact Occupational Therapy Diagnoses Neuropathic pain Physical deconditioning Chato Thomason MD 505 [place] [address] Phone: tel: fax: [facility] [address] Phone: tel: fax: Referral ID Status Reason Start Date Expiration Date V isits Requested Visits Authorized [id number] Closed Specialty Services Required 03/03/2025 03/03/2026 1 1 * Consultation (Routine) - Closed Specialty Diagnoses / Procedures Referred By Maryana singh Referred To Contact Physical Therapy Diagnoses Neuropathic pain Physical deconditioning Chato Thomason MD [address] [place] [address] Phone: tel: fax: [facility] [address] Phone: tel: fax: Referral ID Status Reason Start Date Expiration Date V isits Requested Visits Authorized [id number] Closed Specialty Services Required 02/21/2025 02/21/2026 20 20 Encounter Details Date Type Department Care Team (Late st Contact Info) Description 02/17/2025 Orders Only [facility] CHC MED & PEDS [address] [place] [address] Chato Thomason MD [address] [place] [address] Neuropathic pain (Primary Dx); Physical deconditioning Social [...] Description 07/27/2025 1:30 PM EDT Office Visit [facility] ADULT DENTAL [address] [place] [address] Joe Nash, DMD [address] [place] [address] 07/28/2025 11:00 AM EDT Clinical Support [facility] MED & PEDS [address] [place] [address] Linda Pelaez RN 505 [place] [address] 08/11/2025 10:30 AM EDT Office Visit [facility] MED & PEDS [address] [place] [address] Chato Thomason MD 505 [place] [address] 09/12/2025 1:30 PM EST Telemedicine [facility] MED & PEDS [address] [place] [address] Linda Pelaez RN 505 [place] [address] Scheduled Referrals Name Type Priority Associated Diagnoses [...] documented as of this encounter Care Teams Wig Maker Relationship Specialty Start Date End Date Chato Thomason MD [address] [place] [address] PCP - General Internal Medicine 10/27/18 Mackenzie Roland Education Paraprofessional 07/09/24 Angela Pozo Education Paraprofessional 07/09/24 06/12/25 [facility] 06/12/23 Ezekiel Patricia Education ParaprofessionalExport Sales Assistant 06/13/25 documented as of this encounter
--- OUTSIDE RECORDS SUMMARY | 2025-07-20 16:26 | XMS_ITS | Encounter Summary ---
Author Organization [employer] Address [address] [facility] 7 [place] [address] Care Team Providers Care Health Inspector Food Name Role Phone Chato Thomason MD Primary Care Provider [phone] Reason for Visit * Reason Onset Date Comments Med Refill 02/21/2025 Encounter Details Date Type Department Care Team ([facility] st Contact Info) Description 02/21/[address] [facility] MEDICINE [address] [place], [place] [phone] Chato Thomason MD [address] [place], [place] [phone] Med Refill Social History Tobacco Use Types [...] 1 MG tablet To be sent to: [facility] - [place], [place] - [address] [place] [address] documented in this encounter Plan of Treatment Upcoming Encounters Date Type Department Care Team ([facility] st Contact Info) Description 07/27/2025 1:30 PM EDT Office Visit [facility] ADULT DENTAL [address] [place] [address] Joe Nash DMD [address] [place] [address] 07/28/2025 11:00 AM EDT Clinical Support [facility] MED & PEDS [address] [place] [address] Linda Pelaez RN 505 [place] [address] 08/11/2025 10:30 AM EDT Office Visit [facility] MED & PEDS [address] [place] [address] Chato Thomason MD 505 [place] [address] 09/12/2025 1:30 PM EST Telemedicine [facility] MED & PEDS [address] [place] [address] Linda Pelaez, WALT 505 [place] [address] documented as of this encounter Visit Diagnoses Not on filedocumented in this encounter Additional Health Concerns Assessment Noted Time PHQ-9 Depression Total Score: 19 024 3:44 PM EDT documented as of this encounter Care Teams Health Inspector Food Relationship Specialty Start Date End Date Chato Thomason MD [address] [place] [address] PCP - General Internal Medicine 10/27/18 Mackenzie Roland Sociology Research Assistant 07/09/24 Angela Pozo Sociology Research Assistant 07/09/24 06/12/25 [facility] 06/12/23 Ezekiel Patricia Sociology Research AssistantFinisher Card Tender 06/13/25 documented as of this encounter
== END 2025-07-20 15:15 | disposition home or self-care (01) ==
LOC: HO.HPSW 13:55
PROVIDERS: PCP Internal Medicine; Visit Provider Nurse Practitioner Family
DX: Z85.21 Personal history of malignant neoplasm of larynx (principal); J44.9 Chronic obstructive pulmonary disease, unspecified; R06.00 Dyspnea, unspecified; Z90.02 Acquired absence of larynx
CPT/HCPCS: 99204

== ENCOUNTER → 2025-07-20 13:54 | Outpatient (BNVA) | payer MEDICAID, SELFPAY | PROVIDERS: PCP Internal Medicine; Visit Provider Nurse Practitioner Family | DX: C32.9 Malignant neoplasm of larynx, unspecified (principal); R06.00 Dyspnea, unspecified; J44.9 Chronic obstructive pulmonary disease, unspecified; Z90.02 Acquired absence of larynx; Z92.21 Personal history of antineoplastic chemotherapy; Z92.3 Personal history of irradiation | CPT/HCPCS: 99212 ==

== ENCOUNTER 2025-08-01 09:52 | Outpatient (AMB) | payer MEDICAID, SELFPAY ==
--- NOTE | 2025-08-01 10:56 | MHC.OFFVIS ---
Vital Signs 08/01/25 10:57 Pulse 77 Pulse Source Pulse Oximeter Pulse Oximetry (%) 92 Oxygen Delivery Method Room Air Intake Visit Reasons: 6MWT Control Systems Designer Required: No Allergies lisinopril Allergy (Unknown, Verified 08/01/25 10:57) Swelling Medication List - Last Reconciled 08/01/25 by Bessy Hopkins LPN albuterol sulfate 2.5 mg inhalation Q4H PRN albuterol sulfate 90 mcg/actuation (Ventolin HFA) 2 puffs inhalation Q6H PRN amoxicillin-pot clavulanate 400-57 mg/5 mL 10 mL PO BID dupilumab (Dupixent) 300 mg subcut Q2W famotidine 40 mg PO BID gabapentin 750 mg PO Q8H hydroxyzine HCl 50 mg PO BEDTIME lorazepam 0.5 mg PO BID PRN melatonin 10 mg PO DAILY PRN methadone 125 mg PO DAILY oxycodone 7.5 mg PO Q6H PRN trazodone 50 mg PO BEDTIME PRN PFSH Medical History (Updated 08/01/25 @ 10:55 by Kat Bianchi NP) Hx of radiation therapy History of chemotherapy intermission coordinator use of opioid Lymphatic edema PTSD (post-traumatic stress disorder) Bronchitis SCC (squamous cell carcinoma) Hearing loss Eczema Depression Anxiety Severe episode of recurrent major depressive disorder Fistula GERD (gastroesophageal reflux disease) Dehiscence of wound Squamous cell carcinoma of larynx Osteoarthritis Hypertension Hypercholesterolemia COPD (chronic obstructive pulmonary disease) Simple chronic bronchitis Surgical History (Updated 07/25/25 @ 10:04 by Kat Bianchi NP) S/P percutaneous endoscopic gastrostomy (PEG) tube placement Hx of tracheostomy Hx of skin graft History of abdominal wall debridement History of radical neck dissection (~01/27/24) Hx of tonsillectomy History of esophagogastroduodenoscopy (EGD) Hx of tooth extraction Hx of laryngectomy (~03/15/24) Social History Comment: cold pack applied Patient Tobacco Use Status: Former Tobacco user Substance Use Type: Other Physical Exam Vital Signs: Last Vital Signs Pulse 77 08/01/25 10:57 Pulse Ox 92 08/01/25 10:57 Oxygen Delivery Method Room Air 08/01/25 10:57 Office Procedures 6 Minute Walk Time:: 10:40 SPO2 % at rest: 92 Pulse at rest: 77 SPO2 % during excercise: 90 Pulse during excercise: 103 SPO2 % after excercise: 95 Pulse after excercise: 88 Distance in yards walked: 400 Yamileth Score: 2 Performance Observations:: Lawrence walked on level ground unassisted, he walked at a steady pace, on room air. He maintained his SPO2 90-93% for the entire walk. No supplemental O2 needed. [address] - 6 Minute Walk Assessment & Plan Assessment & Plan (1) COPD (chronic obstructive pulmonary disease): Code(s): J44.9 - Chronic obstructive pulmonary disease, unspecified Category: Medical Plan nurse visit for 6MWT Orders: Orders AMB 6 minute walk Today J44.9 - Chronic obstructive pulmonary disease, unspecified Coding Level of Care Code Established Pt Est Pt Level 1 (07406) Patient Type Established Diagnoses COPD (chronic obstructive pulmonary disease) J44.9 CPT Codes Coding ([id number]) Comment NURSE VISIT ONLY
[2025-08-01 10:57] VITALS: PULSE 77; O2SAT 92
[2025-08-01 10:59] VITALS: PULSE 77; O2SAT 92
--- OUTSIDE RECORDS SUMMARY | 2025-08-01 11:17 | XMS_ITS | Encounter Summary ---
Author Organization [employer] Address [address] [place] [address] 7 [place] [address] Care Team Providers Care Shop Cooper Name Role Phone Chato Thomason MD Primary Care Provider [phone] Kelsey Minaya Unavailable Encounter Details Date Type Department Care Team (Late Contact Info) Description 12/04/2022 Abstract [facility] MEDICINE [address] [place], [place] [phone] Chato Thomason MD 505 [place] [address] Social History Tobacco Use Types Packs/Day Years [...] Care Team (Late st Contact Info) Description 08/11/2025 10:30 AM EDT Office Visit [facility] CHC MED & PEDS [address] [place] [address] Chato Thomason MD 505 [place] [address] 08/25/2025 2:30 PM EDT Clinical Support [facility] MED & PEDS 505 [place] [address] Linda Pelaez, WALT 505 [place] [address] 09/12/2025 1:30 PM EST Telemedicine [facility] MED & PEDS 505 [place] [address] Linda Pelaez RN 505 [place] [address] documented as of this encounter Visit Diagnoses Not on filedocumented in this encounter Care Teams Shop Cooper Relationship Specialty Start Date End Date Chato Thomason MD 505 [place] [address] PCP - General Internal Medicine 10/27/18 Kelsey Minaya Community Health Worker 06/08/2407/07 Eliane Metzger Poultry BreederDiesel Motor Mechanic 01/29/24 07/08/24 Mackenzie Roland Poultry Breeder 07/09/24 Angela Pozo Poultry Breeder 07/09/24 06/12/25 [facility] 06/12/23 Ezekiel Patricia Poultry BreederDiesel Motor Mechanic 06/13/25 documented as of this encounter
--- OUTSIDE RECORDS SUMMARY | 2025-08-01 11:17 | XMS_ITS | Encounter Summary ---
Author Organization [employer] Address [address] [facility] 7 [place] [address] Care Team Providers Care Golf Stud Riveter Name Role Phone Chato Thomason MD Primary Care Provider [phone] Reason for Visit * Reason Onset Date Comments Appointment Request 07/27/2025 Encounter Details Date Type Department Care Team ([facility] st Contact Info) Description 07/27/2025 Telephone [facility] MEDICINE 230 [place], [place] [phone] Chato Thomason MD 505 [place] [address] Appointment Request Social History Tobacco Use Types Packs/Day [...] * Telephone Encounter - Juliet Todd - 07/27/2025 8:29 AM EDT Tc from pt requesting an call back in regard of appointment from 07/28/25. Mom cancel due to pt justgot out of surgery. Contact pt Mom at [phone] documented in this encounter Plan of Treatment Upcoming Encounters Date Type Department Care Team ([facility] st Contact Info) Description 08/11/2025 10:30 AM EDT Office Visit [facility] MED & PEDS [address] [place] [address] Chato Thomason MD 505 [place] [address] 08/25/2025 2:30 PM EDT Clinical Support [facility] MED & PEDS [address] [place] [address] Linda Pelaez RN 505 [place] [address] 09/12/2025 1:30 PM EST Telemedicine [facility] MED & PEDS [address] [place] [address] Linda Pelaez, WALT [address] [place] [address] documented as of this encounter Visit Diagnoses Not on filedocumented in this encounter Additional Health Concerns Assessment Noted Time PHQ-9 Depression Total Score: 19 024 3:44 PM EDT documented as of this encounter Care Teams Golf Stud Riveter Relationship Specialty Start Date End Date Chato Thomason MD 505 [place] [address] PCP - General Internal Medicine 10/27/18 Mackenzie Roland Superintendent Circus 07/09/24 [facility] 06/12/23 Ezekiel Patricia Superintendent CircusPrimary Care Nurse 06/13/25 documented as of this encounter
--- OUTSIDE RECORDS SUMMARY | 2025-08-01 11:17 | XMS_ITS | Encounter Summary ---
Author Organization [employer] Address [address] [place] [address] 7t [place] [address] Care Team Providers Care Speech Language Pathologist Travel Name Role Phone Chato Thomason MD Primary Care Provider [phone] Encounter Details Date Type Department Care Team ([facility] st Contact Info) Description 07/22/2024 Orders Only [facility] CHC MED & PEDS [address] [place], [place] [phone] Chato Thomason MD 505 [place], [place] [phone] Anxiety Social History Tobacco Use Types Packs/Day [...] t he electric, gas, oil or water [employer] threatened to shut off services in your [...] Description 08/11/2025 10:30 AM EDT Office Visit [facility] MED & PEDS [address] [place] [address] Chato Thomason MD [address] [place] [address] 08/25/2025 2:30 PM EDT Clinical Support [facility] MED & PEDS 505 [place] [address] Linda Pelaez RN 505 [place] [address] 09/12/2025 1:30 PM EST Telemedicine [facility] MED & PEDS [address] [place] [address] Linda Pelaez RN 505 [place] [address] documented as of this encounter Visit Diagnoses Diagnosis Anxiety Anxiety state, unspecified documented in this encounter Care Teams Speech Language Pathologist Travel Relationship Specialty Start Date End Date Chato Thomason MD 505 [place] [address] PCP - General Internal Medicine 10/27/18 Mackenzie Roland Automatic Pattern Edger 07/09/24 Angela Pozo Automatic Pattern Edger 07/09/24 06/12/25 [facility] 06/12/23 Ezekiel Patricia Automatic Pattern EdgerCloth Reeler 06/13/25 documented as of this encounter
--- OUTSIDE RECORDS SUMMARY | 2025-08-01 11:17 | XMS_ITS | Encounter Summary ---
Author Organization [employer] Address [address] [place] [address] Care Team Providers Care Inventory Accountant Name Role Phone Chato Thomason MD Primary Care Provider [phone] Reason for Referral * Consultation (Routine) - Closed Specialty Diagnoses / Procedures Referred By Maryana singh Referred To Contact Ophthalmology Diagnoses Primary hypertension Chato Thomason MD [address] [place] [address] Phone: tel: fax: [facility] [address] [place] [address] Phone: tel:[phone] fax: Referral ID Status Reason Start Date Expiration Date V isits Requested Visits Authorized [id number] Closed Specialty Services Required 10/01/2024 10/01/2025 1 1 * Consultation (Urgent) - Closed Specialty Diagnoses / Procedures Referred By Maryana singh Referred To Contact Pharmacy Diagnoses Spongiotic dermatitis Chronic bronchitis, unspecified chronic bronchitis type (CMS/HCC) (HCC) Hypercholesterolemia Primary hypertension Chato Thomason MD [address] [place] [address] Phone: tel: fax: Referral ID Status Reason Start Date Expiration Date V isits Requested Visits Authorized [id number] Closed Continuity of Care 10/01/2024 10/01/2025 6 6 Encounter Details Date Type Department Care Team (Late st Contact Info) Description 10/01/2024 Orders Only [facility] CHC MED & PEDS [address] [place] [address] Chato Thomason MD [address] [place] [address] Spongiotic dermatitis (Primary Dx); Chronic bronchitis, unspecified [...] Upcoming Encounters Date Type Department Care Team ([facility] Contact Info) Description 08/11/2025 10:30 AM EDT Office Visit [facility] MED & PEDS [address] [place] [address] Chato Thomason MD [address] [place] [address] 08/25/2025 2:30 PM EDT Clinical Support [facility] MED & PEDS [address] [place] [address] Linda Pelaez RN 505 [place] [address] 09/12/2025 1:30 PM EST Telemedicine [facility] MED & PEDS [address] [place] [address] Linda Pelaez RN [address] [place] [address] Scheduled Referrals Name Type Priority Associated Diagnoses [...] Chronic bronchitis, unspecified chronic bronchitis type (CMS/HCC) (HCC) Hypercholesterolemia Pure hypercholesterolemia Primary hypertension Unspecified essential hypertension documented in this encounter Additional Health Concerns Assessment Noted Time PHQ-9 Depression Total Score: 19 024 3:44 PM EDT documented as of this encounter Care Teams Inventory Accountant Relationship Specialty Start Date End Date Chato Thomason MD [address] [place] [address] PCP - General Internal Medicine 10/27/18 Mackenzie Roland [facility] Help 07/09/24 Angela Pozo Front Office Help 07/09/24 06/12/25 [facility] 06/12/23 Ezekiel Patricia Front Office HelpVarnish Finisher 06/13/25 documented as of this encounter
--- OUTSIDE RECORDS SUMMARY | 2025-08-01 11:17 | XMS_ITS | Encounter Summary ---
Author Organization [employer] Address 75 [facility] 7t [place] [address] Care Team Providers Care Technical Specialist Cytology Name Role Phone Chato Thomason MD Primary Care Provider [phone] Encounter Details Date Type Department Care Team ([facility] st Contact Info) Description 08/05/2024 Orders Only [facility] MED & PEDS [address] [place], [place] [phone] Provider, MD Colleen Social History Tobacco Use [...] ([facility] st Contact Info) Description 08/11/2025 10:30 AM EDT Office Visit [facility] MED & PEDS 505 [place] [address] Chato Thomason MD 505 [place] [address] 08/25/2025 2:30 PM EDT Clinical Support [facility] MED & PEDS [address] [place] [address] Linda Pelaez RN 505 [place] [address] 09/12/2025 1:30 PM EST Telemedicine [facility] MED & PEDS [address] [place] [address] Linda Pelaez RN 505 [place] [address] documented as of this encounter Procedures Procedure [...] documented as of this encounter Care Teams Technical Specialist Cytology Relationship Specialty Start Date End Date Chato Thomason MD [address] [place] [address] PCP - General Internal Medicine 10/27/18 Mackenzie Roland Head Teller 07/09/24 Angela Pozo Head Teller 07/09/24 06/12/25 [facility] 06/12/23 Ezekiel Patricia Head TellerDye House Worker 06/13/25 documented as of this encounter
--- OUTSIDE RECORDS SUMMARY | 2025-08-01 11:17 | XMS_ITS | Encounter Summary ---
Author Organization [employer] Address [address] [place] [address] 7 [place] [address] Care Team Providers Care Administrative Tech Name Role Phone Chato Thomason MD Primary Care Provider [phone] Encounter Details Date Type Department Care Team ([facility] st Contact Info) Description 04/25/2025 Orders Only [facility] CHC MED & PEDS [address] [place], [place] [phone] Chato Thomason MD 505 [place], [place] [phone] Anxiety Social History Tobacco Use Types Packs/Day [...] Upcoming Encounters Date Type Department Care Team ([facility] st Contact Info) Description 08/11/2025 10:30 AM EDT Office Visit [facility] MED & PEDS [address] [place] [address] Chato Thomason MD 505 [place] [address] 08/25/2025 2:30 PM EDT Clinical Support [facility] MED & PEDS [address] [place] [address] Linda Pelaez RN 505 [place] [address] 09/12/2025 1:30 PM EST Telemedicine [facility] MED & PEDS [address] [place] [address] Linda Pelaez RN 505 [place] [address] documented as of this encounter Visit Diagnoses Diagnosis Anxiety Anxiety state, unspecified documented in this encounter Additional Health Concerns Assessment Noted Time PHQ-9 Depression Total Score: 19 024 3:44 PM EDT documented as of this encounter Care Teams Administrative Tech Relationship Specialty Start Date End Date Chato Thomason MD [address] [place] [address] PCP - General Internal Medicine 10/27/18 Mackenzie Roland Powder Room Attendant 07/09/24 Angela Pozo Powder Room Attendant 07/09/24 06/12/25 [facility] 06/12/23 Ezekiel Patricia Powder Room AttendantCloth Printing Back Tender 06/13/25 documented as of this encounter
--- OUTSIDE RECORDS SUMMARY | 2025-08-01 11:17 | XMS_ITS | Encounter Summary ---
Author Organization [employer] Address [address] [place] [address] 7t [place] [address] Care Team Providers Care Lining Stamper Name Role Phone Chato Thomason MD Primary Care Provider [phone] Encounter Details Date Type Department Care Team ([facility] st Contact Info) Description 05/11/2025 Orders Only [facility] CHC MED & PEDS [address] [place], [place] [phone] Chato Thomason MD 505 [place], [place] [phone] Social History Tobacco Use Types Packs/Day Years [...] Upcoming Encounters Date Type Department Care Team ([facility] st Contact Info) Description 08/11/2025 10:30 AM EDT Office Visit [facility] MED & PEDS [address] [place] [address] Chato Thmoason MD 505 [place] [address] 08/25/2025 2:30 PM EDT Clinical Support [facility] MED & PEDS 505 [place] [address] Linda Pelaez RN 505 [place] [address] 09/12/2025 1:30 PM EST Telemedicine [facility] MED & PEDS [address] [place] [address] Linda Pelaez RN 505 [place] [address] documented as of this encounter Visit Diagnoses Not on filedocumented in this encounter Additional Health Concerns Assessment Noted Time PHQ-9 Depression Total Score: 19 024 3:44 PM EDT documented as of this encounter Care Teams Lining Stamper Relationship Specialty Start Date End Date Chato Thomason MD [address] [place] [address] PCP - General Internal Medicine 10/27/18 Mackenzie Roland Transfer Controller 07/09/24 Angela Pozo Transfer Controller 07/09/24 06/12/25 [facility] 06/12/23 Ezekiel Patricia Transfer ControllerStripe Marker 06/13/25 documented as of this encounter
--- OUTSIDE RECORDS SUMMARY | 2025-08-01 11:17 | XMS_ITS | Encounter Summary ---
Author Organization [employer] Address 75 [facility] 7 [place] [address] Care Team Providers Care Take Away Man Name Role Phone Chato Thomason MD Primary Care Provider [phone] Reason for Visit * Reason Onset Date Comments Referral 08/05/2024 Encounter Details Date Type Department Care Team ([facility] st Contact Info) Description 08/05/2024 Telephone [facility] CHC MED & PEDS 505 [place], [place] [phone] Chato Thomason MD 505 [place] [address] Referral Social History Tobacco Use Types Packs/Day [...] requesting to re new referral to Location: [facility] Address: [address] [place], [place] [address] [address] documented in this encounter Plan of Treatment Upcoming Encounters Date Type Department Care Team ([facility] st Contact Info) Description 08/11/2025 10:30 AM EDT Office Visit [facility] MED & PEDS 505 [place] [address] Chato Thomason MD 505 [place] [address] 08/25/2025 2:30 PM EDT Clinical Support [facility] MED & PEDS 505 [place] [address] Linda Pelaez RN 505 [place] [address] 09/12/2025 1:30 PM EST Telemedicine [facility] CHC MED & PEDS [address] [place] [address] Linda Pelaez RN 505 [place] [address] documented as of this encounter Visit Diagnoses Not on filedocumented in this encounter Additional Health Concerns Assessment Noted Time PHQ-9 Depression Total Score: 19 024 3:44 PM EDT documented as of this encounter Care Teams Take Away Man Relationship Specialty Start Date End Date Chato Thomason MD 505 [place] [address] PCP - General Internal Medicine 10/27/18 Mackenzie Roland Silver Buffer 07/09/24 Angela Pozo Silver Buffer 07/09/24 06/12/25 [facility] 06/12/23 Ezekiel Patricia Silver BufferStraight Knife Machine Cutter 06/13/25 documented as of this encounter
--- OUTSIDE RECORDS SUMMARY | 2025-08-01 11:17 | XMS_ITS | Encounter Summary ---
Author Organization [employer] Address 75 [facility] 7 [place] [address] Care Team Providers Care Hair Designer Name Role Phone Chato Thomason MD Primary Care Provider [phone] Reason for Visit * Reason Comments Med Refill Encounter Details Date Type Department Care Team ([facility] st Contact Info) Description 04/25/2025 Refill [facility] MEDICINE [address] [place] [address] Chato Thomason MD 505 [place], [place] [phone] Anxiety Social History Tobacco Use Types Packs/Day [...] Upcoming Encounters Date Type Department Care Team ([facility] st Contact Info) Description 08/11/2025 10:30 AM EDT Office Visit [facility] MED & PEDS 505 [place] [address] Chato Thomason MD 505 [place] [address] 08/25/2025 2:30 PM EDT Clinical Support [facility] MED & PEDS 505 [place] [address] Linda Pelaez RN 505 [place] [address] 09/12/2025 1:30 PM EST Telemedicine [facility] MED & PEDS 505 [place] [address] Linda Pelaez RN 505 [place] [address] documented as of this encounter Visit Diagnoses Diagnosis Anxiety Anxiety state, unspecified documented in this encounter Additional Health Concerns Assessment Noted Time PHQ-9 Depression Total Score: 19 024 3:44 PM EDT documented as of this encounter Care Teams Hair Designer Relationship Specialty Start Date End Date Chato Thomason MD [address] [place] [address] PCP - General Internal Medicine 10/27/18 Mackenzie Roland Human Resources Psychologist 07/09/24 Angela Pozo Human Resources Psychologist 07/09/24 06/12/25 [facility] 06/12/23 Ezekiel Patricia Human Resources PsychologistChief Operating Engineer 06/13/25 documented as of this encounter
--- OUTSIDE RECORDS SUMMARY | 2025-08-01 11:17 | XMS_ITS | Clinical Summary ---
Author Organization [facility] Address [address] [place] [address] Phone Care Team Providers Care Site Promotion Agent Name Role Phone Physician, No Pcp Primary Care Provider Unavaila ble Active Problems Problem Noted Date Diagnosed Date Lymphatic edema 09/30/2024 Encounters Date Type Department Care Team Description 07/11/2025 1:30 PM EDT [facility] Occup[facility] [address] [place] [phone] Gijtaco, Nilam P, OTR/L Lymphatic edema (Primary Dx) 05/16/2025 1:30 PM EDT Treatment [facility] Occupational Therapy [address] [place] [phone] Gijzen, Nilam P, OTR/L Lymphedema of face (Primary Dx) 05/03/2025 11:00 AM EDT Treatment [facility] Occupational Therapy [address] [place] [phone] Gijzen, Nilam P, OTR/L Lymphedema of face [...] Upcoming Encounters Date Type Department Care Team ([facility] st Contact Info) Description 08/02/2025 1:30 PM EDT Treatment [facility] Occupational Therapy [address] [phone] Nilam Botello P, OTR/L 08/10/2025 2:30 PM EDT Treatment [facility] Occupational Therapy [address] [phone] Nilam Botello P, OTR/L 08/16/2025 1:30 PM EDT Treatment [facility] Occupational Therapy [address] [phone] Nilam Botello P, OTR/L 08/18/2025 10:00 AM EDT Evaluation [facility] Speech Therapy [address] [phone] Luisana Barnard, RIGGING UP WORKER Health Maintenance Due Date Last Done Comments Colorectal Cancer Screening: Colonoscopy 1966 COVID-19 Vaccine (#1) 1971 DTaP,Tdap,and Td Vaccines (1 - Tdap) 1985 Hepatitis B Vaccines (1 of 3 - 19+ 3-dose series) 1985 Pneumococcal Vaccine: 50+ Ye ars (1 of 2 - PCV) 1985 Zoster Vaccines (1 of 2) 1985 HIV Screening 11/21/2023 Hepatitis C Screening 11/21/2023 [...] General Improving( 2:26 PM EDT) No Nilam Botello P, OTR/L Note: STG [...] edema Insurance MEDICAID - [place] Care Teams Site Promotion Agent Relationship Specialty Start Date End Date Physician, No Pcp PCP - General 09/22/24
--- OUTSIDE RECORDS SUMMARY | 2025-08-01 11:17 | XMS_ITS | Encounter Summary ---
Author Organization [employer] Address [address] [place] [address] 7 [place] [address] Care Team Providers Care Scrap Metal Collector Name Role Phone Chato Thomason MD Primary Care Provider [phone] Reason for Visit * Reason Comments Med Refill Encounter Details Date Type Department Care Team ([facility] st Contact Info) Description 08/31/2024 Refill [facility] CHC MED & PEDS 505 [place], [place] [phone] Chato Thomason MD 505 [place], [place] [phone] Squamous cell carcinoma of larynx (CMS/HCC) (Primary [...] Upcoming Encounters Date Type Department Care Team ([facility] st Contact Info) Description 08/11/2025 10:30 AM EDT Office Visit [facility] MED & PEDS 505 [place] [address] Chato Thomason MD 505 [place] [address] 08/25/2025 2:30 PM EDT Clinical Support [facility] MED & PEDS 505 [place] [address] Linda Pelaez RN 505 [place] [address] 09/12/2025 1:30 PM EST Telemedicine [facility] MED & PEDS 505 [place] [address] Linda Pelaez RN 505 [place] [address] documented as of this encounter Visit Diagnoses Diagnosis 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 neoplasm of larynx, unspecified site Other insomnia Anxiety Anxiety state, unspecified History of laryngectomy Other postprocedural status documented in this encounter Additional Health Concerns Assessment Noted Time PHQ-9 Depression Total Score: 19 024 3:44 PM EDT documented as of this encounter Care Teams Scrap Metal Collector Relationship Specialty Start Date End Date Chato Thomason MD [address] [place] [address] PCP - General Internal Medicine 10/27/18 Mackenzie Roland Railroad Commissioner 07/09/24 Angela Pozo Railroad Commissioner 07/09/24 06/12/25 [facility] 06/12/23 Ezekiel Patricia Railroad CommissionerBusiness Analyst Ecommerce 06/13/25 documented as of this encounter
--- OUTSIDE RECORDS SUMMARY | 2025-08-01 11:17 | XMS_ITS | Encounter Summary ---
Author Organization [employer] Address [address] [place] [address] 7 [place] [address] Care Team Providers Care Developer Trading Systems Name Role Phone Chato Thomason MD Primary Care Provider [phone] Kelsey Minaya Unavailable Encounter Details Date Type Department Care Team (Late Contact Info) Description 12/04/2022 Abstract [facility] MEDICINE [address] [place], [place] [phone] Chato Thomason MD 505 [place] [address] Social History Tobacco Use Types Packs/Day Years [...] Description 08/11/2025 10:30 AM EDT Office Visit [facility] CHC MED & PEDS 505 [place] [address] Chato Thomason MD 505 [place] [address] 08/25/2025 2:30 PM EDT Clinical Support [facility] MED & PEDS [address] [place] [address] Linda Pelaez, WALT 505 [place] [address] 09/12/2025 1:30 PM EST Telemedicine [facility] MED & PEDS 505 [place] [address] Linda Pelaez RN 505 [place] [address] documented as of this encounter Visit Diagnoses Not on filedocumented in this encounter Care Teams Developer Trading Systems Relationship Specialty Start Date End Date Chato Thomason MD 505 [place] [address] PCP - General Internal Medicine 10/27/18 Kelsey Minaya Community Health Worker 06/08/2407/07 Eliane Metzger Barge WorkerCarbon Paper Machine Operator 01/29/24 07/08/24 Mackenzie Roland Barge Worker 07/09/24 Angela Pozo Barge Worker 07/09/24 06/12/25 [facility] 06/12/23 Ezekiel Patricia Barge WorkerCarbon Paper Machine Operator 06/13/25 documented as of this encounter
--- OUTSIDE RECORDS SUMMARY | 2025-08-01 11:17 | XMS_ITS | Encounter Summary ---
Author Organization [employer] Address 75 [facility] 7 [place] [address] Care Team Providers Care Pipe Bending Machine Operator Name Role Phone Chato Thomason MD Primary Care Provider [phone] Reason for Visit * Reason Onset Date Comments Call Back Request 07/26/2024 Encounter Details Date Type Department Care Team ([facility] st Contact Info) Description 07/26/2024 Telephone [facility] MEDICINE [address] [place], [place] [phone] Chato Thomason MD [address] [place], [place] [phone] Call Back Request Social History Tobacco Use [...] 1:57 PM EDT Tc from Mackenzie with [facility] requesting status on referral for [facility] stating it was discussedduring last visit. Please contact Mackenzie at [phone]. documented in this encounter Plan of Treatment Upcoming Encounters Date Type Department Care Team ([facility] st Contact Info) Description 08/11/2025 10:30 AM EDT Office Visit [facility] MED & PEDS [address] [place] [address] Chato Thomason MD 505 [place] [address] 08/25/2025 2:30 PM EDT Clinical Support [facility] MED & PEDS [address] [place] [address] Linda Pelaez RN 505 [place] [address] 09/12/2025 1:30 PM EST Telemedicine [facility] MED & PEDS [address] [place] [address] Linda Pelaez RN 505 [place] [address] documented as of this encounter Visit Diagnoses Not on filedocumented in this encounter Care Teams Pipe Bending Machine Operator Relationship Specialty Start Date End Date Chato Thomason MD [address] [place] [address] PCP - General Internal Medicine 10/27/18 Mackenzie Roland Clinical Biostatistician 07/09/24 Angela Pozo Clinical Biostatistician 07/09/24 06/12/25 [facility] 06/12/23 Ezekiel Patricia Clinical BiostatisticianCorrections Officer 06/13/25 documented as of this encounter
--- OUTSIDE RECORDS SUMMARY | 2025-08-01 11:17 | XMS_ITS | Encounter Summary ---
Author Organization [employer] Address 75 [facility] 7 [place] [address] Care Team Providers Care Head Golf Professional Name Role Phone Chato Thomason MD Primary Care Provider [phone] Kelsey Minaya Unavailable Reason for Visit * Reason Onset Date Comments Referral 03/27/2023 Encounter Details Date Type Department Care Team (Late st Contact Info) Description 03/27/2023 Telephone [facility] MEDICINE 230 [place] [address] Chato Thomason MD 505 [place], [place] [phone] Referral Social History Tobacco Use Types Packs/Day [...] - 03/27/2023 2:43 PM EDT Tc from [facility] requesting a referral. Date: 03/31/2023 Time: 10:15 AM Location: [address] [place] [address] Specialty: [facility] Hematology Oncology NPI Facility: [id number] Department: [id number] DX: Squamous cell Carcinoma of Epiglottis Phone #: [phone] Fax #: [phone] documented in this encounter Plan of Treatment Upcoming Encounters Date Type Department Care Team ([facility] st Contact Info) Description 08/11/2025 10:30 AM EDT Office Visit [facility] MED & PEDS [address] [place] [address] Chato Thomason MD 505 [place] [address] 08/25/2025 2:30 PM EDT Clinical Support [facility] MED & PEDS [address] [place] [address] Linda Pelaez RN 505 [place] [address] 09/12/2025 1:30 PM EST Telemedicine [facility] MED & PEDS [address] [place] [address] Linda Pelaez RN 505 [place] [address] documented as of this encounter Visit Diagnoses Not on filedocumented in this encounter Care Teams Head Golf Professional Relationship Specialty Start Date End Date Chato Thomason MD [address] [place] [address] PCP - General Internal Medicine 10/27/18 Kelsey Minaya Community Health Worker 06/08/2407/07 Eliane Metzger Doctor NaturopathicCredit Control Manager 01/29/24 07/08/24 Mackenzie Roland Doctor Naturopathic 07/09/24 Angela Pozo Doctor Naturopathic 07/09/24 06/12/25 [facility] 06/12/23 Ezekiel Patricia Doctor NaturopathicCredit Control Manager 06/13/25 documented as of this encounter
--- OUTSIDE RECORDS SUMMARY | 2025-08-01 11:17 | XMS_ITS | Encounter Summary ---
Author Organization [employer] Address 75 [facility] 7 [place] [address] Care Team Providers Care Six Color Press Operator Name Role Phone Chato Thomason MD Primary Care Provider [phone] Reason for Visit * Reason Onset Date Comments Medication Question 07/29/2025 Encounter Details Date Type Department Care Team ([facility] st Contact Info) Description 07/29/2025 Telephone [facility] MEDICINE 230 [place], [place] [phone] Chato Thomason MD 505 [place], [place] [phone] Medication Question Social History Tobacco Use Types [...] * Telephone Encounter - Juliet Todd - 07/29/2025 8:23 AM EDT Tc from pt mom stating the gabapentin (Neurontin) 250 MG/5ML solution is not working, now requesting a call Contact Mom at [phone] documented in this encounter Plan of Treatment Upcoming Encounters Date Type Department Care Team ([facility] st Contact Info) Description 08/11/2025 10:30 AM EDT Office Visit [facility] MED & PEDS 505 [place] [address] Chato Thomason MD 505 [place] [address] 08/25/2025 2:30 PM EDT Clinical Support [facility] MED & PEDS [address] [place] [address] Linda Pelaez RN 505 [place] [address] 09/12/2025 1:30 PM EST Telemedicine [facility] CHC MED & PEDS [address] [place] [address] Linda Pelaez, WALT 505 [place] [address] documented as of this encounter Visit Diagnoses Not on filedocumented in this encounter Additional Health Concerns Assessment Noted Time PHQ-9 Depression Total Score: 19 024 3:44 PM EDT documented as of this encounter Care Teams Six Color Press Operator Relationship Specialty Start Date End Date Chato Thomason MD 505 [place] [address] PCP - General Internal Medicine 10/27/18 Mackenzie Roland Piano Case Maker 07/09/24 [employer] [facility] 06/12/23 Ezekiel Patricia Piano Case MakerVineyard Supervisor 06/13/25 documented as of this encounter
--- OUTSIDE RECORDS SUMMARY | 2025-08-01 11:17 | XMS_ITS | Encounter Summary ---
Author Organization [employer] Address 75 [facility] 7 [place] [address] Care Team Providers Care Wheel Worker Name Role Phone Chato Thomason MD Primary Care Provider [phone] Reason for Visit * Reason Onset Date Comments Med Refill 07/29/2025 Encounter Details Date Type Department Care Team ([facility] st Contact Info) Description 07/29/2025 Refill [facility] MEDICINE 230 [place], [place] [phone] Chato Thomason MD 505 [place] [address] Social History Tobacco Use Types Packs/Day Years [...] Telephone Encounter - Juliet Todd - 07/29/2025 8:29 AM EDT TC from pt requesting medication refill. Medications needing refill : - LORazepam (Ativan) 0.5 MG tablet To be sent to: [facility] [place] MD - [address] [place] [address] documented in this encounter Plan of Treatment Upcoming Encounters Date Type Department Care Team ([facility] st Contact Info) Description 08/11/2025 10:30 AM EDT Office Visit [facility] MED & PEDS 505 [place] [address] Chato Thomason MD [address] [place] [address] 08/25/2025 2:30 PM EDT Clinical Support [facility] MED & PEDS 505 [place] [address] Linda Pelaez RN 505 [place] [address] 09/12/2025 1:30 PM EST Telemedicine [facility] CHC MED & PEDS 505 [place] [address] Linda Pelaez, WALT 505 [place] [address] documented as of this encounter Visit Diagnoses Not on filedocumented in this encounter Additional Health Concerns Assessment Noted Time PHQ-9 Depression Total Score: 19 024 3:44 PM EDT documented as of this encounter Care Teams Wheel Worker Relationship Specialty Start Date End Date Chato Thomason MD 505 [place] [address] PCP - General Internal Medicine 10/27/18 Mackenzie Roland Venetian Blind Machine Operator 07/09/24 [facility] 06/12/23 Ezekiel Patricia Venetian Blind Machine OperatorFinish Sander 06/13/25 documented as of this encounter
--- OUTSIDE RECORDS SUMMARY | 2025-08-01 11:17 | XMS_ITS | Encounter Summary ---
Author Organization [employer] Address [address] [facility] 7t [place] [address] Care Team Providers Care Control Valve Technician Name Role Phone Chato Thomason MD Primary Care Provider [phone] Encounter Details Date Type Department Care Team ([facility] st Contact Info) Description 10/04/2024 Orders Only [facility] CHC MED & PEDS [address] [place], [place] [phone] Provider, MD Colleen Social History Tobacco Use [...] Upcoming Encounters Date Type Department Care Team ([facility] st Contact Info) Description 08/11/2025 10:30 AM EDT Office Visit [facility] MED & PEDS [address] [place] [address] Chato Thomason MD 505 [place] [address] 08/25/2025 2:30 PM EDT Clinical Support [facility] MED & PEDS [address] [place] [address] Linda Pelaez RN 505 [place] [address] 09/12/2025 1:30 PM EST Telemedicine [facility] MED & PEDS [address] [place] [address] Linda Pelaez RN 505 [place] [address] documented as of this encounter Procedures Procedure [...] documented as of this encounter Care Teams Control Valve Technician Relationship Specialty Start Date End Date Chato Thomason MD [address] [place] [address] PCP - General Internal Medicine 10/27/18 Mackenzie Roland Electro Tech 07/09/24 Angela Pozo Electro Tech 07/09/24 06/12/25 [facility] 06/12/23 Ezekiel Patricia Electro TechChemical Dependency Professional 06/13/25 documented as of this encounter
--- OUTSIDE RECORDS SUMMARY | 2025-08-01 11:18 | XMS_ITS | Encounter Summary ---
Author Organization [employer] Address [address] 7t [place] [address] Care Team Providers Care Boiler Control Room Operator Name Role Phone Chato Thomason MD Primary Care Provider [phone] Kelsey Minaya Unavailable Encounter Details Date Type Department Care Team ([facility] Contact Info) Description 06/25/2024 Orders Only [facility] CHC MED & PEDS [address] [place], [place] [phone] ProviderColleen MD Social History Tobacco Use Types [...] 10:30 AM EDT Office Visit [facility] MED & PEDS 505 [place] [address] Chato Thomason MD 505 [place] [address] 08/25/2025 2:30 PM EDT Clinical Support [facility] MED & PEDS [address] [place] [address] Linda Pelaez RN 505 [place] [address] 09/12/2025 1:30 PM EST Telemedicine [facility] MED & PEDS [address] [place] [address] Linda Pelaez RN 505 [place] [address] documented as of this encounter Procedures Procedure [...] on filedocumented in this encounter Care Teams Boiler Control Room Operator Relationship Specialty Start Date End Date Chato Thomason MD 505 [place] [address] PCP - General Internal Medicine 10/27/18 Kelsey Minaya Community Health Worker 06/08/2407/07 Eliane Metzger Economics ProfessorAdjunct Lecturer 01/29/24 07/08/24 Mackenzie Roland Economics Professor 07/09/24 Angela Pozo Economics Professor 07/09/24 06/12/25 [facility] 06/12/23 Ezekiel Patricia Economics ProfessorAdjunct Lecturer 06/13/25 documented as of this encounter
--- OUTSIDE RECORDS SUMMARY | 2025-08-01 11:18 | XMS_ITS | Encounter Summary ---
Author Organization [employer] Address [address] [facility] 7 [place] [address] Care Team Providers Care Back Up Scan Coordinator Name Role Phone Chato Thomason MD Primary Care Provider [phone] Reason for Visit * Reason Onset Date Comments Med Refill 01/10/2025 Encounter Details Date Type Department Care Team ([facility] st Contact Info) Description 01/10/2025 Telephone [facility] MEDICINE [address] [place], [place] [phone] Chato Thomason MD 505 [place], [place] [phone] Med Refill Social History Tobacco Use Types [...] immediate release tablet To be sent to: [facility] - [address] documented in this encounter Plan of Treatment Upcoming Encounters Date Type Department Care Team ([facility] st Contact Info) Description 08/11/2025 10:30 AM EDT Office Visit [facility] MED & PEDS 505 [place] [address] Chato Thomason MD 505 [place] [address] 08/25/2025 2:30 PM EDT Clinical Support [facility] MED & PEDS 505 [place] [address] Linda Pelaez RN 505 [place] [address] 09/12/2025 1:30 PM EST Telemedicine [facility] CHC MED & PEDS [address] [place] [address] Linda Pelaez, WALT 505 [place] [address] documented as of this encounter Visit Diagnoses Not on filedocumented in this encounter Additional Health Concerns Assessment Noted Time PHQ-9 Depression Total Score: 19 024 3:44 PM EDT documented as of this encounter Care Teams Back Up Scan Coordinator Relationship Specialty Start Date End Date Chato Thomason MD 505 [place] [address] PCP - General Internal Medicine 10/27/18 Mackenzie Roland Sheriff Detective 07/09/24 Angela Pozo Sheriff Detective 07/09/24 06/12/25 [facility] 06/12/23 Ezekiel Patricia Sheriff DetectiveEquipment Validation Engineer 06/13/25 documented as of this encounter
--- OUTSIDE RECORDS SUMMARY | 2025-08-01 11:18 | XMS_ITS | Encounter Summary ---
Author Organization [employer] Address 75 [facility] 7 [place] [address] Care Team Providers Care Biofuels Product Manager Name Role Phone Chato Thomason MD Primary Care Provider [phone] Kelsey Minaya Unavailable Encounter Details Date Type Department Care Team (Late st Contact Info) Description 08/28/2023 Abstract [facility] MEDICINE 230 [place] [address] Chato Thomason MD 505 [place], [place] [phone] Social History Tobacco Use Types Packs/Day Years [...] the past 12 months, has t he [employer], gas, oil or water [employer] threatened to shut off services in your [...] Description 08/11/2025 10:30 AM EDT Office Visit [facility] MED & PEDS 505 [place] [address] Chato Thomason MD 505 [place] [address] 08/25/2025 2:30 PM EDT Clinical Support [facility] MED & PEDS 505 [place] [address] Linda Pelaez RN 505 [place] [address] 09/12/2025 1:30 PM EST Telemedicine [facility] MED & PEDS [address] [place] [address] Linda Pelaez RN 505 [place] [address] documented as of this encounter Procedures Procedure [...] on filedocumented in this encounter Care Teams Biofuels Product Manager Relationship Specialty Start Date End Date Chato Thomason MD [address] [place] [address] PCP - General Internal Medicine 10/27/18 Kelsey Minaya Community Health Worker 06/08/2407/07 Eliane Metzger Log TurnerPole Peeler 01/29/24 07/08/24 Mackenzie Roland Log Turner 07/09/24 Angela Pozo Log Turner 07/09/24 06/12/25 [facility] 06/12/23 Ezekiel Patricia Log TurnerPole Peeler 06/13/25 documented as of this encounter
--- OUTSIDE RECORDS SUMMARY | 2025-08-01 11:18 | XMS_ITS | Encounter Summary ---
Author Organization [employer] Address [address] [place] [address] [place] [address] Care Team Providers Care Sanitation Technician Name Role Phone Chato Thomason MD Primary Care Provider [phone] Kelsey Minaya Unavailable Reason for Visit * Reason Onset Date Comments VNA Orders 07/28/2023 Encounter Details Date Type Department Care Team ([facility] Contact Info) Description 07/28/2023 Telephone [facility] CHC MED & PEDS 505 [place], [place] [phone] Chato Thomason MD 505 [place], [place] [phone] VNA Orders Social History Tobacco Use Types [...] - 07/28/2023 3:40 PM EDT Tc from [facility] requesting two VNA orders for: Face to Face Encounter Dated on 06/11/2023 (Please fax over office notes) Physician order Dated on 06/11/2023 Norris states that orders have a 30 day time frame. Please fax over at [phone] Please If any questions please contact Anabela at [phone] documented in this encounter Plan of Treatment Upcoming Encounters Date Type Department Care Team ([facility] st Contact Info) Description 08/11/2025 10:30 AM EDT Office Visit [facility] MED & PEDS 505 [place] [address] Chato Thomason MD 505 [place] [address] 08/25/2025 2:30 PM EDT Clinical Support [facility] MED & PEDS 505 [place] [address] Linda Pelaez RN 505 [place] [address] 09/12/2025 1:30 PM EST Telemedicine [facility] MED & PEDS 505 [place] [address] Linda Pelaez RN 505 [place] [address] documented as of this encounter Visit Diagnoses Not on filedocumented in this encounter Care Teams Sanitation Technician Relationship Specialty Start Date End Date Chato Thomason MD 505 [place] [address] PCP - General Internal Medicine 10/27/18 Kelsey Minaya Community Health Worker 06/08/2407/07 Eliane Metzger Supervisor Industrial GarmentTruck Driver 01/29/24 07/08/24 Mackenzie Roland Supervisor Industrial Garment 07/09/24 Angela Pozo Supervisor Industrial Garment 07/09/24 06/12/25 [facility] 06/12/23 Ezekiel Patricia Supervisor Industrial GarmentTruck Driver 06/13/25 documented as of this encounter
--- OUTSIDE RECORDS SUMMARY | 2025-08-01 11:18 | XMS_ITS | Encounter Summary ---
Author Organization [employer] Address 75 [facility] 7 [place] [address] Care Team Providers Care R Developer Name Role Phone Chato Thomason MD Primary Care Provider [phone] Kelsey Minaya Unavailable Encounter Details Date Type Department Care Team (Late st Contact Info) Description 11/05/2023 Abstract [facility] MEDICINE [address] [place] [address] Chato Thomason MD 505 [place], [place] [phone] Social History Tobacco Use Types Packs/Day Years [...] the past 12 months, has t he [employer], gas, oil or water [employer] threatened to shut off services in your [...] Description 08/11/2025 10:30 AM EDT Office Visit [facility] MED & PEDS 505 [place] [address] Chato Thomason MD 505 [place] [address] 08/25/2025 2:30 PM EDT Clinical Support [facility] MED & PEDS 505 [place] [address] Linda Pelaez RN 505 [place] [address] 09/12/2025 1:30 PM EST Telemedicine [facility] MED & PEDS 505 [place] [address] Linda Pelaez RN [address] [place], [place] documented as of this encounter Visit Diagnoses Not on filedocumented in this encounter Care Teams R Developer Relationship Specialty Start Date End Date Chato Thomason MD 505 [place] [address] PCP - General Internal Medicine 10/27/18 Kelsey Minaya Community Health Worker 06/08/2407/07 Eliane Metzger Barrel Rib Matting Machine OperatorCementing Machine Operator 01/29/24 07/08/24 Mackenzie Roland Barrel Rib Matting Machine Operator 07/09/24 Angela Pozo Barrel Rib Matting Machine Operator 07/09/24 06/12/25 [facility] 06/12/23 Ezekiel Patricia Barrel Rib Matting Machine OperatorCementing Machine Operator 06/13/25 documented as of this encounter
--- OUTSIDE RECORDS SUMMARY | 2025-08-01 11:18 | XMS_ITS | Encounter Summary ---
Author Organization [employer] Address [address] [place] [address] [place] [address] Care Team Providers Care Outdoor Studies Director Name Role Phone Chato Thomason MD Primary Care Provider [phone] Kelsey Minaya Unavailable Reason for Referral * Consultation (Routine) - Closed Specialty Diagnoses / Procedures Referred By Maryana singh Referred To Contact Podiatry Diagnoses Nail problem Chato Thomason MD [address] [place] [address] Phone: tel: fax: Referral ID Status Reason Start Date Expiration Date V isits Requested Visits Authorized [id number] Closed Specialty Services Required 06/11/2024 06/11/2025 1 1 Encounter Details Date Type Department Care Team ([facility] st Contact Info) Description 06/11/2024 Orders Only [facility] CHC MED & PEDS [address] [place] [address] Chato Thomason MD 505 [place] [address] Nail problem (Primary Dx); Anxiety Social History [...] [facility] [address] [place] [address] Chato Thomason MD 505 [place] [address] 08/25/2025 2:30 PM EDT Clinical Support [facility] MED & [facility]EDS [address] [place] [address] Linda Pelaez RN 505 [place] [address] 09/12/2025 1:30 PM EST Telemedicine [facility] & PEDS 505 [place] [address] Linda Pelaez RN 505 [place] [address] Scheduled Referrals Name Type Priority Associated Diagnoses Orde r Schedule Referral to Podiatry Outpatient Referral Routine Nail problem Expected: 06/11/2024 (Approximate), Expires: 06/11/2025 documented as of this encounter Visit Diagnoses Diagnosis Nail problem- Primary Other specified disease of nail Anxiety Anxiety state, unspecified documented in this encounter Care Teams Outdoor Studies Director Relationship Specialty Start Date End Date Chato Thomason MD [address] [place] [address] PCP - General Internal Medicine 10/27/18 Kelsey Minaya Community Health Worker 06/08/2407/07 Eliane Metzger Chute OperatorCocoa Bean Cleaner 01/29/24 07/08/24 Mackenzie Roland Chute Operator 07/09/24 Angela Pozo Chute Operator 07/09/24 06/12/25 [facility] 06/12/23 Ezekiel Patricia Chute OperatorCocoa Bean Cleaner 06/13/25 documented as of this encounter
--- OUTSIDE RECORDS SUMMARY | 2025-08-01 11:18 | XMS_ITS | Encounter Summary ---
Author Organization [employer] Address 75 [facility] 7 [place] [address] Care Team Providers Care Waiter/Waitress Tavern Name Role Phone Chato Thomason MD Primary Care Provider [phone] Kelsey Minaya Unavailable Reason for Visit * Reason Onset Date Comments Hospital Follow-up 07/05/2024 Encounter Details Date Type Department Care Team ([facility] st Contact Info) Description 07/05/2024 Telephone [facility] MEDICINE 230 [place], [place] [phone] Chato Thomason MD 505 [place], [place] [phone] Hospital Follow-up Social History Tobacco Use Types [...] 1:52 PM EDT ----- Message from Chato Tohmason MD sent at 07/16/2024 11:46 AM EDT [...] the ED. His personal phone number is [phone]. We agreed to have him contact one of our team nurseif he has a concern about Mr Lawrence Childers and to update us at [facility] regularly on Friday on what Mr Lawrence Childers needs are. Bo does think that Mr Lawrence Childers would be better taken care of at a [place] given the level of care he needs. * Telephone Encounter - Art Pena - 07/06/2024 12:12 PM EDT Tc from cayla with [facility] would like to PCP that they called crisis due to having suicidal ideation. Advised will leave message asd FYI. Please see previous message. Please contact at [phone] * Telephone Encounter - Ronaldo Larios - 07/05/2024 8:03 AM EDT Tc from pt requesting a HDF appt. 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 a procedure done to remove the cancer and is not able to come in physically it would need to be a Tele appt documented in this encounter Plan of Treatment Upcoming Encounters Date Type Department Care Team ([facility] st Contact Info) Description 08/11/2025 10:30 AM EDT Office Visit [facility] MED & PEDS [address] [place] [address] Chato Thomason MD 505 [place] [address] 08/25/2025 2:30 PM EDT Clinical Support [facility] MED & PEDS [address] [place] [address] Linda Pelaez RN 505 [place] [address] 09/12/2025 1:30 PM EST Telemedicine [facility] MED & PEDS [address] [place] [address] Linda Pelaez, WALT 505 [place] [address] documented as of this encounter Visit Diagnoses Not on filedocumented in this encounter Care Teams Waiter/Waitress Tavern Relationship Specialty Start Date End Date Chato Thomason MD [address] [place] [address] PCP - General Internal Medicine 10/27/18 Kelsey Minaya Community Health Worker 06/08/2407/07 Eliane Metzger NpsPet Walker 01/29/24 07/08/24 Cayla Roland Nps 07/09/24 Angela Pozo Nps 07/09/24 06/12/25 [facility] 06/12/23 Ezekiel Patricia NpsPet Walker 06/13/25 documented as of this encounter
--- OUTSIDE RECORDS SUMMARY | 2025-08-01 11:18 | XMS_ITS | Encounter Summary ---
Author Organization [employer] Address [address] [facility] [address] 7t [place] [address] Care Team Providers Care Wood Miller Name Role Phone Chato Thomason MD Primary Care Provider [phone] Kelsey Minaya Unavailable Encounter Details Date Type Department Care Team ([facility] Contact Info) Description 06/24/2024 Orders Only [facility] CHC MED & PEDS [address] [place], [place] [phone] ProviderColleen MD Social History Tobacco Use Types [...] Upcoming Encounters Date Type Department Care Team ([facility] st Contact Info) Description 08/11/2025 10:30 AM EDT Office Visit [facility] MED & PEDS [address] [place] [address] Chato Thomason MD 505 [place] [address] 08/25/2025 2:30 PM EDT Clinical Support [facility] MED & PEDS [address] [place] [address] Linda Pelaez RN 505 [place] [address] 09/12/2025 1:30 PM EST Telemedicine [facility] MED & PEDS [address] [place] [address] Linda Pelaez RN 505 [place] [address] documented as of this encounter Procedures Procedure [...] on filedocumented in this encounter Care Teams Wood Miller Relationship Specialty Start Date End Date Chato Thomason MD [address] [place] [address] PCP - General Internal Medicine 10/27/18 Kelsey Minaya Community Health Worker 06/08/2407/07 Eliane Metzger Audit Machine OperatorDouble Surface Operator 01/29/24 07/08/24 Mackenzie Roland Audit Machine Operator 07/09/24 Angela Pozo Audit Machine Operator 07/09/24 06/12/25 [facility] 06/12/23 Ezekiel Patricia Audit Machine OperatorDouble Surface Operator 06/13/25 documented as of this encounter
--- OUTSIDE RECORDS SUMMARY | 2025-08-01 11:18 | XMS_ITS | Encounter Summary ---
Author Organization [employer] Address 75 [facility] 7 [place] [address] Care Team Providers Care Cold Storage Superintendent Name Role Phone Chato Thomason MD Primary Care Provider [phone] Reason for Visit * Reason Onset Date Comments Med Refill 03/14/2025 Encounter Details Date Type Department Care Team ([facility] st Contact Info) Description 03/14/2025 Telephone [facility] MEDICINE [address] [place], [place] [phone] Chato Thomason MD 505 [place], [place] [phone] Med Refill Social History Tobacco Use Types [...] sent to: [facility] [place] documented in this encounter Plan of Treatment Upcoming Encounters Date Type Department Care Team ([facility] st Contact Info) Description 08/11/2025 10:30 AM EDT Office Visit [facility] MED & PEDS 505 [place] [address] Chato Thomason MD 505 [place] [address] 08/25/2025 2:30 PM EDT Clinical Support [facility] MED & PEDS 505 [facility] [place] [address] Linda Pelaez RN 505 [place] [address] 09/12/2025 1:30 PM EST Telemedicine [facility] CHC MED & PEDS [address] [place] [address] Linda Pelaez RN [address] [place] [address] documented as of this encounter Visit Diagnoses Not on filedocumented in this encounter Additional Health Concerns Assessment Noted Time PHQ-9 Depression Total Score: 19 024 3:44 PM EDT documented as of this encounter Care Teams Cold Storage Superintendent Relationship Specialty Start Date End Date Chato Thomason MD 505 [place] [address] PCP - General Internal Medicine 10/27/18 Mackenzie Roland Supervisor Operations 07/09/24 Angela Pozo Supervisor Operations 07/09/24 06/12/25 [facility] 06/12/23 Ezekiel Patricia Supervisor OperationsTiedown Operator 06/13/25 documented as of this encounter
--- OUTSIDE RECORDS SUMMARY | 2025-08-01 11:18 | XMS_ITS | Encounter Summary ---
Author Organization [employer] Address [address] [place] [address] Care Team Providers Care Document Preparer Microfilming Name Role Phone Chato Thomason MD Primary Care Provider [phone] Kelsey Minaya Unavailable Reason for Referral * Consultation (Routine) - Closed Specialty Diagnoses / Procedures Referred By Maryana singh Referred To Contact Occupational Therapy Diagnoses Lymphedema Chato Thomason MD [address] [place] [address] Phone: tel: fax: [facility] [address] [place] [address] Phone: tel: fax: Referral ID Status Reason Start Date Expiration Date V isits Requested Visits Authorized [id number] Closed Specialty Services Required 07/16/2024 07/16/2025 1 1 Encounter Details Date Type Department Care Team (Late st Contact Info) Description 07/07/2024 Orders Only [facility] CHC MED & PEDS [address] [place], [place] [phone] Chato Thomason MD 505 [place], [place] [phone] Anxiety (Primary Dx); Lymphedema Social History Tobacco [...] Upcoming Encounters Date Type Department Care Team ([facility] st Contact Info) Description 08/11/2025 10:30 AM EDT Office Visit [facility] MED & PEDS [address] [place] [address] Chato Thomason MD 505 [place] [address] 08/25/2025 2:30 PM EDT Clinical Support [facility] MED & PEDS [address] [place] [address] Linda Pelaez RN 505 [place] [address] 09/12/2025 1:30 PM EST Telemedicine [facility] MED & PEDS [address] [place] [address] Linda Pelaez, RN 505 [place] [address] Scheduled Referrals Name Type Priority Associated Diagnoses Order Schedule Referral to Occupational Therapy Outpatient Referral Routine Lymphedema Expected: 07/16/2024 (Approximate), Expires: 07/16/2025 documented as of this encounter Visit Diagnoses Diagnosis Anxiety- Primary Anxiety state, unspecified Lymphedema Other noninfectious lymphedema documented in this encounter Care Teams Document Preparer Microfilming Relationship Specialty Start Date End Date Chato Thomason MD 505 [place] [address] PCP - General Internal Medicine 10/27/18 Kelsey Minaya Community Health Worker 06/08/2407/07 Eliane Metzger Hairspring InspectorRoof Bolter Operator 01/29/24 07/08/24 Mackenzie Roland Hairspring Inspector 07/09/24 Angela Pozo Hairspring Inspector 07/09/24 06/12/25 [facility] 06/12/23 Ezekiel Patricia Hairspring InspectorRoof Bolter Operator 06/13/25 documented as of this encounter
--- OUTSIDE RECORDS SUMMARY | 2025-08-01 11:18 | XMS_ITS | Encounter Summary ---
Author Organization [employer] Address [address] [place] [address] Care Team Providers Care Hair And Makeup Designer Name Role Phone Chato Thomason MD Primary Care Provider [phone] Reason for Referral * Consultation (Routine) - Closed Specialty Diagnoses / Procedures Referred By Contto singh Referred To Contact Dermatology Diagnoses Spongiotic dermatitis Chato Thomason MD [address] [place] [address] Phone: tel: fax: Gail Srinivasan [address] [place] [address] Phone: tel: fax: Referral ID Status Reason Start Date Expiration Date V isits Requested Visits Authorized [id number] Closed Specialty Services Required 08/25/2024 08/25/2025 1 1 Encounter Details Date Type Department Care Team ([facility] st Contact Info) Description 08/24/2024 Orders Only [facility] MED & PEDS [address] [place], [place] [phone] Chato Thomason MD [address] [place], [place] [phone] Spongiotic dermatitis (Primary Dx) Social History Tobacco [...] Description 08/11/2025 10:30 AM EDT Office Visit [facility] MED & PEDS [address] [place] [address] Chato Thomason MD [address] [place] [address] 08/25/2025 2:30 PM EDT Clinical Support [facility] MED & PEDS [address] [place] [address] Linda Pelaez RN [address] [place] [address] 09/12/2025 1:30 PM EST Telemedicine [facility] CHC MED & PEDS [address] [place] [address] Linda Pelaez RN [address] [place] [address] Scheduled Referrals Name Type Priority Associated Diagnoses [...] as of this encounter Care Teams Hair And Makeup Designer Relationship Specialty Start Date End Date Chato Thomason MD [address] [place] [address] PCP - General Internal Medicine 10/27/18 Mackenzie Roland Casting Chipper 07/09/24 Angela Pozo Casting Chipper 07/09/24 06/12/25 [facility] 06/12/23 Ezekiel Patricia Casting ChipperDesk Lieutenant 06/13/25 documented as of this encounter
--- OUTSIDE RECORDS SUMMARY | 2025-08-01 11:18 | XMS_ITS | Encounter Summary ---
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) Dysphagia, unspecified type Chato Thomason MD [address] [place] [address] Phone: tel: fax: Moe Luna MD [address] [place] [address] Phone: tel: fax: Referral ID Status Reason Start Date Expiration Date V isits Requested Visits Authorized [id number] Closed Specialty Services Required 12/20/2024 12/20/2025 1 1 Encounter Details Date Type Department Care Team (Late st Contact Info) Description 12/20/2024 Orders Only [facility] MEDICINE [address] [place] [address] Chato Thomason MD [address] [place], [place] [phone] Squamous cell carcinoma of larynx (CMS/HCC) ([facility] Description 08/11/2025 10:30 AM EDT Office Visit [facility] MED & PEDS [address] [place], [place] [phone] Chato Thomason MD [address] [place] [address] 08/25/2025 2:30 PM EDT Clinical Support [facility] MED & PEDS [address] [place] [address] Linda Pelaez RN [address] [place] [address] 09/12/2025 1:30 PM EST Telemedicine [facility] MED & PEDS [address] [place] [address] Linda Pelaez RN [address] [place] [address] Scheduled Referrals Name Type Priority Associated Diagnoses [...] as of this encounter Care Teams Certified Credit Counselor Relationship Specialty Start Date End Date Chato Thomason MD [address] [place] [address] PCP - General Internal Medicine 10/27/18 Mackenzie Roland Therapist Phys 07/09/24 Angela Pozo Therapist Phys 07/09/24 06/12/25 [facility] 06/12/23 Ezekiel Patricia Therapist PhysMusic Agent 06/13/25 documented as of this encounter
--- OUTSIDE RECORDS SUMMARY | 2025-08-01 11:18 | XMS_ITS | Encounter Summary ---
Author Organization [employer] Address [address] [facility] 7 [place] [address] Care Team Providers Care Publications Distribution Clerk Name Role Phone Chato Thomason MD Primary Care Provider [phone] Kelsey Minaya Unavailable Encounter Details Date Type Department Care Team ([facility] Contact Info) Description 08/13/2023 Orders Only [facility] CHC MED & PEDS [address] [place], [place] [phone] Chato Thomason MD [address] [place] [address] Spongiotic dermatitis (Primary Dx) Social History Tobacco [...] [facility] st Contact Info) Description 08/11/2025 10:30 AM EDT Office Visit [facility] MED & PEDS [address] [place] [address] Chato Thomason MD [address] [place] [address] 08/25/2025 2:30 PM EDT Clinical Support [facility] MED & PEDS [address] [place] [address] Linda Pelaez RN [address] [place] [address] 09/12/2025 1:30 PM EST Telemedicine [facility] MED & PEDS [address] [place] [address] Linda Pelaez RN [address] [place] [address] documented as of this encounter Visit Diagnoses Diagnosis Spongiotic dermatitis- Primary Contact dermatitis and other eczema, due to unspecified cause documented in this encounter Care Teams Publications Distribution Clerk Relationship Specialty Start Date End Date Chato Thomason MD [address] [place] [address] PCP - General Internal Medicine 10/27/18 Kelsey Minaya Community Health Worker 06/08/2407/07 Eliane Metzger Boom Truck DriverCut Off Saw Tender Metal 01/29/24 07/08/24 Mackenzie Roland Boom Truck Driver 07/09/24 Angela Pozo Boom Truck Driver 07/09/24 06/12/25 [facility] 06/12/23 Ezekiel Patricia Boom Truck DriverCut Off Saw Tender Metal 06/13/25 documented as of this encounter
--- OUTSIDE RECORDS SUMMARY | 2025-08-01 11:18 | XMS_ITS | Encounter Summary ---
Author Organization [employer] Address [address] [facility] 7 [place] [address] Care Team Providers Care Deck Mechanic Name Role Phone Chato Thomason MD Primary Care Provider [phone] Reason for Visit * Reason Onset Date Comments Med Refill 04/06/2025 Encounter Details Date Type Department Care Team ([facility] st Contact Info) Description 04/06/2025 Telephone [facility] MEDICINE [address] [place], [place] [phone] Chato Thomason MD [address] [place], [place] [phone] Med Refill Social History Tobacco Use Types [...] to: [facility] - [place], [place] - [address] [place] [address] documented in this encounter Plan of Treatment Upcoming Encounters Date Type Department Care Team ([facility] st Contact Info) Description 08/11/2025 10:30 AM EDT Office Visit [facility] MED & PEDS [address] [place] [address] Chato Thomason MD [address] [facility] [place] [address] 08/25/2025 2:30 PM EDT Clinical Support [facility] MED & PEDS [address] [place] [address] Linda Pelaez RN [address] [place] [address] 09/12/2025 1:30 PM EST Telemedicine [facility] MED & PEDS [address] [place] [address] Linda Pelaez, WALT [address] [place], [place] [phone] documented as of this encounter Visit Diagnoses Not on filedocumented in this encounter Additional Health Concerns Assessment Noted Time PHQ-9 Depression Total Score: 19 024 3:44 PM EDT documented as of this encounter Care Teams Deck Mechanic Relationship Specialty Start Date End Date Chato Thomason MD [address] [place] [address] PCP - General Internal Medicine 10/27/18 Mackenzie Roland Building Rigger 07/09/24 Angela Pozo Building Rigger 07/09/24 06/12/25 [facility] 06/12/23 Ezekiel Patricia Building RiggerVocational Rehabilitation Technician 06/13/25 documented as of this encounter
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
--- OUTSIDE RECORDS SUMMARY | 2025-08-01 11:18 | XMS_ITS | Encounter Summary ---
Author Organization [employer] Address [address] [facility] 7 [place] [address] Care Team Providers Care Retail Buyer Name Role Phone Chato Thomason MD Primary Care Provider [phone] Reason for Visit * Reason Onset Date Comments Order 03/14/2025 Encounter Details Date Type Department Care Team ([facility] st Contact Info) Description 03/14/2025 Telephone [facility] [address] [place], [place] [phone] Chato Thomason MD [address] [place] [address] Order Social History Tobacco Use Types Packs/Day [...] Tc from Stan with [facility] in regards neuropathic pain order stating it would need to be changed to lymphedema order due to the being 2 different diagnoses. Stan requested order be put Attention to Stan If any questions you can contact Stan at [phone]. documented in this encounter Plan of Treatment Upcoming Encounters Date Type Department Care Team ([facility] st Contact Info) Description 08/11/2025 10:30 AM EDT Office Visit [facility] [address] [place] [address] Chato Thomason MD [address] [place] [address] 08/25/2025 2:30 PM EDT Clinical Support [facility] [address] [place] [address] Linda Pelaez RN [address] [place] [address] 09/12/2025 1:30 PM EST Telemedicine [facility] [address] [place] [address] Linda Pelaez, WALT [address] [place] [address] documented as of this encounter Visit Diagnoses Not on filedocumented in this encounter Additional Health Concerns Assessment Noted Time PHQ-9 Depression Total Score: 19 024 3:44 PM EDT documented as of this encounter Care Teams Retail Buyer Relationship Specialty Start Date End Date Chato Thomason MD [address] [place] [address] PCP - General Internal Medicine 10/27/18 Mackenzie Roland Behavioral Health Care Manager 07/09/24 Angela Pozo Behavioral Health Care Manager 07/09/24 06/12/25 [facility] 06/12/23 Ezekiel Patricia Behavioral Health Care ManagerEmbosser Operator 06/13/25 documented as of this encounter
--- OUTSIDE RECORDS SUMMARY | 2025-08-01 11:18 | XMS_ITS | Encounter Summary ---
Author Organization [employer] Address [address] [facility] 7 [place] [address] Care Team Providers Care Compound Mixer Name Role Phone Chato Thomason MD Primary Care Provider [phone] Reason for Visit * Reason Onset Date Comments Med Refill 09/13/2024 Encounter Details Date Type Department Care Team ([facility] st Contact Info) Description 09/13/2024 Telephone [facility] [address] [place], [place] [phone] Chato Thomason MD [address] [place] [address] Med Refill Social History Tobacco Use Types [...] immediate release tablet To be sent to: [id number] [facility] documented in this encounter Plan of Treatment Upcoming Encounters Date Type Department Care Team ([facility] Contact Info) Description 08/11/2025 10:30 AM EDT Office Visit [facility] [address] [place] [address] Chato Thomason MD [address] [place] [address] 08/25/2025 2:30 PM EDT Clinical Support [facility] [address] [place] [address] Linda Pelaez RN [address] [place] [address] 09/12/2025 1:30 PM EST Telemedicine [facility] [address] [place] [address] Linda Pelaez RN [address] [place] [address] documented as of this encounter Visit Diagnoses Not on filedocumented in this encounter Additional Health Concerns Assessment Noted Time PHQ-9 Depression Total Score: 19 024 3:44 PM EDT documented as of this encounter Care Teams Compound Mixer Relationship Specialty Start Date End Date Chato Thomason MD [address] [place] [address] PCP - General Internal Medicine 10/27/18 Mackenzie Roland Real Estate Photographer 07/09/24 Angela Pozo Real Estate Photographer 07/09/24 06/12/25 [facility] 06/12/23 Ezekiel Patricia Real Estate PhotographerEngine Repairer Service 06/13/25 documented as of this encounter
--- OUTSIDE RECORDS SUMMARY | 2025-08-01 11:18 | XMS_ITS | Encounter Summary ---
Author Organization [employer] Address [address] [facility] 7 [place] [address] Care Team Providers Care Sound Effects Person Name Role Phone Chato Thomason MD Primary Care Provider [phone] Reason for Visit * Reason Onset Date Comments Referral 11/30/2024 Medication Question 11/30/2024 Encounter Details Date Type Department Care Team ([facility] st Contact Info) Description 11/30/2024 Telephone [facility] [address] [place] [address] Chato Thomason MD [address] [place], [place] [phone] Referral; Medication Question Social History Tobacco Use [...] the pt is in. Contact pt at [phone] documented in this encounter Plan of Treatment Upcoming Encounters Date Type Department Care Team (Late st Contact Info) Description 08/11/2025 10:30 AM EDT Office Visit [facility] [address] [place] [address] Chato Thomason MD [address] [place] [address] 08/25/2025 2:30 PM EDT Clinical Support [facility] [address] [place] [address] Linda Pelaez RN [address] [place] [address] 09/12/2025 1:30 PM EST Telemedicine [facility] [address] [place] [address] Linda Pelaez, WALT [address] [place], [place] [phone] documented as of this encounter Visit Diagnoses Not on filedocumented in this encounter Additional Health Concerns Assessment Noted Time PHQ-9 Depression Total Score: 19 024 3:44 PM EDT documented as of this encounter Care Teams Sound Effects Person Relationship Specialty Start Date End Date Chato Thomason MD [address] [place] [address] PCP - General Internal Medicine 10/27/18 Mackenzie Roland Bench Loom Weaver 07/09/24 Angela Pozo Bench Loom Weaver 07/09/24 06/12/25 [employer] 06/12/23 Ezekiel Patricia Bench Loom WeaverOutfitter [employer]in 06/13/25 documented as of this encounter
--- OUTSIDE RECORDS SUMMARY | 2025-08-01 11:18 | XMS_ITS | Encounter Summary ---
Author Organization [employer] Address 75 [facility] 7 [place] [address] Care Team Providers Care Senior Linux Unix Administrator Name Role Phone Chato Thomason MD Primary Care Provider [phone] Reason for Visit * Reason Onset Date Comments Med Refill 04/18/2025 Encounter Details Date Type Department Care Team ([facility] st Contact Info) Description 04/18/2025 Telephone [facility] 230 [place], [place] [phone] Chato Thomason MD 505 [place], [place] [phone] Med Refill Social History Tobacco Use Types [...] release tablet To be sent to: [facility] - Bro [address] documented in this encounter Plan of Treatment Upcoming Encounters Date Type Department Care Team ([facility] st Contact Info) Description 08/11/2025 10:30 AM EDT Office Visit [facility] MED & PEDS 505 [place] [address] Chato Thomason MD 505 [facility] [address] 08/25/2025 2:30 PM EDT Clinical Support [facility] 505 [place] [address] Linda Pelaez RN 505 [facility] [place] [address] 09/12/2025 1:30 PM EST Telemedicine [facility] & PEDS [address] [place] [address] Linda Pelaez, WALT 505 [place] [address] documented as of this encounter Visit Diagnoses Not on filedocumented in this encounter Additional Health Concerns Assessment Noted Time PHQ-9 Depression Total Score: 19 024 3:44 PM EDT documented as of this encounter Care Teams Senior Linux Unix Administrator Relationship Specialty Start Date End Date Chato Thomason MD 505 [place] [address] PCP - General Internal Medicine 10/27/18 Mackenzie Roland Neuroradiologist 07/09/24 Angela Pozo Neuroradiologist 07/09/24 06/12/25 [facility] 06/12/23 Ezekiel Patricia NeuroradiologistHead Trimmer 06/13/25 documented as of this encounter
--- OUTSIDE RECORDS SUMMARY | 2025-08-01 11:18 | XMS_ITS | Encounter Summary ---
Author Organization [employer] Address [address] [place] [address] 7 [place] [address] Care Team Providers Care Rubber Engraver Name Role Phone Chato Thomason MD Primary Care Provider [phone] Encounter Details Date Type Department Care Team ([facility] st Contact Info) Description 12/02/2024 Orders Only [facility] MED & PEDS 505 [place], [place] [phone] Chato Thomason MD 505 [place], [place] [phone] Neuropathic pain Social History Tobacco Use Types [...] [facility] 505 [place] [address] Chato Thomason MD 505 [place] [address] 08/25/2025 2:30 PM EDT Clinical Support [facility] 505 [place] [address] Linda Pelaez RN 505 [place] [address] 09/12/2025 1:30 PM EST Telemedicine [facility] 505 [place] [address] Linda Pelaez RN 505 [place] [address] documented as of this encounter Visit Diagnoses Diagnosis Neuropathic pain documented in this encounter Additional Health Concerns Assessment Noted Time PHQ-9 Depression Total Score: 19 024 3:44 PM EDT documented as of this encounter Care Teams Rubber Engraver Relationship Specialty Start Date End Date Chato Thomason MD [address] [place] [address] PCP - General Internal Medicine 10/27/18 Mackenzie Roland Traveling Freight Agent 07/09/24 Angela Pozo Traveling Freight Agent 07/09/24 06/12/25 [facility] 06/12/23 Ezekiel Patricia Traveling Freight AgentMontessori Toddler Teacher 06/13/25 documented as of this encounter
--- OUTSIDE RECORDS SUMMARY | 2025-08-01 11:18 | XMS_ITS | Encounter Summary ---
Author Organization [employer] Address 75 [facility] 7 [place] [address] Care Team Providers Care Pharmacy Technician Name Role Phone Chato Thomason MD Primary Care Provider [phone] Reason for Visit * Reason Onset Date Comments Medication Question 04/01/2025 Encounter Details Date Type Department Care Team ([facility] Contact Info) Description 04/01/2025 Telephone [facility] CH[facility] MED & PEDS 505 [place], [place] [phone] Chato Thomason MD 505 [place], [place] [phone] Medication Question Social History Tobacco Use Types [...] affecting pt mood. Contact pt mom at [phone] documented in this encounter Plan of Treatment Upcoming Encounters Date Type Department Care Team ([facility] st Contact Info) Description 08/11/2025 10:30 AM EDT Office Visit [facility] MED & PEDS 505 [place] [address] Chato Thomason MD 505 [place] [address] 08/25/2025 2:30 PM EDT Clinical Support 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) Malignant neoplasm of larynx, unspecified site Anxiety Anxiety state, unspecified documented in this encounter Additional Health Concerns Assessment Noted Time PHQ-9 Depression Total Score: 19 024 3:44 PM EDT documented as of this encounter Care Teams Pharmacy Technician Relationship Specialty Start Date End Date Chato Thomason MD 505 [place] [address] PCP - General Internal Medicine 10/27/18 Mackenzie Roland Director Sterile Processing 07/09/24 Angela Pozo Director Sterile Processing 07/09/24 06/12/25 [facility] 06/12/23 Ezekiel Patricia Director Sterile ProcessingProsecuting Attorney 06/13/25 documented as of this encounter
--- OUTSIDE RECORDS SUMMARY | 2025-08-01 11:18 | XMS_ITS | Encounter Summary ---
Author Organization [employer] Address [address] [place] [address] 7 [place] [address] Care Team Providers Care Well Puller Head Name Role Phone Chato Thomason MD Primary Care Provider [phone] Reason for Visit * Reason Comments Med Refill Encounter Details Date Type Department Care Team ([facility] st Contact Info) Description 11/30/2024 Refill [facility] MED & PEDS 505 [place], [place] [phone] Chato Thomason MD 505 [place], [place] [phone] Other insomnia; Anxiety; Anxiety; Squamous cell carcinoma [...] 10:30 AM EDT Office Visit [facility] MED & PEDS 505 [place] [address] Chato Thomason MD 505 [place] [address] 08/25/2025 2:30 PM EDT Clinical Support [facility] MED & PEDS 505 [place] [address] Linda Pelaez RN 505 [place] [address] 09/12/2025 1:30 PM EST Telemedicine [facility] MED & PEDS 505 [place] [address] Linda Pelaez RN 505 [place] [address] documented as of this encounter Visit Diagnoses Diagnosis Other insomnia Anxiety Anxiety state, unspecified 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
--- OUTSIDE RECORDS SUMMARY | 2025-08-01 11:18 | XMS_ITS | Encounter Summary ---
Author Organization [employer] Address 75 [facility] 7 [place] [address] Care Team Providers Care Bridge Manager Name Role Phone Chato Thomason MD Primary Care Provider [phone] Reason for Visit * Reason Onset Date Comments Med Refill 02/24/2025 Encounter Details Date Type Department Care Team ([facility] st Contact Info) Description 02/24/2025 Telephone [facility] MEDICINE 230 [place], [place] [phone] Chato Thomason MD 505 [place], [place] [phone] Med Refill Social History Tobacco Use Types [...] immediate release tablet To be sent to: [facility] documented in this encounter Plan of Treatment Upcoming Encounters Date Type Department Care Team ([facility] st Contact Info) Description 08/11/2025 10:30 AM EDT Office Visit [facility] MED & PEDS 505 [place] [address] Chato Thomason MD 505 [place] [address] 08/25/2025 2:30 PM EDT Clinical Support [facility] MED & PEDS 505 [place] [address] Linda Pelaez RN 505 [place] [address] 09/12/2025 1:30 PM EST Telemedicine [facility] CH[facility] MED & PEDS [address] [place] [address] Linda Pelaez, WALT [address] [place] [address] documented as of this encounter Visit Diagnoses Not on filedocumented in this encounter Additional Health Concerns Assessment Noted Time PHQ-9 Depression Total Score: 19 024 3:44 PM EDT documented as of this encounter Care Teams Bridge Manager Relationship Specialty Start Date End Date Chato Thomason MD 505 [place] [address] PCP - General Internal Medicine 10/27/18 Mackenzie Roland Glassware Maker 07/09/24 Angela Pozo Glassware Maker 07/09/24 06/12/25 [facility] 06/12/23 Ezekiel Patricia Glassware MakerFounder & Ceo 06/13/25 documented as of this encounter
--- OUTSIDE RECORDS SUMMARY | 2025-08-01 11:18 | XMS_ITS | Encounter Summary ---
Author Organization [employer] Address [address] [place] [address] 7 [place] [address] Care Team Providers Care Onion Topper Name Role Phone Chato Thomason MD Primary Care Provider [phone] Encounter Details Date Type Department Care Team ([facility] st Contact Info) Description 03/24/2025 Orders Only [facility] MED & PEDS 505 [place], [place] [phone] Chato Thomason MD 505 [place], [place] [phone] Neuropathic pain Social History Tobacco Use Types [...] [facility] Contact Info) Description 08/11/2025 10:30 AM EDT Office Visit [facility] MED & PEDS 505 [place] [address] Chato Thomason MD 505 [place] [address] 08/25/2025 2:30 PM EDT Clinical Support [facility] MED & PEDS 505 [place] [address] Linda Pelaez RN 505 [place] [address] 09/12/2025 1:30 PM EST Telemedicine [facility] MED & PEDS 505 [place] [address] Linda Pelaez RN 505 [place] [address] documented as of this encounter Visit Diagnoses Diagnosis Neuropathic pain documented in this encounter Additional Health Concerns Assessment Noted Time PHQ-9 Depression Total Score: 19 024 3:44 PM EDT documented as of this encounter Care Teams Onion Topper Relationship Specialty Start Date End Date Chato Thomason MD [address] [place] [address] PCP - General Internal Medicine 10/27/18 Mackenzie Roland Vitreo Retinal Surgeon 07/09/24 Angela Pozo Vitreo Retinal Surgeon 07/09/24 06/12/25 [facility] 06/12/23 Ezekiel Patricia Vitreo Retinal SurgeonRed Mud Thickener Operator 06/13/25 documented as of this encounter
--- OUTSIDE RECORDS SUMMARY | 2025-08-01 11:18 | XMS_ITS | Encounter Summary ---
Author Organization [employer] Address 75 [facility] 7 [place] [address] Care Team Providers Care Primary Therapist Name Role Phone Chato Thomason MD Primary Care Provider [phone] Reason for Visit * Reason Onset Date Comments Med Refill 04/04/2025 Encounter Details Date Type Department Care Team ([facility] st Contact Info) Description 04/04/2025 Telephone [facility]INE 230 [place], [place] [phone] Chato Thomason MD 505 [place], [place] [phone] Med Refill Social History Tobacco Use Types [...] immediate release tablet To be sent to: [facility] documented in this encounter Plan of Treatment Upcoming Encounters Date Type Department Care Team ([facility] st Contact Info) Description 08/11/2025 10:30 AM EDT Office Visit [facility] MED & PEDS 505 [place] [address] Chato Thomason MD 505 [place] [address] 08/25/2025 2:30 PM EDT Clinical Support [facility] MED & PEDS 505 [place] [address] Linda Pelaez RN 505 [place] [address] 09/12/2025 1:30 PM EST Telemedicine [facility] MED & PEDS [address] [place] [address] Linda Pelaez, WALT [address] [place] [address] documented as of this encounter Visit Diagnoses Not on filedocumented in this encounter Additional Health Concerns Assessment Noted Time PHQ-9 Depression Total Score: 19 024 3:44 PM EDT documented as of this encounter Care Teams Primary Therapist Relationship Specialty Start Date End Date Chato Thomason MD 505 [place] [address] PCP - General Internal Medicine 10/27/18 Mackenzie Roland Maintenance Service Dispatcher 07/09/24 Angela Pozo Maintenance Service Dispatcher 07/09/24 06/12/25 [facility] 06/12/23 Ezekiel Patricia Maintenance Service DispatcherMud Trucker 06/13/25 documented as of this encounter
--- OUTSIDE RECORDS SUMMARY | 2025-08-01 11:18 | XMS_ITS | Encounter Summary ---
Author Organization [employer] Address [address] [place] [address] 7 [place] [address] Care Team Providers Care Production Broacher Name Role Phone Chato Thomason MD Primary Care Provider [phone] Kelsey Minaya Unavailable Encounter Details Date Type Department Care Team (Late Contact Info) Description 07/03/2023 Orders Only [facility] MED & PEDS 505 [place] [address] Lucia Elmore LPN Social History Tobacco Use [...] [facility] 505 [place] [address] Chato Thomason MD 505 [place] [address] 08/25/2025 2:30 PM EDT Clinical Support [facility] MED & PEDS 505 [place] [address] Linda Pelaez, RN 505 [place] [address] 09/12/2025 1:30 PM EST Telemedicine [facility] CHC MED & PEDS 505 [place] [address] Linda Pelaez, WALT 505 [place] [address] documented as of this encounter Visit Diagnoses Not on filedocumented in this encounter Care Teams Production Broacher Relationship Specialty Start Date End Date Chato Thomason MD 505 [place] [address] PCP - General Internal Medicine 10/27/18 Kelsey Minaya Community Health Worker 06/08/2407/07 Eliane Metzger Retail Pharmacy ManagerPhotograph Finisher 01/29/24 07/08/24 Mackenzie Roland Retail Pharmacy Manager 07/09/24 Angela Pozo Retail Pharmacy Manager 07/09/24 06/12/25 [facility] 06/12/23 Ezekiel Patricia Retail Pharmacy ManagerPhotograph Finisher 06/13/25 documented as of this encounter
--- OUTSIDE RECORDS SUMMARY | 2025-08-01 11:18 | XMS_ITS | Encounter Summary ---
Author Organization [employer] Address 75 [facility] 7 [place] [address] Care Team Providers Care Front Attendant Name Role Phone Chato Thomason MD Primary Care Provider [phone] Reason for Visit * Reason Onset Date Comments PT1 12/28/2024 Encounter Details Date Type Department Care Team ([facility] st Contact Info) Description 12/28/2024 Telephone [facility] [place] MEDICINE 230 [place], [place] [phone] Chato Thomason MD 505 [place], [place] [phone] PT1 Social History Tobacco Use Types Packs/Day [...] Y/N: Yes Provider name or facility name: [address] [place] [address] [place] [address] - Pain Management Escort needed: Y/N: Yes Do you have a wheelchair: Y/N: No If yes- Manual or electric: N/A Visits: (2x monthly) documented in this encounter Plan of Treatment Upcoming Encounters Date Type Department Care Team (Late st Contact Info) Description 08/11/2025 10:30 AM EDT Office Visit [facility] MED & PEDS 505 [place] [address] Chato Thomason MD 505 [place] [address] 08/25/2025 2:30 PM EDT Clinical Support [facility] MED & PEDS 505 [place] [address] Linda Pelaez RN 505 [place] [address] 09/12/2025 1:30 PM EST Telemedicine [facility] MED & PEDS 505 [place] [address] Linda Pelaez RN 505 [place] [address] documented as of this encounter Visit Diagnoses Not on filedocumented in this encounter Additional Health Concerns Assessment Noted Time PHQ-9 Depression Total Score: 19 024 3:44 PM EDT documented as of this encounter Care Teams Front Attendant Relationship Specialty Start Date End Date Chato Thomason MD 505 [place] [address] PCP - General Internal Medicine 10/27/18 Mackenzie Roland Inspector Insulation 07/09/24 Angela Pozo Inspector Insulation 07/09/24 06/12/25 [facility] 06/12/23 Ezekiel Patricia Inspector InsulationCarbon Rod Inserter 06/13/25 documented as of this encounter
--- OUTSIDE RECORDS SUMMARY | 2025-08-01 11:18 | XMS_ITS | Encounter Summary ---
Author Organization [employer] Address 75 [facility] 7 [place] [address] Care Team Providers Care Assistant Track Coach Name Role Phone Chato Thomason MD Primary Care Provider [phone] Reason for Visit * Reason Onset Date Comments Med Refill 11/30/2024 Encounter Details Date Type Department Care Team ([facility] st Contact Info) Description 11/30/2024 Telephone [facility] MEDICINE 230 [place], [place] [phone] Chato Thomason MD 505 [place], [place] [phone] Med Refill Social History Tobacco Use Types [...] 50 MG tablet To be sent to: [facility] - [place], [place] - [address] [place] [address] documented in this encounter Plan of Treatment Upcoming Encounters Date Type Department Care Team ([facility] st Contact Info) Description 08/11/2025 10:30 AM EDT Office Visit [facility] MED & PEDS [address] [place] [address] Chato Thomason MD 505 [place] [address] 08/25/2025 2:30 PM EDT Clinical Support [facility] MED & PEDS [address] [place] [address] Linda Pelaez RN 505 [place] [address] 09/12/2025 1:30 PM EST Telemedicine [facility] CHC MED & PEDS [address] [place] [address] Linda Pelaez RN 505 [place] [address] documented as of this encounter Visit Diagnoses Not on filedocumented in this encounter Additional Health Concerns Assessment Noted Time PHQ-9 Depression Total Score: 19 024 3:44 PM EDT documented as of this encounter Care Teams Assistant Track Coach Relationship Specialty Start Date End Date Chato Thomason MD 505 [place] [address] PCP - General Internal Medicine 10/27/18 Mackenzie Roland Senior Consulting Manager 07/09/24 Angela Pozo Senior Consulting Manager 07/09/24 06/12/25 [facility] 06/12/23 Ezekiel Patricia Senior Consulting ManagerCarboy Filler 06/13/25 documented as of this encounter
--- OUTSIDE RECORDS SUMMARY | 2025-08-01 11:19 | XMS_ITS | Encounter Summary ---
Author Organization [employer] Address [address] [place] [address] 7t [place] [address] Care Team Providers Care Manager Building Name Role Phone Chato Thomason MD Primary Care Provider [phone] Encounter Details Date Type Department Care Team (Late st Contact Info) Description 06/03/2025 Orders Only [facility] 230 [place], [place] [phone] Provider, MD Colleen Social History Tobacco Use [...] Encounters Date Type Department Care Team ([facility] st Contact Info) Description 08/11/2025 10:30 AM EDT Office Visit [facility] MED & PEDS 505 [place] [address] Chato Thomason MD 505 [place] [address] 08/25/2025 2:30 PM EDT Clinical Support [facility] MED & PEDS 505 [place] [address] Linda Pelaez RN 505 [place] [address] 09/12/2025 1:30 PM EST Telemedicine [facility] MED & PEDS 505 [place] [address] Linda Pelaez RN 505 [place] [address] documented as of this encounter Procedures Procedure Name Priority Date/Time Associated Diagnosis Comments FL GUIDANCE IN OR Routine 07/01/2025 7:4 6 AM EDT FL MODIFIED BARIUM SWALLOW Routine 06/02/2025 11:09 AM EDT documented in this encounter Results * FL Guidance in OR (07/01/2025 7:46 AM EDT) Anatomical Region Laterality Modality X-Ray Angiograph y 07/01/2025 7:46 AM EDT Narrative 07/01/2025 9:55 AM EDT [address] [address] Fluoroscopy Report Signed Patient: Lawrence Childers MR#: [id number] 49 : 1965 Acct:[id number] Age/Sex: 60 / M ADM Date: 07/01/25 Loc: HO.SSS Attending Dr: Moe Luna MD Ordering Physician: Moe Luna MD Date of Service: 07/01/25 Procedure(s): FL guidance in OR Accession Number(s): [id number] cc: Chato Thomason MD; Moe Luna MD [...] MD in OV> 07/01/2552 DD/ 0746 TD/TT: 07/01/25919 Wringer Machine Operator: Procedure Note Donotuseinterpreter, Image - 07/01/[address] [address] Fluoroscopy Report Signed Patient: Lawrence Childers MMR#: [id number] 50 : 1965Acct:[id number] Age/Sex: 60 / MADM Date: 07/01/25 Loc: HO.SSS Attending Dr: Moe Luna MD Ordering Physician: Moe Luna MD Date of Service: 07/01/25 Procedure(s): FL guidance in OR Accession Number(s): [id number] cc: Chato Thomason MD; Moe Luna MD [...] Nathan Ho MD 07/01/2025 09:52 AM EDT RP Dictated By: Nathan Ho MD Signed By: <Electronically signed by Nathan Ho MD in OV> 07/01/2552 DD/ 5 TD/TT: 07/01/25919 Wringer Machine Operator: [facility] External Provider IMG IR PROCEDURES Final Result * FL MODIFIED BARIUM SWALLOW (06/02/2025 11:09 AM EDT) Anatomical Region Laterality Modality Radiographic Saundra ging Historical Provider MD JEAN FLUOROSCOPY PROCEDURE S Final Result documented in this encounter Visit Diagnoses Not on filedocumented in this encounter Additional Health Concerns Assessment Noted Time PHQ-9 Depression Total Score: 19 024 3:44 PM EDT documented as of this encounter Care Teams Manager Building Relationship Specialty Start Date End Date Chato Thomason MD [address] [place] [address] PCP - General Internal Medicine 10/27/18 Mackenzie Roland Planning Coordinator 07/09/24 Angela Pozo Planning Coordinator 07/09/24 06/12/25 [facility] 06/12/23 Ezekiel Patricia Planning CoordinatorClerk Of Court 06/13/25 documented as of this encounter
--- OUTSIDE RECORDS SUMMARY | 2025-08-01 11:19 | XMS_ITS | Encounter Summary ---
Author Organization [employer] Address 75 [facility] 7 [place] [address] Care Team Providers Care Pharmacy Sales Representative Name Role Phone Chato Thomason MD Primary Care Provider [phone] Reason for Visit * Reason Onset Date Comments Med Refill 02/15/2025 Encounter Details Date Type Department Care Team ([facility] st Contact Info) Description 02/15/2025 Telephone [facility] MEDICINE [address] [place], [place] [phone] Chato Thomason MD 505 [place], [place] [phone] Med Refill Social History Tobacco Use Types [...] 7.5 MG tablet To be sent to: [facility] documented in this encounter Plan of Treatment Upcoming Encounters Date Type Department Care Team ([facility] Contact Info) Description 08/11/2025 10:30 AM EDT Office Visit [facility] MED & PEDS 505 [place] [address] Chato Thomason MD 505 [place] [address] 08/25/2025 2:30 PM EDT Clinical Support [facility] MED & PEDS 505 [place] [address] Linda Pelaez RN 505 [place] [address] 09/12/2025 1:30 PM EST Telemedicine [facility] MED & PEDS [address] [place] [address] Linda Pelaez, RN 505 [place], [place] [phone] documented as of this encounter Visit Diagnoses Not on filedocumented in this encounter Additional Health Concerns Assessment Noted Time PHQ-9 Depression Total Score: 19 024 3:44 PM EDT documented as of this encounter Care Teams Pharmacy Sales Representative Relationship Specialty Start Date End Date Chato Thomason MD 505 [place] [address] PCP - General Internal Medicine 10/27/18 Mackenzie Roland Special Effects Makeup Artist 07/09/24 Angela Pozo Special Effects Makeup Artist 07/09/24 06/12/25 [facility] 06/12/23 Ezekiel Patricia Special Effects Makeup ArtistRegistered Nurse Maternal Child 06/13/25 documented as of this encounter
--- OUTSIDE RECORDS SUMMARY | 2025-08-01 11:19 | XMS_ITS | Encounter Summary ---
Author Organization [employer] Address 75 [facility] 7 [place] [address] Care Team Providers Care It Systems Manager Name Role Phone Chato Thomason MD Primary Care Provider [phone] Reason for Visit * Reason Onset Date Comments order needed 07/14/2025 Encounter Details Date Type Department Care Team ([facility] st Contact Info) Description 07/14/2025 Telephone [facility] MEDICINE 230 [place], [place] [phone] Chato Thomason MD 505 [place] [address] order needed Social History Tobacco Use Types [...] discuss prior message Contact pt mom at [phone] * Telephone Encounter - Jeffrey Devine - 07/14/2025 4:04 PM EDT TC from linda MATTHEWS calling requesting Order for [place] to insert Gtube . ORDER must be addressed to Margaret weber. documented in this encounter Plan of Treatment Upcoming Encounters Date Type Department Care Team (Late st Contact Info) Description 08/11/2025 10:30 AM EDT Office Visit [facility] MED & PEDS 505 [place] [address] Chato Thomason MD 505 [place] [address] 08/25/2025 2:30 PM EDT Clinical Support [facility] MED & PEDS 505 [place] [address] Linda Pelaez RN 505 [place] [address] 09/12/2025 1:30 PM EST Telemedicine [facility] MED & PEDS 505 [place] [address] Linda Pelaez RN 505 [place] [address] documented as of this encounter Visit Diagnoses Not on filedocumented in this encounter Additional Health Concerns Assessment Noted Time PHQ-9 Depression Total Score: 19 024 3:44 PM EDT documented as of this encounter Care Teams It Systems Manager Relationship Specialty Start Date End Date Chato Thomason MD 505 [place] [address] PCP - General Internal Medicine 10/27/18 Mackenzie Roland Mail Handlers Supervisor 07/09/24 [facility] 06/12/23 Ezekiel Patricia Mail Handlers SupervisorBlindstitch Lining Feller 06/13/25 documented as of this encounter
--- OUTSIDE RECORDS SUMMARY | 2025-08-01 11:19 | XMS_ITS | Encounter Summary ---
Author Organization [employer] Address 75 [facility] 7 [place] [address] Care Team Providers Care Dermatology Technician Name Role Phone Chato Thomason MD Primary Care Provider [phone] Reason for Visit * Reason Onset Date Comments pt1 07/19/2025 Encounter Details Date Type Department Care Team ([facility] Contact Info) Description 07/19/2025 Telephone [facility] MED & PEDS 505 [place], [place] [phone] Chato Thomason MD 505 [place], [place] [phone] pt1 Social History Tobacco Use Types Packs/Day [...] encounter Miscellaneous Notes * Telephone Encounter - Linda Pelaez RN - 07/27/2025 12:57 PM EDT TC back to Angelica pt's mother. TALLOW MAKER appointment r/s to 08/24/25 @ 2:30pm. * Telephone Encounter - Barney Macdonald - 07/19/2025 8:07 AM EDT Patient calling requesting PT1 Home Address verified: Y/N: Yes Provider name or facility name: 505 [facility] Escort needed: Y/N: Yes Do you have a wheelchair: Y/N: No If yes- Manual or electric: Visits: 3x a month documented in this encounter Plan of Treatment Upcoming Encounters Date Type Department Care Team ([facility] st Contact Info) Description 08/11/2025 10:30 AM EDT Office Visit [facility] MED & PEDS [address] [place] [address] Chato Thomason MD 505 [place] [address] 08/25/2025 2:30 PM EDT Clinical Support [facility] MED & PEDS 505 [place] [address] Linda Pelaez RN 505 [place] [address] 09/12/2025 1:30 PM EST Telemedicine [facility] MED & PEDS 505 [place] [address] Linda Pelaez RN 505 [place] [address] documented as of this encounter Visit Diagnoses Not on filedocumented in this encounter Additional Health Concerns Assessment Noted Time PHQ-9 Depression Total Score: 19 024 3:44 PM EDT documented as of this encounter Care Teams Dermatology Technician Relationship Specialty Start Date End Date Chato Thomason MD 505 [place] [address] PCP - General Internal Medicine 10/27/18 Mackenzie Roland Battery Assembler Dry Cell 07/09/24 [facility] 06/12/23 Ezekiel Patricia Battery Assembler Dry CellInvestigations Director 06/13/25 documented as of this encounter
--- OUTSIDE RECORDS SUMMARY | 2025-08-01 11:19 | XMS_ITS | Encounter Summary ---
Author Organization [employer] Address 75 [facility] 7 [place] [address] Care Team Providers Care Wireline Field Operator Name Role Phone Chato Thomason MD Primary Care Provider [phone] Reason for Visit * Reason Onset Date Comments PT1 02/15/2025 Encounter Details Date Type Department Care Team ([facility] st Contact Info) Description 02/15/2025 Telephone [facility] MEDICINE 230 [place], [place] [phone] Chato Thomason MD 505 [place], [place] [phone] PT1 Social History Tobacco Use Types Packs/Day [...] Y/N: Yes Provider name or facility name: [address] [place] [id number] - [facility] Escort needed: Y/N: Yes Do you have a wheelchair: Y/N: No If yes- Manual or electric: N/A Visits: (2x weekly) documented in this encounter Plan of Treatment Upcoming Encounters Date Type Department Care Team ([facility] st Contact Info) Description 08/11/2025 10:30 AM EDT Office Visit [facility] MED & PEDS 505 [place] [address] Chato Thomason MD 505 [place], [place] [phone] 08/25/2025 2:30 PM EDT Clinical Support [facility] MED & PEDS 505 [place] [address] Linda Pelaez RN 505 [place] [address] 09/12/2025 1:30 PM EST Telemedicine [facility] MED & PEDS 505 [place] [address] Linda Pelaez RN 505 [place] [address] documented as of this encounter Visit Diagnoses Not on filedocumented in this encounter Additional Health Concerns Assessment Noted Time PHQ-9 Depression Total Score: 19 024 3:44 PM EDT documented as of this encounter Care Teams Wireline Field Operator Relationship Specialty Start Date End Date Chato Thomason MD 505 [place] [address] PCP - General Internal Medicine 10/27/18 Mackenzie Roland Manager Advanced 07/09/24 Angela Pozo Manager Advanced 07/09/24 06/12/25 [facility] 06/12/23 Ezekiel Patricia Manager AdvancedFitter Armament 06/13/25 documented as of this encounter
--- OUTSIDE RECORDS SUMMARY | 2025-08-01 11:19 | XMS_ITS | Encounter Summary ---
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 [...] [facility] MED & PEDS 505 [place] [address] Chato Thomason MD 505 [place] [address] 08/25/2025 2:30 PM EDT Clinical Support [facility] MED & PEDS 505 [place] [address] Linda Pelaez RN 505 [place] [address] 09/12/2025 1:30 PM EST Telemedicine [facility] MED & PEDS 505 [place] [address] Linda Pelaez RN 505 [place] [address] documented as of this encounter Visit Diagnoses Diagnosis 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
--- OUTSIDE RECORDS SUMMARY | 2025-08-01 11:19 | XMS_ITS | Encounter Summary ---
Author Organization [employer] Address [address] [place] [address] 7 [place] [address] Care Team Providers Care Lime Plant Operator Name Role Phone Chato Thomason MD Primary Care Provider [phone] Encounter Details Date Type Department Care Team ([facility] st Contact Info) Description 07/08/2025 Orders Only [facility] CHC MED & PEDS [address] [place], [place] [phone] Chato Thomason MD 505 [place], [place] [phone] Neuropathic pain; Anxiety Social History Tobacco Use [...] Upcoming Encounters Date Type Department Care Team ([facility] st Contact Info) Description 08/11/2025 10:30 AM EDT Office Visit [facility] MED & PEDS [address] [place] [address] Chato Thomason MD 505 [place] [address] 08/25/2025 2:30 PM EDT Clinical Support [facility] MED & PEDS [address] [place] [address] Linda Pelaez RN 505 [place] [address] 09/12/2025 1:30 PM EST Telemedicine [facility] MED & PEDS [address] [place] [address] Linda Pelaez RN 505 [place] [address] documented as of this encounter Visit Diagnoses Diagnosis Neuropathic pain Anxiety Anxiety state, unspecified documented in this encounter Additional Health Concerns Assessment Noted Time PHQ-9 Depression Total Score: 19 024 3:44 PM EDT documented as of this encounter Care Teams Lime Plant Operator Relationship Specialty Start Date End Date Chato Thomason MD [address] [place] [address] PCP - General Internal Medicine 10/27/18 Mackenzie Roland Assistant Prosecuting Attorney 07/09/24 [facility] 06/12/23 Ezekiel Patricia Assistant Prosecuting AttorneyHand Chain Maker 06/13/25 documented as of this encounter
--- OUTSIDE RECORDS SUMMARY | 2025-08-01 11:19 | XMS_ITS | Encounter Summary ---
Author Organization [employer] Address [address] [place] [address] Care Team Providers Care Pipeline Welder Name Role Phone Chato Thomason MD Primary Care Provider [phone] Reason for Referral * Consultation (Routine) - Closed Specialty Diagnoses / Procedures Referred By Maryana singh Referred To Contact Occupational Therapy Diagnoses Neuropathic pain Physical deconditioning Chato Thomason MD 505 [place] [address] Phone: tel: fax: [facility] [address] Phone: tel: fax: Referral ID Status Reason Start Date Expiration Date V isits Requested Visits Authorized [id number] Closed Specialty Services Required 03/03/2025 03/03/2026 1 1 * Consultation (Routine) - Closed Specialty Diagnoses / Procedures Referred By Maryana singh Referred To Contact Physical Therapy Diagnoses Neuropathic pain Physical deconditioning Chato Thomason MD 505 [place] [address] Phone: tel: fax: [facility] [address] Phone: tel: fax: Referral ID Status Reason Start Date Expiration Date V isits Requested Visits Authorized [id number] Closed Specialty Services Required 02/21/2025 02/21/2026 20 20 Encounter Details Date Type Department Care Team (Late st Contact Info) Description 02/17/2025 Orders Only [facility] CHC MED & PEDS [address] [place] [address] Chato Thomason MD 505 [place] [address] Neuropathic pain (Primary Dx); Physical deconditioning Social [...] [facility] MED & PEDS 505 [place] [address] Chato Thomason MD 505 [place] [address] 08/25/2025 2:30 PM EDT Clinical Support [facility] MED & PEDS 505 [place] [address] Linda Pelaez RN 505 [place] [address] 09/12/2025 1:30 PM EST Telemedicine [facility] MED & PEDS 505 [place] [address] Linda Pelaez RN 505 [place] [address] Scheduled Referrals Name Type Priority Associated Diagnoses [...] documented as of this encounter Care Teams Pipeline Welder Relationship Specialty Start Date End Date Chato Thomason MD [address] [place] [address] PCP - General Internal Medicine 10/27/18 Mackenzie Roland Vice Squad Police Officer 07/09/24 Angela Pozo Vice Squad Police Officer 07/09/24 06/12/25 [facility] 06/12/23 Ezekiel Patricia Vice Squad Police OfficerSlaughterer Religious Ritual 06/13/25 documented as of this encounter
--- OUTSIDE RECORDS SUMMARY | 2025-08-01 11:19 | XMS_ITS | Encounter Summary ---
Author Organization [employer] Address 75 [facility] 7 [place] [address] Care Team Providers Care Community Development Manager Name Role Phone Chato Thomason MD Primary Care Provider [phone] Reason for Visit * Reason Onset Date Comments Call Back Request 05/30/2025 Encounter Details Date Type Department Care Team ([facility] st Contact Info) Description 05/30/2025 Telephone [facility] MEDICINE [address] [place], [place] [phone] Chato Thomason MD 505 [place], [place] [phone] Call Back Request Social History Tobacco Use [...] discuss prior message. Contact pt mom at [phone] * Telephone Encounter - Familia Preston - 05/30/2025 8:38 AM EDT Tc from mom requesting call back stating they received a letter regarding home health aide but mom and pt are unsure on what agency will be providing services. They're also requesting guidance on howthe initial process would work. Please contact mom at [phone]. documented in this encounter Plan of Treatment Upcoming Encounters Date Type Department Care Team ([facility] st Contact Info) Description 08/11/2025 10:30 AM EDT Office Visit [facility] MED & PEDS [address] [place] [address] Chato Thomason MD 505 [place] [address] 08/25/2025 2:30 PM EDT Clinical Support [facility] MED & PEDS [address] [place] [address] Linda Pelaez RN 505 [place] [address] 09/12/2025 1:30 PM EST Telemedicine [facility] MED & PEDS [address] [place] [address] Linda Pelaez RN 505 [place] [address] documented as of this encounter Visit Diagnoses Not on filedocumented in this encounter Additional Health Concerns Assessment Noted Time PHQ-9 Depression Total Score: 19 024 3:44 PM EDT documented as of this encounter Care Teams Community Development Manager Relationship Specialty Start Date End Date Chato Thomason MD 505 [place] [address] PCP - General Internal Medicine 10/27/18 Mackenzie Roland Billing Department Supervisor 07/09/24 Angela Pozo Billing Department Supervisor 07/09/24 06/12/25 [facility] 06/12/23 Ezekiel Patricia Billing Department SupervisorFamily Practice Doctor 06/13/25 documented as of this encounter
--- OUTSIDE RECORDS SUMMARY | 2025-08-01 11:19 | XMS_ITS | Encounter Summary ---
Author Organization [employer] Address 75 [facility] 7 [place] [address] Care Team Providers Care Case Specialist Name Role Phone Chato Thomason MD Primary Care Provider [phone] Reason for Visit * Reason Onset Date Comments pt1 01/26/2025 Encounter Details Date Type Department Care Team ([facility] st Contact Info) Description 01/26/2025 Telephone [facility] MEDICINE 230 [place], [place] [phone] Chato Thomason MD 505 [place], [place] [phone] pt1 Social History Tobacco Use Types Packs/Day [...] Y/N: Yes Provider name or facility name: [address] [place] [address] Escort needed: Y/N: Yes Do you have a wheelchair: Y/N: No If yes- Manual or electric: n/a Visits: (2x monthly) documented in this encounter Plan of Treatment Upcoming Encounters Date Type Department Care Team ([facility] st Contact Info) Description 08/11/2025 10:30 AM EDT Office Visit [facility] MED & PEDS [address] [place] [address] Chato Thomason MD 505 [place] [address] 08/25/2025 2:30 PM EDT Clinical Support [facility] MED & PEDS 505 [place] [address] Linda Pelaez RN 505 [place] [address] 09/12/2025 1:30 PM EST Telemedicine [facility] MED & PEDS [address] [place] [address] Linda Pelaez RN 505 [place] [address] documented as of this encounter Visit Diagnoses Not on filedocumented in this encounter Additional Health Concerns Assessment Noted Time PHQ-9 Depression Total Score: 19 024 3:44 PM EDT documented as of this encounter Care Teams Case Specialist Relationship Specialty Start Date End Date Chato Thomason MD 505 [place] [address] PCP - General Internal Medicine 10/27/18 Mackenzie Roland Correction Warden 07/09/24 Angela Pozo Correction Warden 07/09/24 06/12/25 [facility] 06/12/23 Ezekiel Patricia Correction WardenSlate Cutter Operator 06/13/25 documented as of this encounter
--- OUTSIDE RECORDS SUMMARY | 2025-08-01 11:19 | XMS_ITS | Encounter Summary ---
Author Organization [employer] Address 75 [facility] 7t [place] [address] Care Team Providers Care Barber Or Beauty Shop Manager Name Role Phone Chato Thomason MD Primary Care Provider [phone] Kelsey Minaya Unavailable Encounter Details Date Type Department Care Team ([facility] st Contact Info) Description 03/30/2024 Orders Only [facility] CHC MED & PEDS [address] [place], [place] [phone] ProviderColleen MD Social History Tobacco Use Types [...] Description 08/11/2025 10:30 AM EDT Office Visit [facility] MED & PEDS 505 [place] [address] Chato Thomason MD 505 [place] [address] 08/25/2025 2:30 PM EDT Clinical Support [facility] MED & PEDS 505 [place] [address] Linda Pelaez RN 505 [place] [address] 09/12/2025 1:30 PM EST Telemedicine [facility] MED & PEDS 505 [place] [address] Linda Pelaez RN 505 [place] [address] documented as of this encounter Procedures Procedure Name Priority Date/Time Associated Diagnosis Comments SURGICAL PATHOLOGY Routine 03/25/2024 8:43 AM EDT documented in this encounter Results * Surgical Pathology (03/25/2024 8:43 AM EDT) us Historical Provider LAB PATHOLOGY ORDERABLES Final Result documented in this encounter Visit Diagnoses Not on filedocumented in this encounter Care Teams Barber Or Beauty Shop Manager Relationship Specialty Start Date End Date Chato Thomason MD 505 [place] [address] PCP - General Internal Medicine 10/27/18 Kelsey Minaya Community Health Worker 06/08/2407/07 Eliane Metzger Filenet AdminAudio Installer 01/29/24 07/08/24 Mackenzie Roland Filenet Admin 07/09/24 Angela Pozo Filenet Admin 07/09/24 06/12/25 [facility] 06/12/23 Ezekiel Patricia Filenet AdminAudio Installer 06/13/25 documented as of this encounter
--- OUTSIDE RECORDS SUMMARY | 2025-08-01 11:19 | XMS_ITS | Encounter Summary ---
Author Organization [employer] Address [address] [place] [address] Care Team Providers Care Watch Train Assembler Name Role Phone Chato Thomason MD Primary Care Provider [phone] Reason for Referral * Consultation (Routine) - Closed Specialty Diagnoses / Procedures Referred By Maryana singh Referred To Contact Physical Therapy Diagnoses Lymphatic edema Chato Thomason MD [address] [place] [address] Phone: tel: fax: Referral ID Status Reason Start Date Expiration Date V isits Requested Visits Authorized [id number] Closed Specialty Services Required 03/16/2025 03/16/2026 1 1 * Consultation (Routine) - Authorized Specialty Diagnoses / Procedures Referred By Maryana singh Referred To Contact Gastroenterology Diagnoses Epigastric pain Chato Thomason MD [address] [place] [address] Phone: tel: fax: Yomi Hernandes MD [address] [place] [address] Phone: tel: fax: Referral ID Status Reason Start Date Expiration Date Visits Requested Visits Authorized [id number] Authorized Specialty Services Required 03/04/2025 03/04/2026 1 1 * Consultation (Routine) - Closed Specialty Diagnoses / Procedures Referred By Contac t Referred To Contact Occupational Therapy Diagnoses Lymphatic edema Chato Thomason MD [address] [place] [address] Phone: tel: fax: Referral ID Status Reason Start Date Expiration Date V isits Requested Visits Authorized [id number] Closed Specialty Services Required 03/04/2025 03/04/2026 1 1 Encounter Details Date Type Department Care Team (Late st Contact Info) Description 03/04/2025 Orders Only [facility] CHC MED & PEDS [address] [place] [address] Chato Thomason MD [address] [place] [address] Lymphatic edema (Primary Dx); Epigastric pain Social [...] ([facility] st Contact Info) Description 08/11/2025 10:30 AM EDT Office Visit [facility] MED & PEDS [address] [place] [address] Chato Thomason MD [address] [place] [address] 08/25/2025 2:30 PM EDT Clinical Support [facility] MED & PEDS [address] [place] [address] Linda Pelaez RN 505 [place] [address] 09/12/2025 1:30 PM EST Telemedicine [facility] MED & PEDS [address] [place] [address] Linda Pelaez RN [address] [place] [address] Scheduled Referrals Name Type Priority Associated Diagnoses [...] documented as of this encounter Care Teams Watch Train Assembler Relationship Specialty Start Date End Date Chato Thomason MD [address] [place] [address] PCP - General Internal Medicine 10/27/18 Mackenzie Roland Drum Builder 07/09/24 Angela Pozo Drum Builder 07/09/24 06/12/25 [facility] 06/12/23 Ezekiel Patricia Drum BuilderSupervisor Heat Treating 06/13/25 documented as of this encounter
--- OUTSIDE RECORDS SUMMARY | 2025-08-01 11:19 | XMS_ITS | Encounter Summary ---
Author Organization [employer] Address [address] [place] [address] 7t [place] [address] Care Team Providers Care Websphere Portal Developer Name Role Phone Chato Thomason MD Primary Care Provider [phone] Kelsey Minaya Unavailable Encounter Details Date Type Department Care Team (Late st Contact Info) Description 02/26/2024 Orders Only [facility] [address] [place], [place] [phone] ProviderColleen MD Social History Tobacco Use Types [...] [facility] [address] [place] [address] Chato Thomason MD 505 [place] [address] 08/25/2025 2:30 PM EDT Clinical Support [facility] [address] [place] [address] Linda Pelaez RN 505 [place] [address] 09/12/2025 1:30 PM EST Telemedicine [facility] [address] [place] [address] Linda Pelaez RN 505 [place] [address] documented as of this encounter Procedures Procedure Name Priority Date/Time Associated Diagnosis Comments PATHOLOGY REPORT (HISTOPATHOLOGY) Routine 02/24/2024 3:36 PM EDT documented in this encounter Results * Pathology Report (02/24/2024 3:36 PM EDT) Tissue us Historical Provider LAB PATHOLOGY ORDERABLES Final Result documented in this encounter Visit Diagnoses Not on filedocumented in this encounter Care Teams Websphere Portal Developer Relationship Specialty Start Date End Date Chato Thomason MD 505 [place] [address] PCP - General Internal Medicine 10/27/18 Kelsey Minaya Community Health Worker 06/08/2407/07 Eliane Metzger Excel DeveloperBiomechanical Engineer 01/29/24 07/08/24 Mackenzie Roland Excel Developer 07/09/24 Angela Pozo Excel Developer 07/09/24 06/12/25 [facility] 06/12/23 Ezekiel Patricia Excel DeveloperBiomechanical Engineer 06/13/25 documented as of this encounter
--- OUTSIDE RECORDS SUMMARY | 2025-08-01 11:19 | XMS_ITS | Encounter Summary ---
Author Organization [employer] Address [address] [facility] 7 [place] [address] Care Team Providers Care Workday Financials Consultant Name Role Phone Chato Thomason MD Primary Care Provider [phone] Reason for Visit * Reason Onset Date Comments Med Refill 02/21/2025 Encounter Details Date Type Department Care Team ([facility] st Contact Info) Description 02/21/2025 Telephone [facility] MEDICINE [address] [place], [place] [phone] Chato Thomason MD 505 [place], [place] [phone] Med Refill Social History Tobacco Use Types [...] 1 MG tablet To be sent to: [facility] [place] [address] documented in this encounter Plan of Treatment Upcoming Encounters Date Type Department Care Team ([facility] st Contact Info) Description 08/11/2025 10:30 AM EDT Office Visit [facility]ED[facility] [address] [place] [address] Chato Thomason MD 505 [facility] [place] [address] 08/25/2025 2:30 PM EDT Clinical Support [facility]ED[facility] [address] [place] [address] Linda Pelaez RN 505 [facility] [place] [address] 09/12/2025 1:30 PM EST Telemedicine [facility] MED & PEDS 505 [place] [address] Linda Pelaez RN 505 [place], [place] [phone] documented as of this encounter Visit Diagnoses Not on filedocumented in this encounter Additional Health Concerns Assessment Noted Time PHQ-9 Depression Total Score: 19 024 3:44 PM EDT documented as of this encounter Care Teams Workday Financials Consultant Relationship Specialty Start Date End Date Chato Thomason MD 505 [place] [address] PCP - General Internal Medicine 10/27/18 Mackenzie Roland Customer Service Advisor 07/09/24 Angela Pozo Customer Service Advisor 07/09/24 06/12/25 [facility] 06/12/23 Ezekiel Patricia Customer Service AdvisorSurgical Instrument Repair Specialist 06/13/25 documented as of this encounter
--- OUTSIDE RECORDS SUMMARY | 2025-08-01 11:19 | XMS_ITS | Encounter Summary ---
Author Organization [employer] Address 75 [facility] 7 [place] [address] Care Team Providers Care Production Sound Mixer Name Role Phone Chato Thomason MD Primary Care Provider [phone] Reason for Visit * Reason Onset Date Comments Med Refill 02/02/2025 Encounter Details Date Type Department Care Team ([facility] st Contact Info) Description 02/02/2025 Telephone [facility] MEDICINE 230 [place], [place] [phone] Chato Thomason MD 505 [place], [place] [phone] Med Refill Social History Tobacco Use Types [...] immediate release tablet To be sent to: [facility] [place], [place] - [address] [place] [address] documented in this encounter Plan of Treatment Upcoming Encounters Date Type Department Care Team ([facility] st Contact Info) Description 08/11/2025 10:30 AM EDT Office Visit [facility] MED & PEDS 505 [place] [address] Chato Thomason MD 505 [place] [address] 08/25/2025 2:30 PM EDT Clinical Support [facility] MED & PED[facility] [address] [place] [address] Linda Pelaez RN 505 [place] [address] 09/12/2025 1:30 PM EST Telemedicine [facility] CHC MED & PEDS [address] [place] [address] Linda Pelaez RN 505 [place], [place] [phone] documented as of this encounter Visit Diagnoses Diagnosis 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) Malignant neoplasm of larynx, unspecified site documented in this encounter Additional Health Concerns Assessment Noted Time PHQ-9 Depression Total Score: 19 024 3:44 PM EDT documented as of this encounter Care Teams Production Sound Mixer Relationship Specialty Start Date End Date Chato Thomason MD 505 [place], [place] [phone] PCP - General Internal Medicine 10/27/18 Mackenzie Roland Eeg Technician 07/09/24 Angela Pozo Eeg Technician 07/09/24 06/12/25 [facility] 06/12/23 Ezekiel Patricia Eeg TechnicianParking Enforcement Manager 06/13/25 documented as of this encounter
--- OUTSIDE RECORDS SUMMARY | 2025-08-01 11:19 | XMS_ITS | Encounter Summary ---
Author Organization [employer] Address 75 [facility] 7t [place] [address] Care Team Providers Care Hydraulic Specialist Name Role Phone Chato Thomason MD Primary Care Provider [phone] Kelsey Minaya Unavailable Encounter Details Date Type Department Care Team ([facility] st Contact Info) Description 03/19/2024 Orders Only [facility] CHC MED & PEDS [address] [place], [place] [phone] ProviderColleen MD Social History Tobacco Use Types [...] Description 08/11/2025 10:30 AM EDT Office Visit [facility] MED & PEDS 505 [place] [address] Chato Thomason MD 505 [place] [address] 08/25/2025 2:30 PM EDT Clinical Support [facility] MED & PEDS [address] [place] [address] Linda Pelaez RN 505 [place] [address] 09/12/2025 1:30 PM EST Telemedicine [facility] MED & PEDS 505 [place] [address] Linda Pelaez RN 505 [place] [address] documented as of this encounter Procedures Procedure Name Priority Date/Time Associated Diagnosis Comments SURGICAL PATHOLOGY Routine 03/15/2024 9:13 AM EDT documented in this encounter Results * Surgical Pathology (03/15/2024 9:13 AM EDT) us Historical Provider LAB PATHOLOGY ORDERABLES Final Result documented in this encounter Visit Diagnoses Not on filedocumented in this encounter Care Teams Hydraulic Specialist Relationship Specialty Start Date End Date Chato Thomason MD 505 [place] [address] PCP - General Internal Medicine 10/27/18 Kelsey Minaya Community Health Worker 06/08/2407/07 Eliane Metzger Casing Finisher And StufferRadar Tester 01/29/24 07/08/24 Mackenzie Roland Casing Finisher And Stuffer 07/09/24 Angela Pozo Casing Finisher And Stuffer 07/09/24 06/12/25 [facility] 06/12/23 Ezekiel Patricia Casing Finisher And StufferRadar Tester 06/13/25 documented as of this encounter
--- OUTSIDE RECORDS SUMMARY | 2025-08-01 11:19 | XMS_ITS | Encounter Summary ---
Author Organization [employer] Address [address] [place] [address] 7 [place] [address] Care Team Providers Care Ophthalmic Asst Name Role Phone Chato Thomason MD Primary Care Provider [phone] Kelsey Minaya Unavailable Reason for Visit * Reason Onset Date Comments PT1 06/07/2024 Encounter Details Date Type Department Care Team ([facility] st Contact Info) Description 06/07/2024 Telephone [facility] CHC MED & PEDS [address] [place], [place] [phone] Chato Thomason MD 505 [place], [place] [phone] PT1 Social History Tobacco Use Types Packs/Day [...] Y/N: Yes Provider name or facility name: [facility] Facility Address: [address] [place] [address] Escort needed: Y/N: Yes Do you have a wheelchair: Y/N: No If yes- Manual or electric: n/a Visits: 1 x week documented in this encounter Plan of Treatment Upcoming Encounters Date Type Department Care Team ([facility] st Contact Info) Description 08/11/2025 10:30 AM EDT Office Visit [facility] MED & PEDS [address] [place] [address] Chato Thomason MD 505 [place] [address] 08/25/2025 2:30 PM EDT Clinical Support [facility] MED & PEDS [address] [place] [address] Linda Pelaez RN 505 [place] [address] 09/12/2025 1:30 PM EST Telemedicine [facility] MED & PEDS 505 [place] [address] Linda Pelaez RN 505 [place] [address] documented as of this encounter Visit Diagnoses Not on filedocumented in this encounter Care Teams Ophthalmic Asst Relationship Specialty Start Date End Date Chato Thomason MD [address] [place] [address] PCP - General Internal Medicine 10/27/18 Kelsey Minaya Community Health Worker 06/08/2407/07 Eliane Metzger Vice ChancellorCyber Crime Investigator 01/29/24 07/08/24 Mackenzie Roland Vice Chancellor 07/09/24 Angela Pozo Vice Chancellor 07/09/24 06/12/25 [facility] 06/12/23 Ezekiel Patricia Vice ChancellorCyber Crime Investigator 06/13/25 documented as of this encounter
--- OUTSIDE RECORDS SUMMARY | 2025-08-01 11:19 | XMS_ITS | Encounter Summary ---
Author Organization [employer] Address [address] [facility] 7 [place] [address] Care Team Providers Care Vet Tech Name Role Phone Chato Thomason MD Primary Care Provider [phone] Kelsey Minaya Unavailable Reason for Visit * Reason Onset Date Comments Call Back Request 05/03/2024 Encounter Details Date Type Department Care Team ([facility] st Contact Info) Description 05/03/2024 Telephone [facility] MEDICINE 230 [place] [address] Chato Thomason MD 505 [place], [place] [phone] Call Back Request Social History Tobacco Use [...] - 05/03/2024 4:37 PM EDT Tc from [facility] requesting call back to discuss new referral. Joyce stated carecoordination attempted to contact pt but he wasn't able to answer due to pt not being able to speak. Please contact Joyce at [phone]. documented in this encounter Plan of Treatment Upcoming Encounters Date Type Department Care Team ([facility] st Contact Info) Description 08/11/2025 10:30 AM EDT Office Visit [facility] MED & PEDS [address] [place] [address] Chato Thomason MD 505 [place] [address] 08/25/2025 2:30 PM EDT Clinical Support [facility] [address] [place] [address] Linda Pelaez RN 505 [place] [address] 09/12/2025 1:30 PM EST Telemedicine [facility] MED [facility] PED[facility] [address] [place] [address] Linda Pelaez RN 505 [place] [address] documented as of this encounter Visit Diagnoses Not on filedocumented in this encounter Care Teams Vet Tech Relationship Specialty Start Date End Date Chato Thomason MD [address] [place] [address] [address] PCP - General Internal Medicine 10/27/18 Kelsey Minaya Community Health Worker 06/08/2407/07 Eliane Metzger Aerospace EngineerBlasting Coal Miner 01/29/24 07/08/24 Mackenzie Roland Aerospace Engineer 07/09/24 Angela Pozo Aerospace Engineer 07/09/24 06/12/25 [facility] 06/12/23 Ezekiel Patricia Aerospace EngineerBlasting Coal Miner 06/13/25 documented as of this encounter
--- OUTSIDE RECORDS SUMMARY | 2025-08-01 11:19 | XMS_ITS | Encounter Summary ---
Author Organization [employer] Address 75 [facility] 7t [place] [address] Care Team Providers Care Section Hand Name Role Phone Chato Thomason MD Primary Care Provider [phone] Kelsey Minaya Unavailable Encounter Details Date Type Department Care Team ([facility] st Contact Info) Description 03/01/2024 Orders Only [facility] CHC MED & PEDS [address] [place], [place] [phone] ProviderColleen MD Social History Tobacco Use Types [...] [facility] 505 [place] [address] Chato Thomason MD 505 [place] [address] 08/25/2025 2:30 PM EDT Clinical Support [facility]ED[facility] 505 [place] [address] Linda Pelaez RN 505 [place] [address] 09/12/2025 1:30 PM EST Telemedicine [facility] MED [facility]ED[facility] 505 [place] [address] Linda Pelaez RN 505 [place] [address] documented as of this encounter Procedures Procedure [...] on filedocumented in this encounter Care Teams Section Hand Relationship Specialty Start Date End Date Chato Thomason MD 505 [place] [address] PCP - General Internal Medicine 10/27/18 Kelsey Minaya Community Health Worker 06/08/2407/07 Eliane Metzger Critical Power Install TechnicianSignaling Design Engineer 01/29/24 07/08/24 Mackenzie Roland Critical Power Install Technician 07/09/24 Angela Pozo Critical Power Install Technician 07/09/24 06/12/25 [facility] 06/12/23 Ezekiel Patricia Critical Power Install TechnicianSignaling Design Engineer 06/13/25 documented as of this encounter
--- OUTSIDE RECORDS SUMMARY | 2025-08-01 11:19 | XMS_ITS | Encounter Summary ---
Author Organization [employer] Address [address] [facility] 7 [place] [address] Care Team Providers Care Director Distribution Name Role Phone Chato Thomason MD Primary Care Provider [phone] Kelsey Minaya Unavailable Reason for Visit * Reason Onset Date Comments Paperwork/Forms 02/02/2024 Encounter Details Date Type Department Care Team ([facility] st Contact Info) Description 02/02/[address] [facility] MEDICINE [address] [place] [address] Chato Thomason MD 505 [place], [place] [phone] Paperwork/Forms Social History Tobacco Use Types Packs/Day [...] - 02/02/2024 10:48 AM EDT Tc from [place] at [facility] requesting status of the Transfer Summary that was faxed over on 12/01 the order number is [id number] needs to be completed and signed by the provider as soon as possible and to be faxed to [phone] documented in this encounter Plan of Treatment Upcoming Encounters Date Type Department Care Team (Late st Contact Info) Description 08/11/2025 10:30 AM EDT Office Visit [facility] MED & PEDS 505 [place] [address] Chato Thomason MD 505 [place] [address] 08/25/2025 2:30 PM EDT Clinical Support [facility] MED [facility] PEDS 505 [place] [address] Linda Pelaez RN 505 [place] [address] 09/12/2025 1:30 PM EST Telemedicine [facility] MED [facility] PEDS 505 [place] [address] Linda Pelaez RN 505 [place] [address] documented as of this encounter Visit Diagnoses Not on filedocumented in this encounter Care Teams Director Distribution Relationship Specialty Start Date End Date Chato Thomason MD [address] [place] [address] PCP - General Internal Medicine 10/27/18 Kelsey Minaya Community Health Worker 06/08/2407/07 Eliane Metzger Pool Hall InspectorSkeet Operator 01/29/24 07/08/24 Mackenzie Roland Pool Hall Inspector 07/09/24 Angela Pozo Pool Hall Inspector 07/09/24 06/12/25 [facility] 06/12/23 Ezekiel Patricia Pool Hall InspectorSkeet Operator 06/13/25 documented as of this encounter
--- OUTSIDE RECORDS SUMMARY | 2025-08-01 11:19 | XMS_ITS | Encounter Summary ---
Author Organization [employer] Address 75 [facility] 7 [place] [address] Care Team Providers Care Booster Pump Oiler Name Role Phone Chato Thomason MD Primary Care Provider [phone] Kelsey Minaya Unavailable Reason for Visit * Reason Onset Date Comments PT-1 05/14/2024 Encounter Details Date Type Department Care Team ([facility] st Contact Info) Description 05/14/2024 Telephone [facility] MEDICINE 230 [place] [address] Chato Thomason MD 505 [place], [place] [phone] PT-1 Social History Tobacco Use Types Packs/Day [...] Y/N: Yes Provider name or facility name: [facility] Facility Address: [address] [place] [address] Escort needed: Y/N: Yes Do you have a wheelchair: Y/N: No If yes- Manual or electric: no Visits: 6 documented in this encounter Plan of Treatment Upcoming Encounters Date Type Department Care Team (Late st Contact Info) Description 08/11/2025 10:30 AM EDT Office Visit [facility] MED & PEDS 505 [place] [address] Chato Thomason MD 505 [place] [address] 08/25/2025 2:30 PM EDT Clinical Support [facility] MED [facility] PED[facility] [address] [place] [address] Linda Pelaez RN 505 [place] [address] 09/12/2025 1:30 PM EST Telemedicine [facility] MED & PEDS 505 [place] [address] Linda Pelaez RN 505 [place] [address] documented as of this encounter Visit Diagnoses Not on filedocumented in this encounter Care Teams Booster Pump Oiler Relationship Specialty Start Date End Date Chato Thomason MD [address] [place] [address] PCP - General Internal Medicine 10/27/18 Kelsey Minaya Community Health Worker 06/08/2407/07 Eliane Metzger Hydraulic Press OperatorBarrel Lathe Operator 01/29/24 07/08/24 Mackenzie Roland Hydraulic Press Operator 07/09/24 Angela Pozo Hydraulic Press Operator 07/09/24 06/12/25 [facility] 06/12/23 Ezekiel Patricia Hydraulic Press OperatorBarrel Lathe Operator 06/13/25 documented as of this encounter
--- OUTSIDE RECORDS SUMMARY | 2025-08-01 11:19 | XMS_ITS | Encounter Summary ---
Author Organization [employer] Address 75 [facility] 7 [place] [address] Care Team Providers Care Radar Technician Name Role Phone Chato Thomason MD Primary Care Provider [phone] Reason for Visit * Reason Onset Date Comments PT1 02/04/2025 Encounter Details Date Type Department Care Team ([facility] st Contact Info) Description 02/04/[address] [facility] MEDICINE 230 [place], [place] [phone] Chato Thomason MD 505 [place], [place] [phone] PT1 Social History Tobacco Use Types Packs/Day [...] Yes Provider name or facility name: [address] [place] [address] Escort needed: Y/N: Yes Do you have a wheelchair: Y/N: No If yes- Manual or electric: N/A Visits: ( 1x weekly) Patient calling requesting PT1 Home Address verified: Y/N: Yes Provider name or facility name: [address] [place] [address] Escort needed: Y/N: Yes Do you have a wheelchair: Y/N: No If yes- Manual or electric: N/A Visits: ( 1x month) documented in this encounter Plan of Treatment Upcoming Encounters Date Type Department Care Team ([facility] st Contact Info) Description 08/11/2025 10:30 AM EDT Office Visit [facility]C MED & PEDS 505 [place] [address] Chato Thomason MD 505 [place] [address] 08/25/2025 2:30 PM EDT Clinical Support [facility] MED & PEDS 505 [place] [address] Linda Pelaez RN 505 [place] [address] 09/12/2025 1:30 PM EST Telemedicine [facility] MED & PEDS 505 [place] [address] Linda Pelaez RN 505 [place] [address] documented as of this encounter Visit Diagnoses Not on filedocumented in this encounter Additional Health Concerns Assessment Noted Time PHQ-9 Depression Total Score: 19 024 3:44 PM EDT documented as of this encounter Care Teams Radar Technician Relationship Specialty Start Date End Date Chato Thomason MD 505 [place] [address] PCP - General Internal Medicine 10/27/18 Mackenzie Roland Semiconductor Wafers Marker 07/09/24 Angela Pozo Semiconductor Wafers Marker 07/09/24 06/12/25 [facility] 06/12/23 Ezekiel Patricia Semiconductor Wafers MarkerStore Sales Manager 06/13/25 documented as of this encounter
--- OUTSIDE RECORDS SUMMARY | 2025-08-01 11:19 | XMS_ITS | Encounter Summary ---
Author Organization [employer] Address 75 [facility] 7 [place] [address] Care Team Providers Care Staff Engineer Name Role Phone Chato Thomason MD Primary Care Provider [phone] Reason for Visit * Reason Onset Date Comments Med Refill 02/15/2025 Encounter Details Date Type Department Care Team ([facility] st Contact Info) Description 02/15/2025 Telephone [facility] MEDICINE 230 [place], [place] [phone] Chato Thomason MD 505 [place], [place] [phone] Med Refill Social History Tobacco Use Types [...] 150 MG tablet To be sent to: [facility] documented in this encounter Plan of Treatment Upcoming Encounters Date Type Department Care Team ([facility] st Contact Info) Description 08/11/2025 10:30 AM EDT Office Visit [facility] MED & PEDS [address] [place] [address] Chato Thomason MD 505 [place] [address] 08/25/2025 2:30 PM EDT Clinical Support [facility] MED & PEDS 505 [place] [address] Linda Pelaez RN 505 [place] [address] 09/12/2025 1:30 PM EST Telemedicine [facility] CHC MED & PEDS [address] [place] [address] Linda Pelaez, [place] [address] [place], [place] [phone] documented as of this encounter Visit Diagnoses Not on filedocumented in this encounter Additional Health Concerns Assessment Noted Time PHQ-9 Depression Total Score: 19 024 3:44 PM EDT documented as of this encounter Care Teams Staff Engineer Relationship Specialty Start Date End Date Chato Thomason MD 505 [place] [address] PCP - General Internal Medicine 10/27/18 Mackenzie Roland Geothermal Powerplant Mechanic Helper 07/09/24 Angela Pozo Geothermal Powerplant Mechanic Helper 07/09/24 06/12/25 [facility] 06/12/23 Ezekiel Patricia Geothermal Powerplant Mechanic HelperEngineer Intern 06/13/25 documented as of this encounter
--- OUTSIDE RECORDS SUMMARY | 2025-08-01 11:19 | XMS_ITS | Encounter Summary ---
Author Organization [employer] Address [address] [place] [address] 7[address] [place] [address] Care Team Providers Care Nozzle Operator Name Role Phone Chato Thomason MD Primary Care Provider [phone] Reason for Visit * Reason Onset Date Comments cx appt medical situation needs new date 025 Encounter Details Date Type Department Care Team ([facility] st Contact Info) Description 06/21/2025 Telephone [facility] CHC ADULT DENTAL [address] [place], [place] [phone] Joe Nash, DMD [address] [place], [place] [phone] cx appt medical situation needs new date [...] schedule however I would send message to senior scheduler to update. documented in this encounter Plan of Treatment Upcoming Encounters Date Type Department Care Team (Late st Contact Info) Description 08/11/2025 10:30 AM EDT Office Visit [facility] MED & [facility]EDS [address] [place] [address] Chato Thomason MD [address] [place] [address] 08/25/2025 2:30 PM EDT Clinical Support [facility] MED [facility]ED[facility] [address] [place] [address] Linda Pelaez RN [address] [place] [address] 09/12/2025 1:30 PM EST Telemedicine [facility] CHC MED & PEDS [address] [place] [address] Linda Pelaez RN [address] [place], [place] [phone] documented as of this encounter Visit Diagnoses Not on filedocumented in this encounter Additional Health Concerns Assessment Noted Time PHQ-9 Depression Total Score: 19 024 3:44 PM EDT documented as of this encounter Care Teams Nozzle Operator Relationship Specialty Start Date End Date Chato Thomason MD [address] [place] [address] PCP - General Internal Medicine 10/27/18 Mackenzie Roland Crop Nutrition Scientist 07/09/24 [facility] 06/12/23 Ezekiel Patricia Crop Nutrition ScientistPsychic Reader 06/13/25 documented as of this encounter
== END 2025-08-01 10:54 | disposition home or self-care (01) ==
PROVIDERS: PCP Internal Medicine; Visit Provider Nurse Practitioner Family
DX: J44.9 Chronic obstructive pulmonary disease, unspecified (principal)
CPT/HCPCS: 94618; 99212

== ENCOUNTER → 2025-08-01 09:52 | Outpatient (BNVA) | payer MEDICAID, SELFPAY | PROVIDERS: PCP Internal Medicine; Visit Provider Nurse Practitioner Family | DX: J44.9 Chronic obstructive pulmonary disease, unspecified (principal) | CPT/HCPCS: 94618; 99212 ==

== ENCOUNTER → 2025-09-05 07:52 | Outpatient (REF) | payer MEDICAID, SELFPAY ==
--- OUTSIDE RECORDS SUMMARY | 2025-08-11 09:30 | XMS_ITS | Encounter Summary ---
Author Organization [employer] Address [address] [facility] [address] [place] [address] Care Team Providers Care Cane Pusher Name Role Phone Chato Thomason MD Primary Care Provider [phone] Reason for Visit * Reason Comments Follow-up Encounter Details Date Type Department Care Team ([facility] Contact Info) Description 08/11/2025 10:30 AM EDT Office Visit [facility] CHC MED & PEDS [address] [place], [place] [phone] Chato Thomason MD [address] [place], [place] [phone] Drug-induced constipation (Primary Dx); Primary hypertension; Neuropathic pain; Severe episode of recurrent major depressive disorder, without psychotic features (CMS/HCC) (HCC) Social History Tobacco Use Types Packs/Day Years Used Date Smoking Tobacco: Former Cigarettes 1 - 2022 Passive Smoke Exposure: Current Smokeless Tobacco: Former Comments:Has quit smoking co mpletely 6 months ago. Alcohol Use Standard Drinks/Week Comments Never 0 (1 standard drink = 0.6 oz pur e alcohol) Depression Answer Date Recorded Patient Health Questionnaire-9 Score 27 08/11/2025 Patient Health Questionnaire-9 Score 27 08/11/2025 Last PHQ-9: Questionnaire Data Not on file 1 Housing Stability Answer Date Recorded What is your housing situation today? I have edson fontaine 08/11/[address] you li ve. Do you have problems with any of the following? None of the above 08/11/2025 Food Insecurity Answer Date Recorded Within the past 12 months, y ou worried that your food would run out before you got money to buy more: Often true 08/11/2025 Within the past 12 months,th e food you bought just didn't last and you didn't have enough money to get more: Often true Transportation Answer Date Recorded In the past 12 months, has l ack of transportation kept you from medical appts, meetings, work or from getting things needed for daily living? Yes, it has kept me from medical appointments or getting medications. 08/11/2025 Utilities Answer Date Recorded In the past 12 months, has t he [employer], gas, oil or water company threatened to shut off services in your home? No 08/11/2023 Depression Answer Date Recorded Patient Health Questionnaire-2 Score 6 08/11/2025 Internet Access Answer Date Recorded Internet Access Q1 I am not sure 08/11/2025 Internet Access Q2 Not on file 08/11/2025 Sex and Gender Information Value Date Recorded Sex Assigned at Male 08/26/2022 10:19 AM EDT Legal Sex Male 10:19 AM EDT Gender Identity Choose not to disclose 10:19 AM EDT Sexual Orientation Choose not to disclose 2021 10:19 AM EDT documented as of this encounter Last Filed Vital Signs Vital Sign Reading Time Taken Comments Blood Pressure 152/66 08/11/2025 10:37 AM EDT Pulse 68 08/11/2025 10:37 AM EDT Temperature - - Respiratory Rate 19 08/11/2025 10:37 AM EDT Oxygen Saturation 92% 08/11/2025 10:37 AM EDT Inhaled Oxygen Concentration - - Weight 147 kg (323 lb) 08/11/2025 10:37 AM EDT Height 178.5 cm (5' 10.27 ) 08/11/2025 10:37 AM EDT Body Mass Index 45.99 08/11/2025 10:37 AM EDT documented in this encounter Functional Status * Over the past 2 weeks, how often have you been bothered by any of the following problems? Question Answer Date of Assessment Author Patient Health Questionnaire-2 Score 6 07/27 11:34 AM EDT Shanti Fung MA * Little interest or pleasure in doing things Answer Date of Assessment Author Nearly every day 08/11/2025 11:34 AM Shanti Mckeon MA * Feeling down, depressed, or hopeless Answer Date of Assessment Author Nearly every day 08/11/2025 11:34 AM Shanti Mckeon MA * Trouble falling or staying asleep, or sleeping too much Answer Date of Assessment Author Nearly every day 08/11/2025 11:34 AM Shanti Mckeon MA * Feeling tired or having little energy Answer Date of Assessment Author Nearly every day 08/11/2025 11:34 AM Shanti Mckeon MA * Poor appetite or overeating Answer Date of Assessment Author Nearly every day 08/11/2025 11:34 AM Shanti Mckeon MA * Feeling bad about yourself - or that you are a failure or have let yourself or your family down Answer Date of Assessment Author Nearly every day 08/11/2025 11:34 AM Shanti Mckeon MA * Trouble concentrating on things, such as reading the newspaper or watching television Answer Date of Assessment Author Nearly every day 08/11/2025 11:34 AM Shanti Mckeon MA * Moving or speaking so slowly that other people could have noticed? Or the opposite - being so fidgety or restless that you have been moving around a lot more than usual. Answer Date of Assessment Author Nearly every day 08/11/2025 11:34 AM Shanti Mckeon MA * Thoughts that you would be better off or hurting yourself in some way Answer Date of Assessment Author Nearly every day 08/11/2025 11:34 AM Shanti Mckeon MA * Patient Health Questionnaire-9 Score Answer Date of Assessment Author 27 08/11/2025 11:34 AM Carolina Mckeon MA * How difficult have these problems made it for you to do your work, take care of things at home, or get along with other people? Answer Date of Assessment Author Extremely difficult 08/11/2025 11:34 AM Shanti Dixon MA documented as of this encounter Progress Notes * Chato Thomason MD - 08/11/2025 10:30 AM EDT SUBJECTIVE Lawrence Childers is a 60 y.o. adult who presents for Follow-up. HPI Multiple concerns: 1)Uncontrolled neuropathic pain of the lower limbs. Pt is on Gabapentin which is ineffective. Suggested to changed to Lyrica by pain management. 2) h/o COPD. Last pulmonology evaluation 08/01/2025. Pt is s/p percutaneous endoscopic Gastrostomy tube placement. H/o Tracheostomy. Noticed to maintain his saturation 90-93% walking. No change was noted to be made in the note. 3) s/p rigid esophagoscopy with dilatation over a guidewire done on 07/26/2025. No reported complication to the procedure. 4) Pt came to the office w/ mother who is very frustrated because she feels the office does not respond well enough to her son's needs. 5)Weight gain and elevated BP. Pt is off medication. Has been able to consume ice cream only in thelast few weeks. Problem List[1] Allergies[2] Medications Ordered Prior to Encounter[3] Review of Systems Constitutional: Negative for appetite change, chills and diaphoresis. Eyes: Negative for pain, redness and itching. Respiratory: Positive for shortness of breath. Negative for cough and stridor. Gastrointestinal: Positive for constipation. Negative for blood in stool and diarrhea. Musculoskeletal: Negative for gait problem, joint swelling and myalgias. Skin: Negative for pallor and rash. Psychiatric/Behavioral: Positive for dysphoric mood. OBJECTIVE Vitals: 08/11/25 1037 BP: (!) 152/66 BP Location: Left arm Patient Position: Sitting BP Cuff Size: Adult long Pulse: 68 Resp: 19 SpO2: 92% Weight: 323 lb (147 kg) Height: 5' 10.27 (1.785 m) Physical Exam Constitutional: General: Lawrence is not in acute distress. Appearance: Normal appearance. Lawrence is obese. Lawrence is not ill-appearing, toxic-appearing or diaphoretic. Cardiovascular: Rate and Rhythm: Normal rate. Pulmonary: Breath sounds: Decreased air movement present. Abdominal: General: There is distension. Skin: General: Skin is warm. Neurological: General: No focal deficit present. Mental Status: Lawrence is alert. Assessment/Plan Assessment/Plan Diagnoses and all orders for this visit: Drug-induced constipation Comments: Increase fluid intake Start MiraLAX as prescribed. Orders: - polyethylene glycol, PEG, 3350 (Miralax) 17 g packet; Take 17 g by mouth Once per day for 3 days. Primary hypertension Comments: Start losartan 50 mg once a day DASH diet Orders: - losartan (Cozaar) 50 MG tablet; Take 1 tablet (50 mg) by mouth Once per day. Neuropathic pain Comments: Discontinue Neurontin Start Lyrica as directed Severe episode of recurrent major depressive disorder, without psychotic features ([facility]) ([facility]) Comments: Already receiving psychiatric care Declines needing further help. Pt and mother are aware to contact Crisis if need be. Mr. Lawrence Childers Will greatly benefit from using an electric wheelchair to conserve energy, reduce his physical strain and breathlessness, and provide essential mobility support. It will allow Mr. Lawrence Childers to remain independent and to perform his daily tasks without excessive exertion. [1] Patient Active Problem List Diagnosis Simple chronic bronchitis (CMS/HCC) ([facility]) Chronic obstructive lung disease ([facility]) Hypercholesterolemia Hypertension Osteoarthritis Preop examination Squamous cell carcinoma of larynx ([facility]) ([facility]) History of laryngectomy Acute post-operative pain At risk for airway obstruction Class 2 obesity Dehiscence of wound Disease due to severe acute respiratory syndrome coronavirus 2 (SARS-CoV-2) Dysphagia Fistula GERD (gastroesophageal reflux disease) S/P percutaneous endoscopic gastrostomy (PEG) tube placement ([facility]) ([facility]) Severe obesity ([facility]) ([facility]) Severe episode of recurrent major depressive disorder, without psychotic features ([facility]) ([facility]) Post-traumatic stress disorder, unspecified Lymphatic edema Long-term current use of opiate analgesic [2] Allergies Allergen Reactions Lisinopril Swelling Swelling of throat [3] Current Outpatient Medications on File Prior to Visit Medication Sig Dispense Refill acetaminophen (Liquid Acetaminophen) 160 MG/5ML liquid Take 480 mg by mouth every 4 (four) hours. Advair Diskus 500-50 MCG/ACT aerosol powder INHALE ONE PUFF TWICE DAILY, RINSE MOUTH AFTER USE 60 each 3 albuterol (2.5 MG/3ML) 0.083% nebulizer solution Take 3 mL (2.5 mg) by nebulization every 4 (four) hours if needed for wheezing. 75 mL 11 Dupilumab (Dupixent) 300 MG/2ML solution auto-injector Inject 300 mg under the skin every 14 (fourteen) days. 2 mL 3 Dupixent 300 MG/2ML solution prefilled syringe injection INJECT 1 PEN (300MG) ONCE EVERY OTHER WEEKFOR MAINTENANCE famotidine (Pepcid) 10 MG tablet TAKE FOUR TABLETS ONCE DAILY 360 tablet 1 famotidine (Pepcid) 40 MG/5ML suspension TAKE 2.5 ml's BY MOUTH TWICE DAILY 50 mL 2 gabapentin (Neurontin) 250 MG/5ML solution 18 ml every 8 hours. Dose increased from 15 ml to 18 ml 3 times a day. 1620 mL 11 LORazepam (Ativan) 0.5 MG tablet Take 1 tablet (0.5 mg) by mouth every 12 (twelve) hours for 20 days. 40 tablet 0 LORazepam (Ativan) 0.5 MG tablet Take 1 tablet (0.5 mg) by mouth every 12 (twelve) hours if needed for anxiety for up to 20 days. 40 tablet 0 LORazepam (Ativan) 1 MG tablet Take 1 tablet (1 mg) by mouth every 12 (twelve) hours if needed for anxiety. 40 tablet 0 Melatonin 10 MG/ML liquid Take 10 mg by mouth if needed each day. OTC naloxone (Narcan) 4 mg/0.1 mL nasal spray Administer 1 spray (4 mg) into affected nostril(s) if needed for opioid reversal. May repeat every 2-3 minutes if needed, alternating nostrils, until medicalassistance becomes available. 2 each 2 oxyCODONE (Roxicodone) 15 MG immediate release tablet Take 0.5 tablets (7.5 mg) by mouth every 6 (six) hours if needed (Every 6 hours PRN). 15 tablet 0 traZODone (Desyrel) 150 MG tablet TAKE ONE TABLET BY MOUTH AT BEDTIME 30 tablet 1 Ventolin HFA 108 (90 Base) MCG/ACT inhaler INHALE 2 PUFFS INTO THE LUNGS EVERY 4 HOURS 18 g 11 No current facility-administered medications on file prior to visit. documented in this encounter Plan of Treatment Upcoming Encounters Date Type Department Care Team (Late st Contact Info) Description 09/12/2025 1:30 PM EST Telemedicine [facility] MED & PEDS [address] [place] [address] Linda Pelaez RN [address] [facility] [place] [address] documented as of this encounter Visit Diagnoses Diagnosis Drug-induced constipation- Primary Other constipation Primary hypertension Unspecified essential hypertension Neuropathic pain Severe episode of recurrent major depressive disorder, without psychotic features (CMS/HCC) (HCC) documented in this encounter Additional Health Concerns Assessment Noted Time PHQ-9 Depression Total Score: 27 025 11:34 AM EDT documented as of this encounter Care Teams Cane Pusher Relationship Specialty Start Date End Date Chato Thomason MD [address] [facility] [place] [address] PCP - General Internal Medicine 10/27/18 Mackenzie Roland Curb Setter 07/09/24 [facility] 06/12/23 Ezekiel Patricia Curb SetterJunior Designer 06/13/25 documented as of this encounter
--- OUTSIDE RECORDS SUMMARY | 2025-09-01 13:00 | XMS_ITS | Encounter Summary ---
Author Organization [facility] Address [address] [place] [address] Care Team Providers Care Repairer Maintenance Building Name Role Phone Physician, No Pcp Primary Care Provider Unavaila ble Reason for Visit * Consultation (Routine) - Closed Specialty Diagnoses / Procedures Referred By Maryana singh Referred To Contact Occupational Therapy Diagnoses Unspecified chronic bronchitis (CMS/HCC V24, CMS/HCC V28) Malignant neoplasm of larynx, unspecified (CMS/HCC V24, CMS/HCC V28) Neuralgia and neuritis, unspecified Chato Thomason MD [address] [place] [address] Phone: tel: fax: [facility] Occupational Therapy [address] [place] [phone] Phone: tel: fax: Referral ID Status Reason Start Date Expiration Date V isits Requested Visits Authorized [id number] Closed Specialty Services Required 02/23/2025 02/23/2026 20 20 Encounter Details Date Type Department Care Team (Late st Contact Info) Description 09/01/2025 1:00 PM EST Treatment [facility] Occupational Therapy [address] [place] [phone] Nilam Botello, OTR/L Lymphatic edema (Primary Dx) Social History Tobacco Use Types Packs/Day Years Used Date Smoking Tobacco: Never Assessed Sex and Gender Information Value Date Recorded Sex Assigned at Male 05/04/2025 3:54 PM EDT Legal Sex Male 8:43 PM EST Gender Identity Male 05/04/2025 3:54 PM EDT Sexual Orientation Straight 05/04/2025 3: 54 PM EDT documented as of this encounter Progress Notes * CHICA Aguirre/Esther - 09/01/2025 1:00 PM EST Images from the original note were not included. [facility] - Outpatient OCCUPATIONAL THERAPY discharge Date: 09/01/2025 Visit Number: [id number] Patient Name: Lawrence Childers : 1965 Age: 60 y.o. Gender: male Diagnosis: No diagnosis found. Date of Onset: 03/15/2025 Referring Provider: Chato Thomason MD Insurance: Payor: MEDICA[place] - [place] / Plan: MEDICA[place] - [place] / Product Type: *No Product type* / Patient identified by: CHICA Aguirre/Esther Language: Speaks and understands Czech as preferred language with no weed controller required Uses electrolarynx Allergies: has no allergies on file. Precautions: Neck breather G tube in place SUBJECTIVE Subjective Report: I am doing Ok. Got my G tube back in place Pain: Abdominal pain ( G tube side) OBJECTIVE : RIGHT LEFT Distance from tragus to corner of eye 8 cm 7 cm Distance from tragus to naso-labial fold 12.5 cm 12.5 cm Distance from tragus to corner of mouth 13 cm 12.5 cm Circumference neck at 10 cm inferior to tragus ( superior to stoma) 41 cm ( 04/28/2025) Circumference of head at 10 cm inferior to bottom lip =60.5 cm Circumferene of head at 8 cm inferior to bottom of lip =61 cm All facial hair has returned in face/neck TREATMENT INTERVENTION Procedures: MLD according to Dr. Montes method Inceased lymph flow through termini/profundus/ B intercostals / B para sternums and B Axilla's Encouraged lymph flow from neck/ sub mandible area and face into these drainage areas . Performed scar massage and myofascial release to right neck. NOTE That patient was, both in supine and seated on chair with upper body supported on treatment table, during this session. Self care : Re assessed lymph edema measurements in head/neck area Re viewed self management plan ( compression /HEP and self massage) Pain Reassessment: Patient did not report or demonstrate pain during session Assessment/Response To Treatment: Good Patient receptive to discharge Patient Education: Education provided: Yes self management Education Provided To: Patient and Parent utilizing Explanation and Demonstration mode(s) of education Response to Education: Good PLAN POC Development/Review: Other: discharge ( goals have been met) ; Participants: Patient and Parent Equipment Recommended: none; Equipment Provided: none GOALS Goals Addressed This Visit's Progress COMPLETED: I want to be more comfortable to sleep (pt-stated) Patient reports increased ability to sleep resulting from decreased tissue tightness/ lymph edema 09/01/2025 Patient reports no limitations sleeping : I sleep all day and all night No non verbal pain responses throughout therapy Patient has not been using suction machine during sessions Patient demo and reports less pain and anxiety COMPLETED: I want to feel less tight in my neck (pt-stated) Patient will be able to demo HEP to increase neck ROM Patient will present with increased neck extension of at least 15 degrees ( which he measured 01/25/2025) 09/01/2025 Patient is independent in HEP Patient report NO limitations in neck ROM Neck extension 100 degrees / rotation to right 55 and to left 50 degrees COMPLETED: lymph edema/ fibrosis STG Patient will present with decreased fibrosis [...] lymph edema /fibrosis in his neck /cheeks 09/01/2025 Patient has no remaining palpable / visual or measurable lymph edema in head/neck Total Treatment Time: 60 minutes Documentation completed by OMER Aguirre documented in this encounter Plan of Treatment Not on file documented as of this encounter Visit Diagnoses Diagnosis Lymphatic edema- Primary Other noninfectious lymphedema documented in this encounter Care Teams Repairer Maintenance Building Relationship Specialty Start Date End Date Physician, No Pcp PCP - General 09/22/24 documented as of this encounter
--- NOTE | 2025-09-05 07:55 | CA_ITS ---
Transthoracic Echocardiogram Patient (Last, First, Middle): Lawrence Childers M Gender: M Date of : 1965 Age: 60 Procedure Date: 09/05/2025 Procedure Type: Transthoracic Echocardiogram Location: OP Height: 182.88 cm Weight: 147.42 kg BSA: 2.62 m2 Heart Rate: bpm BP: 130 / 84 mmHg Gauge And Weigh Machine Operator: LEXUS Referring MD: Kat Bianchi PLATING DEPARTMENT HELPER Programming Development Project Manager: Wilmer Goode MD Symptoms: R06.00 - Dyspnea, unspecified Study Quality: Technically Difficult ECG Rhythm: Sinus Conclusions: - 1. Normal LV ejection fraction of 60 65% with mild LVH with impaired relaxation filling pattern 2. Cardiac valvular Dopplers within normal limits 3. Normal RV systolic pressure 4. No gross pericardial effusion Findings Left Ventricle Normal left ventricular size and systolic function. There is mildly increased left ventricular wall thickness. The visually estimated ejection fraction is between 60-65%. Spectral Doppler is indicative of an impaired relaxation filling pattern. E/E prime ratio is between 8 and 15 consistent with indeterminate filling pressures. Right Ventricle Normal right ventricular cavity size and systolic function. Atria The left atrium is likely dilated. Interatrial shunt cannot be excluded. The right atrium was not well visualized. Aortic Valve The aortic valve structure and function is likely normal. There is no aortic valve stenosis. There is no aortic valve regurgitation. Mitral Valve Normal mitral valve structure and function. There is trace mitral valve regurgitation. There is no mitral valve stenosis. Pulmonic Valve The pulmonic valve was not well visualized. Tricuspid Valve Likely normal tricuspid valve structure and function. The right ventricular systolic pressure is 24 mmHg. Normal right atrial pressure. There is no evidence of pulmonary hypertension. Great Vessels The pulmonary artery was not well visualized. Venous The inferior vena cava is normal in size and collapses greater than 50% with inspiration. Pericardium/Pleural There is no evidence of pericardial effusion. Prior Study Comparison No prior study available for comparison. Measurements 2D Linear Measurements IVSd: 1.25 0.6-0.9/0.6-1.0 cm LVIDd: 4.87 3.9-5.3/4.2-5.9 cm LVIDd Index: 1.86 2.4-3.2/2.2-3.1 cm/m2 LVIDs: 2.92 2.0-3.6 cm LVPWd: 1.25 0.7-1.1 cm Ao Root: 3.30 2.1-3.5 cm LA Diam: 4.50 2.7-3.8/3.0-4.0 cm LAIDs Index: 1.72 1.5-2.3 cm/m2 LV Mass: 296.21 67-162/88-224 g LV Mass Index: 113.06 43-95/49-115 g/m2 LVOT Diam: 2.20 3.0+(-)1.3 cm 2D Systolic Function EF 4C: 65.10 >55% EF 2C: 65.90 >55% EF BiP: 65.00 >55% Mitral Valve MV Pk E: 0.69 MV PK A: 0.66 MV Decel Time: 204.00 E/A: 1.00 E'Lateral: 10.60 E'Medial: 8.92 E/E' Med: 7.80 E/E' Lat: 6.50 PHT: 60.00 MVA PHT: 3.67 Decel [place]: 3.39 Aortic Valve AoV Pk Scott: 1.63 AoV Mn Scott: 1.08 AoV VTI: 0.32 AoV Pk Grad: 11.00 Aov Mn Grad: 6.00 CORNEL Cont.VTI: 2.01 LVOT LVOT Pk Scott: 0.90 LVOT Mn Scott: 0.59 LVOT VTI: 0.17 LVOT Pk Grad: 3.00 LVOT Mn Grad: 2.00 LVOT Diam: 2.20 LVOT Area: 3.80 Diastolic Function MV Pk E: 0.69 MV Pk A: 0.66 E/A: 1.00 E'Medial: 8.92 E/E' Med: 7.80 E' Laterial: 10.60 E/E' Lat: 6.50 Right Ventricle TAPSE (mm): 37.00 TVS' Scott: 13.00 Tricuspid Valve TR Pk Scott: 2.28 TR Pk Grad: 21.00 RA Press: 3.00 RVSP: 24.00 Great Vessels Aorta Ao Root-2D: 3.30 2.0-3.7 cm Ao Asc: 3.60 2.1-3.4 cm Pulmonary Valve PV Pk Scott: 1.10 Peak PV Grad: 5.00 Updated in Other Vendor System with Status of Final Wilmer Goode MD electronically signed on 09/06/2025 11:16:46 AM with status of Final
--- OUTSIDE RECORDS SUMMARY | 2025-09-05 07:56 | XMS_ITS | Encounter Summary ---
Author Organization [employer] Address [address] [place] [address] Care Team Providers Care Boat Master Name Role Phone Chato Thomason MD Primary Care Provider [phone] Reason for Referral * Consultation (Routine) - Closed Specialty Diagnoses / Procedures Referred By Maryana singh Referred To Contact Ophthalmology Diagnoses Primary hypertension Chato Thomason MD [address] [place] [address] Phone: tel: fax: [facility] [place] [address] [place] [address] Phone: tel:[phone] fax: Referral ID Status Reason Start Date Expiration Date V isits Requested Visits Authorized [id number] Closed Specialty Services Required 10/01/2024 10/01/2025 1 1 * Consultation (Urgent) - Closed Specialty Diagnoses / Procedures Referred By Maryana singh Referred To Contact Pharmacy Diagnoses Spongiotic dermatitis Chronic bronchitis, unspecified chronic bronchitis type (CMS/HCC) (HCC) Hypercholesterolemia Primary hypertension Chato Thomason MD [address] [place] [address] Phone: tel: fax: Referral ID Status Reason Start Date Expiration Date V isits Requested Visits Authorized [id number] Closed Continuity of Care 10/01/2024 10/01/2025 6 6 Encounter Details Date Type Department Care Team (Late st Contact Info) Description 10/01/2024 Orders Only [facility] CHC MED & PEDS [address] [place] [address] Chato Thomason MD [address] [place] [address] Spongiotic dermatitis (Primary Dx); Chronic bronchitis, unspecified [...] Upcoming Encounters Date Type Department Care Team ([facility] st Contact Info) Description 09/12/2025 1:30 PM EST Telemedicine [facility] MED & PEDS [address] [place] [address] Linda Pelaez, WALT 505 [place] [address] Scheduled Referrals Name Type Priority Associated Diagnoses [...] documented as of this encounter Care Teams Boat Master Relationship Specialty Start Date End Date Chato Thomason MD [address] [place] [address] PCP - General Internal Medicine 10/27/18 Mackenzie Roland Display Mechanic 07/09/24 Angela Pozo Display Mechanic 07/09/24 06/12/25 [facility] 06/12/23 Ezekiel Patricia Display MechanicClient Services Director 06/13/25 documented as of this encounter
--- OUTSIDE RECORDS SUMMARY | 2025-09-05 07:56 | XMS_ITS | Encounter Summary ---
Author Organization [employer] Address 75 [facility] 7t [place] [address] Care Team Providers Care Dermatologist Managing Partner Name Role Phone Chato Thomason MD Primary Care Provider [phone] Encounter Details Date Type Department Care Team ([facility] st Contact Info) Description 10/04/2024 Orders Only [facility] CHC MED & PEDS [address] [place], [place] [phone] Provider, MD Colleen Social History Tobacco Use [...] Upcoming Encounters Date Type Department Care Team ([facility] Contact Info) Description 09/12/2025 1:30 PM EST Telemedicine [facility] MED & PEDS 505 [place] [address] Linda Pelaez RN 505 [place] [address] documented as of this encounter Procedures Procedure [...] documented as of this encounter Care Teams Dermatologist Managing Partner Relationship Specialty Start Date End Date Chato Thomason MD 505 [place] [address] PCP - General Internal Medicine 10/27/18 Mackenzie Roland Site Foreman 07/09/24 Anegla Pozo Site Foreman 07/09/24 06/12/25 [facility] 06/12/23 Ezekiel Patricia Site ForemanSourcing Engineer 06/13/25 documented as of this encounter
--- OUTSIDE RECORDS SUMMARY | 2025-09-05 07:56 | XMS_ITS | Encounter Summary ---
Author Organization [employer] Address 75 [facility] 7t [place] [address] Care Team Providers Care Joint Cutter Name Role Phone Chato Thomason MD Primary Care Provider [phone] Encounter Details Date Type Department Care Team ([facility] Contact Info) Description 04/25/2025 Orders Only [facility] CHC MED & PEDS [address] [place], [place] [phone] Chato Thomason MD 505 [place], [place] [phone] Anxiety Social History Tobacco Use Types Packs/Day [...] Upcoming Encounters Date Type Department Care Team ([facility] st Contact Info) Description 09/12/2025 1:30 PM EST Telemedicine [facility] MED & PEDS [address] [place] [address] Linda Pelaez, WALT 505 [place] [address] documented as of this encounter Visit Diagnoses Diagnosis Anxiety Anxiety state, unspecified documented in this encounter Additional Health Concerns Assessment Noted Time PHQ-9 Depression Total Score: 19 024 3:44 PM EDT documented as of this encounter Care Teams Joint Cutter Relationship Specialty Start Date End Date Chato Thomason MD [address] [place] [address] PCP - General Internal Medicine 10/27/18 Mackenzie Roland Bindery Production Manager 07/09/24 Angela Pozo Bindery Production Manager 07/09/24 06/12/25 [facility] 06/12/23 Ezekiel Patricia Bindery Production ManagerGlobal Expansion Sales Director 06/13/25 documented as of this encounter
--- OUTSIDE RECORDS SUMMARY | 2025-09-05 07:56 | XMS_ITS | Encounter Summary ---
Author Organization [employer] Address 75 [facility] 7t [place] [address] Care Team Providers Care Horser Up Name Role Phone Chato Thomason MD Primary Care Provider [phone] Encounter Details Date Type Department Care Team ([facility] Contact Info) Description 05/11/2025 Orders Only [facility] CHC MED & PEDS [address] [place], [place] [phone] Chato Thomason MD 505 [place], [place] [phone] Social History Tobacco Use Types Packs/Day Years [...] Info) Description 09/12/2025 1:30 PM EST Telemedicine [facility] MED & PEDS [address] [place] [address] Linda Pelaez, WALT 505 [place] [address] documented as of this encounter Visit Diagnoses Not on filedocumented in this encounter Additional Health Concerns Assessment Noted Time PHQ-9 Depression Total Score: 19 024 3:44 PM EDT documented as of this encounter Care Teams Horser Up Relationship Specialty Start Date End Date Chato Thomason MD [address] [place] [address] PCP - General Internal Medicine 10/27/18 Mackenzie Roland Continuous Improvement Director 07/09/24 Angela Pozo Continuous Improvement Director 07/09/24 06/12/25 [facility] 06/12/23 Ezekiel Patricia Continuous Improvement DirectorChild Welfare Worker 06/13/25 documented as of this encounter
--- OUTSIDE RECORDS SUMMARY | 2025-09-05 07:56 | XMS_ITS | Encounter Summary ---
Author Organization [employer] Address 75 [facility] 7t [place] [address] Care Team Providers Care Carpet Layer Name Role Phone Chato Thomason MD Primary Care Provider [phone] Reason for Visit * Reason Comments Med Refill Encounter Details Date Type Department Care Team ([facility] st Contact Info) Description 04/25/2025 Refill [facility] [address] [place], [place] [phone] Chato Thomason MD 505 [place] [address] Anxiety Social History Tobacco Use Types Packs/Day [...] Info) Description 09/12/2025 1:30 PM EST Telemedicine [facility] MED [facility]ED[facility] 505 [place] [address] Linda Pelaez RN 505 [place] [address] documented as of this encounter Visit Diagnoses Diagnosis Anxiety Anxiety state, unspecified documented in this encounter Additional Health Concerns Assessment Noted Time PHQ-9 Depression Total Score: 19 024 3:44 PM EDT documented as of this encounter Care Teams Carpet Layer Relationship Specialty Start Date End Date Chato Thomason MD [address] [place] [address] PCP - General Internal Medicine 10/27/18 Mackenzie Roland Folder And Notcher 07/09/24 Angela Pozo Folder And Notcher 07/09/24 06/12/25 [facility] 06/12/23 Ezekiel Patricia Folder And NotcherPre Owned Sales Consultant 06/13/25 documented as of this encounter
--- OUTSIDE RECORDS SUMMARY | 2025-09-05 07:56 | XMS_ITS | Encounter Summary ---
Author Organization [employer] Address 75 [facility] 7 [place] [address] Care Team Providers Care Hydro Pneumatic Tester Name Role Phone Chato Thomason MD Primary Care Provider [phone] Reason for Visit * Reason Onset Date Comments Appointment Request 07/27/2025 Encounter Details Date Type Department Care Team ([facility] st Contact Info) Description 07/27/2025 Telephone [facility] MEDICINE [address] [place] [address] Chato Thomason MD 505 [place], [place] [phone] Appointment Request Social History Tobacco Use Types [...] out of surgery. Contact pt Mom at [phone] documented in this encounter Plan of Treatment Upcoming Encounters Date Type Department Care Team ([facility] st Contact Info) Description 09/12/2025 1:30 PM EST Telemedicine [facility] CHC MED & PEDS 505 [place] [address] Linda Pelaez, WALT 505 [place] [address] documented as of this encounter Visit Diagnoses Not on filedocumented in this encounter Additional Health Concerns Assessment Noted Time PHQ-9 Depression Total Score: 19 024 3:44 PM EDT documented as of this encounter Care Teams Hydro Pneumatic Tester Relationship Specialty Start Date End Date Chato Thomason MD [address] [place] [address] PCP - General Internal Medicine 10/27/18 Mackenzie Roland Rn Midwife 07/09/24 [facility] 06/12/23 Ezekiel Patricia Rn MidwifeStave Jointer 06/13/25 documented as of this encounter
--- OUTSIDE RECORDS SUMMARY | 2025-09-05 07:57 | XMS_ITS | Encounter Summary ---
Author Organization [employer] Address [address] [place] [address], [place] [address] Care Team Providers Care Photographic Lithographer Name Role Phone Chato Thomason MD Primary Care Provider [phone] Kelsey Minaya Unavailable Reason for Visit * Reason Onset Date Comments VNA Orders 07/28/2023 Encounter Details Date Type Department Care Team ([facility] Contact Info) Description 07/28/2023 Telephone [facility] CHC MED & PEDS 505 [place], [place] [phone] Chato Thomason MD [address] [place], [place] [phone] VNA Orders Social History Tobacco Use Types [...] - 07/28/2023 3:40 PM EDT Tc from [facility] requesting two VNA orders for: Face to Face Encounter Dated on 06/11/2023 (Please fax over office notes) Physician order Dated on 06/11/2023 [place] states that orders have a 30 day time frame. Please fax over at [phone] Please If any questions please contact Anabela at [phone] documented in this encounter Plan of Treatment Upcoming Encounters Date Type Department Care Team ([facility] st Contact Info) Description 09/12/2025 1:30 PM EST Telemedicine [facility] MED & PEDS 505 [place] [address] Linda Pelaez, RN [address] [place] [address] documented as of this encounter Visit Diagnoses Not on filedocumented in this encounter Care Teams Photographic Lithographer Relationship Specialty Start Date End Date Chato Thomason MD [address] [place] [address] PCP - General Internal Medicine 10/27/18 Kelsey Minaya Community Health Worker 06/08/2407/07 Eliane Metzger Coat CheckerArts Manager 01/29/24 07/08/24 Mackenzie Roland Coat Checker 07/09/24 Angela Pozo Coat Checker 07/09/24 06/12/25 [facility] 06/12/23 Ezekiel Patricia Coat CheckerArts Manager 06/13/25 documented as of this encounter
--- OUTSIDE RECORDS SUMMARY | 2025-09-05 07:57 | XMS_ITS | Encounter Summary ---
Author Organization [employer] Address [address] [place] [address] Care Team Providers Care Receiving Inspector Name Role Phone Chato Thomason MD Primary Care Provider [phone] Kelsey Minaya Unavailable Encounter Details Date Type Department Care Team (Late Contact Info) Description 07/03/2023 Orders Only [facility] MED & PEDS [address] [place] [address] Lucia Elmore LPN Social History Tobacco Use [...] Department Care Team (Late Contact Info) Description 09/12/2025 1:30 PM EST Telemedicine [facility] MED & PEDS [address] [place] [address] Linda Pelaez, WALT 505 [place] [address] documented as of this encounter Visit Diagnoses Not on filedocumented in this encounter Care Teams Receiving Inspector Relationship Specialty Start Date End Date Chato Thomason MD 505 [place] [address] PCP - General Internal Medicine 10/27/18 Kelsey Minaya Community Health Worker 06/08/2407/07 Eliane Metzger Wire Drawing Die MakerDiesel Engineer 01/29/24 07/08/24 Mackenzie Roland Wire Drawing Die Maker 07/09/24 Angela Pozo Wire Drawing Die Maker 07/09/24 06/12/25 [facility] 06/12/23 Ezekiel Patricia Wire Drawing Die MakerDiesel Engineer 06/13/25 documented as of this encounter
--- OUTSIDE RECORDS SUMMARY | 2025-09-05 07:57 | XMS_ITS | Encounter Summary ---
Author Organization [employer] Address 75 [facility] 7 [place] [address] Care Team Providers Care Cart Attendant Name Role Phone Chato Thomason MD Primary Care Provider [phone] Reason for Visit * Reason Onset Date Comments Med Refill 03/14/2025 Encounter Details Date Type Department Care Team (Late st Contact Info) Description 03/14/2025 Telephone [facility] MEDICINE [address] [place] [address] Chato Thomason MD 505 [place], [place] [phone] Med Refill Social History Tobacco Use Types [...] immediate release tablet To be sent to: [facility] - [place] - [address] [facility] documented in this encounter Plan of Treatment Upcoming Encounters Date Type Department Care Team (Late st Contact Info) Description 09/12/2025 1:30 PM EST Telemedicine [facility] MED & PEDS [address] [facility] [place] [address] Linda Pelaez RN 505 [facility]. [place] [address] documented as of this encounter Visit Diagnoses Not on filedocumented in this encounter Additional Health Concerns Assessment Noted Time PHQ-9 Depression Total Score: 19 024 3:44 PM EDT documented as of this encounter Care Teams Cart Attendant Relationship Specialty Start Date End Date Chato Thomason MD [address] [place] [address] PCP - General Internal Medicine 10/27/18 Mackenzie Roland Equity Sales Assistant 07/09/24 Angela Pozo Equity Sales Assistant 07/09/24 06/12/25 [facility] 06/12/23 Ezekiel Patricia Equity Sales AssistantBreast Buffer 06/13/25 documented as of this encounter
--- OUTSIDE RECORDS SUMMARY | 2025-09-05 07:57 | XMS_ITS | Encounter Summary ---
Author Organization [employer] Address 75 [facility] 7t [place] [address] Care Team Providers Care Cotton Ball Machine Tender Name Role Phone Chato Thomason MD Primary Care Provider [phone]- [phone] Kelsey Minaya Unavailable Reason for Visit * Reason Onset Date Comments Hospital Follow-up 07/05/2024 Encounter Details Date Type Department Care Team ([facility] st Contact Info) Description 07/05/2024 Telephone [facility] MEDICINE 230 [place] [address] Chato Thomason MD [address] [place], [place] [phone] Hospital Follow-up Social History Tobacco Use Types [...] the ED. His personal phone number is [phone]. We agreed to have him contact one of our team nurseif he has a concern about Mr Lawrence Childers and to update us at [facility] regularly on Friday on what Mr Lawrence Childers needs are. Bo does think that Mr Lawrence Childers would be better taken care of at a [facility] given the level of care he needs. * Telephone Encounter - Art Pena - 07/06/2024 12:12 PM EDT Tc from mackenzie with [facility] would like to PCP that they called crisis due to having suicidal ideation. Advised will leave message asd FYI. Please see previous message. Please contact at [phone] * Telephone Encounter - Ronaldo Larios - 07/05/2024 8:03 AM EDT Tc from pt requesting a HDF appt. 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 and is not able to come in physically it would need to be a Tele appt documented in this encounter Plan of Treatment Upcoming Encounters Date Type Department Care Team ([facility] st Contact Info) Description 09/12/2025 1:30 PM EST Telemedicine [facility] MED & PEDS 505 [place] [address] Linda Pelaez, WALT 505 [place] [address] documented as of this encounter Visit Diagnoses Not on filedocumented in this encounter Care Teams Cotton Ball Machine Tender Relationship Specialty Start Date End Date Chato Thomason MD [address] [place] [address] PCP - General Internal Medicine 10/27/18 Kelsey Minaya Community Health Worker 06/08/2407/07 Eliane Metzger Transmission RebuilderGlobal Climate Change Analyst 01/29/24 07/08/24 Mackenzie Roland Transmission Rebuilder 07/09/24 Angela Pozo Transmission Rebuilder 07/09/24 06/12/25 [facility] 06/12/23 Ezekiel Patricia Transmission RebuilderGlobal Climate Change Analyst 06/13/25 documented as of this encounter
--- OUTSIDE RECORDS SUMMARY | 2025-09-05 07:57 | XMS_ITS | Encounter Summary ---
Author Organization [employer] Address [address] [place] [address] Care Team Providers Care Chief Order Dispatcher Name Role Phone Chato Thomason MD Primary Care Provider [phone]- [phone] Kelsey Minaya Unavailable Encounter Details Date Type Department Care Team (Late st Contact Info) Description 12/04/2022 Abstract [facility] MEDICINE [address] [place], [place] [phone] Chato Thomason MD 505 [place], [place] [phone] Social History Tobacco Use Types Packs/Day Years [...] Info) Description 09/12/2025 1:30 PM EST Telemedicine [facility] CHC MED & PEDS 505 [place], [place] [phone] Linda Pelaez, WALT 505 [place], [place] [phone] documented as of this encounter Visit Diagnoses Not on filedocumented in this encounter Care Teams Chief Order Dispatcher Relationship Specialty Start Date End Date Chato Thomason MD [address] [place] [address] PCP - General Internal Medicine 10/27/18 Kelsey Minaya Community Health Worker 06/08/2407/07 Eliane Metzger Tile InspectorFinger Cobbler 01/29/24 07/08/24 Mackenzie Roland Tile Inspector 07/09/24 Angela Pozo Tile Inspector 07/09/24 06/12/25 [facility] 06/12/23 Ezekiel Patricia Tile InspectorFinger Cobbler 06/13/25 documented as of this encounter
--- OUTSIDE RECORDS SUMMARY | 2025-09-05 07:57 | XMS_ITS | Encounter Summary ---
Author Organization [employer] Address [address] [facility] 7t [place] [address] Care Team Providers Care General Helper Name Role Phone Chato Thomason MD Primary Care Provider [phone]- [phone] Kelsey Minaya Unavailable Encounter Details Date Type Department Care Team (Late st Contact Info) Description 11/05/2023 Abstract [facility] MEDICINE 230 [place] [address] Chato Thomason MD [address] [place], [place] [phone] Social History Tobacco Use Types Packs/Day Years [...] Upcoming Encounters Date Type Department Care Team ([facility] st Contact Info) Description 09/12/2025 1:30 PM EST Telemedicine [facility] MED & PEDS [address] [place] [address] Linda Pelaez, WALT 505 [place] [address] documented as of this encounter Visit Diagnoses Not on filedocumented in this encounter Care Teams General Helper Relationship Specialty Start Date End Date Chato Thomason MD 505 [place] [address] PCP - General Internal Medicine 10/27/18 Kelsey Minaya Community Health Worker 06/08/2407/07 Eliane Metzger Frog FarmerCumulative Effects Analyst 01/29/24 07/08/24 Mackenzie Roland Frog Farmer 07/09/24 Angela Pozo Frog Farmer 07/09/24 06/12/25 [facility] 06/12/23 Ezekiel Patricia Frog FarmerCumulative Effects Analyst 06/13/25 documented as of this encounter
--- OUTSIDE RECORDS SUMMARY | 2025-09-05 07:57 | XMS_ITS | Encounter Summary ---
Author Organization [employer] Address 75 [facility] 7t [place] [address] Care Team Providers Care Instructional Services Librarian Name Role Phone Chato Thomason MD Primary Care Provider [phone] Encounter Details Date Type Department Care Team ([facility] st Contact Info) Description 08/05/2024 Orders Only [facility] CHC MED & PEDS [address] [place], [place] [phone] Provider, MD Colleen Social History Tobacco Use [...] Upcoming Encounters Date Type Department Care Team ([facility] Contact Info) Description 09/12/2025 1:30 PM EST Telemedicine [facility] MED & PEDS 505 [place] [address] Linda Pelaez RN [address] [place] [address] documented as of this encounter Procedures Procedure [...] documented as of this encounter Care Teams Instructional Services Librarian Relationship Specialty Start Date End Date Chato Thomason MD 505 [place] [address] PCP - General Internal Medicine 10/27/18 Mackenzie Roland Pre School Teacher 07/09/24 Angela Pozo Pre School Teacher 07/09/24 06/12/25 [facility] 06/12/23 Ezekiel Patricia Pre School TeacherHighway Landscape Architect 06/13/25 documented as of this encounter
--- OUTSIDE RECORDS SUMMARY | 2025-09-05 07:57 | XMS_ITS | Encounter Summary ---
Author Organization [employer] Address 75 [facility] 7 [place] [address] Care Team Providers Care Ict Support And Test Engineers Name Role Phone Chato Thomason MD Primary Care Provider [phone] Reason for Visit * Reason Onset Date Comments Order 03/14/2025 Encounter Details Date Type Department Care Team ([facility] st Contact Info) Description 03/14/2025 Telephone [facility] MEDICINE [address] [place] [address] Chato Thomason MD [address] [place], [place] [phone] Order Social History Tobacco Use Types Packs/Day [...] Tc from Stan with outpatient rehab in [facility] in regards neuropathic pain order stating it would need to be changed to lymphedema order due to the being 2 different diagnoses. Stan requested order be put Attention to Stan If any questions you can contact Stan at [phone]. documented in this encounter Plan of Treatment Upcoming Encounters Date Type Department Care Team ([facility] st Contact Info) Description 09/12/2025 1:30 PM EST Telemedicine [facility] MED & PEDS [address] [place] [address] Linda Pelaez, WALT 505 [place] [address] documented as of this encounter Visit Diagnoses Not on filedocumented in this encounter Additional Health Concerns Assessment Noted Time PHQ-9 Depression Total Score: 19 024 3:44 PM EDT documented as of this encounter Care Teams Ict Support And Test Engineers Relationship Specialty Start Date End Date Chato Thomason MD [address] [place] [address] PCP - General Internal Medicine 10/27/18 Mackenzie Roland Folder Taper Operator 07/09/24 Angela Pozo Folder Taper Operator 07/09/24 06/12/25 [facility] 06/12/23 Ezekiel Patricia Folder Taper OperatorDigital Business Analyst 06/13/25 documented as of this encounter
--- OUTSIDE RECORDS SUMMARY | 2025-09-05 07:57 | XMS_ITS | Encounter Summary ---
Author Organization [employer] Address 75 [facility] 7t [place] [address] Care Team Providers Care Game Show Host Name Role Phone Chato Thomason MD Primary Care Provider [phone]- [phone] Kelsey Minaya Unavailable Encounter Details Date Type Department Care Team (Late st Contact Info) Description 08/28/2023 Abstract [facility] MEDICINE [address] [place] [address] Chato Thomason MD 505 [place], [place] [phone] Social History Tobacco Use Types Packs/Day Years [...] [facility] MED & PEDS 505 [place] [address] Linda Pelaez RN 505 [place] [address] documented as of this encounter Procedures Procedure [...] on filedocumented in this encounter Care Teams Game Show Host Relationship Specialty Start Date End Date Chato Thomason MD 505 [place] [address] PCP - General Internal Medicine 10/27/18 Kelsey Minaya Community Health Worker 06/08/2407/07 Eliane Metzger Armored Car MessengerAir Drier 01/29/24 07/08/24 Mackenzie Roland Armored Car Messenger 07/09/24 Angela Pozo Armored Car Messenger 07/09/24 06/12/25 [facility] 06/12/23 Ezekiel Patricia Armored Car MessengerAir Drier 06/13/25 documented as of this encounter
--- OUTSIDE RECORDS SUMMARY | 2025-09-05 07:57 | XMS_ITS | Clinical Summary ---
Author Organization [address] [facility] Address 175 [place] [address] Phone Care Team Providers Care Paper Cone Grader Name Role Phone Physician, No Pcp Primary Care Provider Unavaila ble Active Problems Problem Noted Date Diagnosed Date Lymphatic edema 09/30/2024 Encounters Date Type Department Care Team Description 09/01/2025 1:00 PM EST Treatment [facility] [address] [place] [address] [phone] Nilam Botello P, OTR/L Lymphatic edema (Primary Dx) 08/18/2025 10:00 AM EDT [facility] [address] [place] [address] [phone] Luisana Barnard, NUTRITIONAL CHEMIST Dysphagia, pharyngeal phase (Primary Dx); History of laryngectomy 08/18/2025 Plan of Care Documentation [facility] [address] [place] [address] [phone] 08/16/2025 1:30 PM EDT Treatment [facility] [address] [place] [address] [phone] Nilam Botello P, OTR/L Lymphedema of face (Primary Dx) 08/10/2025 2:30 PM EDT Treatment [facility] [address] [place] [address] [phone] Nilam Botello P, OTR/L Lymphedema of face (Primary Dx) 08/02/2025 1:30 PM EDT Treatment [facility] [address] [phone] Nilam Botello, OTR/L Lymphedema of face (Primary Dx) 08/02/2025 Plan of Care Documentation [facility] [address] [phone] 07/11/2025 1:30 PM EDT Treatment [facility] [address] [phone] Nilam Botello, OTR/L Lymphatic edema (Primary Dx) from Last 3 Months Social History Tobacco Use Types Packs/Day Years Used Date Smoking Tobacco: Never Assessed Sex and Gender Information Value Date Recorded Sex Assigned at Male 05/04/2025 3:54 PM EDT Legal Sex Male 8:43 PM EST Gender Identity Male 05/04/2025 3:54 PM EDT Sexual Orientation Straight 05/04/2025 3: 54 PM EDT Plan of Treatment Health Maintenance Due Date Last Done Comments Colorectal Cancer Screening: Colonoscopy 1966 COVID-19 Vaccine (#1) 1971 DTaP,Tdap,and Td Vaccines (1 - Tdap) 1985 Hepatitis B Vaccines (1 of 3 - 19+ 3-dose series) 1985 Pneumococcal Vaccine: 50+ Ye ars (1 of 2 - PCV) 1985 Zoster Vaccines (1 of 2) 1985 RSV Immunization Adult Patie nts (1 - Risk 50-74 years 1-dose series) 2016 HIV Screening 11/21/2023 Hepatitis C Screening 11/21/2023 Lung Cancer Screening (Low D ose CT) 11/21/2023 Social Influencers of Health Screening 11/21/2023 Hypertension/CHF/CAD Annual BMP Blood Test 09/22/2024 Depression Screening 10/27/2024 Influenza Vaccine (#1) 2025 11/10/2023 Cholesterol Screening (Lipid Panel) 12/19/2026 12/19/2021 HIB [...] on patient's age to complete this topic Insurance MEDICAID - [place] Care Teams Paper Cone Grader Relationship Specialty Start Date End Date Physician, No Pcp PCP - General 09/22/24
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
--- OUTSIDE RECORDS SUMMARY | 2025-09-05 07:57 | XMS_ITS | Encounter Summary ---
Author Organization [employer] Address 75 [facility] 7t [place] [address] Care Team Providers Care Supervisor Hide House Name Role Phone Chato Thomason MD Primary Care Provider [phone] Kelsey Minaya Unavailable Encounter Details Date Type Department Care Team ([facility] st Contact Info) Description 08/13/2023 Orders Only [facility] MED & PEDS 505 [place], [place] [phone] Chato Thomason MD 505 [place], [place] [phone] Spongiotic dermatitis (Primary Dx) Social History Tobacco [...] [facility] st Contact Info) Description 09/12/2025 1:30 PM EST Telemedicine [facility] MED & PEDS 505 [place] [address] Linda Pelaez, WALT 505 [place] [address] documented as of this encounter Visit Diagnoses Diagnosis Spongiotic dermatitis- Primary Contact dermatitis and other eczema, due to unspecified cause documented in this encounter Care Teams Supervisor Hide House Relationship Specialty Start Date End Date Chato Thomason MD 505 [place] [address] PCP - General Internal Medicine 10/27/18 Kelsey Minaya Community Health Worker 06/08/2407/07 Eliane Metzger Senior Technical SpecialistGas Appliance Installer 01/29/24 07/08/24 Mackenzie Roland Senior Technical Specialist 07/09/24 Angela Pozo Senior Technical Specialist 07/09/24 06/12/25 [facility] 06/12/23 Ezekiel Patricia Senior Technical SpecialistGas Appliance Installer 06/13/25 documented as of this encounter
--- OUTSIDE RECORDS SUMMARY | 2025-09-05 07:57 | XMS_ITS | Encounter Summary ---
Author Organization [employer] Address [address] [place] [address], [place] [address] Care Team Providers Care Correctional Case Manager Name Role Phone Chato Thomason MD Primary Care Provider [phone] Kelsey Minaya Unavailable Reason for Referral * Consultation (Routine) - Closed Specialty Diagnoses / Procedures Referred By Contac t Referred To Contact Podiatry Diagnoses Nail problem Chato Thomason MD 505 [place] [address] Phone: tel: fax: Referral ID Status Reason Start Date Expiration Date V isits Requested Visits Authorized [id number] Closed Specialty Services Required 06/11/2024 06/11/2025 1 1 Encounter Details Date Type Department Care Team ([facility] st Contact Info) Description 06/11/2024 Orders Only [facility] CHC MED & PEDS 505 [place] [address] Chato Thomason MD 505 [place] [address] Nail problem (Primary Dx); Anxiety Social History Tobacco Use Types Packs/Day Years Used Date Smoking Tobacco: Former Cigarettes 1 25 2022 Passive Smoke Exposure: Current Smokeless [...] Info) Description 09/12/2025 1:30 PM EST Telemedicine [facility] MED & PEDS 505 [place] [address] Linda Pelaez RN 505 [place] [address] Scheduled Referrals Name Type Priority Associated Diagnoses Orde r Schedule Referral to Podiatry Outpatient Referral Routine Nail problem Expected: 06/11/2024 (Approximate), Expires: 06/11/2025 documented as of this encounter Visit Diagnoses Diagnosis Nail problem- Primary Other specified disease of nail Anxiety Anxiety state, unspecified documented in this encounter Care Teams Correctional Case Manager Relationship Specialty Start Date End Date Chato Thomason MD 505 [place] [address] PCP - General Internal Medicine 10/27/18 Kelsey Minaya Community Health Worker 06/08/2407/07 Eliane Metzger Distillation OperatorDirector Title 01/29/24 07/08/24 Mackenzie Roland Distillation Operator 07/09/24 Angela Pozo Distillation Operator 07/09/24 06/12/25 [facility] 06/12/23 Ezekiel Patricia Distillation OperatorDirector Title 06/13/25 documented as of this encounter
--- OUTSIDE RECORDS SUMMARY | 2025-09-05 07:57 | XMS_ITS | Encounter Summary ---
Author Organization [employer] Address 75 [facility] 7 [place] [address] Care Team Providers Care Chief Cardiopulmonary Technologist Name Role Phone Chato Thomason MD Primary Care Provider [phone]- [phone] Reason for Visit * Reason Onset Date Comments Referral 08/05/2024 Encounter Details Date Type Department Care Team ([facility] Contact Info) Description 08/05/2024 Telephone [facility] CHC MED & PEDS 505 [place], [place] [phone] Chato Thomason MD 505 [place], [place] [phone] Referral Social History Tobacco Use Types Packs/Day [...] requesting to re new referral to [facility] Address: [address] [place] [address] [place] [address] documented in this encounter Plan of Treatment Upcoming Encounters Date Type Department Care Team ([facility] st Contact Info) Description 09/12/2025 1:30 PM EST Telemedicine [facility] MED & PEDS 505 [facility] [address] Linda Pelaez, RN 505 [place] [address] documented as of this encounter Visit Diagnoses Not on filedocumented in this encounter Additional Health Concerns Assessment Noted Time PHQ-9 Depression Total Score: 19 024 3:44 PM EDT documented as of this encounter Care Teams Chief Cardiopulmonary Technologist Relationship Specialty Start Date End Date Chato Thomason MD [address] [place] [address] PCP - General Internal Medicine 10/27/18 Mackenzie Roland Porcelain Slusher 07/09/24 Angela Pozo Porcelain Slusher 07/09/24 06/12/25 [facility] 06/12/23 Ezekiel Patricia Porcelain SlusherHospice Admitting Clerk 06/13/25 documented as of this encounter
--- OUTSIDE RECORDS SUMMARY | 2025-09-05 07:57 | XMS_ITS | Encounter Summary ---
Author Organization [employer] Address 75 [facility] 7 [place] [address] Care Team Providers Care Repeater Operator Name Role Phone Chato Thomason MD Primary Care Provider [phone] Reason for Visit * Reason Onset Date Comments Medication Question 04/01/2025 Encounter Details Date Type Department Care Team ([facility] Contact Info) Description 04/01/2025 Telephone [facility] CH[facility] MED & PEDS [address] [place], [place] [phone] Chato Thomason MD 505 [place], [place] [phone] Medication Question Social History Tobacco Use Types [...] affecting pt mood. 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) Malignant neoplasm of larynx, unspecified site Anxiety Anxiety state, unspecified documented in this encounter Additional Health Concerns Assessment Noted Time PHQ-9 Depression Total Score: 19 024 3:44 PM EDT documented as of this encounter Care Teams Repeater Operator Relationship Specialty Start Date End Date Chato Thomason MD [address] [place] [address] PCP - General Internal Medicine 10/27/18 Mackenzie Roland Ancillary Services Manager 07/09/24 Angela Pozo Ancillary Services Manager 07/09/24 06/12/25 [facility] 06/12/23 Ezekiel Patricia Ancillary Services ManagerBondactor Machine Operator 06/13/25 documented as of this encounter
--- OUTSIDE RECORDS SUMMARY | 2025-09-05 07:57 | XMS_ITS | Encounter Summary ---
Author Organization [employer] Address 75 [facility] 7 [place] [address] Care Team Providers Care Rouge Sifter And Miller Name Role Phone Chato Thomason MD Primary Care Provider [phone]- [phone] Reason for Visit * Reason Onset Date Comments Med Refill 09/13/2024 Encounter Details Date Type Department Care Team ([facility] st Contact Info) Description 09/13/2024 Telephone [facility] MEDICINE [address] [place] [address] Chato Thomason MD 505 [place], [place] [phone] Med Refill Social History Tobacco Use Types [...] immediate release tablet To be sent to: [id number] [place], [place] - [address] [facility] documented in this encounter Plan of Treatment Upcoming Encounters Date Type Department Care Team ([facility] Contact Info) Description 09/12/2025 1:30 PM EST Telemedicine [facility] CH[facility] MED & PEDS 505 [place] [address] Linda Pelaez, WALT 505 [place] [address] documented as of this encounter Visit Diagnoses Not on filedocumented in this encounter Additional Health Concerns Assessment Noted Time PHQ-9 Depression Total Score: 19 024 3:44 PM EDT documented as of this encounter Care Teams Rouge Sifter And Miller Relationship Specialty Start Date End Date Chato Thomason MD [address] [place] [address] PCP - General Internal Medicine 10/27/18 Mackenzie Roland Oxygen Therapy Teacher 07/09/24 Angela Pozo Oxygen Therapy Teacher 07/09/24 06/12/25 [facility] 06/12/23 Ezekiel Patricia Oxygen Therapy TeacherHospice Home Care Coordinator 06/13/25 documented as of this encounter
--- OUTSIDE RECORDS SUMMARY | 2025-09-05 07:57 | XMS_ITS | Encounter Summary ---
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] Upcoming Encounters Date Type Department Care Team ([facility] Contact Info) Description 09/12/2025 1:30 PM EST Telemedicine [facility] CHC MED & PEDS 505 [place] [address] Linda Pelaez, RN 505 [place] [address] Scheduled Referrals Name Type Priority Associated Diagnoses [...] documented as of this encounter Care Teams Armature [employer] Relationship Specialty Start Date End Date Chato Thomason MD [address] [place] [address] PCP - General Internal Medicine 10/27/18 Mackenzie Roland Office Receptionist 07/09/24 Angela oPzo Office Receptionist 07/09/24 06/12/25 [facility] 06/12/23 Ezekiel Patricia Office ReceptionistCone Sewer 06/13/25 documented as of this encounter
--- OUTSIDE RECORDS SUMMARY | 2025-09-05 07:57 | XMS_ITS | Encounter Summary ---
Author Organization [employer] Address 75 [facility] 7 [place] [address] Care Team Providers Care Cone Marker Name Role Phone Chato Thomason MD Primary Care Provider [phone] Reason for Visit * Reason Onset Date Comments Med Refill 01/10/2025 Encounter Details Date Type Department Care Team (Late st Contact Info) Description 01/10/2025 Telephone [facility] MEDICINE [address] [place] [address] Chato Thomason MD 505 [place], [place] [phone] Med Refill Social History Tobacco Use Types [...] immediate release tablet To be sent to: [facility] [place], [place] - [address] [place] [address] documented in this encounter Plan of Treatment Upcoming Encounters Date Type Department Care Team (Late st Contact Info) Description 09/12/2025 1:30 PM EST Telemedicine [facility] MED & PEDS [address] [place] [address] Linda Pelaez, WALT [address] [place] [address] documented as of this encounter Visit Diagnoses Not on filedocumented in this encounter Additional Health Concerns Assessment Noted Time PHQ-9 Depression Total Score: 19 024 3:44 PM EDT documented as of this encounter Care Teams Cone Marker Relationship Specialty Start Date End Date Chato Thomason MD [address] [place] [address] PCP - General Internal Medicine 10/27/18 Mackenzie Roland Supervisor Computer Operations 07/09/24 Angela Pozo Supervisor Computer Operations 07/09/24 06/12/25 [facility] 06/12/23 Ezekiel Patricia Supervisor Computer OperationsRanch Supervisor 06/13/25 documented as of this encounter
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
--- OUTSIDE RECORDS SUMMARY | 2025-09-05 07:57 | XMS_ITS | Encounter Summary ---
Author Organization [employer] Address [address] [facility] [address] [place] [address] Care Team Providers Care House Steward/Stewardess Name Role Phone Chato Thomason MD Primary Care Provider [phone] Reason for Visit * Reason Onset Date Comments Med Refill 04/04/2025 Encounter Details Date Type Department Care Team (Late st Contact Info) Description 04/04/2025 Telephone [facility] [address] [place] [address] Chato Thomason MD [address] [place], [place] [phone] Med Refill Social History Tobacco Use Types [...] immediate release tablet To be sent to: [facility] documented in this encounter Plan of Treatment Upcoming Encounters Date Type Department Care Team ([facility] st Contact Info) Description 09/12/2025 1:30 PM EST Telemedicine [facility] [address] [place] [address] Linda Pelaez RN [address] [place] [address] documented as of this encounter Visit Diagnoses Not on filedocumented in this encounter Additional Health Concerns Assessment Noted Time PHQ-9 Depression Total Score: 19 024 3:44 PM EDT documented as of this encounter Care Teams House Steward/Stewardess Relationship Specialty Start Date End Date Chato Thomason MD [address] [place] [address] PCP - General Internal Medicine 10/27/18 Mackenzie Roland Liquefied Natural Gas Operator 07/09/24 Angela Pozo Liquefied Natural Gas Operator 07/09/24 06/12/25 [facility] 06/12/23 Ezekiel Patricia Liquefied Natural Gas OperatorClinical Services Specialist 06/13/25 documented as of this encounter
--- OUTSIDE RECORDS SUMMARY | 2025-09-05 07:57 | XMS_ITS | Encounter Summary ---
Author Organization [employer] Address [address] [facility] [address] [place] [address] Care Team Providers Care Distance Learning Administrator Name Role Phone Chato Thomason MD Primary Care Provider [phone] Reason for Visit * Reason Onset Date Comments Med Refill 04/06/2025 Encounter Details Date Type Department Care Team (Late st Contact Info) Description 04/06/2025 Telephone [facility] [address] [place] [address] Chato Thomason MD [address] [place], [place] [phone] Med Refill Social History Tobacco Use Types [...] immediate release tablet To be sent to: [facility] [place], [place] - [address] [facility] documented in this encounter Plan of Treatment Upcoming Encounters Date Type Department Care Team ([facility] st Contact Info) Description 09/12/2025 1:30 PM EST Telemedicine [facility] [address] [place] [address] Linda Pelaez, WALT [address] [facility] [place] [address] documented as of this encounter Visit Diagnoses Not on filedocumented in this encounter Additional Health Concerns Assessment Noted Time PHQ-9 Depression Total Score: 19 024 3:44 PM EDT documented as of this encounter Care Teams Distance Learning Administrator Relationship Specialty Start Date End Date Chato Thomason MD [address] [place] [phone] PCP - General Internal Medicine 10/27/18 Mackenzie Roland Efficiency Miner 07/09/24 Angela Pozo Efficiency Miner 07/09/24 06/12/25 [facility] 06/12/23 Ezekiel Patricia Efficiency MinerWeb Sizer 06/13/25 documented as of this encounter
--- OUTSIDE RECORDS SUMMARY | 2025-09-05 07:57 | XMS_ITS | Encounter Summary ---
Author Organization [employer] Address 75 [facility] 7 [place] [address] Care Team Providers Care Crm Business Analyst Name Role Phone Chato Thomason MD Primary Care Provider [phone] Reason for Visit * Reason Onset Date Comments Med Refill 04/18/2025 Encounter Details Date Type Department Care Team (Late st Contact Info) Description 04/18/2025 Telephone [facility] MEDICINE 230 [place] [address] Chato Thomason MD 505 [place], [place] [phone] Med Refill Social History Tobacco Use Types [...] immediate release tablet To be sent to: [facility] - [place] - 505 [facility] documented in this encounter Plan of Treatment Upcoming Encounters Date Type Department Care Team (Late st Contact Info) Description 09/12/2025 1:30 PM EST Telemedicine [facility] MED & PEDS [address] [place] [address] Linda Pelaez, WALT [address] [place] [address] documented as of this encounter Visit Diagnoses Not on filedocumented in this encounter Additional Health Concerns Assessment Noted Time PHQ-9 Depression Total Score: 19 024 3:44 PM EDT documented as of this encounter Care Teams Crm Business Analyst Relationship Specialty Start Date End Date Chato Thomason MD [address] [place] [address] PCP - General Internal Medicine 10/27/18 Mackenzie Roland Supervisor Blood Donor Recruiters 07/09/24 Angela Pozo Supervisor Blood Donor Recruiters 07/09/24 06/12/25 [facility] 06/12/23 Ezekiel Patricia Supervisor Blood Donor RecruitersExchange Operator 06/13/25 documented as of this encounter
--- OUTSIDE RECORDS SUMMARY | 2025-09-05 07:57 | XMS_ITS | Encounter Summary ---
Author Organization [employer] Address 75 [facility] 7 [place] [address] Care Team Providers Care Crew Clerk Name Role Phone Chato Thomason MD Primary Care Provider +[phone]- [phone] Kelsey Minaya Unavailable Reason for Visit * Reason Onset Date Comments Referral 03/27/2023 Encounter Details Date Type Department Care Team ([facility] [place] st Contact Info) Description 03/27/2023 Telephone [facility] MEDICINE 230 [place] [address] Chato Thomason MD 505 [place], [place] [phone] Referral Social History Tobacco Use Types Packs/Day [...] Miscellaneous Notes * Telephone Encounter - Mandi Minaya - 03/27/2023 2:43 PM EDT Tc from [facility] requesting a referral. Date: 03/31/2023 Time: 10:15 AM Location: [address] [place] [address] Specialty: [facility] Hematology Oncology NPI Facility: [id number] Department: [id number] DX: Squamous cell Carcinoma of Epiglottis Phone #: [phone] Fax #: [phone] documented in this encounter Plan of Treatment Upcoming Encounters Date Type Department Care Team ([facility] [place] st Contact Info) Description 09/12/2025 1:30 PM EST Telemedicine [facility] MED & PEDS 505 [place] [address] Linda Pelaez, WALT 505 [place] [address] documented as of this encounter Visit Diagnoses Not on filedocumented in this encounter Care Teams Crew Clerk Relationship Specialty Start Date End Date Chato Thomason MD 505 [place] [address] PCP - General Internal Medicine 10/27/18 Kelsey Minaya Community Health Worker 06/08/2407/07 Eliane Metzger Hvac Design EngineerMold Unloader 01/29/24 07/08/24 Mackenzie Roland Hvac Design Engineer 07/09/24 Angela Pozo Hvac Design Engineer 07/09/24 06/12/25 [facility] 06/12/23 Ezekiel Patricia Hvac Design EngineerMold Unloader 06/13/25 documented as of this encounter
--- OUTSIDE RECORDS SUMMARY | 2025-09-05 07:57 | XMS_ITS | Encounter Summary ---
Author Organization [employer] Address 75 [facility] 7 [place] [address] Care Team Providers Care Tellers Supervisor Name Role Phone Chato Thomason MD Primary Care Provider [phone] Reason for Visit * Reason Onset Date Comments Referral 11/30/2024 Medication Question 11/30/2024 Encounter Details Date Type Department Care Team ([facility] st Contact Info) Description 11/30/2024 Telephone [facility] MEDICINE 230 [place] [address] Chato Thomason MD 505 [place], [place] [phone] Referral; Medication Question Social History Tobacco Use [...] the pt is in. Contact pt at [phone] documented in this encounter Plan of Treatment Upcoming Encounters Date Type Department Care Team ([facility] st Contact Info) Description 09/12/2025 1:30 PM EST Telemedicine [facility] MED & PEDS 505 [place] [address] Linda Pelaez, WALT 505 [place] [address] documented as of this encounter Visit Diagnoses Not on filedocumented in this encounter Additional Health Concerns Assessment Noted Time PHQ-9 Depression Total Score: 19 024 3:44 PM EDT documented as of this encounter Care Teams Tellers Supervisor Relationship Specialty Start Date End Date Beauzile, Thevenin, MD [address] [place] [address] PCP - General Internal Medicine 10/27/18 Mackenzie Roland Christian Science Nurse 07/09/24 Angela Pozo Christian Science Nurse 07/09/24 06/12/25 [facility] 06/12/23 Ezekiel Patricia Christian Science NurseMedical Supply Technician 06/13/25 documented as of this encounter
--- OUTSIDE RECORDS SUMMARY | 2025-09-05 07:57 | XMS_ITS | Encounter Summary ---
Author Organization [employer] Address 75 [facility] 7 [place] [address] Care Team Providers Care Bilingual Speech Language Pathologist Name Role Phone Chato Thomason MD Primary Care Provider [phone] Reason for Visit * Reason Comments Med Refill Encounter Details Date Type Department Care Team ([facility] Contact Info) Description 11/30/2024 Refill [facility] 505 [place], [place] [phone] Chato Thomason MD 505 [place], [place] [phone] Other insomnia; Anxiety; Anxiety; Squamous cell carcinoma [...] 650 mg 3 times a day and eugeniell try to get feedback in 2 to 3 weeks on the outcome. 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) Malignant neoplasm of larynx, unspecified site documented in this encounter Additional Health Concerns Assessment Noted Time PHQ-9 Depression Total Score: 19 024 3:44 PM EDT documented as of this encounter Care Teams Bilingual Speech Language Pathologist Relationship Specialty Start Date End Date Chato Thomason MD 505 [place] [address] PCP - General Internal Medicine 10/27/18 Mackenzie Roland Belt Machine Operator 07/09/24 Angela Pozo Belt Machine Operator 07/09/24 06/12/25 [facility] 06/12/23 Ezekiel Patricia Belt Machine OperatorCorn Chip Maker 06/13/25 documented as of this encounter
--- OUTSIDE RECORDS SUMMARY | 2025-09-05 07:57 | XMS_ITS | Encounter Summary ---
Author Organization [employer] Address 75 [facility] 7 [place] [address] Care Team Providers Care Inside Outside Sales Representative Name Role Phone Chato Thomason MD Primary Care Provider [phone] Reason for Visit * Reason Onset Date Comments Med Refill 11/30/2024 Encounter Details Date Type Department Care Team (Late st Contact Info) Description 11/30/2024 Telephone [facility] MEDICINE 230 [place] [address] Chato Thomason MD 505 [place], [place] [phone] Med Refill Social History Tobacco Use Types [...] 50 MG tablet To be sent to: [facility] - [place] - 505 [facility] documented in this encounter Plan of Treatment Upcoming Encounters Date Type Department Care Team ([facility] st Contact Info) Description 09/12/2025 1:30 PM EST Telemedicine [facility] MED & PEDS 505 [facility] [place] [address] Linda Pelaez RN 505 [facility]. [place] [address] documented as of this encounter Visit Diagnoses Not on filedocumented in this encounter Additional Health Concerns Assessment Noted Time PHQ-9 Depression Total Score: 19 024 3:44 PM EDT documented as of this encounter Care Teams Inside Outside Sales Representative Relationship Specialty Start Date End Date Chato Thomason MD [address] [place] [address] PCP - General Internal Medicine 10/27/18 Mackenzie Roland Sonar Technician 07/09/24 Angela Pozo Sonar Technician 07/09/24 06/12/25 [facility] 06/12/23 Ezekiel Patricia Sonar TechnicianBridge Maintainer 06/13/25 documented as of this encounter
--- OUTSIDE RECORDS SUMMARY | 2025-09-05 07:57 | XMS_ITS | Encounter Summary ---
Author Organization [employer] Address 75 [facility] 7 [place] [address] Care Team Providers Care Marble Chip Terrazzo Worker Name Role Phone Chato Thomason MD Primary Care Provider [phone] Reason for Visit * Reason Onset Date Comments Med Refill 02/24/2025 Encounter Details Date Type Department Care Team (Late st Contact Info) Description 02/24/2025 Telephone [facility] MEDICINE 230 [place] [address] Chato Thomason MD 505 [place], [place] [phone] Med Refill Social History Tobacco Use Types [...] [facility] Contact Info) Description 09/12/2025 1:30 PM EST Telemedicine [facility] MED & PEDS 505 [place] [address] Linda Pelaez RN 505 [place] [address] documented as of this encounter Visit Diagnoses Not on filedocumented in this encounter Additional Health Concerns Assessment Noted Time PHQ-9 Depression Total Score: 19 024 3:44 PM EDT documented as of this encounter Care Teams Marble Chip Terrazzo Worker Relationship Specialty Start Date End Date Chato Thomason MD [address] [place] [address] PCP - General Internal Medicine 10/27/18 Mackenzie Roland Hearing Therapy Teacher 07/09/24 Angela Pozo Hearing Therapy Teacher 07/09/24 06/12/25 [facility] 06/12/23 Ezekiel Patricia Hearing Therapy TeacherViscosity Tester 06/13/25 documented as of this encounter
--- OUTSIDE RECORDS SUMMARY | 2025-09-05 07:57 | XMS_ITS | Encounter Summary ---
Author Organization [employer] Address [address] [place] [address] Care Team Providers Care Sheet Heater Name Role Phone Chato Thomason MD Primary Care Provider +1- [phone] Kelsey Minaya Unavailable Encounter Details Date Type Department Care Team (Late st Contact Info) Description 12/04/2022 Abstract [facility] MEDICINE 230 [place], [place] [phone] Chato Thomason MD 505 [place], [place] [phone] Social History Tobacco Use Types Packs/Day Years [...] Info) Description 09/12/2025 1:30 PM EST Telemedicine [facility] MED & PEDS 505 [place], [place] [phone] Linda Pelaez, WALT 505 [place], [place] [phone] documented as of this encounter Visit Diagnoses Not on filedocumented in this encounter Care Teams Sheet Heater Relationship Specialty Start Date End Date Chato Thomason MD [address] [place] [address] PCP - General Internal Medicine 10/27/18 Kelsey Minaya Community Health Worker 06/08/2407/07 Eliane Metzger Shredded Filler Machine Wrapper LayerAssociate Professor Of Engineering 01/29/24 07/08/24 Mackenzie Roland Shredded Filler Machine Wrapper Layer 07/09/24 Angela Pozo Shredded Filler Machine Wrapper Layer 07/09/24 06/12/25 [facility] 06/12/23 Ezekiel Patricia Shredded Filler Machine Wrapper LayerAssociate Professor Of Engineering 06/13/25 documented as of this encounter
--- OUTSIDE RECORDS SUMMARY | 2025-09-05 07:57 | XMS_ITS | Encounter Summary ---
Author Organization [employer] Address 75 [facility] 7t [place] [address] Care Team Providers Care Bobbin Dumper Name Role Phone Chato Thomason MD Primary Care Provider [phone] Encounter Details Date Type Department Care Team ([facility] Contact Info) Description 12/02/2024 Orders Only [facility] MED & PEDS 505 [place], [place] [phone] Chato Thomason MD 505 [place], [place] [phone] Neuropathic pain Social History Tobacco Use Types [...] Info) Description 09/12/2025 1:30 PM EST Telemedicine [facility] MED & PEDS 505 [place] [address] Linda Pelaez, WALT 505 [place] [address] documented as of this encounter Visit Diagnoses Diagnosis Neuropathic pain documented in this encounter Additional Health Concerns Assessment Noted Time PHQ-9 Depression Total Score: 19 024 3:44 PM EDT documented as of this encounter Care Teams Bobbin Dumper Relationship Specialty Start Date End Date Chato Thomason MD 505 [place] [address] PCP - General Internal Medicine 10/27/18 Mackenzie Roland Auto Parts Manager 07/09/24 Angela Pozo Auto Parts Manager 07/09/24 06/12/25 [facility] 06/12/23 Ezekiel Patricia Auto Parts ManagerCommunity Center Coordinator 06/13/25 documented as of this encounter
--- OUTSIDE RECORDS SUMMARY | 2025-09-05 07:57 | XMS_ITS | Encounter Summary ---
Author Organization [employer] Address 75 [facility] 7[address] [place] [address] Care Team Providers Care Residential Plumber Name Role Phone Chato Thomason MD Primary Care Provider [phone] Reason for Referral * Consultation (Routine) - Closed Specialty Diagnoses / Procedures Referred By Contto singh Referred To Contact Dermatology Diagnoses Spongiotic dermatitis Chato Thomason MD [address] [place] [address] Phone: tel: fax: Gail Srinivasan [address] [place] [address] Phone: tel: fax: Referral ID Status Reason Start Date Expiration Date V isits Requested Visits Authorized [id number] Closed Specialty Services Required 08/25/2024 08/25/2025 1 1 Encounter Details Date Type Department Care Team ([facility] st Contact Info) Description 08/24/2024 Orders Only [facility] MED & PEDS 505 [place], [place] [phone] Chato Thomason MD [address] [place] [phone] Spongiotic dermatitis (Primary Dx) Social History Tobacco [...] Info) Description 09/12/2025 1:30 PM EST Telemedicine [facility] MED & PEDS 505 [place] [address] Linda Pelaez, WALT 505 [place] [address] Scheduled Referrals Name Type Priority Associated Diagnoses [...] documented as of this encounter Care Teams Residential Plumber Relationship Specialty Start Date End Date Chato Thomason MD [address] [place] [address] PCP - General Internal Medicine 10/27/18 Mackenzie Roland Diamond Powder Mixer 07/09/24 Angela Pozo Diamond Powder Mixer 07/09/24 06/12/25 [facility] 06/12/23 Ezekiel Patricia Diamond Powder MixerRn Vascular 06/13/25 documented as of this encounter
--- OUTSIDE RECORDS SUMMARY | 2025-09-05 07:57 | XMS_ITS | Encounter Summary ---
Author Organization [employer] Address 75 [facility] 7t [place] [address] Care Team Providers Care World Geography Teacher Name Role Phone Chato Thomason MD Primary Care Provider [phone] Encounter Details Date Type Department Care Team ([facility] st Contact Info) Description 07/22/2024 Orders Only [facility] MED & PEDS 505 [place], [place] [phone] Chato Thomason MD 505 [place], [place] [phone] Anxiety Social History Tobacco Use Types Packs/Day [...] Info) Description 09/12/2025 1:30 PM EST Telemedicine [facility] MED & PEDS 505 [place] [address] Linda Pelaez, WALT 505 [place] [address] documented as of this encounter Visit Diagnoses Diagnosis Anxiety Anxiety state, unspecified documented in this encounter Care Teams World Geography Teacher Relationship Specialty Start Date End Date Chato Thomason MD 505 [place] [address] PCP - General Internal Medicine 10/27/18 Mackenzie Roland Bowling Ball Engraver 07/09/24 Angela Pozo Bowling Ball Engraver 07/09/24 06/12/25 [facility] 06/12/23 Ezekiel Patricia Bowling Ball EngraverRegrinder 06/13/25 documented as of this encounter
--- OUTSIDE RECORDS SUMMARY | 2025-09-05 07:57 | XMS_ITS | Encounter Summary ---
Author Organization [employer] Address 75 [facility] 7 [place] [address] Care Team Providers Care Product Safety Manager Name Role Phone Chato Thomason MD Primary Care Provider [phone] Reason for Visit * Reason Onset Date Comments Call Back Request 07/26/2024 Encounter Details Date Type Department Care Team ([facility] st Contact Info) Description 07/26/2024 Telephone [facility] MEDICINE 230 [place] [address] Chato Thomason MD 505 [place], [place] [phone] Call Back Request Social History Tobacco Use [...] 1:57 PM EDT Tc from Mackenzie with N requesting status on referral for [facility] stating it was discussedduring last visit. Please contact Mackenzie at [phone]. documented in this encounter Plan of Treatment Upcoming Encounters Date Type Department Care Team (Late st Contact Info) Description 09/12/2025 1:30 PM EST Telemedicine [facility] MED & PEDS 505 [place] [address] Linda Pelaez, WALT 505 [place] [address] documented as of this encounter Visit Diagnoses Not on filedocumented in this encounter Care Teams Product Safety Manager Relationship Specialty Start Date End Date Chato Thomason MD 505 [place] [address] PCP - General Internal Medicine 10/27/18 Mackenzie Roland Printing Sign Machine Operator 07/09/24 Angela Pozo Printing Sign Machine Operator 07/09/24 06/12/25 [facility] 06/12/23 Ezekiel Patricia Printing Sign Machine OperatorInterventional Tech 06/13/25 documented as of this encounter
--- OUTSIDE RECORDS SUMMARY | 2025-09-05 07:57 | XMS_ITS | Encounter Summary ---
Author Organization [employer] Address 75 [facility] 7 [place] [address] Care Team Providers Care Correctional Officer Captain Name Role Phone Chato Thomason MD Primary Care Provider +[phone]- [phone] Reason for Visit * Reason Comments Med Refill Encounter Details Date Type Department Care Team ([facility] Contact Info) Description 08/31/2024 Refill [facility] 505 [place], [place] [phone] Chato Thomason MD 505 [place], [place] [phone] Squamous cell carcinoma of larynx (CMS/HCC) (Primary [...] Info) Description 09/12/2025 1:30 PM EST Telemedicine [facility] MED & PEDS 505 [place] [address] Linda Pelaez RN 505 [place] [address] documented as of this encounter Visit Diagnoses Diagnosis 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 neoplasm of larynx, unspecified site Other insomnia Anxiety Anxiety state, unspecified History of laryngectomy Other postprocedural status documented in this encounter Additional Health Concerns Assessment Noted Time PHQ-9 Depression Total Score: 19 024 3:44 PM EDT documented as of this encounter Care Teams Correctional Officer Captain Relationship Specialty Start Date End Date Chato Thomason MD 505 [place] [address] PCP - General Internal Medicine 10/27/18 Mackenzie Roland Display Designer 07/09/24 Angela Pozo Display Designer 07/09/24 06/12/25 [facility] 06/12/23 Ezekiel Patricia Display DesignerColorectal Surgeon 06/13/25 documented as of this encounter
--- OUTSIDE RECORDS SUMMARY | 2025-09-05 07:57 | XMS_ITS | Encounter Summary ---
Author Organization [employer] Address 75 [facility] 7t [place] [address] Care Team Providers Care Machine Taper Name Role Phone Chato Tohmason MD Primary Care Provider [phone] Encounter Details Date Type Department Care Team ([facility] Contact Info) Description 03/24/2025 Orders Only [facility] MED & PEDS 505 [place], [place] [phone] Chato Thomason MD 505 [place], [place] [phone] Neuropathic pain Social History Tobacco Use Types [...] Info) Description 09/12/2025 1:30 PM EST Telemedicine [facility] MED & PEDS 505 [place] [address] Linda Pelaez, WALT 505 [place] [address] documented as of this encounter Visit Diagnoses Diagnosis Neuropathic pain documented in this encounter Additional Health Concerns Assessment Noted Time PHQ-9 Depression Total Score: 19 024 3:44 PM EDT documented as of this encounter Care Teams Machine Taper Relationship Specialty Start Date End Date Chato Thomason MD 505 [place] [address] PCP - General Internal Medicine 10/27/18 Mackenzie Roland Business Mail Entry Clerk 07/09/24 Angela Pozo Business Mail Entry Clerk 07/09/24 06/12/25 [facility] 06/12/23 Ezekiel Patricia Business Mail Entry ClerkLinux Programmer 06/13/25 documented as of this encounter
--- OUTSIDE RECORDS SUMMARY | 2025-09-05 07:58 | XMS_ITS | Encounter Summary ---
Author Organization [employer] Address 75 [facility] 7t [place] [address] Care Team Providers Care Core Carrier Name Role Phone Chato Thomason MD Primary Care Provider [phone]- [phone] Kelsey Minaya Unavailable Encounter Details Date Type Department Care Team ([facility] st Contact Info) Description 03/19/2024 Orders Only [facility] MED & PEDS [address] [place], [place] [phone] ProviderColleen MD Social History Tobacco Use Types [...] [facility]S 505 [place] [address] Linda Pelaez, WALT 505 [place] [address] documented as of this encounter Procedures Procedure Name Priority Date/Time Associated Diagnosis Comments SURGICAL PATHOLOGY Routine 03/15/2024 9:13 AM EDT documented in this encounter Results * Surgical Pathology (03/15/2024 9:13 AM EDT) Historical Provider LAB PATHOLOGY ORDERABLES Final Result documented in this encounter Visit Diagnoses Not on filedocumented in this encounter Care Teams Core Carrier Relationship Specialty Start Date End Date Chato Thomason MD 505 [place] [address] PCP - General Internal Medicine 10/27/18 Kelsey Minaya Community Health Worker 06/08/2407/07 Eliane Metzger Electric Blasting Cap AssemblerStreet Supervisor 01/29/24 07/08/24 Mackenzie Roland Electric Blasting Cap Assembler 07/09/24 Angela Pozo Electric Blasting Cap Assembler 07/09/24 06/12/25 [facility] 06/12/23 Ezekiel Patricia Electric Blasting Cap AssemblerStreet Supervisor 06/13/25 documented as of this encounter
--- OUTSIDE RECORDS SUMMARY | 2025-09-05 07:58 | XMS_ITS | Encounter Summary ---
Author Organization [employer] Address 75 [facility] 7t [place] [address] Care Team Providers Care Liquor Maker Name Role Phone Chato Thomason MD Primary Care Provider [phone] Encounter Details Date Type Department Care Team ([facility] st Contact Info) Description 07/08/2025 Orders Only [facility] CHC MED & PEDS [address] [place], [place] [phone] Chato Thomason MD 505 [place], [place] [phone] Neuropathic pain; Anxiety Social History Tobacco Use [...] [facility] MED & PEDS 505 [place] [address] Linda Pelaez, WALT 505 [place] [address] documented as of this encounter Visit Diagnoses Diagnosis Neuropathic pain Anxiety Anxiety state, unspecified documented in this encounter Additional Health Concerns Assessment Noted Time PHQ-9 Depression Total Score: 19 024 3:44 PM EDT documented as of this encounter Care Teams Liquor Maker Relationship Specialty Start Date End Date Chato Thomason MD 505 [place] [address] PCP - General Internal Medicine 10/27/18 Mackenzie Roland Tinware Lithograph Press Operator 07/09/24 [facility] 06/12/23 Ezekiel Patricia Tinware Lithograph Press OperatorHealth Safety Instructor 06/13/25 documented as of this encounter
--- OUTSIDE RECORDS SUMMARY | 2025-09-05 07:58 | XMS_ITS | Encounter Summary ---
Author Organization [employer] Address 75 [facility] 7 [place] [address] Care Team Providers Care Tanker Serviceman Name Role Phone Chato Thomason MD Primary Care Provider +1- [phone] Kelsey Minaya Unavailable Reason for Visit * Reason Onset Date Comments PT-1 05/14/2024 Encounter Details Date Type Department Care Team ([facility] st Contact Info) Description 05/14/2024 Telephone [facility] MEDICINE [address] [place] [address] Chato Thomason MD 505 [place], [place] [phone] PT-1 Social History Tobacco Use Types Packs/Day [...] Y/N: Yes Provider name or facility name: [facility] Facility Address: [address] [place] [address] Escort needed: Y/N: Yes Do you have a wheelchair: Y/N: No If yes- Manual or electric: no Visits: 6 documented in this encounter Plan of Treatment Upcoming Encounters Date Type Department Care Team (Late st Contact Info) Description 09/12/2025 1:30 PM EST Telemedicine [facility] MED & PEDS 505 [place] [address] Linda Pelaez RN 505 [place] [address] documented as of this encounter Visit Diagnoses Not on filedocumented in this encounter Care Teams Tanker Serviceman Relationship Specialty Start Date End Date Chato Thomason MD [address] [place] [address] PCP - General Internal Medicine 10/27/18 Kelsey Minaya Community Health Worker 06/08/2407/07 Eliane Metzger Inspector HairspringFirer Glost Kiln 01/29/24 07/08/24 Mackenzie Roland Inspector Hairspring 07/09/24 Angela Pozo Inspector Hairspring 07/09/24 06/12/25 [facility] 06/12/23 Ezekiel Patricia Inspector HairspringFirer Glost Kiln 06/13/25 documented as of this encounter
--- OUTSIDE RECORDS SUMMARY | 2025-09-05 07:58 | XMS_ITS | Encounter Summary ---
Author Organization [employer] Address 75 [facility] 7t [place] [address] Care Team Providers Care Hair Cutter Name Role Phone Chato Thomason MD Primary Care Provider +1- [phone] Kelsey Minaya Unavailable Reason for Visit * Reason Onset Date Comments PT1 06/07/2024 Encounter Details Date Type Department Care Team ([facility] Contact Info) Description 06/07/2024 Telephone [facility] CHC MED & PEDS 505 [place], [place] [phone] Chato Thomason MD 505 [place], [place] [phone] PT1 Social History Tobacco Use Types Packs/Day [...] Y/N: Yes Provider name or facility name: [facility] Facility Address: [address] [place] [address] Escort needed: Y/N: Yes Do you have a wheelchair: Y/N: No If yes- Manual or electric: n/a Visits: 1 x week documented in this encounter Plan of Treatment Upcoming Encounters Date Type Department Care Team ([facility] st Contact Info) Description 09/12/2025 1:30 PM EST Telemedicine [facility] CHC MED & PEDS [address] [place] [address] Linda Pelaez, WALT 505 [place] [address] documented as of this encounter Visit Diagnoses Not on filedocumented in this encounter Care Teams Hair Cutter Relationship Specialty Start Date End Date Chato Thomason MD 505 [place] [address] PCP - General Internal Medicine 10/27/18 Kelsey Minaya Community Health Worker 06/08/2407/07 Eliane Metzger Cupola Tender HelperHospital Admissions Officer 01/29/24 07/08/24 Mackenzie Roland Cupola Tender Helper 07/09/24 Angela Pozo Cupola Tender Helper 07/09/24 06/12/25 [facility] 06/12/23 Ezekiel Patricia Cupola Tender HelperHospital Admissions Officer 06/13/25 documented as of this encounter
--- OUTSIDE RECORDS SUMMARY | 2025-09-05 07:58 | XMS_ITS | Encounter Summary ---
Author Organization [employer] Address 75 [facility] 7t [place] [address] Care Team Providers Care M1 Armor Crewman Name Role Phone Chato Thomason MD Primary Care Provider +1- [phone] Kelsey Minaya Unavailable Encounter Details Date Type Department Care Team (Late st Contact Info) Description 02/26/2024 Orders Only [facility] 230 [place] [address] Provider, MD Colleen Social History Tobacco Use [...] [facility] MED & PEDS 505 [place] [address] Linda Pelaez, WALT 505 [place] [address] documented as of this encounter Procedures Procedure Name Priority Date/Time Associated Diagnosis Comments PATHOLOGY REPORT (HISTOPATHOLOGY) Routine 02/24/2024 3:36 PM EDT documented in this encounter Results * Pathology Report (02/24/2024 3:36 PM EDT) Tissue Historical Provider LAB PATHOLOGY ORDERABLES Final Result documented in this encounter Visit Diagnoses Not on filedocumented in this encounter Care Teams M1 Armor Crewman Relationship Specialty Start Date End Date Chato Thomason MD 505 [place] [address] PCP - General Internal Medicine 10/27/18 Kelsey Minaya Community Health Worker 06/08/2407/07 Eliane Metzger Regulatory CoordinatorCarding Doubler 01/29/24 07/08/24 Mackenzie Roland Regulatory Coordinator 07/09/24 Angela Pozo Regulatory Coordinator 07/09/24 06/12/25 [facility] 06/12/23 Ezekiel Patricia Regulatory CoordinatorCarding Doubler 06/13/25 documented as of this encounter
--- OUTSIDE RECORDS SUMMARY | 2025-09-05 07:58 | XMS_ITS | Encounter Summary ---
Author Organization [employer] Address 75 [facility] 7 [place] [address] Care Team Providers Care Market Basket Maker Name Role Phone Chato Thomason MD Primary Care Provider [phone] Reason for Visit * Reason Onset Date Comments Durable Medical Equipment 08/23/2025 Encounter Details Date Type Department Care Team (Late st Contact Info) Description 08/23/2025 Telephone [facility] MEDICINE [address] [place] [address] Chato Thomason MD 505 [place], [place] [phone] Durable Medical Equipment Social History Tobacco Use Types Packs/Day Years [...] Telephone Encounter - Chato Thomason MD - 09/01/2025 3:25 PM EST Addendum Generated. Please let me know if anything else is needed. * Telephone Encounter - Chato Thomason MD - 08/30/2025 1:15 PM EST Please write a DME for Mr Lawrence Childers for an electric WC. Diagnosis: COPD, Severe obesity. * Telephone Encounter - Manisha Lara - 08/23/2025 1:10 PM EDT Tc from mom of pt stated that on 08/11 she talked to PCP regarding sending a script for a wheelchair pt would like an electric if is cover thru insurance. Pcp Dr. Walton documented in this encounter Plan of Treatment Upcoming Encounters Date Type Department Care Team (Late st Contact Info) Description 09/12/2025 1:30 PM EST Telemedicine [facility] CHC MED & PEDS 505 [place] [address] Linda Pelaez, WALT 505 [place], [place] [phone] documented as of this encounter Visit Diagnoses Not on filedocumented in this encounter Additional Health Concerns Assessment Noted Time PHQ-9 Depression Total Score: 27 025 11:34 AM EDT documented as of this encounter Care Teams Market Basket Maker Relationship Specialty Start Date End Date Chato Thomason MD 505 [place] [address] PCP - General Internal Medicine 10/27/18 Mackenzie Roland Construction Recruiter 07/09/24 [facility] 06/12/23 Ezekiel Patricia Construction RecruiterAcetylene Operator 06/13/25 documented as of this encounter
--- OUTSIDE RECORDS SUMMARY | 2025-09-05 07:58 | XMS_ITS | Encounter Summary ---
Author Organization [employer] Address 75 [facility] 7t [place] [address] Care Team Providers Care Supervisor Gear Repair Name Role Phone Chato Thomason MD Primary Care Provider [phone] Reason for Visit * Reason Comments Med Refill Encounter Details Date Type Department Care Team ([facility] st Contact Info) Description 08/04/2025 Refill [facility] MEDICINE [address] [place] [address] Chato Thomason MD 505 [place] [address] Anxiety Social History Tobacco Use Types Packs/Day [...] [facility] 505 [place] [address] Linda Pelaez RN 505 [place] [address] documented as of this encounter Visit Diagnoses Diagnosis Anxiety Anxiety state, unspecified documented in this encounter Additional Health Concerns Assessment Noted Time PHQ-9 Depression Total Score: 19 024 3:44 PM EDT documented as of this encounter Care Teams Supervisor Gear Repair Relationship Specialty Start Date End Date Chato Thomason MD 505 [place] [address] PCP - General Internal Medicine 10/27/18 Mackenzie Roland Vp Patient 07/09/24 [facility] 06/12/23 Ezekiel Patricia Vp PatientIt Auditor 06/13/25 documented as of this encounter
--- OUTSIDE RECORDS SUMMARY | 2025-09-05 07:58 | XMS_ITS | Encounter Summary ---
Author Organization [employer] Address 75 [facility] 7 [place] [address] Care Team Providers Care Sealer Sander Name Role Phone Chato Thomason MD Primary Care Provider [phone] Reason for Visit * Reason Onset Date Comments Medication Question 08/17/2025 Encounter Details Date Type Department Care Team ([facility] st Contact Info) Description 08/17/2025 Telephone [facility] MEDICINE 230 [place] [address] Chato Thomason MD 505 [place] [address] Medication Question Social History Tobacco Use Types [...] Telephone Encounter - Fatoumata Simeon RN - 08/17/2025 3:05 PM EDT TC received from [facility] pharmacy requesting clarification on if pt is supposed to be on gabapentin andlyrica at same time, pharmacy states usually is not prescribed concurrently. Advised will rout to provider for review and recommendation. * Telephone Encounter - Juliet Todd - 08/17/2025 8:06 AM EDT TC from patient???s mother stating that the patient was supposed to receive Lyrica from the last visit on 08/11. Pharmacy reported they never received the prescription. Contact Mom at [phone] documented in this encounter Plan of Treatment Upcoming Encounters Date Type Department Care Team ([facility] st Contact Info) Description 09/12/2025 1:30 PM EST Telemedicine [facility] MED & PEDS 505 [place] [address] Linda Pelaez RN [address] [place] [address] documented as of this encounter Visit Diagnoses Not on filedocumented in this encounter Additional Health Concerns Assessment Noted Time PHQ-9 Depression Total Score: 27 025 11:34 AM EDT documented as of this encounter Care Teams Sealer Sander Relationship Specialty Start Date End Date Chato Thomason MD 505 [place] [address] PCP - General Internal Medicine 10/27/18 Mackenzie Roland Net Software Developer 07/09/24 [facility] 06/12/23 Ezekiel Patricia Net Software DeveloperCattle Examiner 06/13/25 documented as of this encounter
--- OUTSIDE RECORDS SUMMARY | 2025-09-05 07:58 | XMS_ITS | Encounter Summary ---
Author Organization [employer] Address 75 [facility] 7 [place] [address] Care Team Providers Care Pelletising Extruder Operator Name Role Phone Chato Thomason MD Primary Care Provider +1- [phone] Kelsey Minaya Unavailable Reason for Visit * Reason Onset Date Comments Call Back Request 05/03/2024 Encounter Details Date Type Department Care Team ([facility] Contact Info) Description 05/03/2024 Telephone [facility] MEDICINE [address] [place] [address] Chato Thomason MD [address] [place], [place] [phone] Call Back Request Social History Tobacco Use [...] 4:37 PM EDT Tc from Joyce with [facility] requesting call back to discuss new referral. Joyce stated carecoordination attempted to contact pt but he wasn't able to answer due to pt not being able to speak. Please contact Joyce at [phone]. documented in this encounter Plan of Treatment Upcoming Encounters Date Type Department Care Team (Late st Contact Info) Description 09/12/2025 1:30 PM EST Telemedicine [facility] CHC MED & PEDS 505 [place] [address] Linda Pelaez, WALT 505 [place] [address] documented as of this encounter Visit Diagnoses Not on filedocumented in this encounter Care Teams Pelletising Extruder Operator Relationship Specialty Start Date End Date Chato Thomason MD [address] [place] [address] PCP - General Internal Medicine 10/27/18 Kelsey Minaya Community Health Worker 06/08/2407/07 Eliane Metzger Private Branch Exchange RepairerSailor 01/29/24 07/08/24 Mackenzie Roland Private Branch Exchange Repairer 07/09/24 Angela Pozo Private Branch Exchange Repairer 07/09/24 06/12/25 [facility] 06/12/23 Ezekiel Patricia Private Branch Exchange RepairerSailor 06/13/25 documented as of this encounter
--- OUTSIDE RECORDS SUMMARY | 2025-09-05 07:58 | XMS_ITS | Encounter Summary ---
Author Organization [employer] Address 75 [facility] 7 [place] [address] Care Team Providers Care Surgical Instrument Maker Name Role Phone Chato Thomason MD Primary Care Provider [phone] Reason for Visit * Reason Onset Date Comments PT1 02/15/2025 Encounter Details Date Type Department Care Team ([facility] st Contact Info) Description 02/15/2025 Telephone [facility] MEDICINE 230 [place] [address] Chato Thomason MD 505 [place], [place] [phone] PT1 Social History Tobacco Use Types Packs/Day [...] Y/N: Yes Provider name or facility name: [address] [place] [id number] - [facility] Escort needed: Y/N: Yes Do you have a wheelchair: Y/N: No If yes- Manual or electric: N/A Visits: (2x weekly) documented in this encounter Plan of Treatment Upcoming Encounters Date Type Department Care Team ([facility] st Contact Info) Description 09/12/2025 1:30 PM EST Telemedicine [facility] MED & PEDS 505 [place] [address] Linda Pelaez, RN 505 [place], [place] [phone] documented as of this encounter Visit Diagnoses Not on filedocumented in this encounter Additional Health Concerns Assessment Noted Time PHQ-9 Depression Total Score: 19 024 3:44 PM EDT documented as of this encounter Care Teams Surgical Instrument Maker Relationship Specialty Start Date End Date Chato Thomason MD 505 [place] [address] PCP - General Internal Medicine 10/27/18 Mackenzie Roland Cyber Security Administrator 07/09/24 Angela Pozo Cyber Security Administrator 07/09/24 06/12/25 [facility] 06/12/23 Ezekiel Patricia Cyber Security AdministratorManuscripts Archivist 06/13/25 documented as of this encounter
--- OUTSIDE RECORDS SUMMARY | 2025-09-05 07:58 | XMS_ITS | Encounter Summary ---
Author Organization [employer] Address 75 [facility] 7t [place] [address] Care Team Providers Care Facilities Custodian Name Role Phone Chato Thomason MD Primary Care Provider +1 [phone] Kelsey Minaya Unavailable Encounter Details Date Type Department Care Team ([facility] st Contact Info) Description 06/24/2024 Orders Only [facility] CHC MED & PEDS [address] [place], [place] [phone] ProviderColleen MD Social History Tobacco Use Types [...] 09/12/2025 1:30 PM EST Telemedicine [facility] MED & PEDS [address] [place] [address] Linda Pelaez RN 505 [place] [address] documented as of this encounter Procedures Procedure [...] on filedocumented in this encounter Care Teams Facilities Custodian Relationship Specialty Start Date End Date Chato Thomason MD 505 [place] [address] PCP - General Internal Medicine 10/27/18 Kelsey Minaya Community Health Worker 06/08/2407/07 Eliane Metzger Post Anesthesia Room NurseRim Fire Priming Tool Setter 01/29/24 07/08/24 Mackenzie Roland Post Anesthesia Room Nurse 07/09/24 Angela Pozo Post Anesthesia Room Nurse 07/09/24 06/12/25 [facility] 06/12/23 Ezekiel Patricia Post Anesthesia Room NurseRim Fire Priming Tool Setter 06/13/25 documented as of this encounter
--- OUTSIDE RECORDS SUMMARY | 2025-09-05 07:58 | XMS_ITS | Encounter Summary ---
Author Organization [employer] Address 75 [facility] 7 [place] [address] Care Team Providers Care Staff Radiographer Name Role Phone Chato Thomason MD Primary Care Provider [phone] Reason for Visit * Reason Onset Date Comments PT1 02/04/2025 Encounter Details Date Type Department Care Team ([facility] st Contact Info) Description 02/04/2025 Telephone [facility] MEDICINE 230 [place] [address] Chato Thomason MD 505 [place], [place] [phone] PT1 Social History Tobacco Use Types Packs/Day [...] Yes Provider name or facility name: [address] [place] [address] Escort needed: Y/N: Yes Do you have a wheelchair: Y/N: No If yes- Manual or electric: N/A Visits: ( 1x weekly) Patient calling requesting PT1 Home Address verified: Y/N: Yes Provider name or facility name: [address] [place] [address] Escort needed: Y/N: Yes Do you have a wheelchair: Y/N: No If yes- Manual or electric: N/A Visits: ( 1x month) documented in this encounter Plan of Treatment Upcoming Encounters Date Type Department Care Team (Late st Contact Info) Description 09/12/2025 1:30 PM EST Telemedicine [facility] MED & PEDS [address] [place], [place] [phone] Linda Pelaez, RN 505 [place] [address] documented as of this encounter Visit Diagnoses Not on filedocumented in this encounter Additional Health Concerns Assessment Noted Time PHQ-9 Depression Total Score: 19 024 3:44 PM EDT documented as of this encounter Care Teams Staff Radiographer Relationship Specialty Start Date End Date Chato Thomason MD 505 [place] [address] PCP - General Internal Medicine 10/27/18 Mackenzie Roland Strategy Analyst 07/09/24 Angela Pozo Strategy Analyst 07/09/24 06/12/25 [facility] 06/12/23 Ezekiel Patricia Strategy AnalystButtonhole Facer 06/13/25 documented as of this encounter
--- OUTSIDE RECORDS SUMMARY | 2025-09-05 07:58 | XMS_ITS | Encounter Summary ---
Author Organization [employer] Address 75 [facility] 7 [place] [address] Care Team Providers Care Touch Up Painter Name Role Phone Chato Thomason MD Primary Care Provider [phone] Reason for Visit * Reason Onset Date Comments Med Refill 08/19/2025 Encounter Details Date Type Department Care Team ([facility] st Contact Info) Description 08/19/2025 Telephone [facility] CHC MED & PEDS 505 [place], [place] [phone] Chato Thomason MD 505 [place], [place] [phone] Med Refill Social History Tobacco Use Types [...] encounter Miscellaneous Notes * Telephone Encounter - Damion Yo - 08/19/2025 8:07 AM EDT TC from pt requesting medication refill. Medications needing refill : LORazepam (Ativan) 0.5 MG tablet To be sent to: [facility] - [place], [place] - [address] [facility] documented in this encounter Plan of Treatment Upcoming Encounters Date Type Department Care Team (Late st Contact Info) Description 09/12/2025 1:30 PM EST Telemedicine [facility] CHC MED & PEDS [address] [place] [address] Linda Pelaez, WALT [address] [place] [address] documented as of this encounter Visit Diagnoses Not on filedocumented in this encounter Additional Health Concerns Assessment Noted Time PHQ-9 Depression Total Score: 27 025 11:34 AM EDT documented as of this encounter Care Teams Touch Up Painter Relationship Specialty Start Date End Date Chato Thomason MD [address] [place] [address] PCP - General Internal Medicine 10/27/18 Mackenzie Roland Geological Survey Field Assistant 07/09/24 [facility] 06/12/23 Ezekiel Patricia Geological Survey Field AssistantMilling/Polishing Operator 06/13/25 documented as of this encounter
--- OUTSIDE RECORDS SUMMARY | 2025-09-05 07:58 | XMS_ITS | Encounter Summary ---
Author Organization [employer] Address 75 [facility] 7t [place] [address] Care Team Providers Care Textile Clothing And Footwear Mechanic Name Role Phone Chato Thomason MD Primary Care Provider +1- [phone] Kelsey Minaya Unavailable Reason for Visit * Reason Onset Date Comments Paperwork/Forms 02/02/2024 Encounter Details Date Type Department Care Team ([facility] st Contact Info) Description 02/02/2024 Telephone [facility] MEDICINE [address] [place] [address] Chato Thomason MD 505 [place], [place] [phone] Paperwork/Forms Social History Tobacco Use Types Packs/Day [...] - 02/02/2024 10:48 AM EDT Tc from [place] at [facility] requesting status of the Transfer Summary that was faxed over on 12/01 the order number is [id number] needs to be completed and signed by the provider as soon as possible and to be faxed to [phone] documented in this encounter Plan of Treatment Upcoming Encounters Date Type Department Care Team (Late st Contact Info) Description 09/12/2025 1:30 PM EST Telemedicine [facility] CHC MED & PEDS 505 [place] [address] Linda Pelaez, WALT 505 [place] [address] documented as of this encounter Visit Diagnoses Not on filedocumented in this encounter Care Teams Textile Clothing And Footwear Mechanic Relationship Specialty Start Date End Date Chato Thomason MD 505 [place] [address] PCP - General Internal Medicine 10/27/18 Kelsey Minaya Community Health Worker 06/08/2407/07 Eliane Metzger Gripper AttacherUniversal Grinder Operator 01/29/24 07/08/24 Mackenzie Roland Gripper Attacher 07/09/24 Angela Pozo Gripper Attacher 07/09/24 06/12/25 [facility] 06/12/23 Ezekiel Patricia Gripper AttacherUniversal Grinder Operator 06/13/25 documented as of this encounter
--- OUTSIDE RECORDS SUMMARY | 2025-09-05 07:58 | XMS_ITS | Encounter Summary ---
Author Organization [employer] Address [address] [facility] 7t [place] [address] Care Team Providers Care Guide Dog Instructor Name Role Phone Chato Thomason MD Primary Care Provider [phone] Kelsey Minaya Unavailable Encounter Details Date Type Department Care Team ([facility] st Contact Info) Description 03/30/2024 Orders Only [facility] CHC MED & PEDS [address] [place], [place] [phone] ProviderColleen MD Social History Tobacco Use Types [...] [facility] MED & PEDS 505 [place] [address] Linda Pelaez, WALT 505 [place] [address] documented as of this encounter Procedures Procedure Name Priority Date/Time Associated Diagnosis Comments SURGICAL PATHOLOGY Routine 03/25/2024 8:43 AM EDT documented in this encounter Results * Surgical Pathology (03/25/2024 8:43 AM EDT) Historical Provider LAB PATHOLOGY ORDERABLES Final Result documented in this encounter Visit Diagnoses Not on filedocumented in this encounter Care Teams Guide Dog Instructor Relationship Specialty Start Date End Date Chato Thomason MD 505 [place] [address] PCP - General Internal Medicine 10/27/18 Kelsey Minaya Community Health Worker 06/08/2407/07 Eliane Metzger Health And Safety InspectorAutomatic Driller And Reamer 01/29/24 07/08/24 Mackenzie Roland Health And Safety Inspector 07/09/24 Angela Pozo Health And Safety Inspector 07/09/24 06/12/25 [facility] 06/12/23 Ezekiel Patricia Health And Safety InspectorAutomatic Driller And Reamer 06/13/25 documented as of this encounter
--- OUTSIDE RECORDS SUMMARY | 2025-09-05 07:58 | XMS_ITS | Encounter Summary ---
Author Organization [employer] Address [address] [facility] 7t [place] [address] Care Team Providers Care Shoer Name Role Phone Chato Thomason MD Primary Care Provider [phone] Encounter Details Date Type Department Care Team ([facility] Contact Info) Description 08/17/2025 Orders Only [facility] CHC MED & PEDS [address] [place], [place] [phone] Chato Thomason MD 505 [place], [place] [phone] Neuropathic pain (Primary Dx); Thrush, oral; Epigastric pain Social History Tobacco Use Types [...] [facility] MED & PEDS 505 [place] [address] Linda Pelaez, WALT 505 [place] [address] documented as of this encounter Visit Diagnoses Diagnosis Neuropathic pain- Primary Thrush, oral Epigastric pain Abdominal pain, epigastric documented in this encounter Additional Health Concerns Assessment Noted Time PHQ-9 Depression Total Score: 27 025 11:34 AM EDT documented as of this encounter Care Teams Shoer Relationship Specialty Start Date End Date Chato Thomason MD 505 [place] [address] PCP - General Internal Medicine 10/27/18 Mackenzie Roland Counseling Department Chair 07/09/24 [employer] 06/12/23 Ezekiel Patricia Counseling Department ChairCategory Specialist 06/13/25 documented as of this encounter
--- OUTSIDE RECORDS SUMMARY | 2025-09-05 07:58 | XMS_ITS | Encounter Summary ---
Author Organization [employer] Address [address] [facility] 7 [place] [address] Care Team Providers Care Social Work Associate Name Role Phone Chato Thomason MD Primary Care Provider [phone] Reason for Visit * Reason Onset Date Comments order needed 07/14/2025 Encounter Details Date Type Department Care Team ([facility] st Contact Info) Description 07/14/2025 Telephone [facility] [address] [place] [address] Chato Thomason MD 505 [place] [address] order needed Social History Tobacco Use Types [...] discuss prior message Contact pt mom at [phone] * Telephone Encounter - Jeffrey Devine - 07/14/2025 4:04 PM EDT TC from linda MATTHEWS calling requesting Order for [facility] to insert Gtube . ORDER must be addressed to Margaret weber. documented in this encounter Plan of Treatment Upcoming Encounters Date Type Department Care Team ([facility] st Contact Info) Description 09/12/2025 1:30 PM EST Telemedicine [facility] MED & PEDS 505 [place] [address] Linda Pelaez, RN 505 [place], [place] [phone] documented as of this encounter Visit Diagnoses Not on filedocumented in this encounter Additional Health Concerns Assessment Noted Time PHQ-9 Depression Total Score: 19 024 3:44 PM EDT documented as of this encounter Care Teams Social Work Associate Relationship Specialty Start Date End Date Chato Thomason MD 505 [place] [address] PCP - General Internal Medicine 10/27/18 Mackenzie Roland Lead Ruby On Rails Developer 07/09/24 [facility] 06/12/23 Ezekiel Patricia Lead Ruby On Rails DeveloperDirect Marketing Analyst 06/13/25 documented as of this encounter
--- OUTSIDE RECORDS SUMMARY | 2025-09-05 07:58 | XMS_ITS | Encounter Summary ---
Author Organization [employer] Address [address] [facility] 7t [place] [address] Care Team Providers Care Underground Miner Name Role Phone Chato Thomason MD Primary Care Provider [phone] Kelsey Minaya Unavailable Encounter Details Date Type Department Care Team ([facility] st Contact Info) Description 05/04/2024 Orders Only [facility] CHC MED & PEDS [address] [place], [place] [phone] Chato Thomason MD 505 [place], [place] [phone] Squamous cell carcinoma of larynx (CMS/HCC) ([facility] Description 09/12/2025 1:30 PM EST Telemedicine [facility] CHC MED & PEDS 505 [place] [address] Linda Pelaez, WALT 505 [place] [address] documented as of this encounter Visit Diagnoses Diagnosis 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 neoplasm of larynx, unspecified site Other insomnia documented in this encounter Care Teams Underground Miner Relationship Specialty Start Date End Date Chato Thomason MD 505 [place] [address] PCP - General Internal Medicine 10/27/18 Kelsey Minaya Community Health Worker 06/08/2407/07 Eliane Metzger Agricultural Purchasing AgentWooden Barrel Mechanic 01/29/24 07/08/24 Mackenzie Roland Agricultural Purchasing Agent 07/09/24 Angela Pozo Agricultural Purchasing Agent 07/09/24 06/12/25 [facility] 06/12/23 Ezekiel Patricia Agricultural Purchasing AgentWooden Barrel Mechanic 06/13/25 documented as of this encounter
--- OUTSIDE RECORDS SUMMARY | 2025-09-05 07:58 | XMS_ITS | Encounter Summary ---
Author Organization [employer] Address [address] [place] [address] Care Team Providers Care Tow Bar Driver Name Role Phone Chato Thomason MD Primary Care Provider [phone] Kelsey Minaya Unavailable Reason for Referral * Consultation (Routine) - Closed Specialty Diagnoses / Procedures Referred By Contac t Referred To Contact Occupational Therapy Diagnoses Lymphedema Chato Thomason MD 505 [place] [address] Phone: tel: fax: [facility] [address] Phone: tel: fax: Referral ID Status Reason Start Date Expiration Date V isits Requested Visits Authorized [id number] Closed Specialty Services Required 07/16/2024 07/16/2025 1 1 Encounter Details Date Type Department Care Team (Late st Contact Info) Description 07/07/2024 Orders Only [facility] CHC MED & PEDS [address] [place], [place] [phone] Chato Thomason MD 505 [place] [address] Anxiety (Primary Dx); Lymphedema Social History Tobacco [...] Upcoming Encounters Date Type Department Care Team ([facility] Contact Info) Description 09/12/2025 1:30 PM EST Telemedicine [facility] CHC MED & PEDS [address] [place] [address] Linda Pelaez, WALT 505 [place] [address] Scheduled Referrals Name Type Priority Associated Diagnoses Order Schedule Referral to Occupational Therapy Outpatient Referral Routine Lymphedema Expected: 07/16/2024 (Approximate), Expires: 07/16/2025 documented as of this encounter Visit Diagnoses Diagnosis Anxiety- Primary Anxiety state, unspecified Lymphedema Other noninfectious lymphedema documented in this encounter Care Teams Tow Bar Driver Relationship Specialty Start Date End Date Chato Thomason MD [address] [place] [address] PCP - General Internal Medicine 10/27/18 Kelsey Minaya Community Health Worker 06/08/2407/07 Eliane Metzger Anchor Tack PullerShingle Inspector 01/29/24 07/08/24 Mackenzie Roland Anchor Tack Puller 07/09/24 Angela Pozo Anchor Tack Puller 07/09/24 06/12/25 [facility] 06/12/23 Ezekiel Patricia Anchor Tack PullerShingle Inspector 06/13/25 documented as of this encounter
--- OUTSIDE RECORDS SUMMARY | 2025-09-05 07:58 | XMS_ITS | Encounter Summary ---
Author Organization [employer] Address 75 [facility] 7 [place] [address] Care Team Providers Care Chairman And Ceo Name Role Phone Chato Thomason MD Primary Care Provider [phone] Reason for Visit * Reason Onset Date Comments Medication Question 09/02/2025 Encounter Details Date Type Department Care Team ([facility] Contact Info) Description 09/02/2025 Telephone [facility] CHC MED & PEDS [address] [place], [place] [phone] Chato Thomason MD 505 [place], [place] [phone] Medication Question Social History Tobacco Use Types [...] * Telephone Encounter - Damion Yo - 09/02/2025 1:33 PM EST Tc from mom reporting that pt had a Televisit with Psychiatrist [facility] program. N. Psychiatrist requested for pt to only use 1mg lorazepam. Any questions contact mom at [phone] Tobacco Curer number documented in this encounter Plan of Treatment Upcoming Encounters Date Type Department Care Team (Late st Contact Info) Description 09/12/2025 1:30 PM EST Telemedicine [facility] MED & PEDS 505 [place] [address] Linda Pelaez, WALT 505 [place] [address] documented as of this encounter Visit Diagnoses Not on filedocumented in this encounter Additional Health Concerns Assessment Noted Time PHQ-9 Depression Total Score: 27 025 11:34 AM EDT documented as of this encounter Care Teams Chairman And Ceo Relationship Specialty Start Date End Date Chato Thomason MD [address] [place] [address] PCP - General Internal Medicine 10/27/18 Mackenzie Roland Director Of Product Management 07/09/24 [facility] 06/12/23 Ezekiel Patricia Director Of Product ManagementConstruction Management Instructor 06/13/25 documented as of this encounter
--- OUTSIDE RECORDS SUMMARY | 2025-09-05 07:58 | XMS_ITS | Encounter Summary ---
Author Organization [employer] Address [address] [facility] 7t [place] [address] Care Team Providers Care Cutter Banana Room Name Role Phone Chato Thomason MD Primary Care Provider [phone] Kelsey Minaya Unavailable Encounter Details Date Type Department Care Team ([facility] st Contact Info) Description 06/25/2024 Orders Only [facility] CHC MED & PEDS [address] [place], [place] [phone] ProviderColleen MD Social History Tobacco Use Types [...] Upcoming Encounters Date Type Department Care Team ([facility] st Contact Info) Description 09/12/2025 1:30 PM EST Telemedicine [facility] MED & PEDS 505 [place] [address] Linda Pelaez RN 505 [place] [address] documented as of this encounter Procedures Procedure [...] on filedocumented in this encounter Care Teams Cutter Banana Room Relationship Specialty Start Date End Date Chato Thomason MD 505 [place] [address] PCP - General Internal Medicine 10/27/18 Kelsey Minaya Community Health Worker 06/08/2407/07 Eliane Metzger Drying Machine Back TenderTransportation Analyst 01/29/24 07/08/24 Mackenzie Roland Drying Machine Back Tender 07/09/24 Angela Pozo Drying Machine Back Tender 07/09/24 06/12/25 [facility] 06/12/23 Ezekiel Patricia Drying Machine Back TenderTransportation Analyst 06/13/25 documented as of this encounter
--- OUTSIDE RECORDS SUMMARY | 2025-09-05 07:58 | XMS_ITS | Encounter Summary ---
Author Organization [employer] Address [address] [facility] 7 [place] [address] Care Team Providers Care Tractor Driver Name Role Phone Chato Thomason MD Primary Care Provider [phone] Reason for Visit * Reason Onset Date Comments pt1 08/12/2025 Encounter Details Date Type Department Care Team ([facility] Contact Info) Description 08/12/2025 Telephone [facility] CHC MED & PEDS [address] [place], [place] [phone] Chato Thomason MD 505 [place], [place] [phone] pt1 Social History Tobacco Use Types Packs/Day [...] * Telephone Encounter - Barney Macdonald - 08/12/2025 8:02 AM EDT Patient calling requesting PT1 Home Address verified: Y/N: Yes Provider name or [place] name: [facility] [address] [facility] [place] [address] Escort needed: Y/N: Yes Do you have a wheelchair: NO If yes- Manual or electric: Visits: 3x Patient calling requesting PT1 Home Address verified: Y/N: Yes Provider name or facility name: [address] [place] [address] Escort needed: Y/N: Yes Do you have a wheelchair: Y/N: No If yes- Manual or electric: Visits: 2x Patient calling requesting PT1 Home Address verified: Y/N: Yes Provider name or facility name: [address] [place] [address] Dr [place] [address] Escort needed: Y/N: Yes Do you have a wheelchair: Y/N: No If yes- Manual or electric: Visits: 2x Patient calling requesting PT1 Home Address verified: Y/N: Yes Provider name or facility name: [address] [place] [address] Escort needed: Y/N: Yes Do you have a wheelchair: Y/N: No If yes- Manual or electric: Visits: 1x a month documented in this encounter Plan of Treatment Upcoming Encounters Date Type Department Care Team ([facility] st Contact Info) Description 09/12/2025 1:30 PM EST Telemedicine [facility] MED & PEDS [address] [place] [address] Linda Pelaez, RN 505 [place] [address] documented as of this encounter Visit Diagnoses Not on filedocumented in this encounter Additional Health Concerns Assessment Noted Time PHQ-9 Depression Total Score: 27 025 11:34 AM EDT documented as of this encounter Care Teams Tractor Driver Relationship Specialty Start Date End Date Chato Thomason MD 505 [place] [address] PCP - General Internal Medicine 10/27/18 Mackenzie Roland Lockmaker 07/09/24 [facility] 06/12/23 Ezekiel Patricia LockmakerSupervisor Printing Shop 06/13/25 documented as of this encounter
--- OUTSIDE RECORDS SUMMARY | 2025-09-05 07:58 | XMS_ITS | Encounter Summary ---
Author Organization [employer] Address [address] [facility] 7 [place] [address] Care Team Providers Care Supervisor Garage Name Role Phone Chato Thomason MD Primary Care Provider [phone] Reason for Visit * Reason Onset Date Comments pt1 01/26/2025 Encounter Details Date Type Department Care Team ([facility] st Contact Info) Description 01/26/2025 Telephone [facility] MEDICINE [address] [place] [address] Chato Thomason MD [address] [place], [place] [phone] pt1 Social History Tobacco Use Types Packs/Day [...] Y/N: Yes Provider name or facility name: [address] [place] [address] Escort needed: Y/N: Yes Do you have a wheelchair: Y/N: No If yes- Manual or electric: n/a Visits: (2x monthly) documented in this encounter Plan of Treatment Upcoming Encounters Date Type Department Care Team (Late st Contact Info) Description 09/12/2025 1:30 PM EST Telemedicine [facility] MED & PEDS 505 [place] [address] Linda Pelaez, WALT 505 [place] [address] documented as of this encounter Visit Diagnoses Not on filedocumented in this encounter Additional Health Concerns Assessment Noted Time PHQ-9 Depression Total Score: 19 024 3:44 PM EDT documented as of this encounter Care Teams Supervisor Garage Relationship Specialty Start Date End Date Chato Thomason MD [address] [place] [address] PCP - General Internal Medicine 10/27/18 Mackenzie Roland Supervisor Inspection Room 07/09/24 Angela Pozo Supervisor Inspection Room 07/09/24 06/12/25 [facility] 06/12/23 Ezekiel Patricia Supervisor Inspection RoomSchool Resource Officer 06/13/25 documented as of this encounter
--- OUTSIDE RECORDS SUMMARY | 2025-09-05 07:58 | XMS_ITS | Encounter Summary ---
Author Organization [employer] Address 75 [facility] 7 [place] [address] Care Team Providers Care Picker / Packer Name Role Phone Chtao Thomason MD Primary Care Provider [phone] Reason for Visit * Reason Onset Date Comments Nurse Triage 08/19/2025 Encounter Details Date Type Department Care Team ([facility] Contact Info) Description 08/19/2025 Telephone [facility] CHC MED & PEDS [address] [place], [place] [phone] Chato Thomason MD 505 [place], [place] [phone] Nurse Triage Social History Tobacco Use Types Packs/Day Years [...] encounter Miscellaneous Notes * Telephone Encounter - Aliya Nelson RN - 08/19/2025 8:55 AM EDT called pt to triage, spoke to mom. mom states pt was told by speech therapist he has thrush, mom requesting treatment. pt has coated white tongue and discomfort. mom states pt will not come in due tolong waits and anxiety. advised PCP may want him seen to diagnose and treat but mom states cannot do that. advised will send PCP task and see what might be possible. nothing available for TC at this t bianca and mom is aware. will have [facility] nurses call back with any recommendations or orders. mom understands and agrees with plan. insurance verified. Protocol Used: Thrush Protocol-Based Disposition: Home Care Positive Triage Question: * White tongue is the only symptom * All higher-acuity triage questions were negative Care Advice Discussed: * Reassurance and Education - White (Milk) Tongue Only * Reasons To Call Back - White patches occur inside the lips or cheeks - You have other questions or concerns * Reassurance and Education - Probable Thrush * Telephone Encounter - Damion Yo - 08/19/2025 8:10 AM EDT Tc from pt mom reporting that pt has a sore mouth and the speech therapist stated he had Trush. Contact mom at [phone] documented in this encounter Plan of Treatment Upcoming Encounters Date Type Department Care Team ([facility] st Contact Info) Description 09/12/2025 1:30 PM EST Telemedicine [facility] MED & PEDS [address] [place] [address] Linda Pelaez, WALT 505 [place] [address] documented as of this encounter Visit Diagnoses Not on filedocumented in this encounter Additional Health Concerns Assessment Noted Time PHQ-9 Depression Total Score: 27 025 11:34 AM EDT documented as of this encounter Care Teams Picker / Packer Relationship Specialty Start Date End Date Chato Thomason MD [address] [place] [address] PCP - General Internal Medicine 10/27/18 Mackenzie Roland Instructor Of Sociology 07/09/24 [facility] 06/12/23 Ezekiel Patricia Instructor Of SociologyTechnical Trainer 06/13/25 documented as of this encounter
--- OUTSIDE RECORDS SUMMARY | 2025-09-05 07:58 | XMS_ITS | Encounter Summary ---
Author Organization [employer] Address [address] [facility] 7 [place] [address] Care Team Providers Care Apparel Manager Name Role Phone Chato Thomason MD Primary Care Provider [phone] Reason for Visit * Reason Onset Date Comments Med Refill 02/02/2025 Encounter Details Date Type Department Care Team (Late st Contact Info) Description 02/02/2025 Telephone [facility] MEDICINE [address] [place] [address] Chato Thomason MD 505 [place], [place] [phone] Med Refill Social History Tobacco Use Types [...] immediate release tablet To be sent to: [facility] [place], [place] - [address] [facility] documented in this encounter Plan of Treatment Upcoming Encounters Date Type Department Care Team ([facility] st Contact Info) Description 09/12/2025 1:30 PM EST Telemedicine [facility] MED & PEDS [address] [place] [address] Linda Pelaez, WALT [address] [place] [address] documented as of this encounter Visit Diagnoses Diagnosis 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) Malignant neoplasm of larynx, unspecified site documented in this encounter Additional Health Concerns Assessment Noted Time PHQ-9 Depression Total Score: 19 024 3:44 PM EDT documented as of this encounter Care Teams Apparel Manager Relationship Specialty Start Date End Date Chato Thomason MD [address] [place] [address] PCP - General Internal Medicine 10/27/18 Mackenzie Roland Network Relations Consultant 07/09/24 Angela Pozo Network Relations Consultant 07/09/24 06/12/25 [facility] 06/12/23 Ezekiel Patricia Network Relations ConsultantDatabase Admin 06/13/25 documented as of this encounter
--- OUTSIDE RECORDS SUMMARY | 2025-09-05 07:58 | XMS_ITS | Encounter Summary ---
Author Organization [employer] Address 75 [facility] 7 [place] [address] Care Team Providers Care It Software Developer Name Role Phone Chato Thomason MD Primary Care Provider [phone] Reason for Visit * Reason Onset Date Comments Call Back Request 05/30/2025 Encounter Details Date Type Department Care Team (Late st Contact Info) Description 05/30/2025 Telephone [facility] MEDICINE [address] [place] [address] Chato Thomason MD [address] [place], [place] [phone] Call Back Request Social History Tobacco Use [...] discuss prior message. Contact pt mom at [phone] * Telephone Encounter - Familia Preston - 05/30/2025 8:38 AM EDT Tc from mom requesting call back stating they received a letter regarding home health aide but mom and pt are unsure on what agency will be providing services. They're also requesting guidance on howthe initial process would work. Please contact mom at [phone]. documented in this encounter Plan of Treatment Upcoming Encounters Date Type Department Care Team ([facility] st Contact Info) Description 09/12/2025 1:30 PM EST Telemedicine [facility] MED & PEDS [address] [place] [address] Linda Pelaez, WALT 505 [place] [address] documented as of this encounter Visit Diagnoses Not on filedocumented in this encounter Additional Health Concerns Assessment Noted Time PHQ-9 Depression Total Score: 19 024 3:44 PM EDT documented as of this encounter Care Teams It Software Developer Relationship Specialty Start Date End Date Chato Thomason MD [address] [place] [address] PCP - General Internal Medicine 10/27/18 Mackenzie Roland Osteopathic Resident 07/09/24 Angela Pozo Osteopathic Resident 07/09/24 06/12/25 [facility] 06/12/23 Ezekiel Patricia Osteopathic ResidentMedical Lab Director 06/13/25 documented as of this encounter
--- OUTSIDE RECORDS SUMMARY | 2025-09-05 07:58 | XMS_ITS | Encounter Summary ---
Author Organization [employer] Address [address] [place] [address] Care Team Providers Care Network Account Manager Name Role Phone Chato Thomason MD Primary Care Provider [phone] Reason for Referral * Consultation (Routine) - Closed Specialty Diagnoses / Procedures Referred By Maryana t Referred To Contact Physical Therapy Diagnoses Lymphatic edema Chato Thomason MD [address] [place] [address] Phone: tel: fax: Referral ID Status Reason Start Date Expiration Date V isits Requested Visits Authorized [id number] Closed Specialty Services Required 03/16/2025 03/16/2026 1 1 * Consultation (Routine) - Closed Specialty Diagnoses / Procedures Referred By Maryana singh Referred To Contact Gastroenterology Diagnoses Epigastric pain Chato Thomason MD [address] [place] [address] Phone: tel: fax: Yomi Hernandes MD [address] [place] [address] Phone: tel: fax: Referral ID Status Reason Start Date Expiration Date V isits Requested Visits Authorized [id number] Closed Specialty Services Required 03/04/2025 03/04/2026 1 1 * Consultation (Routine) - Closed Specialty Diagnoses / Procedures Referred By Maryana singh Referred To Contact Occupational Therapy Diagnoses Lymphatic edema Chato Thomason MD [address] [place] [address] Phone: tel: fax: Referral ID Status Reason Start Date Expiration Date V isits Requested Visits Authorized [id number] Closed Specialty Services Required 03/04/2025 03/04/2026 1 1 Encounter Details Date Type Department Care Team ([facility] st Contact Info) Description 03/04/2025 Orders Only [facility] CH[facility] MED & PEDS [address] [place] [address] Chato Thomason MD [address] [place] [address] Lymphatic edema (Primary Dx); Epigastric pain Social [...] [facility] MED & PEDS [address] [place] [address] Linda Pelaez, RN 505 [place] [address] Scheduled Referrals Name Type Priority Associated Diagnoses [...] documented as of this encounter Care Teams Network Account Manager Relationship Specialty Start Date End Date Chato Thomason MD [address] [place] [address] PCP - General Internal Medicine 10/27/18 Mackenzie Roland Education And Training Manager 07/09/24 Angela Pozo Education And Training Manager 07/09/24 06/12/25 [facility] 06/12/23 Ezekiel Patricia Education And Training ManagerMcat Tutor 06/13/25 documented as of this encounter
--- OUTSIDE RECORDS SUMMARY | 2025-09-05 07:58 | XMS_ITS | Encounter Summary ---
Author Organization [employer] Address 75 [facility] 7t [place] [address] Care Team Providers Care Healthcare Translator Name Role Phone Chato Thomason MD Primary Care Provider [phone] Kelsey Minaya Unavailable Encounter Details Date Type Department Care Team ([facility] st Contact Info) Description 03/01/2024 Orders Only [facility] CHC MED & PEDS [address] [place], [place] [phone] ProviderColleen MD Social History Tobacco Use Types [...] [facility] MED & PEDS 505 [place] [address] Linda Pelaez, WALT 505 [place] [address] documented as of this encounter Procedures Procedure [...] on filedocumented in this encounter Care Teams Healthcare Translator Relationship Specialty Start Date End Date Chato Thomason MD 505 [place] [address] PCP - General Internal Medicine 10/27/18 Kelsey Minaya Community Health Worker 06/08/2407/07 Eliane Metzger Selenium Plant OperatorAudit Clerks Supervisor 01/29/24 07/08/24 Mackenzie Roland Selenium Plant Operator 07/09/24 Angela Pozo Selenium Plant Operator 07/09/24 06/12/25 [facility] 06/12/23 Ezekiel Patricia Selenium Plant OperatorAudit Clerks Supervisor 06/13/25 documented as of this encounter
--- OUTSIDE RECORDS SUMMARY | 2025-09-05 07:58 | XMS_ITS | Encounter Summary ---
Author Organization [employer] Address 75 [facility] 7 [place] [address] Care Team Providers Care Travelers' Aid Worker Name Role Phone Chato Thomason MD Primary Care Provider [phone] Reason for Visit * Reason Onset Date Comments Med Refill 02/15/2025 Encounter Details Date Type Department Care Team (Late st Contact Info) Description 02/15/2025 Telephone [facility] MEDICINE 230 [place] [address] Chato Thomason MD 505 [place], [place] [phone] Med Refill Social History Tobacco Use Types [...] [facility] st Contact Info) Description 09/12/2025 1:30 PM EST Telemedicine [facility] MED & PEDS 505 [facility] [place] [address] Linda Pelaez, WALT 505 [facility] [address] documented as of this encounter Visit Diagnoses Not on filedocumented in this encounter Additional Health Concerns Assessment Noted Time PHQ-9 Depression Total Score: 19 024 3:44 PM EDT documented as of this encounter Care Teams Travelers' Aid Worker Relationship Specialty Start Date End Date Chato Thomason MD [address] [place] [address] PCP - General Internal Medicine 10/27/18 Mackenzie Roland Party Director 07/09/24 Angela Pozo Party Director 07/09/24 06/12/25 [facility] 06/12/23 Ezekiel Patricia Party DirectorBrainer 06/13/25 documented as of this encounter
--- OUTSIDE RECORDS SUMMARY | 2025-09-05 07:58 | XMS_ITS | Encounter Summary ---
Author Organization [employer] Address 75 [facility] 7 [place] [address] Care Team Providers Care Ui Architect Name Role Phone Chato Thomason MD Primary Care Provider [phone] Reason for Visit * Reason Onset Date Comments Med Refill 02/15/2025 Encounter Details Date Type Department Care Team (Late st Contact Info) Description 02/15/2025 Telephone [facility] MEDICINE 230 [place] [address] Chato Thomason MD 505 [place], [place] [phone] Med Refill Social History Tobacco Use Types [...] [facility] st Contact Info) Description 09/12/2025 1:30 PM EST Telemedicine [facility] MED & PEDS [address] [place] [address] Linda Pelaez RN 505 [place] [address] documented as of this encounter Visit Diagnoses Not on filedocumented in this encounter Additional Health Concerns Assessment Noted Time PHQ-9 Depression Total Score: 19 024 3:44 PM EDT documented as of this encounter Care Teams Ui Architect Relationship Specialty Start Date End Date Chato Thomason MD 505 [place] [address] PCP - General Internal Medicine 10/27/18 Mackenzie Roland Instrument Person 07/09/24 Angela Pozo Instrument Person 07/09/24 06/12/25 [facility] 06/12/23 Ezekiel Patricia Instrument PersonManager Sign 06/13/25 documented as of this encounter
--- OUTSIDE RECORDS SUMMARY | 2025-09-05 07:58 | XMS_ITS | Encounter Summary ---
Author Organization [employer] Address 75 [facility] 7t [place] [address] Care Team Providers Care Sales Development Consultant Name Role Phone Chato Thomason MD Primary Care Provider [phone] Encounter Details Date Type Department Care Team (Late st Contact Info) Description 06/03/2025 Orders Only [facility] 230 [place], [place] [phone] ProviderColleen MD Social History Tobacco Use Types [...] Team ([facility] st Contact Info) Description 09/12/2025 1:30 PM EST Telemedicine [facility] MED & PEDS 505 [place] [address] Linda Pelaez, RN 505 [place] [address] documented as of this encounter Procedures Procedure Name Priority Date/Time Associated Diagnosis Comments FL GUIDANCE IN OR Routine 07/01/2025 7:4 6 AM EDT FL MODIFIED BARIUM SWALLOW Routine 06/02/2025 11:09 AM EDT documented in this encounter Results * FL Guidance in OR (07/01/2025 7:46 AM EDT) Anatomical Region Laterality Modality X-Ray Angiograph y 07/01/2025 7:46 AM EDT Narrative 07/01/2025 9:55 AM EDT [address] [address] Fluoroscopy Report Signed Patient: Lawrence Childers MR#: [id number] : 1965 Acct:[id number] Age/Sex: 60 / M ADM Date: 07/01/25 Loc: .[facility] Attending Dr: Moe Luna MD Ordering Physician: Moe Luna MD Date of Service: 07/01/25 Procedure(s): FL guidance in OR Accession Number(s): [id number] cc: Chato Thomason MD; Moe Luna MD [...] Ho MD in OV> 07/01/25 0952 DD/ TD/TT: 07/01/25919 Flat Surfacer Jewel: Procedure Note Donotuseinterpreter, Image - 07/01/2025 [place] [address] Fluoroscopy Report Signed Patient: Lawrence Childers MMR#: [id number] : 1965Acct:[id number] Age/Sex: 60 / MADM Date: 07/01/25 Loc: HO.[facility] Attending Dr: Moe Luna MD Ordering Physician: Moe Luna MD Date of Service: 07/01/25 Procedure(s): FL guidance in OR Accession Number(s): [id number] cc: Chato Thomason MD; Moe Luna MD [...] MD in OV> 07/01/2552 DD/ TD/TT: 07/01/25919 Flat Surfacer Jewel: [facility] External Provider IMG IR PROCEDURES Final [...] as of this encounter Care Teams Sales Development Consultant Relationship Specialty Start Date End Date Chato Thomason MD [address] [place] [address] PCP - General Internal Medicine 10/27/18 Mackenzie Roland County Library Director 07/09/24 Angela Pozo County Library Director 07/09/24 06/12/25 [facility] 06/12/23 Ezekiel Patricia County Library DirectorChip Bin Operator 06/13/25 documented as of this encounter
--- OUTSIDE RECORDS SUMMARY | 2025-09-05 07:58 | XMS_ITS | Encounter Summary ---
Author Organization [employer] Address 75 [facility] 7t [place] [address] Care Team Providers Care Accredited Farm Manager Name Role Phone Chato Thomason MD Primary Care Provider [phone] Encounter Details Date Type Department Care Team ([facility] Contact Info) Description 09/02/2025 Orders Only [facility] CHC MED & PEDS 505 [place], [place] [phone] Chato Thomason MD 505 [place], [place] [phone] Social History Tobacco Use Types Packs/Day Years [...] Description 09/12/2025 1:30 PM EST Telemedicine [facility] MED & PEDS 505 [place] [address] Linda Pelaez, WALT 505 [place] [address] documented as of this encounter Visit Diagnoses Not on filedocumented in this encounter Additional Health Concerns Assessment Noted Time PHQ-9 Depression Total Score: 27 025 11:34 AM EDT documented as of this encounter Care Teams Accredited Farm Manager Relationship Specialty Start Date End Date Chato Thomason MD 505 [place] [address] PCP - General Internal Medicine 10/27/18 Mackenzie Roland [facility] 07/09/24 [facility] 06/12/23 Ezekiel Patricia Cardiology ConsultantsDental Resident 06/13/25 documented as of this encounter
--- OUTSIDE RECORDS SUMMARY | 2025-09-05 07:59 | XMS_ITS | Encounter Summary ---
Author Organization [employer] Address 75 [facility] 7 [place] [address] Care Team Providers Care Seed Mill Superintendent Name Role Phone Chato Thomason MD Primary Care Provider [phone] Reason for Visit * Reason Onset Date Comments Med Refill 02/21/2025 Encounter Details Date Type Department Care Team (Late st Contact Info) Description 02/21/2025 Telephone [facility] MEDICINE 230 [place] [address] Chaot Thomason MD 505 [place], [place] [phone] Med Refill Social History Tobacco Use Types [...] 1 MG tablet To be sent to: [facility] - [place], [place] - [address] [place] [address] documented in this encounter Plan of Treatment Upcoming Encounters Date Type Department Care Team (Late st Contact Info) Description 09/12/2025 1:30 PM EST Telemedicine [facility] CHC MED & PEDS [address] [place] [address] Linda Pelaez, WALT [address] [place] [address] documented as of this encounter Visit Diagnoses Not on filedocumented in this encounter Additional Health Concerns Assessment Noted Time PHQ-9 Depression Total Score: 19 024 3:44 PM EDT documented as of this encounter Care Teams Seed Mill Superintendent Relationship Specialty Start Date End Date Chato Thomason MD [address] [place] [address] PCP - General Internal Medicine 10/27/18 Mackenzie Roland Furnace Reliner 07/09/24 Angela Pozo Furnace Reliner 07/09/24 06/12/25 [facility] 06/12/23 Ezekiel Patricia Furnace RelinerCreosoting Engineer 06/13/25 documented as of this encounter
--- OUTSIDE RECORDS SUMMARY | 2025-09-05 07:59 | XMS_ITS | Encounter Summary ---
Author Organization [employer] Address [address] [place] [address] Care Team Providers Care Cardiovascular Disease Specialist Name Role Phone Chato Thomason MD Primary Care Provider [phone] Reason for Referral * Consultation (Routine) - Closed Specialty Diagnoses / Procedures Referred By Maryana singh Referred To Contact Occupational Therapy Diagnoses Neuropathic pain Physical deconditioning Chato Thomason MD 505 [place] [address] Phone: tel: fax: [facility] Phone: tel: fax: Referral ID Status Reason Start Date Expiration Date V isits Requested Visits Authorized [id number] Closed Specialty Services Required 03/03/2025 03/03/2026 1 1 * Consultation (Routine) - Closed Specialty Diagnoses / Procedures Referred By Contac t Referred To Contact Physical Therapy Diagnoses Neuropathic pain Physical deconditioning Chato Thomason MD 505 [place] [address] Phone: tel: fax: [facility] [address] Phone: tel: fax: Referral ID Status Reason Start Date Expiration Date V isits Requested Visits Authorized [id number] Closed Specialty Services Required 02/21/2025 02/21/2026 20 20 Encounter Details Date Type Department Care Team ([facility] st Contact Info) Description 02/17/2025 Orders Only [facility] CHC MED & PEDS [address] [place] [address] Chato Thomason MD 505 [place] [address] Neuropathic pain (Primary Dx); Physical deconditioning Social [...] Telemedicine [facility] MED & PEDS [address] [place] [address] Linda Pelaez, RN 505 [place] [address] Scheduled Referrals Name Type Priority Associated Diagnoses [...] documented as of this encounter Care Teams Cardiovascular Disease Specialist Relationship Specialty Start Date End Date Chato Thomason MD 505 [place] [address] PCP - General Internal Medicine 10/27/18 Mackenzie Roland Purchasing Internship 07/09/24 Angela Pozo Purchasing Internship 07/09/24 06/12/25 [facility] 06/12/23 Ezekiel Patricia Purchasing InternshipPaper Processing Machine Helper 06/13/25 documented as of this encounter
--- OUTSIDE RECORDS SUMMARY | 2025-09-05 07:59 | XMS_ITS | Encounter Summary ---
Author Organization [employer] Address 75 [facility] 7t [place] [address] Care Team Providers Care Pole Framer Name Role Phone Chato Thomason MD Primary Care Provider [phone] Reason for Visit * Reason Onset Date Comments cx appt medical situation needs new date 025 Encounter Details Date Type Department Care Team ([facility] Contact Info) Description 06/21/2025 Telephone [facility] ADULT DENTAL 505 [place], [place] [phone] Joe Nash, DMD [address] [place], [place] [phone] cx appt medical situation needs new date [...] schedule however I would send message to music executive to update. documented in this encounter Plan of Treatment Upcoming Encounters Date Type Department Care Team (Late st Contact Info) Description 09/12/2025 1:30 PM EST Telemedicine [facility] MED & PEDS 505 [place] [address] Linda Pelaez, RN [address] [place] [address] documented as of this encounter Visit Diagnoses Not on filedocumented in this encounter Additional Health Concerns Assessment Noted Time PHQ-9 Depression Total Score: 19 10/08/2 024 3:44 PM EDT documented as of this encounter Care Teams Pole Framer Relationship Specialty Start Date End Date Chato Thomason MD [address] [place] [address] PCP - General Internal Medicine 10/27/18 Mackenzie Roland Steel Division Supervisor 07/09/24 [facility] 06/12/23 Ezekiel Patricia Steel Division SupervisorCollections Associate 06/13/25 documented as of this encounter
== END ==
LOC: HO.CARD 07:52
PROVIDERS: PCP Internal Medicine; Visit Provider Nurse Practitioner Family
DX: R06.00 Dyspnea, unspecified (principal); R09.02 Hypoxemia
CPT/HCPCS: 93306

== ENCOUNTER → 2025-09-05 07:55 | Outpatient (BNV) | payer MEDICAID, SELFPAY | PROVIDERS: PCP Internal Medicine; Visit Provider Internal Medicine Cardiovascular Disease | DX: I51.7 Cardiomegaly (principal) | CPT/HCPCS: 93306 ==

== ENCOUNTER 2025-09-24 09:14 | Outpatient (REF) | payer MEDICAID, SELFPAY ==
--- NOTE | ~2025-09-24 | CT_ITS ---
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 The visualized thyroid and mediastinum are unremarkable. Tracheostomy in place. No consolidation or effusion. The upper abdomen is notable for a gastrostomy tube, coursing along the edge of the left hepatic lobe, resides partially within the lumen of the stomach ( series 4, image 139). No acute osseous findings. IMPRESSION: No acute intrathoracic findings. Incidentally noted gastrostomy tube partially within the stomach. This document has been electronically signed by: Efe Dan MD on 09/26/2025 13:01:38
--- OUTSIDE RECORDS SUMMARY | 2025-09-24 09:16 | XMS_ITS | Encounter Summary ---
Author Organization [employer] Address 75 [facility] 7 [place] [address] Care Team Providers Care Production Line Solderer Name Role Phone Chato Thomason MD Primary Care Provider [phone] Reason for Visit * Reason Onset Date Comments Appointment Request 07/27/2025 Encounter Details Date Type Department Care Team ([facility] st Contact Info) Description 07/27/2025 Telephone [facility] MEDICINE 230 [place] [address] Chato Thomason MD 505 [place], [place] [phone] Appointment Request Social History Tobacco Use Types [...] out of surgery. Contact pt Mom at [phone] documented in this encounter Plan of Treatment Upcoming Encounters Date Type Department Care Team ([facility] st Contact Info) Description 09/29/2025 9:00 AM EST Telemedicine [facility] MED & PEDS 505 [place] [address] Chato Thomason MD 505 [place] [address] 11/28/2025 2:00 PM EST Telemedicine [facility] MED & PEDS [address] [place] [address] Linda Pelaez, WALT 505 [place] [address] documented as of this encounter Visit Diagnoses Not on filedocumented in this encounter Additional Health Concerns Assessment Noted Time PHQ-9 Depression Total Score: 19 024 3:44 PM EDT documented as of this encounter Care Teams Production Line Solderer Relationship Specialty Start Date End Date Chato Thomason MD [address] [place] [address] PCP - General Internal Medicine 10/27/18 Mackenzie Roland Jigmaker 07/09/24 [facility] 06/12/23 Ezekiel Patricia JigmakerConductor And Engineer 06/13/25 documented as of this encounter
--- OUTSIDE RECORDS SUMMARY | 2025-09-24 09:17 | XMS_ITS | Encounter Summary ---
Author Organization [employer] Address 75 [facility] 7 [place] [address] Care Team Providers Care Pipe Line Maintenance Supervisor Name Role Phone Chato Thomason MD Primary Care Provider [phone] Reason for Visit * Reason Onset Date Comments Med Refill 04/04/2025 Encounter Details Date Type Department Care Team (Late st Contact Info) Description 04/04/2025 Telephone [facility] MEDICINE 230 [place] [address] Chato Thomason MD 505 [place], [place] [phone] Med Refill Social History Tobacco Use Types [...] ([facility] st Contact Info) Description 09/29/2025 9:00 AM EST Telemedicine [facility] MED & PEDS 505 [place] [address] Chato Thomason MD 505 [place] [address] 11/28/2025 2:00 PM EST Telemedicine [facility] MED & PEDS 505 [place] [address] Linda Pelaez RN 505 [place] [address] documented as of this encounter Visit Diagnoses Not on filedocumented in this encounter Additional Health Concerns Assessment Noted Time PHQ-9 Depression Total Score: 19 024 3:44 PM EDT documented as of this encounter Care Teams Pipe Line Maintenance Supervisor Relationship Specialty Start Date End Date Chato Thomason MD [address] [place] [address] PCP - General Internal Medicine 10/27/18 Mackenzie Roland High Rigger 07/09/24 Angela Pozo High Rigger 07/09/24 06/12/25 [facility] 06/12/23 Ezekiel Patricia High RiggerOptical Engineering Manager 06/13/25 documented as of this encounter
--- OUTSIDE RECORDS SUMMARY | 2025-09-24 09:17 | XMS_ITS | Encounter Summary ---
Author Organization [employer] Address 75 [facility] 7t [place] [address] Care Team Providers Care Tread Tuber Machine Operator Name Role Phone Chato Thomason MD Primary Care Provider [phone] Encounter Details Date Type Department Care Team ([facility] Contact Info) Description 09/20/2025 Orders Only [facility] CHC MED & PEDS 505 [place], [place] [phone] Chato Thomason MD 505 [place], [place] [phone] Neuropathic pain Social History Tobacco Use Types [...] Care Team (Late st Contact Info) Description 09/29/2025 9:00 AM EST Telemedicine [facility] MED & PEDS 505 [place] [address] Chato Thomason MD 505 [place] [address] 11/28/2025 2:00 PM EST Telemedicine [facility] MED & PEDS 505 [place] [address] Linda Pelaez, WALT 505 [place] [address] documented as of this encounter Visit Diagnoses Diagnosis Neuropathic pain documented in this encounter Additional Health Concerns Assessment Noted Time PHQ-9 Depression Total Score: 27 025 11:34 AM EDT documented as of this encounter Care Teams Tread Tuber Machine Operator Relationship Specialty Start Date End Date Chato Thomason MD [address] [place] [address] PCP - General Internal Medicine 10/27/18 Mackenzie Roland Senior Health Educator 07/09/24 [facility] 06/12/23 Ezekiel Patricia Senior Health EducatorTexture Artist 06/13/25 documented as of this encounter
--- OUTSIDE RECORDS SUMMARY | 2025-09-24 09:17 | XMS_ITS | Encounter Summary ---
Author Organization [employer] Address 75 [facility] 7 [place] [address] Care Team Providers Care Check Inspector Name Role Phone Chato Thomason MD Primary Care Provider +- [phone] Reason for Visit * Reason Onset Date Comments Referral 08/05/2024 Encounter Details Date Type Department Care Team ([facility] Contact Info) Description 08/05/2024 Telephone [facility] CHC MED & PEDS [address] [place], [place] [phone] Chato Thomason MD 505 [place], [place] [phone] Referral Social History Tobacco Use Types Packs/Day [...] requesting to re new referral to Location: [facility] Address: [address] [place] [address] [place] [address] documented in this encounter Plan of Treatment Upcoming Encounters Date Type Department Care Team (Late st Contact Info) Description 09/29/2025 9:00 AM EST Telemedicine [facility] MED & PEDS [address] [place] [address] Chato Thomason MD [address] [place] [address] 11/28/2025 2:00 PM EST Telemedicine [facility] MED & PEDS [address] [place] [address] Linda Pelaez RN [address] [place] [address] documented as of this encounter Visit Diagnoses Not on filedocumented in this encounter Additional Health Concerns Assessment Noted Time PHQ-9 Depression Total Score: 19 024 3:44 PM EDT documented as of this encounter Care Teams Check Inspector Relationship Specialty Start Date End Date Chato Thomason MD 505 [place] [address] PCP - General Internal Medicine 10/27/18 Mackenzie Roland Ultimate Hoops Scoreboard Operator 07/09/24 Angela Pozo Ultimate Hoops Scoreboard Operator 07/09/24 06/12/25 [facility] 06/12/23 Ezekiel Patricia [employer] Scoreboard OperatorTravel Ticketing Reviewer 06/13/25 documented as of this encounter
--- OUTSIDE RECORDS SUMMARY | 2025-09-24 09:17 | XMS_ITS | Encounter Summary ---
Author Organization [employer] Address 75 [facility] 7 [place] [address] Care Team Providers Care Construction Job Titles Name Role Phone Chato Thomason MD Primary Care Provider [phone] Reason for Visit * Reason Onset Date Comments PT1 12/28/2024 Encounter Details Date Type Department Care Team ([facility] st Contact Info) Description 12/28/2024 Telephone [facility] MEDICINE [address] [place] [address] Chato Thomason MD 505 [place], [place] [phone] PT1 Social History Tobacco Use Types Packs/Day [...] Y/N: Yes Provider name or facility name: [address] [place] [address] [place] [address] - Pain Management Escort needed: Y/N: Yes Do you have a wheelchair: Y/N: No If yes- Manual or electric: N/A Visits: (2x monthly) documented in this encounter Plan of Treatment Upcoming Encounters Date Type Department Care Team (Late st Contact Info) Description 09/29/2025 9:00 AM EST Telemedicine [facility] MED & PEDS 505 [place] [address] Chato Thomason MD 505 [place] [address] 11/28/2025 2:00 PM EST Telemedicine [facility] MED & PEDS 505 [place] [address] Linda Pelaez, WALT [address] [facility] [place] [address] documented as of this encounter Visit Diagnoses Not on filedocumented in this encounter Additional Health Concerns Assessment Noted Time PHQ-9 Depression Total Score: 19 024 3:44 PM EDT documented as of this encounter Care Teams Construction Job Titles Relationship Specialty Start Date End Date Chato Thomason MD 505 [facility] [place] [address] PCP - General Internal Medicine 10/27/18 Mackenzie Roland Wheel Adjuster 07/09/24 Angela Pozo Wheel Adjuster 07/09/24 06/12/25 [facility] 06/12/23 Ezekiel Patricia Wheel AdjusterEngine Setter 06/13/25 documented as of this encounter
--- OUTSIDE RECORDS SUMMARY | 2025-09-24 09:17 | XMS_ITS | Encounter Summary ---
Author Organization [employer] Address 75 [facility] 7 [place] [address] Care Team Providers Care Faculty Criminal Justice Name Role Phone Chato Thomason MD Primary Care Provider [phone] Reason for Visit * Reason Onset Date Comments Med Refill 04/06/2025 Encounter Details Date Type Department Care Team (Late st Contact Info) Description 04/06/2025 Telephone [facility] MEDICINE 230 [place] [address] Chato Thomason MD 505 [place], [place] [phone] Med Refill Social History Tobacco Use Types [...] immediate release tablet To be sent to: [facility] - [address] documented in this encounter Plan of Treatment Upcoming Encounters Date Type Department Care Team ([facility] st Contact Info) Description 09/29/2025 9:00 AM EST Telemedicine [facility] MED & PEDS 505 [place] [address] Chato Thomason MD 505 [place] [address] 11/28/2025 2:00 PM EST Telemedicine [facility] MED & PED[facility] 505 [place] [address] Linda Pelaez RN 505 [place] [address] documented as of this encounter Visit Diagnoses Not on filedocumented in this encounter Additional Health Concerns Assessment Noted Time PHQ-9 Depression Total Score: 19 024 3:44 PM EDT documented as of this encounter Care Teams Faculty Criminal Justice Relationship Specialty Start Date End Date Chato Thomason MD [address] [place] [address] PCP - General Internal Medicine 10/27/18 Mackenzie Roland Heart Specialist 07/09/24 Angela Pozo Heart Specialist 07/09/24 06/12/25 [facility] 06/12/23 Ezekiel Patricia Heart SpecialistSecondary History Teacher 06/13/25 documented as of this encounter
--- OUTSIDE RECORDS SUMMARY | 2025-09-24 09:17 | XMS_ITS | Encounter Summary ---
Author Organization [employer] Address 75 [facility] 7 [place] [address] Care Team Providers Care Shrimping Boat Captain Name Role Phone Chato Thomason MD Primary Care Provider [phone] Reason for Visit * Reason Onset Date Comments Med Refill 09/05/2025 Encounter Details Date Type Department Care Team (Late st Contact Info) Description 09/05/2025 Telephone [facility] MEDICINE 230 [place] [address] Chato Thomason MD 505 [place], [place] [phone] Med Refill Social History Tobacco Use Types [...] encounter Miscellaneous Notes * Telephone Encounter - Manisha Lara - 09/05/2025 9:49 AM EST TC from Mom of pt requesting med refill : oxyCODONE (Roxicodone) 15 MG immediate release tablet PCP DR. Thomason documented in this encounter Plan of Treatment Upcoming Encounters Date Type Department Care Team ([facility] st Contact Info) Description 09/29/2025 9:00 AM EST Telemedicine [facility] MED & PEDS 505 [place] [address] Chato Thomason MD 505 [place] [address] 11/28/2025 2:00 PM EST Telemedicine [facility] MED & PEDS 505 [place] [address] Linda Pelaez RN 505 [place] [address] documented as of this encounter Visit Diagnoses Not on filedocumented in this encounter Additional Health Concerns Assessment Noted Time PHQ-9 Depression Total Score: 27 025 11:34 AM EDT documented as of this encounter Care Teams Shrimping Boat Captain Relationship Specialty Start Date End Date Chato Thomason MD [address] [place] [address] PCP - General Internal Medicine 10/27/18 Mackenzie Roland Spinning Doffer 07/09/24 [facility] 06/12/23 Ezekiel Patricia Spinning DofferRoute Sales Associate 06/13/25 documented as of this encounter
--- OUTSIDE RECORDS SUMMARY | 2025-09-24 09:17 | XMS_ITS | Encounter Summary ---
Author Organization [employer] Address 75 [facility] 7t [place] [address] Care Team Providers Care Solar Photovoltaic Designer Name Role Phone Chato Thomason MD Primary Care Provider [phone] Kelsey Minaya Unavailable Encounter Details Date Type Department Care Team ([facility] st Contact Info) Description 08/13/2023 Orders Only [facility] MED & PEDS [address] [place], [place] [phone] Chato Thomason MD 505 [place], [place] [phone] Spongiotic dermatitis (Primary Dx) Social History Tobacco [...] [facility] st Contact Info) Description 09/29/2025 9:00 AM EST Telemedicine [facility] MED & PEDS [address] [place] [address] Chato Thomason MD 505 [place] [address] 11/28/2025 2:00 PM EST Telemedicine [facility] MED & PEDS [address] [place] [address] Linda Pelaez RN 505 [place] [address] documented as of this encounter Visit Diagnoses Diagnosis Spongiotic dermatitis- Primary Contact dermatitis and other eczema, due to unspecified cause documented in this encounter Care Teams Solar Photovoltaic Designer Relationship Specialty Start Date End Date Chato Thomason MD 505 [place] [address] PCP - General Internal Medicine 10/27/18 Kelsey Minaya Community Health Worker 06/08/2407/07 Eliane Metzger Head School CustodianDowel Sticker Operator 01/29/24 07/08/24 Mackenzie Roland Head School Custodian 07/09/24 Angela Pozo Head School Custodian 07/09/24 06/12/25 [facility] 06/12/23 Ezekiel Patricia Head School CustodianDowel Sticker Operator 06/13/25 documented as of this encounter
--- OUTSIDE RECORDS SUMMARY | 2025-09-24 09:17 | XMS_ITS | Encounter Summary ---
Author Organization [employer] Address 75 [facility] 7 [place] [address] Care Team Providers Care Finger Buff Sewer Name Role Phone Chato Thomason MD Primary Care Provider [phone] Reason for Visit * Reason Onset Date Comments Referral 11/30/2024 Medication Question 11/30/2024 Encounter Details Date Type Department Care Team ([facility] st Contact Info) Description 11/30/2024 Telephone [facility] MEDICINE 230 [place] [address] Chato Thomason MD 505 [place], [place] [phone] Referral; Medication Question Social History Tobacco Use [...] the pt is in. Contact pt at [phone] documented in this encounter Plan of Treatment Upcoming Encounters Date Type Department Care Team ([facility] st Contact Info) Description 09/29/2025 9:00 AM EST Telemedicine [facility] MED & PEDS [address] [place] [address] Chato Thomason MD 505 [place] [address] 11/28/2025 2:00 PM EST Telemedicine [facility] MED & PEDS [address] [place] [address] Linda Pelaez RN 505 [place] [address] documented as of this encounter Visit Diagnoses Not on filedocumented in this encounter Additional Health Concerns Assessment Noted Time PHQ-9 Depression Total Score: 19 024 3:44 PM EDT documented as of this encounter Care Teams Finger Buff Sewer Relationship Specialty Start Date End Date Chato Thomason MD 505 [place] [address] PCP - General Internal Medicine 10/27/18 Mackenzie Roland Endocrinology Physician 07/09/24 Angela Pozo Endocrinology Physician 07/09/24 06/12/25 [facility] 06/12/23 Ezekiel Patricia Endocrinology PhysicianBoiler Washer 06/13/25 documented as of this encounter
--- OUTSIDE RECORDS SUMMARY | 2025-09-24 09:17 | XMS_ITS | Encounter Summary ---
Author Organization [employer] Address 75 [facility] 7t [place] [address] Care Team Providers Care Ostomy Nurse Name Role Phone Chato Thomason MD Primary Care Provider [phone] Encounter Details Date Type Department Care Team ([facility] st Contact Info) Description 07/22/2024 Orders Only [facility] MED & PEDS [address] [place], [place] [phone] Chato Thomason MD 505 [place], [place] [phone] Anxiety Social History Tobacco Use Types Packs/Day [...] EST Telemedicine [facility] MED & PEDS 505 [place] [address] Chato Thomason MD 505 [place] [address] 11/28/2025 2:00 PM EST Telemedicine [facility] MED & PEDS 505 [place] [address] Linda Pelaez RN 505 [place] [address] documented as of this encounter Visit Diagnoses Diagnosis Anxiety Anxiety state, unspecified documented in this encounter Care Teams Ostomy Nurse Relationship Specialty Start Date End Date Chato Thomason MD 505 [place] [address] PCP - General Internal Medicine 10/27/18 Mackenzie Roland Cigar Packer And Shader 07/09/24 Angela Pozo Cigar Packer And Shader 07/09/24 06/12/25 [facility] 06/12/23 Ezekiel Patricia Cigar Packer And ShaderFur Dry Cleaner Hand 06/13/25 documented as of this encounter
--- OUTSIDE RECORDS SUMMARY | 2025-09-24 09:17 | XMS_ITS | Encounter Summary ---
Author Organization [employer] Address [address] [place] [address] Care Team Providers Care Enlisted Aircrew/Aerial Observer/Gunner Name Role Phone Chato Thomason MD Primary Care Provider [phone] Reason for Referral * Consultation (Routine) - Closed Specialty Diagnoses / Procedures Referred By Maryana singh Referred To Contact Ophthalmology Diagnoses Primary hypertension Chato Thomason MD 505 [place] [address] Phone: tel: fax: [facility] [address] [place] [address] Phone: tel:[phone] fax: Referral ID Status Reason Start Date Expiration Date V isits Requested Visits Authorized [id number] Closed Specialty Services Required 10/01/2024 10/01/2025 1 1 * Consultation (Urgent) - Closed Specialty Diagnoses / Procedures Referred By Maryana singh Referred To Contact Pharmacy Diagnoses Spongiotic dermatitis Chronic bronchitis, unspecified chronic bronchitis type (CMS/HCC) (HCC) Hypercholesterolemia Primary hypertension Chato Thomason MD 505 [place] [address] Phone: tel: fax: Referral ID Status Reason Start Date Expiration Date V isits Requested Visits Authorized [id number] Closed Continuity of Care 10/01/2024 10/01/2025 6 6 Encounter Details Date Type Department Care Team (Late st Contact Info) Description 10/01/2024 Orders Only [facility] CH[facility] MED & PEDS 505 [place] [address] Chato Thomason MD 505 [place] [address] Spongiotic dermatitis (Primary Dx); Chronic bronchitis, unspecified [...] Upcoming Encounters Date Type Department Care Team ([facility] Contact Info) Description 09/29/2025 9:00 AM EST Telemedicine [facility] MED & PEDS 505 [place] [address] Chato Thomason MD 505 [place] [address] 11/28/2025 2:00 PM EST Telemedicine [facility] MED & PEDS 505 [place] [address] Linda Pelaez RN 505 [place] [address] Scheduled Referrals Name Type Priority Associated Diagnoses [...] documented as of this encounter Care Teams Enlisted Aircrew/Aerial Observer/Gunner Relationship Specialty Start Date End Date Chato Thomason MD 505 [place] [address] PCP - General Internal Medicine 10/27/18 Mackenzie Roland Pastry Baker 9/13/24 Angela Sánchez Pastry Baker 07/09/24 06/12/25 [facility] 06/12/23 Ezekiel Patricia Pastry BakerNarcotics Detective 06/13/25 documented as of this encounter
--- OUTSIDE RECORDS SUMMARY | 2025-09-24 09:17 | XMS_ITS | Encounter Summary ---
Author Organization [employer] Address 75 [facility] 7t [place] [address] Care Team Providers Care Electronic Prepress Operator Name Role Phone Chato Thomason MD Primary Care Provider [phone] Kelsey Minaya Unavailable Encounter Details Date Type Department Care Team (Late st Contact Info) Description 11/05/2023 Abstract [facility] MEDICINE 230 [place] [address] Chato Thoamson MD 505 [place], [place] [phone] Social History Tobacco Use Types Packs/Day Years [...] Info) Description 09/29/2025 9:00 AM EST Telemedicine [facility] MED & PEDS 505 [place] [address] Chato Thomason MD 505 [place] [address] 11/28/2025 2:00 PM EST Telemedicine [facility] MED & PEDS 505 [place] [address] Linda Pelaez, WALT 505 [place] [address] documented as of this encounter Visit Diagnoses Not on filedocumented in this encounter Care Teams Electronic Prepress Operator Relationship Specialty Start Date End Date Chato Thomason MD 505 [place] [address] PCP - General Internal Medicine 10/27/18 Kelsey Minaya Community Health Worker 06/08/2407/07 Eliane Metzger Automatic Spreader OperatorCity Bailiff 01/29/24 07/08/24 Mackenzie Roland Automatic Spreader Operator 07/09/24 Angela Pozo Automatic Spreader Operator 07/09/24 06/12/25 [facility] 06/12/23 Ezekiel Patricia Automatic Spreader OperatorCity Bailiff 06/13/25 documented as of this encounter
--- OUTSIDE RECORDS SUMMARY | 2025-09-24 09:17 | XMS_ITS | Encounter Summary ---
Author Organization [employer] Address [address] [place] [address] Care Team Providers Care Rehab Aid Name Role Phone Chato Thomason MD Primary Care Provider [phone] Kelsey Minaya Unavailable Encounter Details Date Type Department Care Team (Late st Contact Info) Description 12/04/2022 Abstract [facility] MEDICINE [address] [place] [address] Chato Thomason MD 505 [place] [address] Social History Tobacco Use Types Packs/Day Years [...] Info) Description 09/29/2025 9:00 AM EST Telemedicine [facility] CHC MED & PEDS 505 [place] [address] Chato Thomason MD 505 [place] [address] 11/28/2025 2:00 PM EST Telemedicine [facility] MED & PEDS [address] [place] [address] Linda Pelaez, RN 505 [place] [address] documented as of this encounter Visit Diagnoses Not on filedocumented in this encounter Care Teams Rehab Aid Relationship Specialty Start Date End Date Chato Thomason MD 505 [place] [address] PCP - General Internal Medicine 10/27/18 Kelsey Minaya Community Health Worker 06/08/2407/07 Eliane Metzger Payroll OfficerEngine Lathe Tender 01/29/24 07/08/24 Mackenzie Roland Payroll Officer 07/09/24 Angela Pozo Payroll Officer 07/09/24 06/12/25 [facility] 06/12/23 Ezekiel Patricia Payroll OfficerEngine Lathe Tender 06/13/25 documented as of this encounter
--- OUTSIDE RECORDS SUMMARY | 2025-09-24 09:17 | XMS_ITS | Encounter Summary ---
Author Organization [employer] Address [address] [place] [address] Care Team Providers Care Wildland Firefighter Name Role Phone Chato Thomason MD Primary Care Provider [phone] Kelsey Minaya Unavailable Encounter Details Date Type Department Care Team (Late st Contact Info) Description 12/04/2022 Abstract [facility] MEDICINE 230 [place] [address] Chato Thomason MD 505 [place] [address] Social History Tobacco Use Types Packs/Day Years [...] Info) Description 09/29/2025 9:00 AM EST Telemedicine [facility] MED & PEDS 505 [place] [address] Chato Thomason MD 505 [place] [address] 11/28/2025 2:00 PM EST Telemedicine [facility] MED & PEDS 505 [place] [address] Linda Pelaez, RN 505 [place] [address] documented as of this encounter Visit Diagnoses Not on filedocumented in this encounter Care Teams Wildland Firefighter Relationship Specialty Start Date End Date Chato Thomason MD 505 [place] [address] PCP - General Internal Medicine 10/27/18 Kelsey Minaya Community Health Worker 06/08/2407/07 Eliane Metzger Retail Account SpecialistSupervisor Glycerin 01/29/24 07/08/24 Mackenzie Roland Retail Account Specialist 07/09/24 Angela Pozo Retail Account Specialist 07/09/24 06/12/25 [facility] 06/12/23 Ezekiel Patricia Retail Account SpecialistSupervisor Glycerin 06/13/25 documented as of this encounter
--- OUTSIDE RECORDS SUMMARY | 2025-09-24 09:17 | XMS_ITS | Encounter Summary ---
Author Organization [email or web address] Address 75 [facility] 7 [place] [address] Care Team Providers Care Sql Database Developer Name Role Phone Chato Thomason MD Primary Care Provider [phone] Reason for Visit * Reason Onset Date Comments Call Back Request 07/26/2024 Encounter Details Date Type Department Care Team ([facility] st Contact Info) Description 07/26/2024 Telephone [facility] MEDICINE 230 [place] [address] Chato Thomason MD 505 [place], [place] [phone] Call Back Request Social History Tobacco Use [...] with N requesting status on referral for [facility] stating it was discussedduring last visit. Please contact Mackenzie at [phone]. documented in this encounter Plan of Treatment Upcoming Encounters Date Type Department Care Team (Late st Contact Info) Description 09/29/2025 9:00 AM EST Telemedicine [facility] MED & PEDS 505 [place] [address] Chato Thomason MD 505 [place] [address] 11/28/2025 2:00 PM EST Telemedicine [facility] MED & PEDS 505 [place] [address] Linda Pelaez, WALT 505 [place] [address] documented as of this encounter Visit Diagnoses Not on filedocumented in this encounter Care Teams Sql Database Developer Relationship Specialty Start Date End Date Chato Thomason MD 505 [place] [address] PCP - General Internal Medicine 10/27/18 Mackenzie Roland Control Room Operator 07/09/24 Angela Pozo Control Room Operator 07/09/24 06/12/25 [facility] 06/12/23 Ezekiel Patricia Control Room OperatorLedge Man 06/13/25 documented as of this encounter
--- OUTSIDE RECORDS SUMMARY | 2025-09-24 09:17 | XMS_ITS | Encounter Summary ---
Author Organization [employer] Address 75 [facility] 7 [place] [address] Care Team Providers Care Controls Engineer Name Role Phone Chato Thomason MD Primary Care Provider [phone] Reason for Visit * Reason Onset Date Comments Med Refill 03/14/2025 Encounter Details Date Type Department Care Team (Late st Contact Info) Description 03/14/2025 Telephone [facility] MEDICINE 230 [place] [address] Chato Thomason MD 505 [place], [place] [phone] Med Refill Social History Tobacco Use Types [...] immediate release tablet To be sent to: [facility] - [address] documented in this encounter Plan of Treatment Upcoming Encounters Date Type Department Care Team ([facility] st Contact Info) Description 09/29/2025 9:00 AM EST Telemedicine [facility] MED & PEDS [address] [place] [address] Chato Thomason MD [address] [place] [address] 11/28/2025 2:00 PM EST Telemedicine [facility] MED & PEDS [address] [place] [address] Linda Pelaez RN 505 [place] [address] documented as of this encounter Visit Diagnoses Not on filedocumented in this encounter Additional Health Concerns Assessment Noted Time PHQ-9 Depression Total Score: 19 024 3:44 PM EDT documented as of this encounter Care Teams Controls Engineer Relationship Specialty Start Date End Date Chato Thomason MD 505 [place] [address] PCP - General Internal Medicine 10/27/18 Mackenzie Roland Brick Washer 07/09/24 Angela Pozo Brick Washer 07/09/24 06/12/25 [facility] 06/12/23 Ezekiel Patricia Brick WasherBarber Shop Manager 06/13/25 documented as of this encounter
--- OUTSIDE RECORDS SUMMARY | 2025-09-24 09:17 | XMS_ITS | Encounter Summary ---
Author Organization [employer] Address 75 [facility] 7t [place] [address] Care Team Providers Care Postdoctoral Research Fellow Name Role Phone Chato Thomason MD Primary Care Provider [phone] Encounter Details Date Type Department Care Team ([facility] Contact Info) Description 05/11/2025 Orders Only [facility] CH[facility] MED & PEDS [address] [place], [place] [phone] Chato Thomason MD [address] [place], [place] [phone] Social History Tobacco Use Types Packs/Day Years [...] Info) Description 09/29/2025 9:00 AM EST Telemedicine [facility] MED & PEDS 505 [place] [address] Chato Thomason MD [address] [place] [address] 11/28/2025 2:00 PM EST Telemedicine [facility] MED & PEDS [address] [place] [address] Linda Pelaez RN 505 [place] [address] documented as of this encounter Visit Diagnoses Not on filedocumented in this encounter Additional Health Concerns Assessment Noted Time PHQ-9 Depression Total Score: 19 024 3:44 PM EDT documented as of this encounter Care Teams Postdoctoral Research Fellow Relationship Specialty Start Date End Date Chato Thomason MD [address] [place] [address] PCP - General Internal Medicine 10/27/18 Mackenzie Roland Dishing Machine Operator 07/09/24 Angela Pozo Dishing Machine Operator 07/09/24 06/12/25 [facility] 06/12/23 Ezekiel Patricia Dishing Machine OperatorCreative Art Director 06/13/25 documented as of this encounter
--- OUTSIDE RECORDS SUMMARY | 2025-09-24 09:17 | XMS_ITS | Encounter Summary ---
Author Organization [employer] Address 75 [facility] 7 [place] [address] Care Team Providers Care Roof Panel Hanger Name Role Phone Chato Thomason MD Primary Care Provider [phone] Reason for Visit * Reason Onset Date Comments Nurse Triage 09/20/2025 Encounter Details Date Type Department Care Team ([facility] st Contact Info) Description 09/20/2025 Telephone [facility] MEDICINE [address] [place] [address] Chato Thomason MD [address] [place] [address] Nurse Triage Social History Tobacco Use Types [...] Telephone Encounter - Aliya Nelson RN - 09/21/2025 10:16 AM EST Called pt/parent regarding medication concern, spoke to Mom. Advised PCP has sent script for the Gabapentin to the pharmacy. Mom understands and was told by the pharmacy that they currently have no Gabapentin until Friday. Mom states has non Gabapentin left and can use until Friday. * Telephone Encounter - Aliya Nelson RN - 09/20/2025 2:01 PM EST Called pt to triage, spoke to mom. Mom states gradually since pt changed from Gabapentin to Lyrica he has been having increased difficulty breathing. Pt saw pulmonology recently and was given an O2 compressor which helps some. Pt thinks the Lyrica is causing the sob and wants to go back to the Gabapentin. Mom also states the Lyrica is not effective anyway. Mom asking how the Lyrica should be tapered and advised cannot give that recommendation. Will task to PCP for any recommendations. Pt has TCappointment on 09/29. * Telephone Encounter - Manisha Lara - 09/20/2025 1:46 PM EST Symptom: Breathing Trouble Outcome: Talk to a nurse or provider within 15 minutes Reason: Trouble breathing through the mouth The caller accepted this outcome. Pregabalin causing symptoms PCP DR. Thomason documented in this encounter Plan of Treatment Upcoming Encounters Date Type Department Care Team (Late st Contact Info) Description 09/29/2025 9:00 AM EST Telemedicine [facility] P[facility] [address] [place] [address] Chato Thomason MD [address] [place] [address] 11/28/2025 2:00 PM EST Telemedicine [facility] [address] [place] [address] Linda Pelaez RN 505 [place] [address] documented as of this encounter Visit Diagnoses Not on filedocumented in this encounter Additional Health Concerns Assessment Noted Time PHQ-9 Depression Total Score: 27 025 11:34 AM EDT documented as of this encounter Care Teams Roof Panel Hanger Relationship Specialty Start Date End Date Chato Thomason MD [address] [place] [address] PCP - General Internal Medicine 10/27/18 Mackenzie Roland Walking Dragline Oiler 07/09/24 [facility] 06/12/23 Ezekiel Patricia Walking Dragline OilerStator Winder 06/13/25 documented as of this encounter
--- OUTSIDE RECORDS SUMMARY | 2025-09-24 09:17 | XMS_ITS | Encounter Summary ---
Author Organization [email or web address] Address 75 [facility] 7t [place] [address] Care Team Providers Care Combo Welder Name Role Phone Chato Thomason MD Primary Care Provider [phone] Encounter Details Date Type Department Care Team ([facility] Contact Info) Description 04/25/2025 Orders Only [facility] MED & PEDS [address] [place], [place] [phone] Chato Thomason MD [address] [place], [place] [phone] Anxiety Social History Tobacco Use Types Packs/Day [...] 09/29/2025 9:00 AM EST Telemedicine [facility] MED [facility] PED[facility] [address] [place] [address] Chato Thomason MD [address] [place] [address] 11/28/2025 2:00 PM EST Telemedicine [facility] MED [facility] [address] [place] [address] Linda Pelaez RN 505 [place] [address] documented as of this encounter Visit Diagnoses Diagnosis Anxiety Anxiety state, unspecified documented in this encounter Additional Health Concerns Assessment Noted Time PHQ-9 Depression Total Score: 19 024 3:44 PM EDT documented as of this encounter Care Teams Combo Welder Relationship Specialty Start Date End Date Chato Thomason MD [address] [place] [address] PCP - General Internal Medicine 10/27/18 Mackenzie Roland Nurses' Aide 07/09/24 Angela Pozo Nurses' Aide 07/09/24 06/12/25 [facility] 06/12/23 Ezekiel Patricia Nurses' AideElectronics Engineer 06/13/25 documented as of this encounter
--- OUTSIDE RECORDS SUMMARY | 2025-09-24 09:17 | XMS_ITS | Clinical Summary ---
Author Organization [facility] Address [address] [place] [address] Phone Care Team Providers Care Bander And Cellophaner Helper Machine Name Role Phone Physician, No Pcp Primary Care Provider Unavaila ble Active Problems Problem Noted Date Diagnosed Date Lymphatic edema 09/30/2024 Encounters Date Type Department Care Team Description 09/01/2025 1:00 PM EST Treatment [facility] [address] [place] [address] [phone] Nilam Botello P, OTR/L Lymphatic edema (Primary Dx) 08/18/2025 10:00 AM EDT [facility] [address] [place] [address] [phone] Luisana Barnard, DINKER Dysphagia, pharyngeal phase (Primary Dx); History of laryngectomy 08/18/2025 Plan of Care Documentation [facility] [address] [place] [address] [phone] 08/16/2025 1:30 PM EDT Treatment [facility] [address] [place] [address] [phone] Nilam Botello P, OTR/L Lymphedema of face (Primary Dx) 08/10/2025 2:30 PM EDT Treatment [facility] [address] [place] [address] [phone] Nilam Botello P, OTR/L Lymphedema of face (Primary Dx) 08/02/2025 1:30 PM EDT Treatment [facility] Occupational Therapy [address] [phone] Nilam Botello, OTR/L Lymphedema of face (Primary Dx) 08/02/2025 Plan of Care Documentation [facility] Occupational Therapy [address] [phone] 07/11/2025 1:30 PM EDT Treatment [facility] Occupational Therapy [address] [phone] Nilam Botello, OTR/L Lymphatic edema (Primary Dx) [...] topic Insurance MEDICAID - [place] Care Teams Bander And Cellophaner Helper Machine Relationship Specialty Start Date End Date Physician, No Pcp PCP - General 09/22/24
--- OUTSIDE RECORDS SUMMARY | 2025-09-24 09:17 | XMS_ITS | Encounter Summary ---
Author Organization [employer] Address 75 [facility] 7t [place] [address] Care Team Providers Care Client Solutions Director Name Role Phone Chato Thomason MD Primary Care Provider [phone] Encounter Details Date Type Department Care Team ([facility] Contact Info) Description 03/24/2025 Orders Only [facility] CH[facility] MED & PEDS [address] [place], [place] [phone] Chato Thomason MD [address] [place], [place] [phone] Neuropathic pain Social History Tobacco Use Types [...] 09/29/2025 9:00 AM EST Telemedicine [facility] MED & PEDS [address] [place] [address] Chato Thomason MD [address] [place] [address] 11/28/2025 2:00 PM EST Telemedicine [facility] MED & PEDS [address] [place] [address] Linda Pelaez RN 505 [place] [address] documented as of this encounter Visit Diagnoses Diagnosis Neuropathic pain documented in this encounter Additional Health Concerns Assessment Noted Time PHQ-9 Depression Total Score: 19 024 3:44 PM EDT documented as of this encounter Care Teams Client Solutions Director Relationship Specialty Start Date End Date Chato Thomason MD [address] [place] [address] PCP - General Internal Medicine 10/27/18 Mackenzie Roland Distilling Department Supervisor 07/09/24 Angela Pozo Distilling Department Supervisor 07/09/24 06/12/25 [facility] 06/12/23 Ezekiel Patricia Distilling Department SupervisorHot Mill Roller 06/13/25 documented as of this encounter
--- OUTSIDE RECORDS SUMMARY | 2025-09-24 09:17 | XMS_ITS | Encounter Summary ---
Author Organization [employer] Address 75 [facility] 7 [place] [address] Care Team Providers Care Print Graphic Designer Name Role Phone Chato Thomason MD Primary Care Provider [phone] Reason for Visit * Reason Onset Date Comments Med Refill 04/18/2025 Encounter Details Date Type Department Care Team (Late st Contact Info) Description 04/18/2025 Telephone [facility] [address] [place] [address] Chato Thomason MD 505 [place], [place] [phone] Med Refill Social History Tobacco Use Types [...] immediate release tablet To be sent to: [facility] - [address] documented in this encounter Plan of Treatment Upcoming Encounters Date Type Department Care Team ([facility] st Contact Info) Description 09/29/2025 9:00 AM EST Telemedicine [facility] [address] [place] [address] Chato Thomason MD 505 [place] [address] 11/28/2025 2:00 PM EST Telemedicine [facility] [address] [place] [address] Linda Pelaez RN 505 [place] [address] documented as of this encounter Visit Diagnoses Not on filedocumented in this encounter Additional Health Concerns Assessment Noted Time PHQ-9 Depression Total Score: 19 024 3:44 PM EDT documented as of this encounter Care Teams Print Graphic Designer Relationship Specialty Start Date End Date Chato Thomason MD 505 [place] [address] PCP - General Internal Medicine 10/27/18 Mackenzie Roland Editor Map 07/09/24 Angela Pozo Editor Map 07/09/24 06/12/25 [facility] 06/12/23 Ezekiel Patricia Editor MapKey Person 06/13/25 documented as of this encounter
--- OUTSIDE RECORDS SUMMARY | 2025-09-24 09:17 | XMS_ITS | Encounter Summary ---
Author Organization [employer] Address 75 [facility] 7 [place] [address] Care Team Providers Care Cupola Tender Name Role Phone Chato Thomason MD Primary Care Provider [phone] Reason for Visit * Reason Onset Date Comments Durable Medical Equipment 09/21/2025 Encounter Details Date Type Department Care Team ([facility] st Contact Info) Description 09/21/2025 Telephone [facility] MEDICINE [address] [place] [address] Chato Thomason MD [address] [place], [place] [phone] Durable Medical Equipment Social History Tobacco Use [...] Telephone Encounter - Elsie Block LPN - 09/21/2025 1:49 PM EST Call was return prescription was sent to [facility] Tc from Ezekiel with [employer] [facility] requesting a call back to verify where the script of the wheel chair was sent to. Please contact Ezekiel at [phone]. Ezekiel also provided moms number: [phone] * Telephone Encounter - Familia Preston - 09/21/2025 1:29 PM EST Tc from Ezekiel with [employer] requesting a call back to verify where the script of the wheel chair was sent to. Please contact Ezekiel at [phone]. Ezekiel also provided moms number: [phone] documented in this encounter Plan of Treatment Upcoming Encounters Date Type Department Care Team (Late st Contact Info) Description 09/29/2025 9:00 AM EST Telemedicine [facility] [address] [place] [address] Chato Thomason MD [address] [place] [address] 11/28/2025 2:00 PM EST Telemedicine [facility] MED [facility] PEDS [address] [place] [address] Linda Pelaez, WALT [address] [place] [address] documented as of this encounter Visit Diagnoses Not on filedocumented in this encounter Additional Health Concerns Assessment Noted Time PHQ-9 Depression Total Score: 27 025 11:34 AM EDT documented as of this encounter Care Teams Cupola Tender Relationship Specialty Start Date End Date Chato Thomason MD [address] [place] [address] PCP - General Internal Medicine 10/27/18 Mackenzie Roland Crystal Grinder 07/09/24 [facility] 06/12/23 Ezekiel Patricia Crystal GrinderCoin Box Inspector 06/13/25 documented as of this encounter
--- OUTSIDE RECORDS SUMMARY | 2025-09-24 09:17 | XMS_ITS | Encounter Summary ---
Author Organization [employer] Address 75 [facility] 7 [place] [address] Care Team Providers Care Head Start Assistant Teacher Name Role Phone Chato Thomason MD Primary Care Provider [phone] Kelsey Minaya Unavailable Reason for Visit * Reason Onset Date Comments Referral 03/27/2023 Encounter Details Date Type Department Care Team ([facility] st Contact Info) Description 03/27/2023 Telephone [facility] MEDICINE [address] [place] [address] Chato Thomason MD [address] [place], [place] [phone] Referral Social History Tobacco Use Types Packs/Day [...] - 03/27/2023 2:43 PM EDT Tc from [facility] requesting a referral. Date: 03/31/2023 Time: 10:15 AM Location: [address] [place] [address] Specialty: [facility] Hematology Oncology NPI Facility: [id number] Department: [id number] DX: Squamous cell Carcinoma of Epiglottis Phone #: [phone] Fax #: [phone] documented in this encounter Plan of Treatment Upcoming Encounters Date Type Department Care Team ([facility] st Contact Info) Description 09/29/2025 9:00 AM EST Telemedicine [facility] MED & PEDS [address] [place] [address] Chato Thomason MD [address] [place] [address] 11/28/2025 2:00 PM EST Telemedicine [facility] MED & PEDS [address] [place] [address] Linda Pelaez RN [address] [place] [address] documented as of this encounter Visit Diagnoses Not on filedocumented in this encounter Care Teams Head Start Assistant Teacher Relationship Specialty Start Date End Date Chato Thomason MD [address] [place] [address] PCP - General Internal Medicine 10/27/18 Kelsey Minaya Community Health Worker 06/08/2407/07 Eliane Metzger Pie Crimping Machine OperatorCorporate Webmaster 01/29/24 07/08/24 Mackenzie Roland Pie Crimping Machine Operator 07/09/24 Angela Pozo Pie Crimping Machine Operator 07/09/24 06/12/25 [facility] 06/12/23 Ezekiel Patricia Pie Crimping Machine OperatorCorporate Webmaster 06/13/25 documented as of this encounter
--- OUTSIDE RECORDS SUMMARY | 2025-09-24 09:17 | XMS_ITS | Encounter Summary ---
Author Organization [employer] Address [address] [place] [address] [address] [address] Care Team Providers Care Sales Market Leader Name Role Phone Chato Thomason MD Primary Care Provider [phone] Kelsey Minaya Unavailable Reason for Visit * Reason Onset Date Comments VNA Orders 07/28/2023 Encounter Details Date Type Department Care Team ([facility] Contact Info) Description 07/28/2023 Telephone [facility] MED & PEDS [address] [place], [place] [phone] Chato Thomason MD [address] [place], [place] [phone] VNA Orders Social History Tobacco Use Types [...] - 07/28/2023 3:40 PM EDT Tc from [facility] requesting two VNA orders for: Face to Face Encounter Dated on 06/11/2023 (Please fax over office notes) Physician order Dated on 06/11/2023 [place] states that orders have a 30 day time frame. Please fax over at [phone] Please If any questions please contact Anabela at [phone] documented in this encounter Plan of Treatment Upcoming Encounters Date Type Department Care Team ([facility] st Contact Info) Description 09/29/2025 9:00 AM EST Telemedicine [facility] MED & PEDS [address] [place] [address] Chato Thomason MD [address] [place] [address] 11/28/2025 2:00 PM EST Telemedicine [facility] MED & PEDS [address] [place] [address] Linda Pelaez RN 505 [place] [address] documented as of this encounter Visit Diagnoses Not on filedocumented in this encounter Care Teams Sales Market Leader Relationship Specialty Start Date End Date Chato Thomason MD [address] [place] [address] PCP - General Internal Medicine 10/27/18 Kelsey Minaya Community Health Worker 06/08/2407/07 Eliane Metzger Retail Support SpecialistScreenplay Writer 01/29/24 07/08/24 Mackenzie Roland Retail Support Specialist 07/09/24 Angela Pozo Retail Support Specialist 07/09/24 06/12/25 [facility] 06/12/23 Ezekiel Patricia Retail Support SpecialistScreenplay Writer 06/13/25 documented as of this encounter
--- OUTSIDE RECORDS SUMMARY | 2025-09-24 09:17 | XMS_ITS | Encounter Summary ---
Author Organization [employer] Address 75 [facility] 7 [place] [address] Care Team Providers Care County Surveyor Name Role Phone Chato Thomason MD Primary Care Provider [phone] Reason for Visit * Reason Onset Date Comments Medication Question 04/01/2025 Encounter Details Date Type Department Care Team ([facility] Contact Info) Description 04/01/2025 Telephone [facility] MED & PEDS [address] [place], [place] [phone] Chato Thomason MD [address] [place], [place] [phone] Medication Question Social History Tobacco Use Types [...] affecting pt mood. 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) Malignant neoplasm of larynx, unspecified site Anxiety Anxiety state, unspecified documented in this encounter Additional Health Concerns Assessment Noted Time PHQ-9 Depression Total Score: 19 024 3:44 PM EDT documented as of this encounter Care Teams County Surveyor Relationship Specialty Start Date End Date Chato Thomason MD [address] [place] [address] PCP - General Internal Medicine 10/27/18 Mackenzie Roland Oracle Application Consultant 07/09/24 Angela Pozo Oracle Application Consultant 07/09/24 06/12/25 [facility] 06/12/23 Ezekiel Patricia Oracle Application ConsultantCoremaking Supervisor 06/13/25 documented as of this encounter
--- OUTSIDE RECORDS SUMMARY | 2025-09-24 09:17 | XMS_ITS | Encounter Summary ---
Author Organization [employer] Address 75 [facility] 7t [place] [address] Care Team Providers Care Staff Nurse Anesthetist Name Role Phone Chato Thomason MD Primary Care Provider [phone] Encounter Details Date Type Department Care Team ([facility] Contact Info) Description 12/02/2024 Orders Only [facility] CHC MED & PEDS [address] [place], [place] [phone] Chato Thomason MD [address] [place], [place] [phone] Neuropathic pain Social History Tobacco Use Types [...] Description 09/29/2025 9:00 AM EST Telemedicine [facility] MED & PEDS 505 [place] [address] Chato Thomason MD [address] [place] [address] 11/28/2025 2:00 PM EST Telemedicine [facility] & PEDS 505 [place] [address] Linda Pelaez RN 505 [place] [address] documented as of this encounter Visit Diagnoses Diagnosis Neuropathic pain documented in this encounter Additional Health Concerns Assessment Noted Time PHQ-9 Depression Total Score: 19 024 3:44 PM EDT documented as of this encounter Care Teams Staff Nurse Anesthetist Relationship Specialty Start Date End Date Chato Thomason MD [address] [place] [address] PCP - General Internal Medicine 10/27/18 Mackenzie Roland Store Operations Associate 07/09/24 Angela Pozo Store Operations Associate 07/09/24 06/12/25 [facility] 06/12/23 Ezekiel Patricia Store Operations AssociateAutomatic Clipper And Stripper 06/13/25 documented as of this encounter
--- OUTSIDE RECORDS SUMMARY | 2025-09-24 09:17 | XMS_ITS | Encounter Summary ---
Author Organization [employer] Address 75 [facility] 7t [place] [address] Care Team Providers Care [place] Stayer Machine Operator Name Role Phone Chato Thomason MD Primary Care Provider [phone] Encounter Details Date Type Department Care Team ([facility] st Contact Info) Description 10/04/2024 Orders Only [facility] CHC MED & PEDS [address] [place], [place] [phone] Provider, MD Colleen Social History Tobacco Use [...] Team ([facility] st Contact Info) Description 09/29/2025 9:00 AM EST Telemedicine [facility] MED & PEDS 505 [place] [address] Chato Thomason MD [address] [place] [address] 11/28/2025 2:00 PM EST Telemedicine [facility] MED & PEDS 505 [place] [address] Linda Pelaez RN [address] [place] [address] documented as of this encounter Procedures Procedure [...] documented as of this encounter Care Teams [place] Stayer Machine Operator Relationship Specialty Start Date End Date Chato Thomason MD [address] [place] [address] PCP - General Internal Medicine 10/27/18 Mackenzie Roland Double End Tenoner Operator 07/09/24 Angela Pozo Double End Tenoner Operator 07/09/24 06/12/25 [facility] 06/12/23 Ezekiel Patricia Double End Tenoner OperatorMixing Machine Tender Cork Rod 06/13/25 documented as of this encounter
--- OUTSIDE RECORDS SUMMARY | 2025-09-24 09:17 | XMS_ITS | Encounter Summary ---
Author Organization [employer] Address [address] [place] [address] Care Team Providers Care Community Facilitator Name Role Phone Chato Thomason MD Primary Care Provider [phone] Reason for Visit * Reason Onset Date Comments Med Refill 09/20/2025 Encounter Details Date Type Department Care Team ([facility] st Contact Info) Description 09/20/2025 Refill [facility] MED & PEDS [address] [place], [place] [phone] Chato Thomason MD [address] [place] [address] History of laryngectomy; Long-term current use of opiate analgesic Social History Tobacco Use Types Packs/Day Years [...] * Telephone Encounter - Barney Macdonald - 09/20/2025 8:13 AM EST TC from pt requesting medication refill. Medications needing refill : oxyCODONE (Roxicodone) 5 MG/5ML solution [facility] be sent to: [facility] documented in this encounter Plan of Treatment Upcoming Encounters Date Type Department Care Team ([facility] st Contact Info) Description 09/29/2025 9:00 AM EST Telemedicine [facility] MED & PEDS [address] [place] [address] Chato Thomason MD [address] [place] [address] 11/28/2025 2:00 PM EST Telemedicine [facility] MED & PEDS [address] [place] [address] Linda Pelaez RN [address] [place] [address] documented as of this encounter Visit Diagnoses Diagnosis History of laryngectomy Other postprocedural status Long-term current use of opiate analgesic Encounter for long-term (current) use of other medications documented in this encounter Additional Health Concerns Assessment Noted Time PHQ-9 Depression Total Score: 27 025 11:34 AM EDT documented as of this encounter Care Teams Community Facilitator Relationship Specialty Start Date End Date Chato Thomason MD 505 [place] [address] PCP - General Internal Medicine 10/27/18 Mackenzie Roland Economics Lecturer 07/09/24 [facility] 06/12/23 Ezekiel Patricia Economics LecturerMedical Director 06/13/25 documented as of this encounter
--- OUTSIDE RECORDS SUMMARY | 2025-09-24 09:17 | XMS_ITS | Encounter Summary ---
Author Organization [employer] Address [address] [facility] 7 [place] [address] Care Team Providers Care Semaphore Operator Name Role Phone Chato Thomason MD Primary Care Provider [phone] Kelsey Minaya Unavailable Encounter Details Date Type Department Care Team (Late st Contact Info) Description 08/28/2023 Abstract [facility] MEDICINE [address] [place] [address] Chato Thomason MD [address] [place], [place] [phone] Social History Tobacco Use Types Packs/Day Years [...] [facility] [address] [place] [address] Chato Thomason MD [address] [place] [address] 11/28/2025 2:00 PM EST Telemedicine [facility] MED & PEDS [address] [place] [address] Linda Pelaez, WALT 505 [place] [address] documented as of this encounter Procedures Procedure [...] on filedocumented in this encounter Care Teams Semaphore Operator Relationship Specialty Start Date End Date Chato Thomason MD [address] [place] [address] PCP - General Internal Medicine 10/27/18 Kelsey Minaya Community Health Worker 06/08/2407/07 Eliane Metzger Service Delivery ManagerMilk Tester 01/29/24 07/08/24 Mackenzie Roland Service Delivery Manager 07/09/24 Angela Pozo Service Delivery Manager 07/09/24 06/12/25 [facility] 06/12/23 Ezekiel Patricia Service Delivery ManagerMilk Tester 06/13/25 documented as of this encounter
--- OUTSIDE RECORDS SUMMARY | 2025-09-24 09:17 | XMS_ITS | Encounter Summary ---
Author Organization [employer] Address [address] [facility] 7t [place] [address] Care Team Providers Care Physician Relations Manager Name Role Phone Chato Thomason MD Primary Care Provider [phone] Reason for Visit * Reason Comments Med Refill Encounter Details Date Type Department Care Team ([facility] st Contact Info) Description 04/25/2025 Refill [facility] MEDICINE [address] [place], [place] [phone] Chato Thomason MD [address] [place] [address] Anxiety Social History Tobacco Use Types Packs/Day [...] Info) Description 09/29/2025 9:00 AM EST Telemedicine [facility] MED & PEDS 505 [place] [address] Chato Thomason MD [address] [place] [address] 11/28/2025 2:00 PM EST Telemedicine [facility] MED & PEDS [address] [place] [address] Linda Pelaez, WALT [address] [place] [address] documented as of this encounter Visit Diagnoses Diagnosis Anxiety Anxiety state, unspecified documented in this encounter Additional Health Concerns Assessment Noted Time PHQ-9 Depression Total Score: 19 024 3:44 PM EDT documented as of this encounter Care Teams Physician Relations Manager Relationship Specialty Start Date End Date Chato Thomason MD [address] [place] [address] PCP - General Internal Medicine 10/27/18 Mackenzie Roland Manager Philosophy 07/09/24 Angela Pozo Manager Philosophy 07/09/24 06/12/25 [facility] 06/12/23 Ezekiel Patricia Manager PhilosophySenior Regulatory Affairs Specialist 06/13/25 documented as of this encounter
--- OUTSIDE RECORDS SUMMARY | 2025-09-24 09:17 | XMS_ITS | Encounter Summary ---
Author Organization [employer] Address [address] [place] [address] [address], [place] [address] Care Team Providers Care Appointment Coordinator Name Role Phone Chato Thomason MD Primary Care Provider [phone] Kelsey Minaya Unavailable Encounter Details Date Type Department Care Team (Late st Contact Info) Description 07/03/2023 Orders Only [facility] MED & PEDS [address] [place] [address] Lucia Elmore LPN Social History Tobacco Use [...] Department Care Team (Late Contact Info) Description 09/29/2025 9:00 AM EST Telemedicine [facility] MED & PEDS [address] [place] [address] Chato Thomason MD 505 [place] [address] 11/28/2025 2:00 PM EST Telemedicine [facility] MED & PEDS [address] [place] [address] Linda Pelaez RN 505 [place] [address] documented as of this encounter Visit Diagnoses Not on filedocumented in this encounter Care Teams Appointment Coordinator Relationship Specialty Start Date End Date Chato Thomason MD [address] [facility] [place] [address] PCP - General Internal Medicine 10/27/18 Kelsey Minaya Community Health Worker 06/08/2407/07 Eliane Metzger Retail Key HolderSpecial Education Supervisor 01/29/24 07/08/24 Mackenzie Roland Retail Key Holder 07/09/24 Angela Pozo Retail Key Holder 07/09/24 06/12/25 [facility] 06/12/23 Ezekiel Patricia Retail Key HolderSpecial Education Supervisor 06/13/25 documented as of this encounter
--- OUTSIDE RECORDS SUMMARY | 2025-09-24 09:17 | XMS_ITS | Encounter Summary ---
Author Organization [employer] Address [address] [facility] 7 [place] [address] Care Team Providers Care Ssrs Report Developer Name Role Phone Chato Thomason MD Primary Care Provider [phone] Reason for Visit * Reason Comments Med Refill Encounter Details Date Type Department Care Team ([facility] Contact Info) Description 11/30/2024 Refill [facility] MED & PEDS [address] [place], [place] [phone] Chato Thomason MD [address] [place], [place] [phone] Other insomnia; Anxiety; Anxiety; Squamous cell carcinoma [...] [facility] [address] [place] [address] Chato Thomason MD 505 [place] [address] 11/28/2025 2:00 PM EST Telemedicine [facility] MED & PEDS [address] [place] [address] Linda Pelaez, RN [address] [place] [address] documented as of this encounter Visit Diagnoses Diagnosis Other insomnia Anxiety Anxiety state, unspecified 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) Malignant neoplasm of larynx, unspecified site documented in this encounter Additional Health Concerns Assessment Noted Time PHQ-9 Depression Total Score: 19 024 3:44 PM EDT documented as of this encounter Care Teams Ssrs Report Developer Relationship Specialty Start Date End Date Chato Thomason MD [address] [place] [address] PCP - General Internal Medicine 10/27/18 Mackenzie Roland Care Team Assistant 07/09/24 Angela Pozo Care Team Assistant 07/09/24 06/12/25 [facility] 06/12/23 Ezekiel Patricia Care Team AssistantBasketballs And Footballs Reverser 06/13/25 documented as of this encounter
--- OUTSIDE RECORDS SUMMARY | 2025-09-24 09:17 | XMS_ITS | Encounter Summary ---
Author Organization [employer] Address [address] [facility] 7t [place] [address] Care Team Providers Care Sawsmith Name Role Phone Chato Thomason MD Primary Care Provider [phone] Reason for Referral * Consultation (Routine) - Closed Specialty Diagnoses / Procedures Referred By Contto singh Referred To Contact Dermatology Diagnoses Spongiotic dermatitis Chato Thomason MD [address] [place] [address] Phone: tel: fax: Gail Srinivasan [address] [place] [address] Phone: tel: fax: Referral ID Status Reason Start Date Expiration Date V isits Requested Visits Authorized [id number] Closed Specialty Services Required 08/25/2024 08/25/2025 1 1 Encounter Details Date Type Department Care Team ([facility] st Contact Info) Description 08/24/2024 Orders Only [facility] MED & PEDS [address] [place], [place] [phone] Chato Thomason MD [address] [place] [phone] Spongiotic dermatitis (Primary Dx) Social History Tobacco [...] 09/29/2025 9:00 AM EST Telemedicine [facility] MED & PEDS [address] [place] [address] Chato Thomason MD 505 [place] [address] 11/28/2025 2:00 PM EST Telemedicine [facility] MED & PEDS 505 [place] [address] Linda Pelaez RN 505 [place] [address] Scheduled Referrals Name Type Priority Associated Diagnoses [...] documented as of this encounter Care Teams Sawsmith Relationship Specialty Start Date End Date Chato Thomason MD [address] [place] [address] PCP - General Internal Medicine 10/27/18 Mackenzie Roland Soda Clerk 07/09/24 Angela Pozo Soda Clerk 07/09/24 06/12/25 [facility] 06/12/23 Ezekiel Patricia Soda ClerkFurnace Checker 06/13/25 documented as of this encounter
--- OUTSIDE RECORDS SUMMARY | 2025-09-24 09:17 | XMS_ITS | Encounter Summary ---
Author Organization [employer] Address [address] [facility] 7 [place] [address] Care Team Providers Care Guest Services Director Name Role Phone Chato Thomason MD Primary Care Provider [phone]- [phone] Reason for Visit * Reason Comments Med Refill Encounter Details Date Type Department Care Team ([facility] Contact Info) Description 08/31/2024 Refill [facility] MED & PEDS [address] [place], [place] [phone] Chato Thomason MD [address] [place], [place] [phone] Squamous cell carcinoma of larynx (CMS/HCC) (Primary [...] [facility] MED & PEDS [address] [place] [address] Chato Thomason MD [address] [place] [address] 11/28/2025 2:00 PM EST Telemedicine [facility] MED & PEDS [address] [place] [address] Linda Pelaez RN 505 [place] [address] documented as of this encounter Visit Diagnoses Diagnosis 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 neoplasm of larynx, unspecified site Other insomnia Anxiety Anxiety state, unspecified History of laryngectomy Other postprocedural status documented in this encounter Additional Health Concerns Assessment Noted Time PHQ-9 Depression Total Score: 19 024 3:44 PM EDT documented as of this encounter Care Teams Guest Services Director Relationship Specialty Start Date End Date Chato Thomason MD [address] [place] [address] PCP - General Internal Medicine 10/27/18 Mackenzie Roland Cylinder Machine Operator 07/09/24 Angela Pozo Cylinder Machine Operator 07/09/24 06/12/25 [facility] 06/12/23 Ezekiel Patricia Cylinder Machine OperatorAsset Management Coordinator 06/13/25 documented as of this encounter
--- OUTSIDE RECORDS SUMMARY | 2025-09-24 09:17 | XMS_ITS | Encounter Summary ---
Author Organization [employer] Address [address] [facility] 7 [place] [address] Care Team Providers Care Consumer Loan Processor Name Role Phone Chato Thomason MD Primary Care Provider [phone] Reason for Visit * Reason Onset Date Comments Med Refill 01/10/2025 Encounter Details Date Type Department Care Team (Late st Contact Info) Description 01/10/2025 Telephone [facility] MEDICINE [address] [place] [address] Chato Thomason MD [address] [place], [place] [phone] Med Refill Social History Tobacco Use Types [...] immediate release tablet To be sent to: [facility] - [address] documented in this encounter Plan of Treatment Upcoming Encounters Date Type Department Care Team ([facility] st Contact Info) Description 09/29/2025 9:00 AM EST Telemedicine [facility] MED & PEDS [address] [place] [address] Chato Thomason MD [address] [place] [address] 11/28/2025 2:00 PM EST Telemedicine [facility] MED & PEDS [address] [place] [address] Linda Pelaez RN 505 [place] [address] documented as of this encounter Visit Diagnoses Not on filedocumented in this encounter Additional Health Concerns Assessment Noted Time PHQ-9 Depression Total Score: 19 024 3:44 PM EDT documented as of this encounter Care Teams Consumer Loan Processor Relationship Specialty Start Date End Date Chato Thomason MD [address] [place] [address] PCP - General Internal Medicine 10/27/18 Mackenzie Roland Sample Maker Original 07/09/24 Angela Pozo Sample Maker Original 07/09/24 06/12/25 [facility] 06/12/23 Ezekiel Patricia Sample Maker OriginalTare Worker 06/13/25 documented as of this encounter
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
--- OUTSIDE RECORDS SUMMARY | 2025-09-24 09:17 | XMS_ITS | Encounter Summary ---
Author Organization [employer] Address [address] [facility] [address] [place] [address] Care Team Providers Care Bridge Crane Operator Name Role Phone Chato Thomason MD Primary Care Provider [phone] Reason for Visit * Reason Onset Date Comments Order 03/14/2025 Encounter Details Date Type Department Care Team ([facility] st Contact Info) Description 03/14/2025 Telephone [facility] [address] [place] [address] Chato Thomason MD [address] [place], [place] [phone] Order Social History Tobacco Use Types Packs/Day [...] Tc from Stan with outpatient rehab in [facility] in regards neuropathic pain order stating it would need to be changed to lymphedema order due to the being 2 different diagnoses. Stan requested order be put Attention to Stan If any questions you can contact Stan at [phone]. documented in this encounter Plan of Treatment Upcoming Encounters Date Type Department Care Team ([facility] st Contact Info) Description 09/29/2025 9:00 AM EST Telemedicine [facility] [address] [place] [address] Chato Thomason MD [address] [place] [address] 11/28/2025 2:00 PM EST Telemedicine [facility] [address] [place] [address] Linda Pelaez RN [address] [place] [address] documented as of this encounter Visit Diagnoses Not on filedocumented in this encounter Additional Health Concerns Assessment Noted Time PHQ-9 Depression Total Score: 19 024 3:44 PM EDT documented as of this encounter Care Teams Bridge Crane Operator Relationship Specialty Start Date End Date Chato Thomason MD [address] [place] [address] PCP - General Internal Medicine 10/27/18 Mackenzie Roland Furnace Charger 07/09/24 Angela Pozo Furnace Charger 07/09/24 06/12/25 [facility] 06/12/23 Ezekiel Patricia Furnace ChargerLead Trainer 06/13/25 documented as of this encounter
--- OUTSIDE RECORDS SUMMARY | 2025-09-24 09:17 | XMS_ITS | Encounter Summary ---
Author Organization [employer] Address 75 [facility] 7 [place] [address] Care Team Providers Care Registered Private Duty Nurse Name Role Phone Chato Thomason MD Primary Care Provider [phone] Reason for Visit * Reason Onset Date Comments Med Refill 11/30/2024 Encounter Details Date Type Department Care Team (Late st Contact Info) Description 11/30/2024 Telephone [facility] MEDICINE [address] [place] [address] Chato Thomason MD [address] [place], [place] [phone] Med Refill Social History Tobacco Use Types [...] 50 MG tablet To be sent to: [facility] - [place], [place] - [address] [place] [address] documented in this encounter Plan of Treatment Upcoming Encounters Date Type Department Care Team ([facility] st Contact Info) Description 09/29/2025 9:00 AM EST Telemedicine [facility] MED & PEDS [address] [place] [address] Chato Thomason MD [address] [place] [address] 11/28/2025 2:00 PM EST Telemedicine [facility] MED & PEDS [address] [place] [address] Linda Pelaez RN 505 [place] [address] documented as of this encounter Visit Diagnoses Not on filedocumented in this encounter Additional Health Concerns Assessment Noted Time PHQ-9 Depression Total Score: 19 024 3:44 PM EDT documented as of this encounter Care Teams Registered Private Duty Nurse Relationship Specialty Start Date End Date Chato Thomason MD 505 [place] [address] PCP - General Internal Medicine 10/27/18 Mackenzie Roland Wig Comber 07/09/24 Angela Pozo Wig Comber 07/09/24 06/12/25 [facility] 06/12/23 Ezekiel Patricia Wig ComberTank Maker Wood 06/13/25 documented as of this encounter
--- OUTSIDE RECORDS SUMMARY | 2025-09-24 09:17 | XMS_ITS | Encounter Summary ---
Author Organization [employer] Address 75 [facility] 7 [place] [address] Care Team Providers Care Senior Research Fellow Name Role Phone Chato Thomason MD Primary Care Provider +1- [phone] Reason for Visit * Reason Onset Date Comments Med Refill 09/13/2024 Encounter Details Date Type Department Care Team ([facility] st Contact Info) Description 09/13/2024 Telephone [facility] MEDICINE [address] [place] [address] Chato Thomason MD [address] [place], [place] [phone] Med Refill Social History Tobacco Use Types [...] immediate release tablet To be sent to: [id number] [place], [place] - [address] [address] AT [facility] documented in this encounter Plan of Treatment Upcoming Encounters Date Type Department Care Team ([facility] Contact Info) Description 09/29/2025 9:00 AM EST Telemedicine [facility] MED & PEDS [address] [place] [address] Chato Thomason MD [address] [place] [address] 11/28/2025 2:00 PM EST Telemedicine [facility] MED & PEDS [address] [place] [address] Linda Pelaez RN 505 [place] [address] documented as of this encounter Visit Diagnoses Not on filedocumented in this encounter Additional Health Concerns Assessment Noted Time PHQ-9 Depression Total Score: 19 024 3:44 PM EDT documented as of this encounter Care Teams Senior Research Fellow Relationship Specialty Start Date End Date Chato Thomason MD [address] [place] [address] PCP - General Internal Medicine 10/27/18 Mackenzie Roland Home Care Associate 07/09/24 Angela Pozo Home Care Associate 07/09/24 06/12/25 [facility] 06/12/23 Ezekiel Patricia Home Care AssociateCafe Worker 06/13/25 documented as of this encounter
--- OUTSIDE RECORDS SUMMARY | 2025-09-24 09:17 | XMS_ITS | Encounter Summary ---
Author Organization [employer] Address 75 [facility] 7t [place] [address] Care Team Providers Care Cook Chef Name Role Phone Chato Thomaosn MD Primary Care Provider [phone] Encounter Details Date Type Department Care Team ([facility] st Contact Info) Description 08/05/2024 Orders Only [facility] MED & PEDS [address] [place], [place] [phone] Provider, MD Colleen Social History Tobacco Use [...] Info) Description 09/29/2025 9:00 AM EST Telemedicine [facility] MED & PEDS [address] [place] [address] Chato Thomason MD 505 [place] [address] 11/28/2025 2:00 PM EST Telemedicine [facility] MED & PEDS [address] [place] [address] Linda Pelaez RN 505 [place] [address] documented as of this encounter Procedures Procedure [...] documented as of this encounter Care Teams Cook Chef Relationship Specialty Start Date End Date Chato Thomason MD 505 [place] [address] PCP - General Internal Medicine 10/27/18 Mackenzie Roland Low Voltage Technician 07/09/24 Angela Pozo Low Voltage Technician 07/09/24 06/12/25 [facility] 06/12/23 Ezekiel Patricia Low Voltage TechnicianMandarin Speaking Nanny 06/13/25 documented as of this encounter
--- OUTSIDE RECORDS SUMMARY | 2025-09-24 09:18 | XMS_ITS | Encounter Summary ---
Author Organization [employer] Address 75 [facility] 7 [place] [address] Care Team Providers Care Insurance Agent Name Role Phone Chato Thomason MD Primary Care Provider [phone] Reason for Visit * Reason Onset Date Comments Nurse Triage 08/19/2025 Encounter Details Date Type Department Care Team ([facility] Contact Info) Description 08/19/2025 Telephone [facility] MED & PEDS [address] [place], [place] [phone] Chato Thomason MD [address] [place], [place] [phone] Nurse Triage Social History Tobacco Use Types [...] stated he had Trush. Contact mom at [phone] documented in this encounter Plan of Treatment Upcoming Encounters Date Type Department Care Team (Late st Contact Info) Description 09/29/2025 9:00 AM EST Telemedicine [facility] MED & PEDS [address] [place] [address] Chato Thomason MD [address] [place] [address] 11/28/2025 2:00 PM EST Telemedicine [facility] MED & PEDS [address] [place] [address] Linda Pelaez RN 505 [place] [address] documented as of this encounter Visit Diagnoses Not on filedocumented in this encounter Additional Health Concerns Assessment Noted Time PHQ-9 Depression Total Score: 27 025 11:34 AM EDT documented as of this encounter Care Teams Insurance Agent Relationship Specialty Start Date End Date Chato Thomason MD [address] [place] [address] PCP - General Internal Medicine 10/27/18 Mackenzie Roland Block Splitter Operator 07/09/24 [facility] 06/12/23 Ezekiel Patricia Block Splitter OperatorSap Basis Consultant 06/13/25 documented as of this encounter
--- OUTSIDE RECORDS SUMMARY | 2025-09-24 09:18 | XMS_ITS | Encounter Summary ---
Author Organization [employer] Address 75 [facility] 7t [place] [address] Care Team Providers Care Furniture Sprayer Name Role Phone Chato Thomason MD Primary Care Provider +1- [phone] Kelsey Minaya Unavailable Encounter Details Date Type Department Care Team ([facility] st Contact Info) Description 03/19/2024 Orders Only [facility] MED & PEDS [address] [place], [place] [phone] ProviderColleen MD Social History Tobacco Use Types [...] Description 09/29/2025 9:00 AM EST Telemedicine [facility]ED[facility] [address] [place] [address] Chato Thomason MD [address] [place] [address] 11/28/2025 2:00 PM EST Telemedicine [facility] MED [facility]EDS [address] [place] [address] Linda Pelaez RN 505 [place] [address] documented as of this encounter Procedures Procedure Name Priority Date/Time Associated Diagnosis Comments SURGICAL PATHOLOGY Routine 03/15/2024 9:13 AM EDT documented in this encounter Results * Surgical Pathology (03/15/2024 9:13 AM EDT) Historical Provider LAB PATHOLOGY ORDERABLES Final Result documented in this encounter Visit Diagnoses Not on filedocumented in this encounter Care Teams Furniture Sprayer Relationship Specialty Start Date End Date Chato Thomason MD [address] [place] [address] PCP - General Internal Medicine 10/27/18 Kelsey Minaya Community Health Worker 06/08/2407/07 Eliane Metzger Safety Glass InstallerIntegrated Circuit Design Engineer 01/29/24 07/08/24 Mackenzie Roland Safety Glass Installer 07/09/24 Angela Pozo Safety Glass Installer 07/09/24 06/12/25 [facility] 06/12/23 Ezekiel Patricia Safety Glass InstallerIntegrated Circuit Design Engineer 06/13/25 documented as of this encounter
--- OUTSIDE RECORDS SUMMARY | 2025-09-24 09:18 | XMS_ITS | Encounter Summary ---
Author Organization [employer] Address 75 [facility] 7t [place] [address] Care Team Providers Care Repair Service Clerk Name Role Phone Chato Thomason MD Primary Care Provider [phone] Encounter Details Date Type Department Care Team ([facility] Contact Info) Description 08/17/2025 Orders Only [facility] MED & PEDS [address] [place], [place] [phone] Chato Thomason MD [address] [place], [place] [phone] Neuropathic pain (Primary Dx); Thrush, oral; Epigastric [...] [facility] [address] [place] [address] Chato Thomason MD 505 [place] [address] 11/28/2025 2:00 PM EST Telemedicine [facility] MED & PEDS [address] [place] [address] Linda Pelaez, WALT 505 [place] [address] documented as of this encounter Visit Diagnoses Diagnosis Neuropathic pain- Primary Thrush, oral Epigastric pain Abdominal pain, epigastric documented in this encounter Additional Health Concerns Assessment Noted Time PHQ-9 Depression Total Score: 27 025 11:34 AM EDT documented as of this encounter Care Teams Repair Service Clerk Relationship Specialty Start Date End Date Chato Thomason MD [address] [place] [address] PCP - General Internal Medicine 10/27/18 Mackenzie Roland Library Helper 07/09/24 [facility] 06/12/23 Ezekiel Patricia Library HelperChief Human Resources Officer 06/13/25 documented as of this encounter
--- OUTSIDE RECORDS SUMMARY | 2025-09-24 09:18 | XMS_ITS | Encounter Summary ---
Author Organization [employer] Address 75 [facility] 7t [place] [address] Care Team Providers Care Cribbing Setter Name Role Phone Chato Thomason MD Primary Care Provider [phone] Kelsey Minaya Unavailable Encounter Details Date Type Department Care Team ([facility] st Contact Info) Description 06/24/2024 Orders Only [facility] MED & PEDS [address] [place], [place] [phone] ProviderColleen MD Social History Tobacco Use Types [...] Description 09/29/2025 9:00 AM EST Telemedicine [facility] MED & PEDS [address] [place] [address] Chato Thomason MD 505 [place] [address] 11/28/2025 2:00 PM EST Telemedicine [facility] MED & PEDS [address] [place] [address] Linda Pelaez RN 505 [place] [address] documented as of this encounter Procedures Procedure [...] on filedocumented in this encounter Care Teams Cribbing Setter Relationship Specialty Start Date End Date Chato Thomason MD 505 [place] [address] PCP - General Internal Medicine 10/27/18 Kelsey Minaya Community Health Worker 06/08/2407/07 Eliane Metzger Sling OperatorFinancial Services Associate 01/29/24 07/08/24 Mackenzie Roland Sling Operator 07/09/24 Angela Pozo Sling Operator 07/09/24 06/12/25 [facility] 06/12/23 Ezekiel Patricia Sling OperatorFinancial Services Associate 06/13/25 documented as of this encounter
--- OUTSIDE RECORDS SUMMARY | 2025-09-24 09:18 | XMS_ITS | Encounter Summary ---
Author Organization [employer] Address 75 [facility] 7 [place] [address] Care Team Providers Care Aerial Gunner Superintendent Name Role Phone Chato Thomason MD Primary Care Provider [phone] Reason for Visit * Reason Onset Date Comments Med Refill 02/15/2025 Encounter Details Date Type Department Care Team (Late st Contact Info) Description 02/15/2025 Telephone [facility] MEDICINE [address] [place] [address] Chato Thomason MD [address] [place], [place] [phone] Med Refill Social History Tobacco Use Types [...] Info) Description 09/29/2025 9:00 AM EST Telemedicine [facility] MED & PEDS [address] [place] [address] Chato Thomason MD 505 [place] [address] 11/28/2025 2:00 PM EST Telemedicine [facility] MED & PEDS [address] [place] [address] Linda Pelaez RN 505 [place] [address] documented as of this encounter Visit Diagnoses Not on filedocumented in this encounter Additional Health Concerns Assessment Noted Time PHQ-9 Depression Total Score: 19 024 3:44 PM EDT documented as of this encounter Care Teams Aerial Gunner Superintendent Relationship Specialty Start Date End Date Chato Thomason MD [address] [place] [address] PCP - General Internal Medicine 10/27/18 Mackenzie Roland Green Feed Attendant 07/09/24 Angela Pozo Green Feed Attendant 07/09/24 06/12/25 [facility] 06/12/23 Ezekiel Patricia Green Feed AttendantAmphibian Crewmember 06/13/25 documented as of this encounter
--- OUTSIDE RECORDS SUMMARY | 2025-09-24 09:18 | XMS_ITS | Encounter Summary ---
Author Organization [employer] Address 75 [facility] 7t [place] [address] Care Team Providers Care Woven Label Designer Name Role Phone Chato Thomason MD Primary Care Provider +1- [phone] Kelsey Minaya Unavailable Reason for Visit * Reason Onset Date Comments Paperwork/Forms 02/02/2024 Encounter Details Date Type Department Care Team ([facility] st Contact Info) Description 02/02/2024 Telephone [facility] MEDICINE [address] [place] [address] Chato Thomason MD [address] [place], [place] [phone] Paperwork/Forms Social History Tobacco Use Types Packs/Day [...] - 02/02/2024 10:48 AM EDT Tc from [place] [facility] requesting status of the Transfer Summary that was faxed over on 12/01 the order number is [id number] needs to be completed and signed by the provider as soon as possible and to be faxed to [phone] documented in this encounter Plan of Treatment Upcoming Encounters Date Type Department Care Team (Late st Contact Info) Description 09/29/2025 9:00 AM EST Telemedicine [facility] MED & PEDS [address] [place] [address] Chato Thomason MD 505 [place] [address] 11/28/2025 2:00 PM EST Telemedicine [facility] MED & PEDS [address] [place] [address] Linda Pelaez RN 505 [place] [address] documented as of this encounter Visit Diagnoses Not on filedocumented in this encounter Care Teams Woven Label Designer Relationship Specialty Start Date End Date Chato Thomason MD [address] [place] [address] PCP - General Internal Medicine 10/27/18 Kelsey Minaya Community Health Worker 06/08/2407/07 Eliane Metzger Hasher OperatorBench Lay Out Technician 01/29/24 07/08/24 Mackenzie Roland Hasher Operator 07/09/24 Angela Pozo Hasher Operator 07/09/24 06/12/25 [facility] 06/12/23 Ezekiel Patricia Hasher OperatorBench Lay Out Technician 06/13/25 documented as of this encounter
--- OUTSIDE RECORDS SUMMARY | 2025-09-24 09:18 | XMS_ITS | Encounter Summary ---
Author Organization [employer] Address 75 [facility] 7t [place] [address] Care Team Providers Care Maintenance Planner Name Role Phone Chato Thomason MD Primary Care Provider +1- [phone] Kelsey Minaya Unavailable Reason for Visit * Reason Onset Date Comments Hospital Follow-up 07/05/2024 Encounter Details Date Type Department Care Team ([facility] st Contact Info) Description 07/05/2024 Telephone [facility] MEDICINE [address] [place] [address] Chato Thomason MD [address] [place], [place] [phone] Hospital Follow-up Social History Tobacco Use Types [...] Boagrees with plan. * Telephone Encounter - uNsrat Root RN - 07/19/2024 1:52 PM EDT [...] the ED. His personal phone number is [phone]. We agreed to have him contact one of our team nurseif he has a concern about Mr Lawrence Childers and to update us at [facility] regularly on Friday on what Mr [...] Please see previous message. Please contact at [phone] * Telephone Encounter - Ronaldo Larios - 07/05/2024 8:03 AM EDT Tc from pt requesting a HDF appt. Hospital: [facility] Date of admission: 06/26 Discharge [...] [facility] MED & PEDS [address] [place] [address] Chato Thomason MD [address] [place] [address] 11/28/2025 2:00 PM EST Telemedicine [facility] MED & PEDS [address] [place] [address] Linda Pelaez RN 505 [place] [address] documented as of this encounter Visit Diagnoses Not on filedocumented in this encounter Care Teams Maintenance Planner Relationship Specialty Start Date End Date Chato Thomason MD [address] [place] [address] PCP - General Internal Medicine 10/27/18 Kelsey Minaya Community Health Worker 06/08/2407/07 Eliane Metzger Center ManagerLiteracy Education Professor 01/29/24 07/08/24 Mackenzie Roland Center Manager 07/09/24 Angela Pozo Center Manager 07/09/24 06/12/25 [facility] 06/12/23 Ezekiel Patricia Center ManagerLiteracy Education Professor 06/13/25 documented as of this encounter
--- OUTSIDE RECORDS SUMMARY | 2025-09-24 09:18 | XMS_ITS | Encounter Summary ---
Author Organization [employer] Address [address] [facility] 7t [place] [address] Care Team Providers Care Multimedia Project Manager Name Role Phone Chato Thomason MD Primary Care Provider +1- [phone] Kelsey Minaya Unavailable Encounter Details Date Type Department Care Team ([facility] st Contact Info) Description 03/01/2024 Orders Only [facility] CH[facility] MED & PEDS [address] [place], [place] [phone] ProviderColleen MD Social History Tobacco Use Types [...] [facility]EDS [address] [place] [address] Chato Thomason MD 505 [place] [address] 11/28/2025 2:00 PM EST Telemedicine [facility] MED & PEDS [address] [place] [address] Linda Pelaez RN 505 [place] [address] documented as of this encounter Procedures Procedure [...] on filedocumented in this encounter Care Teams Multimedia Project Manager Relationship Specialty Start Date End Date Chato Thomason MD [address] [place] [address] PCP - General Internal Medicine 10/27/18 Kelsey Minaya Community Health Worker 06/08/2407/07 Eliane Metzger Package HandlerSales Service Promoter 01/29/24 07/08/24 Mackenzie Roland Package Handler 07/09/24 Angela Pozo Package Handler 07/09/24 06/12/25 [facility] 06/12/23 Ezekiel Patricia Package HandlerSales Service Promoter 06/13/25 documented as of this encounter
--- OUTSIDE RECORDS SUMMARY | 2025-09-24 09:18 | XMS_ITS | Encounter Summary ---
Author Organization [employer] Address 75 [facility] 7 [place] [address] Care Team Providers Care Humid System Operator Name Role Phone Chato Thomason MD Primary Care Provider [phone] Reason for Visit * Reason Onset Date Comments Call Back Request 05/30/2025 Encounter Details Date Type Department Care Team ([facility] st Contact Info) Description 05/30/2025 Telephone [facility] MEDICINE [address] [place] [address] Chato Thomason MD [address] [place], [place] [phone] Call Back Request Social History Tobacco Use [...] discuss prior message. Contact pt mom at [phone] * Telephone Encounter - Familia [place] - 05/30/2025 8:38 AM EDT Tc from mom requesting call back stating they received a letter regarding home health aide but mom and pt are unsure on what agency will be providing services. They're also requesting guidance on howthe initial process would work. Please contact mom at [phone]. documented in this encounter Plan of Treatment Upcoming Encounters Date Type Department Care Team ([facility] st Contact Info) Description 09/29/2025 9:00 AM EST Telemedicine [facility] MED & PEDS [address] [place] [address] Chato Thomason MD [address] [place] [address] 11/28/2025 2:00 PM EST Telemedicine [facility] MED & PEDS [address] [place] [address] Linda Pelaez RN 505 [place] [address] documented as of this encounter Visit Diagnoses Not on filedocumented in this encounter Additional Health Concerns Assessment Noted Time PHQ-9 Depression Total Score: 19 024 3:44 PM EDT documented as of this encounter Care Teams Humid System Operator Relationship Specialty Start Date End Date Chato Thomason MD [address] [place] [address] PCP - General Internal Medicine 10/27/18 Mackenzie Roland Manager Foreign 07/09/24 Angela Pozo Manager Foreign 07/09/24 06/12/25 [facility] 06/12/23 Ezekiel Patricia Manager ForeignOim Consultant 06/13/25 documented as of this encounter
--- OUTSIDE RECORDS SUMMARY | 2025-09-24 09:18 | XMS_ITS | Encounter Summary ---
Author Organization [employer] Address 75 [facility] 7 [place] [address] Care Team Providers Care Impression Printer Name Role Phone Chato Thomason MD Primary Care Provider [phone] Reason for Visit * Reason Onset Date Comments insurance referral 09/08/2025 Encounter Details Date Type Department Care Team ([facility] st Contact Info) Description 09/08/2025 Telephone [facility] MEDICINE [address] [place] [address] Chato Thomason MD [address] [place], [place] [phone] insurance referral Social History Tobacco Use Types Packs/Day Years [...] * Telephone Encounter - Manisha Lara - 09/12/2025 9:02 AM EST TC from mom requesting a call back in regard of Insurance referral . PCP DR. Thomason * Telephone Encounter - Chato Thomason MD - 09/08/2025 3:31 PM EST FYI. The new referral was generated. * Telephone Encounter - Aliya Nelson RN - 09/08/2025 2:21 PM EST Tc from mom of pt requesting a insurance referral for location: [facility] [address] [facility] Appointment on 09/13 at 10:00am PCP Dr. Thomason Called pt to triage, spoke to mom Angelica. States pt seen Dermatology once yearly for shots and needa new referral. Advised will task to PCP for referral. Mom understands and agrees with plan. * Telephone Encounter - Manisha Lara - 09/08/2025 1:11 PM EST Tc from mom of pt requesting a insurance referral for location: [facility] dermatology [address] [facility] Appointment on 09/13 at 10:00am PCP Dr. Thomason documented in this encounter Plan of Treatment Upcoming Encounters Date Type Department Care Team (Late st Contact Info) Description 09/29/2025 9:00 AM EST Telemedicine [facility] MED & PEDS [address] [place] [address] Chato Thomason MD [address] [place] [address] 11/28/2025 2:00 PM EST Telemedicine [facility] MED & PEDS 505 [place] [address] Linda Pelaez, WALT 505 [place] [address] documented as of this encounter Visit Diagnoses Not on filedocumented in this encounter Additional Health Concerns Assessment Noted Time PHQ-9 Depression Total Score: 27 025 11:34 AM EDT documented as of this encounter Care Teams Impression Printer Relationship Specialty Start Date End Date Chato Thomason MD [address] [place] [address] PCP - General Internal Medicine 10/27/18 Mackenzie Roland Regional Business Manager 07/09/24 [facility] 06/12/23 Ezekiel Patricia Regional Business ManagerAir Hose Coupler 06/13/25 documented as of this encounter
--- OUTSIDE RECORDS SUMMARY | 2025-09-24 09:18 | XMS_ITS | Encounter Summary ---
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 MED & PEDS [address] [place] [address] Chato Thomason MD 505 [place] [address] 11/28/2025 2:00 PM EST Telemedicine 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
--- OUTSIDE RECORDS SUMMARY | 2025-09-24 09:18 | XMS_ITS | Encounter Summary ---
Author Organization [employer] Address 75 [facility] 7t [place] [address] Care Team Providers Care Track Repair Person Name Role Phone Chato Thomason MD Primary Care Provider [phone] Reason for Visit * Reason Comments Med Refill Encounter Details Date Type Department Care Team ([facility] st Contact Info) Description 08/04/2025 Refill [facility] MEDICINE [address] [place] [address] Chato Thomason MD 505 [place] [address] Anxiety Social History Tobacco Use Types Packs/Day [...] 09/29/2025 9:00 AM EST Telemedicine [facility] MED & PEDS 505 [place] [address] Chato Thomason MD 505 [place] [address] 11/28/2025 2:00 PM EST Telemedicine [facility] MED & PEDS [address] [place] [address] Linda Pelaez, WALT 505 [place] [address] documented as of this encounter Visit Diagnoses Diagnosis Anxiety Anxiety state, unspecified documented in this encounter Additional Health Concerns Assessment Noted Time PHQ-9 Depression Total Score: 19 024 3:44 PM EDT documented as of this encounter Care Teams Track Repair Person Relationship Specialty Start Date End Date Chato Thomason MD 505 [place] [address] PCP - General Internal Medicine 10/27/18 Mackenzie Roland Garment Parts Cutter Machine 07/09/24 [facility] 06/12/23 Ezekiel Patricia Garment Parts Cutter MachineStunt Woman 06/13/25 documented as of this encounter
--- OUTSIDE RECORDS SUMMARY | 2025-09-24 09:18 | XMS_ITS | Encounter Summary ---
Author Organization [employer] Address 75 [facility] 7 [place] [address] Care Team Providers Care Superintendent Landfill Operations Name Role Phone Chato Thomason MD Primary Care Provider [phone] Reason for Visit * Reason Onset Date Comments PT1 02/15/2025 Encounter Details Date Type Department Care Team ([facility] st Contact Info) Description 02/15/2025 Telephone [facility] MEDICINE 230 [place] [address] Chato Thomason MD 505 [place], [place] [phone] PT1 Social History Tobacco Use Types Packs/Day [...] Y/N: Yes Provider name or facility name: [address] [place] [id number] - [facility] Escort needed: Y/N: Yes Do you have a wheelchair: Y/N: No If yes- Manual or electric: N/A Visits: (2x weekly) documented in this encounter Plan of Treatment Upcoming Encounters Date Type Department Care Team ([facility] st Contact Info) Description 09/29/2025 9:00 AM EST Telemedicine [facility] MED & PEDS 505 [place] [address] Chato Thomason MD 505 [place], [place] [phone] 11/28/2025 2:00 PM EST Telemedicine [facility] MED & PEDS 505 [place] [address] Linda Pelaez RN 505 [place], [place] [phone] documented as of this encounter Visit Diagnoses Not on filedocumented in this encounter Additional Health Concerns Assessment Noted Time PHQ-9 Depression Total Score: 19 024 3:44 PM EDT documented as of this encounter Care Teams Superintendent Landfill Operations Relationship Specialty Start Date End Date Chato Thomason MD 505 [place] [address] PCP - General Internal Medicine 10/27/18 Mackenzie Roland Functional Director 07/09/24 Angela Pozo Functional Director 07/09/24 06/12/25 [facility] 06/12/23 Ezekiel Patricia Functional DirectorGranite Setter 06/13/25 documented as of this encounter
--- OUTSIDE RECORDS SUMMARY | 2025-09-24 09:18 | XMS_ITS | Encounter Summary ---
Author Organization [employer] Address 75 [facility] 7 [place] [address] Care Team Providers Care Extract Operator Name Role Phone Chato Thomason MD Primary Care Provider [phone] Reason for Visit * Reason Onset Date Comments Medication Question 08/17/2025 Encounter Details Date Type Department Care Team ([facility] st Contact Info) Description 08/17/2025 Telephone [facility] MEDICINE 230 [place] [address] Chato Thomason MD 505 [place] [address] Medication Question Social History Tobacco Use Types [...] 08/17/2025 3:05 PM EDT TC received from [facility] pharmacy requesting clarification on if pt [...] never received the prescription. Contact Mom at [phone] documented in this encounter Plan of Treatment Upcoming Encounters Date Type Department Care Team (Late st Contact Info) Description 09/29/2025 9:00 AM EST Telemedicine [facility] MED & PEDS [address] [place] [address] Chato Thomason MD 505 [place] [address] 11/28/2025 2:00 PM EST Telemedicine [facility] MED & PEDS [address] [place] [address] Linda Pelaez, WALT 505 [place] [address] documented as of this encounter Visit Diagnoses Not on filedocumented in this encounter Additional Health Concerns Assessment Noted Time PHQ-9 Depression Total Score: 27 025 11:34 AM EDT documented as of this encounter Care Teams Extract Operator Relationship Specialty Start Date End Date Chato Thomason MD 505 [place] [address] PCP - General Internal Medicine 10/27/18 Mackenzie Roland Interface Designer 07/09/24 [facility] 06/12/23 Ezekiel Patricia Interface DesignerBlood Bank Assistant 06/13/25 documented as of this encounter
--- OUTSIDE RECORDS SUMMARY | 2025-09-24 09:18 | XMS_ITS | Encounter Summary ---
Author Organization [employer] Address 75 [facility] 7 [place] [address] Care Team Providers Care Sr. Manager Marketing Name Role Phone Chato Thomason MD Primary Care Provider [phone] Reason for Visit * Reason Onset Date Comments Med Refill 08/19/2025 Encounter Details Date Type Department Care Team ([facility] st Contact Info) Description 08/19/2025 Telephone [facility] MED & PEDS [address] [place], [place] [phone] Chato Thomason MD 505 [place], [place] [phone] Med Refill Social History Tobacco Use Types [...] 0.5 MG tablet To be sent to: [facility] - [address] documented in this encounter Plan of Treatment Upcoming Encounters Date Type Department Care Team ([facility] st Contact Info) Description 09/29/2025 9:00 AM EST Telemedicine [facility] MED & PEDS 505 [place] [address] Chato Thomason MD 505 [place] [address] 11/28/2025 2:00 PM EST Telemedicine [facility] MED & PEDS [address] [place] [address] Linda Pelaez RN 505 [place] [address] documented as of this encounter Visit Diagnoses Not on filedocumented in this encounter Additional Health Concerns Assessment Noted Time PHQ-9 Depression Total Score: 27 025 11:34 AM EDT documented as of this encounter Care Teams Sr. Manager Marketing Relationship Specialty Start Date End Date Chtao Thomason MD [address] [place] [address] PCP - General Internal Medicine 10/27/18 Mackenzie Roland Parking Worker 07/09/24 [facility] 06/12/23 Ezekiel Patricia Parking WorkerResidential Concierge 06/13/25 documented as of this encounter
--- OUTSIDE RECORDS SUMMARY | 2025-09-24 09:18 | XMS_ITS | Encounter Summary ---
Author Organization [employer] Address 75 [facility] 7t [place] [address] Care Team Providers Care Attenuator Name Role Phone Chato Thomason MD Primary Care Provider [phone] Kelsey Minaya Unavailable Reason for Visit * Reason Onset Date Comments PT1 06/07/2024 Encounter Details Date Type Department Care Team ([facility] Contact Info) Description 06/07/2024 Telephone [facility] CH[facility] MED & PEDS [address] [place], [place] [phone] Chato Thomason MD 505 [place], [place] [phone] PT1 Social History Tobacco Use Types Packs/Day [...] Y/N: Yes Provider name or facility name: [facility] Facility Address: [address] [place] [address] Escort needed: Y/N: Yes Do you have a wheelchair: Y/N: No If yes- Manual or electric: n/a Visits: 1 x week documented in this encounter Plan of Treatment Upcoming Encounters Date Type Department Care Team (Late st Contact Info) Description 09/29/2025 9:00 AM EST Telemedicine [facility] MED & PEDS [address] [place] [address] Chato Thomason MD 505 [place] [address] 11/28/2025 2:00 PM EST Telemedicine [facility] CH[facility] MED & PEDS [address] [place] [address] Linda Pelaez RN 505 [place] [address] documented as of this encounter Visit Diagnoses Not on filedocumented in this encounter Care Teams Attenuator Relationship Specialty Start Date End Date Chato Thomason MD [address] [place] [address] PCP - General Internal Medicine 10/27/18 Kelsey Minaya Community Health Worker 06/08/2407/07 Eliane Metzger Rock Crushing Machine OperatorSummer Camp Counselor 01/29/24 07/08/24 Mackenzie Roland Rock Crushing Machine Operator 07/09/24 Angela Pozo Rock Crushing Machine Operator 07/09/24 06/12/25 [facility] 06/12/23 Ezekiel Patricia Rock Crushing Machine OperatorSummer Camp Counselor 06/13/25 documented as of this encounter
--- OUTSIDE RECORDS SUMMARY | 2025-09-24 09:18 | XMS_ITS | Encounter Summary ---
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) Dysphagia, unspecified type Chato Thomason MD 505 [place] [address] Phone: tel: fax: Moe Luna MD [address] [place] [address] [place] [address] Phone: tel: fax: Referral ID Status Reason Start Date Expiration Date V isits Requested Visits Authorized [id number] Closed Specialty Services Required 12/20/2024 12/20/2025 1 1 Encounter Details Date Type Department Care Team (Late st Contact Info) Description 12/20/2024 Orders Only [facility] MEDICINE [address] [place] [address] Chato Thomason MD [address] [place], [place] [phone] Squamous cell carcinoma of larynx (CMS/HCC) (Primary [...] Upcoming Encounters Date Type Department Care Team ([facility] Contact Info) Description 09/29/2025 9:00 AM EST Telemedicine [facility] CHC MED & PEDS [address] [place] [address] Chato Thomason MD [address] [place] [address] 11/28/2025 2:00 PM EST Telemedicine [facility] CHC MED & PEDS [address] [place] [address] Linda Pelaez RN 505 [place] [address] Scheduled Referrals Name Type Priority Associated Diagnoses [...] documented as of this encounter Care Teams Spray Crew Relationship Specialty Start Date End Date Chato Thomason MD [address] [place] [address] PCP - General Internal Medicine 10/27/18 Mackenzie Roland Community Outreach Director 07/09/24 Angela Pozo Community Outreach Director 07/09/24 06/12/25 [facility] 06/12/23 Ezekiel Patricia Community Outreach DirectorElectronics Engineering Technician 06/13/25 documented as of this encounter
--- OUTSIDE RECORDS SUMMARY | 2025-09-24 09:18 | XMS_ITS | Encounter Summary ---
Author Organization [employer] Address [address] [place] [address], [place] [address] Care Team Providers Care Credit Union Teller Name Role Phone Chato Thomason MD Primary Care Provider [phone] Kelsey Minaya Unavailable Reason for Referral * Consultation (Routine) - Closed Specialty Diagnoses / Procedures Referred By Contac t Referred To Contact Podiatry Diagnoses Nail problem Chato Thomason MD 505 [place] [address] Phone: tel: fax: Referral ID Status Reason Start Date Expiration Date V isits Requested Visits Authorized [id number] Closed Specialty Services Required 06/11/2024 06/11/2025 1 1 Encounter Details Date Type Department Care Team ([facility] st Contact Info) Description 06/11/[address] [facility] CHC MED & PEDS [address] [place] [address] Chato Thomason MD [address] [place] [address] Nail problem (Primary Dx); Anxiety Social History [...] Description 09/29/2025 9:00 AM EST Telemedicine [facility] MED & PEDS [address] [place] [address] Chato Thomason MD 505 [place] [address] 11/28/2025 2:00 PM EST Telemedicine [facility] MED & PEDS [address] [place] [address] Linda Pelaez RN 505 [place] [address] Scheduled Referrals Name Type Priority Associated Diagnoses Orde r Schedule Referral to Podiatry Outpatient Referral Routine Nail problem Expected: 06/11/2024 (Approximate), Expires: 06/11/2025 documented as of this encounter Visit Diagnoses Diagnosis Nail problem- Primary Other specified disease of nail Anxiety Anxiety state, unspecified documented in this encounter Care Teams Credit Union Teller Relationship Specialty Start Date End Date Chato Thomason MD [address] [place] [address] PCP - General Internal Medicine 10/27/18 Kelsye Minaya Community Health Worker 06/08/2407/07 Eliane Metzger Manager ChineseCommission Specialist 01/29/24 07/08/24 Mackenzie Roland Manager Chinese 07/09/24 Angela Pozo Manager Chinese 07/09/24 06/12/25 [facility] 06/12/23 Ezekiel Patricia Manager ChineseCommission Specialist 06/13/25 documented as of this encounter
--- OUTSIDE RECORDS SUMMARY | 2025-09-24 09:18 | XMS_ITS | Encounter Summary ---
Author Organization [employer] Address 75 [facility] 7t [place] [address] Care Team Providers Care Shine Worker Name Role Phone Chato Thomason MD Primary Care Provider [phone] Encounter Details Date Type Department Care Team ([facility] st Contact Info) Description 07/08/2025 Orders Only [facility] MED & PEDS [address] [place], [place] [phone] Chato Thomason MD [address] [place], [place] [phone] Neuropathic pain; Anxiety Social History Tobacco Use [...] [facility] [address] [place] [address] Chato Thomason MD [address] [place] [address] 11/28/2025 2:00 PM EST Telemedicine [facility] [address] [place] [address] Linda Pelaez RN 505 [place] [address] documented as of this encounter Visit Diagnoses Diagnosis Neuropathic pain Anxiety Anxiety state, unspecified documented in this encounter Additional Health Concerns Assessment Noted Time PHQ-9 Depression Total Score: 19 024 3:44 PM EDT documented as of this encounter Care Teams Shine Worker Relationship Specialty Start Date End Date Chato Thomason MD [address] [place] [address] PCP - General Internal Medicine 10/27/18 Mackenzie Roland Epic Professional 07/09/24 [facility] 06/12/23 Ezekiel Patricia Epic ProfessionalInsurance Producer 06/13/25 documented as of this encounter
--- OUTSIDE RECORDS SUMMARY | 2025-09-24 09:18 | XMS_ITS | Encounter Summary ---
Author Organization [employer] Address [address] [place] [address] Care Team Providers Care Meat Service Team Member Name Role Phone Chato Thomason MD Primary Care Provider [phone] Kelsey Minaya Unavailable Reason for Referral * Consultation (Routine) - Closed Specialty Diagnoses / Procedures Referred By Contac t Referred To Contact Occupational Therapy Diagnoses Lymphedema Chato Thomason MD [address] [place] [address] Phone: tel: fax: [facility] [address] Phone: tel: fax: Referral ID Status Reason Start Date Expiration Date V isits Requested Visits Authorized [id number] Closed Specialty Services Required 07/16/2024 07/16/2025 1 1 Encounter Details Date Type Department Care Team (Late st Contact Info) Description 07/07/2024 Orders Only [facility] CH[facility] MED & PEDS [address] [place], [place] [address] Chato Thomason MD [address] [place] [address] Anxiety (Primary Dx); Lymphedema Social History Tobacco [...] Upcoming Encounters Date Type Department Care Team ([facility] st Contact Info) Description 09/29/2025 9:00 AM EST Telemedicine [facility] MED & PEDS [address] [place] [address] Chato Thomason MD [address] [place] [address] 11/28/2025 2:00 PM EST Telemedicine [facility] MED & PEDS [address] [place] [address] Linda Pelaez RN 505 [place] [address] Scheduled Referrals Name Type Priority Associated Diagnoses Order Schedule Referral to Occupational Therapy Outpatient Referral Routine Lymphedema Expected: 07/16/2024 (Approximate), Expires: 07/16/2025 documented as of this encounter Visit Diagnoses Diagnosis Anxiety- Primary Anxiety state, unspecified Lymphedema Other noninfectious lymphedema documented in this encounter Care Teams Meat Service Team Member Relationship Specialty Start Date End Date Chato Thomason MD [address] [place] [address] PCP - General Internal Medicine 10/27/18 Kelsey Minaya Community Health Worker 06/08/2407/07 Eliane Metzger Material AssemblerMachine Egg Washer 01/29/24 07/08/24 Mackenzie Roland Material Assembler 07/09/24 Angela Pozo Material Assembler 07/09/24 06/12/25 [facility] 06/12/23 Ezekiel Patricia Material AssemblerMachine Egg Washer 06/13/25 documented as of this encounter
--- OUTSIDE RECORDS SUMMARY | 2025-09-24 09:18 | XMS_ITS | Encounter Summary ---
Author Organization [employer] Address 75 [facility] 7 [place] [address] Care Team Providers Care Printing Assistant Name Role Phone Chato Thomason MD Primary Care Provider [phone]- [phone] Kelsey Minaya Unavailable Reason for Visit * Reason Onset Date Comments PT-1 05/14/2024 Encounter Details Date Type Department Care Team ([facility] st Contact Info) Description 05/14/2024 Telephone [facility] MEDICINE [address] [place] [address] Chato Thomason MD [address] [place], [place] [phone] PT-1 Social History Tobacco Use Types Packs/Day [...] Y/N: Yes Provider name or facility name: [facility] Facility Address: [address] [place] [address] Escort needed: Y/N: Yes Do you have a wheelchair: Y/N: No If yes- Manual or electric: no Visits: 6 documented in this encounter Plan of Treatment Upcoming Encounters Date Type Department Care Team (Late st Contact Info) Description 09/29/2025 9:00 AM EST Telemedicine [facility] MED & PEDS [address] [place] [address] Chato Thomason MD [address] [place] [address] 11/28/2025 2:00 PM EST Telemedicine [facility] MED & PEDS [address] [place] [address] Linda Pelaez, WALT 505 [place] [address] documented as of this encounter Visit Diagnoses Not on filedocumented in this encounter Care Teams Printing Assistant Relationship Specialty Start Date End Date Chato Thomason MD [address] [place] [address] PCP - General Internal Medicine 10/27/18 Kelsey Minaya Community Health Worker 06/08/2407/07 Eliane Metzger R D ManagerVice President Of Software Engineering 01/29/24 07/08/24 Mackenzie Roland R D Manager 07/09/24 Angela Pozo R D Manager 07/09/24 06/12/25 [facility] 06/12/23 Ezekiel Patricia R D ManagerVice President Of Software Engineering 06/13/25 documented as of this encounter
--- OUTSIDE RECORDS SUMMARY | 2025-09-24 09:18 | XMS_ITS | Encounter Summary ---
Author Organization [employer] Address [address] [facility] 7t [place] [address] Care Team Providers Care Varnish Melter Helper Name Role Phone Chato Thomason MD Primary Care Provider [phone] Encounter Details Date Type Department Care Team (Late st Contact Info) Description 06/03/2025 Orders Only [facility] [address] [place], [place] [phone] ProviderColleen MD Social History Tobacco Use Types [...] ([facility] st Contact Info) Description 09/29/2025 9:00 AM EST Telemedicine [facility] MED & PEDS [address] [place] [address] Chato Thomason MD 505 [place] [address] 11/28/2025 2:00 PM EST Telemedicine [facility] MED & PEDS [address] [place] [address] Linda Pelaez, WALT 505 [place] [address] documented as of this encounter Procedures Procedure Name Priority Date/Time Associated Diagnosis Comments FL GUIDANCE IN OR Routine 07/01/2025 7:4 6 AM EDT FL MODIFIED BARIUM SWALLOW Routine 06/02/2025 11:09 AM EDT documented in this encounter Results * FL Guidance in OR (07/01/2025 7:46 AM EDT) Anatomical Region Laterality Modality X-Ray Angiograph y 07/01/2025 7:46 AM EDT Narrative 07/01/2025 9:55 AM EDT [address] [address] Fluoroscopy Report Signed Patient: Lawrence Childers MR#: [id number] 50 : 1965 Acct:[id number] Age/Sex: 60 / M ADM Date: 07/01/25 Loc: HO.SSS Attending Dr: Moe Luna MD Ordering Physician: Moe Luna MD Date of Service: 07/01/25 Procedure(s): FL guidance in OR Accession Number(s): [id number] cc: Chato Thomason MD; Moe Luna MD [...] Ho MD in OV> 07/01/2552 DD/ TD/TT: 07/01/25 0920 Program Director/Music Director: Procedure Note Donotevansinterpreter, Image - 07/01/[address] [address] Fluoroscopy Report Signed Patient: Lawrence Childers MMR#: [id number] 50 : 1965Acct:[id number] Age/Sex: 60 / MADM Date: 07/01/25 Loc: HO.SSS Attending Dr: Moe Luna MD Ordering Physician: Moe Luna MD Date of Service: 07/01/25 Procedure(s): FL guidance in OR Accession Number(s): [id number] cc: Chato Thomason MD; Moe Luna MD [...] in OV> 07/01/2552 DD/ 5 TD/TT: 07/01/25919 Program Director/Music Director: [facility] External Provider IMG [...] documented as of this encounter Care Teams Varnish Melter Helper Relationship Specialty Start Date End Date Chato Thomason MD [address] [place] [address] PCP - General Internal Medicine 10/27/18 Mackenzie Roland Space Scheduler 07/09/24 Angela Pozo Space Scheduler 07/09/24 06/12/25 [facility] 06/12/23 Ezekiel Patricia Space SchedulerJ2Ee Engineer 06/13/25 documented as of this encounter
--- OUTSIDE RECORDS SUMMARY | 2025-09-24 09:18 | XMS_ITS | Encounter Summary ---
Author Organization [employer] Address 75 [facility] 7 [place] [address] Care Team Providers Care Athletic Training Internship Name Role Phone Chato Thomason MD Primary Care Provider [phone] Reason for Visit * Reason Onset Date Comments order needed 07/14/2025 Encounter Details Date Type Department Care Team ([facility] st Contact Info) Description 07/14/2025 Telephone [facility] MEDICINE [address] [place] [address] Chato Thomason MD 505 [place] [address] order needed Social History Tobacco Use Types [...] discuss prior message Contact pt mom at [phone] * Telephone Encounter - Jeffrey Devine - 07/14/2025 4:04 PM EDT TC from linda MATTHEWS calling requesting Order for [facility] to insert Gtube . ORDER must be addressed to Margaret weber. documented in this encounter Plan of Treatment Upcoming Encounters Date Type Department Care Team (Late st Contact Info) Description 09/29/2025 9:00 AM EST Telemedicine [facility] MED & PEDS [address] [place] [address] Chato Thomason MD 505 [place] [address] 11/28/2025 2:00 PM EST Telemedicine [facility] MED & PEDS [address] [place] [address] Linda Pelaez RN 505 [place] [address] documented as of this encounter Visit Diagnoses Not on filedocumented in this encounter Additional Health Concerns Assessment Noted Time PHQ-9 Depression Total Score: 19 024 3:44 PM EDT documented as of this encounter Care Teams Athletic Training Internship Relationship Specialty Start Date End Date Chato Thomason MD 505 [place] [address] PCP - General Internal Medicine 10/27/18 Mackenize Roland Golf Cart Assembler 07/09/24 [facility] 06/12/23 Ezekiel Patricia Golf Cart AssemblerRemote Broadcast Technician 06/13/25 documented as of this encounter
--- OUTSIDE RECORDS SUMMARY | 2025-09-24 09:18 | XMS_ITS | Encounter Summary ---
Author Organization [employer] Address 75 [facility] 7 [place] [address] Care Team Providers Care Railroad Car Inspector Name Role Phone Chato Thomason MD Primary Care Provider [phone] Reason for Visit * Reason Onset Date Comments PT1 02/04/2025 Encounter Details Date Type Department Care Team ([facility] st Contact Info) Description 02/04/2025 Telephone [facility] MEDICINE [address] [place] [address] Chato Thomason MD [address] [place], [place] [phone] PT1 Social History Tobacco Use Types Packs/Day [...] Yes Provider name or facility name: [address] [place] [address] Escort needed: Y/N: Yes Do you have a wheelchair: Y/N: No If yes- Manual or electric: N/A Visits: ( 1x weekly) Patient calling requesting PT1 Home Address verified: Y/N: Yes Provider name or facility name: [address] [place] [address] Escort needed: Y/N: Yes Do you have a wheelchair: Y/N: No If yes- Manual or electric: N/A Visits: ( 1x month) documented in this encounter Plan of Treatment Upcoming Encounters Date Type Department Care Team (Late st Contact Info) Description 09/29/2025 9:00 AM EST Telemedicine [facility] MED & PEDS [address] [place], [place] [phone] Chato Thomason MD 505 [place] [address] 11/28/2025 2:00 PM EST Telemedicine [facility] MED & PEDS 505 [place] [address] Linda Pelaez, RN 505 [place], [place] [phone] documented as of this encounter Visit Diagnoses Not on filedocumented in this encounter Additional Health Concerns Assessment Noted Time PHQ-9 Depression Total Score: 19 024 3:44 PM EDT documented as of this encounter Care Teams Railroad Car Inspector Relationship Specialty Start Date End Date Chato Thomason MD 505 [place] [address] PCP - General Internal Medicine 10/27/18 Mackenzie Roland Cashier Tube Room 07/09/24 Angela Pozo Cashier Tube Room 07/09/24 06/12/25 [facility] 06/12/23 Ezekiel Patricia Cashier Tube RoomBee Keeper 06/13/25 documented as of this encounter
--- OUTSIDE RECORDS SUMMARY | 2025-09-24 09:18 | XMS_ITS | Encounter Summary ---
Author Organization [employer] Address 75 [facility] 7 [place] [address] Care Team Providers Care Forms Analyst Name Role Phone Chato Thomason MD Primary Care Provider [phone] Reason for Visit * Reason Onset Date Comments Med Refill 02/15/2025 Encounter Details Date Type Department Care Team (Late st Contact Info) Description 02/15/2025 Telephone [facility] MEDICINE [address] [place] [address] Chato Thomason MD [address] [place], [place] [phone] Med Refill Social History Tobacco Use Types [...] Upcoming Encounters Date Type Department Care Team ([facility] st Contact Info) Description 09/29/2025 9:00 AM EST Telemedicine [facility] MED & PEDS 505 [place] [address] Chato Thomason MD 505 [place] [address] 11/28/2025 2:00 PM EST Telemedicine [facility] MED & PEDS 505 [place] [address] Linda Pelaez RN 505 [place] [address] documented as of this encounter Visit Diagnoses Not on filedocumented in this encounter Additional Health Concerns Assessment Noted Time PHQ-9 Depression Total Score: 19 024 3:44 PM EDT documented as of this encounter Care Teams Forms Analyst Relationship Specialty Start Date End Date hCato Thomason MD [address] [place] [address] PCP - General Internal Medicine 10/27/18 Mackenzie Roland Information Technology Administrator 07/09/24 Angela Pozo Information Technology Administrator 07/09/24 06/12/25 [facility] 06/12/23 Ezekiel Patricia Information Technology AdministratorFinal Tester 06/13/25 documented as of this encounter
--- OUTSIDE RECORDS SUMMARY | 2025-09-24 09:18 | XMS_ITS | Encounter Summary ---
Author Organization [employer] Address 75 [facility] 7 [place] [address] Care Team Providers Care Legal Secretary Name Role Phone Chato Thomason MD Primary Care Provider [phone] Reason for Visit * Reason Onset Date Comments Med Refill 02/24/2025 Encounter Details Date Type Department Care Team (Late st Contact Info) Description 02/24/2025 Telephone [facility] MEDICINE [address] [place] [address] Chato Thomason MD 505 [place], [place] [phone] Med Refill Social History Tobacco Use Types [...] ([facility] st Contact Info) Description 09/29/2025 9:00 AM EST Telemedicine [facility] MED & PEDS 505 [place] [address] Chato Thomason MD 505 [place] [address] 11/28/2025 2:00 PM EST Telemedicine [facility] MED & PEDS [address] [place] [address] Linda Pelaez RN 505 [place] [address] documented as of this encounter Visit Diagnoses Not on filedocumented in this encounter Additional Health Concerns Assessment Noted Time PHQ-9 Depression Total Score: 19 024 3:44 PM EDT documented as of this encounter Care Teams Legal Secretary Relationship Specialty Start Date End Date Chato Thomason MD [address] [place] [address] PCP - General Internal Medicine 10/27/18 Mackenzie Roland Senior Mechanical Project Manager 07/09/24 Angela Pozo Senior Mechanical Project Manager 07/09/24 06/12/25 [facility] 06/12/23 Ezekiel Patricia Senior Mechanical Project ManagerGunner'S Mate G 06/13/25 documented as of this encounter
--- OUTSIDE RECORDS SUMMARY | 2025-09-24 09:18 | XMS_ITS | Encounter Summary ---
Author Organization [employer] Address 75 [facility] 7t [place] [address] Care Team Providers Care Tafe Registrar Name Role Phone Chato Thomason MD Primary Care Provider [phone]- [phone] Kelsey Minaya Unavailable Encounter Details Date Type Department Care Team ([facility] st Contact Info) Description 03/30/[address] [facility] MED & PEDS [address] [place], [place] [phone] ProviderColleen MD Social History Tobacco Use Types [...] 9:00 AM EST Telemedicine [facility] MED & PEDS 505 [place] [address] Chato Thomason MD 505 [place] [address] 11/28/2025 2:00 PM EST Telemedicine [facility] MED & PEDS 505 [place] [address] Linda Pelaez RN 505 [place] [address] documented as of this encounter Procedures Procedure Name Priority Date/Time Associated Diagnosis Comments SURGICAL PATHOLOGY Routine 03/25/2024 8:43 AM EDT documented in this encounter Results * Surgical Pathology (03/25/2024 8:43 AM EDT) Historical Provider LAB PATHOLOGY ORDERABLES Final Result documented in this encounter Visit Diagnoses Not on filedocumented in this encounter Care Teams Tafe Registrar Relationship Specialty Start Date End Date Chato Thomason MD 505 [place] [address] PCP - General Internal Medicine 10/27/18 Kelsey Minaya Community Health Worker 06/08/2407/07 Eliane Metzger Production Control ManagerResearch Electrician 01/29/24 07/08/24 Mackenzie Roland Production Control Manager 07/09/24 Angela Pozo Production Control Manager 07/09/24 06/12/25 [facility] 06/12/23 Ezekiel Patricia Production Control ManagerResearch Electrician 06/13/25 documented as of this encounter
--- OUTSIDE RECORDS SUMMARY | 2025-09-24 09:18 | XMS_ITS | Encounter Summary ---
Author Organization [employer] Address 75 [facility] 7t [place] [address] Care Team Providers Care Family Law Legal Assistant Name Role Phone Chato Thomason MD Primary Care Provider [phone]- [phone] Kelsey Minaya Unavailable Encounter Details Date Type Department Care Team (Late st Contact Info) Description 02/26/2024 Orders Only [facility] [address] [place] [address] Provider, MD Colleen Social History Tobacco Use [...] 09/29/2025 9:00 AM EST Telemedicine [facility] MED & PEDS 505 [place] [address] Chato Thomason MD 505 [place] [address] 11/28/2025 2:00 PM EST Telemedicine [facility] MED & PEDS 505 [place] [address] Linda Pelaez RN 505 [place] [address] documented as of this encounter Procedures Procedure Name Priority Date/Time Associated Diagnosis Comments PATHOLOGY REPORT (HISTOPATHOLOGY) Routine 02/24/2024 3:36 PM EDT documented in this encounter Results * Pathology Report (02/24/2024 3:36 PM EDT) Tissue Historical Provider LAB PATHOLOGY ORDERABLES Final Result documented in this encounter Visit Diagnoses Not on filedocumented in this encounter Care Teams Family Law Legal Assistant Relationship Specialty Start Date End Date Chato Thomason MD 505 [place] [address] PCP - General Internal Medicine 10/27/18 Kelsey Minaya Community Health Worker 06/08/2407/07 Eliane Metzger Supervisor Continuous Weld Pipe MillEmbossing Press Operator Apprentice 01/29/24 07/08/24 Mackenzie Roland Supervisor Continuous Weld Pipe Mill 07/09/24 Angela Pozo Supervisor Continuous Weld Pipe Mill 07/09/24 06/12/25 [facility] 06/12/23 Ezekiel Patricia Supervisor Continuous Weld Pipe MillEmbossing Press Operator Apprentice 06/13/25 documented as of this encounter
--- OUTSIDE RECORDS SUMMARY | 2025-09-24 09:18 | XMS_ITS | Encounter Summary ---
Author Organization [employer] Address 75 [facility] 7t [place] [address] Care Team Providers Care Residential Nurse Name Role Phone Chato Thomason MD Primary Care Provider +[phone] Kelsey Minaya Unavailable Encounter Details Date Type Department Care Team ([facility] st Contact Info) Description 06/25/2024 Orders Only [facility] MED & PEDS [address] [place], [place] [phone] ProviderColleen MD Social History Tobacco Use Types [...] Upcoming Encounters Date Type Department Care Team ([facility] st Contact Info) Description 09/29/2025 9:00 AM EST Telemedicine [facility] MED & PEDS [address] [place] [address] Chato Thomason MD 505 [place] [address] 11/28/2025 2:00 PM EST Telemedicine [facility] MED & PEDS [address] [place] [address] Linda Pelaez RN 505 [place] [address] documented as of this encounter Procedures Procedure [...] on filedocumented in this encounter Care Teams Residential Nurse Relationship Specialty Start Date End Date Chato Thomason MD 505 [place] [address] PCP - General Internal Medicine 10/27/18 Kelsey Minaya Community Health Worker 06/08/2407/07 Eliane Metzger Options AdvisorAdjunct Latin Professor 01/29/24 07/08/24 Mackenzie Roland Options Advisor 07/09/24 Angela Pozo Options Advisor 07/09/24 06/12/25 [facility] 06/12/23 Ezekiel Patricia Options AdvisorAdjunct Latin Professor 06/13/25 documented as of this encounter
--- OUTSIDE RECORDS SUMMARY | 2025-09-24 09:18 | XMS_ITS | Encounter Summary ---
Author Organization [employer] Address 75 [facility] 7 [place] [address] Care Team Providers Care Sales Account Manager Name Role Phone Chato Thomason MD Primary Care Provider [phone] Reason for Visit * Reason Onset Date Comments pt1 08/12/2025 Encounter Details Date Type Department Care Team ([facility] Contact Info) Description 08/12/2025 Telephone [facility] MED & PEDS 505 [place], [place] [phone] Chato Thomason MD [address] [place], [place] [phone] pt1 Social History Tobacco Use Types Packs/Day [...] Y/N: Yes Provider name or facility name: [facility] [address] [facility] [place] [address] Escort needed: Y/N: Yes Do you have a wheelchair: NO If yes- Manual or electric: Visits: 3x Patient calling requesting PT1 Home Address verified: Y/N: Yes Provider name or facility name: [address] [facility] [address] [place] [address] Escort needed: Y/N: Yes Do you have a wheelchair: Y/N: No If yes- Manual or electric: Visits: 2x Patient calling requesting PT1 Home Address verified: Y/N: Yes Provider name or facility name: [address] [place] [address] [address] [place] [address] Escort needed: Y/N: Yes Do you have a wheelchair: Y/N: No If yes- Manual or electric: Visits: 2x Patient calling requesting PT1 Home Address verified: Y/N: Yes Provider name or facility name: [address] [place] [address] Escort needed: Y/N: Yes Do you have a wheelchair: Y/N: No If yes- Manual or electric: Visits: 1x a month documented in this encounter Plan of Treatment Upcoming Encounters Date Type Department Care Team (Late st Contact Info) Description 09/29/2025 9:00 AM EST Telemedicine [facility] MED & PEDS 505 [place] [address] Chato Thomason MD 505 [place] [address] 11/28/2025 2:00 PM EST Telemedicine [facility] MED & PEDS 505 [place] [address] Linda Pelaez RN 505 [place] [address] documented as of this encounter Visit Diagnoses Not on filedocumented in this encounter Additional Health Concerns Assessment Noted Time PHQ-9 Depression Total Score: 27 025 11:34 AM EDT documented as of this encounter Care Teams Sales Account Manager Relationship Specialty Start Date End Date Chato Thomason MD [address] [place] [address] PCP - General Internal Medicine 10/27/18 Mackenzie Roland Planner Internship 07/09/24 [facility] 06/12/23 Ezekiel Patricia Planner InternshipPension Manager 06/13/25 documented as of this encounter
--- OUTSIDE RECORDS SUMMARY | 2025-09-24 09:18 | XMS_ITS | Encounter Summary ---
Author Organization [employer] Address [address] [place] [address] Care Team Providers Care Upkeep Mechanic Name Role Phone Chato Thomason MD Primary Care Provider [phone] Reason for Referral * Consultation (Routine) - Closed Specialty Diagnoses / Procedures Referred By Maryana t Referred To Contact Physical Therapy Diagnoses Lymphatic edema Chato Thomason MD 505 [place] [address] Phone: tel: fax: Referral ID Status Reason Start Date Expiration Date V isits Requested Visits Authorized [id number] Closed Specialty Services Required 03/16/2025 03/16/2026 1 1 * Consultation (Routine) - Closed Specialty Diagnoses / Procedures Referred By Maryana singh Referred To Contact Gastroenterology Diagnoses Epigastric pain Chato Thomason MD [address] [place] [address] Phone: tel: fax: Yomi Hernandes MD [address] [place] [address] Phone: tel: fax: Referral ID Status Reason Start Date Expiration Date V isits Requested Visits Authorized [id number] Closed Specialty Services Required 03/04/2025 03/04/2026 1 1 * Consultation (Routine) - Closed Specialty Diagnoses / Procedures Referred By Maryana singh Referred To Contact Occupational Therapy Diagnoses Lymphatic edema Chato Thomason MD [address] [place] [address] Phone: tel: fax: Referral ID Status Reason Start Date Expiration Date V isits Requested Visits Authorized [id number] Closed Specialty Services Required 03/04/2025 03/04/2026 1 1 Encounter Details Date Type Department Care Team ([facility] st Contact Info) Description 03/04/2025 Orders Only [facility] MED & PEDS [address] [place] [address] Chato Thomason MD [address] [place] [address] Lymphatic edema (Primary Dx); Epigastric pain Social [...] Health And Wellness st Contact Info) Description 09/29/2025 9:00 AM EST Telemedicine [facility] MED & PEDS [address] [place] [address] Chato Thomason MD [address] [place] [address] 11/28/2025 2:00 PM EST Telemedicine [facility] MED & PEDS [address] [place] [address] Linda Pelaez, WALT 505 [place] [address] Scheduled Referrals Name Type Priority Associated Diagnoses [...] documented as of this encounter Care Teams Upkeep Mechanic Relationship Specialty Start Date End Date Chato Thomason MD [address] [place] [address] PCP - General Internal Medicine 10/27/18 Mackenzie Roland Sticker On 07/09/24 Angela Pozo Sticker On 07/09/24 06/12/25 [facility] 06/12/23 Ezekeil Patricia Sticker OnBiosecurity Officer 06/13/25 documented as of this encounter
--- OUTSIDE RECORDS SUMMARY | 2025-09-24 09:18 | XMS_ITS | Encounter Summary ---
Author Organization [employer] Address 75 [facility] 7 [place] [address] Care Team Providers Care Employee Benefits Specialist Name Role Phone Chato Thomason MD Primary Care Provider [phone] Reason for Visit * Reason Onset Date Comments Med Refill 09/19/2025 Encounter Details Date Type Department Care Team ([facility] st Contact Info) Description 09/19/2025 Refill [place] [facility]EDS [address] [place], [place] [phone] Chato Thomaosn MD 505 [place] [address] Neuropathic pain Social History Tobacco Use Types [...] encounter Miscellaneous Notes * Telephone Encounter - Lucia Elmore LPN - 09/19/2025 8:14 AM EST Tubing Oiler checked on 09.19.25 and last seen 08.11.25 * Telephone Encounter - Barney Macdonald - 09/19/2025 8:05 AM EST TC from pt requesting medication refill. Medications needing refill : Pregabalin 20 MG/ML solution To be sent to: [facility] documented in this encounter Plan of Treatment Upcoming Encounters Date Type Department Care Team ([facility] st Contact Info) Description 09/29/2025 9:00 AM EST Telemedicine [facility] MED & PEDS [address] [place], [place] [phone] Cahto Thomason MD [address] [place], [place] [phone] 11/28/2025 2:00 PM EST Telemedicine [facility]S [address] [place] [address] Linda Pelaez, RN [address] [place] [address] documented as of this encounter Visit Diagnoses Diagnosis Neuropathic pain documented in this encounter Additional Health Concerns Assessment Noted Time PHQ-9 Depression Total Score: 27 025 11:34 AM EDT documented as of this encounter Care Teams Employee Benefits Specialist Relationship Specialty Start Date End Date Chato Thomason MD [address] [place] [address] PCP - General Internal Medicine 10/27/18 Mackenzie Roland Building Maintenance Engineer 07/09/24 [facility] 06/12/23 Ezekiel Patricia Building Maintenance EngineerCredit Assistant 06/13/25 documented as of this encounter
--- OUTSIDE RECORDS SUMMARY | 2025-09-24 09:18 | XMS_ITS | Encounter Summary ---
Author Organization [employer] Address 75 [facility] 7 [place] [address] Care Team Providers Care City Planning Teacher Name Role Phone Chato Thomason MD Primary Care Provider [phone] Reason for Visit * Reason Onset Date Comments Durable Medical Equipment 08/23/2025 Encounter Details Date Type Department Care Team (Late st Contact Info) Description 08/23/2025 Telephone [facility] MEDICINE [address] [place] [address] Chato Thomason MD [address] [place], [place] [phone] Durable Medical Equipment Social History Tobacco Use [...] 09/29/2025 9:00 AM EST Telemedicine [facility] MED & PEDS [address] [place] [address] Chato Thomason MD [address] [place] [address] 11/28/2025 2:00 PM EST Telemedicine [facility] MED & PEDS [address] [place] [address] Linda Pelaez, WALT [address] [place] [address] documented as of this encounter Visit Diagnoses Not on filedocumented in this encounter Additional Health Concerns Assessment Noted Time PHQ-9 Depression Total Score: 27 025 11:34 AM EDT documented as of this encounter Care Teams City Planning Teacher Relationship Specialty Start Date End Date Chato Thomason MD [address] [place] [address] PCP - General Internal Medicine 10/27/18 Mackenzie Roland Press Tool Maker 07/09/24 [facility] 06/12/23 Ezekiel Patricia Press Tool MakerNetezza Architect 06/13/25 documented as of this encounter
--- OUTSIDE RECORDS SUMMARY | 2025-09-24 09:18 | XMS_ITS | Encounter Summary ---
Author Organization [employer] Address 75 [facility] 7 [place] [address] Care Team Providers Care Chemist Internship Name Role Phone Chato Thomason MD Primary Care Provider +[phone]- [phone] Kelsey Minaya Unavailable Reason for Visit * Reason Onset Date Comments Call Back Request 05/03/2024 Encounter Details Date Type Department Care Team ([facility] Contact Info) Description 05/03/[address] [facility] MEDICINE [address] [place] [address] Chato Thomason MD [address] [place], [place] [phone] Call Back Request Social History Tobacco Use [...] 4:37 PM EDT Tc from Joyce with [facility] requesting call back to discuss new referral. Joyce stated carecoordination attempted to contact pt but he wasn't able to answer due to pt not being able to speak. Please contact Joyce at [phone]. documented in this encounter Plan of Treatment Upcoming Encounters Date Type Department Care Team (Late st Contact Info) Description 09/29/2025 9:00 AM EST Telemedicine [facility] MED & PEDS [address] [place] [address] Chato Thomason MD [address] [place] [address] 11/28/2025 2:00 PM EST Telemedicine [facility] MED & PEDS [address] [place] [address] Linda Pelaez, WALT 505 [place] [address] documented as of this encounter Visit Diagnoses Not on filedocumented in this encounter Care Teams Chemist Internship Relationship Specialty Start Date End Date Chato Thomason MD [address] [place] [address] PCP - General Internal Medicine 10/27/18 Kelsey Minaya Community Health Worker 06/08/2407/07 Eliane Metzger Certified Legal Secretary SpecialistField Examiner 01/29/24 07/08/24 Mackenzie Roland Certified Legal Secretary Specialist 07/09/24 Angela Pozo Certified Legal Secretary Specialist 07/09/24 06/12/25 [facility] 06/12/23 Ezekiel Patricia Certified Legal Secretary SpecialistField Examiner 06/13/25 documented as of this encounter
--- OUTSIDE RECORDS SUMMARY | 2025-09-24 09:19 | XMS_ITS | Encounter Summary ---
Author Organization [employer] Address [address] [facility] 7 [place] [address] Care Team Providers Care Can Closing Machine Operator Name Role Phone Chato Thomason MD Primary Care Provider [phone] Reason for Visit * Reason Onset Date Comments Medication Question 09/02/2025 Encounter Details Date Type Department Care Team ([facility] Contact Info) Description 09/02/2025 Telephone [facility] MED & PEDS [address] [place], [place] [phone] Chato Thomason MD [address] [place], [place] [phone] Medication Question Social History Tobacco Use Types [...] Telephone Encounter - Linda Pelaez RN - 09/12/2025 1:46 PM EST Fyi. Spoke with pt's mom, Angelica who stated she spoke with pt's psychiatrist and they will take over prescribing Lorazepam as advised by PCP. * Telephone Encounter - Damion Yo - 09/02/2025 1:33 PM EST Tc from mom reporting that pt had a Televisit with Psychiatrist [facility] program. BHN. Psychiatrist requested for pt to only use 1mg lorazepam. Any questions contact mom at [phone] Handwriting Expert number documented in this encounter Plan of Treatment Upcoming Encounters Date Type Department Care Team (Late st Contact Info) Description 09/29/2025 9:00 AM EST Telemedicine [facility] MED & PEDS [address] [place], [place] [phone] Chato Thomason MD 505 [place] [address] 11/28/2025 2:00 PM EST Telemedicine [facility] MED & PEDS [address] [place] [address] Linda Pelaez, WALT 505 [place] [address] documented as of this encounter Visit Diagnoses Not on filedocumented in this encounter Additional Health Concerns Assessment Noted Time PHQ-9 Depression Total Score: 27 025 11:34 AM EDT documented as of this encounter Care Teams Can Closing Machine Operator Relationship Specialty Start Date End Date Chato Thomason MD [address] [place] [address] PCP - General Internal Medicine 10/27/18 Mackenzie Roland Manager Advanced 07/09/24 [facility] 06/12/23 Ezekiel Patricia Manager AdvancedInsurance Collector 06/13/25 documented as of this encounter
--- OUTSIDE RECORDS SUMMARY | 2025-09-24 09:19 | XMS_ITS | Encounter Summary ---
Author Organization [employer] Address [address] [facility] 7 [place] [address] Care Team Providers Care Cloth Washer Operator Name Role Phone Chato Thomason MD Primary Care Provider [phone] Reason for Visit * Reason Onset Date Comments Med Refill 02/02/2025 Encounter Details Date Type Department Care Team (Late st Contact Info) Description 02/02/2025 Telephone [facility] MEDICINE [address] [place] [address] Chato Thomason MD [address] [place], [place] [phone] Med Refill Social History Tobacco Use Types [...] immediate release tablet To be sent to: [facility] - [address] documented in this encounter Plan of Treatment Upcoming Encounters Date Type Department Care Team ([facility] st Contact Info) Description 09/29/2025 9:00 AM EST Telemedicine [facility] MED & PEDS [address] [place] [address] Chato Thomason MD [address] [place] [address] 11/28/2025 2:00 PM EST Telemedicine [facility] MED & PEDS [address] [place] [address] Linda Pelaez RN 505 [place] [address] documented as of this encounter Visit Diagnoses Diagnosis 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) Malignant neoplasm of larynx, unspecified site documented in this encounter Additional Health Concerns Assessment Noted Time PHQ-9 Depression Total Score: 19 024 3:44 PM EDT documented as of this encounter Care Teams Cloth Washer Operator Relationship Specialty Start Date End Date Chato Thomason MD [address] [place] [address] PCP - General Internal Medicine 10/27/18 Mackenzie Roland Administrative Resident 07/09/24 Angela Pzoo Administrative Resident 07/09/24 06/12/25 [facility] 06/12/23 Ezekiel Patricia Administrative ResidentAg Service Manager 06/13/25 documented as of this encounter
--- OUTSIDE RECORDS SUMMARY | 2025-09-24 09:19 | XMS_ITS | Encounter Summary ---
Author Organization [employer] Address [address] [facility] [address] [place] [address] Care Team Providers Care Technical Assoc Name Role Phone Chato Thomason MD Primary Care Provider [phone] Reason for Visit * Reason Onset Date Comments cx appt medical situation needs new date 025 Encounter Details Date Type Department Care Team ([facility] Contact Info) Description 06/21/2025 Telephone [facility] ADULT D[facility]AL [address] [place], [place] [phone] Joe Nash, DMD [address] [place], [place] [phone] cx appt medical situation needs new date [...] schedule however I would send message to data collector to update. documented in this encounter Plan of Treatment Upcoming Encounters Date Type Department Care Team (Late st Contact Info) Description 09/29/2025 9:00 AM EST Telemedicine [facility] MED & PEDS [address] [place] [address] Chato Thomason MD 505 [place] [address] 11/28/2025 2:00 PM EST Telemedicine [facility] MED & PEDS [address] [place] [address] Linda Pelaez, WALT [address] [place], [place] [phone] documented as of this encounter Visit Diagnoses Not on filedocumented in this encounter Additional Health Concerns Assessment Noted Time PHQ-9 Depression Total Score: 19 024 3:44 PM EDT documented as of this encounter Care Teams Technical Assoc Relationship Specialty Start Date End Date Chato Thomason MD 505 [place] [address] PCP - General Internal Medicine 10/27/18 Mackenzie Roland Barrel Handler 07/09/24 [facility] 06/12/23 Ezekiel Patricia Barrel HandlerMedical Economics Consultant 06/13/25 documented as of this encounter
--- OUTSIDE RECORDS SUMMARY | 2025-09-24 09:19 | XMS_ITS | Encounter Summary ---
Author Organization [employer] Address [address] [place] [id number] Care Team Providers Care School Age Teacher Name Role Phone Chato Thomason MD Primary Care Provider [phone] Reason for Referral * Consultation (Routine) - Closed Specialty Diagnoses / Procedures Referred By Maryana singh Referred To Contact Occupational Therapy Diagnoses Neuropathic pain Physical deconditioning Chato Thomason MD [address] [place] [address] Phone: tel: fax: [facility] Phone: tel: fax: Referral ID Status Reason Start Date Expiration Date V isits Requested Visits Authorized [id number] Closed Specialty Services Required 03/03/2025 03/03/2026 1 1 * Consultation (Routine) - Closed Specialty Diagnoses / Procedures Referred By Contac t Referred To Contact Physical Therapy Diagnoses Neuropathic pain Physical deconditioning Chato Thomason MD [address] [place] [address] Phone: tel: fax: [facility] [address] Phone: tel: fax: Referral ID Status Reason Start Date Expiration Date V isits Requested Visits Authorized [id number] Closed Specialty Services Required 02/21/2025 02/21/2026 20 20 Encounter Details Date Type Department Care Team ([facility] st Contact Info) Description 02/17/2025 Orders Only [facility] MED & PEDS [address] [place] [address] Chato Thomason MD [address] [place] [address] Neuropathic pain (Primary Dx); Physical deconditioning Social [...] Info) Description 09/29/2025 9:00 AM EST Telemedicine [facility] MED & PEDS [address] [place] [address] Chaot Thomason MD [address] [place] [address] 11/28/2025 2:00 PM EST Telemedicine [facility] MED & PEDS [address] [place] [address] Linda Pelaez RN 505 [place] [address] Scheduled Referrals Name Type Priority Associated Diagnoses [...] documented as of this encounter Care Teams School Age Teacher Relationship Specialty Start Date End Date Chato Thomason MD [address] [place] [address] PCP - General Internal Medicine 10/27/18 Mackenzie Roland Track Laborer 07/09/24 Angela Pozo Track Laborer 07/09/24 06/12/25 [facility] 06/12/23 Ezekiel Patricia Track LaborerCoining Press Operator 06/13/25 documented as of this encounter
--- OUTSIDE RECORDS SUMMARY | 2025-09-24 09:19 | XMS_ITS | Encounter Summary ---
Author Organization [employer] Address [address] [facility] 7 [place] [address] Care Team Providers Care Thin Film Technician Name Role Phone Chato Thomason MD Primary Care Provider [phone] Reason for Visit * Reason Onset Date Comments Med Refill 02/21/2025 Encounter Details Date Type Department Care Team (Late st Contact Info) Description 02/21/2025 Telephone [facility] MEDICINE [address] [place] [address] Chato Thomason MD 505 [place], [place] [phone] Med Refill Social History Tobacco Use Types [...] 1 MG tablet To be sent to: [facility] - [address] documented in this encounter Plan of Treatment Upcoming Encounters Date Type Department Care Team ([facility] st Contact Info) Description 09/29/2025 9:00 AM EST Telemedicine [facility] MED & PEDS [address] [place] [address] Chato Thomason MD [address] [place] [address] 11/28/2025 2:00 PM EST Telemedicine [facility] MED & PEDS [address] [place] [address] Linda Pelaez RN [address] [place] [address] documented as of this encounter Visit Diagnoses Not on filedocumented in this encounter Additional Health Concerns Assessment Noted Time PHQ-9 Depression Total Score: 19 024 3:44 PM EDT documented as of this encounter Care Teams Thin Film Technician Relationship Specialty Start Date End Date Chato Thomason MD [address] [place] [address] PCP - General Internal Medicine 10/27/18 Mackenzie Roland Flight Controls Engineer 07/09/24 Angela Pozo Flight Controls Engineer 07/09/24 06/12/25 [facility] 06/12/23 Ezekiel Patricia Flight Controls EngineerSupervisor Liquefaction 06/13/25 documented as of this encounter
--- OUTSIDE RECORDS SUMMARY | 2025-09-24 09:19 | XMS_ITS | Encounter Summary ---
Author Organization [employer] Address [address] [facility] 7 [place] [address] Care Team Providers Care Trimming Department Blocker Name Role Phone Chato Thomason MD Primary Care Provider [phone] Reason for Visit * Reason Onset Date Comments pt1 01/26/2025 Encounter Details Date Type Department Care Team ([facility] st Contact Info) Description 01/26/2025 Telephone [facility] MEDICINE [address] [place] [address] Chato Thomason MD [address] [place], [place] [phone] pt1 Social History Tobacco Use Types Packs/Day [...] Yes Provider name or facility name: [address] [place] [address] Escort needed: Y/N: Yes Do you have a wheelchair: Y/N: No If yes- Manual or electric: n/a Visits: (2x monthly) documented in this encounter Plan of Treatment Upcoming Encounters Date Type Department Care Team (Late st Contact Info) Description 09/29/2025 9:00 AM EST Telemedicine [facility] MED & PEDS [address] [place] [address] Chato Thomason MD [address] [place] [address] 11/28/2025 2:00 PM EST Telemedicine [facility] MED & PEDS [address] [place] [address] Linda Pelaez, WALT [address] [place] [address] documented as of this encounter Visit Diagnoses Not on filedocumented in this encounter Additional Health Concerns Assessment Noted Time PHQ-9 Depression Total Score: 19 024 3:44 PM EDT documented as of this encounter Care Teams Trimming Department Blocker Relationship Specialty Start Date End Date Chato Thomason MD [address] [place] [address] PCP - General Internal Medicine 10/27/18 Mackenzie Roland Preboarder 07/09/24 Angela Pozo Preboarder 07/09/24 06/12/25 [facility] 06/12/23 Ezekiel Patricia PreboarderBlood And Plasma Laboratory Assistant 06/13/25 documented as of this encounter
--- OUTSIDE RECORDS SUMMARY | 2025-09-24 09:19 | XMS_ITS | Encounter Summary ---
Author Organization [employer] Address [address] [place] [address] [address] [place] [address] Care Team Providers Care Investment Analyst Name Role Phone Chato Thomason MD Primary Care Provider [phone] Reason for Referral * Consultation (Routine) - Closed Specialty Diagnoses / Procedures Referred By Contto singh Referred To Contact Dermatology Diagnoses Spongiotic dermatitis Chato Thomason MD [address] [place] [address] Phone: tel: fax: Gail Srinivasan [address] [place] [address] Phone: tel: fax: Referral ID Status Reason Start Date Expiration Date V isits Requested Visits Authorized [id number] Closed Specialty Services Required 09/08/2025 09/08/2026 1 1 Encounter Details Date Type Department Care Team ([facility] st Contact Info) Description 09/02/2025 Orders Only [facility] MED & PEDS [address] [place], [place] [phone] Chato Thomason MD [address] [place], [place] [phone] History of laryngectomy (Primary Dx); Long-term current use of opiate analgesic; Spongiotic dermatitis Social History Tobacco Use Types [...] Upcoming Encounters Date Type Department Care Team ([facility] st Contact Info) Description 09/29/2025 9:00 AM EST Telemedicine [facility] CH[facility] MED & PEDS [address] [place], [place] [phone] Chato Thomason MD [address] [place] [address] 11/28/2025 2:00 PM EST Telemedicine [facility] CH[facility] MED & PEDS [address] [place] [address] Linda Pelaez, WALT [address] [place] [address] Scheduled Referrals Name Type Priority Associated Diagnoses Order Schedule Referral to Dermatology Outpatient Referral Routine Spongiotic dermatitis Expected: 09/08/2025 (Approximate), Expires: 09/08/2026 documented as of this encounter Visit Diagnoses Diagnosis History of laryngectomy- Primary Other postprocedural status Long-term current use of opiate analgesic Encounter for long-term (current) use of other medications Spongiotic dermatitis Contact dermatitis and other eczema, due to unspecified cause documented in this encounter Additional Health Concerns Assessment Noted Time PHQ-9 Depression Total Score: 27 025 11:34 AM EDT documented as of this encounter Care Teams Investment Analyst Relationship Specialty Start Date End Date Chato Thomason MD [address] [place] [address] PCP - General Internal Medicine 10/27/18 Mackenzie Roland Talent Acquisition Administrator 07/09/24 [facility] 06/12/23 Ezekiel Patricia Talent Acquisition AdministratorMechanical Fitter 06/13/25 documented as of this encounter
== END 2025-09-24 09:15 | disposition home or self-care (01) ==
LOC: HO.CT 09:14
PROVIDERS: PCP Internal Medicine; Visit Provider Nurse Practitioner Family
DX: R09.02 Hypoxemia (principal); Z90.02 Acquired absence of larynx; Z85.21 Personal history of malignant neoplasm of larynx
CPT/HCPCS: 71250

== ENCOUNTER → 2025-09-24 09:16 | Outpatient (BNV) | payer MEDICAID, SELFPAY | PROVIDERS: PCP Internal Medicine; Visit Provider Radiology Vascular & Interventional Radiology | DX: Z90.02 Acquired absence of larynx (principal); Z93.1 Gastrostomy status | CPT/HCPCS: 71250 ==